=== PATIENT | female | born 1935 | race Caucasian/White ===

== ENCOUNTER 2021-11-04 15:55 | Inpatient (IN) | payer MEDICARE, BC, SELFPAY ==
[2021-11-04] VITALS (17 sets, daily range): BP systolic 90–139; BP diastolic 33–97; PULSE 67–92; RESP 13–20; TEMP 36.1–36.7; O2SAT 96–100
--- NOTE | 2021-11-04 16:30 | RT.EKG_ITS ---
APPROVED REPORT Exam: Resting ECG Reason for Exam: Syncope Patient Location: E HR:70 bpm ECG Measurements Heart Rate 70 AXIS ND 210 P [id number] QRSd 127 QRS -51 QT 438 T 42 QTc 472 Conclusion Atrial-paced rhythm RBBB and LAFB...QRSd >120mS, axis(-40,240) Probable left ventricular hypertrophy...(RaVL+SV3)xQRSd >300
--- NOTE | 2021-11-04 16:52 | ED.GENADUL_ITS ---
Discharge Plan Disposition Patient Disposition: [facility] INPATIENT Condition: Stable Discharge Details Clinical Impression: Anemia due to GI blood loss Admit Date/Time: 11/04/21 18:18 Admit Provider: Christina Rajan Attending Provider: Christina Rajan Primary Care Provider: Dede Miller ED Provider: Ofelia Oquendo Medical Decision Making 86-year-old female presents to the ER via EMS with chief complaint syncopal episode occurred prior to arrival. Patient was making supper in the kitchen when she fainted she denies hitting her head she reports her assisted her down to the floor. She reports having bright red blood from her colostomy stoma for the last 11 days. She had a colostomy placed in [place]. She she denies any abdominal pain, chest pain, shortness of breath, headache or any other associated symptoms. Patient states that she feels okay now. She does have a past medical history of high cholesterol, hypertension, atrial fibrillation, breast cancer, colon cancer with a hemicolectomy and a colostomy. She is alert and oriented x3 upon initial exam she does have dark red blood noted in the ostomy bag. CBC, CMP, PT, PTT, type and screen, serial troponins and EKG ordered. 1710: Critical lab result received from lab hemoglobin 6.9 hematocrit 22.3, will plan for blood transfusion. Discussed plan of care for blood transfusion with patient and who verbalized understanding. General surgeon on-call Dr. Rajan paged. CBC shows white blood cell count of 9.94 RBCs of 2.40, hemoglobin 6.9 hematocrit 22.3, MCHC 30.9%, RDW 15.1%, absolute neutrophils 7 2, PT 11.3 INR 1.1 APTT 19.2, potassium 5.7 chloride 108, carbon dioxide 20 point, BUN 38, creatinine 2.7 GFR 16.7 1814: Spoke with Dr. Rajan general surgeon on-call who agrees to accept patient for admission at this time. HPI General Mode of arrival: EMS . Date/Time Provider Initiated Documentation: 11/04/21 16:40 . Limitations to Documentation: no limitations . Information obtained by: patient, RN notes reviewed and old records reviewed . HPI Narrative: 86-year-old female presents to the ER via EMS with chief complaint syncopal episode occurred prior to arrival. Patient was making supper in the kitchen when she fainted she denies hitting her head she reports her assisted her down to the floor. She reports having bright red blood from her colostomy stoma for the last 11 days. She had a colostomy placed in [facility]. She she denies any abdominal pain, chest pain, shortness of breath, headache or any other associated symptoms. Patient states that she feels okay now. She does have a past medical history of high cholesterol, hypertension, atrial fibrillation, breast cancer, colon cancer with a hemicolectomy and a colostomy. She is alert and oriented x3 upon initial exam she does have dark red blood noted in the ostomy bag. Related Data Home Medications Medication Instructions Recorded Confirmed gabapentin 600 mg PO BID tab-cap NS 09/16/16 11/04/21 metoprolol succinate 100 mg PO QPM 03/13/18 11/04/21 naproxen sodium [Aleve] 220 mg PO BID 11/04/21 11/04/21 Allergies Allergy/AdvReac Type Severity Reaction Status Date / Time No Known Allergies Allergy Unverified 11/04/21 16:31 General Stated Complaint: Dizzy/Sync LETI: 2 Review of Systems All systems reviewed & are unremarkable except as noted in HPI and below Gastrointestinal Gastrointestinal: Denies abdominal pain, Reports hematochezia (X11 days from colostomy) and Denies hematemesis [facility] Active Problem List 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 (Acute) Discharge planning issues (Acute) Medical History Breast cancer Remains RADHA Chronic pain in left foot Hypercholesterolemia Hypertension Paroxysmal atrial fibrillation Surgical History 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 Appears stated age. Normal body habitus. Pale. Head: Normocephalic, no trauma. Eyes: Pupils PERRL, Red reflex noted, EOM's intact. Eyelids symmetrical without lesions, discharge, or swelling. ENT: Bilateral TM's WNL, External ear normal to inspection, no mastoid TTP, swe lling, or erythema, Nasal turbinates WNL, no nasal discharge. Normal dentition, Posterior pharynx WNL, no exudate. Chest: RRR, Normal S1, S2, distal pulses intact. Resp: Lungs clear to auscultation bilaterally, no wheezes, rales, or rhonchi. Abdomen: Soft, non-distended, Normoactive bowel sounds all 4 quads. Colostomy noted to the right lower quadrant. There is dark blood noted in the colostomy bag. Musculoskeletal: Normal gait, 5/5 strength to all four extremities. Skin: No suspicious rashes or lesions. Capillary refill less than 2 sec. Neurologic: Cranial nerves II-XII intact. Alert and oriented x 3. Motor: No deficits noted. Sensory: Intact bilaterally all 4 extremities. Reflexes: DTR's intact bilaterally.. Hematologic/Lymphatic: No ecchymosis, no lymphadenopathy. Course Vital Signs Vital signs: Vital Signs Temperature 36.7 C 11/04/21 16:25 Pulse 70 11/04/21 16:25 Respiratory Rate 15 11/04/21 16:25 Blood Pressure 101/54 L 11/04/21 16:25 Pulse Oximetry 99 11/04/21 16:25 Temperature 36.7 C 11/04/21 16:25 Temperature Source Skin 11/04/21 16:25 Pulse 70 11/04/21 16:25 Respiratory Rate 15 11/04/21 16:25 Respiratory Effort 11/04/21 16:25 Blood Pressure 101/54 L 11/04/21 16:25 Blood Pressure Position Supine 11/04/21 16:25 Pulse Oximetry 99 11/04/21 16:25 Oxygen Delivery Method Room Air 11/04/21 16:25 Oxygen Flow Rate 0 11/04/21 16:25 Pain Level 0 11/04/21 16:25
[2021-11-04 16:55] LABS: Abs Immature Grans 0.04 10^3/uL (0.0-0.06); Absolute Basophil Count 0.07 10^3/uL (0.0-0.2); Absolute Eosinophil Count 0.18 10^3/uL (0.0-0.7); Absolute Lymphocyte Count 2.28 10^3/uL (1.2-3.4); Absolute Monocyte Count 0.65 10^3/uL (0.1-0.8); Absolute Neutrophil Count 6.72 10^3/uL (1.2-6.7); Basophils % 0.7; Eosinophils % 1.8; Immature Grans % 0.4; Lymphocytes % 22.9; MCH 28.8 pg (27.0-33.0); MCHC 30.9 % (32.0-36.0); MCV 92.9 fL (80-95); Monocytes % 6.5; Neutrophils % 67.7; Nucleated RBC 0 %; Platelet Count 158 10^3/uL (130-400); RDW 15.1 % (11.7-14.6); WBC 9.94 10^3/uL (4.4-10.8)
[2021-11-04 17:10] LABS: Diff Comment RBC Morph Reviewed; HCT 22.3 % (36.0-46.0); HGB 6.9 g/dL (11.2-15.7); RBC Morphology Normal
[2021-11-04 17:11] LABS: ALT 19 U/L (14-59); AST 21 U/L (15-37); Albumin 2.9 g/dL (3.4-5.0); Alkaline Phosphatase 69 U/L (46-116); Anion Gap 10.4 mmol/L (3-11); BUN 38 mg/dL (7-18); Bilirubin, Total 1.3 mg/dL (0.2-1.0); CO2 20.6 mmol/L (21.0-32.0); CREATININE 2.7 mg/dL (0.55-1.02); Calcium 8.8 mg/dL (8.5-10.1); Chloride 108 mmol/L (98-107); Estimated GFR 16.75 (mL/min/1.73m2); Glucose 168 mg/dL (74-106); INR 1.1 (0.9-1.1); Magnesium 1.9 mg/dL (1.8-2.4); PTT Activated 19.2 sec (21.0-27.5); Potassium 5.7 mmol/L (3.5-5.1); Prothrombin Time 11.3 sec (9.3-11.0); Sodium 139 mmol/L (136-145); Total Protein 5.5 g/dL (6.4-8.2)
[2021-11-04 17:22] LABS: Troponin I < 0.05 ng/mL (<0.06)
[2021-11-04 17:29] LABS: Bilirubin Negative (Negative); Blood Negative (Negative); Clarity Sl Cloudy (Clear); Glucose Negative (Negative); Ketones Negative (Negative); Leukocyte Esterase Negative (Negative); Nitrite Negative (Negative); Specific Gravity >= 1.030 (1.005-1.025); Urobilinogen 0.2 EU/dL (Up TO 0.2); pH 5.5 (5-8)
[2021-11-04 18:40] LABS: Source Nasal/Nares
--- NOTE | 2021-11-04 18:53 | W.PM.HP.N ---
Date of service: 11/04/21 Time of Service: 18:53 Assessment and Plan Assessment and plan (1) 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: Status: Acute (2) Anemia due to GI blood loss: Status: Acute Assessment and plan: -transfuse to hgb 8 PPI gentle fluids. Pt Cr has generally been nl range -pt has had similar episodes in the past. possible colonoscopy when medically stable risks: Bleeding, infection, perforation, aspiration, complications of anesthesia, disruption of colostomy requiring surgery. obtain medical records from [facility] (3) Colon cancer: Status: Chronic (4) Paroxysmal atrial fibrillation: Status: Acute (5) Hypertension: Status: Acute (6) Hypercholesterolemia: Status: Acute (7) Breast cancer: Status: Acute (8) Chronic pain in left foot: Status: Acute (9) Hyperkalemia: Status: Acute (10) Elevated serum creatinine: Status: Acute History of Present Illness Consults Consult date: 11/04/21 Narrative: pt came to the ED after a syncopa; episode. In the ER she was found to have a hgb ~6. She has a hx of anemia per our system. She has a long standing ostoy due to colon cancer. She bleeding from her colectomy in the past. She is due to have a colonoscopy. She has had polyps for colon cancer. I did review her chart from the. She has minimized her having quite bleeding from the ostomy itself. It is not explained degree of bleeding that she is having. Review of Systems All systems reviewed & are unremarkable except as noted in HPI and below PFSH Active Problem List Elevated serum creatinine (Acute) Hyperkalemia (Acute) Chronic pain in left foot (Acute) Colon cancer (Chronic) Paroxysmal atrial fibrillation (Acute) Hypertension (Acute) Hypercholesterolemia (Acute) Breast cancer (Acute) 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 (Acute) Discharge planning issues (Acute) Anemia due to GI blood loss (Acute) Surgical History 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 Social History (Reviewed 11/05/21 @ 11:50 by UZMA Harley Smoking/Tobacco Use Status: Never Smoking risk assessment performed?: Yes Alcohol Intake: never Drug use: Never Do you feel safe in your relationship?: Yes Meds Allergies and Home Medications Allergies Allergy/AdvReac Type Severity Reaction Status Date / Time No Known Allergies Allergy Unverified 11/04/21 16:31 Home Medications Medication Instructions Recorded Confirmed Type gabapentin 600 mg PO BID tab-cap NS 09/16/16 11/04/21 History metoprolol succinate 100 mg PO QPM 03/13/18 11/04/21 History naproxen sodium [Aleve] 220 mg PO BID 11/04/21 11/04/21 History Exam Resp Effort & Inspection: normal respiratory effort and able to speak in complete sentences Auscultation: clear to auscultation bilaterally Cardio Rate: regular rate Rhythm: regular rhythm GI Other: Surgical changes noted. No abdominal hernia. Ostomy in the right upper quadrant. Several small small pinpoint mucosal bleeders. There is dark old clear blood in the bag and no clots. Good bowel sounds and no abdominal pain Results Labs Result diagrams: 11/05/21 07:12 11/05/21 07:12 Labs: Laboratory Results - last 24 hr 11/04/21 11/04/21 11/04/21 16:20 16:20 16:20 WBC 9.94 RBC 2.40 L Hgb 6.9 L* Hct 22.3 L MCV 92.9 MCH 28.8 MCHC 30.9 L RDW 15.1 H Plt Count 158 MPV 10.0 Immature Gran % 0.4 Neutrophils % 67.7 Lymphocytes % 22.9 Monocytes % 6.5 Eosinophils % 1.8 Basophils % 0.7 Nucleated RBC % 0 Absolute Neutrophils 6.72 H Absolute Lymphocytes 2.28 Absolute Monocytes 0.65 Absolute Eosinophils 0.18 Absolute Basophils 0.07 RBC Morphology Normal PT 11.3 H INR 1.1 APTT 19.2 L Sodium 139 Potassium 5.7 H Chloride 108 H Carbon Dioxide 20.6 L Anion Gap 10.4 BUN 38 H Creatinine 2.7 H Estimated GFR/1.73 m2 16.75 Glucose 168 H Calcium 8.8 Magnesium 1.9 Total Bilirubin 1.3 H AST 21 ALT 19 Alkaline Phosphatase 69 Troponin I < 0.05 Total Protein 5.5 L Albumin 2.9 L Urine Color Urine Clarity Urine pH Ur Specific [place] Urine Protein Urine Ketones Urine Blood Urine Nitrite Urine Bilirubin Urine Urobilinogen Ur Leukocyte Esterase Urine Glucose COVID-19 Source Patient ABO/Rh Antibody Screen Antigen Identification Crossmatch 11/04/21 11/04/21 11/04/21 16:50 17:20 18:30 WBC RBC Hgb Hct MCV MCH MCHC RDW Plt Count MPV Immature Gran % Neutrophils % Lymphocytes % Monocytes % Eosinophils % Basophils % Nucleated RBC % Absolute Neutrophils Absolute Lymphocytes Absolute Monocytes Absolute Eosinophils Absolute Basophils RBC Morphology PT INR APTT Sodium Potassium Chloride Carbon Dioxide Anion Gap BUN Creatinine Estimated GFR/1.73 m2 Glucose Calcium Magnesium Total Bilirubin AST ALT Alkaline Phosphatase Troponin I Total Protein Albumin Urine Color Yellow Urine Clarity Sl Cloudy Urine pH 5.5 Ur Specific [place] >= 1.030 H Urine Protein Negative Urine Ketones Negative Urine Blood Negative Urine Nitrite Negative Urine Bilirubin Negative Urine Urobilinogen 0.2 Ur Leukocyte Esterase Negative Urine Glucose Negative COVID-19 Source Nasal/Nares Patient ABO/Rh A Positive Antibody Screen NEGATIVE Antigen Identification K Antigen - NEGATIVE Crossmatch See Detail Last Vital Signs Temp 36.7 C 11/04/21 16:25 Pulse 67 11/04/21 18:16 Resp 18 11/04/21 18:16 BP 100/60 11/04/21 18:16 Pulse Ox 99 11/04/21 17:48
[2021-11-04 19:24] LABS: COVID-19 PCR Negative (Negative)
[2021-11-04 19:34] LABS: Troponin I < 0.05 ng/mL (<0.06)
[2021-11-04 21:25] LABS: TSH 1.43 uIU/mL (0.36-3.74)
[2021-11-04] MEDS: Pantoprazole 40 MG VIAL IVP (21:43)
[2021-11-04] MEDS: diphenhydrAMINE 25 MG CAP PO (21:44)
[2021-11-04] MEDS: Gabapentin 600 MG TAB PO (21:44)
[2021-11-04] MEDS: Normal Saline Flush 10 ML SYR IVP (21:44)
[2021-11-04] MEDS: Acetaminophen 500 MG TAB 1000 MG PO (21:44)
[2021-11-05] VITALS (18 sets, daily range): BP systolic 105–138; BP diastolic 51–79; PULSE 58–77; RESP 12–70; TEMP 35.9–37; O2SAT 77–99; BMI 32.5
[2021-11-05] MEDS: Normal Saline 1,000 ML 100 ML IV (06:20)
[2021-11-05] MEDS: Normal Saline Flush 10 ML SYR IVP ×3 (06:21→14:04)
--- NOTE | 2021-11-05 07:25 | W.PM.PROGNOT ---
Documented by User: HUNTER Oglesby 11/05/21 07:30 Date of Service Date of service: 11/05/21 Time of Service: 07:25 Assessment and Plan Assessment and plan (1) 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: Status: Acute (2) Anemia due to GI blood loss: Status: Acute Assessment and plan: -transfuse to hgb 8; Morning labs pending -PPI -gentle fluids. Pt Cr has generally been nl range -pt has had similar episodes in the past. Possible colonoscopy when medically stable (3) Colon cancer: Status: Chronic (4) Paroxysmal atrial fibrillation: Status: Acute (5) Hypertension: Status: Acute (6) Hypercholesterolemia: Status: Acute (7) Breast cancer: Status: Acute (8) Chronic pain in left foot: Status: Acute (9) Hyperkalemia: Status: Acute (10) Elevated serum creatinine: Status: Acute Subjective Subjective Interval history since last seen: Patient reports that this morning she was emptying her ostomy, and noted continued bright red blood. She states that while walking to and from the toilet, experienced nausea and light headedness. She denies any pain, nausea or vomiting at this time. Exam Const General: cooperative and comfortable Orientation: alert and oriented x3 Resp Effort & Inspection: normal respiratory effort, no audible wheezes and no cough GI Inspection: normal to inspection Palpation: soft, no guarding and nontender Other: Ostomy- with dark, red blood noted. Minimal stool. Objective Last Vital Signs Temp 35.9 C L 11/05/21 06:47 Pulse 73 11/05/21 06:47 Resp 18 11/05/21 06:47 BP 105/55 L 11/05/21 06:47 Pulse Ox 99 11/05/21 06:47 Laboratory Results - last 24 hr 11/04/21 11/04/21 11/04/21 16:20 16:20 16:20 WBC 9.94 RBC 2.40 L Hgb 6.9 L* Hct 22.3 L MCV 92.9 MCH 28.8 MCHC 30.9 L RDW 15.1 H Plt Count 158 MPV 10.0 Immature Gran % 0.4 Neutrophils % 67.7 Lymphocytes % 22.9 Monocytes % 6.5 Eosinophils % 1.8 Basophils % 0.7 Nucleated RBC % 0 Absolute Neutrophils 6.72 H Absolute Lymphocytes 2.28 Absolute Monocytes 0.65 Absolute Eosinophils 0.18 Absolute Basophils 0.07 RBC Morphology Normal PT 11.3 H INR 1.1 APTT 19.2 L Sodium 139 Potassium 5.7 H Chloride 108 H Carbon Dioxide 20.6 L Anion Gap 10.4 BUN 38 H Creatinine 2.7 H Estimated GFR/1.73 m2 16.75 Glucose 168 H Calcium 8.8 Magnesium 1.9 Total Bilirubin 1.3 H AST 21 ALT 19 Alkaline Phosphatase 69 Troponin I < 0.05 Total Protein 5.5 L Albumin 2.9 L TSH Urine Color Urine Clarity Urine pH Ur Specific [place] Urine Protein Urine Ketones Urine Blood Urine Nitrite Urine Bilirubin Urine Urobilinogen Ur Leukocyte Esterase Urine Glucose COVID-19 Source SARS-CoV-2 (PCR) Patient ABO/Rh Antibody Screen Antigen Identification Crossmatch 11/04/21 11/04/21 11/04/21 16:50 17:20 18:30 WBC RBC Hgb Hct MCV MCH MCHC RDW Plt Count MPV Immature Gran % Neutrophils % Lymphocytes % Monocytes % Eosinophils % Basophils % Nucleated RBC % Absolute Neutrophils Absolute Lymphocytes Absolute Monocytes Absolute Eosinophils Absolute Basophils RBC Morphology PT INR APTT Sodium Potassium Chloride Carbon Dioxide Anion Gap BUN Creatinine Estimated GFR/1.73 m2 Glucose Calcium Magnesium Total Bilirubin AST ALT Alkaline Phosphatase Troponin I Total Protein Albumin TSH Urine Color Yellow Urine Clarity Sl Cloudy Urine pH 5.5 Ur Specific [place] >= 1.030 H Urine Protein Negative Urine Ketones Negative Urine Blood Negative Urine Nitrite Negative Urine Bilirubin Negative Urine Urobilinogen 0.2 Ur Leukocyte Esterase Negative Urine Glucose Negative COVID-19 Source Nasal/Nares SARS-CoV-2 (PCR) Negative Patient ABO/Rh A Positive Antibody Screen NEGATIVE Antigen Identification K Antigen - NEGATIVE Crossmatch See Detail 11/04/21 11/04/21 19:00 19:50 WBC RBC Hgb Hct MCV MCH MCHC RDW Plt Count MPV Immature Gran % Neutrophils % Lymphocytes % Monocytes % Eosinophils % Basophils % Nucleated RBC % Absolute Neutrophils Absolute Lymphocytes Absolute Monocytes Absolute Eosinophils Absolute Basophils RBC Morphology PT INR APTT Sodium Potassium Chloride Carbon Dioxide Anion Gap BUN Creatinine Estimated GFR/1.73 m2 Glucose Calcium Magnesium Total Bilirubin AST ALT Alkaline Phosphatase Troponin I < 0.05 Total Protein Albumin TSH 1.43 Urine Color Urine Clarity Urine pH Ur Specific [place] Urine Protein Urine Ketones Urine Blood Urine Nitrite Urine Bilirubin Urine Urobilinogen Ur Leukocyte Esterase Urine Glucose COVID-19 Source SARS-CoV-2 (PCR) Patient ABO/Rh Antibody Screen Antigen Identification Crossmatch Documented by User: Christina Rjaan DO 11/05/21 11:57 Assessment and Plan Assessment and plan (1) 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: Status: Acute (2) Elevated serum creatinine: Status: Acute Assessment and plan: Anesthesia. Cardiovascular elevated.. I think the benefits outweigh the risks with the findings. Hemorrhage is coming from. I do not feel that bleeding from the patch resulted in her low hemoglobin.
[2021-11-05 07:36] LABS: Abs Immature Grans 0.03 10^3/uL (0.0-0.06); Absolute Basophil Count 0.06 10^3/uL (0.0-0.2); Absolute Eosinophil Count 0.15 10^3/uL (0.0-0.7); Absolute Lymphocyte Count 3.41 10^3/uL (1.2-3.4); Absolute Monocyte Count 0.78 10^3/uL (0.1-0.8); Absolute Neutrophil Count 5.66 10^3/uL (1.2-6.7); Basophils % 0.6; Eosinophils % 1.5; HCT 30.2 % (36.0-46.0); HGB 9.8 g/dL (11.2-15.7); Immature Grans % 0.3; Lymphocytes % 33.8; MCH 28.6 pg (27.0-33.0); MCHC 32.5 % (32.0-36.0); MPV 9.2 fL (8.0-11.0); Monocytes % 7.7; Neutrophils % 56.1; Nucleated RBC 0 %; Platelet Count 112 10^3/uL (130-400); RBC 3.43 10^6/uL (3.93-5.22); RDW 15.1 % (11.7-14.6); RDW-SD 48.4 fL; WBC 10.09 10^3/uL (4.4-10.8)
[2021-11-05 07:39] LABS: Reticulocyte 2.9 % (0.5-2.4)
[2021-11-05 07:53] LABS: Anion Gap 11.2 mmol/L (3-11); BUN 45 mg/dL (7-18); CO2 19.8 mmol/L (21.0-32.0); CREATININE 3.1 mg/dL (0.55-1.02); Calcium 8.8 mg/dL (8.5-10.1); Chloride 109 mmol/L (98-107); Estimated GFR 14.28 (mL/min/1.73m2); Glucose 102 mg/dL (74-106); Potassium 5.5 mmol/L (3.5-5.1); Sodium 140 mmol/L (136-145)
[2021-11-05 08:22] LABS: Ferritin 32 ng/mL (8-252); Magnesium 1.9 mg/dL (1.8-2.4)
--- NOTE | 2021-11-05 08:44 | PDOC.CMIN ---
- If Service Date Differs Date of service: 11/05/21 Time of Service: 08:44 Care Management Initial Assess REASON FOR HOSPITALIZATION:: GI Bleeding, Anemia PAST MEDICAL HISTORY/PAST SURGICAL HISTORY:: Patient reports that this morning she was emptying her ostomy, and noted continued bright red blood. She states that while walking to and from the toilet, experienced nausea and light headedness. She denies any pain, nausea or vomiting at this time. Breast cancer. Remains RADHA. Chronic pain in left foot. Hypercholesterolemia. Hypertension. Paroxysmal atrial fibrillation. Colonoscopy. 2013-Tubullovillous adenoma of the rectosigmoid-Dr. Park @ [facility] [place]-no recurrence. Colostomy. Hemicolectomy (06/30/13). 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 Independent at baseline with ADLs, does have FWW. CURRENT FUNCTIONAL STATUS:: Annamarie was brought to the OR today for a Flexible sigmoidoscopy. She was drowsy this afternoon when CM attempted to meet with her. ADVANCE DIRECTIVES:: None on file. Has patient been provided with info about the portal/API?: No Did the patient sign up for the portal?: No CODE STATUS:: Full Code INSURANCE COVERAGE / FINANCIAL ISSUES:: [employer] IDs only. MCR CURRENT HOME/COMMUNITY SERVICES/EQUIPMENT:: [facility] PRIMARY CARE PHYSICIAN:: Dede Miller POTENTIAL DISCHARGE NEEDS:: Follow up appointments. PATIENT/FAMILY EDUCATION NEEDS:: Review discharge instructions, discuss Ask Me Three. ANTICIPATED BARRIERS TO DISCHARGE:: None identified. TRANSPORTATION:: Via private vehicle with family. PLAN:: Annamarie will return home when ready per MD. She will follow up with her PCP and plan of care as prescribed. She will transport via private vehicle with family.
[2021-11-05 08:45] LABS: Iron 150 ug/dL (50-170); Total Iron Binding Capacity 321 ug/dL (250-450); Transferrin Sat 47 % (15-50)
[2021-11-05] MEDS: Gabapentin 600 MG TAB PO ×2 (08:53→19:41)
[2021-11-05] MEDS: Pantoprazole 40 MG VIAL IVP (08:53)
--- NOTE | 2021-11-05 11:26 | W.ANESPRE ---
General Info Date of Service Date Performed: 11/05/21 Height: 4 ft 11 in Weight: 73.1 kg Body Mass Index (BMI): 32.5 Surgical Procedure: Operation Date: 11/05/21 13:25 Proposed Procedures Side Surgeon p Flexible Sigmoidoscopy Christina Rajan, DO Meds Allergies and Home Medications Allergies Allergy/AdvReac Type Severity Reaction Status Date / Time No Known Allergies Allergy Unverified 11/04/21 16:31 Home Medication Medication Instructions Recorded gabapentin 600 mg PO BID tab-cap NS 09/16/16 metoprolol succinate 100 mg PO QPM 03/13/18 naproxen sodium [Aleve] 220 mg PO BID 11/04/21 Current Visit Medications: Current Medications Generic Name Dose Route Start Last Admin Trade Name Freq PRN Reason Stop Dose Admin Acetaminophen 1,000 mg 11/04/21 18:23 11/04/21 21:44 Acetaminophen 500 Mg Tab PO 1,000 mg Q6H PRN Administration Abdominal Pain Acetaminophen 650 mg 11/04/21 19:00 Acetaminophen 325 Mg Tab PO TODAY HENNA Diphenhydramine HCl 25 mg 11/04/21 18:30 11/04/21 21:44 Diphenhydramine 25 Mg Cap PO 25 mg TODAY HENNA Administration Gabapentin 600 mg 11/04/21 20:00 11/05/21 08:53 Gabapentin 600 Mg Tab PO 600 mg BID HENNA Administration Sodium Chloride 500 mls @ 0 mls/hr 11/04/21 18:18 Saline 500ml Bag IV PRN PRN As Directed Sodium Chloride 500 mls @ 0 mls/hr 11/04/21 18:23 Saline 500ml Bag IV PRN PRN As Directed Sodium Chloride 1,000 mls @ 100 mls/hr 11/04/21 18:30 11/05/21 06:20 Saline 1000ml Bag IV 100 mls/hr INFUSION HENNA Administration IV Miscellaneous Supplies 1 each 11/04/21 18:30 Iv Access IV DIRECTED HENNA IV Miscellaneous Supplies 1 each 11/04/21 18:30 Iv Access IV DIRECTED HENNA Morphine Sulfate 2 mg 11/04/21 18:23 Morphine 2 Mg/Ml Syr IVP Q1H PRN PRN Ondansetron HCl 4 mg 11/04/21 18:23 Ondansetron 4 Mg/2 Ml Vial IVP Q4H PRN PRN Pantoprazole Sodium 40 mg 11/05/21 08:30 11/05/21 08:53 Pantoprazole 40 Mg Vial IVP 40 mg DAILY HENNA Administration Pantoprazole Sodium 40 mg 11/04/21 20:00 11/04/21 21:43 Pantoprazole 40 Mg Vial IVP 40 mg Q24H HENNA Administration Sodium Chloride 0 ml 11/04/21 18:18 11/05/21 08:58 Normal Saline Flush 10 Ml Syr IVP 10 ml PRN PRN Administration Sodium Chloride 0 ml 11/04/21 18:23 Normal Saline Flush 10 Ml Syr IVP PRN PRN PFSH Active Problems Active Problems: Problem Status Onset Code Elevated serum creatinine R79.89 Hyperkalemia E87.5 Chronic pain in left foot Colon cancer C18.9 Paroxysmal atrial fibrillation Hypertension Hypercholesterolemia Breast cancer 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 K94.11 Discharge planning issues Z02.9 Anemia due to GI blood loss D50.0 Medical History Active Problem List Elevated serum creatinine (Acute) Hyperkalemia (Acute) Chronic pain in left foot (Acute) Colon cancer (Chronic) Paroxysmal atrial fibrillation (Acute) Hypertension (Acute) Hypercholesterolemia (Acute) Breast cancer (Acute) 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 (Acute) Discharge planning issues (Acute) Anemia due to GI blood loss (Acute) Surgical History Surgical History 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 Tobacco Smoking/Tobacco Use Status: Never Alcohol Alcohol Intake: never Substance Use Substance use: Never Vital Signs and Lab Results Vital Signs Most Recent Vital Signs in EMR: Most Recent Vital Signs Temp Pulse Resp BP Pulse Ox 36.7 C 58 L 16 132/68 96 11/05/21 08:27 11/05/21 08:27 11/05/21 08:27 11/05/21 08:27 11/05/21 08:27 Lab Results Result Diagrams: 11/05/21 07:12 11/05/21 07:12 Blood Type / Crossmatch: Patient ABO/Rh A Positive 11/04/21 16:50 11/04/21 Antibody Screen NEGATIVE 11/04/21 16:50 11/04/21 Crossmatch See Detail 11/04/21 16:50 11/04/21 Complete Blood Count: White Blood Count 10.09 10^3/uL (4.4-10.8) 11/05/21 07:12 11/05/21 Red Blood Count 3.43 10^6/uL (3.93-5.22) L 11/05/21 07:12 11/05/21 Hemoglobin 9.8 g/dL (11.2-15.7) L 11/05/21 07:12 11/05/21 Hematocrit 30.2 % (36.0-46.0) L 11/05/21 07:12 11/05/21 Platelet Count 112 10^3/uL (130-400) L 11/05/21 07:12 11/05/21 Complete Metabolic Panel: Sodium Level 140 mmol/L (136-145) 11/05/21 07:12 11/05/21 Potassium Level 5.5 mmol/L (3.5-5.1) H 11/05/21 07:12 11/05/21 Chloride Level 109 mmol/L (98-107) H 11/05/21 07:12 11/05/21 Carbon Dioxide Level 19.8 mmol/L (21.0-32.0) L 11/05/21 07:12 11/05/21 Blood Urea Nitrogen 45 mg/dL (7-18) H 11/05/21 07:12 11/05/21 Creatinine 3.1 mg/dL (0.55-1.02) H 11/05/21 07:12 11/05/21 Estimated GFR/1.73 m2 14.28 (mL/min/1.73m2) 11/05/21 07:12 11/05/21 Magnesium Level 1.9 mg/dL (1.8-2.4) 11/05/21 07:12 11/05/21 Calcium Level 8.8 mg/dL (8.5-10.1) 11/05/21 07:12 11/05/21 Albumin 2.9 g/dL (3.4-5.0) L 11/04/21 16:20 11/04/21 Glucose Level 102 mg/dL (74-106) 11/05/21 07:12 11/05/21 Liver Function Panel: Alanine Aminotransferase (ALT/SGPT) 19 U/L (14-59) 11/04/21 16:20 11/04/21 Aspartate Amino Transf (AST/SGOT) 21 U/L (15-37) 11/04/21 16:20 11/04/21 Coagulation Panel: INR International Normalized Ratio 1.1 (0.9-1.1) 11/04/21 16:20 11/04/21 Prothrombin Time 11.3 sec (9.3-11.0) H 11/04/21 16:20 11/04/21 Activated Partial Thromboplast Time 19.2 sec (21.0-27.5) L 11/04/21 16:20 11/04/21 Cardiac Panel: Troponin I < 0.05 ng/mL (<0.06) 11/04/21 19:00 11/04/21 Arterial Blood Gas: No Data to Display Venous Blood Gas: No Data to Display Pancreas Panel: No Data to Display Thyroid Panel: Thyroid Stimulating Hormone (TSH) 1.43 uIU/mL (0.36-3.74) 11/04/21 19:50 11/04/21 Infectious Disease: Coronavirus (COVID-19)(PCR) Negative (Negative) 11/04/21 18:30 11/04/21 Coronavirus 2019 Source Nasal/Nares 11/04/21 18:30 11/04/21 Blood Cultures: No Data to Display Toxicology Panel: No Data to Display Imaging and Studies Imaging and Studies Study information below may be from another EMR and interpreted by another provider. Please see original notes in EMR for more complete details. EKG Summary: 11/04/2021: RBBB with left axis bifacicular block. ? LVH. Anesthesia Assessment and Plan Anesthesia History Personal History: No History of Anesthesia Complications Family History: No Family History of Anesthesia Complications Exercise Tolerance Exercise Tolerance: Metabolic Equivalents>4 Pertinent Negatives Pertinent Negatives: No Symptoms of GERD, No Major Cardiovascular Symptoms or Complaints, No Major Pulmonary Symptoms or Complaints and No History of CVA/TIA Cardiac & Pulmonary Exam Cardiac Exam: Normal S1/S2 Heart Sounds Pulmonary Exam: Clear Bilateral Breath Sounds Implantable Cardiac Device Does patient have a Pacemaker or an ICD?: Yes Device [employer] Superintendent:: [email or web address] alonso DR [id number] DDDR Reason for Placement:: Tachy-wyatt syndrome Date of Last Device Interrogation:: 09/2021 Airway Exam Known Difficult Airway: No Mallampati Class: 3 Mouth Opening: Narrow (< 3cm) Thyromental Distance: Less than 3 cm Neck Range of Motion: Full ROM Neck Circumference: Normal Teeth Condition: Generalized Poor Dentition Airway Comments: #21, 11 missing ASA Classification ASA Score: ASA 3 Emergency Case?: No NPO Status NPO Status: NPO Clears >2 hours, Solids >8 hours Anesthesia Plan Resuscitation Status: Full Code Anesthesia Technique: MAC Anesthesia Airway Planned: Natural Airway Monitors Used: Standard Monitors Preoperative Comments:: 86 yo female who presented to the ED with syncope and was found to have a hgb of 6 to get a flex sig. Currently receiving pantoprazole, has also had 2 units of PRBC. Sig PMHx: HTN, CKD, pAFib (metoprolol does not appear that she has had this since she got admitted), Pacer (medtronic gavin MERRILL [id number] DDDR), s/p hemicolectomy with colostomy. Previous Anes: Mac 3 grade 1 in 2013 for ex lap. LMA 4 2005 for mastectomy.
[2021-11-05] MEDS: Lactated Ringers 500 ML 30 ML IV (13:24)
--- NOTE | 2021-11-05 14:05 | W.ANESPOSTOP ---
Postoperative Evaluation Date, Time and Location Date Performed: 11/05/21 Time Performed: 14:05 Patient Location: Med/Surg Vital Signs Most Recent Imported Vital Signs: Most Recent Vital Signs Temp Pulse Resp BP Pulse Ox 36 C L 75 12 115/51 L 98 11/05/21 13:59 11/05/21 13:59 11/05/21 13:59 11/05/21 13:59 11/05/21 13:59 Pain Score Most Recent Pain Score: Most Recent Pain Score Pain Level 0 11/05/21 13:59 Assessment Mental Status: Awake (Alert & Oriented to Patient Baseline) Airway and Respiratory Function: Patent airway with normal (patient baseline) respiratory exam Cardiovascular Function: Hemodynamically Stable Hydration Status: Adequately Hydrated Nausea & Vomiting: No Nausea or Vomiting Pain: Pt. Denies Any Pain Peripheral Nerve Block: Patient did not receive a nerve block
[2021-11-05] MEDS: Normal Saline 1,000 ML 75 ML IV ×2 (16:45→18:25)
[2021-11-05 18:10] LABS: CEA 1.7 ng/mL (See Note)
--- NOTE | 2021-11-05 21:55 | W.PM.OP ---
Date of service: 11/05/21 Time of Service: 21:55 Operative Note Operative Note DATE OF PROCEDURE: 11/05/21 PRE-OP DIAGNOSIS: anemia/hx of CRC. bleeding from ostomy POST-OP DIAGNOSIS: other (no signs of recurrence of cancer) PROCEDURE: scope of ileal pouch cauterize/oversew of bleeders on ostomy SURGEON: Christina Rajan ANESTHESIA TYPE: General:No Airway Refer to Anesthesia Record ESTIMATED BLOOD LOSS: 0 PATHOLOGY: none sent COMPLICATIONS: None Patient was transported to: floor Patient's condition: stable Procedure Description: After informed consent was obtained the patient was taken to the procedure room and placed in a supine position. Monitors were applied and a time out was done. The patients name, date of , procedure, allergies to medications and metal in their body was reviewed. The patient was then sedated. Once sedated and comfortable an exam of the ostomy was done. it the mucosal epidermal interface- there is increase in venous vasculature. There are some punctate hemorrhage, The scope was then introduced and retrofelexed. There are no signs of ulceration or masses. I did run the scope in for baout 30cm. This is an ileosotmy. The scope was then slowly retracted. The mucosa appears normal and no signs of bleeding. The the punctate areas of hemorrhage are cauterized. There is one large area where there is a dilated vein that is bleeding, this is oversewn with a 3-0 Vicryl. There is no further bleeding noted. Appliance is applied. Patient tolerated the procedure well. the scope was removed and the patient was woken up and taken [facility]. The patient tolerated the procedure well and there were no immediate complications. because of her elevated creatinine, that is probably due to her hypovolemia from her severe anemia, I do want to keep her on IV hydration overnight and repeat her labs in the morning. Once they are trending down then we will discharge her home and have her follow-up with her PCP Follow up: The patient should follow up in [] years unless they develop changes in bowel habits or other new gastrointestinal complaints.
--- NOTE | 2021-11-06 | DI.US_ITS ---
Exam(s) US RENAL EXAM: US RENAL CLINICAL HISTORY: ABBIE. TECHNIQUE: Bridges scale, color and spectral Doppler were used. COMPARISON: No exams were available for comparison FINDINGS: Renal size in cm: Right: 9.3. Left: 10.8. Echogenicity: Mild bilateral renal cortical atrophy. Hydronephrosis: No. Cyst or mass: 2 simple cysts in the inferior pole of the left kidney. The smaller measures 3.1 x 2.4 x 3.2 cm. The larger measures 6.3 x 6.2 x 5.6 cm. Nephrolithiasis: No. Other findings: None. Bladder:Normal. Ureteral jets: Right: Visualized and unremarkable. Left: Visualized and unremarkable. Prevoid vol:193 cc Postvoid vol:0 cc Renal color flow: Symmetric and within normal limits. IMPRESSION: 1. Mild bilateral renal cortical atrophy. 2. Left renal simple cysts. No follow-up is recommended. DATA REPOSITORY:
[2021-11-06] MEDS: Normal Saline 1,000 ML 75 ML IV (05:30)
[2021-11-06 07:14] LABS: Anion Gap 10.4 mmol/L (3-11); BUN 47 mg/dL (7-18); CO2 18.6 mmol/L (21.0-32.0); CREATININE 3.2 mg/dL (0.55-1.02); Chloride 110 mmol/L (98-107); Estimated GFR 13.77 (mL/min/1.73m2); Glucose 88 mg/dL (74-106); Magnesium 1.9 mg/dL (1.8-2.4); Potassium 5.3 mmol/L (3.5-5.1); Sodium 139 mmol/L (136-145)
[2021-11-06] MEDS: Normal Saline Flush 10 ML SYR IVP (08:09)
[2021-11-06] MEDS: Gabapentin 600 MG TAB PO (08:09)
[2021-11-06] MEDS: Pantoprazole 40 MG VIAL IVP (08:09)
[2021-11-06 08:10] VITALS: BP 124/73; PULSE 70; RESP 17; TEMP 36.5; O2SAT 96
--- NOTE | 2021-11-06 09:10 | W.PM.PROGNOT ---
Date of Service Date of service: 11/06/21 Time of Service: 09:10 Assessment and Plan Assessment and plan (1) 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: Status: Acute (2) Anemia due to GI blood loss: Status: Acute Assessment and plan: Patient is feeling much better and is stable. No further bleeding following cautery of bleeding sources from stoma. Tolerating post-op diet. D/C home later today. (3) Colon cancer: Status: Chronic (4) Paroxysmal atrial fibrillation: Status: Acute (5) Hypertension: Status: Acute (6) Hypercholesterolemia: Status: Acute (7) Breast cancer: Status: Acute (8) Chronic pain in left foot: Status: Acute (9) Hyperkalemia: Status: Acute (10) Elevated serum creatinine: Status: Acute Subjective Subjective Interval history since last seen: Patient reports that she is feeling very well this morning. She is eager to return home today. She denies any feelings of SOB, chest pain, light headedness, nausea or vomiting. She has not noted any further bleeding from her ostomy. Exam Const General: cooperative, healthy appearing and comfortable Orientation: alert and oriented x3 Resp Effort & Inspection: normal respiratory effort, no audible wheezes and no cough GI Inspection: normal to inspection and non-distended Palpation: soft, no guarding and nontender Other: Ostomy- No blood noted. soft, light brown stool and pieces of food noted in the bag. Objective Last Vital Signs Temp 36.5 C 11/06/21 08:10 Pulse 70 11/06/21 08:10 Resp 17 11/06/21 08:10 BP 124/73 11/06/21 08:10 Pulse Ox 96 11/06/21 08:10 Laboratory Results - last 24 hr 11/04/21 11/05/21 11/06/21 16:50 07:12 06:25 Sodium 139 Potassium 5.3 H Chloride 110 H Carbon Dioxide 18.6 L Anion Gap 10.4 BUN 47 H Creatinine 3.2 H Estimated GFR/1.73 m2 13.77 Glucose 88 Calcium 8.0 L Magnesium 1.9 Carcinoembryonic Ag 1.7 Antibody Screen NEGATIVE Crossmatch See Detail
--- NOTE | 2021-11-06 09:14 | DSE_ITS ---
Documented by User: HUNTER Oglesby 11/06/21 09:21 Date of service: 11/06/21 Time of Service: 09:14 DS: Diagnosis Discharge Diagnosis (1) 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: Status: Acute (2) Anemia due to GI blood loss: Status: Acute (3) Colon cancer: Status: Chronic (4) Paroxysmal atrial fibrillation: (5) Hypertension: (6) Hypercholesterolemia: Status: Acute (7) Breast cancer: (8) Chronic pain in left foot: Status: Acute (9) Hyperkalemia: Status: Acute (10) Elevated serum creatinine: Status: Acute Discharge Plan Disposition Patient Disposition: HOME Condition: Stable Discharge Details Reason For Visit: GI Bleeding, Anemia Admit Date/Time: 11/04/21 18:18 Admit Provider: Christina Rajan Attending Provider: Christina Rajan Primary Care Provider: Dede Miller Hospital Course Hospital Course: 86 y/o female with a history of a fib, colon cancer, HTN presented to the ER following a syncopal episode. Patient reported having bleeding from her stoma x 11 days prior to this. She was admitted and transfused 2 units of RBCs. Patient's Hgb increased to 9.8. Patient under went a Colonoscopy for further diagnostics for source of bleeding. Bleeding source was around the stoma, this was cauterized. Following this intervention, the patient had no further bleeding. Patient was stable over night and tolerated a post-op diet. Patient's discharge was held up for 24 hours because she had continued bleeding hemoglobin. She received another unit of blood on 11/07. She will be discharged home today as well 11/08. She will follow-up with me in the office next week for lab repeat Home Meds and New Rx's Prescriptions: Continued gabapentin 600 MG tablet 600 mg PO BID RF: 0 naproxen sodium [Aleve] 220 mg Tablet 220 mg PO BID RF: 0 metoprolol succinate 100 MG tablet extended release 24 hr 100 mg PO QPM RF: 0 Discharge Instructions Instructions: Anemia (DC) Stand Alone Forms: Nursing Discharge Form Referrals: Dede Miller [Primary Care Provider] - 11/18/21 10:45 am Christina Rajan DO [OSTEOPATHIC DOCTOR] - 11/14/21 9:15 am Activity:: Activity as Tolerated Equipment/Supplies:: No Equipment Needed Diet:: As Tolerated Discharge Orders Discharge Orders: Discharge Order (Routine); Ordered 11/08/21 Ordered By: Chritsina Rajan DS: Summary Time Spent with Patient providing and/or coordinating discharge services: Less than 30 minutes Status at Discharge Functional status at discharge: independent ambulation Overall status at discharge: patient is back to baseline Mental Status: mental status grossly normal Speech and Movement: speech and movement normal Mood: congruent mood Affect: normal affect Exam Const General: cooperative, healthy appearing and comfortable Orientation: alert and oriented x3 Resp Effort & Inspection: normal respiratory effort, no audible wheezes and no cough GI Palpation: soft, no guarding and nontender Psych Mental Status: mental status grossly normal Speech and Movement: speech and movement normal Mood: congruent mood Affect: normal affect DS: Data Vitals/I&O Vitals and I&O: Vital Signs Temperature 36.5 C 11/06/21 08:10 Temperature Source Temporal Artery Scan 11/06/21 08:10 Pulse 70 11/06/21 08:10 Pulse Rhythm Regular 11/06/21 08:24 Pulse 70 11/04/21 18:16 Respiratory Rate 17 11/06/21 08:10 Respiratory Effort 11/06/21 08:24 Respiratory Depth Normal 11/06/21 08:24 Respiratory Pattern Normal 11/06/21 08:24 Blood Pressure 124/73 11/06/21 08:10 Blood Pressure Mean 70 11/04/21 18:16 Blood Pressure Position Supine 11/04/21 16:25 Pulse Oximetry 96 11/06/21 08:10 Oxygen Delivery Method Room Air 11/06/21 08:10 Oxygen Flow Rate 0 11/06/21 08:10 Pain Level 0 11/06/21 08:10 Intake & Output 11/05/21 11/06/21 11/06/21 18:59 06:59 18:59 Intake Total 1225 / 2225 1000 / 2225 240 / 240 Output Total 200 / 450 250 / 450 100 / 100 Balance 1025 / 1775 750 / 1775 140 / 140 Weight 73.1 kg 73.8 kg Intake: IV 1225 / 2225 1000 / 2225 Oral 240 / 240 Output: Urine 100 / 100 Stool 100 / 350 250 / 350 100 / 100 Other: Urine Color Pale Pale Yellow Yellow Urine Appearance Clear Clear Urine Odor None None Comment per patient she voided in toilet Stool Characteristics Liquid Bloody Voiding Methods Toilet Toilet Data Completed and Pending Labs on day of discharge: Labs from last 24 hours 11/06/21 11/05/21 11/04/21 06:25 07:12 16:50 Sodium 139 Potassium 5.3 H Chloride 110 H Carbon Dioxide 18.6 L Anion Gap 10.4 BUN 47 H Creatinine 3.2 H Estimated GFR/1.73 m2 13.77 Glucose 88 Calcium 8.0 L Magnesium 1.9 Carcinoembryonic Ag 1.7 Antibody Screen NEGATIVE Crossmatch See Detail [facility] Medical History (Updated 11/06/21 @ 16:52 by Trish Morillo MD) Breast cancer Remains RADHA Cirrhosis CKD (chronic kidney disease), stage III H/O malignant neoplasm of colon History of breast cancer Hypertension Ischemic neuropathy of foot CONTRERAS (nonalcoholic steatohepatitis) PAD (peripheral artery disease) Paroxysmal atrial fibrillation Surgical History 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 Social History Smoking/Tobacco Use Status: Never Smoking risk assessment performed?: Yes Alcohol Intake: never Drug use: Never Do you feel safe in your relationship?: Yes Documented by User: Rosaura Mike MD 11/06/21 15:00 Discharge Plan Disposition Patient Disposition: HOME Condition: Stable Discharge Details Reason For Visit: GI Bleeding, Anemia Admit Date/Time: 11/04/21 18:18 Admit Provider: Christina Rajan Attending Provider: Christina Rajan Primary Care Provider: Dede Miller Hospital Course Hospital Course: 86 y/o female with a history of a fib, colon cancer, HTN presented to the ER following a syncopal episode. Patient reported having bleeding from her stoma x 11 days prior to this. She was admitted and transfused 2 units of RBCs. Patient's Hgb increased to 9.8. Patient under went a Colonoscopy for further diagnostics for source of bleeding. Bleeding source was around the stoma, this was cauterized. Following this intervention, the patient had no further bleeding. Patient was stable over night and tolerated a post-op diet. Patient's discharge was held up for 24 hours because she had continued bleeding hemoglobin. She received another unit of blood on 11/07. She will be discharged home today as well 11/08. She will follow-up with me in the office next week for lab repeat Home Meds and New Rx's Prescriptions: Continued gabapentin 600 MG tablet 600 mg PO BID RF: 0 naproxen sodium [Aleve] 220 mg Tablet 220 mg PO BID RF: 0 metoprolol succinate 100 MG tablet extended release 24 hr 100 mg PO QPM RF: 0 Discharge Instructions Instructions: Anemia (DC) Stand Alone Forms: Nursing Discharge Form Referrals: Dede Miller [Primary Care Provider] - 11/18/21 10:45 am Christina Rajan DO [OSTEOPATHIC DOCTOR] - 11/14/21 9:15 am Activity:: Activity as Tolerated Equipment/Supplies:: No Equipment Needed Diet:: As Tolerated Discharge Orders Discharge Orders: Discharge Order (Routine); Ordered 11/08/21 Ordered By: Christina Rajan [facility] Medical History (Updated 11/06/21 @ 16:52 by Trish Morillo MD) Breast cancer Remains RADHA Cirrhosis CKD (chronic kidney disease), stage III H/O malignant neoplasm of colon History of breast cancer Hypertension Ischemic neuropathy of foot CONTRERAS (nonalcoholic steatohepatitis) PAD (peripheral artery disease) Paroxysmal atrial fibrillation Surgical History 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 Social History Smoking/Tobacco Use Status: Never Smoking risk assessment performed?: Yes Alcohol Intake: never Drug use: Never Do you feel safe in your relationship?: Yes Documented by User: Christina Rajan DO 11/08/21 10:53 Discharge Plan Disposition Patient Disposition: HOME Condition: Stable Discharge Details Reason For Visit: GI Bleeding, Anemia Admit Date/Time: 11/04/21 18:18 Admit Provider: Christina Rajan Attending Provider: Christina Rajan Primary Care Provider: Dede Miller Hospital Course Hospital Course: 86 y/o female with a history of a fib, colon cancer, HTN presented to the ER following a syncopal episode. Patient reported having bleeding from her stoma x 11 days prior to this. She was admitted and transfused 2 units of RBCs. Patient's Hgb increased to 9.8. Patient under went a Colonoscopy for further diagnostics for source of bleeding. Bleeding source was around the stoma, this was cauterized. Following this intervention, the patient had no further bleeding. Patient was stable over night and tolerated a post-op diet. Patient's discharge was held up for 24 hours because she had continued bleeding hemoglobin. She received another unit of blood on 11/07. She will be discharged home today as well 11/08. She will follow-up with me in the office next week for lab repeat Home Meds and New Rx's Prescriptions: Continued gabapentin 600 MG tablet 600 mg PO BID RF: 0 naproxen sodium [Aleve] 220 mg Tablet 220 mg PO BID RF: 0 metoprolol succinate 100 MG tablet extended release 24 hr 100 mg PO QPM RF: 0 Discharge Instructions Instructions: Anemia (DC) Stand Alone Forms: Nursing Discharge Form Referrals: Dede Miller [Primary Care Provider] - 11/18/21 10:45 am Christina Rajan DO [OSTEOPATHIC DOCTOR] - 11/14/21 9:15 am Activity:: Activity as Tolerated Equipment/Supplies:: No Equipment Needed Diet:: As Tolerated Discharge Orders Discharge Orders: Discharge Order (Routine); Ordered 12/10/21 Ordered By: Christina Rajan [facility] Medical History (Updated 11/06/21 @ 16:52 by Trish Morillo MD) Breast cancer Remains RADHA Cirrhosis CKD (chronic kidney disease), stage III H/O malignant neoplasm of colon History of breast cancer Hypertension Ischemic neuropathy of foot CONTRERAS (nonalcoholic steatohepatitis) PAD (peripheral artery disease) Paroxysmal atrial fibrillation Surgical History 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
--- NOTE | 2021-11-06 09:15 | PDOC.CMPRO ---
- If Service Date Differs Date of service: 11/06/21 Time of Service: 09:15 Care Management Progress Note S/O: A: Annamarie is an 86 year old woman admitted on 11/04/21 with GI Bleeding and anemia P:Annamarie will likely return home when ready per MD. She will follow up with her PCP and plan of care as prescribed. She will transport via private vehicle with family.CM will continue to support Annamarie and assess for discharge needs and concerns
[2021-11-06 12:46] VITALS: BP 166/72; PULSE 70; RESP 17; TEMP 36.6; O2SAT 98
[2021-11-06 13:44] LABS: HCT 24.5 % (36.0-46.0)
[2021-11-06] MEDS: Lactated Ringers 1,000 ML 75 ML IV (15:30)
--- NOTE | 2021-11-06 15:41 | PDOC.CMDIS ---
- If Service Date Differs Date of service: 11/06/21 Time of Service: 15:41 LACE Index Scoring Tool - Questions: Length of Stay (in days): 2 Acuity (Admit via E.D.?): Yes Comorbidities: Any Tumor E.D. Visits: 1 - Answers: Total Score: 8 Risk of Readmission: Low Risk Care Management Discharge Reason for Hospitalization: GI Bleeding, Anemia Discharge Plan: Annamarie will return home when ready per MD. She will follow up with her PCP and plan of care as prescribed. She will transport via private vehicle with family. Patient/Family Education Needs: Review discharge instructions, medications, limitations, follow up plan, discuss Ask Me Three.
--- NOTE | 2021-11-06 16:32 | W.MEDCONSULT ---
Date of service: 11/06/21 Time of Service: 16:32 Assessment and Plan Assessment and plan (1) Acute kidney injury superimposed on chronic kidney disease: Status: Acute Assessment and plan: DDx: ATN from hypoperfusion/anemia (bleeding had been going on since before ), due to NSAIDs, less likely hepatorenal. Progression of hypertensive disease this quickly is less likely. Abstain from NSAIDs. Repeat UA looking for casts, protein. Continue IVF. Check CPK. Check FeNA. Monitor for urinary retention. Recheck labs in am. *It is ok to use tylenol in cirrhotics for a maximum daily dose of 2000 mg/day, if pain control becomes an issue. 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 She required a transfusion of 2 units of PRBCs. Hospitalists were consulted for ABBIE on CKD. The patient presented here with a Cr of 2.7 which is now up to 3.2 despite IVF and blood transfusion. Her Renal ultrasound does not reveal an explanation for this. Per my research, the last time her bloodwork was checked by PCP was in 05/2021, at which time her Cr was 2.0. Of note, the patient was on naproxen 220 mg PO BID for three weeks prior to her admission (for her arthritis of the hands and foot pain). and on gapabentin 600 mg PO BID as outpatient. She has never tried tylenol. Consults Consult date: 11/06/21 Requesting physician: Rosaura Mike Review of Systems All systems reviewed & are unremarkable except as noted in HPI and below PFSH Active Problem List (Updated 11/06/21 @ 16:52 by Trish Morillo MD) Acute kidney injury superimposed on chronic kidney disease (Acute) Pacemaker (Acute) Elevated serum creatinine (Acute) Hyperkalemia (Acute) Chronic pain in left foot (Acute) Colon cancer (Chronic) Hypercholesterolemia (Acute) 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 (Acute) Discharge planning issues (Acute) Anemia due to GI blood loss (Acute) Medical History (Updated 11/06/21 @ 16:52 by Trish Morillo MD) Breast cancer Remains RADHA Cirrhosis CKD (chronic kidney disease), stage III H/O malignant neoplasm of colon History of breast cancer Hypertension Ischemic neuropathy of foot CONTRERAS (nonalcoholic steatohepatitis) PAD (peripheral artery disease) Paroxysmal atrial fibrillation Surgical History 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 Park @ [facility] [place], 2015-no recurrence Colostomy Hemicolectomy (06/30/13) Right, due to colonic perforation from adenocarcinoma of transverse colon Social History Smoking/Tobacco Use Status: Never Smoking risk assessment performed?: Yes Alcohol Intake: never Drug use: Never Do you feel safe in your relationship?: Yes Exam Narrative Exam Narrative: General: Very pleasant elderly female, A&Ox3, laying comfortably flat in bed on room air, asleep, wakes up easily Neurological: No focal deficits Psychiatric: Appropriate speech pattern/content Skin: Visible skin intact HEENT: Atraumatic, normocephalic, EOMI, MMM, no goiter or JVD Cardiovascular: RRR, no m/r/g Lungs: CTAB Gastrointestinal: soft, ileostomy site without bleeding currently, brown output in ostomy Genitourinary: deferred Extremities: no edema BLE's Results Last Vital Signs Temp 36.6 C 11/06/21 12:46 Pulse 70 11/06/21 12:46 Resp 17 11/06/21 12:46 BP 166/72 H 11/06/21 12:46 Pulse Ox 98 11/06/21 12:46 Labs Result diagrams: 11/06/21 13:40 11/06/21 06:25 Labs: Laboratory Results - last 24 hr 11/05/21 11/06/21 11/06/21 07:12 06:25 13:40 Hgb 8.0 L Hct 24.5 L Sodium 139 Potassium 5.3 H Chloride 110 H Carbon Dioxide 18.6 L Anion Gap 10.4 BUN 47 H Creatinine 3.2 H Estimated GFR/1.73 m2 13.77 Glucose 88 Calcium 8.0 L Magnesium 1.9 Carcinoembryonic Ag 1.7 Imaging Additional studies: US renal: 1. Mild bilateral renal cortical atrophy. 2. Left renal simple cysts. No follow-up is recommended.
[2021-11-06 19:22] VITALS: BP 126/75; PULSE 70; RESP 16; TEMP 36; O2SAT 99
[2021-11-06 21:02] LABS: Bilirubin Negative (Negative); Blood Negative (Negative); Clarity Clear (Clear); Glucose Negative (Negative); Ketones Negative (Negative); Leukocyte Esterase Small (Negative); Nitrite Negative (Negative); Specific Gravity 1.025 (1.005-1.025); Urobilinogen 0.2 EU/dL (Up TO 0.2); pH 5.5 (5-8)
[2021-11-06 21:06] LABS: Creatinine,Urine 92.01 mg/dL; Sodium, Urine 3 mmol/L
[2021-11-06 21:13] LABS: Bacteria Few HPF (Negative); C & S Indicated? No/Sq. Contamination; Casts Negative LPF (Negative); Crystals Negative HPF (Negative); Epithelial Cells Moderate HPF (Negative); Mucus Negative (Negative); RBC Negative HPF (0-2)
[2021-11-06 23:39] VITALS: BP 113/65; PULSE 76; RESP 17; TEMP 36.9; O2SAT 97
[2021-11-07] VITALS (7 sets, daily range): BP systolic 117–149; BP diastolic 62–81; PULSE 70–78; RESP 12–18; TEMP 36.4–36.8; O2SAT 95–99
[2021-11-07] MEDS: Lactated Ringers 1,000 ML 75 ML IV ×2 (04:10→19:55)
[2021-11-07 07:50] LABS: Creatine Kinase 70 U/L (26-192); Magnesium 1.8 mg/dL (1.8-2.4)
[2021-11-07 07:51] LABS: ALT 9 U/L (14-59); AST 17 U/L (15-37); Albumin 2.3 g/dL (3.4-5.0); Alkaline Phosphatase 53 U/L (46-116); Anion Gap 9.2 mmol/L (3-11); BUN 39 mg/dL (7-18); Bilirubin, Total 1.3 mg/dL (0.2-1.0); CO2 19.8 mmol/L (21.0-32.0); CREATININE 2.9 mg/dL (0.55-1.02); Calcium 8.4 mg/dL (8.5-10.1); Chloride 112 mmol/L (98-107); Estimated GFR 15.42 (mL/min/1.73m2); Glucose 103 mg/dL (74-106); Potassium 4.8 mmol/L (3.5-5.1); Sodium 141 mmol/L (136-145); Total Protein 4.6 g/dL (6.4-8.2)
[2021-11-07 08:01] LABS: Abs Immature Grans 0.01 10^3/uL (0.0-0.06); Absolute Basophil Count 0.02 10^3/uL (0.0-0.2); Absolute Eosinophil Count 0.09 10^3/uL (0.0-0.7); Absolute Lymphocyte Count 1.13 10^3/uL (1.2-3.4); Absolute Monocyte Count 0.32 10^3/uL (0.1-0.8); Basophils % 0.5; Eosinophils % 2.2; Immature Grans % 0.2; MCH 28.7 pg (27.0-33.0); MCHC 32.7 % (32.0-36.0); MCV 87.9 fL (80-95); MPV 9.5 fL (8.0-11.0); Monocytes % 7.9; Neutrophils % 61.2; Nucleated RBC 0 %; RBC 2.23 10^6/uL (3.93-5.22); RDW 15.1 % (11.7-14.6); RDW-SD 47.8 fL; WBC 4.03 10^3/uL (4.4-10.8)
[2021-11-07] MEDS: Gabapentin 100 MG CAP PO ×3 (08:02→19:54)
[2021-11-07] MEDS: Pantoprazole 40 MG VIAL IVP (08:02)
[2021-11-07 08:04] LABS: Absolute Neutrophil Count 2.47 10^3/uL (1.2-6.7)
[2021-11-07 08:05] LABS: HCT 19.6 % (36.0-46.0); HGB 6.4 g/dL (11.2-15.7)
[2021-11-07 08:33] LABS: Diff Comment Diff Reviewed
[2021-11-07 08:34] LABS: Anisocytosis 1+; Macrocytosis 1+; Platelet Count 82 10^3/uL (130-400)
[2021-11-07] MEDS: Acetaminophen 325 MG TAB 650 MG PO (09:54)
--- NOTE | 2021-11-07 11:06 | PGE_ITS ---
Date of Service Date of service: 11/07/21 Time of Service: 11:06 Assessment and Plan Assessment and plan (1) Acute kidney injury superimposed on chronic kidney disease: Status: Acute (2) Pacemaker: Status: Acute (3) 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: Status: Acute (4) Anemia due to GI blood loss: Status: Acute Assessment and plan: -pt had repeat bleeding yesterday and oversew of bleeding vein yesterday. Her hgb today 6.8 Her creatinine is trending down Transfused with an additional unit of blood today. Recommendations from hospitalist appreciated. Subjective Subjective Interval history since last seen: Nursing reports that she did have some blood in her colostomy overnight. Dr. Pereira did have ligate another bleeder yesterday. No current bleeding. no pain. Tolerating po's + output form ostomy no headaches. No CP or SOB. no productive cough. no dysuria. no leg pain or swelling. Exam Const Other: L: cta b/l no CP or SOB abdom: soft good BS LE: no C/C/E Objective Last Vital Signs Temp 36.8 C 11/07/21 10:20 Pulse 78 11/07/21 10:20 Resp 14 11/07/21 10:20 BP 124/67 11/07/21 10:20 Pulse Ox 96 11/07/21 10:20 Laboratory Results - last 24 hr 11/04/21 11/06/21 11/06/21 16:50 13:40 19:30 WBC RBC Hgb 8.0 L Hct 24.5 L MCV MCH MCHC RDW Plt Count MPV Immature Gran % Neutrophils % Band Neutrophils % Lymphocytes % Atypical Lymphs % Monocytes % Eosinophils % Basophils % Metamyelocytes % Myelocytes % Promyelocytes % Other Cells % Nucleated RBC % Absolute Neutrophils Absolute Lymphocytes Absolute Monocytes Absolute Eosinophils Absolute Basophils RBC Morphology Polychromasia Hypochromasia Poikilocytosis Basophilic Stippling Anisocytosis Microcytosis Macrocytosis Spherocytes Tear Drop Cells Ovalocytes Stomatocytes Dial-[place] Bodies [place] Cells/Echinocytes Acanthocytes (Spur) Schistocytes Sodium Potassium Chloride Carbon Dioxide Anion Gap BUN Creatinine Estimated GFR/1.73 m2 Glucose Calcium Magnesium Total Bilirubin AST ALT Alkaline Phosphatase Creatine Kinase Total Protein Albumin Urine Color Yellow Urine Clarity Clear Urine pH 5.5 Ur Specific [place] 1.025 Urine Protein Negative Urine Ketones Negative Urine Blood Negative Urine Nitrite Negative Urine Bilirubin Negative Urine Urobilinogen 0.2 Ur Leukocyte Esterase Small H Urine RBC Negative Urine WBC 5-10 Ur Epithelial Cells Moderate Urine Crystals Negative Urine Bacteria Few Urine Casts Negative Urine Mucus Negative Ur Culture Indicated? No/Sq. Contamination Ur Random Creatinine Ur Random Sodium Urine Glucose Negative Patient ABO/Rh A Positive Antibody Screen NEGATIVE Antigen Identification K Antigen - NEGATIVE Crossmatch See Detail 11/06/21 11/07/21 11/07/21 19:30 05:35 06:40 WBC RBC Hgb Hct MCV MCH MCHC RDW Plt Count MPV Immature Gran % Neutrophils % Band Neutrophils % Lymphocytes % Atypical Lymphs % Monocytes % Eosinophils % Basophils % Metamyelocytes % Myelocytes % Promyelocytes % Other Cells % Nucleated RBC % Absolute Neutrophils Absolute Lymphocytes Absolute Monocytes Absolute Eosinophils Absolute Basophils RBC Morphology Polychromasia Hypochromasia Poikilocytosis Basophilic Stippling Anisocytosis Microcytosis Macrocytosis Spherocytes Tear Drop Cells Ovalocytes Stomatocytes Dial-[place] Bodies [place] Cells/Echinocytes Acanthocytes (Spur) Schistocytes Sodium Cancelled Potassium Cancelled Chloride Cancelled Carbon Dioxide Cancelled Anion Gap Cancelled BUN Cancelled Creatinine Cancelled Estimated GFR/1.73 m2 Cancelled Glucose Cancelled Calcium Cancelled Magnesium 1.8 Total Bilirubin AST ALT Alkaline Phosphatase Creatine Kinase 70 Total Protein Albumin Urine Color Urine Clarity Urine pH Ur Specific [place] Urine Protein Urine Ketones Urine Blood Urine Nitrite Urine Bilirubin Urine Urobilinogen Ur Leukocyte Esterase Urine RBC Urine WBC Ur Epithelial Cells Urine Crystals Urine Bacteria Urine Casts Urine Mucus Ur Culture Indicated? Ur Random Creatinine 92.01 Ur Random Sodium 3 Urine Glucose Patient ABO/Rh Antibody Screen Antigen Identification Crossmatch 11/07/21 11/07/21 11/07/21 06:40 06:40 07:50 WBC Cancelled 4.03 L RBC Cancelled 2.23 L Hgb Cancelled 6.4 L* Hct Cancelled 19.6 L* MCV Cancelled 87.9 MCH Cancelled 28.7 MCHC Cancelled 32.7 RDW Cancelled 15.1 H Plt Count Cancelled 82 L MPV Cancelled 9.5 Immature Gran % Cancelled 0.2 Neutrophils % Cancelled 61.2 Band Neutrophils % Cancelled Lymphocytes % Cancelled 28.0 Atypical Lymphs % Cancelled Monocytes % Cancelled 7.9 Eosinophils % Cancelled 2.2 Basophils % Cancelled 0.5 Metamyelocytes % Cancelled Myelocytes % Cancelled Promyelocytes % Cancelled Other Cells % Cancelled Nucleated RBC % Cancelled 0 Absolute Neutrophils Cancelled 2.47 Absolute Lymphocytes Cancelled 1.13 L Absolute Monocytes Cancelled 0.32 Absolute Eosinophils Cancelled 0.09 Absolute Basophils Cancelled 0.02 RBC Morphology Cancelled See Below Polychromasia Cancelled Hypochromasia Cancelled Poikilocytosis Cancelled Basophilic Stippling Cancelled Anisocytosis Cancelled 1+ Microcytosis Cancelled Macrocytosis Cancelled 1+ Spherocytes Cancelled Tear Drop Cells Cancelled Ovalocytes Cancelled Stomatocytes Cancelled Dial-[place] Bodies Cancelled [place] Cells/Echinocytes Cancelled Acanthocytes (Spur) Cancelled Schistocytes Cancelled Sodium 141 Potassium 4.8 Chloride 112 H Carbon Dioxide 19.8 L Anion Gap 9.2 BUN 39 H Creatinine 2.9 H Estimated GFR/1.73 m2 15.42 Glucose 103 Calcium 8.4 L Magnesium Total Bilirubin 1.3 H AST 17 ALT 9 L Alkaline Phosphatase 53 Creatine Kinase Total Protein 4.6 L Albumin 2.3 L Urine Color Urine Clarity Urine pH Ur Specific [place] Urine Protein Urine Ketones Urine Blood Urine Nitrite Urine Bilirubin Urine Urobilinogen Ur Leukocyte Esterase Urine RBC Urine WBC Ur Epithelial Cells Urine Crystals Urine Bacteria Urine Casts Urine Mucus Ur Culture Indicated? Ur Random Creatinine Ur Random Sodium Urine Glucose Patient ABO/Rh Antibody Screen Antigen Identification Crossmatch
--- NOTE | 2021-11-07 11:20 | CHAPLAIN ---
Annamarie was resting in bed when I visited, and she is hoping to be discharged today. She has some bleeding around her ostomy. She said this isn't my first rodeo with this issue, and that she probably waited too long before coming to the ED. She expects her will pick her up. Her doesn't cook, so he is looking forward to Annamarie getting home as well, Annamarie said. He can fix himself cereal, but that's about it.
--- NOTE | 2021-11-07 11:55 | PDOC.CMPRO ---
- If Service Date Differs Date of service: 11/07/21 Time of Service: 11:55 Care Management Progress Note S/O:Annamarie was sitting up in bed when CM met with her. She was smiling and agreeable to conversation. Annamarie shared that she is feeling better and has been told she will likely be discharged home tomorrow. This morning her H&H dropped from 24.4/8.0 to 19.6/6.4 and she received another unit of RBCs. Annamarie does not currently receive any services at home and denied the need for any at this time. She stated that her is wonderful and helps her with whatever she needs. She jokingly mentioned that he does not cook however and that he is anxious to have her back home. A: Annamarie is an 86 year old woman admitted on 11/04/21 with GI Bleeding P:Annamarie will return home when ready per MD. She will follow up with her PCP and plan of care as prescribed. She will transport via private vehicle with family. CM will continue to provide support to Annamarie and assess for discharge planning concerns.
--- NOTE | 2021-11-07 12:38 | PHA.REVIEW ---
Pharmacy Admission Review - Admission Clinical Review (Last Updated 11/06/21 @ 16:40 by Trish Morillo MD) Acute kidney injury superimposed on chronic kidney disease (Acute) Pacemaker (Acute) Elevated serum creatinine (Acute) Hyperkalemia (Acute) Chronic pain in left foot (Acute) Hypercholesterolemia (Acute) 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 (Acute) Anemia due to GI blood loss (Acute) No Known Allergies Allergy (Unverified 11/04/21 16:31) Resuscitation Status Full Code Height 4 ft 11 in Weight 77 kg - Renal Dosing Renal Dosing: BUN 39 mg/dL (7-18) H 11/07/21 06:40 Creatinine 2.9 mg/dL (0.55-1.02) H 11/07/21 06:40 Medications needing adjustments: Intervened (SCr: 2.9, CrCl~13.4mL/min (using adjusted body weight).) List of meds needing interventions: Gabapentin renally dosed (300mg/day). - Anticoagulation Anticoagulation: Hgb 6.4 g/dL (11.2-15.7) L* 11/07/21 07:50 Hct 19.6 % (36.0-46.0) L* 11/07/21 07:50 Plt Count 82 10^3/uL (130-400) L 11/07/21 07:50 INR 1.1 (0.9-1.1) 11/04/21 16:20 Creatinine 2.9 mg/dL (0.55-1.02) H 11/07/21 06:40 DVT Prophylaxis: N/A (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.) - Opiate Usage Evaluate Pain Scale/Pains Meds: N/A (Morphine PRN only) - Relevant Labs Sodium 141 mmol/L (136-145) 11/07/21 06:40 Potassium 4.8 mmol/L (3.5-5.1) 11/07/21 06:40 Chloride 112 mmol/L (98-107) H 11/07/21 06:40 Magnesium 1.8 mg/dL (1.8-2.4) 11/07/21 06:40 Electrolytes, C-Reactive P, ESR: Reviewed - DM Control DM Control: Glucose 103 mg/dL (74-106) 11/07/21 06:40 Insulin Dosing: N/A - Heart Failure/DC Heart Failure/DC: Troponin I < 0.05 ng/mL (<0.06) 11/04/21 19:00 EF%, WILLIAM's, B-Blockers, Diuretics: N/A - BP Control BP Control: Blood Pressure 117/81 Blood Pressure 117/81 Blood Pressure 124/67 If elevated: N/A - Qtc Review If Elevated: Reviewed (QTc 472 on admission.) - IV to PO Switch IV Medications: Reviewed - Home Meds Home Med List reviewed: Reviewed Relevent Home Meds Not ordered & why?: Metoprolol succinate 100mg QPM - not ordered, blood pressure has been low this admission. - Current meds Current Medication Order Review: Reviewed - Comments Comments/Follow Ups: Continue to monitor H&H, potassium, blood pressure, vitals, labs and for medication changes (avoid any QT prolonging medications and watch for any nephrotoxic/renally dosed medications).
[2021-11-07] MEDS: IRON SUCROSE COMPLEX 200 MG in Normal Saline 100 ML 400 MG IVPB (13:31)
[2021-11-07 16:36] LABS: Erythropoietin 183 mIU/mL (2.6 - 18.5)
--- NOTE | 2021-11-07 17:40 | PGE_ITS ---
Date of Service Date of service: 11/07/21 Time of Service: 12:30 Assessment and Plan Assessment and plan (1) Acute kidney injury superimposed on chronic kidney disease: Status: Acute Assessment and plan: FENA 0.1%, c/w prerenal ABBIE. Continue IVF, transfusing blood today. Recheck labs in am. Abstain from NSAIDS (It is ok to use tylenol in cirrhotics for a maximum daily dose of 2000 mg/day, if pain control becomes an issue). Subjective Subjective Interval history since last seen: Ms Bridges states she feels well. Denies dizziness, chest pain, shortness of breath, nausea. No bleeding. Receiving 1 unit pRBCs today. Exam Narrative Exam Narrative: General: Very pleasant elderly female, A&Ox3, laying comfortably flat in bed on room air, HEENT: EOMI, MMM Cardiovascular: RRR, no m/r/g Lungs: CTAB Gastrointestinal: soft, ileostomy site without bleeding currently, brown output in ostomy Extremities: no edema BLE's Objective Last Vital Signs Temp 36.4 C L 11/07/21 15:50 Pulse 70 11/07/21 15:50 Resp 17 11/07/21 15:50 BP 149/72 H 11/07/21 15:50 Pulse Ox 95 11/07/21 15:50 Laboratory Results - last 24 hr 11/04/21 11/04/21 11/06/21 16:50 19:50 19:30 WBC RBC Hgb Hct MCV MCH MCHC RDW Plt Count MPV Immature Gran % Neutrophils % Band Neutrophils % Lymphocytes % Atypical Lymphs % Monocytes % Eosinophils % Basophils % Metamyelocytes % Myelocytes % Promyelocytes % Other Cells % Nucleated RBC % Absolute Neutrophils Absolute Lymphocytes Absolute Monocytes Absolute Eosinophils Absolute Basophils RBC Morphology Polychromasia Hypochromasia Poikilocytosis Basophilic Stippling Anisocytosis Microcytosis Macrocytosis Spherocytes Tear Drop Cells Ovalocytes Stomatocytes Dial-[place] Bodies Kimi Cells/Echinocytes Acanthocytes (Spur) Schistocytes Sodium Potassium Chloride Carbon Dioxide Anion Gap BUN Creatinine Estimated GFR/1.73 m2 Glucose Calcium Magnesium Erythropoietin 183 H Total Bilirubin AST ALT Alkaline Phosphatase Creatine Kinase Total Protein Albumin Urine Color Yellow Urine Clarity Clear Urine pH 5.5 Ur Specific [place] 1.025 Urine Protein Negative Urine Ketones Negative Urine Blood Negative Urine Nitrite Negative Urine Bilirubin Negative Urine Urobilinogen 0.2 Ur Leukocyte Esterase Small H Urine RBC Negative Urine WBC 5-10 Ur Epithelial Cells Moderate Urine Crystals Negative Urine Bacteria Few Urine Casts Negative Urine Mucus Negative Ur Culture Indicated? No/Sq. Contamination Ur Random Creatinine Ur Random Sodium Urine Glucose Negative Patient ABO/Rh A Positive Antibody Screen NEGATIVE Antigen Identification K Antigen - NEGATIVE Crossmatch See Detail 11/06/21 11/07/21 11/07/21 19:30 05:35 06:40 WBC RBC Hgb Hct MCV MCH MCHC RDW Plt Count MPV Immature Gran % Neutrophils % Band Neutrophils % Lymphocytes % Atypical Lymphs % Monocytes % Eosinophils % Basophils % Metamyelocytes % Myelocytes % Promyelocytes % Other Cells % Nucleated RBC % Absolute Neutrophils Absolute Lymphocytes Absolute Monocytes Absolute Eosinophils Absolute Basophils RBC Morphology Polychromasia Hypochromasia Poikilocytosis Basophilic Stippling Anisocytosis Microcytosis Macrocytosis Spherocytes Tear Drop Cells Ovalocytes Stomatocytes Dial-[place] Bodies Kimi Cells/Echinocytes Acanthocytes (Spur) Schistocytes Sodium Cancelled Potassium Cancelled Chloride Cancelled Carbon Dioxide Cancelled Anion Gap Cancelled BUN Cancelled Creatinine Cancelled Estimated GFR/1.73 m2 Cancelled Glucose Cancelled Calcium Cancelled Magnesium 1.8 Erythropoietin Total Bilirubin AST ALT Alkaline Phosphatase Creatine Kinase 70 Total Protein Albumin Urine Color Urine Clarity Urine pH Ur Specific [place] Urine Protein Urine Ketones Urine Blood Urine Nitrite Urine Bilirubin Urine Urobilinogen Ur Leukocyte Esterase Urine RBC Urine WBC Ur Epithelial Cells Urine Crystals Urine Bacteria Urine Casts Urine Mucus Ur Culture Indicated? Ur Random Creatinine 92.01 Ur Random Sodium 3 Urine Glucose Patient ABO/Rh Antibody Screen Antigen Identification Crossmatch 11/07/21 11/07/21 11/07/21 06:40 06:40 07:50 WBC Cancelled 4.03 L RBC Cancelled 2.23 L Hgb Cancelled 6.4 L* Hct Cancelled 19.6 L* MCV Cancelled 87.9 MCH Cancelled 28.7 MCHC Cancelled 32.7 RDW Cancelled 15.1 H Plt Count Cancelled 82 L MPV Cancelled 9.5 Immature Gran % Cancelled 0.2 Neutrophils % Cancelled 61.2 Band Neutrophils % Cancelled Lymphocytes % Cancelled 28.0 Atypical Lymphs % Cancelled Monocytes % Cancelled 7.9 Eosinophils % Cancelled 2.2 Basophils % Cancelled 0.5 Metamyelocytes % Cancelled Myelocytes % Cancelled Promyelocytes % Cancelled Other Cells % Cancelled Nucleated RBC % Cancelled 0 Absolute Neutrophils Cancelled 2.47 Absolute Lymphocytes Cancelled 1.13 L Absolute Monocytes Cancelled 0.32 Absolute Eosinophils Cancelled 0.09 Absolute Basophils Cancelled 0.02 RBC Morphology Cancelled See Below Polychromasia Cancelled Hypochromasia Cancelled Poikilocytosis Cancelled Basophilic Stippling Cancelled Anisocytosis Cancelled 1+ Microcytosis Cancelled Macrocytosis Cancelled 1+ Spherocytes Cancelled Tear Drop Cells Cancelled Ovalocytes Cancelled Stomatocytes Cancelled Dial-[place] Bodies Cancelled [place] Cells/Echinocytes Cancelled Acanthocytes (Spur) Cancelled Schistocytes Cancelled Sodium 141 Potassium 4.8 Chloride 112 H Carbon Dioxide 19.8 L Anion Gap 9.2 BUN 39 H Creatinine 2.9 H Estimated GFR/1.73 m2 15.42 Glucose 103 Calcium 8.4 L Magnesium Erythropoietin Total Bilirubin 1.3 H AST 17 ALT 9 L Alkaline Phosphatase 53 Creatine Kinase Total Protein 4.6 L Albumin 2.3 L Urine Color Urine Clarity Urine pH Ur Specific [place] Urine Protein Urine Ketones Urine Blood Urine Nitrite Urine Bilirubin Urine Urobilinogen Ur Leukocyte Esterase Urine RBC Urine WBC Ur Epithelial Cells Urine Crystals Urine Bacteria Urine Casts Urine Mucus Ur Culture Indicated? Ur Random Creatinine Ur Random Sodium Urine Glucose Patient ABO/Rh Antibody Screen Antigen Identification Crossmatch
[2021-11-08 07:05] LABS: HCT 23.1 % (36.0-46.0); HGB 7.5 g/dL (11.2-15.7); MCH 28.6 pg (27.0-33.0); MCHC 32.5 % (32.0-36.0); MCV 88.2 fL (80-95); MPV 9.2 fL (8.0-11.0); Platelet Count 91 10^3/uL (130-400); RBC 2.62 10^6/uL (3.93-5.22); RDW 15.2 % (11.7-14.6); RDW-SD 47.7 fL; WBC 3.76 10^3/uL (4.4-10.8)
[2021-11-08 07:19] LABS: Anion Gap 7.8 mmol/L (3-11); BUN 32 mg/dL (7-18); CO2 22.2 mmol/L (21.0-32.0); CREATININE 2.5 mg/dL (0.55-1.02); Calcium 8.3 mg/dL (8.5-10.1); Chloride 111 mmol/L (98-107); Glucose 95 mg/dL (74-106); Magnesium 1.6 mg/dL (1.8-2.4); Potassium 4.5 mmol/L (3.5-5.1); Sodium 141 mmol/L (136-145)
[2021-11-08] MEDS: Pantoprazole 40 MG VIAL IVP (07:45)
[2021-11-08] MEDS: Gabapentin 100 MG CAP PO (07:45)
[2021-11-08] MEDS: MAGNESIUM SULFATE 2 GM/50 ML BAG IVPB (08:08)
[2021-11-08 09:30] VITALS: BP 135/77; PULSE 93; RESP 18; TEMP 36.9; O2SAT 98
--- NOTE | 2021-11-08 10:35 | W.PM.PROGNOT ---
Date of Service Date of service: 11/08/21 Time of Service: 10:35 Assessment and Plan Assessment and plan (1) Acute kidney injury superimposed on chronic kidney disease: Status: Acute (2) Elevated serum creatinine: Status: Acute (3) Hyperkalemia: Status: Acute (4) 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: Status: Acute Assessment and plan: She has not had any bleeding from her colostomy in 24 hours. She received 1 unit of blood Yesterday She is not iron deficient SHe small she should follow-up with myself or Dr. Carrington next week for repeat labs Subjective Subjective Interval history since last seen: Pt is doing well. no headaches. No CP or SOB. no productive cough. no dysuria. no leg pain or swelling. Patient is walking. She had no chest pain shortness of breath. She had no weakness or dizziness. She has no bleeding from her ostomy. She is tolerating regular diet. Her creatinine is improving and she is making urine. Exam Resp Effort & Inspection: normal respiratory effort and able to speak in complete sentences Auscultation: clear to auscultation bilaterally Cardio Rate: regular rate Rhythm: regular rhythm GI Inspection: normal to inspection Palpation: soft and nontender Auscultation: normal bowel sounds Other: Ago Miryam ostomy is pink healthy and patent. There is no signs of any recurrent Extrem General: no clubbing, cyanosis or edema Objective Last Vital Signs Temp 36.9 C 11/08/21 09:30 Pulse 93 H 11/08/21 09:30 Resp 18 11/08/21 09:30 BP 135/77 11/08/21 09:30 Pulse Ox 98 11/08/21 09:30 Laboratory Results - last 24 hr 11/04/21 11/04/21 11/08/21 16:50 19:50 06:00 WBC RBC Hgb Hct MCV MCH MCHC RDW Plt Count MPV Sodium 141 Potassium 4.5 Chloride 111 H Carbon Dioxide 22.2 Anion Gap 7.8 BUN 32 H Creatinine 2.5 H Estimated GFR/1.73 m2 18.30 Glucose 95 Calcium 8.3 L Magnesium 1.6 L Erythropoietin 183 H Crossmatch See Detail 11/08/21 06:00 WBC 3.76 L RBC 2.62 L Hgb 7.5 L Hct 23.1 L MCV 88.2 MCH 28.6 MCHC 32.5 RDW 15.2 H Plt Count 91 L MPV 9.2 Sodium Potassium Chloride Carbon Dioxide Anion Gap BUN Creatinine Estimated GFR/1.73 m2 Glucose Calcium Magnesium Erythropoietin Crossmatch
--- NOTE | 2021-11-08 12:02 | PDOC.CMDIS ---
- If Service Date Differs Date of service: 11/08/21 Time of Service: 12:02 LACE Index Scoring Tool - Questions: Length of Stay (in days): 4 - 6 Acuity (Admit via E.D.?): Yes Comorbidities: Any Tumor E.D. Visits: 1 - Answers: Total Score: 10 Risk of Readmission: High Risk Care Management Discharge Reason for Hospitalization: GI Bleeding, Anemia Discharge Plan: Annamarie will return home with no new services. She will follow up with her PCP and plan of care as prescribed and transport via private vehicle with family. Patient/Family Education Needs: Review discharge instructions including activity. medications, limitations, activity and discuss Ask Me Three.
== END 2021-11-08 12:16 | disposition home or self-care (01) | DRG 356 ==
LOC: ER 19:24 → MS 11-05 08:45
PROVIDERS: Internal Medicine; Physical Therapy Assistant; Surgery; Admitting Provider Surgery; Emergency Provider Registered Nurse Emergency; PCP Legal Medicine; Visit Provider Surgery
PROC: 0DJD8ZZ Inspection of Lower Intestinal Tract, Via Natural or Artificial Opening Endoscopic (ICD-10-PCS; CPT 45330; principal; 2021-11-05 13:15)
DX: K94.11 Enterostomy hemorrhage (principal); N17.0 Acute kidney failure with tubular necrosis; D62 Acute posthemorrhagic anemia; I48.0 Paroxysmal atrial fibrillation; E78.00 Pure hypercholesterolemia, unspecified; E87.5 Hyperkalemia; G89.29 Other chronic pain; M79.672 Pain in left foot; Z85.038 Personal history of other malignant neoplasm of large intestine; Z85.3 Personal history of malignant neoplasm of breast; I12.9 Hypertensive chronic kidney disease with stage 1 through stage 4 chronic kidney disease, or unspecified chronic kidney disease; N18.30 Chronic kidney disease, stage 3 unspecified; K74.69 Other cirrhosis of liver; Z95.0 Presence of cardiac pacemaker; I73.9 Peripheral vascular disease, unspecified; G57.82 Other specified mononeuropathies of left lower limb
CPT/HCPCS: 44386; 36415; 76770; 80048; 80053; 82550; 82668; 85027; 86850; 86900; 86901; 86920; 87635; 93005; 96374; 99221; 99231; 99232; 99238; 99285; 81003; 81015; 82378; 82565; 82728; 83540; 83550; 83735; 84300; 84443; 84484; 85014; 85018; 85025; 85045; 85610; 85730; 86902; 93010; 99222; J1756; J2001; P9016

== ENCOUNTER 2023-04-23 23:57 | Emergency (ER) | payer MEDICARE, BC, SELFPAY ==
--- NOTE | 2023-04-23 23:45 | RT.EKG_ITS ---
APPROVED REPORT Exam: Resting ECG Reason for Exam: fall, light headed, dizzy Patient Location: E HR:81 bpm ECG Measurements Heart Rate 81 AXIS MA 173 P 55 QRSd 120 QRS -56 QT 404 T 66 QTc 470 Conclusion Sinus rhythm...normal P axis, V-rate 60- 99 Incomplete RBBB and LAFB...axis(240,-40), S>R II III aVF Probable left ventricular hypertrophy...(RaVL+SV3)xQRSd >300 ST elevation, consider inferior injury...ST >0.08mV, II III aVF Physician: no stemi, unchanged from prior on 11/04/21
[2023-04-23 23:56] VITALS: BP 113/78; PULSE 86; RESP 16; TEMP 36.3; O2SAT 95
[2023-04-24] VITALS (25 sets, daily range): BP systolic 94–157; BP diastolic 56–128; PULSE 70–86; RESP 14–28; O2SAT 97–99
--- NOTE | 2023-04-24 00:15 | ED.GENADUL_ITS ---
Discharge Plan Disposition Patient Disposition: Home Discharge Details Chief Complaint: Fall/Non TraumaCriteria Clinical Impression: Abn react-external stoma Primary Care Provider: Dede Miller ED Provider: Stephen Askew Home Meds and New Rx's Prescriptions: No Action gabapentin 600 MG tablet 600 mg PO BID naproxen sodium [Aleve] 220 mg Tablet 220 mg PO BID metoprolol succinate 100 MG tablet extended release 24 hr 100 mg PO QPM Discharge Instructions Additional Instructions: The bleeding area on your stoma has stopped/resolved. Please avoid any abrasions or trauma to this area. Your blood levels have returned stable. If you notice any worsening of your symptoms, or any new symptoms such as vomiting, diarrhea, fever, chills, shortness of breath, chest pain, numbness, weakness, or fainting , please return immediately to the emergency department for reevaluation. Please follow up with your primary care provider as soon as possible for reassessment and reevaluation. As always, it was a pleasure participating in your medical care today. Referrals: Dede Miller [Primary Care Provider] - Medical Decision Making 87-year-old female with a past medical history of previous GI bleed, chronic kidney disease, previous colon cancer for which she has had colectomy and ostomy, hypertension, Osborne, paroxysmal A-fib not on any blood thinners, who [place] [facility] [place], who presents today for evaluation after a fall. Patient states that she was discharged at around 10:30 PM, she is not able to provide any specifics in regards to what was done there. She states that when she got home and tried to get out of the car she felt lightheaded and fell and landed on her right flank. She was down for about 20 to 30 minutes, when EMS eventually called. She was then brought to the ER for further evaluation. She admits to finding continued blood in her colostomy. She denies any significant abdominal pain aside for some mild achiness on the right after the fall. She denies hitting her head. She denies any chest pain. No other complaints at this time. No other modifying factors. On initial assessment there was concern for GI bleed as the patient did have a bout 100 cc of bloody fluid in her ostomy site. However I did contact [facility] with the patient was just discharged from. 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 She went to the ER last night because of the bleeding area was cauterized and the bleeding resolved. However when she went home and fell it pushed off the scab which eventually caused the bleeding to recur. On repeat exam we are able to remove her ostomy bag completely clean the entire area there was evidence of a clear ulceration. The Protonix and famotidine were stopped. We will still get a CT scan to evaluate for any evidence of trauma. The area was injected with lidocaine with epinephrine, this seemed to stop the bleeding. Area was then cauterized, and subsequently dermabonded. Patient tolerated all of this well, bleeding is stopped and she feels much better. We will follow-up on images and continue gentle hydration. 4:12 AM Patient is doing notably well. Bleeding has not resumed. Hemoglobin is stable and actually improved. CT scan negative for acute traumatic process. La boratory work-up demonstrates stability at her normal baseline. We have given continued slow rehydration while she is here. She shows no dizziness hypotension or tachycardia. Patient appears well and is stable for discharge. We will continue to watch her till 6 AM when her wakes up and we will allow her to go home at that point. Otherwise she looks clinically well with no indication for admission at this time. Discussed red flags for which to return. I have extensively reviewed the treatment plan and discharge instructions with the patient. I have addressed all patient concerns at this time. The patient was made aware of what symptoms to monitor for that would warrant a return to the emergency department. Discussed the plan with the patient, they demonstrate verbal understanding and agreement with our assessment and plan at this time. The documentation in this chart was dictated using [employer] dictation software. Please excuse any dictation errors. FINDINGS: Lungs: Unremarkable. No consolidation. No masses. Pleural spaces: Unremarkable. No pneumothorax. No pleural effusion. Heart: Coronary artery calcification. No cardiomegaly. No pericardial effusion. Lymph nodes: Unremarkable. No enlarged lymph nodes. Vasculature: Unremarkable. No aortic aneurysm. Bones/joints: Unremarkable. No acute fracture. Soft tissues: Unremarkable. IMPRESSION: No acute findings. FINDINGS: Liver: Hepatic cirrhosis. Gallbladder and bile ducts: Status post cholecystectomy. Pancreas: 10 mm cystic lesion of the pancreas. Spleen: Normal. No splenomegaly. Adrenal glands: Normal. No mass. Kidneys and ureters: Simple renal cyst, no further follow-up required. No hydronephrosis. Stomach and bowel: Colonic diverticula. Appendix: No evidence of appendicitis. Intraperitoneal space: Unremarkable. No free air. No significant fluid collection. Vasculature: Unremarkable. No abdominal aortic aneurysm. Lymph nodes: Unremarkable. No enlarged lymph nodes. Urinary bladder: Unremarkable as visualized. Reproductive: Status post hysterectomy. Partially fat containing 4 cm right adnexal lesion, could indicate ovarian dermoid with other etiology not excluded. Bones/joints: Multilevel degenerative disk disease and facet arthropathy with neuroforaminal and canal stenosis. Anterolisthesis of L3 on L4 and L4 on L5. No acute fracture. Soft tissues: Right mid abdominal ostomy with bowel containing peristomal hernia. IMPRESSION: No acute finding. Thank you for allowing us to participate in the care of your patient. Dictated and Authenticated by: Shaquille Barnes MD 04/24/2023 3:56 AM Eastern Time ([place] & [place]) HPI General Date/Time Provider Initiated Documentation: 04/24/23 00:00 . HPI Narrative: 87-year-old female with a past medical history of previous GI bleed, chronic kidney disease, previous colon cancer for which she has had colectomy and ostomy, hypertension, Osborne, paroxysmal A-fib not on any blood thinners, who [place] [facility] [place], who presents today for evaluation after a fall. Patient states that she was discharged at around 10:30 PM, she is not able to provide any specifics in regards to what was done there. She states that when she got home and tried to get out of the car she felt lightheaded and fell and landed on her right flank. She was down for about 20 to 30 minutes, when EMS eventually called. She was then brought to the ER for further evaluation. She admits to finding continued blood in her colostomy. She denies any significant abdominal pain aside for some mild achiness on the right after the fall. She denies hitting her head. She denies any chest pain. No other complaints at this time. No other modifying factors. Related Data Home Medications Medication Instructions Recorded Confirmed gabapentin 600 mg tablet 600 mg PO BID 09/16/16 04/24/23 metoprolol succinate 100 mg 100 mg PO QPM 03/13/18 04/24/23 tablet,extended release 24 hr naproxen sodium 220 mg tablet 220 mg PO BID 11/04/21 04/24/23 (Aleve) Allergies Allergy/AdvReac Type Severity Reaction Status Date / Time No Known Allergies Allergy Unverified 04/24/23 00:09 General Stated Complaint: Fall/Non TraumaCriteria LETI: 3 Review of Systems All systems reviewed & are unremarkable except as noted in HPI and below PFSH All Active Problems (Updated 04/24/23 @ 04:14 by Stephen Askew DO) Abn react-external stoma (Acute) Acute kidney injury superimposed on chronic kidney disease (Acute) Pacemaker (Acute) Elevated serum creatinine (Acute) Hyperkalemia (Acute) Chronic pain in left foot (Acute) Colon cancer (Chronic) Hypercholesterolemia (Acute) 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 (Acute) Discharge planning issues (Acute) Anemia due to GI blood loss (Acute) Medical History Breast cancer Remains RADHA Cirrhosis CKD (chronic kidney disease), stage III H/O malignant neoplasm of colon History of breast cancer Hypertension Ischemic neuropathy of foot OSBORNE (nonalcoholic steatohepatitis) PAD (peripheral artery disease) Paroxysmal atrial fibrillation Surgical History 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 [facility] [place] Colostomy Hemicolectomy (06/30/13) Right, due to colonic perforation from adenocarcinoma of transverse colon Social History Smoking/Tobacco Use Status: Never Smoking risk assessment performed?: Yes Alcohol Intake: never Drug use: Never Do you feel safe in your relationship?: Yes Exam Narrative Exam Narrative: 1.Const: Well-nourished, Well-developed, appearing stated age 2.Eyes: PERRL, no conjunctival injection, and symmetrical lids. 3.ENT: Atraumatic external nose and ears. Moist MM. Neck: Symmetric, trachea midline, No thyromegaly. 4.CVS: +S1/S2, No murmurs or gallops. Peripheral pulses 2+ and equal in all extremities. Brisk capillary refill in all extremities. 5.RESP: Unlabored respiratory effort. Clear to auscultation bilaterally. No wheezes rales or rhonchi 6.GI: Soft, Nontender/Nondistended, No hepatosplenomegaly. No guarding or rebound. Blood is present in the ostomy bag. No active bleeding from the stoma itself. There seems to be a very small ulcerated lesion on the 6 o'clock position for the stoma which is a source of the bleeding. No active GI bleeding. No pain or tenderness. 7.MSK: Normocephalic/Atraumatic, Extremities w/o deformity or ttp No cyanosis or clubbing, Normal movement of all extremities. 8.Skin: Warm, Dry. No rashes or lesions. 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 Sensation grossly intact, no focal neurologic deficits. 10.Psych: (AAO) x3. Appropriate mood and affect Course Vital Signs Vital signs: Vital Signs Temperature 36.3 C L 04/23/23 23:56 Pulse 86 04/23/23 23:56 Respiratory Rate 16 04/23/23 23:56 Blood Pressure 113/78 04/23/23 23:56 Pulse Oximetry 95 04/23/23 23:56 Temperature 36.3 C L 04/23/23 23:56 Temperature Source Tympanic 04/23/23 23:56 Pulse 86 04/23/23 23:56 Respiratory Rate 16 04/23/23 23:56 Respiratory Effort Normal 04/24/23 00:04 Blood Pressure 113/78 04/23/23 23:56 Pulse Oximetry 95 04/23/23 23:56 Oxygen Delivery Method Room Air 04/23/23 23:56 Oxygen Flow Rate 0 04/23/23 23:56 Pain Level 2 04/23/23 23:56
[2023-04-24 00:49] LABS: Absolute Basophil Count 0.07 10^3/uL (0.0-0.2); Absolute Eosinophil Count 0.01 10^3/uL (0.0-0.7); Absolute Lymphocyte Count 1.59 10^3/uL (1.2-3.4); Absolute Monocyte Count 0.65 10^3/uL (0.1-0.8); Absolute Neutrophil Count 12.41 10^3/uL (1.2-6.7); Basophils % 0.5; Eosinophils % 0.1; Immature Grans % 0.7; Lymphocytes % 10.7; MCH 28.6 pg (27.0-33.0); MCHC 32.4 % (32.0-36.0); MCV 88 fL (80-95); MPV 9.4 fL (8.0-11.0); Monocytes % 4.4; Neutrophils % 83.6; Platelet Count 160 10^3/uL (130-400); RBC 3.85 10^6/uL (3.93-5.22); RDW 13.8 % (11.7-14.6); RDW-SD 44.3 fL; WBC 14.85 10^3/uL (4.4-10.8)
[2023-04-24] MEDS: Famotidine 20 MG/2 ML VIAL IVP (00:54)
[2023-04-24] MEDS: Pantoprazole 40 MG VIAL IVP (00:55)
[2023-04-24] MEDS: PANTOPRAZOLE 80 MG in Normal Saline 100 ML 10 MG IV (00:55)
[2023-04-24 01:09] LABS: INR 1.1 (0.9-1.1); Prothrombin Time 10.9 sec (9.3-11.0)
[2023-04-24 01:11] LABS: ALT 20 U/L (14-59); AST 21 U/L (15-37); Albumin 3.5 g/dL (3.4-5.0); Alkaline Phosphatase 63 U/L (46-116); Anion Gap 10.7 mmol/L (3-11); BUN 33 mg/dL (7-18); Bilirubin, Total 1.5 mg/dL (0.2-1.0); CO2 21.3 mmol/L (21.0-32.0); CREATININE 2.6 mg/dL (0.55-1.02); Calcium 9.8 mg/dL (8.5-10.1); Chloride 106 mmol/L (98-107); Estimated GFR 17.43 (mL/min/1.73m2); Glucose 211 mg/dL (74-106); Sodium 138 mmol/L (136-145)
[2023-04-24 01:12] LABS: Troponin I < 50 ng/L (<or=60)
--- NOTE | 2023-04-24 01:15 | DI.CT_ITS ---
Exam(s) CT CHEST/ABD/PEL WO EXAM: CT CHEST/ABD/PEL WO CLINICAL HISTORY: fall, right flank pain. TECHNIQUE: Imaging Protocol: Axial computed tomography images with coronal and sagittal reformatted images were created and reviewed CONTRAST MATERIAL: Intravenous: none Oral: None COMPARISON: No exams were available for comparison FINDINGS: CHEST: LUNGS: No infiltrates nor lung contusion. No pleural effusions. No pneumothorax. No significant no dules in either lung field. Trachea and mainstem bronchi unremarkable.. MEDIASTINUM: No evidence of sternal fracture or mediastinal hematoma. No hilar nor mediastinal adeno aaliyah. CARDIAC: Pacemaker wires. Heart size normal. Small pericardial effusion measuring up to 7 mm thick at the apex level. Caliber thoracic aorta within normal limits. OSSEOUS: T12 superior endplate concavity consistent with mild compression fracture, age indeterminate . Probably not acute. ABDOMEN: There is no ascites. No evidence of bowel wall nor mesenteric hematoma. LIVER: Cirrhotic appearing liver. In the right hepatic lobe there is a subcapsular area of hypodensi ty measuring approximately 2 x 1.5 cm. Cannot exclude the possibility of laceration of the liver in trauma setting. There is, however, no subcapsular fluid nor perihepatic fluid at this level. Diffic ult to assess without IV contrast. GALLBLADDER/BILIARY: Gallbladder is surgically absent. CBD diameter is commensurate with post cholec ystectomy status and advanced age. PANCREAS: No evidence of obvious pancreatic mass nor dilatation of the pancreatic duct. SPLEEN: Unremarkable. No laceration nor perisplenic fluid. Normal size. ADRENALS: There are no significant adrenal masses. KIDNEYS: No evidence of renal laceration or subcapsular hematoma. Cysts are noted in the left kidney , the largest of these benign cysts measuring 6 x 6 cm. Do not require further workup. Solitary sma ll sub cm cyst in the opposite-right kidney. No solid renal masses. No calculi. No hydronephrosis. . ABDOMINAL AORTA: Calcified but not enlarged. No abnormal fluid around the aorta. Aortoiliac segment s appear intact. LYMPH NODES: There is no retroperitoneal nor para-aortic adenopathy. ABDOMINAL WALL/GI: There is a right sided ostomy prominent hernia sac this level containing multiple nonobstructed small bowel loops which do not appear dilated nor edematous. The hernia sac measures a pproximately 10 cm wide x 12 cm cephalocaudal, and the hernia sac neck is approximately 5 cm wide. No evidence of bowel obstruction. PELVIS: LYMPH NODES: There is no intrapelvic nor inguinal adenopathy. GI: No evidence of appendicitis.There are few sigmoid diverticuli but no evidence of acute diverticul itis. URINARY BLADDER: Intact. Not distended. Appears unremarkable. REPRODUCTIVE: Uterus atrophic or surgically absent. There is around 3.8 by 3.8 cm non cystic mass in the right-side of the pelvis, possibly ovarian origin. No masses in left side of the pelvis. OSSEOUS: Evidence of previous decompression surgery with absence of posterior osseous elements of the lower 3 levels. There is also anterolisthesis L3 upon L4 and L4 upon L5. Disc space narrowing at t hese levels also noted. There is Schmorl's node invagination in the superior endplate of L2. IMPRESSION: 1. No acute intrathoracic findings. T12 mild compression fracture, probably not acute. 2. Subtle subcapsular hypodensity in the right hepatic lobe. Cannot exclude laceration in trauma set ting but this finding is difficult to assess on a noncontrast study. There is also no subcapsular fl uid adjacent to this. Liver appears cirrhotic. No perihepatic ascites. This finding can be further assessed with contrast infused study. No significant trauma evident in the spleen and kidneys. 3. There is a round right adnexal mass measuring 3.8 x 3.8 cm which is probably ovarian neoplasm. A ppears to contain some fat and therefore may be a dermoid. No calcification therein. Uterus is surg ically absent. No free fluid in the abdomen and pelvis. 4. Right-sided ostomy with large small bowel containing hernia at this level as described above. No bowel obstruction. 5. Other findings as above. First read by [facility]. Final report called by myself to ER physician 04/24/2023 9:30 a.m.. RADIATION DOSE DELIVERED: 1,078.41mGy.cm Total DLP DATA REPOSITORY: All CT scans at this facility are submitted to the National Radiology Data Registry (NRDR) Dose Index Registry (DIR) with the [employer] (A[employer]). RADIATION OPTIMIZATION: All CT scans at this facility use at least one of these dose optimization te chniques: automated exposure control; mA and/or kV adjustment per patient size (includes targeted exa ms where dose is matched to clinical indication); or iterative reconstruction.
--- NOTE | 2023-04-24 01:33 | NUR.NOTE ---
Ostomy bag removed and stoma cleaned, site cauterized by Dr. Askew, ostomy bag replaced after dermabond dried. :
[2023-04-24] MEDS: Normal Saline 1,000 ML 125 ML IV (01:48)
[2023-04-24] MEDS: Silver Nitrate Stick 1 EACH (01:49)
--- NOTE | 2023-04-24 03:58 | DI.VRAD_ITS ---
PROCEDURE INFORMATION: Exam: CT Chest Without Contrast; Diagnostic Exam date and time: 04/24/2023 1:35 AM Age: 87 years old Clinical indication: Injury or trauma; Blunt; Generalized; Other: Fall, right flank pain TECHNIQUE: Imaging protocol: Diagnostic computed tomography of the chest without contrast. Radiation optimization: All CT scans at this facility use at least one of these dose optimization techniques: automated exposure control; mA and/or kV adjustment per patient size (includes targeted exams where dose is matched to clinical indication); or iterative reconstruction. COMPARISON: US RENAL 11/06/2021 10:59 AM FINDINGS: Lungs: Unremarkable. No consolidation. No masses. Pleural spaces: Unremarkable. No pneumothorax. No pleural effusion. Heart: Coronary artery calcification. No cardiomegaly. No pericardial effusion. Lymph nodes: Unremarkable. No enlarged lymph nodes. Vasculature: Unremarkable. No aortic aneurysm. Bones/joints: Unremarkable. No acute fracture. Soft tissues: Unremarkable. IMPRESSION: No acute findings. PROCEDURE INFORMATION: Exam: CT Abdomen And Pelvis Without Contrast Exam date and time: 04/24/2023 1:35 AM Age: 87 years old Clinical indication: Injury or trauma; Blunt; Generalized; Other: Fall, right flank pain TECHNIQUE: Imaging protocol: Computed tomography of the abdomen and pelvis without contrast. Radiation optimization: All CT scans at this facility use at least one of these dose optimization techniques: automated exposure control; mA and/or kV adjustment per patient size (includes targeted exams where dose is matched to clinical indication); or iterative reconstruction. COMPARISON: RENAL 11/06/2021 10:59 AM FINDINGS: Liver: Hepatic cirrhosis. Gallbladder and bile ducts: Status post cholecystectomy. Pancreas: 10 mm cystic lesion of the pancreas. Spleen: Normal. No splenomegaly. Adrenal glands: Normal. No mass. Kidneys and ureters: Simple renal cyst, no further follow-up required. No hydronephrosis. Stomach and bowel: Colonic diverticula. Appendix: No evidence of appendicitis. Intraperitoneal space: Unremarkable. No free air. No significant fluid collection. Vasculature: Unremarkable. No abdominal aortic aneurysm. Lymph nodes: Unremarkable. No enlarged lymph nodes. Urinary bladder: Unremarkable as visualized. Reproductive: Status post hysterectomy. Partially fat containing 4 cm right adnexal lesion, could indicate ovarian dermoid with other etiology not excluded. Bones/joints: Multilevel degenerative disk disease and facet arthropathy with neuroforaminal and canal stenosis. Anterolisthesis of L3 on L4 and L4 on L5. No acute fracture. Soft tissues: Right mid abdominal ostomy with bowel containing peristomal hernia. IMPRESSION: No acute finding. Dictated and Authenticated by: Shaquille Barnes MD. Ordering:VERONICA Mitchell MD
== END 2023-04-24 05:36 | disposition home or self-care (01) ==
PROVIDERS: Emergency Provider Student in an Organized Health Care Education/Training Program; PCP Legal Medicine
DX: K94.09 Other complications of colostomy (principal); W19.XXXA Unspecified fall, initial encounter; N18.9 Chronic kidney disease, unspecified; Z85.038 Personal history of other malignant neoplasm of large intestine
CPT/HCPCS: 71250; 80053; 86850; 86900; 86901; 93005; 96361; 96365; 96375; 99284; 74176; 84484; 85025; 85610; 85730; 86870; 86902; 93010

== ENCOUNTER 2023-04-24 16:47 | Inpatient (IN) | payer MEDICARE, BC, SELFPAY ==
[2023-04-24] VITALS (31 sets, daily range): BP systolic 65–137; BP diastolic 26–74; PULSE 68–123; RESP 9–30; TEMP 36–37; O2SAT 92–100
[2023-04-24 18:12] LABS: Abs Immature Grans 0.25 10^3/uL (0.0-0.06); Absolute Monocyte Count 1.49 10^3/uL (0.1-0.8); Basophils % 0.2; HCT 27.4 % (36.0-46.0); Immature Grans % 1.3; Lymphocytes % 7.5; MCH 28.9 pg (27.0-33.0); MCHC 32.8 % (32.0-36.0); MCV 88 fL (80-95); MPV 9.2 fL (8.0-11.0); Monocytes % 7.6; Neutrophils % 83.4; Platelet Count 158 10^3/uL (130-400); RBC 3.11 10^6/uL (3.93-5.22); RDW 14.3 % (11.7-14.6); RDW-SD 45.5 fL; WBC 19.54 10^3/uL (4.4-10.8)
[2023-04-24 18:16] LABS: Absolute Basophil Count 0.04 10^3/uL (0.0-0.2); Absolute Lymphocyte Count 1.47 10^3/uL (1.2-3.4)
[2023-04-24] MEDS: Normal Saline 1,000 ML 1000 ML IV (18:20)
--- NOTE | 2023-04-24 19:39 | NUR.NOTE ---
Nursing Note: Evelyn RN emptied the stoma bag, 400mL of blood and stool emptied. Casie MANAGER LOCATION is aware of the look of the contents of the bag.
--- NOTE | 2023-04-24 20:22 | NUR.NOTE ---
Nursing Note:Per POCKET BUILDER instruction from surgeon, Ostomy bag removed and EMLA cream applied. Tlefa applied over the emla and ABD pad taped over telfa. Awaiting the general surgeon to arrive to treat area and bleeding.
[2023-04-24] MEDS: Lidocaine/Prilocaine Cream 5 GM TUBE 20 GM TP (20:24)
[2023-04-24 20:58] LABS: HCT 23.3 % (36.0-46.0); HGB 7.7 g/dL (11.2-15.7)
--- NOTE | 2023-04-24 21:13 | ED.GENADUL_ITS ---
Discharge Plan Disposition Patient Disposition: Admit to [facility] Condition: Fair Discharge Details Clinical Impression: 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 Admit Date/Time: 04/25/23 11:33 Admit Provider: Christina Rajan Attending Provider: Solitario Hdz Primary Care Provider: Dede Miller ED Provider: Casie Evangelista Discharge Data Discharge Date/Time-TO BE ENTERED AT DEPARTURE: 04/24/23 22:44 HPI <Casie Evangelista NP - Last Filed: 04/25/23 20:36> General Mode of arrival: ambulatory . Date/Time Provider Initiated Documentation: 04/24/23 17:31 . Limitations to Documentation: no limitations . Information obtained by: patient . HPI Narrative: Patient returns to the emergency department for evaluation of lightheadedness which has been ongoing all day. She has been bleeding from her ileostomy site. She was seen in the emergency department at [facility] last night and then again here last night the site was cauterized but since being discharged she continues to have bleeding. She is now having lightheadedness and reports that she did pass out. On arrival she has her ostomy bag with bright red?maroon liquid. 400 cc drained. Vital signs show tachycardia and systolic blood pressure in the 90s. Related Data Home Medications Medication Instructions Recorded Confirmed gabapentin 600 mg tablet 600 mg PO BID 09/16/16 06/18/23 metoprolol succinate 100 mg 100 mg PO QPM 03/13/18 06/18/23 tablet,extended release 24 hr magnesium 250 mg tablet 250 mg PO DAILY #20 tabs 06/04/23 06/18/23 cholecalciferol (vitamin D3) 125 125 mcg PO DAILY 06/11/23 06/18/23 mcg (5,000 unit) capsule Previous Rx's Medication Instructions Recorded magnesium 250 mg tablet 250 mg PO DAILY #20 tabs 06/04/23 Allergies Allergy/AdvReac Type Severity Reaction Status Date / Time No Known Allergies Allergy Unverified 06/18/23 09:50 General Stated Complaint: Dizzy/Sync LETI: 3 Review of Systems <Casie Evangelista NP - Last Filed: 04/25/23 20:36> All systems reviewed & are unremarkable except as noted in HPI and below Exam <Casie Evangelista NP - Last Filed: 04/25/23 20:36> Const General: cooperative, frail appearing and ill appearing chronically Nutritional Appearance: overweight Orientation: alert, awake and oriented x3 [facility] Head: normal to inspection, normocephalic and atraumatic Mouth: moist mucous membranes abnormal (Dry) Chest Chest: normal inspection of the chest Resp Effort & Inspection: normal respiratory effort Cardio Rate: tachycardic GI Inspection: obesity and other (Ostomy intact right side. Maroon liquid in ostomy bag) Palpation: soft Auscultation: normal bowel sounds Skin General skin exam: no rashes or lesions noted and pallor Neuro General: patient alert, patient awake and patient oriented x3 Course <Casie Evangelista NP - Last Filed: 04/25/23 20:36> Vital Signs Vital signs: Vital Signs Temperature 36.5 C 04/24/23 16:56 Pulse 68 04/24/23 16:56 Respiratory Rate 17 04/24/23 16:56 Blood Pressure 92/49 L 04/24/23 16:56 Pulse Oximetry 92 04/24/23 16:56 Temperature 36.5 C 04/24/23 16:56 Temperature Source Temporal Artery Scan 04/24/23 16:56 Pulse 100 H 04/24/23 20:16 Pulse 109 H 04/24/23 20:16 Respiratory Rate 17 04/24/23 20:16 Respiratory Effort Normal 04/24/23 18:55 Respiratory Depth Normal 04/24/23 18:55 Respiratory Pattern Normal 04/24/23 18:55 Blood Pressure 77/52 L 04/24/23 20:16 Blood Pressure Mean 58 04/24/23 20:16 Blood Pressure Position Sitting 04/24/23 16:56 Pulse Oximetry 98 04/24/23 20:20 Oxygen Delivery Method Room Air 04/24/23 16:56 Oxygen Flow Rate 0 04/24/23 16:56 Pain Level 0 04/24/23 16:56 Lab/Test Results Lab/Test Results: Laboratory Tests Range/Units 04/24/23 04/24/23 04/24/23 17:34 17:34 18:04 WBC (4.4-10.8) 10^3/uL 19.54 H RBC (3.93-5.22) 10^6/uL 3.11 L Hgb (11.2-15.7) g/dL 9.0 L D Hct (36.0-46.0) % 27.4 L MCV (80-95) fL 88 MCH (27.0-33.0) pg 28.9 MCHC (32.0-36.0) % 32.8 RDW (11.7-14.6) % 14.3 Plt Count (130-400) 10^3/uL 158 MPV (8.0-11.0) fL 9.2 Immature Gran % 1.3 Neutrophils % 83.4 Lymphocytes % 7.5 Monocytes % 7.6 Eosinophils % 0.0 Basophils % 0.2 Nucleated RBC % (0.0-0.3) % 0.0 Absolute Neutrophils (1.2-6.7) 10^3/uL 16.30 H Absolute Lymphocytes (1.2-3.4) 10^3/uL 1.47 Absolute Monocytes (0.1-0.8) 10^3/uL 1.49 H Absolute Eosinophils (0.0-0.7) 10^3/uL 0.00 Absolute Basophils (0.0-0.2) 10^3/uL 0.04 Sodium Cancelled Potassium Cancelled Chloride Cancelled Carbon Dioxide Cancelled Anion Gap Cancelled BUN Cancelled Creatinine Cancelled Est GFR (CKD-EPI 2020) Cancelled Glucose Cancelled Calcium Cancelled Total Bilirubin Cancelled AST Cancelled ALT Cancelled Alkaline Phosphatase Cancelled Total Protein Cancelled Albumin Cancelled Patient ABO/Rh A Positive Antibody Screen POSITIVE Antibody Identification Anti-K Crossmatch See Detail Range/Units 04/24/23 20:52 WBC (4.4-10.8) 10^3/uL RBC (3.93-5.22) 10^6/uL Hgb (11.2-15.7) g/dL 7.7 L Hct (36.0-46.0) % 23.3 L MCV (80-95) fL MCH (27.0-33.0) pg MCHC (32.0-36.0) % RDW (11.7-14.6) % Plt Count (130-400) 10^3/uL MPV (8.0-11.0) fL Immature Gran % Neutrophils % Lymphocytes % Monocytes % Eosinophils % Basophils % Nucleated RBC % (0.0-0.3) % Absolute Neutrophils (1.2-6.7) 10^3/uL Absolute Lymphocytes (1.2-3.4) 10^3/uL Absolute Monocytes (0.1-0.8) 10^3/uL Absolute Eosinophils (0.0-0.7) 10^3/uL Absolute Basophils (0.0-0.2) 10^3/uL Sodium Potassium Chloride Carbon Dioxide Anion Gap BUN Creatinine Est GFR (CKD-EPI 2020) Glucose Calcium Total Bilirubin AST ALT Alkaline Phosphatase Total Protein Albumin Patient ABO/Rh Antibody Screen Antibody Identification Crossmatch Medical Decision Making <Casie Evangelista NP - Last Filed: 04/25/23 20:36> 87-year-old returns with ongoing bleeding from an ulcer at her ileostomy site. She is tachycardic hypotensive will establish IV type and cross plan to transfuse 1 unit of packed red blood cells. In the meantime she is given 1 L of normal saline. Dr. Rajan from general surgery consulted and at bedside for evaluation. Reporting care of patient transferred to Dr. Rajan for further management Medical Records Medical records reviewed: Yes I reviewed the patient's medical records. Lab Data Lab results reviewed: Yes I reviewed the patient's lab results. Lab results narrative: Laboratory Tests Range/Units 04/24/23 04/24/23 04/24/23 17:34 17:34 18:04 WBC (4.4-10.8) 10^3/uL 19.54 H RBC (3.93-5.22) 10^6/uL 3.11 L Hgb (11.2-15.7) g/dL 9.0 L D Hct (36.0-46.0) % 27.4 L MCV (80-95) fL 88 MCH (27.0-33.0) pg 28.9 MCHC (32.0-36.0) % 32.8 RDW (11.7-14.6) % 14.3 Plt Count (130-400) 10^3/uL 158 MPV (8.0-11.0) fL 9.2 Immature Gran % 1.3 Neutrophils % 83.4 Lymphocytes % 7.5 Monocytes % 7.6 Eosinophils % 0.0 Basophils % 0.2 Nucleated RBC % (0.0-0.3) % 0.0 Absolute Neutrophils (1.2-6.7) 10^3/uL 16.30 H Absolute Lymphocytes (1.2-3.4) 10^3/uL 1.47 Absolute Monocytes (0.1-0.8) 10^3/uL 1.49 H Absolute Eosinophils (0.0-0.7) 10^3/uL 0.00 Absolute Basophils (0.0-0.2) 10^3/uL 0.04 Sodium Cancelled Potassium Cancelled Chloride Cancelled Carbon Dioxide Cancelled Anion Gap Cancelled BUN Cancelled Creatinine Cancelled Est GFR (CKD-EPI 2020) Cancelled Glucose Cancelled Hemoglobin A1c (<5.7) % Calcium Cancelled Total Bilirubin Cancelled AST Cancelled ALT Cancelled Alkaline Phosphatase Cancelled Troponin I (<or=60) ng/L Total Protein Cancelled Albumin Cancelled Patient ABO/Rh A Positive Antibody Screen POSITIVE Antibody Identification Anti-K Crossmatch See Detail Range/Units 04/24/23 04/25/23 04/25/23 20:52 06:12 06:12 WBC (4.4-10.8) 10^3/uL 13.26 H RBC (3.93-5.22) 10^6/uL 3.49 L Hgb (11.2-15.7) g/dL 7.7 L 10.2 L D Hct (36.0-46.0) % 23.3 L 30.6 L MCV (80-95) fL 88 MCH (27.0-33.0) pg 29.2 MCHC (32.0-36.0) % 33.3 RDW (11.7-14.6) % 14.1 Plt Count (130-400) 10^3/uL 83 L MPV (8.0-11.0) fL 9.7 Immature Gran % 0.8 Neutrophils % 78.0 Lymphocytes % 13.7 Monocytes % 7.3 Eosinophils % 0.0 Basophils % 0.2 Nucleated RBC % (0.0-0.3) % 0.0 Absolute Neutrophils (1.2-6.7) 10^3/uL 10.34 H Absolute Lymphocytes (1.2-3.4) 10^3/uL 1.82 Absolute Monocytes (0.1-0.8) 10^3/uL 0.97 H Absolute Eosinophils (0.0-0.7) 10^3/uL 0.00 Absolute Basophils (0.0-0.2) 10^3/uL 0.03 Sodium Potassium Chloride Carbon Dioxide Anion Gap BUN Creatinine Est GFR (CKD-EPI 2020) Glucose Hemoglobin A1c (<5.7) % 5.3 Calcium Total Bilirubin AST ALT Alkaline Phosphatase Troponin I (<or=60) ng/L Total Protein Albumin Patient ABO/Rh Antibody Screen Antibody Identification Crossmatch Range/Units 04/25/23 04/25/23 06:12 11:02 WBC (4.4-10.8) 10^3/uL RBC (3.93-5.22) 10^6/uL Hgb (11.2-15.7) g/dL Hct (36.0-46.0) % MCV (80-95) fL MCH (27.0-33.0) pg MCHC (32.0-36.0) % RDW (11.7-14.6) % Plt Count (130-400) 10^3/uL MPV (8.0-11.0) fL Immature Gran % Neutrophils % Lymphocytes % Monocytes % Eosinophils % Basophils % Nucleated RBC % (0.0-0.3) % Absolute Neutrophils (1.2-6.7) 10^3/uL Absolute Lymphocytes (1.2-3.4) 10^3/uL Absolute Monocytes (0.1-0.8) 10^3/uL Absolute Eosinophils (0.0-0.7) 10^3/uL Absolute Basophils (0.0-0.2) 10^3/uL Sodium Potassium Chloride Carbon Dioxide Anion Gap BUN Creatinine Est GFR (CKD-EPI 2020) Glucose Hemoglobin A1c (<5.7) % Calcium Total Bilirubin AST ALT Alkaline Phosphatase Troponin I (<or=60) ng/L 388 H* 329 H* Total Protein Albumin Patient ABO/Rh Antibody Screen Antibody Identification Crossmatch <Edwin Rangel MD - Last Filed: 03/01/24 01:20> Medical Records Medical records narrative: I did not see this patient nor participate in her care. Edwin Rangel MD [facility] <Casie Evangelista NP - Last Filed: 04/25/23 20:36> All Active Problems (Updated 07/05/23 @ 00:11 by HARI WHITMAN) PSVT (paroxysmal supraventricular tachycardia) (Acute) At high risk for skin breakdown (Acute) Parastomal ulcer of enterostomy (Acute) 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 (Acute) Abn react-external stoma (Acute) Pacemaker (Chronic) Elevated serum creatinine (Acute) Chronic pain in left foot (Acute) Hypercholesterolemia (Acute) Anemia due to GI blood loss (Acute) Medical History (Updated 07/05/23 @ 00:11 by HARI WHITMAN) Hypomagnesemia Elevated troponin H/O malignant neoplasm of colon History of breast cancer CKD (chronic kidney disease), stage III CONTRERAS (nonalcoholic steatohepatitis) Cirrhosis Ischemic neuropathy of foot PAD (peripheral artery disease) Colon cancer Hypertension Paroxysmal atrial fibrillation Breast cancer Remains RADHA Surgical History Hemicolectomy (06/30/13) Right, 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 Park @ [facility], 2014-no recurrence Social History Smoking/Tobacco Use Status: Never Smoking risk assessment performed?: Yes Alcohol Intake: never Drug use: Never Housing: house Do you feel safe at home: Yes Do you feel safe in your relationship?: Yes
--- NOTE | 2023-04-24 21:27 | NUR.NOTE ---
Nursing Note: Surgeon came to room to stitch the patients areas of bleeding. She cauterized the area as well. RN and EMT-P in room to assist with reapplying the adhesive post surgeon being in room.
[2023-04-24] MEDS: fentaNYL 100 MCG/2 ML VIAL ×2 (21:28→21:31)
--- NOTE | 2023-04-24 21:35 | HPE_ITS ---
Date of service: 04/24/23 Time of Service: 21:35 Assessment and Plan Assessment and plan (1) 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: Status: Acute Assessment and plan: x2 bleeding veins that were oversewn and cauterized. The area was packed w/ gel foam and covered w/ tegaderm. The skin in this area is very macerated. She has had problems w/ bleeding in this area since 2018, from reviewing [facility] chart She had an MRI in 05/21 that did not show any portal HTN. 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 -Patient will be admitted overnight for observation and to receive a unit of blood. -We will change to convex pouching system in a.m. Check CBC and troponin in a.m.- This document was created with voice activated software and may contain errors. 90 mins spent with the patient today. (2) Anemia due to GI blood loss: Status: Acute Assessment and plan: - she is c/o sob. She did pass out at home. She denies CP. She does have a hx of A fib and has a pcer in place. The battery was change in 04/21. she is not on any thinners/asa. -hold any asa/nsaid's/heparin or lovenox due to increase risk of bleeding. (3) Hypercholesterolemia: Status: Acute (4) Pacemaker: Status: Acute Assessment and plan: Pacer site is clean dry and intact and well-healed (5) Breast cancer: (6) Cirrhosis: (7) CKD (chronic kidney disease), stage III: (8) H/O malignant neoplasm of colon: (9) Hypertension: (10) Ischemic neuropathy of foot: (11) OSBORNE (nonalcoholic steatohepatitis): (12) PAD (peripheral artery disease): (13) Paroxysmal atrial fibrillation: History of Present Illness Narrative: pt presented to the ED w/ venous bleeding from stoma. Pt has a senior living ileos jair that was placed in 2012. She had an extended right hemicolectomy for perforated colon cancer. This was done at [facility]. Her stay at that time was complicated by sepsis and prolonged mechanical ventilation. I did review the notes from [facility]. She has been having problems with peristomal bleeding since 2018. She does have a history of cirrhosis due to Osborne. She did have a CT scan and an MRI of the liver in 2021 at [facility]. The case was discussed at liver panel conference. They decided she does have cirrhosis but no signs of portal hypertension. There is no signs of varices around her stoma at that time. No real etiology for the continued bleeding has been discovered. She has been using the same pouching system since 2018 and has not been down to ostomy clinic since that time. She has gained 30 pounds or more since that time. She denies any trauma or injury. She denies any change to her routine as far as how changing her diet. She is well aware of foods she can have and what needs to avoid. She recently had a pacemaker battery changed. This went without incident. She did have a follow-up appointment with Dr. Heranndez on 217 in [place]. I did review this note She had bleeding last night and went [place] [facility] [place]. By the time she got there the bleeding was stopped. They did not really do much at [facility] [place] [place]. Patient states they did not even check her blood count. Today she has had significant heavy bleeding with at least 400 cc of acute blood loss. She did pass out at home and ambulance was called. She feels weak, dizzy, and short of breath. She was having chest pain at home. He is current hemoglobin is 7.7 and she is going to require a unit of blood Review of Systems All systems reviewed & are unremarkable except as noted in HPI and below PFSH All Active Problems (Updated 04/25/23 @ 15:36 by Christina Rajan DO) Parastomal ulcer of enterostomy (Acute) Elevated troponin (Acute) 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 (Acute) Abn react-external stoma (Acute) Acute kidney injury superimposed on chronic kidney disease (Acute) Pacemaker (Acute) Elevated serum creatinine (Acute) Hyperkalemia (Acute) Chronic pain in left foot (Acute) Hypercholesterolemia (Acute) Discharge planning issues (Acute) Anemia due to GI blood loss (Acute) Medical History (Updated 04/25/23 @ 15:36 by Christina Rajan DO) Breast cancer Remains RADHA Cirrhosis CKD (chronic kidney disease), stage III Colon cancer H/O malignant neoplasm of colon History of breast cancer Hypertension Ischemic neuropathy of foot OSBORNE (nonalcoholic steatohepatitis) PAD (peripheral artery disease) Paroxysmal atrial fibrillation Surgical History 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 Park @ [facility] [place], 2015-no recurrence Colostomy Hemicolectomy (06/30/13) Right, due to colonic perforation from adenocarcinoma of transverse colon Social History Smoking/Tobacco Use Status: Never Smoking risk assessment performed?: Yes Alcohol Intake: never Drug use: Never Do you feel safe in your relationship?: Yes Meds Allergies and Home Medications Allergies Allergy/AdvReac Type Severity Reaction Status Date / Time No Known Allergies Allergy Unverified 04/24/23 00:09 Home Medications Medication Instructions Recorded Confirmed Type gabapentin 600 mg tablet 600 mg PO BID 09/16/16 04/24/23 History metoprolol succinate 100 mg 100 mg PO QPM 03/13/18 04/24/23 History tablet,extended release 24 hr naproxen sodium 220 mg tablet 220 mg PO BID 11/04/21 04/24/23 History (Aleve) Exam Const General: cooperative, healthy appearing, comfortable and no acute distress Nutritional Appearance: overweight Orientation: alert, awake and oriented x3 Other: PHYSICAL EXAM GENERAL APPEARANCE: Alert, healthy appearance, oriented, x 3,? in no acute distress HYDRATION: Well hydrated HEAD, EYES, EARS, NECK, THROAT: Head is normocephalic, pupils equal, round, reactive to light and accommodation, ocular movement intact, sclera clear and no jaundice. ?Dentition intact. NECK: Trachea midline.? No JVD LUNGS: normal respiration/normal chest excursion. ?Clear to auscultation bilaterally. ?No wheeze. ?HEART: Regular rate and rhythm. no murmurs EXTREMITY: No edema or cyanosis.? no leg pain, redness, swelling.? ABDOMEN: soft and non-tender to palpation.? Normal bowel sounds.? No hernias.? Pressure dressing that was placed by the ER is taken down. She did have preprocedural Emla placed. She does have a few areas of pinpoint bleeding and these were cauterized. She has some necrotic tissue in the peristomal skin from the 4 to 7 o'clock position. This is debrided away. Upon doing this it is discovered that she has a 0.8 mm vein that is heavily and actively bleeding. 2 Vicryl sutures are placed across this to successfully quiescent the bleeding. Gelfoam is placed on the area and as well as Tegaderm to provide a compression dressing. Colostomy bag is placed over top of this. I am aware that this is going to leak and this is only a temporizing measure. We will allow a pressure dressing for the next 12 hours and then replaced the bag. Her stoma is very concave and is going to require a convex pouching system. Hopefully this can help alleviate drainage/skin maceration and bleeding. Results Labs 04/25/23 06:12 04/24/23 17:34 Labs: Laboratory Results - last 24 hr 04/24/23 04/24/23 04/24/23 17:34 17:34 18:04 WBC 19.54 H RBC 3.11 L Hgb 9.0 L D Hct 27.4 L MCV 88 MCH 28.9 MCHC 32.8 RDW 14.3 Plt Count 158 MPV 9.2 Immature Gran % 1.3 Neutrophils % 83.4 Lymphocytes % 7.5 Monocytes % 7.6 Eosinophils % 0.0 Basophils % 0.2 Nucleated RBC % 0.0 Absolute Neutrophils 16.30 H Absolute Lymphocytes 1.47 Absolute Monocytes 1.49 H Absolute Eosinophils 0.00 Absolute Basophils 0.04 Sodium Cancelled Potassium Cancelled Chloride Cancelled Carbon Dioxide Cancelled Anion Gap Cancelled BUN Cancelled Creatinine Cancelled Est GFR (CKD-EPI 2020) Cancelled Glucose Cancelled Calcium Cancelled Total Bilirubin Cancelled AST Cancelled ALT Cancelled Alkaline Phosphatase Cancelled Total Protein Cancelled Albumin Cancelled Patient ABO/Rh A Positive Antibody Screen POSITIVE Antibody Identification Anti-K Crossmatch See Detail 04/24/23 20:52 WBC RBC Hgb 7.7 L Hct 23.3 L MCV MCH MCHC RDW Plt Count MPV Immature Gran % Neutrophils % Lymphocytes % Monocytes % Eosinophils % Basophils % Nucleated RBC % Absolute Neutrophils Absolute Lymphocytes Absolute Monocytes Absolute Eosinophils Absolute Basophils Sodium Potassium Chloride Carbon Dioxide Anion Gap BUN Creatinine Est GFR (CKD-EPI 2020) Glucose Calcium Total Bilirubin AST ALT Alkaline Phosphatase Total Protein Albumin Patient ABO/Rh Antibody Screen Antibody Identification Crossmatch Last Vital Signs Temp 36.5 C 04/24/23 16:56 Pulse 91 H 04/24/23 20:32 Resp 17 04/24/23 20:16 BP 96/64 L 04/24/23 20:32 Pulse Ox 98 04/24/23 20:50 Time Spent Time spent with Patient: >75 minutes Time was spent: preparing to see the patient(eg.review tests), obtaining and/or reviewing separately otained hiistory, ordering medications,tests, procedures, referring, communicating with other health urgent care nurse practitioner, indepentently interpreting results, counseling the patient and care coordination
[2023-04-25] VITALS (68 sets, daily range): BP systolic 65–125; BP diastolic 38–86; PULSE 59–163; RESP 11–31; TEMP 35.9–37.2; O2SAT 92–100
[2023-04-25] MEDS: diphenhydrAMINE 25 MG CAP PO (00:53)
[2023-04-25] MEDS: Acetaminophen 325 MG TAB 650 MG PO (00:54)
[2023-04-25 06:33] LABS: Abs Immature Grans 0.11 10^3/uL (0.0-0.06); Absolute Basophil Count 0.03 10^3/uL (0.0-0.2); Absolute Lymphocyte Count 1.82 10^3/uL (1.2-3.4); Absolute Monocyte Count 0.97 10^3/uL (0.1-0.8); Basophils % 0.2; HCT 30.6 % (36.0-46.0); Immature Grans % 0.8; Lymphocytes % 13.7; MCH 29.2 pg (27.0-33.0); MCHC 33.3 % (32.0-36.0); MCV 88 fL (80-95); MPV 9.7 fL (8.0-11.0); Monocytes % 7.3; Platelet Count 83 10^3/uL (130-400); RBC 3.49 10^6/uL (3.93-5.22); RDW 14.1 % (11.7-14.6); RDW-SD 44.8 fL; WBC 13.26 10^3/uL (4.4-10.8)
[2023-04-25 06:49] LABS: Absolute Neutrophil Count 10.34 10^3/uL (1.2-6.7)
[2023-04-25 06:53] LABS: HGB 10.2 g/dL (11.2-15.7)
[2023-04-25 06:59] LABS: Hemoglobin A1C 5.3 % (<5.7)
[2023-04-25 07:20] LABS: Troponin I 388 ng/L (<or=60)
[2023-04-25] MEDS: Gabapentin 600 MG TAB PO (07:48)
[2023-04-25] MEDS: IRON SUCROSE COMPLEX 200 MG in Normal Saline 100 ML 440 MG IVPB (09:52)
--- NOTE | 2023-04-25 10:40 | PGE_ITS ---
Date of Service Date of service: 04/25/23 Time of Service: 10:40 Assessment and Plan Assessment and plan (1) 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: Status: Acute (2) Elevated troponin: Status: Acute Assessment and plan: -hospitalists were consulted -I did review Dr Trejo notes- Paroxismal a fib/Recent pacer battery replacement/B Blockers for rate control. No hx of CHF pt transffered to ICU for cardiac Monitoring -repeat trop's show down trending -pt still feels week and SOB -Hospitalist will take over Management of her carrdiac issues. surgery will continue to care for stoma and work on getting her new pouching system and skin issues. 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 -nystqatin placed. duoderm placed over this for protection -convex pouching system placed. -pt uses [employer] for supplies. she has developed stomal retraction/wt gain, and is going to require change in pouching system. Subjective Subjective Interval history since last seen: Pt is doing well. no headaches. No CP at rest. no productive cough. no dysuria. no leg pain or swelling. hgb today improved. no stomal bleeding overnight. Her metoprolol was held last night b/c SBP ~90. Today HR is in 160's. Pt transferred to ICU for Monitoring of HR, and hospitalists consulted. Pt did have breakfast and drank fluids. No urine output noted by RN's since admission. bladder scan and fluid bolus in progress. Pt did receive 1 until RPBC in er last night. pt had pacer battery change 03/[address] Hernandez on 04/15. Her pacer was working well at that time. She has a hx of paroxismal A fib (which her rate may be fib/flutter). She has not had a recent echo/cath in chart. She did have CT/MRI in 2021 that shows cirrhosis, but no portal HTN. She has had ongoing problems w/ stoma bleeding since 2018. No sign of stomal varices on MRI. No bleeding today. stoma shows maceration from 4-7 position and yeast. Stoma is also quite retracted. Pt notes she has gained 30#+ since it was done. She has not changed her pouching system since 2018. She uses [employer] for supplies (telephone ordering). I did place a convex flip Coloplast appliance today and w/ nystatin/stoma poder & paste. We need to get the peristomal skin irritation cleared up and different pouching system to avoid leaks/maceration/bleeding. Exam Narrative Exam Narrative: pt notes she feels fatigued and SOB, week. Const General: cooperative, healthy appearing and comfortable Nutritional Appearance: overweight Orientation: alert, awake and oriented x3 Other: HR- SVT L: CTA abdom: soft non tender. + BS ostomy- no bleeding. severe maceration 4-7 oclock postition. 3x1cm. sutures were Placed in the ED last night. NO bleeding. signs of yeast around entire peristomal skin. also in intertriginous areas. LE- no edema Objective Last Vital Signs Temp 37.0 C 04/25/23 06:05 Pulse 83 04/25/23 06:05 Resp 18 04/25/23 06:05 BP 107/64 04/25/23 06:05 Pulse Ox 99 04/25/23 06:05 Laboratory Results - last 24 hr 04/24/23 04/24/23 04/24/23 17:34 17:34 18:04 WBC 19.54 H RBC 3.11 L Hgb 9.0 L D Hct 27.4 L MCV 88 MCH 28.9 MCHC 32.8 RDW 14.3 Plt Count 158 MPV 9.2 Immature Gran % 1.3 Neutrophils % 83.4 Lymphocytes % 7.5 Monocytes % 7.6 Eosinophils % 0.0 Basophils % 0.2 Nucleated RBC % 0.0 Absolute Neutrophils 16.30 H Absolute Lymphocytes 1.47 Absolute Monocytes 1.49 H Absolute Eosinophils 0.00 Absolute Basophils 0.04 Sodium Cancelled Potassium Cancelled Chloride Cancelled Carbon Dioxide Cancelled Anion Gap Cancelled BUN Cancelled Creatinine Cancelled Est GFR (CKD-EPI 2020) Cancelled Glucose Cancelled Hemoglobin A1c Calcium Cancelled Total Bilirubin Cancelled AST Cancelled ALT Cancelled Alkaline Phosphatase Cancelled Troponin I Total Protein Cancelled Albumin Cancelled Patient ABO/Rh A Positive Antibody Screen POSITIVE Antibody Identification Anti-K Crossmatch See Detail 04/24/23 04/25/23 04/25/23 20:52 06:12 06:12 WBC 13.26 H RBC 3.49 L Hgb 7.7 L 10.2 L D Hct 23.3 L 30.6 L MCV 88 MCH 29.2 MCHC 33.3 RDW 14.1 Plt Count 83 L MPV 9.7 Immature Gran % 0.8 Neutrophils % 78.0 Lymphocytes % 13.7 Monocytes % 7.3 Eosinophils % 0.0 Basophils % 0.2 Nucleated RBC % 0.0 Absolute Neutrophils 10.34 H Absolute Lymphocytes 1.82 Absolute Monocytes 0.97 H Absolute Eosinophils 0.00 Absolute Basophils 0.03 Sodium Potassium Chloride Carbon Dioxide Anion Gap BUN Creatinine Est GFR (CKD-EPI 2020) Glucose Hemoglobin A1c 5.3 Calcium Total Bilirubin AST ALT Alkaline Phosphatase Troponin I Total Protein Albumin Patient ABO/Rh Antibody Screen Antibody Identification Crossmatch 04/25/23 06:12 WBC RBC Hgb Hct MCV MCH MCHC RDW Plt Count MPV Immature Gran % Neutrophils % Lymphocytes % Monocytes % Eosinophils % Basophils % Nucleated RBC % Absolute Neutrophils Absolute Lymphocytes Absolute Monocytes Absolute Eosinophils Absolute Basophils Sodium Potassium Chloride Carbon Dioxide Anion Gap BUN Creatinine Est GFR (CKD-EPI 2020) Glucose Hemoglobin A1c Calcium Total Bilirubin AST ALT Alkaline Phosphatase Troponin I 388 H* Total Protein Albumin Patient ABO/Rh Antibody Screen Antibody Identification Crossmatch Time Spent with Patient Time Spent with Patient: >50 minutes Time was spent: preparing to see the patient(eg.review tests), ordering medic ations,tests, procedures, referring, communicating with other health complex care nurse practitioner, indepentently interpreting results, counseling the patient, care coordination and other
--- NOTE | 2023-04-25 10:45 | RT.EKG_ITS ---
APPROVED REPORT Exam: Resting ECG Reason for Exam: Elevated troponin, blood loss anemia Patient Location: I HR:165 bpm ECG Measurements Heart Rate 165 AXIS MO [id number] P 0 QRSd 117 QRS -63 QT 306 T 93 QTc 507 Conclusion Supraventricular tachycardia...V-rate>(220-age), QRSd<120 RBBB and LAFB...QRSd >120mS, axis(-40,240) LVH with secondary repolarization abnormality...multi-LVH criteria, abnrm ST-T
[2023-04-25 11:30] LABS: Troponin I 329 ng/L (<or=60)
[2023-04-25] MEDS: Metoprolol 5 MG/5 ML VIAL IVP (13:00)
--- NOTE | 2023-04-25 13:41 | NUR.NOTE ---
Nursing Note: pt transfered to ICU.
[2023-04-25 14:06] LABS: Troponin I 253 ng/L (<or=60)
[2023-04-25 14:34] LABS: Lab Add On Test DONE
[2023-04-25 14:47] LABS: Magnesium 1.6 mg/dL (1.8-2.4)
[2023-04-25] MEDS: Normal Saline 250 ML 500 ML IV ×3 (14:52→16:45)
--- NOTE | 2023-04-25 14:57 | INITIAL_ITS ---
Date of service: 04/25/23 Time of Service: 14:57 Care Management Initial Assmt Initial Assessment REASON FOR HOSPITALIZATION:: Bleeding colostomy PREVIOUS FUNCTIONAL STATUS/SOCIAL/FAMILY SUPPORTS:: Resides in [facility] with , Mayur, previously independent with ADLs. CURRENT FUNCTIONAL STATUS:: Admitted to ICU ADVANCE DIRECTIVES:: None on file. Has patient been provided with info about the portal/API?: No Did the patient sign up for the portal?: No CODE STATUS:: Full Code INSURANCE COVERAGE / FINANCIAL ISSUES:: Medicare CURRENT HOME/COMMUNITY SERVICES/EQUIPMENT:: Colostomy PRIMARY CARE PHYSICIAN:: Dede Miller POTENTIAL DISCHARGE NEEDS:: Palliative consult; DNR/DNI discussion; requiring transfusions PATIENT/FAMILY EDUCATION NEEDS:: Review discharge instructions, discuss Ask Me Three. ANTICIPATED BARRIERS TO DISCHARGE:: None identified. TRANSPORTATION:: Dependent on disposition. PLAN:: MD to discuss code status, goals of care; refer to documentation for further details. CM continues to follow. PFSH All Active Problems (Updated 04/25/23 @ 15:36 by Christina Rajan DO) Parastomal ulcer of enterostomy (Acute) Elevated troponin (Acute) 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 (Acute) Abn react-external stoma (Acute) Acute kidney injury superimposed on chronic kidney disease (Acute) Pacemaker (Acute) Elevated serum creatinine (Acute) Hyperkalemia (Acute) Chronic pain in left foot (Acute) Hypercholesterolemia (Acute) Discharge planning issues (Acute) Anemia due to GI blood loss (Acute) Medical History (Updated 04/25/23 @ 15:36 by Christina Rajan DO) Breast cancer Remains RADHA Cirrhosis CKD (chronic kidney disease), stage III Colon cancer H/O malignant neoplasm of colon History of breast cancer Hypertension Ischemic neuropathy of foot CONTRERAS (nonalcoholic steatohepatitis) PAD (peripheral artery disease) Paroxysmal atrial fibrillation Surgical History 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
--- NOTE | 2023-04-25 15:57 | MCONE_ITS ---
Date of service: 04/25/23 Time of Service: 15:58 Assessment and Plan Assessment and plan (1) 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: Status: Acute Assessment and plan: Recurring. Dr Rajan has fitting her with a new pouching system that has brought the stoma above the skin surface. In the ED she had stitched an actively bleeding vein. Transfused and Hgb now 102. (2) Elevated troponin: Status: Acute Assessment and plan: Demand ischemia secondary to SVT. Troponin trend: 388 > 329 > 253. EKG w/o ST elevation. (3) Pacemaker: Status: Acute Assessment and plan: Interrogated on 04/15/25 in cardiology office. Battery changed at that visit. (4) Elevated serum creatinine: Status: Acute Assessment and plan: Volume depleted likely. Judicious IV fluid boluses and monitor. (5) Cirrhosis: Assessment and plan: Total bilirubin 1.5; previously 1.3 x 2 in our records. (6) CKD (chronic kidney disease), stage III: Assessment and plan: Creatinine now 2.6; variable creatinine readings in chart from mid 2's to 3's. Currently giving fluid d/t poor urine output and low BP. (7) Hypertension: (8) Ischemic neuropathy of foot: Assessment and plan: BP now low with low normal MAP. Continues on metoprolol d/t SVT. (9) CONTRERAS (nonalcoholic steatohepatitis): Assessment and plan: cause of her cirrhosis. (10) PAD (peripheral artery disease): Assessment and plan: No on an ASA. ON BB. (11) Paroxysmal atrial fibrillation: Assessment and plan: Now with SVT that, as the rate is slowing, is possibly aflutter. Cont nightly metoprolol with prn IV metoprolol. K normal. Mg 1.6; replete with IV and monitor. Diltiazem if not improving. Likely driven by volume depletion, blood loss and low Mg. (12) Anemia due to GI blood loss: Status: Acute Assessment and plan: As above; monitor. (13) Hypercholesterolemia: Status: Acute Assessment and plan: Not on a medication for this problem. History of Present Illness History of Present Illness Chief Complaint: Bleed from ileostomy site, elevated troponin Narrative: This is an 87 yo female with a PMH of colon cancer s/p ileostomy, cirrhosis d/t CONTRERAS, breast cancer s/p surgery, CKD III, HTN, Afib HLD, hemorrhage from ileostomy, pacemaker. She was admitted for hemorrhage at the ileostomy site; this has been a recurring probelms. Dr Romeo admitted the patient and is requesting a medicine service consult d/t an elevated troponin. EKG and telemetry has revealed SVT with a ventricular rate of 165. She endorses feeling a flutter in her mid upper chest. + mild shortness of breath. No N/V. Review of Systems All systems reviewed & are unremarkable except as noted in HPI and below PFSH All Active Problems (Updated 04/25/23 @ 15:36 by Christina Rajan DO) Parastomal ulcer of enterostomy (Acute) Elevated troponin (Acute) 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 (Acute) Abn react-external stoma (Acute) Acute kidney injury superimposed on chronic kidney disease (Acute) Pacemaker (Acute) Elevated serum creatinine (Acute) Hyperkalemia (Acute) Chronic pain in left foot (Acute) Hypercholesterolemia (Acute) Discharge planning issues (Acute) Anemia due to GI blood loss (Acute) Medical History (Updated 04/25/23 @ 15:36 by Christina Rajan DO) Breast cancer Remains RADHA Cirrhosis CKD (chronic kidney disease), stage III Colon cancer H/O malignant neoplasm of colon History of breast cancer Hypertension Ischemic neuropathy of foot CONTRERAS (nonalcoholic steatohepatitis) PAD (peripheral artery disease) Paroxysmal atrial fibrillation Surgical History 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 Odor of stool noted. Const General: cooperative, frail appearing and ill appearing chronically Nutritional Appearance: overweight Orientation: alert, awake and oriented x3 HENMT Head: atraumatic Mouth: moist mucous membranes abnormal (Dry) Eyes General: appearance normal, both eyes and all related structures Sclera: sclerae normal Chest Chest: normal inspection of the chest Resp Effort & Inspection: normal respiratory effort Auscultation: clear to auscultation bilaterally Cardio Rate: tachycardic Rhythm: regular rhythm GI Inspection: obesity and other (Ostomy intact right side. Maroon liquid in ostomy bag. Seepage onto skin. ) Palpation: soft Auscultation: normal bowel sounds Skin General skin exam: no rashes or lesions noted and pallor Neuro General: patient alert, patient awake, patient oriented x3 and no focal motor deficits Extrem General: no pedal edema and no calf tenderness Results Last Vital Signs Temp 35.9 C L 04/25/23 15:37 Pulse 129 H 04/25/23 13:54 Resp 20 04/25/23 15:37 BP 106/61 04/25/23 13:54 Pulse Ox 98 04/25/23 13:54 Labs 04/25/23 06:12 04/24/23 17:34 Labs: Laboratory Results - last 24 hr 04/24/23 04/24/23 04/24/23 17:34 17:34 18:04 WBC 19.54 H RBC 3.11 L Hgb 9.0 L D Hct 27.4 L MCV 88 MCH 28.9 MCHC 32.8 RDW 14.3 Plt Count 158 MPV 9.2 Immature Gran % 1.3 Neutrophils % 83.4 Lymphocytes % 7.5 Monocytes % 7.6 Eosinophils % 0.0 Basophils % 0.2 Nucleated RBC % 0.0 Absolute Neutrophils 16.30 H Absolute Lymphocytes 1.47 Absolute Monocytes 1.49 H Absolute Eosinophils 0.00 Absolute Basophils 0.04 Sodium Cancelled Potassium Cancelled Chloride Cancelled Carbon Dioxide Cancelled Anion Gap Cancelled BUN Cancelled Creatinine Cancelled Est GFR (CKD-EPI 2020) Cancelled Glucose Cancelled Hemoglobin A1c Calcium Cancelled Magnesium Total Bilirubin Cancelled AST Cancelled ALT Cancelled Alkaline Phosphatase Cancelled Troponin I Total Protein Cancelled Albumin Cancelled Add-On Test Request Patient ABO/Rh A Positive Antibody Screen POSITIVE Antibody Identification Anti-K Crossmatch See Detail 04/24/23 04/25/23 04/25/23 20:52 06:12 06:12 WBC 13.26 H RBC 3.49 L Hgb 7.7 L 10.2 L D Hct 23.3 L 30.6 L MCV 88 MCH 29.2 MCHC 33.3 RDW 14.1 Plt Count 83 L MPV 9.7 Immature Gran % 0.8 Neutrophils % 78.0 Lymphocytes % 13.7 Monocytes % 7.3 Eosinophils % 0.0 Basophils % 0.2 Nucleated RBC % 0.0 Absolute Neutrophils 10.34 H Absolute Lymphocytes 1.82 Absolute Monocytes 0.97 H Absolute Eosinophils 0.00 Absolute Basophils 0.03 Sodium Potassium Chloride Carbon Dioxide Anion Gap BUN Creatinine Est GFR (CKD-EPI 2020) Glucose Hemoglobin A1c 5.3 Calcium Magnesium Total Bilirubin AST ALT Alkaline Phosphatase Troponin I Total Protein Albumin Add-On Test Request Patient ABO/Rh Antibody Screen Antibody Identification Crossmatch 04/25/23 04/25/23 04/25/23 06:12 11:02 13:33 WBC RBC Hgb Hct MCV MCH MCHC RDW Plt Count MPV Immature Gran % Neutrophils % Lymphocytes % Monocytes % Eosinophils % Basophils % Nucleated RBC % Absolute Neutrophils Absolute Lymphocytes Absolute Monocytes Absolute Eosinophils Absolute Basophils Sodium Potassium Chloride Carbon Dioxide Anion Gap BUN Creatinine Est GFR (CKD-EPI 2020) Glucose Hemoglobin A1c Calcium Magnesium Total Bilirubin AST ALT Alkaline Phosphatase Troponin I 388 H* 329 H* 253 H* Total Protein Albumin Add-On Test Request Patient ABO/Rh Antibody Screen Antibody Identification Crossmatch 04/25/23 04/25/23 13:33 Unknown WBC RBC Hgb Hct MCV MCH MCHC RDW Plt Count MPV Immature Gran % Neutrophils % Lymphocytes % Monocytes % Eosinophils % Basophils % Nucleated RBC % Absolute Neutrophils Absolute Lymphocytes Absolute Monocytes Absolute Eosinophils Absolute Basophils Sodium Potassium Chloride Carbon Dioxide Anion Gap BUN Creatinine Est GFR (CKD-EPI 2020) Glucose Hemoglobin A1c Calcium Magnesium 1.6 L Total Bilirubin AST ALT Alkaline Phosphatase Troponin I Total Protein Albumin Add-On Test Request DONE Patient ABO/Rh Antibody Screen Antibody Identification Crossmatch
[2023-04-25] MEDS: MAGNESIUM SULFATE 4 GM/100 ML BAG IVPB (17:31)
[2023-04-25] MEDS: Metoprolol CR 50 MG TABCR PO (17:52)
[2023-04-25 19:04] LABS: HCT 30.4 % (36.0-46.0); HGB 10.2 g/dL (11.2-15.7)
[2023-04-25] MEDS: Gabapentin 300 MG CAP PO (19:54)
[2023-04-25] MEDS: Acetaminophen 500 MG TAB 1000 MG PO (19:54)
[2023-04-25] MEDS: Normal Saline Flush 10 ML SYR IVP (23:41)
[2023-04-26] VITALS (72 sets, daily range): BP systolic 64–127; BP diastolic 25–74; PULSE 59–67; RESP 14–26; TEMP 36–37; O2SAT 93–100
[2023-04-26] MEDS: Normal Saline 1,000 ML 500 ML IV (00:43)
--- NOTE | 2023-04-26 01:19 | NUR.NOTE ---
Nursing Note: 250ml NS bolus completed at this time. Rate decreased to 100ml/hour. Patient provided opportunity to void at this time, declined.
[2023-04-26 06:43] LABS: Anion Gap 11.3 mmol/L (3-11); BUN 42 mg/dL (7-18); CO2 16.7 mmol/L (21.0-32.0); CREATININE 2.7 mg/dL (0.55-1.02); Calcium 8.7 mg/dL (8.5-10.1); Chloride 112 mmol/L (98-107); Estimated GFR 16.66 (mL/min/1.73m2); Glucose 117 mg/dL (74-106); Magnesium 2.8 mg/dL (1.8-2.4); Potassium 4.8 mmol/L (3.5-5.1); Sodium 140 mmol/L (136-145)
[2023-04-26 07:36] LABS: BE (Venous) -11 mmol/L (-2-3); HCO3 (Venous) 17 mmol/L (23-28); O2 Sat (Venous) 96 %; TCO2 (Venous) 16 mmol/L (24-29); pCO2 (Venous) 39 mmHg (41-51); pH (Venous) 7.24 (7.31-7.41); pO2 (Venous) 76 mmHg
[2023-04-26 07:37] LABS: Lactate 1.1 mmol/L (0.6-1.4)
[2023-04-26 07:38] LABS: Abs Immature Grans 0.08 10^3/uL (0.0-0.06); Absolute Basophil Count 0.05 10^3/uL (0.0-0.2); Absolute Eosinophil Count 0.05 10^3/uL (0.0-0.7); Absolute Lymphocyte Count 2.22 10^3/uL (1.2-3.4); Absolute Monocyte Count 0.76 10^3/uL (0.1-0.8); Absolute Neutrophil Count 6.61 10^3/uL (1.2-6.7); Basophils % 0.5; Eosinophils % 0.5; HGB 8.8 g/dL (11.2-15.7); Immature Grans % 0.8; Lymphocytes % 22.7; MCH 29.4 pg (27.0-33.0); MCHC 32.6 % (32.0-36.0); MCV 90 fL (80-95); MPV 9.6 fL (8.0-11.0); Monocytes % 7.8; Neutrophils % 67.7; RBC 2.99 10^6/uL (3.93-5.22); RDW 14.6 % (11.7-14.6); RDW-SD 47.7 fL; WBC 9.77 10^3/uL (4.4-10.8)
[2023-04-26 07:54] LABS: Diff Comment Diff Reviewed; Platelet Count 86 10^3/uL (130-400); RBC Morphology Normal
[2023-04-26] MEDS: Gabapentin 300 MG CAP PO (07:59)
[2023-04-26] MEDS: Lactated Ringers 1,000 ML 100 ML IV (08:05)
[2023-04-26] MEDS: Nystatin POWDER 15 GM JAR TP ×2 (10:40→20:23)
[2023-04-26] MEDS: Normal Saline 250 ML IV (11:05)
[2023-04-26] MEDS: Tranexamic Acid 1,000 MG/10 ML VIAL NS (12:15)
--- NOTE | 2023-04-26 13:10 | W.PM.PROGNOT ---
Date of Service Date of service: 04/26/23 Time of Service: 13:11 Assessment and Plan Assessment and plan (1) 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: Status: Acute Assessment and plan: Recurrent. Sutured again today. Discussed with Dr Rajan: may benefit from an IR sclerotherapy for the bleeding vessel should bleeding recur. We will have IR take a look at her case once we have imaging done. 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 The patient's kidney function would not permit a contrast study (either CT or MRI). May still be able to get some information from a noncontrast MRA or an ultrasound. Will trial octreotide. Transfusing 2 units pRBCs today. Needs to see an ostomy nurse at [facility] [place]. (2) Anemia due to GI blood loss: Status: Acute Assessment and plan: As above (3) Elevated troponin: Status: Acute Assessment and plan: Agree that this is Demand ischemia secondary to SVT, anemia. Will obtain an echo. (4) Pacemaker: Status: Chronic Assessment and plan: Functioning well per monitor. F/u as outpatient. ?indication. (5) Elevated serum creatinine: Status: Acute Assessment and plan: Will monitor with IV hydration/blood transfusion. (6) Cirrhosis: Assessment and plan: As above. Obtain US abdomen and MRA to assess variceal status. (7) CKD (chronic kidney disease), stage III: Assessment and plan: Cr of 2.7. Will continue to try to optimize hydration status, HR, anemia. (8) Hypertension: Assessment and plan: BPs actually low. Continue metoprolol with holding parameters. (9) Ischemic neuropathy of foot: Assessment and plan: As above. Continue to try to optimize transfusion. (10) CONTRERAS (nonalcoholic steatohepatitis): Assessment and plan: Resulting in cirrhosis. As above. (11) PAD (peripheral artery disease): Assessment and plan: Would not start antiplatelet therapy given bleeding (12) Paroxysmal atrial fibrillation: Assessment and plan: Paroxysmal SVT/?Aflutter/Afib. Optimize volume. S/p pacemaker. Continue BB with holding parameters. (13) DVT prophylaxis: Status: Acute Assessment and plan: SCDs. Hold chemical DVT ppx in light of recurrent bleeding from ostomy (14) Discharge planning issues: Status: Acute Assessment and plan: DNR/DNI, per my conversation with the patient. Keep in ICU. Total Critical Care Time [address] Rajan. Subjective Subjective Interval history since last seen: Ms Bridges did not have any bleeding overnight, but then did have bloody liquid output through the ostomy estimated to be >650 cc. Her MAPs dipped down to 48-51. She was asymptomatic, though her suggests that perhaps she was dizzy. Dr Rajan has just finished suturing off a bleeding vessel when I came to see the patient. The patient denied dizziness, chest pain,shortness of breath, nausea, abodminal pain at the time of me talking to her. Overnight, became hypotensive and required IV fluids. Exam Narrative Exam Narrative: General: Pleasant elderly female who looks pale, is comfortable in bed HEENT: EOMI, MMM Heart: RRR, no m/r/g Lungs: CTAB anteriorly Abdomen: soft; R-sided ileostomy currently being compressed by nursing, does not appear to be actively bleeding currently Extremities: no edema BLEs Objective Last Vital Signs Temp 36.2 C L 04/26/23 12:40 Pulse 60 04/26/23 12:40 Resp 16 04/26/23 12:40 BP 97/42 L 04/26/23 12:40 Pulse Ox 95 04/26/23 12:40 Laboratory Results - last 24 hr 04/24/23 04/25/23 04/25/23 17:34 13:33 13:33 WBC RBC Hgb Hct MCV MCH MCHC RDW Plt Count MPV Immature Gran % Neutrophils % Lymphocytes % Monocytes % Eosinophils % Basophils % Nucleated RBC % Absolute Neutrophils Absolute Lymphocytes Absolute Monocytes Absolute Eosinophils Absolute Basophils RBC Morphology VBG pH VBG pCO2 VBG pO2 VBG HCO3 VBG Total CO2 VBG O2 Saturation VBG Base Excess VBG Lactate Sodium Potassium Chloride Carbon Dioxide Anion Gap BUN Creatinine Est GFR (CKD-EPI 2020) Glucose Calcium Magnesium 1.6 L Troponin I 253 H* Add-On Test Request Patient ABO/Rh A Positive Antibody Screen POSITIVE Antibody Identification Anti-K Crossmatch See Detail 04/25/23 04/25/23 04/26/23 18:55 Unknown 05:40 WBC RBC Hgb 10.2 L Hct 30.4 L MCV MCH MCHC RDW Plt Count MPV Immature Gran % Neutrophils % Lymphocytes % Monocytes % Eosinophils % Basophils % Nucleated RBC % Absolute Neutrophils Absolute Lymphocytes Absolute Monocytes Absolute Eosinophils Absolute Basophils RBC Morphology VBG pH VBG pCO2 VBG pO2 VBG HCO3 VBG Total CO2 VBG O2 Saturation VBG Base Excess VBG Lactate Sodium 140 Potassium 4.8 Chloride 112 H Carbon Dioxide 16.7 L Anion Gap 11.3 H BUN 42 H Creatinine 2.7 H Est GFR (CKD-EPI 2020) 16.66 Glucose 117 H Calcium 8.7 Magnesium 2.8 H Troponin I Add-On Test Request DONE Patient ABO/Rh Antibody Screen Antibody Identification Crossmatch 04/26/23 04/26/23 04/26/23 05:40 07:30 07:30 WBC 9.77 RBC 2.99 L Hgb 8.8 L Hct 27.0 L MCV 90 MCH 29.4 MCHC 32.6 RDW 14.6 Plt Count 86 L MPV 9.6 Immature Gran % 0.8 Neutrophils % 67.7 Lymphocytes % 22.7 Monocytes % 7.8 Eosinophils % 0.5 Basophils % 0.5 Nucleated RBC % 0.0 Absolute Neutrophils 6.61 Absolute Lymphocytes 2.22 Absolute Monocytes 0.76 Absolute Eosinophils 0.05 Absolute Basophils 0.05 RBC Morphology Normal VBG pH VBG pCO2 VBG pO2 VBG HCO3 VBG Total CO2 VBG O2 Saturation VBG Base Excess VBG Lactate 1.1 Sodium Potassium Chloride Carbon Dioxide Anion Gap BUN Creatinine Est GFR (CKD-EPI 2020) Glucose Calcium Magnesium Cancelled Troponin I Add-On Test Request Patient ABO/Rh Antibody Screen Antibody Identification Crossmatch 04/26/23 07:30 WBC RBC Hgb Hct MCV MCH MCHC RDW Plt Count MPV Immature Gran % Neutrophils % Lymphocytes % Monocytes % Eosinophils % Basophils % Nucleated RBC % Absolute Neutrophils Absolute Lymphocytes Absolute Monocytes Absolute Eosinophils Absolute Basophils RBC Morphology VBG pH 7.24 L VBG pCO2 39 L VBG pO2 76 VBG HCO3 17 L VBG Total CO2 16 L VBG O2 Saturation 96 VBG Base Excess -11 L VBG Lactate Sodium Potassium Chloride Carbon Dioxide Anion Gap BUN Creatinine Est GFR (CKD-EPI 2020) Glucose Calcium Magnesium Troponin I Add-On Test Request Patient ABO/Rh Antibody Screen Antibody Identification Crossmatch Multi-Disciplinary Checklist Lines/Tubes CENTRAL LINE: no ARTERIAL LINE: no BRADSHAW: no ENDOTRACHEAL TUBE: no ICU Maintenance GLUCOSE 140-180mg/dL: yes NUTRITION AT GOAL: yes PRESSURE ULCER: no RESTRAINTS: no ANTIBIOTICS(if yes, consider Stewardship): No Social Issues FAMILY UPDATED: yes PT/OT: yes GOALS/DISPOSITION/OPERATIONAL TEST MECHANIC: yes CODE STATUS: DNR/DNI Prophylaxis DVT PROPHYLAXIS: yes GI PROPHYLAXIS: no Time Spent with Patient Time Spent with Patient: 35-49 minutes Time was spent: preparing to see the patient(eg.review tests), obtaining and/or reviewing separately otained hiistory, ordering medications,tests, procedures, referring, communicating with other health career development associate, indepentently interpreting results, counseling the patient and care coordination
--- NOTE | 2023-04-26 14:06 | PDOC.CMIN ---
Date of service: 04/26/23 Time of Service: 14:07 [facility] All Active Problems (Updated 04/25/23 @ 15:36 by Christina Rajan DO) Parastomal ulcer of enterostomy (Acute) Elevated troponin (Acute) 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 (Acute) Abn react-external stoma (Acute) Acute kidney injury superimposed on chronic kidney disease (Acute) Pacemaker (Acute) Elevated serum creatinine (Acute) Hyperkalemia (Acute) Chronic pain in left foot (Acute) Hypercholesterolemia (Acute) Discharge planning issues (Acute) Anemia due to GI blood loss (Acute) Medical History (Updated 04/25/23 @ 15:36 by Christina Rajan DO) Breast cancer Remains RADHA Cirrhosis CKD (chronic kidney disease), stage III Colon cancer H/O malignant neoplasm of colon History of breast cancer Hypertension Ischemic neuropathy of foot CONTRERAS (nonalcoholic steatohepatitis) PAD (peripheral artery disease) Paroxysmal atrial fibrillation Surgical History 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 Park @ [facility] [place], 2015-no recurrence Colostomy Hemicolectomy (06/30/13) Right, due to colonic perforation from adenocarcinoma of transverse colon Social History Smoking/Tobacco Use Status: Never Smoking risk assessment performed?: Yes Alcohol Intake: never Drug use: Never Do you feel safe in your relationship?: Yes
--- NOTE | 2023-04-26 14:45 | PGE_ITS ---
Date of Service Date of service: 04/26/23 Time of Service: 11:00 Assessment and Plan Assessment and plan (1) Parastomal ulcer of enterostomy: Status: Acute Assessment and plan: Patient has some mild hypotension down into the 80s due to the acute blood loss. She will received 2 units of blood. Hold her PT today She can have p.o.'s as tolerated coloplast: [employer] Convex flip [id number] Product [facility]: [facility] Medical: [id number] Maxi - Stoma size: 1 3/8in (35mm) - Full [place] filter Transparent -This is the pouching system patiently currently has on in the hospital Coloplast DEEP convex option Short code: [id number] Product name: [facility]: [id number] Maxi (11in / 655mL) - Stoma size: 10-43mm 3/8 - 1 11/16in - with filter, Transparent -also would be good pouching optiont and probably cheaper (2) Cirrhosis: Assessment and plan: - Patient has had a colostomy since 2012. -She has been having bleeding issues since 2018. She does have a history of cirrhosis. She had a MRI and a CT April 2022 at [facility]. The liver panel committee did review it. She does have significant cirrhosis of the liver. However there is no stigmata of portal hypertension or varices around the stoma. -Because of this bleeding episode again, which is most likely due to excoriation and not varices, but I do think it be worthwhile to repeat the MRI providing her kidneys are able to withstand contrast. We did do a noncontrasted CT on that did not show any varices or portal h ypertension. (3) Elevated troponin: Status: Acute Assessment and plan: - Most likely this was reactive due to acute blood loss. She has known history of CHF. Per her [facility] chart she has never had an echo or I think would be reasonable to do an echo for cardiac evaluation. (4) 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: Status: Acute Assessment and plan: The bleeding vein was ReSound today with Prolene (5) Abn react-external stoma: Status: Acute Assessment and plan: excoraition parastoml skin due to leakage of effluent from poorly fitting bag. clinic will re-order (6) Acute kidney injury superimposed on chronic kidney disease: Status: Acute (7) Pacemaker: Status: Chronic (8) Elevated serum creatinine: Status: Acute (9) Hyperkalemia: Status: Acute (10) Chronic pain in left foot: Status: Acute (11) Anemia due to GI blood loss: Status: Acute (12) Paroxysmal atrial fibrillation: (13) PAD (peripheral artery disease): (14) CONTRERAS (nonalcoholic steatohepatitis): Assessment and plan: This document was created with voice activated software and may contain errors. 120 mins spent with the patient today. (15) Ischemic neuropathy of foot: (16) Hypertension: (17) History of breast cancer: (18) H/O malignant neoplasm of colon: (19) Colon cancer: (20) CKD (chronic kidney disease), stage III: (21) Breast cancer: Subjective Subjective Interval history since last seen: Patient started bleeding from her stoma again this morning. She has had about 800 cc out mixed blood and fluid in total. When I took her colostomy appliance down it was the same area that was bleeding. TXA soaked sponges were used to apply pressure. A stitch of 2-0 Prolene was placed through this area to control bleeding pressure is held again and there is no bleeding noted. A new Coloplast 35mm colostomy bag was applied. A separate piece of DuoDERM was placed to cover the peristomal skin and this was reinforced with additional strips of DuoDERM thin. The peristomal skin was prepped with skin prep and ostomy paste was applied prior to placing the appliance again she has excoriation from the 4 to 7 o'clock position most likely from leakage of the ileostomy because her stoma is flush to inverted. Hopefully using a convex pouching system can improve this. I discussed with Annamarie and she is amenable to us ordering new bags from [employer] for her inverted stoma. We used a convex pouching system yesterday and this did not leak. Patient has some mild hypotension down into the 80s due to the acute blood loss. She was received 2 units of blood. Hold her PT today She can have p.o.'s as tolerated will like into convex pouching options for lemos on thursday should go see stoma RN at [facility] [place] pt would be interested in seeing IR at [facility] [place] if varices demonstrated on MRI type and screen repeat on thursday TXA to bedisde in case of re-bleed no asa/nsaids/heprain or lovnox. tylenol is ok start PT in am echo trend trops Objective Last Vital Signs Temp 36.1 C L 04/26/23 13:00 Pulse 60 04/26/23 13:00 Resp 17 04/26/23 13:00 BP 97/44 L 04/26/23 13:00 Pulse Ox 96 04/26/23 13:00 Laboratory Results - last 24 hr 04/24/23 04/25/23 04/25/23 17:34 13:33 18:55 WBC RBC Hgb 10.2 L Hct 30.4 L MCV MCH MCHC RDW Plt Count MPV Immature Gran % Neutrophils % Lymphocytes % Monocytes % Eosinophils % Basophils % Nucleated RBC % Absolute Neutrophils Absolute Lymphocytes Absolute Monocytes Absolute Eosinophils Absolute Basophils RBC Morphology VBG pH VBG pCO2 VBG pO2 VBG HCO3 VBG Total CO2 VBG O2 Saturation VBG Base Excess VBG Lactate Sodium Potassium Chloride Carbon Dioxide Anion Gap BUN Creatinine Est GFR (CKD-EPI 2020) Glucose Calcium Magnesium 1.6 L Patient ABO/Rh A Positive Antibody Screen POSITIVE Antibody Identification Anti-K Crossmatch See Detail 04/26/23 04/26/23 04/26/23 05:40 05:40 07:30 WBC 9.77 RBC 2.99 L Hgb 8.8 L Hct 27.0 L MCV 90 MCH 29.4 MCHC 32.6 RDW 14.6 Plt Count 86 L MPV 9.6 Immature Gran % 0.8 Neutrophils % 67.7 Lymphocytes % 22.7 Monocytes % 7.8 Eosinophils % 0.5 Basophils % 0.5 Nucleated RBC % 0.0 Absolute Neutrophils 6.61 Absolute Lymphocytes 2.22 Absolute Monocytes 0.76 Absolute Eosinophils 0.05 Absolute Basophils 0.05 RBC Morphology Normal VBG pH VBG pCO2 VBG pO2 VBG HCO3 VBG Total CO2 VBG O2 Saturation VBG Base Excess VBG Lactate Sodium 140 Potassium 4.8 Chloride 112 H Carbon Dioxide 16.7 L Anion Gap 11.3 H BUN 42 H Creatinine 2.7 H Est GFR (CKD-EPI 2020) 16.66 Glucose 117 H Calcium 8.7 Magnesium 2.8 H Cancelled Patient ABO/Rh Antibody Screen Antibody Identification Crossmatch 04/26/23 04/26/23 07:30 07:30 WBC RBC Hgb Hct MCV MCH MCHC RDW Plt Count MPV Immature Gran % Neutrophils % Lymphocytes % Monocytes % Eosinophils % Basophils % Nucleated RBC % Absolute Neutrophils Absolute Lymphocytes Absolute Monocytes Absolute Eosinophils Absolute Basophils RBC Morphology VBG pH 7.24 L VBG pCO2 39 L VBG pO2 76 VBG HCO3 17 L VBG Total CO2 16 L VBG O2 Saturation 96 VBG Base Excess -11 L VBG Lactate 1.1 Sodium Potassium Chloride Carbon Dioxide Anion Gap BUN Creatinine Est GFR (CKD-EPI 2020) Glucose Calcium Magnesium Patient ABO/Rh Antibody Screen Antibody Identification Crossmatch Time Spent with Patient Time Spent with Patient: >50 minutes Time was spent: preparing to see the patient(eg.review tests), obtaining and/or reviewing separately otained hiistory, ordering medications,tests, procedures, referring, communicating with other health child care leader, indepentently interpreting results, counseling the patient, care coordination and other
[2023-04-26] MEDS: OCTREOTIDE 250 MCG in Normal Saline 245 ML 50 MCG IV ×2 (15:08→20:22)
[2023-04-26] MEDS: diphenhydrAMINE 25 MG CAP PO (18:26)
[2023-04-26] MEDS: Acetaminophen 325 MG TAB 650 MG PO (18:27)
[2023-04-26 20:21] LABS: HCT 37.2 % (36.0-46.0); HGB 12.2 g/dL (11.2-15.7)
[2023-04-26] MEDS: Metoprolol CR 50 MG TABCR PO (20:23)
[2023-04-27] VITALS (100 sets, daily range): BP systolic 88–114; BP diastolic 38–53; PULSE 60–79; RESP 12–30; TEMP 36.7–37.8; O2SAT 93–98
[2023-04-27] MEDS: OCTREOTIDE 250 MCG in Normal Saline 245 ML 50 MCG IV ×4 (00:27→16:09)
[2023-04-27 06:37] LABS: Abs Immature Grans 0.04 10^3/uL (0.0-0.06); Absolute Basophil Count 0.03 10^3/uL (0.0-0.2); Absolute Eosinophil Count 0.11 10^3/uL (0.0-0.7); Absolute Lymphocyte Count 1.25 10^3/uL (1.2-3.4); Absolute Monocyte Count 0.59 10^3/uL (0.1-0.8); Absolute Neutrophil Count 4.43 10^3/uL (1.2-6.7); Basophils % 0.5; Eosinophils % 1.7; HCT 30.4 % (36.0-46.0); HGB 10.1 g/dL (11.2-15.7); Immature Grans % 0.6; Lymphocytes % 19.4; MCH 29.4 pg (27.0-33.0); MCHC 33.2 % (32.0-36.0); MCV 88 fL (80-95); MPV 9.8 fL (8.0-11.0); Monocytes % 9.1; Neutrophils % 68.7; Nucleated RBC 0.3 % (0.0-0.3); RBC 3.44 10^6/uL (3.93-5.22); RDW 14.6 % (11.7-14.6); RDW-SD 46.6 fL; WBC 6.45 10^3/uL (4.4-10.8)
[2023-04-27 07:00] LABS: Platelet Count 63 10^3/uL (130-400)
[2023-04-27 07:11] LABS: Anion Gap 11.5 mmol/L (3-11); BUN 43 mg/dL (7-18); CO2 16.5 mmol/L (21.0-32.0); CREATININE 2.9 mg/dL (0.55-1.02); Calcium 8.4 mg/dL (8.5-10.1); Chloride 111 mmol/L (98-107); Estimated GFR 15.29 (mL/min/1.73m2); Glucose 143 mg/dL (74-106); Magnesium 2.2 mg/dL (1.8-2.4); Potassium 5.4 mmol/L (3.5-5.1); Sodium 139 mmol/L (136-145); Troponin I 60 ng/L (<or=60)
[2023-04-27] MEDS: Sodium Zirconium Cyclosilicate 10 GM PKT PO ×3 (08:27→22:06)
[2023-04-27 08:52] LABS: Lab Add On Test DONE
[2023-04-27 09:26] LABS: Procalcitonin 0.3 ng/mL
--- NOTE | 2023-04-27 09:33 | PHACLINREV_ITS ---
Pharmacy Admission Review - Admission Clinical Review (Last Updated 04/24/23 @ 21:36 by Christina Rajan DO) DVT prophylaxis (Acute) Parastomal ulcer of enterostomy (Acute) Elevated troponin (Acute) 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 (Acute) Abn react-external stoma (Acute) Acute kidney injury superimposed on chronic kidney disease (Acute) Elevated serum creatinine (Acute) Hyperkalemia (Acute) Chronic pain in left foot (Acute) Hypercholesterolemia (Acute) Discharge planning issues (Acute) Anemia due to GI blood loss (Acute) No Known Allergies Allergy (Unverified 04/24/23 00:09) Resuscitation Status DNR/DNI Height 4 ft 11 in Weight 73.3 kg - Comments Comments/Follow Ups: Hx bleeding from ileostomy in the past (done in 2012), A- fib with pacemaker, rec'd 4 units of blood, Hx Cirrhosis (non-alcoholic), CKD stage-3, HTN, H/o colon CA. Monitor H/H;currently 10.1/30.4, Plt 63, Electrolytes; trending Potassium levels s/p Lokelma. Octreotide infusion running continuously @ 50ml/hr - Renal Dosing Renal Dosing: BUN 43 mg/dL (7-18) H 04/27/23 05:36 Creatinine 2.9 mg/dL (0.55-1.02) H 04/27/23 05:36 Medications needing adjustments: Reviewed (CrCl~15.3ml/min, Stage-3 CKD, baseline SCR 2-3, Low dose Fluconazole) - Anticoagulation Anticoagulation: Hgb 10.1 g/dL (11.2-15.7) L D 04/27/23 05:36 Hgb Cancelled 04/27/23 05:36 Hct 30.4 % (36.0-46.0) L 04/27/23 05:36 Hct Cancelled 04/27/23 05:36 Plt Count 63 10^3/uL (130-400) L 04/27/23 05:36 Creatinine 2.9 mg/dL (0.55-1.02) H 04/27/23 05:36 DVT Prophylaxis: N/A (hold all potential bleeding meds at this time) - Opiate Usage Evaluate Pain Scale/Pains Meds: N/A - Relevant Labs Sodium 139 mmol/L (136-145) 04/27/23 05:36 Potassium 5.4 mmol/L (3.5-5.1) H 04/27/23 05:36 Chloride 111 mmol/L (98-107) H 04/27/23 05:36 Magnesium 2.2 mg/dL (1.8-2.4) 04/27/23 05:36 Electrolytes, C-Reactive P, ESR: Reviewed (Lokelma x 7 total doses ordered for elevated Potassium) - DM Control DM Control: Glucose 143 mg/dL (74-106) H 04/27/23 05:36 Hemoglobin A1c 5.3 % (<5.7) 04/25/23 06:12 DM Control: N/A - Cardiac Review Cardiac Review: Troponin I 60 ng/L (<or=60) 04/27/23 05:36 Troponin I Cancelled 04/27/23 05:36 BP, HR, EF%: Reviewed (Chest pain at home, dizzy, SOB..trended Troponins, demand ischemia. BP's soft, Metoprolol has hold parameters) - Qtc Review QTc: Reviewed (EKG report not avail) - Home Meds Home Med List reviewed: Reviewed Relevent Home Meds Not ordered & why?: Aleve...held for acute bleed
[2023-04-27] MEDS: Gabapentin 300 MG CAP PO (10:39)
[2023-04-27] MEDS: Fluconazole 100 MG TAB PO (10:39)
[2023-04-27] MEDS: Nystatin POWDER 15 GM JAR TP ×2 (10:39→20:40)
[2023-04-27] MEDS: Acetaminophen 500 MG TAB 1000 MG PO (11:38)
[2023-04-27 12:22] LABS: Potassium 5.2 mmol/L (3.5-5.1)
--- NOTE | 2023-04-27 17:00 | W.PM.PROGNOT ---
Date of Service Date of service: 04/27/23 Time of Service: 17:00 Assessment and Plan Assessment and plan (1) 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: Status: Acute Assessment and plan: Recurrent. No bleeding today. Continue octreotide. Await US. Not a candidate for an MRI at our facility due to having a pacemaker. Discussed with Dr Rajan: may benefit from an IR sclerotherapy for the bleeding vessel should bleeding recur. We will have IR take a look at her case once we have imaging done. 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 The patient's kidney function would not permit a contrast study (either CT or MRI). May still be able to get some information from a noncontrast MRA or an ultrasound. Noncontrast MRA would have to be done at a different facility where MRIs are compatible with pacemakers. S/p xfusion of 2 units of pRBCS today with HgB improving accordingly. Needs to see an ostomy nurse at [facility] [place]. (2) Anemia due to GI blood loss: Status: Acute Assessment and plan: As above (3) Elevated troponin: Status: Acute Assessment and plan: Agree that this is Demand ischemia secondary to SVT, anemia. Await echo. (4) Pacemaker: Status: Chronic Assessment and plan: Functioning well per monitor. F/u as outpatient. ?indication. (5) Elevated serum creatinine: Status: Acute Assessment and plan: Will monitor with IV hydration/blood transfusion. (6) Cirrhosis: Assessment and plan: As above. Obtain US abdomen to assess portal hypertension and variceal status. (7) CKD (chronic kidney disease), stage III: Assessment and plan: Cr of 2.9. Will continue to try to optimize hydration status, HR, anemia. (8) Hypertension: Assessment and plan: BPs actually low. Continue metoprolol with holding parameters. (9) Ischemic neuropathy of foot: Assessment and plan: As above. Continue to try to optimize Perfusion. (10) CONTRERAS (nonalcoholic steatohepatitis): Assessment and plan: Resulting in cirrhosis. As above. (11) PAD (peripheral artery disease): Assessment and plan: Would not start antiplatelet therapy given bleeding (12) Paroxysmal atrial fibrillation: Assessment and plan: Paroxysmal SVT/?Aflutter/Afib. Optimize volume. S/p pacemaker. Continue BB with holding parameters. (13) DVT prophylaxis: Status: Acute Assessment and plan: SCDs. Hold chemical DVT ppx in light of recurrent bleeding from ostomy (14) Discharge planning issues: Status: Acute Assessment and plan: DNR/DNI, per my conversation with the patient. Keep in ICU. Discussed with Dr Rajan. Subjective Subjective Interval history since last seen: I feel cold. No bleeding since yesterday afternoon. Denies pain, dizziness, shortness of breath, cough, dysuria. T max 37.8. Exam Narrative Exam Narrative: General: Pleasant elderly female who looks pale, is comfortable in bed HEENT: EOMI, MMM Heart: RRR, no m/r/g Lungs: CTAB anteriorly Abdomen: soft; R-sided ileostomy with light output, no blood. Extremities: no edema BLEs Objective Last Vital Signs Temp 37.6 C H 04/27/23 16:00 Pulse 61 04/27/23 16:00 Resp 20 04/27/23 16:00 BP 104/51 L 04/27/23 12:13 Pulse Ox 94 04/27/23 16:00 Laboratory Results - last 24 hr 04/26/23 04/27/23 04/27/23 20:15 05:36 05:36 WBC RBC Hgb 12.2 D Hct 37.2 MCV MCH MCHC RDW Plt Count MPV Immature Gran % Neutrophils % Lymphocytes % Monocytes % Eosinophils % Basophils % Nucleated RBC % Absolute Neutrophils Absolute Lymphocytes Absolute Monocytes Absolute Eosinophils Absolute Basophils Sodium 139 Potassium 5.4 H Chloride 111 H Carbon Dioxide 16.5 L Anion Gap 11.5 H BUN 43 H Creatinine 2.9 H Est GFR (CKD-EPI 2020) 15.29 Glucose 143 H Calcium 8.4 L Magnesium 2.2 Troponin I Cancelled 60 Procalcitonin Add-On Test Request Patient ABO/Rh Antibody Screen 04/27/23 04/27/23 04/27/23 05:36 05:36 05:36 WBC 6.45 RBC 3.44 L Hgb 10.1 L D Cancelled Hct 30.4 L Cancelled MCV 88 MCH 29.4 MCHC 33.2 RDW 14.6 Plt Count 63 L MPV 9.8 Immature Gran % 0.6 Neutrophils % 68.7 Lymphocytes % 19.4 Monocytes % 9.1 Eosinophils % 1.7 Basophils % 0.5 Nucleated RBC % 0.3 Absolute Neutrophils 4.43 Absolute Lymphocytes 1.25 Absolute Monocytes 0.59 Absolute Eosinophils 0.11 Absolute Basophils 0.03 Sodium Potassium Chloride Carbon Dioxide Anion Gap BUN Creatinine Est GFR (CKD-EPI 2020) Glucose Calcium Magnesium Troponin I Procalcitonin Add-On Test Request Patient ABO/Rh A Positive Antibody Screen NEGATIVE 04/27/23 04/27/23 04/27/23 05:36 05:36 12:01 WBC RBC Hgb Hct MCV MCH MCHC RDW Plt Count MPV Immature Gran % Neutrophils % Lymphocytes % Monocytes % Eosinophils % Basophils % Nucleated RBC % Absolute Neutrophils Absolute Lymphocytes Absolute Monocytes Absolute Eosinophils Absolute Basophils Sodium Potassium 5.2 H Chloride Carbon Dioxide Anion Gap BUN Creatinine Est GFR (CKD-EPI 2020) Glucose Calcium Magnesium Troponin I Procalcitonin 0.3 Add-On Test Request DONE Patient ABO/Rh Antibody Screen Multi-Disciplinary Checklist Lines/Tubes CENTRAL LINE: no BRADSHAW: no ENDOTRACHEAL TUBE: no ICU Maintenance GLUCOSE 140-180mg/dL: yes NUTRITION AT GOAL: yes PRESSURE ULCER: no RESTRAINTS: no ANTIBIOTICS(if yes, consider Stewardship): No Social Issues FAMILY UPDATED: yes PT/OT: yes GOALS/DISPOSITION/AIR VALUE TESTER: yes CODE STATUS: DNR/DNI Prophylaxis DVT PROPHYLAXIS: yes GI PROPHYLAXIS: no Time Spent with Patient Time Spent with Patient: 35-49 minutes Time was spent: preparing to see the patient(eg.review tests), obtaining and/or reviewing separately otained hiistory, ordering medications,tests, procedures, referring, communicating with other health care program resident, indepentently interpreting results, counseling the patient and care coordination
--- NOTE | 2023-04-27 18:03 | PGE_ITS ---
Date of Service Date of service: 04/27/23 Time of Service: 12:00 Assessment and Plan Assessment and plan (1) Parastomal ulcer of enterostomy: Status: Acute Assessment and plan: -needs to f/u WOC RN -will order new bags on thursday (2) 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: Status: Acute Assessment and plan: stable for the last 24 hrs (3) Abn react-external stoma: Status: Acute (4) Acute kidney injury superimposed on chronic kidney disease: Status: Acute (5) Pacemaker: Status: Chronic (6) Elevated serum creatinine: Status: Acute (7) Chronic pain in left foot: Status: Acute (8) Hypercholesterolemia: Status: Acute (9) Anemia due to GI blood loss: Status: Acute Assessment and plan: stable for 24 hrs (10) Cirrhosis: Assessment and plan: cannot due MRI due to pacer US in am no varix in 2021 (11) CKD (chronic kidney disease), stage III: (12) Hypertension: (13) Ischemic neuropathy of foot: (14) CONTRERAS (nonalcoholic steatohepatitis): (15) PAD (peripheral artery disease): (16) Paroxysmal atrial fibrillation: Assessment and plan: B Blockers (17) At high risk for skin breakdown: Status: Acute Assessment and plan: -reposition q2 PT in am Subjective Subjective Interval history since last seen: Pt feels cold. No fevers. no headaches. No CP or SOB. no productive cough. no dysuria. no leg pain or swelling. Not much appetite. Has not been OOB for >24 hrs due to hypotension yesterday. No bleeding in past 24 hrs. Pt is does not have any appetite today. Good output from ostomy and no blood. Nursing stated that buttocks are uniformly red that blanches, but no breakdown. high risk for breakdown. No PT today due to holiday. Exam Const Other: L; CTA bb/l H: rate controlled and sinus abdom- ostomy pink and productive. no blood. appliance not removed. no edema Objective Last Vital Signs Temp 37.6 C H 04/27/23 16:00 Pulse 61 04/27/23 16:00 Resp 20 04/27/23 16:00 BP 104/51 L 04/27/23 12:13 Pulse Ox 94 04/27/23 16:00 Laboratory Results - last 24 hr 04/26/23 04/27/23 04/27/23 20:15 05:36 05:36 WBC RBC Hgb 12.2 D Hct 37.2 MCV MCH MCHC RDW Plt Count MPV Immature Gran % Neutrophils % Lymphocytes % Monocytes % Eosinophils % Basophils % Nucleated RBC % Absolute Neutrophils Absolute Lymphocytes Absolute Monocytes Absolute Eosinophils Absolute Basophils Sodium 139 Potassium 5.4 H Chloride 111 H Carbon Dioxide 16.5 L Anion Gap 11.5 H BUN 43 H Creatinine 2.9 H Est GFR (CKD-EPI 2020) 15.29 Glucose 143 H Calcium 8.4 L Magnesium 2.2 Troponin I Cancelled 60 Procalcitonin Add-On Test Request Patient ABO/Rh Antibody Screen 04/27/23 04/27/23 04/27/23 05:36 05:36 05:36 WBC 6.45 RBC 3.44 L Hgb 10.1 L D Cancelled Hct 30.4 L Cancelled MCV 88 MCH 29.4 MCHC 33.2 RDW 14.6 Plt Count 63 L MPV 9.8 Immature Gran % 0.6 Neutrophils % 68.7 Lymphocytes % 19.4 Monocytes % 9.1 Eosinophils % 1.7 Basophils % 0.5 Nucleated RBC % 0.3 Absolute Neutrophils 4.43 Absolute Lymphocytes 1.25 Absolute Monocytes 0.59 Absolute Eosinophils 0.11 Absolute Basophils 0.03 Sodium Potassium Chloride Carbon Dioxide Anion Gap BUN Creatinine Est GFR (CKD-EPI 2020) Glucose Calcium Magnesium Troponin I Procalcitonin Add-On Test Request Patient ABO/Rh A Positive Antibody Screen NEGATIVE 04/27/23 04/27/23 04/27/23 05:36 05:36 12:01 WBC RBC Hgb Hct MCV MCH MCHC RDW Plt Count MPV Immature Gran % Neutrophils % Lymphocytes % Monocytes % Eosinophils % Basophils % Nucleated RBC % Absolute Neutrophils Absolute Lymphocytes Absolute Monocytes Absolute Eosinophils Absolute Basophils Sodium Potassium 5.2 H Chloride Carbon Dioxide Anion Gap BUN Creatinine Est GFR (CKD-EPI 2020) Glucose Calcium Magnesium Troponin I Procalcitonin 0.3 Add-On Test Request DONE Patient ABO/Rh Antibody Screen Time Spent with Patient Time Spent with Patient: 35-49 minutes Time was spent: preparing to see the patient(eg.review tests), obtaining and/or reviewing separately otained hiistory, ordering medications,tests, procedures, referring, communicating with other health child care coordinator, indepentently interpreting results, counseling the patient and care coordination
[2023-04-27] MEDS: Metoprolol CR 50 MG TABCR PO (20:49)
[2023-04-28] VITALS (26 sets, daily range): BP systolic 103–118; BP diastolic 34–89; PULSE 56–85; RESP 9–23; TEMP 36.7–37.7; O2SAT 93–99
[2023-04-28] MEDS: OCTREOTIDE 250 MCG in Normal Saline 245 ML 50 MCG IV ×2 (01:16→06:17)
[2023-04-28] MEDS: Sodium Zirconium Cyclosilicate 10 GM PKT PO (06:16)
[2023-04-28 06:54] LABS: Abs Immature Grans 0.06 10^3/uL (0.0-0.06); Absolute Basophil Count 0.04 10^3/uL (0.0-0.2); Absolute Eosinophil Count 0.23 10^3/uL (0.0-0.7); Absolute Lymphocyte Count 1.35 10^3/uL (1.2-3.4); Absolute Monocyte Count 0.81 10^3/uL (0.1-0.8); Absolute Neutrophil Count 6.26 10^3/uL (1.2-6.7); Basophils % 0.5; Eosinophils % 2.6; HGB 9.7 g/dL (11.2-15.7); Immature Grans % 0.7; Lymphocytes % 15.4; MCH 29.8 pg (27.0-33.0); MCHC 33.4 % (32.0-36.0); MCV 89 fL (80-95); MPV 9.4 fL (8.0-11.0); Monocytes % 9.3; Neutrophils % 71.5; RBC 3.25 10^6/uL (3.93-5.22); RDW 14.5 % (11.7-14.6); RDW-SD 46.3 fL; WBC 8.75 10^3/uL (4.4-10.8)
[2023-04-28 07:05] LABS: Anion Gap 9.8 mmol/L (3-11); BUN 37 mg/dL (7-18); CO2 19.2 mmol/L (21.0-32.0); CREATININE 2.4 mg/dL (0.55-1.02); Calcium 8.1 mg/dL (8.5-10.1); Chloride 109 mmol/L (98-107); Estimated GFR 19.19 (mL/min/1.73m2); Glucose 142 mg/dL (74-106); Magnesium 1.7 mg/dL (1.8-2.4); Sodium 138 mmol/L (136-145)
[2023-04-28 07:11] LABS: Diff Comment Diff Reviewed; Platelet Count 78 10^3/uL (130-400); RBC Morphology Normal
--- NOTE | 2023-04-28 07:52 | W.PM.PROGNOT ---
Date of Service Date of service: 04/28/23 Time of Service: 07:53 Assessment and Plan Assessment and plan (1) Parastomal ulcer of enterostomy: Status: Acute Assessment and plan: -needs to f/u WOC RN -will order new bags on thursday (2) 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: Status: Acute Assessment and plan: stable for the last 48 hrs Surgery will sign off. Patient seen this afternoon. Agree with above note. Patient is doing well. No more bleeding OK to D/C Home (3) Abn react-external stoma: Status: Acute (4) Acute kidney injury superimposed on chronic kidney disease: Status: Acute (5) Pacemaker: Status: Chronic (6) Elevated serum creatinine: Status: Acute (7) Chronic pain in left foot: Status: Acute (8) Hypercholesterolemia: Status: Acute (9) Anemia due to GI blood loss: Status: Acute Assessment and plan: stable for 24 hrs (10) Cirrhosis: Assessment and plan: cannot due MRI due to pacer US in am no varix in 2021 (11) CKD (chronic kidney disease), stage III: (12) Hypertension: (13) Ischemic neuropathy of foot: (14) CONTRERAS (nonalcoholic steatohepatitis): (15) PAD (peripheral artery disease): (16) Paroxysmal atrial fibrillation: Assessment and plan: B Blockers (17) At high risk for skin breakdown: Status: Acute Assessment and plan: -reposition q2 PT in am Subjective Subjective Interval history since last seen: Arrived with Ms. Bridges getting out of bed, sit in the chair. Denies having any bleeding from her stoma. She is eager to return home. Exam Const General: cooperative, healthy appearing and comfortable Orientation: alert and oriented x3 Resp Effort & Inspection: normal respiratory effort, no audible wheezes and no cough GI Other: Ileostomy-copious amounts of light brown stool. No bleeding or blood noted in the bag around the stoma. Objective Last Vital Signs Temp 37.7 C H 04/28/23 07:38 Pulse 62 04/28/23 07:38 Resp 19 04/28/23 07:38 BP 118/49 L 04/28/23 07:38 Pulse Ox 95 04/28/23 07:38 Laboratory Results - last 24 hr 04/27/23 04/27/23 04/27/23 05:36 05:36 12:01 WBC RBC Hgb Hct MCV MCH MCHC RDW Plt Count MPV Immature Gran % Neutrophils % Lymphocytes % Monocytes % Eosinophils % Basophils % Nucleated RBC % Absolute Neutrophils Absolute Lymphocytes Absolute Monocytes Absolute Eosinophils Absolute Basophils RBC Morphology Sodium Potassium 5.2 H Chloride Carbon Dioxide Anion Gap BUN Creatinine Est GFR (CKD-EPI 2020) Glucose Calcium Magnesium Procalcitonin 0.3 Add-On Test Request DONE 04/28/23 04/28/23 06:14 06:14 WBC 8.75 RBC 3.25 L Hgb 9.7 L Hct 29.0 L MCV 89 MCH 29.8 MCHC 33.4 RDW 14.5 Plt Count 78 L MPV 9.4 Immature Gran % 0.7 Neutrophils % 71.5 Lymphocytes % 15.4 Monocytes % 9.3 Eosinophils % 2.6 Basophils % 0.5 Nucleated RBC % 0.0 Absolute Neutrophils 6.26 Absolute Lymphocytes 1.35 Absolute Monocytes 0.81 H Absolute Eosinophils 0.23 Absolute Basophils 0.04 RBC Morphology Normal Sodium 138 Potassium 4.0 D Chloride 109 H Carbon Dioxide 19.2 L Anion Gap 9.8 BUN 37 H Creatinine 2.4 H Est GFR (CKD-EPI 2020) 19.19 Glucose 142 H Calcium 8.1 L Magnesium 1.7 L Procalcitonin Add-On Test Request Time Spent with Patient Time Spent with Patient: <25 minutes Time was spent: preparing to see the patient(eg.review tests), obtaining and/or reviewing separately otained hiistory and indepentently interpreting results
--- NOTE | 2023-04-28 08:00 | DI.US_ITS ---
APPROVED REPORT EXAM: Comprehensive 2D, Doppler, and color-flow Echocardiogram Patient Location: In-Patient Room/Bed: 220 Saw Operator: Armin Appiah RDMS, RVT Indications: SVT, elevated troponin Other Information Study Quality: Adequate. Technically limited study due to inability to position patient exam done sup ine. Conclusion Normal left ventricular wall thickness and chamber size. Ejection fraction is 55 to 60%. Wall motio n is normal Right ventricle is grossly normal in size and systolic function Left atrium is mildly dilated. Right atrial size is normal Device lead noted in the right heart Aortic valve is sclerotic and trileaflet with moderate stenosis. Peak gradient is 39, mean 22 mmHg. Calculated aortic valve area is 1.2 cm??. There is no aortic regurgitation Mild mitral annular calcification, trace mitral regurgitation Normal tricuspid valve with moderate regurgitation. Estimated right ventricular systolic pressure is 31 mmHg Wall motion Left Ventricle The left ventricle is normal size. The left ventricular systolic function is normal. The left ventric ular ejection fraction is within the normal range. There is normal left ventricular wall thickness. T here is normal LV segmental wall motion. There is no ventricular septal defect visualized. LVEF is 55 -60%. Right Ventricle Right ventricle is grossly normal in size. Right ventricular systolic function is grossly normal. The RVSP is 31.1 mmHg. Pacemaker lead is present in the right ventricle. Atria Left atrium is mildly dilated. The right atrium size is normal. The interatrial septum is intact wit h no evidence for an atrial septal defect. Aortic Valve Aortic valve is sclerotic and trileaflet Moderate aortic stenosis. Peak aortic valve gradient is 39.2 mmHg. Highest mean aortic valve gradient is 22.5 mmHg. Calculated MIKO by the continuity equation is 1.22 cm2. No aortic regurgitation is present. Mitral Valve Mild mitral annular calcification. No evidence of mitral valve stenosis. Trace mitral regurgitation . Tricuspid Valve The tricuspid valve is normal in structure. There is no tricuspid valve stenosis. Moderate tricuspid regurgitation. Pulmonic Valve The pulmonary valve is normal in structure. There is no pulmonic valvular stenosis. There is no pulmo nichol valvular regurgitation. Great Vessels The aortic root is normal in size. Ascending aorta is not well visualized. IVC is normal in size and collapses >50% with inspiration. Pericardium There is no pericardial effusion. 2D Dimensions IVSD d PLAX 0.81 cm F: 0.6-1.0 LV Vol A2C d MOD 66.1 mL LVPW d PLAX 0.87 cm F: 0.6 - 1.0 LV Vol A4C d MOD 84.1 mL LVID d PLAX 4.56 cm F: 3.8 - 5.2 LA vol/ BSA A2C s A-L 29.4 mL/m2 LVDs 3.20 cm F: 2.2 - 3.5 LA vol/ BSA A4C s A-L 40.4 mL/m2 Ao Root d 2.76 cm F: 2.7 - 3.3 LA Vol/ BSA Biplane s A-L 36.2 mL/m2 RA Area A4C 14.23 cm2 LA Area A4C s MOD 22.27 cm2 RA Vol/ BSA A4C s A-L 19.8 mL/m2 LA Area A2C s MOD 18.07 cm2 LV EF Teichholz 56.7 % LV EF A4C MOD 57.5 % LVEF (Merida's) 55.88 % F: 54 - 74 LV EF A2C MOD 60.7 % LV Volume 60.52 mL F: 46 - 106 LV EF Biplane MOD 55.9 % LV Volume Index 36.02 mL/m2 F: 29 - 61 SV 42.42 mL LV Vol Biplane MOD 75.9 mL SV Index 25.22 mL/m2 FS 29.60 % M-Mode TAPSE 2.50 cm (M/F) >1.7 LV Diastology MV E' medial 0.076 (>0.07 m/s) E/A Ratio 1.2 LV E/e MED 12.65 (<14) MV E Vmax 0.96 (0.4-1.3 m/s) MV E' lateral 0.095 (>0.1 m/s) MV A Vmax 0.80 (0.4-1.3 m/s) LV E/e LAT 10.05 (<14) MV E/A Ratio 1.13 MV E/E' medial 12.66 MV E/E' lateral 10.06 Aortic Valve LVOT Area 3.24 cm2 AoV Area Vmax 1.34 cm2 LVOT Vmax 1.29 m/s AoV Area/ BSA (Vmax) 0.80 cm2/m2 LVOT Mean Singh. 0.83 m/s MIKO Mean Singh. 1.22 cm2 LVOT Peak Grad 6.7 mmHg MIKO Mean Singh. Index 0.73 cm2/m2 LVOT Mean Grad 3.3 mmHg LVOT VTI 0.265 m LVOT Diam s 2.00 cm AoV Vmax 3.13 m/s Velocity Ratio 0.41 AoV Mean Singh. 2.21 m/s AoV Peak Grad 39.2 mmHg LVOT SV 86.09 mL AoV Mean Grad 22.5 mmHg AoV VTI 0.636 m AoV Area VTI 1.35 cm2 AoV Area/ BSA (VTI) 0.81 cm/m2 Mitral Valve MV DT 208 (160-240 msec) MV PHT 60 msec MV Area PHT 3.64 cm2 Pulmonary Valve PV Vmax 0.90 (0.5-1.5 m/s) RVOT Peak Gr. 2.08 mmHg PV Peak Grad 3.2 mmHg RVOT Mean Gr. 1.05 mmHg PV Mean Grad 1.5 mmHg RVOT VTI 0.161 m PV VTI 0.174 m RVOT Vmax 0.72 m/s Tricuspid Valve TR Peak Grad 27.1 mmHg TR Vmax 2.60 m/s RA Pressure 4.00 mmHg RVSP (TR) 31.1 mmHg
--- NOTE | 2023-04-28 08:00 | DI.US_ITS ---
Exam(s) US ABDOMEN EXAM: US ABDOMEN CLINICAL HISTORY: cirrhosis, ?portal hypertension/intraabdominal kassi TECHNIQUE: Ultrasound of complete upper abdomen performed using standard protocol. COMPARISON: CT CT CHEST/ABD/PEL WO from 04/24/2023 US US ECHOCARDIOGRAM from 04/28/2023 FINDINGS: There is a small amount of ascites evident. LIVER: Liver has cirrhotic appearance. Were not able to identified the hypodense area seen in the ri ght hepatic lobe on the recent CT scan. No focal hepatic lesions identified. No obvious laceration liver on the ultrasound. No subcapsular hematoma. GALLBLADDER/BILIARY: Gallbladder surgically absent. The common hepatic duct isdilated, measuring 9mm at the level of clay hepatis. PANCREAS: There is no evidence of pancreatic mass nor dilatation of the pancreatic duct. SPLEEN: Spleen size upper normal. No intrasplenic lesions identified. KIDNEYS:Benign cysts in both kidneys noted as seen on recent CT scan. The largest is in the left kid adelaida and measures 6 x 7 cm. No solid renal masses. No calculi. No hydronephrosis. ABDOMINAL AORTA: There is no evidence of abdominal aortic aneurysm. IVC: Normal diameter where visualized. IMPRESSION: 1. Gallbladder surgically absent. Biliary tree is not dilated. 2. Cirrhotic appearing liver. We were not able to identify and hepatic laceration nor other focal h epatic findings. 3. Spleen size upper normal. Bilateral renal cysts. No solid renal masses. DATA REPOSITORY:
[2023-04-28] MEDS: Fluconazole 100 MG TAB PO (08:07)
[2023-04-28] MEDS: Gabapentin 300 MG CAP PO (08:07)
[2023-04-28] MEDS: MAGNESIUM SULFATE 1 GM/100 ML BAG IVPB (08:08)
--- NOTE | 2023-04-28 08:41 | CMPROGNOTE_ITS ---
Date of service: 04/28/23 Time of Service: 08:41 Care Management Progress Note Progress Note Text Progress Note Text: S/O:Annamarie was just finishing with PT when CM met with her. Her Mayur was there at the time and they expressed that they were hopeful that she would be discharged today. Annamarie's ostomy has not shown signs of bleeding today and her H&H has stabilized, although it is a bit lower than yesterday. Annamarie denied the need for services at home. PT did not recommend SNF or home health PT either. CM will follow. A: Annamarie is an 87 year old woman admitted in 04/25/23 with a bleeding colostomy P:Anticipate Annamarie will be discharged home, possibly with new home health services, when medically cleared.She will follow up with her PCP and providers at [facility] [place] and will transport with family. CM will offer support to Annamarie and assess discharge needs.
--- NOTE | 2023-04-28 09:33 | PT.INIE ---
PT Notes <Stefanie Prater, DPT - Last Filed: 04/28/23 09:38> Visit Reasons: Bleeding Colostomy Inpatient Physical Therapy Evaluation Date: 04/28/23 Referring Doctor: Dr. Morillo PT Orders: PT CONSULT: limited ability to ambulate Precautions: fall, standard Patient Profile/Admitting Diagnosis: Patient admitted 04/24/23 after presenting to ER with bleeding from ileostomy. She was admitted for medical management. PT consult received for assessment of mobility. Social History/Home Situation: Patient lives with , Mayur. Independent at baseline. Current Functional Limitations: [] Equipment Owned/DME: [] Subjective: [] Objective: [] General Observation: [] Mental Status: [] Pain: [] Vital Signs: [] ROM: Right Upper Extremity: [] Left Upper Extremity: [] Right Lower Extremity: [] Left Lower Extremity: [] Strength: Right Upper Extremity: [] Left Upper Extremity: [] Right Lower Extremity: [] Left Lower Extremity: [] Sensation: [] Bed Mobility/Transfers: [] Gait: [] Balance: [] Static Sitting: [] Dynamic Sitting: [] Static Standing: [] Dynamic Standing: [] Special Tests: Mobility Limitations Standardized Measure [facility] AM-PAC 6 clicks Basic Mobility Inpatient Short Form: Raw Score: [] Standardized Score: [] CMS Score: [] Informed Consent/Education: Patient instructed in purpose of PT consult and plan of care. Assessment: Patient is a [] year old [] referred to physical therapy services with the diagnosis of []. Patient presents with clinical signs and symptoms consistent with [], as demonstrated by the following impairment level findings: []. Impairments are contributing to the following functional limitations: AMPAC score. Patient is assessed as a [] Low 81213 [] Moderate 26800 [] High 86857 complexity based on the following: History: [] Examination: [] Presentation: [] Decision Making: [] Goals: Goals X1 week 1. Supine-Sit [] 2. Sit-Supine [] 3. Sit-Stand [] 4. Stand-Sit [] 5. Bed-Chair [] 6. Chair-Bed [] 7. Gait [] 8. Stairs [] 9. Independent with home exercise program [] 10. Balance [] Plan of Care/Treatment Plan: 1-2x/day, 7 days/week x 1 week. Plan of care has been reviewed with the DRIVEMATIC MACHINE OPERATOR providing the service under Physical Therapy direction. Initiate Physical Therapy intervention for strengthening, bed mobility, transfers, gait, stairs, balance training, use of assistive device. DISCHARGE RECOMMENDATIONS: [] [] Home with no services [] [] Home with services [specify] [] Home with outpatient PT [] [] SNF for continued rehabilitation [] [] Skilled Nursing Care [] [] SNF versus LTC based on ability to participate and progress [] TREATMENT CODE/TIME: [] <Miryam Krishna - Last Filed: 04/28/23 13:10> Physical Therapy Inpatient Initial Evaluation Date: 04/28/23 Referring Doctor:? Dr. Trish Morillo PT Orders: PT CONSULT: limited ability and weak/fall risk Precautions: Fall, standard Patient Profile/Admitting Diagnosis:?Annamarie is an 87 yo female that was admitted 04/24/23 after presenting to ER with bleeding from ileostomy. She was admitted for medical management. PT consult received for assessment of mobility. Due to hypotensive issues, she was not appropriate to be seen right away. PMHX: See EMR Social History/Home Situation: Patient lives with , Mayur. Independent at baseline, assists with getting in bed. Uses [facility] for community ambulation. Equipment Owned/DME: [facility] Subjective: Cleared by nursing to see patient and patient is agreeable to PT. Patient is resting in bed following lunch at time of consult and connected to telemetry. Objective: General Observation: pleasant and alert Mental Status: A&O x3 Pain: None reported ROM: Right Upper Extremity: Shoulder Flexion to 90 degrees. Shoulder abduction to 90 degrees. Elbow flexion WFL. Wrist flexion WFL. Opening and closing of hand WFL. Left Upper Extremity: Shoulder Flexion to 90 degrees. Shoulder abduction to 90 degrees. Elbow flexion WFL. Wrist flexion WFL. Opening and closing of hand WFL. Right Lower Extremity: Hip flexion to 90 degrees. Hip abduction WFL. Knee flexion WFL. Ankle dorsiflexion WFL. Ankle plantarflexion WFL. Left Lower Extremity: Hip flexion to 90 degrees. Hip abduction WFL. Knee flexion WFL. Ankle dorsiflexion WFL. Ankle plantarflexion WFL. Strength: Right Upper Extremity: Shoulder flexors 5/5. Shoulder abductors 5/5. Elbow flexors 5/5. Elbow extensors 5/5. Manufacturing Engineer strong. Left Upper Extremity: Shoulder flexors 5/5. Shoulder abductors 5/5. Elbow flexors 5/5. Elbow extensors 5/5. Manufacturing Engineer strong. Right Lower Extremity: Hip flexors 5/5. Knee flexors 5/5. Knee extensors 5/5. Ankle dorsiflexors 5/5. Ankle plantarflexors 5/5. Left Lower Extremity: Hip flexors 5/5. Knee flexors 5/5. Knee extensors 5/5. Ankle dorsiflexors 5/5. Ankle plantarflexors 5/5. Sensation: Intact as to pain and pressure on bilateral lower extremities. Bed Mobility/Transfers: Rolling: Mod A Supine to sit: SBA Sit to supine: Min A with legs and 2 person max A to scoot up in bed Sit to stand: SBA Stand to sit: SBA Gait: Ambulated 5-10 feet in room with FWW Stairs: Not assessed Balance: Static Sitting: Good Dynamic Sitting: Fair Static Standing: Fair Dynamic Standing: Poor Special Tests: Mobility Limitations Standardized Measure [facility] AM-PAC 6 clicks Basic Mobility Inpatient Short Form: Raw Score: 18 CMS Score: 46.58% Informed Consent/Education: Patient instructed in purpose of PT consult and plan of care. Assessment: Patient presents with clinical signs and symptoms consistent with current/admitting diagnoses that have resulted to mobility limitations, gait instability, generalized weakness, and impairment of motor control as demonstrated by the following impairment level findings: 1. Decreased strength to core major muscle groups 2. Impaired sitting/standing balance 3. Impaired activity tolerance 4. Limitation of joint range of motion in bilateral shoulders Impairments are contributing to the following functional limitations: 1. Dependent bed mobility skills 2. Increased dependence with transfers 3. Inability to safely ambulate without assistive device and physical assistance 4. Increase completion time for mobility ADL performance 5. Increased fall risk 6. Inability to negotiate steps alone safely Patient is assessed as a Moderate complexity based on the following: History: 87 year old female with impairment level findings, functional limitations, and past medical history as indicated above Examination: Demonstrable impairment in strength, balance, and mobility level with underlying impairments and functional limitations as documented above Presentation: Evolving Decision Making: moderate complexity Patient appears to be at her baseline. is supportive at home. No dizziness or lightheaded feeling. Declines taking longer walk down cote. Goals: Goals x1 week 1. Supine-Sit: independent 2. Sit-Supine: independent 3. Sit-Stand: independent 4. Stand-Sit: independent 5. Bed-Chair: independent 6. Chair-Bed: independent 7. Independent gait on level surface with use of least restrictive device for at least 300 feet without report of pain nor dyspnea 8. Good static and dynamic standing balance/tolerance 9. Independent with home exercise program 10. Independent stair negotiation while holding onto bilateral rails for at least 10 steps without report of pain nor dyspnea Plan of Care/Treatment Plan: 1-2x/day, 7 days/week x1 week. Plan of care has been reviewed with the DRIVEMATIC MACHINE OPERATOR providing the service under Physical Therapy direction. Initiate Physical Therapy intervention for strengthening, bed mobility, transfers, gait, stairs, balance training, and use of assistive device. Discharge Plan DISCHARGE RECOMMENDATIONS: Home with no services TREATMENT CODE/TIME: 12:41-12:59 (18 minutes), [id number] Thank you for the opportunity to participate in the care of this patient. Miryam Krishna, PT, DPT, OCS [facility], [facility] [place], [place] <Stefanie Prater DPT - Last Filed: 04/28/23 09:38> [facility] All Active Problems (Updated 04/27/23 @ 18:07 by Christina Rajan DO) At high risk for skin breakdown (Acute) DVT prophylaxis (Acute) Parastomal ulcer of enterostomy (Acute) Elevated troponin (Acute) 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 (Acute) Abn react-external stoma (Acute) Acute kidney injury superimposed on chronic kidney disease (Acute) Pacemaker (Chronic) Elevated serum creatinine (Acute) Hyperkalemia (Acute) Chronic pain in left foot (Acute) Hypercholesterolemia (Acute) Discharge planning issues (Acute) Anemia due to GI blood loss (Acute) Medical History (Updated 04/27/23 @ 18:07 by Christina Rajan DO) Breast cancer Remains RADHA Cirrhosis CKD (chronic kidney disease), stage III Colon cancer H/O malignant neoplasm of colon History of breast cancer Hypertension Ischemic neuropathy of foot CONTRERAS (nonalcoholic steatohepatitis) PAD (peripheral artery disease) Paroxysmal atrial fibrillation Surgical History 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
[2023-04-28] MEDS: Nystatin POWDER 15 GM JAR TP (11:32)
--- NOTE | 2023-04-28 12:37 | PGE_ITS ---
Date of Service Date of service: 04/28/23 Time of Service: 12:37 Assessment and Plan Assessment and plan (1) 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: Status: Acute Assessment and plan: acute on chronic bleeding from stomal venous; can not exclude portal hypertension and varices from her CONTRERAS. Stable Hb, patient and her desire to return home today. I have asked CM to interview them to see what home needs she requires. P.T. is working w/ her now, and will give input on home dc plans. (2) Anemia due to GI blood loss: Status: Acute Assessment and plan: stable. I have requested iron studies to see if she needs supplementation. (3) Elevated troponin: Status: Acute Assessment and plan: Likely demand ischemia from severe anemia and resultant SVT. Rhythm is now paced. No chest pressure or dyspnea. Awaiting echo but by my examination I did not see any wall motion abnormalites and her LVEF if normal. I would not perform stress MPI at this point but allow her anemia to improve then decide as outpatient whether or not to pursue outpatient study. (4) Pacemaker: Status: Chronic Assessment and plan: Functioning well per monitor. F/u as outpatient. ?indication. (5) Elevated serum creatinine: Status: Acute Assessment and plan: stable chronic kidney disease. Baseline creatinine appears to be 2.5 to 2.9. (6) Cirrhosis: Assessment and plan: As above. Obtain US abdomen to assess portal hypertension and variceal status. Awaiting results of abdominal US but doubt that this will change her disposition. (7) CKD (chronic kidney disease), stage III: Assessment and plan: stable (8) Hypertension: Assessment and plan: BP now stable after transfusion of 4 units of PRBC. BP running 107 to 110 systolic. Tolerating her home dose of Toprol XL 100 mg nigthly (9) Ischemic neuropathy of foot: Assessment and plan: As above. Continue to try to optimize Perfusion. (10) CONTRERAS (nonalcoholic steatohepatitis): Assessment and plan: Resulting in cirrhosis. As above. (11) PAD (peripheral artery disease): Assessment and plan: Would not start antiplatelet therapy given bleeding (12) Paroxysmal atrial fibrillation: Assessment and plan: Paroxysmal SVT/?Aflutter/Afib. Optimize volume. S/p pacemaker. Continue BB with holding parameters. (13) DVT prophylaxis: Status: Acute Assessment and plan: SCDs. Hold chemical DVT ppx in light of recurrent bleeding from ostomy (14) Discharge planning issues: Status: Acute Assessment and plan: DNR/DNI per Dr. Morlilo's discussion w/ the patient. Will dc home. Patient declines any home health services, per CM discussion w/ patient and her Subjective Subjective Interval history since last seen: Patient and her are eager for her to return home. Her Hb is minimally decreased from yesterdays level (Hb 10.1 gm to 9.7 gm). Patient denies any abdominal pain or noticeable bleeding from her stoma. She has been on octreotide empirically for possible variceal bleeding but according to surgeon's notes no evidence of varices on prior studies in 2021, although she has cirrhosis from CONTRERAS, she has no known varices. Patient's bleeding was treated w/ ligation and cautery of bleeding vein from the stoma. Patient had transfusion of 4 units PRBC in total after presenting w/ syncope and Hb of 7.7 gm on admission. She had some transient elevation in her troponin levels that peaked at 388 but has declined to 60. She denies any chest pressure or dyspnea. She has some right chest wall tenderness from the fall. Exam Narrative Exam Narrative: alert and oriented, she is talking w/ P.T. who is here to work w/ ambulation LUngs: clear Heart: regular (atrial paced rhythm per monitor at rate of 62 bpm) Abdomen: soft, nontender, normal bowel sounds; ostomy w/ light brown stool, no visible blood Objective Last Vital Signs Temp 37.7 C H 04/28/23 08:00 Pulse 59 L 04/28/23 10:01 Resp 9 L 04/28/23 10:01 BP 110/45 L 04/28/23 10:01 Pulse Ox 94 04/28/23 08:00 Laboratory Results - last 24 hr 04/28/23 04/28/23 06:14 06:14 WBC 8.75 RBC 3.25 L Hgb 9.7 L Hct 29.0 L MCV 89 MCH 29.8 MCHC 33.4 RDW 14.5 Plt Count 78 L MPV 9.4 Immature Gran % 0.7 Neutrophils % 71.5 Lymphocytes % 15.4 Monocytes % 9.3 Eosinophils % 2.6 Basophils % 0.5 Nucleated RBC % 0.0 Absolute Neutrophils 6.26 Absolute Lymphocytes 1.35 Absolute Monocytes 0.81 H Absolute Eosinophils 0.23 Absolute Basophils 0.04 RBC Morphology Normal Sodium 138 Potassium 4.0 D Chloride 109 H Carbon Dioxide 19.2 L Anion Gap 9.8 BUN 37 H Creatinine 2.4 H Est GFR (CKD-EPI 2020) 19.19 Glucose 142 H Calcium 8.1 L Magnesium 1.7 L Time Spent with Patient Time Spent with Patient: 35-49 minutes Time was spent: preparing to see the patient(eg.review tests), ordering medications,tests, procedures, referring, communicating with other health transitions rn care coordinator, indepentently interpreting results, counseling the patient and care coordination
--- NOTE | 2023-04-28 13:04 | W.NUTCONSULT ---
Date of service: 04/28/23 Time of Service: 13:04 Nutritional Consult ASSESSMENT: Annamarie was admitted with parastomal ulcer of enterostomy with ileostomy. PMH includes CONTRERAS, CKD, breast/colon CA, HTN, obesity. Ileostomy output stable. Estimated Needs: (BEE x 1.2-1.3): 8786-3136 kcal, 88-96 g protein, 1500 ml fluid Following diabetic/low potassium diet and meeting approx. 60% of nutrient needs. At risk for skin breakdown as not meeting macronutrient needs. NUTRITIONAL DIAGNOSIS: Altered GI function Inadequate protein intake INTERVENTION: Recommend liquid protein 1 oz BID to supplement po intake Continue current meal plan MONITORING AND EVALUATION: po intake, weight, labs Time Spent in Nutritional Counseling and Treatment: 20
[2023-04-28 14:18] LABS: Lab Add On Test DONE
[2023-04-28 14:29] LABS: Iron 14 ug/dL (50-170); Total Iron Binding Capacity 277 ug/dL (250-450); Transferrin Sat 5 % (15-50)
[2023-04-28 14:43] LABS: Ferritin 318 ng/mL (8-252)
--- NOTE | 2023-04-28 17:03 | CHAPLAIN ---
I visited with Annamarie and her . They are hoping to find out that Annamarie is being discharged today and are waiting to speak with the hospitalist. I explained my role and offered support.
[2023-04-28] MEDS: Acetaminophen 500 MG TAB 1000 MG PO (18:41)
--- NOTE | 2023-04-28 22:51 | W.PM.DS.N ---
Date of service: 04/28/23 Time of Service: 19:09 DS: Diagnosis Discharge Diagnosis (1) 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: Status: Acute (2) Parastomal ulcer of enterostomy: Status: Acute (3) Anemia due to GI blood loss: Status: Acute (4) PSVT (paroxysmal supraventricular tachycardia): Status: Acute (5) Elevated troponin: Status: Acute (6) Acute kidney injury superimposed on chronic kidney disease: Status: Acute (7) Hypercholesterolemia: Status: Acute (8) Cirrhosis: (9) CKD (chronic kidney disease), stage III: (10) Ischemic neuropathy of foot: (11) PAD (peripheral artery disease): (12) CONTRERAS (nonalcoholic steatohepatitis): (13) Paroxysmal atrial fibrillation: (14) Hypertension: Discharge Plan Disposition Patient Disposition: Home Condition: Improving Discharge Details Reason For Visit: Bleeding Colostomy Admit Date/Time: 04/25/23 11:33 Admit Provider: Christina Rajan Attending Provider: Solitario Hdz Primary Care Provider: Dede Miller Hospital Course Hospital Course: 87 yr old female w/ PMH of PAF controlled w/ Toprol XL, not anticoagulated, HTN, cirrhosis d/t CONTRERAS, PAD w/ ischemic peripheral neuropathy who had prior right hemicolectomy for perforated colon cancer in 2013 who has suffered w/ recurrent intermittent parastomal ileostomy bleeding since 2018. She had been evaluated at [facility] IN 2021 w/ CT and MRI of her liver and hepatology panel discussed her case and determined she has cirrhosis from CONTRERAS but no evidence for portal hypertension or varices. She presents now to the the ED on 04/24/23 w/ syncope from recurrent parastomal bleeding and acute blood loss anemia in which her Hb was down to 7.7 gm. She was transfused initially 2 units of PRBC w/ subsequent rise in her Hb to 10.2 gm but her Hb dropped again to 8.8 and w/ recurrent parastoma bleeding and received 2 more units of PRBC. She was initially admitted to surgical service of Dr. Rajan. Her ileostomy had some bleeding veins and macerated stoma. The veins were oversewn and cauterized. A new stomal convex pouching system was applied. Her stay was complicated by PSVT in the 160's which was treated w/ beta blockers. She had a transient rise in her troponin I to as high as 388 (initial troponin on admission was normal at <50, w/ control of her anemia and her heart rate her troponin declined to 60. Her PSVT responded to beta blockers and she was continued on her Toprol XL. She never had any CP. Echocardiogram was eventually obtained on 04/28 and demonstrated normal LV and RV function and size, LVEF 55 TO 60% w/ no regional wall motion abnormalities. Her troponin rise was blamed on rate related ischemia brought on by her anemia. Serial hemoglobin/hematocrit were monitored and she had no more visible bleeding from her ostomy. Final Hb on discharge was 9.7 gm and HCT of 29%. Patient desired to return home. army manager met w/ her and her but they declined any home health services. Patient should have repeat hemogram done within one week. Further evaluation for occult ischemic heart disease has been deferred to her PCP. Patient was discharged in much improved condition. She should have follow up w/ surgery in the next 4 weeks. Repeat hemogram in one week. Home Meds and New Rx's Prescriptions: Continued gabapentin 600 MG tablet 600 mg PO BID metoprolol succinate 100 MG tablet extended release 24 hr 100 mg PO QPM Discontinued naproxen sodium [Aleve] 220 mg Tablet 220 mg PO BID Discharge Instructions Instructions: Acute Posthemorrhagic Anemia (DC) Additional Instructions: Please stop taking naproxen and any other non-steroidal anti-inflammatory medicaitons as this increases your risks for gastrointestinal bleeding and may worsen your liver cirrhosis. This includes motrin, Aleve, ibuprofen, naproxen. You may use small doses of Tylenol at a daily dose of 2 gm or less (that is two extra strength Tylenol twice a day) but do not use for more than 3 consecutive days as you are at risk for liver toxicity from your cirrhosis and chronic Tylenol accumulation can lead to liver failure. Please follow up w/ Dr. Mike in the 2 to 3 weeks regarding ileostomy care. Referrals: Dede Miller [Primary Care Provider] - Christina Rajan DO [OSTEOPATHIC DOCTOR] - Activity:: Activity as Tolerated Equipment/Supplies:: No Equipment Needed Diet:: As Tolerated Discharge Orders Discharge Orders: Discharge Order (Routine); Ordered 04/28/23 Ordered By: Albert Waldrop Other Ambulatory Orders: Complete Blood Count w/Diff (Routine) Timeframe: 1 Week Facility: [facility] - Location: Laboratory Outpatient - [facility] Ordered By: Albert Waldrop Discharge Data Discharge Date/Time-TO BE ENTERED AT DEPARTURE: 04/28/23 19:30 Discharge Comment: patient left via wheelchair from ICU DS: Summary Time Spent with Patient providing and/or coordinating discharge services: Less than 30 minutes Status at Discharge Functional status at discharge: independent ambulation Overall status at discharge: patient is progressing back to baseline Mental Status: mental status grossly normal Speech and Movement: speech and movement normal Mood: congruent mood Affect: normal affect Exam Psych Mental Status: mental status grossly normal Speech and Movement: speech and movement normal Mood: congruent mood Affect: normal affect DS: Data Vitals/I&O Vitals and I&O: Vital Signs Temperature 36.9 C 04/28/23 15:37 Temperature Source Temporal Artery Scan 04/28/23 15:37 Pulse 60 04/28/23 18:01 Pulse Rhythm Regular 04/25/23 07:15 Pulse 70 04/28/23 18:01 Respiratory Rate 17 04/28/23 18:01 Respiratory Effort Normal, Non-Labored 04/28/23 15:37 Respiratory Depth Normal 04/28/23 15:37 Respiratory Pattern Normal 04/28/23 15:37 Blood Pressure 110/34 L 04/28/23 18:01 Blood Pressure Mean 53 04/28/23 18:01 Blood Pressure Position Sitting 04/28/23 15:37 Pulse Oximetry 93 04/28/23 18:01 Oxygen Delivery Method Room Air 04/28/23 15:37 Oxygen Flow Rate 0 04/28/23 15:37 Pain Level 3 04/28/23 19:41 Comment RN infomred of VS 04/25/23 12:41 Intake & Output 04/27/23 04/28/23 04/28/23 23:59 11:59 23:59 Intake Total 1047.5 / 6648.303 3099.5 / 1262.5 100 / 1262.5 Output Total 950 / 1510 1300 / 1850 550 / 1850 Balance 97.5 / 441.667 -137.5 / -587.5 -450 / -587.5 Weight 74.8 kg Intake: IV 727.5 / 1431.667 772.5 / 872.5 100 / 872.5 Oral 320 / 520 390 / 390 Output: Urine 750 / 910 750 / 1150 400 / 1150 Stool 200 / 600 550 / 700 150 / 700 Other: Urine Color Light Sonal Yellow Yellow Urine Appearance Clear Clear Clear Urine Odor None Normal Normal Comment pt. declines need to use the bedside commode at this time pt denies dysuria Voiding Methods Bedside Commode Bedside Commode Bedside Commode Data Completed and Pending Labs on day of discharge: Labs from last 24 hours 04/28/23 04/28/23 04/28/23 06:14 06:14 06:14 WBC RBC Hgb Hct MCV MCH MCHC RDW Plt Count MPV Immature Gran % Neutrophils % Lymphocytes % Monocytes % Eosinophils % Basophils % Nucleated RBC % Absolute Neutrophils Absolute Lymphocytes Absolute Monocytes Absolute Eosinophils Absolute Basophils RBC Morphology Sodium Potassium Chloride Carbon Dioxide Anion Gap BUN Creatinine Est GFR (CKD-EPI 2020) Glucose Calcium Magnesium Iron 14 L TIBC 277 Transferrin Cancelled Transferrin % Sat 5 L Ferritin 318 H Add-On Test Request 04/28/23 04/28/23 04/28/23 06:14 06:14 06:14 WBC 8.75 RBC 3.25 L Hgb 9.7 L Hct 29.0 L MCV 89 MCH 29.8 MCHC 33.4 RDW 14.5 Plt Count 78 L MPV 9.4 Immature Gran % 0.7 Neutrophils % 71.5 Lymphocytes % 15.4 Monocytes % 9.3 Eosinophils % 2.6 Basophils % 0.5 Nucleated RBC % 0.0 Absolute Neutrophils 6.26 Absolute Lymphocytes 1.35 Absolute Monocytes 0.81 H Absolute Eosinophils 0.23 Absolute Basophils 0.04 RBC Morphology Normal Sodium 138 Potassium 4.0 D Chloride 109 H Carbon Dioxide 19.2 L Anion Gap 9.8 BUN 37 H Creatinine 2.4 H Est GFR (CKD-EPI 2020) 19.19 Glucose 142 H Calcium 8.1 L Magnesium 1.7 L Iron TIBC Transferrin Transferrin % Sat Ferritin Add-On Test Request DONE Preliminary micro results at discharge 04/27/23 18:35 Blood Culture - Preliminary Blood NO GROWTH 24 HOURS 04/27/23 18:42 Blood Culture - Preliminary Blood NO GROWTH 24 HOURS PFSH All Active Problems (Updated 04/28/23 @ 22:54 by Albert Waldrop MD) PSVT (paroxysmal supraventricular tachycardia) (Acute) At high risk for skin breakdown (Acute) DVT prophylaxis (Acute) Parastomal ulcer of enterostomy (Acute) Elevated troponin (Acute) 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 (Acute) Abn react-external stoma (Acute) Acute kidney injury superimposed on chronic kidney disease (Acute) Pacemaker (Chronic) Elevated serum creatinine (Acute) Hyperkalemia (Acute) Chronic pain in left foot (Acute) Hypercholesterolemia (Acute) Discharge planning issues (Acute) Anemia due to GI blood loss (Acute) Medical History (Updated 04/28/23 @ 22:54 by Albert Waldrop MD) Breast cancer Remains RADHA Cirrhosis CKD (chronic kidney disease), stage III Colon cancer H/O malignant neoplasm of colon History of breast cancer Hypertension Ischemic neuropathy of foot CONTRERAS (nonalcoholic steatohepatitis) PAD (peripheral artery disease) Paroxysmal atrial fibrillation Surgical History 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
== END 2023-04-28 19:30 | disposition home or self-care (01) | DRG 394 ==
LOC: ER 22:00 → MS 22:47 → ICU 04-25 13:45
PROVIDERS: Internal Medicine; Admitting Provider Surgery; Emergency Provider Nurse Practitioner Acute Care; PCP Legal Medicine; Visit Provider Family Medicine
DX: K94.11 Enterostomy hemorrhage (principal); D62 Acute posthemorrhagic anemia; I47.1 Supraventricular tachycardia; N17.9 Acute kidney failure, unspecified; I24.8 Other forms of acute ischemic heart disease; Z95.0 Presence of cardiac pacemaker; K74.60 Unspecified cirrhosis of liver; I12.9 Hypertensive chronic kidney disease with stage 1 through stage 4 chronic kidney disease, or unspecified chronic kidney disease; N18.30 Chronic kidney disease, stage 3 unspecified; K75.81 Nonalcoholic steatohepatitis (NASH); I48.0 Paroxysmal atrial fibrillation; I73.9 Peripheral vascular disease, unspecified; E78.00 Pure hypercholesterolemia, unspecified; M79.672 Pain in left foot; G89.29 Other chronic pain; E87.5 Hyperkalemia; Z85.3 Personal history of malignant neoplasm of breast; G57.82 Other specified mononeuropathies of left lower limb; Z85.038 Personal history of other malignant neoplasm of large intestine; Z90.49 Acquired absence of other specified parts of digestive tract; K94.19 Other complications of enterostomy; L98.499 Non-pressure chronic ulcer of skin of other sites with unspecified severity; Z66 Do not resuscitate; I95.89 Other hypotension; D75.839 Thrombocytosis, unspecified
CPT/HCPCS: 36415; 36430; 71250; 80048; 80053; 82805; 84145; 86850; 86900; 86901; 86920; 87040; 93306; 96361; 96365; 97162; 99223; 99232; 99233; 74176; 76700; 82728; 83036; 83540; 83550; 83605; 83735; 84132; 84466; 84484; 85014; 85018; 85025; 85610; 85730; 86870; 86902; 93005; 93010; 99238; 99291; G0378; J1756; J2354; J3010; J3475; P9016

== ENCOUNTER 2023-04-30 08:22 | Emergency (ER) | payer MEDICARE, SELFPAY ==
--- NOTE | 2023-04-30 10:43 | NUR.NOTE ---
Nursing Note: Put on tracker in error by [employer].
== END 2023-04-30 08:29 | disposition other institution (70) ==
PROVIDERS: PCP Legal Medicine
DX: Z53.21 Procedure and treatment not carried out due to patient leaving prior to being seen by health care provider (principal)

== ENCOUNTER → 2023-04-30 08:42 | Outpatient (BNVA) | payer MEDICARE, SELFPAY ==
--- NOTE | 2023-05-01 12:52 | PT.INDS ---
PT Notes Visit Reasons: ileostomy check Physical Therapy Inpatient Discharge Summary Date: 04/29/23 Dates of Service: 04/28/2023 only This is a clinical summary of care provided for the duration of dates listed above. No charge was made in the completion of this documentation. Referring Doctor:? Dr. Trish Morillo PT Orders: PT CONSULT: limited ability and weak/fall risk Precautions: Fall, standard Patient Profile/Admitting Diagnosis:? Annamarie is an 87 yo female that was admitted 04/24/23 after presenting to ER with bleeding from ileostomy. She was admitted for medical management. PT consult received for assessment of mobility. Due to hypotensive issues, she was not appropriate to be seen right away. PMHX: See EMR Social History/Home Situation: Patient lives with , Mayur. Independent at baseline, assists with getting in bed. Uses [employer] for community ambulation. Equipment Owned/DME: [employer] Subjective:? NT. See most recent BUSINESS SYSTEMS DEVELOPER notes. Objective:? General Observation: NT. See most recent BUSINESS SYSTEMS DEVELOPER notes. Mental Status: NT. See most recent BUSINESS SYSTEMS DEVELOPER notes. Pain: NT. See most recent BUSINESS SYSTEMS DEVELOPER notes. ROM: Right Upper Extremity: Shoulder Flexion to 90 degrees. Shoulder abduction to 90 degrees. Elbow flexion WFL. Wrist flexion WFL. Opening and closing of hand WFL. Left Upper Extremity: Shoulder Flexion to 90 degrees. Shoulder abduction to 90 degrees. Elbow flexion WFL. Wrist flexion WFL. Opening and closing of hand WFL. Right Lower Extremity: Hip flexion to 90 degrees. Hip abduction WFL. Knee flexion WFL. Ankle dorsiflexion WFL. Ankle plantarflexion WFL. Left Lower Extremity: Hip flexion to 90 degrees. Hip abduction WFL. Knee flexion WFL. Ankle dorsiflexion WFL. Ankle plantarflexion WFL. Strength: Right Upper Extremity: Shoulder flexors 5/5. Shoulder abductors 5/5. Elbow flexors 5/5. Elbow extensors 5/5. [place]aser strong. Left Upper Extremity: Shoulder flexors 5/5. Shoulder abductors 5/5. Elbow flexors 5/5. Elbow extensors 5/5. [place] strong. Right Lower Extremity: Hip flexors 5/5. Knee flexors 5/5. Knee extensors 5/5. Ankle dorsiflexors 5/5. Ankle plantarflexors 5/5. Left Lower Extremity: Hip flexors 5/5. Knee flexors 5/5. Knee extensors 5/5. Ankle dorsiflexors 5/5. Ankle plantarflexors 5/5. Sensation:? Intact as to pain and pressure on bilateral lower extremities. Bed Mobility/Transfers: Rolling: Mod A Supine to sit: SBA Sit to supine: Min A with legs and 2 person max A to scoot up in bed Sit to stand: SBA Stand to sit: SBA Gait:? Ambulated 5-10 feet in room with FWW Balance:? Static Sitting: Good Dynamic Sitting: Fair Static Standing: Fair Dynamic Standing: Poor Assessment: Patient presents with clinical signs and symptoms consistent with current/admitting diagnoses that have resulted to mobility limitations, gait instability, generalized weakness, and impairment of motor control as demonstrated by the following impairment level findings: 1. Decreased strength to core major muscle groups 2. Impaired sitting/standing balance 3. Impaired activity tolerance 4. Limitation of joint range of motion in bilateral shoulders Impairments are contributing to the following functional limitations: 1. Dependent bed mobility skills 2. Increased dependence with transfers 3. Inability to safely ambulate without assistive device and physical assistance 4. Increase completion time for mobility ADL performance 5. Increased fall risk 6. Inability to negotiate steps alone safely Goals: Goals x1 week 1. Supine-Sit: independent NOT MET 2. Sit-Supine: independent NOT MET 3. Sit-Stand: independent NOT MET 4. Stand-Sit: independent NOT MET 5. Bed-Chair: independent NOT MET 6. Chair-Bed: independent NOT MET 7. Independent gait on level surface with use of least restrictive device for at least 300 feet without report of pain nor dyspnea NOT MET 8. Good static and dynamic standing balance/tolerance NOT MET 9. Independent with home exercise program NOT MET 10. Independent stair negotiation while holding onto bilateral rails for at least 10 steps without report of pain nor dyspnea NOT MET Discharge Plan DISCHARGE RECOMMENDATIONS: Home with no services TREATMENT CODE/TIME: UT Thank you for the opportunity to participate in the care of this patient. Cecilia Moscoso PT, DPT, CLT [facility] [place], [place]
== END ==
PROVIDERS: PCP Legal Medicine; Referring Provider Legal Medicine; Visit Provider Surgery
DX: K94.19 Other complications of enterostomy (principal)

== ENCOUNTER → 2023-05-21 10:13 | Outpatient (BNVA) | payer MEDICARE, BC, SELFPAY | PROVIDERS: PCP Legal Medicine; Referring Provider Legal Medicine; Visit Provider Surgery | DX: K94.03 Colostomy malfunction (principal); K94.19 Other complications of enterostomy; K75.81 Nonalcoholic steatohepatitis (NASH); I73.9 Peripheral vascular disease, unspecified | CPT/HCPCS: 36415; 99213 ==

== ENCOUNTER 2023-05-21 10:49 | Outpatient (REF) | payer MEDICARE, BC, SELFPAY ==
[2023-05-21 11:43] LABS: Abs Immature Grans 0.01 10^3/uL (0.0-0.06); Absolute Basophil Count 0.03 10^3/uL (0.0-0.2); Absolute Eosinophil Count 0.18 10^3/uL (0.0-0.7); Absolute Lymphocyte Count 1.15 10^3/uL (1.2-3.4); Absolute Monocyte Count 0.43 10^3/uL (0.1-0.8); Absolute Neutrophil Count 3.02 10^3/uL (1.2-6.7); Basophils % 0.6; Eosinophils % 3.7; HCT 33.4 % (36.0-46.0); HGB 10.7 g/dL (11.2-15.7); Immature Grans % 0.2; Lymphocytes % 23.9; MCH 29.2 pg (27.0-33.0); MCV 91 fL (80-95); MPV 9.3 fL (8.0-11.0); Monocytes % 8.9; Neutrophils % 62.7; Platelet Count 116 10^3/uL (130-400); RBC 3.66 10^6/uL (3.93-5.22); RDW-SD 50.9 fL; WBC 4.82 10^3/uL (4.4-10.8)
[2023-05-21 12:06] LABS: Iron 80 ug/dL (50-170); Total Iron Binding Capacity 344 ug/dL (250-450); Transferrin Sat 23 % (15-50)
[2023-05-21 12:29] LABS: Ferritin 99 ng/mL (8-252)
== END 2023-05-21 10:50 | disposition home or self-care (01) ==
LOC: LBN 10:49
PROVIDERS: PCP Legal Medicine; Visit Provider Surgery
DX: D50.0 Iron deficiency anemia secondary to blood loss (chronic) (principal); K94.11 Enterostomy hemorrhage
CPT/HCPCS: 82728; 83540; 83550; 85025

== ENCOUNTER 2023-06-03 19:15 | Emergency (ER) | payer MEDICARE, BC, SELFPAY ==
--- NOTE | 2023-06-03 19:15 | RT.EKG_ITS ---
APPROVED REPORT Exam: Resting ECG Reason for Exam: dizziness Patient Location: E HR:62 bpm ECG Measurements Heart Rate 62 AXIS FL 182 P [id number] QRSd 126 QRS -49 QT 441 T 56 QTc 450 Conclusion Atrial-paced complexes...other complexes also detected RBBB and LAFB...QRSd >120mS, axis(-40,240) Probable left ventricular hypertrophy...(RaVL+SV3)xQRSd >300 ST elevation, consider inferior injury...ST >0.08mV, II III aVF
[2023-06-03 19:21] VITALS: BP 149/75; PULSE 67; RESP 20; TEMP 36.6; O2SAT 99
--- NOTE | 2023-06-03 19:58 | ED.GENADUL_ITS ---
Discharge Plan Disposition Patient Disposition: Home Condition: Stable Discharge Details Clinical Impression: Gastric bleeding Primary Care Provider: Dede Miller ED Provider: Ofelia Oquendo Home Meds and New Rx's Prescriptions: No Action gabapentin 600 MG tablet 600 mg PO BID magnesium 250 mg tablet 250 mg PO DAILY Qty: 20 0RF metoprolol succinate 100 MG tablet extended release 24 hr 100 mg PO QPM Discharge Instructions Instructions: Rectal Bleeding (ED) Additional Instructions: Keep the Band-Aid with the TXA on the area of bleeding until you change the ostomy bag. Follow-up with general surgery in 1 to 2 days. Return to the ER for any recurrent bleeding that you are unable to get to stop. Follow up with primary care provider in 3-5 days. Return to ED sooner if any worsening or concerns. Increase oral fluids. 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 Patient has approximately 150 mL of dark red blood in the stoma bag which she reports she is emptied to bags full of blood prior to arrival. She also reports dizziness which began yesterday. She has recently been admitted in March for similar. 2005: Spoke with Dr. Mike who is phone banker for general surgery, she states that it may be bleeding from higher up and can be admitted and and have surgery consult tomorrow. CBC, type and screen, CMP ordered and is pending at this time. CBC shows an H&H of 10 and 32 which is stable at this time. 2149: Attempted cauterization of bleeding area with silver nitrate sticks, this was unsuccessful. TXA was applied topically. Bleeding seems to be controlled at this time. Patient's colostomy bag was changed out. We will keep the TXA on topically until her next bag can be changed. I do encourage her to be seen by general surgery tomorrow if possible. She has had a total of approximately 200 mL of blood in the colostomy bag. Bleeding remained controlled throughout the remainder of her stay. Discussed tricked return instructions she verbalized understanding. This text was generated using [employer] dictation system, please disregard any oddities of phrase or misspellings. Medical Records Medical records reviewed: Yes I reviewed the patient's medical records. Lab Data Lab results reviewed: Yes I reviewed the patient's lab results. Labs: Laboratory Tests Range/Units 06/03/23 06/03/23 06/03/23 20:08 20:08 20:08 WBC (4.4-10.8) 10^3/uL 5.74 RBC (3.93-5.22) 10^6/uL 3.57 L Hgb (11.2-15.7) g/dL 10.6 L Hct (36.0-46.0) % 32.2 L MCV (80-95) fL 90 MCH (27.0-33.0) pg 29.7 MCHC (32.0-36.0) % 32.9 RDW (11.7-14.6) % 14.3 Plt Count (130-400) 10^3/uL 99 L MPV (8.0-11.0) fL 9.1 Immature Gran % 0.3 Neutrophils % 68.2 Lymphocytes % 22.8 Monocytes % 6.8 Eosinophils % 1.4 Basophils % 0.5 Nucleated RBC % (0.0-0.3) % 0.0 Absolute Neutrophils (1.2-6.7) 10^3/uL 3.91 Absolute Lymphocytes (1.2-3.4) 10^3/uL 1.31 Absolute Monocytes (0.1-0.8) 10^3/uL 0.39 Absolute Eosinophils (0.0-0.7) 10^3/uL 0.08 Absolute Basophils (0.0-0.2) 10^3/uL 0.03 PT (9.3-11.0) sec 10.2 INR (0.9-1.1) 1.0 APTT (21.5-31.9) sec 22.8 Sodium (136-145) mmol/L 144 Potassium (3.5-5.1) mmol/L 4.5 Chloride (98-107) mmol/L 110 H Carbon Dioxide (21.0-32.0) mmol/L 21.9 Anion Gap (3-11) mmol/L 12.1 H BUN (7-18) mg/dL 24 H Creatinine (0.55-1.02) mg/dL 1.9 H Est GFR (CKD-EPI 2020) (mL/min/1.73m2) 25.40 Glucose (74-106) mg/dL 143 H Calcium (8.5-10.1) mg/dL 9.5 Magnesium (1.8-2.4) mg/dL 1.5 L Total Bilirubin (0.2-1.0) mg/dL 1.4 H AST (15-37) U/L 21 ALT (14-59) U/L 17 Alkaline Phosphatase (46-116) U/L 71 Troponin I (<or=60) ng/L < 50 Total Protein (6.4-8.2) g/dL 6.8 Albumin (3.4-5.0) g/dL 3.4 Urine Color (Yellow) Urine Clarity (Clear) Urine pH (5-8) Ur Specific [place] (1.005-1.025) Urine Protein (Negative) mg/dL Urine Ketones (Negative) mg/dL Urine Blood (Negative) Urine Nitrite (Negative) Urine Bilirubin (Negative) Urine Urobilinogen (Up to 0.2) mg/dL Ur Leukocyte Esterase (Negative) Urine RBC (0-2) HPF Urine WBC (0-5) HPF Ur Epithelial Cells (Negative) HPF Urine Crystals (Negative) HPF Urine Bacteria (Negative) HPF Urine Casts (Negative) LPF Urine Mucus (Negative) Urine Other (Negative) Ur Culture Indicated? Urine Glucose (Negative) mg/dL Patient ABO/Rh Antibody Screen Antibody Identification Antigen Identification Range/Units 06/03/23 06/03/23 06/03/23 20:08 20:34 22:52 WBC (4.4-10.8) 10^3/uL RBC (3.93-5.22) 10^6/uL Hgb (11.2-15.7) g/dL Hct (36.0-46.0) % MCV (80-95) fL MCH (27.0-33.0) pg MCHC (32.0-36.0) % RDW (11.7-14.6) % Plt Count (130-400) 10^3/uL MPV (8.0-11.0) fL Immature Gran % Neutrophils % Lymphocytes % Monocytes % Eosinophils % Basophils % Nucleated RBC % (0.0-0.3) % Absolute Neutrophils (1.2-6.7) 10^3/uL Absolute Lymphocytes (1.2-3.4) 10^3/uL Absolute Monocytes (0.1-0.8) 10^3/uL Absolute Eosinophils (0.0-0.7) 10^3/uL Absolute Basophils (0.0-0.2) 10^3/uL PT (9.3-11.0) sec INR (0.9-1.1) APTT (21.5-31.9) sec Sodium (136-145) mmol/L Potassium (3.5-5.1) mmol/L Chloride (98-107) mmol/L Carbon Dioxide (21.0-32.0) mmol/L Anion Gap (3-11) mmol/L BUN (7-18) mg/dL Creatinine (0.55-1.02) mg/dL Est GFR (CKD-EPI 2020) (mL/min/1.73m2) Glucose (74-106) mg/dL Calcium (8.5-10.1) mg/dL Magnesium (1.8-2.4) mg/dL Total Bilirubin (0.2-1.0) mg/dL AST (15-37) U/L ALT (14-59) U/L Alkaline Phosphatase (46-116) U/L Troponin I (<or=60) ng/L Cancelled Total Protein (6.4-8.2) g/dL Albumin (3.4-5.0) g/dL Urine Color (Yellow) Yellow Urine Clarity (Clear) Sl Cloudy Urine pH (5-8) 5.5 Ur Specific [place] (1.005-1.025) 1.020 Urine Protein (Negative) mg/dL Negative Urine Ketones (Negative) mg/dL Negative Urine Blood (Negative) Negative Urine Nitrite (Negative) Negative Urine Bilirubin (Negative) Negative Urine Urobilinogen (Up to 0.2) mg/dL 0.2 Ur Leukocyte Esterase (Negative) Moderate H Urine RBC (0-2) HPF Negative Urine WBC (0-5) HPF 10-20 H Ur Epithelial Cells (Negative) HPF Many Urine Crystals (Negative) HPF Negative Urine Bacteria (Negative) HPF Moderate Urine Casts (Negative) LPF Negative Urine Mucus (Negative) Trace Urine Other (Negative) Few Transitional Ur Culture Indicated? No/Sq. Contamination Urine Glucose (Negative) mg/dL Negative Patient ABO/Rh A Positive Antibody Screen POSITIVE Antibody Identification Anti-K Antigen Identification K Antigen - NEGATIVE HPI General Mode of arrival: ambulatory . Date/Time Provider Initiated Documentation: 06/03/23 19:28 . Limitations to Documentation: no limitations . Information obtained by: patient, family, RN notes reviewed and old records reviewed . 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 Patient has approximately 150 mL of dark red blood in the stoma bag which she reports she is emptied to bags full of blood prior to arrival. She also reports dizziness which began yesterday. She has recently been admitted in March for similar. Related Data Home Medications Medication Instructions Recorded Confirmed gabapentin 600 mg tablet 600 mg PO BID 09/16/16 06/04/23 metoprolol succinate 100 mg 100 mg PO QPM 03/13/18 06/04/23 tablet,extended release 24 hr magnesium 250 mg tablet 250 mg PO DAILY #20 tabs 06/04/23 Previous Rx's Medication Instructions Recorded magnesium 250 mg tablet 250 mg PO DAILY #20 tabs 06/04/23 Allergies Allergy/AdvReac Type Severity Reaction Status Date / Time No Known Allergies Allergy Unverified 06/03/23 19:27 General Stated Complaint: GenMedical LETI: 3 Review of Systems All systems reviewed & are unremarkable except as noted in HPI and below ENT Ears, Nose, Mouth, and Throat: Reports dizziness Gastrointestinal Gastrointestinal: Reports as per HPI and Reports hematochezia (Dark Maroon blood noted in ostomy bag. ) Neurologic Neurologic: Reports dizziness PFSH All Active Problems (Updated 06/04/23 @ 13:54 by HUNTER Alaniz) Gastric bleeding (Acute) Colostomy malfunction (Acute) Hypomagnesemia (Acute) PSVT (paroxysmal supraventricular tachycardia) (Acute) At high risk for skin breakdown (Acute) Parastomal ulcer of enterostomy (Acute) Elevated troponin (Acute) 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 (Acute) Abn react-external stoma (Acute) Pacemaker (Chronic) Elevated serum creatinine (Acute) Chronic pain in left foot (Acute) Hypercholesterolemia (Acute) Anemia due to GI blood loss (Acute) Medical History Breast cancer Remains RADHA Cirrhosis CKD (chronic kidney disease), stage III Colon cancer H/O malignant neoplasm of colon History of breast cancer Hypertension Ischemic neuropathy of foot OSBORNE (nonalcoholic steatohepatitis) PAD (peripheral artery disease) Paroxysmal atrial fibrillation Surgical History 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 Appears stated age. Normal body habitus. Head: Normocephalic, no trauma. Eyes: Pupils PERRL, Red reflex noted, EOM's intact. Eyelids symmetrical without lesions, discharge, or swelling. Chest: RRR, Normal S1, S2, distal pulses intact. Resp: Lungs clear to auscultation bilaterally, no wheezes, rales, or rhonchi. Abdomen: Soft, non-distended, Normoactive bowel sounds all 4 quads.Bleeding noted from Ileostomy. Dark Maroon blood. Small punctate area of continuous squirt of blood at approximately 5 o' clock. Musculoskeletal: Normal gait, 5/5 strength to all four extremities. Skin: No suspicious rashes or lesions. Capillary refill less than 2 sec. Neurologic: Cranial nerves II-XII intact. Alert and oriented x 3. Motor: No deficits noted. Sensory: Intact bilaterally all 4 extremities. Reflexes: DTR's intact bilaterally.. Hematologic/Lymphatic: No ecchymosis, no lymphadenopathy. GI Inspection: other (Ileostomy stoma noted with dark maroon blood in bag. ) Course Vital Signs Vital signs: Vital Signs Temperature 36.6 C 06/03/23 19:21 Pulse 67 06/03/23 19:21 Respiratory Rate 20 06/03/23 19:21 Blood Pressure 149/75 H 06/03/23 19:21 Pulse Oximetry 99 06/03/23 19:21 Temperature 36.6 C 06/03/23 19:21 Temperature Source Oral 06/03/23 19:21 Pulse 67 06/03/23 19:21 Respiratory Rate 20 06/03/23 19:21 Blood Pressure 149/75 H 06/03/23 19:21 Blood Pressure Position Sitting 06/03/23 19:21 Pulse Oximetry 99 06/03/23 19:21 Oxygen Delivery Method Room Air 06/03/23 19:21 Oxygen Flow Rate 0 06/03/23 19:21 Procedures Other Description: Hemorrhage control. Cauterization used and TXA topical with pressure dressing. Patient had a small ultrasound right continuous venous squirt.
[2023-06-03 20:21] LABS: Abs Immature Grans 0.02 10^3/uL (0.0-0.06); Absolute Basophil Count 0.03 10^3/uL (0.0-0.2); Absolute Eosinophil Count 0.08 10^3/uL (0.0-0.7); Absolute Lymphocyte Count 1.31 10^3/uL (1.2-3.4); Absolute Monocyte Count 0.39 10^3/uL (0.1-0.8); Absolute Neutrophil Count 3.91 10^3/uL (1.2-6.7); Basophils % 0.5; Eosinophils % 1.4; HCT 32.2 % (36.0-46.0); HGB 10.6 g/dL (11.2-15.7); Immature Grans % 0.3; Lymphocytes % 22.8; MCH 29.7 pg (27.0-33.0); MCHC 32.9 % (32.0-36.0); MCV 90 fL (80-95); MPV 9.1 fL (8.0-11.0); Monocytes % 6.8; Neutrophils % 68.2; Platelet Count 99 10^3/uL (130-400); RBC 3.57 10^6/uL (3.93-5.22); RDW 14.3 % (11.7-14.6); RDW-SD 47.7 fL; WBC 5.74 10^3/uL (4.4-10.8)
[2023-06-03 20:33] LABS: PTT Activated 22.8 sec (21.5-31.9); Prothrombin Time 10.2 sec (9.3-11.0)
[2023-06-03 20:37] LABS: Bilirubin Negative (Negative); Blood Negative (Negative); Clarity Sl Cloudy (Clear); Glucose Negative (Negative); Ketones Negative (Negative); Leukocyte Esterase Moderate (Negative); Nitrite Negative (Negative); Urobilinogen 0.2 mg/dL (Up to 0.2); pH 5.5 (5-8)
[2023-06-03 20:38] LABS: ALT 17 U/L (14-59); AST 21 U/L (15-37); Albumin 3.4 g/dL (3.4-5.0); Alkaline Phosphatase 71 U/L (46-116); Anion Gap 12.1 mmol/L (3-11); BUN 24 mg/dL (7-18); Bilirubin, Total 1.4 mg/dL (0.2-1.0); CO2 21.9 mmol/L (21.0-32.0); CREATININE 1.9 mg/dL (0.55-1.02); Calcium 9.5 mg/dL (8.5-10.1); Chloride 110 mmol/L (98-107); Glucose 143 mg/dL (74-106); Magnesium 1.5 mg/dL (1.8-2.4); Potassium 4.5 mmol/L (3.5-5.1); Sodium 144 mmol/L (136-145); Total Protein 6.8 g/dL (6.4-8.2); Troponin I < 50 ng/L (<or=60)
[2023-06-03 20:43] LABS: Bacteria Moderate HPF (Negative); C & S Indicated? No/Sq. Contamination; Casts Negative LPF (Negative); Crystals Negative HPF (Negative); Epithelial Cells Many HPF (Negative); Mucus Trace (Negative); Other Cells Few Transitional (Negative); RBC Negative HPF (0-2)
== END 2023-06-03 22:25 | disposition home or self-care (01) ==
PROVIDERS: Emergency Provider Registered Nurse Emergency; PCP Legal Medicine
DX: K94.11 Enterostomy hemorrhage (principal); K94.03 Colostomy malfunction
CPT/HCPCS: 80053; 86850; 86900; 86901; 93005; 99283; 81003; 81015; 83735; 84484; 85025; 85610; 85730; 86870; 86902; 93010

== ENCOUNTER 2023-06-04 10:28 | Emergency (ER) | payer MEDICARE, BC, SELFPAY ==
[2023-06-04] VITALS (25 sets, daily range): BP systolic 137–157; BP diastolic 39–69; PULSE 59–88; RESP 12–26; TEMP 36.6; O2SAT 94–99
--- NOTE | 2023-06-04 10:30 | RT.EKG_ITS ---
APPROVED REPORT Exam: Resting ECG Reason for Exam: dizzy Patient Location: E HR:62 bpm ECG Measurements Heart Rate [address] 186 P [id number] QRSd 129 QRS -45 QT 436 T 32 QTc 442 Conclusion Atrial-paced complexes...other complexes also detected RBBB and LAFB...QRSd >120mS, axis(-40,240) Probable left ventricular hypertrophy...(RaVL+SV3)xQRSd >300 sinus rhythm, left axis, RBBB
[2023-06-04 11:42] LABS: Abs Immature Grans 0.02 10^3/uL (0.0-0.06); Absolute Basophil Count 0.03 10^3/uL (0.0-0.2); Absolute Eosinophil Count 0.04 10^3/uL (0.0-0.7); Absolute Lymphocyte Count 0.96 10^3/uL (1.2-3.4); Absolute Monocyte Count 0.37 10^3/uL (0.1-0.8); Absolute Neutrophil Count 3.22 10^3/uL (1.2-6.7); Basophils % 0.6; Eosinophils % 0.9; HCT 30.6 % (36.0-46.0); HGB 10.1 g/dL (11.2-15.7); Immature Grans % 0.4; Lymphocytes % 20.7; MCH 29.6 pg (27.0-33.0); MCV 90 fL (80-95); MPV 8.8 fL (8.0-11.0); Neutrophils % 69.4; RBC 3.41 10^6/uL (3.93-5.22); RDW 14.5 % (11.7-14.6); RDW-SD 47.6 fL; WBC 4.64 10^3/uL (4.4-10.8)
[2023-06-04 11:51] LABS: Prothrombin Time 10.4 sec (9.3-11.0)
[2023-06-04 12:09] LABS: ALT 16 U/L (14-59); AST 19 U/L (15-37); Albumin 3.2 g/dL (3.4-5.0); Alkaline Phosphatase 68 U/L (46-116); BUN 24 mg/dL (7-18); Bilirubin, Total 1.6 mg/dL (0.2-1.0); CREATININE 1.8 mg/dL (0.55-1.02); Calcium 9.2 mg/dL (8.5-10.1); Chloride 113 mmol/L (98-107); Glucose 159 mg/dL (74-106); Magnesium 1.5 mg/dL (1.8-2.4); Potassium 4.2 mmol/L (3.5-5.1); Sodium 145 mmol/L (136-145); TSH (W/Ref FT4) 1.56 uIU/mL (0.36-3.74); Total Protein 6.5 g/dL (6.4-8.2); Troponin I < 50 ng/L (<or=60)
[2023-06-04 12:17] LABS: Platelet Count 92 10^3/uL (130-400)
[2023-06-04 12:18] LABS: Diff Comment PLT Morph Reviewed; RBC Morphology Normal
[2023-06-04] MEDS: Normal Saline 1,000 ML 1000 ML IV (12:29)
[2023-06-04] MEDS: MAGNESIUM SULFATE 1 GM/100 ML BAG IVPB (12:39)
[2023-06-04 13:36] LABS: Bilirubin Negative (Negative); Blood Negative (Negative); Clarity Clear (Clear); Glucose Negative (Negative); Ketones Negative (Negative); Leukocyte Esterase Small (Negative); Nitrite Negative (Negative); Specific Gravity 1.015 (1.005-1.025); Urobilinogen 0.2 mg/dL (Up to 0.2)
--- NOTE | 2023-06-04 13:49 | ED.GENADUL_ITS ---
Discharge Plan Disposition Patient Disposition: Home Discharge Details Clinical Impression: Colostomy malfunction, Hypomagnesemia Primary Care Provider: Dede Miller ED Provider: Bonnie Finn Home Meds and New Rx's Prescriptions: New magnesium 250 mg tablet 250 mg PO DAILY Qty: 20 0RF Continued gabapentin 600 MG tablet 600 mg PO BID metoprolol succinate 100 MG tablet extended release 24 hr 100 mg PO QPM Discharge Instructions Instructions: Hypomagnesemia (ED) Additional Instructions: Please follow-up with your primary care physician Your labs today are similar to your labs yesterday, make sure you keep yourself hydrated Use caution when going from sitting to standing Return earlier should you have new or worsening complaints Your urinalysis does not show obvious evidence of infection Your magnesium was found to be low, please take magnesium supplementation Referrals: Bonnie Finn PA [Emergency Provider] - Discharge Data Discharge Date/Time-TO BE ENTERED AT DEPARTURE: 06/04/23 14:26 Medical Decision Making 87-year-old female presents for repeat visit after colostomy bag had site of skin breakdown and the site was treated by provider yesterday with TXA and a dressing Colostomy bag leaking today and patient feeling lightheaded so colostomy bag was changed, site is not actively bleeding, patient appears well, after fluids and sustenance, patient is feeling symptomatically improved, no orthostatic negative, ambulatory with steady gait, vital stable, nonfocal neurological exam While this patient does have multiple comorbidities she seems to be stable for discharge home, she is encouraged to follow-up with her primary care physician and surgery as needed for colostomy Return precautions reviewed, vitals compared and labs compared to prior, no significant anemia, hemoglobin and hematocrit unchanged, platelet count unchanged glucose within normal limits, magnesium was 1.5, this was supplemented with 1 g of magnesium and magnesium supplementation for home urinalysis does not show evidence of obvious infection, she does have red blood cells, she is encouraged to follow-up with her primary care physician regarding this finding HPI General Date/Time Provider Initiated Documentation: 06/04/23 10:48 . HPI Narrative: This 87-year-old female with multiple comorbidities including chronic anticoagulation and colostomy secondary to colon cancer presents for report of feeling lightheaded since this morning. She is status post assessment last evening for bleeding around her colostomy site and is wondering if she is anemic. She denies any falls or injuries. She denies any sensation of movement in the room or room spinning around her. She states she more feels like if she stands up too quickly she might pass out. She denies falling or syncopal events. Related Data Home Medications Medication Instructions Recorded Confirmed gabapentin 600 mg tablet 600 mg PO BID 09/16/16 06/06/23 metoprolol succinate 100 mg 100 mg PO QPM 03/13/18 06/06/23 tablet,extended release 24 hr magnesium 250 mg tablet 250 mg PO DAILY #20 tabs 06/04/23 06/06/23 Previous Rx's Medication Instructions Recorded magnesium 250 mg tablet 250 mg PO DAILY #20 tabs 06/04/23 Allergies Allergy/AdvReac Type Severity Reaction Status Date / Time No Known Allergies Allergy Unverified 06/03/23 19:27 General Stated Complaint: Dizzy/Sync LETI: 3 PFSH All Active Problems (Updated 06/04/23 @ 13:54 by HUNTER Alaniz) Gastric bleeding (Acute) Colostomy malfunction (Acute) Hypomagnesemia (Acute) PSVT (paroxysmal supraventricular tachycardia) (Acute) At high risk for skin breakdown (Acute) Parastomal ulcer of enterostomy (Acute) Elevated troponin (Acute) 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 (Acute) Abn react-external stoma (Acute) Pacemaker (Chronic) Elevated serum creatinine (Acute) Chronic pain in left foot (Acute) Hypercholesterolemia (Acute) Anemia due to GI blood loss (Acute) Medical History Breast cancer Remains RADHA Cirrhosis CKD (chronic kidney disease), stage III Colon cancer H/O malignant neoplasm of colon History of breast cancer Hypertension Ischemic neuropathy of foot CONTRERAS (nonalcoholic steatohepatitis) PAD (peripheral artery disease) Paroxysmal atrial fibrillation Surgical History 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 [facility] [place] Colostomy Hemicolectomy (06/30/13) Right, due to colonic perforation from adenocarcinoma of transverse colon Social History Smoking/Tobacco Use Status: Never Smoking risk assessment performed?: Yes Alcohol Intake: never Drug use: Never Housing: house Do you feel safe at home: Yes Do you feel safe in your relationship?: Yes Exam Narrative Exam Narrative: Patient is calm and cooperative, no acute distress, appears chronically ill Pupils equal round reactive light accommodation, lungs clear to auscultation, cardiac rate regular, no abdominal tenderness, colostomy bag leaking, no visible bleeding, alert and oriented x4, cranial nerves II through XII intact, negative [id number], negative pronator shift, negative heel dominguez, ambulatory with steady gait slow, neurovascularly intact with no peripheral edema Course Vital Signs Vital signs: Vital Signs Temperature 36.6 C 06/04/23 10:35 Pulse 67 06/04/23 10:35 Respiratory Rate 18 06/04/23 10:35 Blood Pressure 139/65 06/04/23 10:35 Pulse Oximetry 98 06/04/23 10:35 Temperature 36.6 C 06/04/23 10:35 Temperature Source Oral 06/04/23 10:35 Pulse 72 06/04/23 11:04 Respiratory Rate 16 06/04/23 11:04 Respiratory Effort Normal 06/04/23 12:43 Respiratory Depth Normal 06/04/23 11:09 Respiratory Pattern Normal 06/04/23 12:43 Blood Pressure 137/39 L 06/04/23 11:04 Pulse Oximetry 99 06/04/23 11:04 Oxygen Delivery Method Room Air 06/04/23 11:04 Oxygen Flow Rate 0 06/04/23 11:04 Pain Level 0 06/04/23 10:35 Lab/Test Results Lab/Test Results: Laboratory Tests Range/Units 06/04/23 06/04/23 06/04/23 11:30 11:30 11:30 WBC (4.4-10.8) 10^3/uL 4.64 RBC (3.93-5.22) 10^6/uL 3.41 L Hgb (11.2-15.7) g/dL 10.1 L Hct (36.0-46.0) % 30.6 L MCV (80-95) fL 90 MCH (27.0-33.0) pg 29.6 MCHC (32.0-36.0) % 33.0 RDW (11.7-14.6) % 14.5 Plt Count (130-400) 10^3/uL 92 L MPV (8.0-11.0) fL 8.8 Immature Gran % 0.4 Neutrophils % 69.4 Lymphocytes % 20.7 Monocytes % 8.0 Eosinophils % 0.9 Basophils % 0.6 Nucleated RBC % (0.0-0.3) % 0.0 Absolute Neutrophils (1.2-6.7) 10^3/uL 3.22 Absolute Lymphocytes (1.2-3.4) 10^3/uL 0.96 L Absolute Monocytes (0.1-0.8) 10^3/uL 0.37 Absolute Eosinophils (0.0-0.7) 10^3/uL 0.04 Absolute Basophils (0.0-0.2) 10^3/uL 0.03 RBC Morphology Normal PT (9.3-11.0) sec 10.4 INR (0.9-1.1) 1.0 Sodium (136-145) mmol/L 145 Potassium (3.5-5.1) mmol/L 4.2 Chloride (98-107) mmol/L 113 H Carbon Dioxide (21.0-32.0) mmol/L 20.0 L Anion Gap (3-11) mmol/L 12.0 H BUN (7-18) mg/dL 24 H Creatinine (0.55-1.02) mg/dL 1.8 H Est GFR (CKD-EPI 2020) (mL/min/1.73m2) 27.10 Glucose (74-106) mg/dL 159 H Calcium (8.5-10.1) mg/dL 9.2 Magnesium (1.8-2.4) mg/dL 1.5 L Total Bilirubin (0.2-1.0) mg/dL 1.6 H AST (15-37) U/L 19 ALT (14-59) U/L 16 Alkaline Phosphatase (46-116) U/L 68 Troponin I (<or=60) ng/L < 50 Total Protein (6.4-8.2) g/dL 6.5 Albumin (3.4-5.0) g/dL 3.2 L TSH (0.36-3.74) uIU/mL 1.56 Urine Color (Yellow) Urine Clarity (Clear) Urine pH (5-8) Ur Specific [place] (1.005-1.025) Urine Protein (Negative) mg/dL Urine Ketones (Negative) mg/dL Urine Blood (Negative) Urine Nitrite (Negative) Urine Bilirubin (Negative) Urine Urobilinogen (Up to 0.2) mg/dL Ur Leukocyte Esterase (Negative) Urine Glucose (Negative) mg/dL Patient ABO/Rh Antibody Screen Range/Units 06/04/23 06/04/23 06/04/23 11:30 12:03 13:30 WBC (4.4-10.8) 10^3/uL RBC (3.93-5.22) 10^6/uL Hgb (11.2-15.7) g/dL Hct (36.0-46.0) % MCV (80-95) fL MCH (27.0-33.0) pg MCHC (32.0-36.0) % RDW (11.7-14.6) % Plt Count (130-400) 10^3/uL MPV (8.0-11.0) fL Immature Gran % Neutrophils % Lymphocytes % Monocytes % Eosinophils % Basophils % Nucleated RBC % (0.0-0.3) % Absolute Neutrophils (1.2-6.7) 10^3/uL Absolute Lymphocytes (1.2-3.4) 10^3/uL Absolute Monocytes (0.1-0.8) 10^3/uL Absolute Eosinophils (0.0-0.7) 10^3/uL Absolute Basophils (0.0-0.2) 10^3/uL RBC Morphology PT (9.3-11.0) sec INR (0.9-1.1) Sodium (136-145) mmol/L Potassium (3.5-5.1) mmol/L Chloride (98-107) mmol/L Carbon Dioxide (21.0-32.0) mmol/L Anion Gap (3-11) mmol/L BUN (7-18) mg/dL Creatinine (0.55-1.02) mg/dL Est GFR (CKD-EPI 2020) (mL/min/1.73m2) Glucose (74-106) mg/dL Calcium (8.5-10.1) mg/dL Magnesium (1.8-2.4) mg/dL Total Bilirubin (0.2-1.0) mg/dL AST (15-37) U/L ALT (14-59) U/L Alkaline Phosphatase (46-116) U/L Troponin I (<or=60) ng/L Total Protein (6.4-8.2) g/dL Albumin (3.4-5.0) g/dL TSH (0.36-3.74) uIU/mL Cancelled Urine Color (Yellow) Yellow Urine Clarity (Clear) Clear Urine pH (5-8) 5.0 Ur Specific [place] (1.005-1.025) 1.015 Urine Protein (Negative) mg/dL Negative Urine Ketones (Negative) mg/dL Negative Urine Blood (Negative) Negative Urine Nitrite (Negative) Negative Urine Bilirubin (Negative) Negative Urine Urobilinogen (Up to 0.2) mg/dL 0.2 Ur Leukocyte Esterase (Negative) Small H Urine Glucose (Negative) mg/dL Negative Patient ABO/Rh A Positive Antibody Screen POSITIVE
[2023-06-04 13:52] LABS: Epithelial Cells Moderate HPF (Negative)
[2023-06-04 13:53] LABS: Bacteria Negative HPF (Negative); C & S Indicated? No/Sq. Contamination; Casts 0-2 Hyaline LPF (Negative); Crystals Negative HPF (Negative); Mucus Negative (Negative); Other Cells Rare Transitional (Negative)
--- NOTE | 2023-06-04 13:54 | NUR.NOTE ---
Nursing Note:this RN assisted patient in colostomy bag change. Patient had a pre-cut colostomy bag that she cut at home - was too big for her stoma site. This RN cut dressing to 45mm- fit right around stoma with no skin showing. Used patient supplied stoma powder and skin prep wipe. RN educated patient on the importance of sizing for her colostomy dressing. Patient verbalized her understanding and taught RN back on the correct procedure.
== END 2023-06-04 14:26 | disposition home or self-care (01) ==
PROVIDERS: Emergency Provider Physician Assistant; PCP Legal Medicine
DX: K94.03 Colostomy malfunction (principal); E83.42 Hypomagnesemia; R42 Dizziness and giddiness
CPT/HCPCS: 80053; 86850; 86900; 86901; 93005; 96365; 99284; 81003; 81015; 83735; 84443; 84484; 85025; 85610; 86870; 93010; J3475

== ENCOUNTER 2023-06-09 20:22 | Emergency (ER) | payer MEDICARE, BC, SELFPAY ==
[2023-06-09 20:26] VITALS: BP 134/66; PULSE 72; RESP 18; TEMP 36.5; O2SAT 97
--- NOTE | 2023-06-09 20:49 | W.ED.GENAD ---
Discharge Plan Disposition Patient Disposition: Home Condition: Stable Discharge Details Clinical Impression: 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 Primary Care Provider: Dede Miller ED Provider: Mike Landeros Meds and New Rx's Prescriptions: Continued gabapentin 600 MG tablet 600 mg PO BID magnesium 250 mg tablet 250 mg PO DAILY Qty: 20 0RF metoprolol succinate 100 MG tablet extended release 24 hr 100 mg PO QPM Discharge Instructions Referrals: Christina Rajan DO [OSTEOPATHIC DOCTOR] - 1 day Discharge Data Discharge Physician: Mike Landeros Medical Decision Making MDM: Summary: Patient presents emergency department for a third time and states that she has been here twice in the last 2 weeks stating that he has some blood in the stoma. On physical exam you do see some venous blood in the stoma but there is no active bleeding at this time. Labs were done which she has a stable hemoglobin hematocrit was exactly the same as the previous 1 with also BUN and creatinine the same and electrolytes the same. Patient definitely needs a referral to surgery to see where is she bleeding and the need of cauterization. She states that she was cauterized here in the emergency department but did not follow with the surgeon. I will get her an appointment so she can follow with the surgeon tomorrow or the following day. Patient is stable and wants to be discharged home Data Review Analysis All the data on this patient was reviewed by me including laboratory and imaging studies as well as bedside studies performed by me Independent review of Studies Imaging no imaging Lab: Labs are unremarkable and although she is anemic they are the same as the ones obtained a week ago and actually better Risk Stratification: Patient with most likely bleeding from the stoma which is a very slow bleed has been her twice she does not need to be admitted at this time for she is hemodynamically stable and her hemoglobin hematocrit have not dropped. Patient will follow-up tomorrow with surgery Differential Diagnosis: 1. Stoma bleed 2. GI bleed 3. Anemia 4. 5. Consultants: Shared disposition: Patient will follow up with Dr. Christina Nunez tomorrow Impression: Lab Data Lab results reviewed: Yes I reviewed the patient's lab results. HPI General Date/Time Provider Initiated Documentation: 06/09/23 20:25. HPI Narrative: Patient presents emergency department stating that she has been here 3 times for she has bleeding from the colostomy bag. States that today earlier she emptied the bag and there was about 10 mL of maroon blood. She states that she was seen by the surgeon here and she was supposed to follow but they have not called her and she does not know what to do. Denies any chills shortness of breath denies any nausea denies any vomiting denies any hematemesis Related Data Home Medications Medication Instructions Recorded Confirmed gabapentin 600 mg tablet 600 mg PO BID 09/16/16 06/06/23 metoprolol succinate 100 mg 100 mg PO QPM 03/13/18 06/06/23 tablet,extended release 24 hr magnesium 250 mg tablet 250 mg PO DAILY #20 tabs 06/04/23 06/06/23 Previous Rx's Medication Instructions Recorded magnesium 250 mg tablet 250 mg PO DAILY #20 tabs 06/04/23 Allergies Allergy/AdvReac Type Severity Reaction Status Date / Time No Known Allergies Allergy Unverified 06/03/23 19:27 General Stated Complaint: GenMedical LETI: 3 Review of Systems Narrative: Review of Systems: Constitutional: No fevers, chills, sweats Eye: No recent visual problems ENT: No ear pain, nasal congestion, sore throat Respiratory: No shortness of breath, cough Cardiovascular: No Chest pain, palpitations, syncope Gastrointestinal: No nausea, vomiting, diarrhea Genitourinary: No hematuria Darrell/Lymph: Negative for bruising tendency, swollen lymph glands Endocrine: Negative for excessive thirst, excessive hunger Musculoskeletal: No back pain, neck pain, joint pain, muscle pain, decreased range of motion Integumentary: No rash, pruritus, abrasions Neurologic: Alert & oriented X 4 Psychiatric: No anxiety, depression PFSH All Active Problems (Updated 06/09/23 @ 22:18 by Mike Landeros MD) Gastric bleeding (Acute) Colostomy malfunction (Acute) Hypomagnesemia (Acute) PSVT (paroxysmal supraventricular tachycardia) (Acute) At high risk for skin breakdown (Acute) Parastomal ulcer of enterostomy (Acute) Elevated troponin (Acute) 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 (Acute) Abn react-external stoma (Acute) Pacemaker (Chronic) Elevated serum creatinine (Acute) Chronic pain in left foot (Acute) Hypercholesterolemia (Acute) Anemia due to GI blood loss (Acute) Medical History Breast cancer Remains RADHA Cirrhosis CKD (chronic kidney disease), stage III Colon cancer H/O malignant neoplasm of colon History of breast cancer Hypertension Ischemic neuropathy of foot CONTRERAS (nonalcoholic steatohepatitis) PAD (peripheral artery disease) Paroxysmal atrial fibrillation Surgical History 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 Social History Smoking/Tobacco Use Status: Never Smoking risk assessment performed?: Yes Alcohol Intake: never Drug use: Never Housing: house Do you feel safe at home: Yes Do you feel safe in your relationship?: Yes Exam Narrative Exam Narrative: Exam; vitals signs as reported above normal Constitutional; In no acute distress, afebrile General: cooperative, healthy appearing, comfortable and no acute distress HEENT: Head: normal to inspection, no palpable skull fracture and normocephalic atraumatic Eyes: l: appearance normal, both eyes and all related structures Pupils: PERRL : EOM intact bilaterally Direct ophthalmoscopy: normal light reflex, normal conjunctiva, normal visual acuity Neck no JVD, supple non tender Neck: normal visual inspection, full ROM and no lymphadenopathy Chest: normal inspection of the chest Respiratory : normal respiratory effort and able to speak in complete sentences no wheezing no rales Cardio Rate: regular rate Rhythm: regular rhythm normal heart sounds S1 and S2 no murmurs, gallops, or rubs GI : normal to inspection, normal bowel sounds, soft, non tender, non distended, no organomegaly colostomy has maroon blood in the bag about 5 all labs mL Back/Spine/ no CVA tenderness Thoracic/Lumbar Spine: no tenderness or deformities Skin no rashes or lesions Neuro: patient alert and no meningeal signs, Cranial Nerves: CN's II-XI intact bilaterally, Cognition: normal cognition, Speech: speech normal, Gait: normal gait, Depp tendon reflexes normal 2+ Extremities, no edema, full range of motion, normal strength Course Vital Signs Vital signs: Vital Signs Temperature 36.5 C 06/09/23 20:26 Pulse 72 06/09/23 20:26 Respiratory Rate 18 06/09/23 20:26 Blood Pressure 134/66 06/09/23 20:26 Pulse Oximetry 97 06/09/23 20:26 Temperature 36.5 C 06/09/23 20:26 Pulse 72 06/09/23 20:26 Respiratory Rate 18 06/09/23 20:26 Blood Pressure 134/66 06/09/23 20:26 Pulse Oximetry 97 06/09/23 20:26 Oxygen Delivery Method Room Air 06/09/23 20:26 Oxygen Flow Rate 0 06/09/23 20:26 Vital Signs & Lab Results Vital Signs Most Recent Vital Signs: Most Recent Vital Signs Temp Pulse Resp BP Pulse Ox 36.5 C 72 16 134/66 97 06/09/23 20:26 06/09/23 20:26 06/09/23 21:13 06/09/23 20:26 06/09/23 20:26 Point of Care Results Nursing Point of Care Results: No Data to Display Lab Results 06/09/23 21:20 06/09/23 21:20 Blood Type / Crossmatch: Patient ABO/Rh A Positive 06/04/23 Antibody Screen POSITIVE 06/04/23 Complete Blood Count: White Blood Count 6.09 10^3/uL (4.4-10.8) 06/09/23 21:20 Red Blood Count 3.57 10^6/uL (3.93-5.22) L 06/09/23 21:20 Hemoglobin 10.5 g/dL (11.2-15.7) L 06/09/23 21:20 Hematocrit 32.2 % (36.0-46.0) L 06/09/23 21:20 Platelet Count 101 10^3/uL (130-400) L 06/09/23 21:20 Complete Metabolic Panel: Sodium 141 mmol/L (136-145) 06/09/23 21:20 Potassium 4.2 mmol/L (3.5-5.1) 06/09/23 21:20 Chloride 107 mmol/L (98-107) 06/09/23 21:20 Carbon Dioxide 23.7 mmol/L (21.0-32.0) 06/09/23 21:20 BUN 23 mg/dL (7-18) H 06/09/23 21:20 Creatinine 2.1 mg/dL (0.55-1.02) H 06/09/23 21:20 Est GFR (CKD-EPI 2020) 22.52 (mL/min/1.73m2) 06/09/23 21:20 Magnesium 1.7 mg/dL (1.8-2.4) L 06/09/23 21:20 Calcium 9.4 mg/dL (8.5-10.1) 06/09/23 21:20 Albumin 3.4 g/dL (3.4-5.0) 06/09/23 21:20 Glucose 232 mg/dL (74-106) H 06/09/23 21:20 Liver Function Panel: Alanine Aminotransferase (ALT/SGPT) 17 U/L (14-59) 06/09/23 21:20 Aspartate Amino Transf (AST/SGOT) 23 U/L (15-37) 06/09/23 21:20 Coagulation Panel: INR International Normalized Ratio 1.0 (0.9-1.1) 06/09/23 21:20 Prothrombin Time 10.5 sec (9.3-11.0) 06/09/23 21:20 Activated Partial Thromboplast Time 22.8 sec (21.5-31.9) 06/03/23 20:08 Cardiac Panel: Troponin I < 50 ng/L (<or=60) 06/09/23 Arterial Blood Gas: No Data to Display Venous Blood Gas: No Data to Display Pancreas Panel: Lipase 84 U/L (16-77) H 06/09/23 21:20 Thyroid Panel: Thyroid Stimulating Hormone (TSH) 1.56 uIU/mL (0.36-3.74) 06/04/23 11:30 Infectious Disease: No Data to Display Blood Cultures: No Data to Display Toxicology Panel: No Data to Display
[2023-06-09 21:13] VITALS: RESP 16
[2023-06-09] MEDS: Pantoprazole 40 MG VIAL 80 MG IVP (21:34)
[2023-06-09] MEDS: Normal Saline 1,000 ML 1000 ML IV (21:34)
[2023-06-09 21:39] LABS: Abs Immature Grans 0.01 10^3/uL (0.0-0.06); Absolute Basophil Count 0.03 10^3/uL (0.0-0.2); Absolute Eosinophil Count 0.06 10^3/uL (0.0-0.7); Absolute Lymphocyte Count 1.17 10^3/uL (1.2-3.4); Absolute Monocyte Count 0.42 10^3/uL (0.1-0.8); Basophils % 0.5; HCT 32.2 % (36.0-46.0); HGB 10.5 g/dL (11.2-15.7); Immature Grans % 0.2; Lymphocytes % 19.2; MCH 29.4 pg (27.0-33.0); MCHC 32.6 % (32.0-36.0); MCV 90 fL (80-95); MPV 10.1 fL (8.0-11.0); Monocytes % 6.9; Neutrophils % 72.2; Platelet Count 101 10^3/uL (130-400); RBC 3.57 10^6/uL (3.93-5.22); RDW 14.2 % (11.7-14.6); RDW-SD 46.7 fL; WBC 6.09 10^3/uL (4.4-10.8)
[2023-06-09 21:46] LABS: ALT 17 U/L (14-59); AST 23 U/L (15-37); Albumin 3.4 g/dL (3.4-5.0); Alkaline Phosphatase 75 U/L (46-116); Anion Gap 10.3 mmol/L (3-11); BUN 23 mg/dL (7-18); Bilirubin, Total 1.4 mg/dL (0.2-1.0); CO2 23.7 mmol/L (21.0-32.0); CREATININE 2.1 mg/dL (0.55-1.02); Calcium 9.4 mg/dL (8.5-10.1); Chloride 107 mmol/L (98-107); Estimated GFR 22.52 (mL/min/1.73m2); Glucose 232 mg/dL (74-106); Lipase 84 U/L (16-77); Magnesium 1.7 mg/dL (1.8-2.4); Potassium 4.2 mmol/L (3.5-5.1); Sodium 141 mmol/L (136-145); Total Protein 6.7 g/dL (6.4-8.2); Troponin I < 50 ng/L (<or=60)
[2023-06-09 21:57] LABS: Prothrombin Time 10.5 sec (9.3-11.0)
--- NOTE | 2023-06-09 22:14 | NUR.NOTE ---
Referral faxed to [facility] to f/u wendy, 06/10/23 if at all possible for bleeding from colostomy stoma.Nursing Note:
== END 2023-06-09 22:42 | disposition home or self-care (01) ==
PROVIDERS: Emergency Provider Emergency Medicine Emergency Medical Services; PCP Legal Medicine
DX: K94.11 Enterostomy hemorrhage (principal); I12.9 Hypertensive chronic kidney disease with stage 1 through stage 4 chronic kidney disease, or unspecified chronic kidney disease; N18.30 Chronic kidney disease, stage 3 unspecified; I48.0 Paroxysmal atrial fibrillation; Z95.0 Presence of cardiac pacemaker; Z79.899 Other long term (current) drug therapy
CPT/HCPCS: 80053; 83690; 86850; 86900; 86901; 96360; 99283; 83735; 84484; 85025; 85610; 86870; 99282

== ENCOUNTER → 2023-06-11 12:56 | Outpatient (BNVA) | payer MEDICARE, BC, SELFPAY | PROVIDERS: PCP Legal Medicine; Referring Provider Legal Medicine; Visit Provider Surgery | DX: K94.03 Colostomy malfunction (principal); K94.19 Other complications of enterostomy; Y83.3 Surgical operation with formation of external stoma as the cause of abnormal reaction of the patient, or of later complication, without mention of misadventure at the time of the procedure; K74.60 Unspecified cirrhosis of liver; Z95.0 Presence of cardiac pacemaker | CPT/HCPCS: 99213 ==

== ENCOUNTER → 2023-06-18 09:37 | Outpatient (BNVA) | payer MEDICARE, BC, SELFPAY | PROVIDERS: PCP Legal Medicine; Referring Provider Legal Medicine; Visit Provider Surgery | DX: K94.11 Enterostomy hemorrhage (principal); K94.03 Colostomy malfunction; Y83.3 Surgical operation with formation of external stoma as the cause of abnormal reaction of the patient, or of later complication, without mention of misadventure at the time of the procedure; Z95.0 Presence of cardiac pacemaker | CPT/HCPCS: 99212; 99213 ==

== ENCOUNTER 2024-05-21 00:59 | Emergency (ER) | payer MEDICARE, BC, SELFPAY ==
[2024-05-21] VITALS (100 sets, daily range): BP systolic 88–149; BP diastolic 47–122; PULSE 63–153; RESP 11–23; TEMP 36.3–36.4; O2SAT 94–100
--- NOTE | 2024-05-21 00:45 | RT.EKG_ITS ---
APPROVED REPORT Exam: Resting ECG Reason for Exam: gi bleed Patient Location: E HR:70 bpm ECG Measurements Heart Rate 70 AXIS VA 179 P [id number] QRSd 135 QRS -54 QT 411 T 76 QTc 446 Conclusion Atrial-paced complexes...other complexes also detected RBBB and LAFB...QRSd >120mS, axis(-40,240) Probable left ventricular hypertrophy...(RaVL+SV3)xQRSd >300 ST elevation, consider inferior injury...ST >0.08mV, II III aVF no STEMI
[2024-05-21 01:11] LABS: Abs Immature Grans 0.96 10^3/uL (0.0-0.06); Basophils % 0.1 %; HCT 27.4 % (36.0-46.0); Immature Grans % 4.7 %; Lymphocytes % 18.2 %; MCHC 32.8 % (32.0-36.0); MCV 91 fL (80-95); MPV 9.6 fL (8.0-11.0); Monocytes % 4.1 %; Neutrophils % 72.9 %; Nucleated RBC 0.2 % (0.0-0.3); Platelet Count 178 10^3/uL (130-400); RDW 14.3 % (11.7-14.6); RDW-SD 47.8 fL; WBC 20.44 10^3/uL (4.4-10.8)
--- NOTE | 2024-05-21 01:11 | ED.GENADUL_ITS ---
Discharge Plan Disposition Patient Disposition: Transfer-Acute Inpatient Care Specific Acute Inpt Facility: [facility] Condition: Critical Discharge Details Chief Complaint: GI Bleed Clinical Impression: Coagulopathy, 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, Anemia due to GI blood loss, Shock circulatory Primary Care Provider: Dede Miller ED Provider: Adeline Steele Home Meds and New Rx's Prescriptions: No Action cholecalciferol (vitamin D3) 125 mcg (5,000 unit) capsule 125 mcg PO DAILY gabapentin 600 MG tablet 600 mg PO BID magnesium 250 mg tablet 250 mg PO DAILY Qty: 20 0RF metoprolol succinate 50 mg tablet extended release 24 hr 50 mg PO DAILY prednisone 10 mg tablet 10 mg PO BID Patient Comments: TAKE 3TABS BY MOUTH TWO TIMES A DAY FOR 2DAYS, 2TABS TWO TIMES A DAY FOR 2DAYS, 3TABS ONCE DAILY FOR 2DAYS, 2TABS FOR 2DAYS, 1TAB FOR 2DAYS HPI General Mode of arrival: ambulatory . Date/Time Provider Initiated Documentation: 05/21/24 01:11 . Limitations to Documentation: no limitations . Information obtained by: patient . HPI Narrative: 88yo F, colostomy, not on thinners, presents via EMS for blood from ostomy. Emptied full bag for bright red blood x3 times since 4pm Highest HR 80's lowest SBP 90's for EMS. Pt had chest pain earlier in the day but not currently. Feels bad, denies chest pain, shortness of breath, or presyncope. Related Data Home Medications Medication Instructions Recorded Confirmed gabapentin 600 mg tablet 600 mg PO BID 09/16/16 05/21/24 magnesium 250 mg tablet 250 mg PO DAILY #20 tabs 06/04/23 05/21/24 cholecalciferol (vitamin D3) 125 125 mcg PO DAILY 06/11/23 05/21/24 mcg (5,000 unit) capsule metoprolol succinate 50 mg 50 mg PO DAILY 05/21/24 05/21/24 tablet,extended release 24 hr prednisone 10 mg tablet 10 mg PO BID 05/21/24 05/21/24 Previous Rx's Medication Instructions Recorded magnesium 250 mg tablet 250 mg PO DAILY #20 tabs 06/04/23 Allergies Allergy/AdvReac Type Severity Reaction Status Date / Time No Known Allergies Allergy Unverified 05/21/24 01:02 General Stated Complaint: GI Bleed LETI: 2 Review of Systems Narrative: see HPI Exam Narrative Exam Narrative: General: Alert, in no acute distress. Head: Normocephalic, atraumatic. Conjuctival pallor. Neck: Trachea midline, ?Neck supple. ENT: ?MMM.? Cardiac: ?RRR, no murmurs appreciated Resp: No respiratory distress. CTAB. Abd: ?Soft, non-distended, nontender. Ostomy in place, bag full of alex dark red blood. : ?No suprapubic tenderness. Extremities: ?No deformities.? Neurologic: GCS 15. ? Moves all extremities freely against gravity Course Vital Signs Vital signs: Vital Signs Pulse 88 05/21/24 00:57 Respiratory Rate 22 05/21/24 00:57 Blood Pressure 88/60 L 05/21/24 00:57 Pulse Oximetry 98 05/21/24 00:57 Pulse 88 05/21/24 00:57 Respiratory Rate 22 05/21/24 00:57 Respiratory Effort Normal, Non-Labored 05/21/24 01:02 Blood Pressure 88/60 L 05/21/24 00:57 Blood Pressure Position Supine 05/21/24 00:57 Pulse Oximetry 98 05/21/24 00:57 Oxygen Delivery Method Room Air 05/21/24 00:57 Oxygen Flow Rate 0 05/21/24 00:57 Pain Level 0 05/21/24 00:57 Lab/Test Results Lab/Test Results: Laboratory Tests Range/Units 05/21/24 01:05 Crossmatch See Detail Medical Decision Making Patient reports emptying ostomy bag full of blood three times since 4pm this afternoon, last at 2200. Not on blood thinners. For EMS highest HR 80's lowest SBP 90's. Arrives with HR in 80's (on metoprolol, paced), borderline hypotension 80's/60's, paper white conjuctiva; on arrival she has a full ostomy bag, drained for ~500cc alex blood. Potentially 2L total blood loss with ongoing hemmroaghe. IV access obtained, labs sent; will give 2 units uncrossmatched blood. Mentating well and VS borderline; will not rapid transfuse at this time unless hemodynamics change. EKG with IVD, no acute ischemic changes, QRS 130's After blood initiated pt felt acutely unwell, lightheaded, HR spiked to 150's, regular, QRS morphology unchanged from prior on repeat EKG. Kershaw to representate compensatory tachycardia/karuk rhythm, not Vtach. With only 1 IV access, IO placed in LLE. Blood infused rapidly with improvement in symptoms and HR over next 10-15 minutes. Transfused total of 4U PRBCS emergent release blood thus far. Regrettably no platelets available (at least for 6 hours), began thawing FFP. Left IJ central line placed. Post-line film reviewed, position acceptable for emergent use. Additional 300cc blood in ostomy, followed by some brownish stool. Discussed goals of care with patient; she reports that she has been 'thinking about dying alot' and is 'read to go if it's my time'. Would not want chest compressions, shocks, or intubation. She would accept ICU level care or surgery if it would help. Taken to CT after vitals improved. Labs reviewed as below, CBC with marked leukocytosis, Hg 9.0, normal platelets. PTT markedly elevated at >155, CMP as below with mild hyperkalemai at 5.4, slight acidosis with bicarb 19, Cr at baseline on [facility] record review (2.3), bili 1.2 (baseline) [place] [facility] [place]; txa unlikely to be beneficial, accepted to medical ICU under Dr. Norman. While in CT SBP dropped to 80's. Transfused additional 2 units PRBC A+, FFP transfused. With massive transfusion, given IV calcium. BP improved after transfusion. CT independently reviewed, images pushed [place] [facility] Radiology read pending. Transferred via [facility] ground. Imaging Data Radiologic Study: Imaging: X-Ray Radiologist's impression: Left subclavian transvenous pacer remains in place with leads in right cardiac chambers. A left internal jugular central venous catheter has been positioned with its tip seen in the region of the brachiocephalic venous confluence IMPRESSION: Borderline cardiac size with central venous catheter seen in position as above. Radiologic Study #2: Imaging: CT Scan Lab Data Lab results reviewed: Yes I reviewed the patient's lab results. Labs: Laboratory Tests Range/Units 05/21/24 01:05 WBC (4.4-10.8) 10^3/uL 20.44 H RBC (3.93-5.22) 10^6/uL 3.00 L Hgb (11.2-15.7) g/dL 9.0 L Hct (36.0-46.0) % 27.4 L MCV (80-95) fL 91 MCH (27.0-33.0) pg 30.0 MCHC (32.0-36.0) % 32.8 RDW (11.7-14.6) % 14.3 Plt Count (130-400) 10^3/uL 178 MPV (8.0-11.0) fL 9.6 Immature Gran % % 4.7 Neutrophils % % 72.9 Lymphocytes % % 18.2 Monocytes % % 4.1 Eosinophils % % 0.0 Basophils % % 0.1 Nucleated RBC % (0.0-0.3) % 0.2 Absolute Neutrophils (1.2-6.7) 10^3/uL 14.90 H Absolute Lymphocytes (1.2-3.4) 10^3/uL 3.72 H Absolute Monocytes (0.1-0.8) 10^3/uL 0.84 H Absolute Eosinophils (0.0-0.7) 10^3/uL 0.00 Absolute Basophils (0.0-0.2) 10^3/uL 0.02 RBC Morphology Normal PT (9.1-11.1) sec 11.9 H INR (0.9-1.1) 1.2 H APTT (23.6-32.8) sec > 155.0 H* Sodium (136-145) mmol/L 133 L Potassium (3.5-5.1) mmol/L 5.4 H Chloride (98-107) mmol/L 102 Carbon Dioxide (21.0-32.0) mmol/L 19.7 L Anion Gap (3-11) mmol/L 11.3 H BUN (7-18) mg/dL 51 H Creatinine (0.55-1.02) mg/dL 2.3 H Est GFR (CKD-EPI 2020) (mL/min/1.73m2) 20.07 Glucose (74-106) mg/dL 250 H Calcium (8.5-10.1) mg/dL 8.9 Magnesium (1.8-2.4) mg/dL 1.7 L Total Bilirubin (0.2-1.0) mg/dL 1.19 H AST (15-37) U/L 29 ALT (14-59) U/L 38 Alkaline Phosphatase (46-116) U/L 49 Troponin I (< or =60) ng/L < 50 Total Protein (6.4-8.2) g/dL 5.9 L Albumin (3.4-5.0) g/dL 3.0 L Lipase (16-77) U/L 184 H ABO/Rh A Positive Antibody Screen NEGATIVE Crossmatch See Detail Quality:SDOH Health Related Social Needs: No Data to Display Critical Care Time Critical Care Time Critical Care Time: Yes Total Critical Care Time: 64 Attestation: Due to a high probability of clinically significant, life threatening dete rioration, the patient required my highest level of preparedness to intervene emergently and I personally spent this critical care time directly and personally managing the patient. This critical care time included obtaining a history; examining the patient; pulse oximetry; ordering and review of studies; arranging urgent treatment with development of a management plan; evaluation of patient's response to treatment; frequent reassessment; and, discussions with other providers. This critical care time was performed to assess and manage the high probability of imminent, life-threatening deterioration that could result in multi-organ failure. It was exclusive of separately billable procedures PFSH All Active Problems (Updated 05/21/24 @ 04:09 by Adeline Steele MD) Shock circulatory (Acute) Coagulopathy (Acute) PSVT (paroxysmal supraventricular tachycardia) (Acute) At high risk for skin breakdown (Acute) Parastomal ulcer of enterostomy (Acute) 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 (Acute) Abn react-external stoma (Acute) Pacemaker (Chronic) Elevated serum creatinine (Acute) Chronic pain in left foot (Acute) Hypercholesterolemia (Acute) Anemia due to GI blood loss (Acute) Medical History (Updated 05/21/24 @ 04:09 by Adeline Steele MD) Hypomagnesemia Elevated troponin H/O malignant neoplasm of colon History of breast cancer CKD (chronic kidney disease), stage III CONTRERAS (nonalcoholic steatohepatitis) Cirrhosis Ischemic neuropathy of foot PAD (peripheral artery disease) Colon cancer Hypertension Paroxysmal atrial fibrillation Breast cancer Remains RADHA Surgical History Hemicolectomy (06/30/13) Right, 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 [facility] [place] Social History Smoking/Tobacco Use Status: Never Smoking risk assessment performed?: Yes Alcohol Intake: never Drug use: Never Housing: house Do you feel safe at home: Yes Do you feel safe in your relationship?: Yes
[2024-05-21 01:13] LABS: Absolute Basophil Count 0.02 10^3/uL (0.0-0.2); Absolute Lymphocyte Count 3.72 10^3/uL (1.2-3.4); Absolute Monocyte Count 0.84 10^3/uL (0.1-0.8)
[2024-05-21 01:21] LABS: Diff Comment Agrees w/ Instrument; RBC Morphology Normal
[2024-05-21 01:25] LABS: INR 1.2 (0.9-1.1); Prothrombin Time 11.9 sec (9.1-11.1)
[2024-05-21 01:29] LABS: ALT 38 U/L (14-59); AST 29 U/L (15-37); Alkaline Phosphatase 49 U/L (46-116); Anion Gap 11.3 mmol/L (3-11); BUN 51 mg/dL (7-18); Bilirubin, Total 1.19 mg/dL (0.2-1.0); CO2 19.7 mmol/L (21.0-32.0); CREATININE 2.3 mg/dL (0.55-1.02); Calcium 8.9 mg/dL (8.5-10.1); Chloride 102 mmol/L (98-107); Estimated GFR 20.07 (mL/min/1.73m2); Glucose 250 mg/dL (74-106); Lipase 184 U/L (16-77); Magnesium 1.7 mg/dL (1.8-2.4); Potassium 5.4 mmol/L (3.5-5.1); Sodium 133 mmol/L (136-145); Total Protein 5.9 g/dL (6.4-8.2); Troponin I < 50 ng/L (< or =60)
--- NOTE | 2024-05-21 01:57 | DI.RAD_ITS ---
Exam(s) XR PORTABLE CHEST AP EXAM: XR PORTABLE CHEST AP CLINICAL HISTORY: post line TECHNIQUE: 2D digital imaging was performed. COMPARISON: None FINDINGS: Leads overlie the chest which show partially obscure the central venous catheter. Left sided pharmacy graduate intern al jugular catheter has been placed. The tip lies near the junction of brachiocephalic vein and SVC. . LUNGS: Fibrotic changes. Some vascular prominence. Pulmonary edema not excluded. There is no focal consolidation. No pleural abnormality seen. HEART: Enlarged. Pacemaker. AORTA: Normal diameter. BONES: Not well visualized. Soft tissues: Unremarkable. IMPRESSION: Satisfactory placement of central line. Question pulmonary edema versus fibrotic changes. DATA REPOSITORY: RADIATION DOSE DELIVERED:
[2024-05-21 01:58] LABS: PTT Activated > 155.0 sec (23.6-32.8)
--- NOTE | 2024-05-21 02:00 | DI.CT_ITS ---
Exam(s) CT ABDOMEN PELVIS W CT ABDOMEN PELVIS CTA EXAM: CT ABDOMEN PELVIS CTA CLINICAL HISTORY: massive active GI bleed. TECHNIQUE: Imaging Protocol: Axial CT angiography was performed with multi-slice acquisition and m ulti-planar and/or 3D reconstructions. CONTRAST MATERIAL: Intravenous: Omnipaque 350 Contrast volume:structured data in ml Oral: / no COMPARISON: No exams were available for comparison FINDINGS: Exam is limited by mild motion and streak artifact related arm positioning. Vascular Structures: Heart is enlarged. Pacemaker present. Celiac Catano:No evidence of stenosis. SMA: No evidence of stenosis. Renal Arteries: No evidence of stenosis. There is a single renal artery perfusing each kidney. Aorta: No aneurysm. No dissection. Heavily calcified. Iliac Arteries: Heavily calcified. Narrowing of proximal iliac arteries, right greater than left, s table from prior. Common Femoral Arteries: No evidence of stenosis. Soft Tissues:Right lower quadrant ostomy with parastomal hernia containing multiple loops of small an d large bowel. No change from prior. No evidence of obstruction. Diastasis of rectus abdominis mus cles, unchanged. Right mastectomy. Lung bases:No acute findings. Liver: Normal size. Nodular appearance. Could indicate cirrhosis. Similar to prior. Normal densit y. Stable area of low attenuation in the right lobe of the liver Gallbladder and biliary tract: Status post cholecystectomy. No gallbladder wall thickening. No bili tomás dilation. Pancreas: Stable cyst in body of pancreas. Normal density, no abnormal calcifications or inflammator y process. Spleen: Normal. Kidneys: Normal size, contour and axis. No obstructive uropathy. Stable bilateral renal cysts. No s uspicious masses seen. No evidence of calculi. Adrenal glands: No masses seen. Bladder: No gross wall thickening. No evidence of calculi. No evidence of mass. Bowel: No obstruction or bowel wall thickening. Diverticulosis. High-density material seen in rec clint and a few loops of small bowel. The findings could represent previously administered oral contra st or other high-density ingested material. The findings could also represent extravasated IV contra st related to GI bleed although no active source of bleeding is identified. The findings are unchang ed between arterial and venous examinations, making this less likely. Peritoneal cavity: No ascites. No focal collection. No mesenteric inflammatory response. Bones: No acute findings. Postsurgical and degenerative changes. Old T12 compression fracture. Lymph nodes: Within normal limits. Reproductive: Status post hysterectomy. No change circumscribed solid mass in the right lower pelvis . IMPRESSION: No focal source of GI bleeding identified. No findings to suggest bowel ischemia. Multiple chronic findings as mentioned above. RADIATION DOSE DELIVERED: Total DLP DATA REPOSITORY: All CT scans at this facility are submitted to the National Radiology Data Registry (NRDR) Dose Index Registry (DIR) with the [employer] (ACR). RADIATION OPTIMIZATION: All CT scans at this facility use at least one of these dose optimization te chniques: automated exposure control; mA and/or kV adjustment per patient size (includes targeted exa ms where dose is matched to clinical indication); or iterative reconstruction.
[2024-05-21] MEDS: Normal Saline - Diluent 50 ML VIAL IJ (02:24)
[2024-05-21] MEDS: Omnipaque 350 MG/ML 100 ML BTL IJ (02:24)
--- NOTE | 2024-05-21 02:28 | DI.VRAD_ITS ---
PROCEDURE INFORMATION: Exam: XR Chest Exam date and time: 05/21/2024 2:00 AM Age: 88 years old Clinical indication: Device placement; Other: Post line TECHNIQUE: Imaging protocol: Radiologic exam of the chest. Views: 1 view. COMPARISON: CT CHEST/ABD/PEL WO 04/24/2023 1:35 AM FINDINGS: Tubes, catheters and devices: Left subclavian transvenous pacer remains in place with leads in right cardiac chambers. A left internal jugular central venous catheter has been positioned with its tip seen in the region of the brachiocephalic venous confluence. Lungs: No parenchymal mass or consolidation detected. Pleural spaces: No pneumothorax or pleural effusion is seen. Heart/Mediastinum: Heart size is upper limits of normal and vessel margins are sharply defined. Bones/joints: No acute osseous lesions are detected. IMPRESSION: Borderline cardiac size with central venous catheter seen in position as above. Dictated and Authenticated by: Keith Rodarte MD. Ordering:ROSSY Lr MD
[2024-05-21] MEDS: CALCIUM GLUCONATE in NaCl 1 GM/50 ML BAG IVPB (02:49)
--- NOTE | 2024-05-21 04:13 | DI.VRAD_ITS ---
PROCEDURE INFORMATION: Exam: CTA Abdomen and Pelvis With Contrast Exam date and time: 05/21/2024 2:13 AM Age: 88 years old Clinical indication: Other: Massive active gi bleed TECHNIQUE: Imaging protocol: Computed tomographic angiography of the abdomen and pelvis with contrast. Exam focused on the arteries. 3D rendering (Not supervised by radiologist): MIP and/or 3D reconstructed images were created by the technologist. Contrast material: OMNI 350; Contrast volume: 100 ml; Contrast route: INTRAVENOUS (IV); COMPARISON: CT scan of the abdomen and pelvis dated April 24, 2023. FINDINGS: Limitations: The study is limited secondary to streak artifact from the patient's arms with degradation of the images. Tubes, catheters and devices: Cardiac pacer wires are demonstrated, also demonstrated on the previous studies. Heart: There is reflux of contrast into the inferior vena cava and hepatic veins, sometimes seen with cardiac dysfunction. Aorta: No aortic aneurysm. No aortic dissection. Celiac trunk and mesenteric arteries: No occlusion or significant stenosis. Renal arteries: No occlusion or significant stenosis. Right iliac arteries: No occlusion or significant stenosis. Left iliac arteries: No occlusion or significant stenosis. Other arteries: Scattered arteriosclerotic changes are noted, a finding also present on the previous study. Liver: There is a subtle area of diminished attenuation in the right lobe of the liver measuring approximately 1.4 x 2.4 x 1.0 cm in size on axial images 153 -170, series 5, a finding also present on the previous study. Gallbladder and biliary ducts: The patient is status post cholecystectomy, a finding also present on the previous study. Pancreas: Cystic changes are noted in the tail of the pancreas with the larger cyst measuring approximately 1 cm in size, similar to the previous study. Spleen: Unremarkable. No splenomegaly. Adrenal glands: Unremarkable. No mass. Kidneys and ureters: Bilateral renal cysts are identified, a finding also present on the previous study. The largest cyst is in the left kidney and it measures approximately 5.8 cm. Stomach and bowel: Right lower quadrant ostomy site is demonstrated, a finding also present on the previous study. Parastomal hernia is present which contains loops of large and small bowel, a finding also present on the previous study. There is no evidence for bowel obstruction. There is no evidence for strangulation. Colonic diverticula are demonstrated but there is no evidence for acute diverticulitis, a finding also present on the previous study. There is no definite focal intraluminal bowel hemorrhage site identified. Appendix: No evidence of appendicitis. Intraperitoneal space: Unremarkable. No free air. No significant fluid collection. Lymph nodes: Unremarkable. No enlarged lymph nodes. Urinary bladder: Unremarkable. No mass. Reproductive: The patient is status post hysterectomy, a finding also present on the previous study. Heterogeneous right adnexal mass is present measuring approximately 3.9 x 3.8 x 4.1 cm in size, a finding also present on the previous study. Bones/joints: The patient is status post laminectomies involving L3 and L4, also identified on the previous study. There are grade 1 anterior spondylolisthesis of L3 in relationship to L4 and L4 in relationship to L5, also present on the previous study. There is an old compression fracture deformity of T12, a finding also present on the previous study. Soft tissues: The patient is status post right mastectomy, a finding also present on the previous study. There is calcification of the hamstring tendons bilaterally, a finding also present on the previous study. There is diastasis of the rectus abdominis muscles with eventration. IMPRESSION: 1. No discrete intraluminal bowel hemorrhagic site identified. 2. Right mastectomy. 3. Right lower quadrant ostomy site with parastomal herniation. 4. Colonic diverticulosis. 5. Hysterectomy. 6. Right adnexal mass. 7. Suggestion of possible cardiac dysfunction. 8. Small area of diminished attenuation in the right lobe of the liver, possibly cyst. 9. Cholecystectomy. 10. Bilateral renal cysts. 11. Diastases recti. 12. Two cysts in the tail of the pancreas. 13. Status post lumbar laminectomies. 14. Spinal findings, as described above. Dictated and Authenticated by: Sherman Weber MD. Ordering:ROSSY Lr MD
--- NOTE | 2024-05-22 04:27 | W.ED.PROC ---
Date of service: 05/21/24 Time of Service: 01:30 Procedures Central Line Placement Left IJ: Time Out Performed: Yes Patient Placed on Monitor/Pulse Ox: Yes MD Prep: mask, gown and gloves Central Line Prep: Chlorhexidine scrub Local Anesthetic: Lidocaine 2% Amount of anesthesia used (mL): 5 Ultrasound Used for Placement: Yes Central Line Lumen Inserted: triple Post Procedure: good blood return, all ports aspirated, flushed, capped and sutured in place with 2-0 silk Post Procedure X-Ray: tip of catheter in good position Patient Tolerated Procedure: well Complications: other (oozing from puncture site) Medical Decision Making Quality:SDOH Health Related Social Needs: No Data to Display
--- NOTE | 2024-05-23 13:01 | NUR.NOTE ---
Accessed chart to determine EKG orders to EKG in [facility]. Nursing Note:
== END 2024-05-21 04:10 | disposition short-term general hospital (02) ==
PROVIDERS: Emergency Provider Student in an Organized Health Care Education/Training Program; PCP Legal Medicine
DX: K94.11 Enterostomy hemorrhage (principal); D50.0 Iron deficiency anemia secondary to blood loss (chronic); R57.9 Shock, unspecified; D68.9 Coagulation defect, unspecified
CPT/HCPCS: 36430; 80053; 83690; 86850; 86900; 86901; 86920; 93005; 96365; 99291; 71045; 74174; 83735; 84484; 85025; 85610; 85730; 93010; J0613; J3490; P9016; P9059

== ENCOUNTER 2024-05-28 15:20 | Emergency (ER) | payer MEDICARE, BC, SELFPAY ==
[2024-05-28 15:24] VITALS: BP 133/44; PULSE 81; RESP 14; O2SAT 93
[2024-05-28 16:01] LABS: Abs Immature Grans 0.07 10^3/uL (0.0-0.06); Absolute Basophil Count 0.03 10^3/uL (0.0-0.2); Absolute Eosinophil Count 0.08 10^3/uL (0.0-0.7); Absolute Lymphocyte Count 1.27 10^3/uL (1.2-3.4); Absolute Monocyte Count 0.63 10^3/uL (0.1-0.8); Absolute Neutrophil Count 8.28 10^3/uL (1.2-6.7); Basophils % 0.3 %; Eosinophils % 0.8 %; HCT 30.5 % (36.0-46.0); HGB 9.9 g/dL (11.2-15.7); Immature Grans % 0.7 %; Lymphocytes % 12.3 %; MCH 29.6 pg (27.0-33.0); MCHC 32.5 % (32.0-36.0); MCV 91 fL (80-95); MPV 9.3 fL (8.0-11.0); Monocytes % 6.1 %; Neutrophils % 79.8 %; Platelet Count 101 10^3/uL (130-400); RBC 3.34 10^6/uL (3.93-5.22); RDW 16.1 % (11.7-14.6); RDW-SD 52.2 fL; WBC 10.36 10^3/uL (4.4-10.8)
[2024-05-28 16:18] LABS: INR 1.1 (0.9-1.1); Prothrombin Time 10.9 sec (9.1-11.1)
[2024-05-28 16:19] LABS: ALT 22 U/L (14-59); AST 23 U/L (15-37); Albumin 2.8 g/dL (3.4-5.0); Alkaline Phosphatase 50 U/L (46-116); Anion Gap 10.2 mmol/L (3-11); BUN 21 mg/dL (7-18); Bilirubin, Total 2.94 mg/dL (0.2-1.0); CO2 22.8 mmol/L (21.0-32.0); Calcium 8.6 mg/dL (8.5-10.1); Chloride 109 mmol/L (98-107); Estimated GFR 23.73 (mL/min/1.73m2); Glucose 157 mg/dL (74-106); Potassium 4.1 mmol/L (3.5-5.1); Sodium 142 mmol/L (136-145); Total Protein 5.4 g/dL (6.4-8.2)
--- NOTE | 2024-05-28 16:48 | ED.GENADUL_ITS ---
Discharge Plan Disposition Patient Disposition: Home Discharge Details Clinical Impression: 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 Primary Care Provider: Dede Miller ED Provider: Clair Lynn Home Meds and New Rx's Prescriptions: No Action cholecalciferol (vitamin D3) 125 mcg (5,000 unit) capsule 125 mcg PO DAILY gabapentin 600 MG tablet 600 mg PO BID magnesium 250 mg tablet 250 mg PO DAILY Qty: 20 0RF metoprolol succinate 50 mg tablet extended release 24 hr 50 mg PO DAILY prednisone 10 mg tablet 10 mg PO BID Patient Comments: TAKE 3TABS BY MOUTH TWO TIMES A DAY FOR 2DAYS, 2TABS TWO TIMES A DAY FOR 2DAYS, 3TABS ONCE DAILY FOR 2DAYS, 2TABS FOR 2DAYS, 1TAB FOR 2DAYS Discharge Instructions Additional Instructions: take great care when changing ostomy watch output closely please follow up with surgery clinic this week for re-evaluation HPI General Date/Time Provider Initiated Documentation: 05/28/24 15:38 . HPI Narrative: 88-year-old female with past medical history including colon cancer, status post ileostomy over 10 years ago, cirrhosis, chronic renal insufficiency presents for evaluation of bleeding from stoma. This has been an ongoing issue this week. She presented to the emergency department 1 week ago at that time she was having excessive hemorrhaging requiring 6 units of blood transfusion, she was transferred to [facility] and required a suture of a laceration on her ostomy. Yesterday she reported that she had some bleeding around her ostomy, she went to [facility] and they did some kind of cautery to the area. She states that she is still having bleeding. She reports that today she noted dark bleeding into her ostomy bag. Related Data Home Medications Medication Instructions Recorded Confirmed gabapentin 600 mg tablet 600 mg PO BID 09/16/16 05/21/24 magnesium 250 mg tablet 250 mg PO DAILY #20 tabs 06/04/23 05/21/24 cholecalciferol (vitamin D3) 125 125 mcg PO DAILY 06/11/23 05/21/24 mcg (5,000 unit) capsule metoprolol succinate 50 mg 50 mg PO DAILY 05/21/24 05/21/24 tablet,extended release 24 hr prednisone 10 mg tablet 10 mg PO BID 05/21/24 05/21/24 Previous Rx's Medication Instructions Recorded magnesium 250 mg tablet 250 mg PO DAILY #20 tabs 06/04/23 Allergies Allergy/AdvReac Type Severity Reaction Status Date / Time No Known Allergies Allergy Unverified 05/28/24 15:28 General Stated Complaint: GI Bleed LETI: 3 Exam Narrative Exam Narrative: Review of Systems: All systems reviewed & are unremarkable except as noted in HPI and below Well-developed, no acute distress NCAT PERRL, normal conjunctiva RRR Unlabored respiratory effort Abdomen is soft, ostomy stoma in the right lower quadrant, there is no active bleeding appreciated, there is dark-colored blood within the ostomy bag Bag removed and there is some irritation around 6:00, but no active bleeding Extremities w/o deformity, no cyanosis, no edema No rashes or lesions. no focal neurologic deficits Appropriate mood and affect Course Vital Signs Vital signs: Vital Signs Pulse 81 05/28/24 15:24 Respiratory Rate 14 05/28/24 15:24 Blood Pressure 133/44 L 05/28/24 15:24 Pulse Oximetry 93 05/28/24 15:24 Pulse 81 05/28/24 15:24 Respiratory Rate 14 05/28/24 15:24 Blood Pressure 133/44 L 05/28/24 15:24 Blood Pressure Position Sitting 05/28/24 15:24 Pulse Oximetry 93 05/28/24 15:24 Oxygen Delivery Method Room Air 05/28/24 15:24 Oxygen Flow Rate 0 05/28/24 15:24 Pain Level 4 05/28/24 15:24 Lab/Test Results Lab/Test Results: Laboratory Tests Range/Units 05/28/24 15:45 WBC (4.4-10.8) 10^3/uL 10.36 RBC (3.93-5.22) 10^6/uL 3.34 L Hgb (11.2-15.7) g/dL 9.9 L Hct (36.0-46.0) % 30.5 L MCV (80-95) fL 91 MCH (27.0-33.0) pg 29.6 MCHC (32.0-36.0) % 32.5 RDW (11.7-14.6) % 16.1 H Plt Count (130-400) 10^3/uL 101 L MPV (8.0-11.0) fL 9.3 Immature Gran % % 0.7 Neutrophils % % 79.8 Lymphocytes % % 12.3 Monocytes % % 6.1 Eosinophils % % 0.8 Basophils % % 0.3 Nucleated RBC % (0.0-0.3) % 0.0 Absolute Neutrophils (1.2-6.7) 10^3/uL 8.28 H Absolute Lymphocytes (1.2-3.4) 10^3/uL 1.27 Absolute Monocytes (0.1-0.8) 10^3/uL 0.63 Absolute Eosinophils (0.0-0.7) 10^3/uL 0.08 Absolute Basophils (0.0-0.2) 10^3/uL 0.03 PT (9.1-11.1) sec 10.9 INR (0.9-1.1) 1.1 APTT (23.6-32.8) sec 21.0 L Sodium (136-145) mmol/L 142 Potassium (3.5-5.1) mmol/L 4.1 Chloride (98-107) mmol/L 109 H Carbon Dioxide (21.0-32.0) mmol/L 22.8 Anion Gap (3-11) mmol/L 10.2 BUN (7-18) mg/dL 21 H Creatinine (0.55-1.02) mg/dL 2.0 H Est GFR (CKD-EPI 2020) (mL/min/1.73m2) 23.73 Glucose (74-106) mg/dL 157 H Calcium (8.5-10.1) mg/dL 8.6 Total Bilirubin (0.2-1.0) mg/dL 2.94 H AST (15-37) U/L 23 ALT (14-59) U/L 22 Alkaline Phosphatase (46-116) U/L 50 Total Protein (6.4-8.2) g/dL 5.4 L Albumin (3.4-5.0) g/dL 2.8 L ABO/Rh A Positive Antibody Screen POSITIVE Medical Decision Making Emergent evaluation of stoma complication. Patient has been evaluated twice previously this week for bleeding from her stoma. 1 week ago it appears that she was having critically ill bleeding that required multiple rounds of blood transfusions, transfer and surgical evaluation. At that time she had endoscopy and ileostomy no signs of internal bleeding were noted. There was laceration at the stoma. I reviewed the medical record and noted this has been an ongoing issue, thought by surgery to be more of irritation from the bag. Will check blood work and monitor for rebleeding as there is none present at this time. 1650 New ostomy bag in place, no blood noted 1745 Patient observed in the emergency department, no additional bleeding noted from the stoma or into the ostomy bag. Blood work reviewed. Her hemoglobin is 9.9. It was 11.8 at discharge from [facility] after 6 units of blood. So slight decrease, but likely more of a return to the patient's baseline. Thrombocytopenia has improved as well. Renal function is at baseline. Since the patient does not have significant blood loss anemia there is no indication for blood transfusion, she is not actively bleeding, at this time is appropriate for discharge. Recommend close follow-up with general surgery clinic this week. Return precautions advised. Medical Records Medical records reviewed: Yes I reviewed the patient's medical records. Lab Data Lab results reviewed: Yes I reviewed the patient's lab results. Quality:SDOH Health Related Social Needs: No Data to Display PFSH All Active Problems Shock circulatory (Acute) Coagulopathy (Acute) PSVT (paroxysmal supraventricular tachycardia) (Acute) At high risk for skin breakdown (Acute) Parastomal ulcer of enterostomy (Acute) 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 (Acute) Abn react-external stoma (Acute) Pacemaker (Chronic) Elevated serum creatinine (Acute) Chronic pain in left foot (Acute) Hypercholesterolemia (Acute) Anemia due to GI blood loss (Acute) Medical History Hypomagnesemia Elevated troponin H/O malignant neoplasm of colon History of breast cancer CKD (chronic kidney disease), stage III CONTRERAS (nonalcoholic steatohepatitis) Cirrhosis Ischemic neuropathy of foot PAD (peripheral artery disease) Colon cancer Hypertension Paroxysmal atrial fibrillation Breast cancer Remains RADHA Surgical History Hemicolectomy (06/30/13) Right, 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 Park @ [facility] [place]-no recurrence Social History Smoking/Tobacco Use Status: Never Smoking risk assessment performed?: Yes Alcohol Intake: never Drug use: Never Housing: house Do you feel safe at home: Yes Do you feel safe in your relationship?: Yes
[2024-05-28 18:15] VITALS: BP 163/64; PULSE 60; RESP 16; O2SAT 98
== END 2024-05-28 18:18 | disposition home or self-care (01) ==
PROVIDERS: Emergency Provider Emergency Medicine; PCP Legal Medicine
DX: K94.21 Gastrostomy hemorrhage (principal)
CPT/HCPCS: 80053; 86850; 86900; 86901; 99283; 85025; 85610; 85730; 86870; 86902

== ENCOUNTER 2024-05-29 16:43 | Inpatient (IN) | payer MEDICARE, BC, SELFPAY ==
[2024-05-29] VITALS (139 sets, daily range): BP systolic 62–192; BP diastolic 21–130; PULSE 58–144; RESP 12–25; TEMP 36.5–36.9; O2SAT 94–100; BMI 33.3
--- NOTE | 2024-05-29 17:00 | RT.EKG_ITS ---
APPROVED REPORT Exam: Resting ECG Reason for Exam: Irregular Heart Beat Patient Location: E HR:138 bpm ECG Measurements Heart Rate 138 AXIS WY 92 P 0 QRSd 119 QRS -67 QT 321 T 89 QTc 486 Conclusion Sinus tachycardia...rate> 99 Right bundle branch block...QRSd>120, terminal axis(90,270) LVH with IVCD and secondary repol abnrm...multi-criteria, wQRSd, abnr ST-T ST elevation secondary to LVH...Multiple VCG criteria consider supraventricular tachycardia with abberancy, likely afib/aflutter rvr given hx
[2024-05-29] MEDS: Tranexamic Acid 1,000 MG/10 ML VIAL 1000 MG IVP (17:25)
[2024-05-29 17:45] LABS: Abs Immature Grans 0.09 10^3/uL (0.0-0.06); Absolute Eosinophil Count 0.14 10^3/uL (0.0-0.7); Absolute Neutrophil Count 10.83 10^3/uL (1.2-6.7); Basophils % 0.3 %; HCT 27.1 % (36.0-46.0); HGB 8.8 g/dL (11.2-15.7); Immature Grans % 0.6 %; Lymphocytes % 16.7 %; MCH 29.7 pg (27.0-33.0); MCHC 32.5 % (32.0-36.0); MCV 92 fL (80-95); MPV 9.7 fL (8.0-11.0); Monocytes % 6.1 %; Neutrophils % 75.3 %; Platelet Count 135 10^3/uL (130-400); RBC 2.96 10^6/uL (3.93-5.22); RDW 16.7 % (11.7-14.6); RDW-SD 54.5 fL; WBC 14.38 10^3/uL (4.4-10.8)
[2024-05-29 17:48] LABS: Absolute Basophil Count 0.04 10^3/uL (0.0-0.2); Absolute Monocyte Count 0.88 10^3/uL (0.1-0.8)
[2024-05-29] MEDS: Normal Saline 500 ML IV (17:54)
[2024-05-29 18:10] LABS: INR 1.1 (0.9-1.1); PTT Activated 20.5 sec (23.6-32.8); Prothrombin Time 10.7 sec (9.1-11.1)
--- NOTE | 2024-05-29 18:11 | DI.RAD_ITS ---
Exam(s) XR PORTABLE CHEST AP POST LINE EXAM: XR PORTABLE CHEST AP POST LINE CLINICAL HISTORY: post line, right IJ. TECHNIQUE: 2D digital imaging was performed. COMPARISON: CR,XR XR PORTABLE CHEST AP from 05/21/2024 FINDINGS: Single AP portable view. Again noted is a bipolar left subclavian pacemaker with lead tips in RA and right ventricle Heart size is upper normal. The mediastinum is not widened. Lungs are clear. No infiltrates nor obvious pleural effusions. No evidence of pulmonary edema. There is a right internal jugular vein central line. Its distal tip is in the SVC which is in good p osition. IMPRESSION: No acute pulmonary findings on this single AP portable view of the chest. Right IJ central line in good position. Bipolar pacemaker again noted. DATA REPOSITORY: RADIATION DOSE DELIVERED:
--- NOTE | 2024-05-29 18:14 | ED.GENADUL_ITS ---
Discharge Plan Disposition Patient Disposition: Admit to [facility] Condition: Serious Discharge Details Chief Complaint: Abd Prob Clinical Impression: Hemorrhagic shock, 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 Primary Care Provider: Dede Miller ED Provider: Solitario Alberto Home Meds and New Rx's Prescriptions: No Action cholecalciferol (vitamin D3) 125 mcg (5,000 unit) capsule 125 mcg PO DAILY gabapentin 600 MG tablet 600 mg PO BID magnesium 250 mg tablet 250 mg PO DAILY Qty: 20 0RF metoprolol succinate 50 mg tablet extended release 24 hr 50 mg PO DAILY prednisone 10 mg tablet 10 mg PO BID Patient Comments: TAKE 3TABS BY MOUTH TWO TIMES A DAY FOR 2DAYS, 2TABS TWO TIMES A DAY FOR 2DAYS, 3TABS ONCE DAILY FOR 2DAYS, 2TABS FOR 2DAYS, 1TAB FOR 2DAYS HPI General Date/Time Provider Initiated Documentation: 05/29/24 17:02 . HPI Narrative: 88-year-old female history of adenocarcinoma of the colon status postresection 2 013 with ostomy, presents with recurrent bleeding at ostomy site has put out several 100 cc of blood into her bag today, feeling lightheaded. Was seen at [facility] recently transferred for bleeding from stoma taken to the OR and had surface vessel oversewn. Patient was seen at [facility] [place] within the last couple of days and had local mucosal surface cautery performed without improvement. Related Data Home Medications Medication Instructions Recorded Confirmed gabapentin 600 mg tablet 600 mg PO BID 09/16/16 05/21/24 magnesium 250 mg tablet 250 mg PO DAILY #20 tabs 06/04/23 05/21/24 cholecalciferol (vitamin D3) 125 125 mcg PO DAILY 06/11/23 05/21/24 mcg (5,000 unit) capsule metoprolol succinate 50 mg 50 mg PO DAILY 05/21/24 05/21/24 tablet,extended release 24 hr prednisone 10 mg tablet 10 mg PO BID 05/21/24 05/21/24 Previous Rx's Medication Instructions Recorded magnesium 250 mg tablet 250 mg PO DAILY #20 tabs 06/04/23 Allergies Allergy/AdvReac Type Severity Reaction Status Date / Time No Known Allergies Allergy Unverified 05/29/24 16:48 General Stated Complaint: Abd Prob LETI: 3 Review of Systems Narrative: Review of Systems Constitutional: Lightheaded Eyes: negative ENT: negative Cardiovascular: negative Respiratory: negative Gastrointestinal: Bleeding from stoma : negative Musculoskeletal: negative Skin: negative Neurologic: negative Psych: negative Exam Narrative Exam Narrative: Physical Examination General: alert, awake, cooperative, resting comfortably, no acute distress HEENT: normocephalic, atraumatic; PERRL, EOM intact, pale conjunctiva Neck: supple, trachea midline; full ROM Chest: normal to inspection Respiratory: normal respiratory effort, speaking in full sentences, clear to auscultation, no wheezing, rales or rhonchi Cardiac: Tachycardia to the 140s/150s, S1S2 intact, no murmurs rubs or gallops GI: abdomen soft, non-tender, non-distended; no palpable mass or hepatosplenomegaly; 300 cc of dark blood in stoma Skin: Pale Neuro: AAOx3, normal speech, moving all extremities Psych: Appropriate mood and affect Course Vital Signs Vital signs: Vital Signs Temperature 36.5 C 05/29/24 16:45 Pulse 73 05/29/24 16:45 Respiratory Rate 14 05/29/24 16:45 Blood Pressure 130/110 H 05/29/24 16:45 Pulse Oximetry 98 05/29/24 16:45 Temperature 36.6 C 05/29/24 17:53 Pulse 144 H 05/29/24 17:53 Pulse 65 05/29/24 17:51 Respiratory Rate 20 05/29/24 17:53 Respiratory Effort Normal, Non-Labored 05/29/24 17:53 Blood Pressure 91/51 L 05/29/24 17:53 Blood Pressure Mean 63 05/29/24 17:51 Pulse Oximetry 94 05/29/24 17:53 Oxygen Delivery Method Room Air 05/29/24 17:53 Oxygen Flow Rate 0 05/29/24 17:53 Pain Level 3 05/29/24 16:45 Lab/Test Results Lab/Test Results: Laboratory Tests Range/Units 05/29/24 05/29/24 17:10 17:11 WBC (4.4-10.8) 10^3/uL 14.38 H Cancelled RBC (3.93-5.22) 10^6/uL 2.96 L Cancelled Hgb (11.2-15.7) g/dL 8.8 L Cancelled Hct (36.0-46.0) % 27.1 L Cancelled MCV (80-95) fL 92 Cancelled MCH (27.0-33.0) pg 29.7 Cancelled MCHC (32.0-36.0) % 32.5 Cancelled RDW (11.7-14.6) % 16.7 H Cancelled Plt Count (130-400) 10^3/uL 135 Cancelled MPV (8.0-11.0) fL 9.7 Cancelled Immature Gran % % 0.6 Cancelled Neutrophils % % 75.3 Cancelled Band Neutrophils % Cancelled Lymphocytes % % 16.7 Cancelled Atypical Lymphs % Cancelled Monocytes % % 6.1 Cancelled Eosinophils % % 1.0 Cancelled Basophils % % 0.3 Cancelled Metamyelocytes % Cancelled Myelocytes % Cancelled Promyelocytes % Cancelled Other Cells % Cancelled Nucleated RBC % (0.0-0.3) % 0.0 Cancelled Absolute Neutrophils (1.2-6.7) 10^3/uL 10.83 H Cancelled Absolute Lymphocytes (1.2-3.4) 10^3/uL 2.40 Cancelled Absolute Monocytes (0.1-0.8) 10^3/uL 0.88 H Cancelled Absolute Eosinophils (0.0-0.7) 10^3/uL 0.14 Cancelled Absolute Basophils (0.0-0.2) 10^3/uL 0.04 Cancelled RBC Morphology Cancelled Polychromasia Cancelled Hypochromasia Cancelled Poikilocytosis Cancelled Basophilic Stippling Cancelled Anisocytosis Cancelled Microcytosis Cancelled Macrocytosis Cancelled Spherocytes Cancelled Tear Drop Cells Cancelled Ovalocytes Cancelled Stomatocytes Cancelled Dial-[place] Bodies Cancelled Henriette Cells/Echinocytes Cancelled Acanthocytes (Spur) Cancelled Schistocytes Cancelled PT (9.1-11.1) sec 10.7 Cancelled INR (0.9-1.1) 1.1 Cancelled APTT (23.6-32.8) sec 20.5 L Cancelled Sodium Cancelled Potassium Cancelled Chloride Cancelled Carbon Dioxide Cancelled Anion Gap Cancelled BUN Cancelled Creatinine Cancelled Est GFR (CKD-EPI 2020) Cancelled Glucose Cancelled Calcium Cancelled Total Bilirubin Cancelled AST Cancelled ALT Cancelled Alkaline Phosphatase Cancelled Total Protein Cancelled Albumin Cancelled ABO/Rh Cancelled Antibody Screen Cancelled Crossmatch See Detail Procedures Central Line Placement Right IJ: Time Out Performed: Yes Patient Placed on Monitor/Pulse Ox: Yes MD Prep: mask, gown and gloves Central Line Prep: Chlorhexidine scrub and sterile drapes applied Local Anesthetic: Lidocaine 1% Amount of anesthesia used (mL): 3 Ultrasound Used for Placement: Yes Central Line Lumen Inserted: triple Post Procedure: good blood return and all ports aspirated, flushed, capped Post Procedure X-Ray: tip of catheter in good position Patient Tolerated Procedure: well Medical Decision Making 88-year-old female history of adenocarcinoma of the colon, status post resection and ostomy in 2013 presents with recurrent bleeding to ostomy site, recent admission to [facility] taken to the OR by general surgery had surface vessel oversewn at ostomy site, had recurrent bleeding of the last couple of days was actually seen at [facility] and had localized cautery performed at ostomy without improvement, returns today with lightheadedness tachycardia hypotension blood pressures as low as the 70s systolic heart rate in the 140s/150s, IV access was obtained immediately, 2 units PRBCs and 2 units FFP have been ordered, we do not have platelets readily available here at this facility, patient received 1 g of TXA, airway intact breathing without distress, pulses intact however tachycardic and hypotensive; concern for hemorrhagic shock in the setting of bleeding from stoma, after emptying stoma bag patient had persistent slow dark blood oozing into bag, given expected clinical course and inability to access right upper extremity due to prior lymph node resection decision was made to place central line triple-lumen IJ catheter has been placed, will continue with resuscitation with blood products, discussed case with Dr. Webb of general surgery who is at bedside currently. Of note patient's heart rate spontaneously converted to a paced rhythm in the 60s and blood pressure improved to systolics in the 100s, likely initial rhythm was A-fib/a flutter RVR 18: 23 portable x-rays been ordered to confirm right IJ placement. Anesthesia is been done to assess patient in case she needs to go to the OR. Dr. Webb will admit to ICU. Quality:[facility] Health Related Social Needs: No Data to Display Critical Care Time Critical Care Time Critical Care Time: Yes Total Critical Care Time: 30 Attestation: Critical care time spent at bedside assessing patient interpreting labs interpreting imaging according specialty care and placing central line inpatient in hemorrhagic shock from a bleeding ostomy, requiring ICU level admission PFSH All Active Problems (Updated 05/29/24 @ 18:26 by Solitario Alberto MD) 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 (Acute) Hemorrhagic shock (Acute) Shock circulatory (Acute) Coagulopathy (Acute) PSVT (paroxysmal supraventricular tachycardia) (Acute) At high risk for skin breakdown (Acute) Parastomal ulcer of enterostomy (Acute) 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 (Acute) Abn react-external stoma (Acute) Pacemaker (Chronic) Elevated serum creatinine (Acute) Chronic pain in left foot (Acute) Hypercholesterolemia (Acute) Anemia due to GI blood loss (Acute) Medical History Hypomagnesemia Elevated troponin H/O malignant neoplasm of colon History of breast cancer CKD (chronic kidney disease), stage III CONTRERAS (nonalcoholic steatohepatitis) Cirrhosis Ischemic neuropathy of foot PAD (peripheral artery disease) Colon cancer Hypertension Paroxysmal atrial fibrillation Breast cancer Remains RADHA Surgical History Hemicolectomy (06/30/13) Right, 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 Park @ [facility] [place], 2015-no recurrence Social History Smoking/Tobacco Use Status: Never Smoking risk assessment performed?: Yes Alcohol Intake: never Drug use: Never Housing: house Do you feel safe at home: Yes Do you feel safe in your relationship?: Yes
[2024-05-29 18:23] LABS: ALT 21 U/L (14-59); AST 29 U/L (15-37); Albumin 2.7 g/dL (3.4-5.0); Alkaline Phosphatase 49 U/L (46-116); Anion Gap 11.6 mmol/L (3-11); BUN 24 mg/dL (7-18); Bilirubin, Total 2.66 mg/dL (0.2-1.0); CO2 20.4 mmol/L (21.0-32.0); Calcium 8.8 mg/dL (8.5-10.1); Chloride 110 mmol/L (98-107); Estimated GFR 23.73 (mL/min/1.73m2); Glucose 146 mg/dL (74-106); Potassium 4.3 mmol/L (3.5-5.1); Sodium 142 mmol/L (136-145); Total Protein 5.4 g/dL (6.4-8.2)
--- NOTE | 2024-05-29 19:00 | ANES.PREOP_ITS ---
General Info Date of Service Date Performed: 05/29/24 Height: 4 ft 11 in Weight: 74.843 kg Body Mass Index (BMI): 33.3 Surgical Procedure: Operation Date: 05/29/24 18:30 Proposed Procedure Side Surgeon p Exploratory Laparotomy Efren Webb MD Meds Allergies and Home Medications Allergies Allergy/AdvReac Type Severity Reaction Status Date / Time No Known Allergies Allergy Unverified 05/29/24 16:48 Home Medication Medication Instructions Recorded gabapentin 600 mg tablet 600 mg PO BID 09/16/16 magnesium 250 mg tablet 250 mg PO DAILY #20 tabs 06/04/23 cholecalciferol (vitamin D3) 125 125 mcg PO DAILY 06/11/23 mcg (5,000 unit) capsule metoprolol succinate 50 mg 50 mg PO DAILY 05/21/24 tablet,extended release 24 hr prednisone 10 mg tablet 10 mg PO BID 05/21/24 PFSH Active Problems Active Problems: Problem Status Onset Code 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 K94.11 Hemorrhagic shock R57.8 Shock circulatory R57.9 Coagulopathy D68.9 PSVT (paroxysmal supraventricular tachycardia) I47.1 At high risk for skin breakdown Z91.89 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 K94.11 Abn react-external stoma Y83.3 Pacemaker Z95.0 Elevated serum creatinine R79.89 Chronic pain in left foot Hypercholesterolemia Anemia due to GI blood loss D50.0 Medical History Medical History Hypomagnesemia Elevated troponin H/O malignant neoplasm of colon History of breast cancer CKD (chronic kidney disease), stage III CONTRERAS (nonalcoholic steatohepatitis) Cirrhosis Ischemic neuropathy of foot PAD (peripheral artery disease) Colon cancer Hypertension Paroxysmal atrial fibrillation Breast cancer Remains RADHA Surgical History Surgical History Hemicolectomy (06/30/13) Right, 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 Park @ [facility] [place], [place]-no recurrence Tobacco Smoking/Tobacco Use Status: Never Alcohol Alcohol Intake: never Substance Use Substance use: Never Vital Signs and Lab Results Vital Signs Most Recent Vital Signs in EMR: Most Recent Vital Signs Temp Pulse Resp BP Pulse Ox 36.6 C 130 H 19 102/66 94 05/29/24 18:29 05/29/24 18:41 05/29/24 18:41 05/29/24 18:41 05/29/24 17:53 Lab Results 05/29/24 17:10 05/29/24 17:10 Blood Type / Crossmatch: 2 Antibody Screen POSITIVE 05/28/24 Crossmatch See Detail 05/29/24 Complete Blood Count: 2 White Blood Count 14.38 10^3/uL (4.4-10.8) H 05/29/24 17:10 Red Blood Count 2.96 10^6/uL (3.93-5.22) L 05/29/24 17:10 Hemoglobin 8.8 g/dL (11.2-15.7) L 05/29/24 17:10 Hematocrit 27.1 % (36.0-46.0) L 05/29/24 17:10 Platelet Count 135 10^3/uL (130-400) 05/29/24 17:10 Complete Metabolic Panel: 2 Sodium 142 mmol/L (136-145) 05/29/24 17:10 Potassium 4.3 mmol/L (3.5-5.1) 05/29/24 17:10 Chloride 110 mmol/L (98-107) H 05/29/24 17:10 Carbon Dioxide 20.4 mmol/L (21.0-32.0) L 05/29/24 17:10 BUN 24 mg/dL (7-18) H 05/29/24 17:10 Creatinine 2.0 mg/dL (0.55-1.02) H 05/29/24 17:10 Est GFR (CKD-EPI 2020) 23.73 (mL/min/1.73m2) 05/29/24 17:10 Magnesium 1.7 mg/dL (1.8-2.4) L 05/21/24 01:05 Calcium 8.8 mg/dL (8.5-10.1) 05/29/24 17:10 Albumin 2.7 g/dL (3.4-5.0) L 05/29/24 17:10 Glucose 146 mg/dL (74-106) H 05/29/24 17:10 Liver Function Panel: 2 Alanine Aminotransferase (ALT/SGPT) 21 U/L (14-59) 05/29/24 17: 10 Aspartate Amino Transf (AST/SGOT) 29 U/L (15-37) 05/29/24 17:10 Coagulation Panel: 2 INR International Normalized Ratio 1.1 (0.9-1.1) 05/29/24 17:1 0 Prothrombin Time 10.7 sec (9.1-11.1) 05/29/24 17:10 Activated Partial Thromboplast Time 20.5 sec (23.6-32.8) L 05/29/24 17:10 Cardiac Panel: 2 Troponin I < 50 ng/L (< or =60) 05/21/24 Arterial Blood Gas: 2 No Data to Display Venous Blood Gas: 2 No Data to Display Pancreas Panel: 2 Lipase 184 U/L (16-77) H 05/21/24 01:05 Thyroid Panel: 2 No Data to Display Infectious Disease: 2 No Data to Display Blood Cultures: 2 No Data to Display Toxicology Panel: 2 No Data to Display Imaging and Studies Imaging and Studies Study information below may be from another EMR and interpreted by another provider. Please see original notes in EMR for more complete details. EKG Summary: 11/04/2021: RBBB with left axis bifacicular block. ? LVH. Anesthesia Assessment and Plan Anesthesia History Personal History: No History of Anesthesia Complications Family History: No Family History of Anesthesia Complications Exercise Tolerance Exercise Tolerance: Metabolic Equivalents>4 Pertinent Negatives Pertinent Negatives: No Symptoms of GERD Cardiac & Pulmonary Exam Cardiac Exam: Normal S1/S2 Heart Sounds Pulmonary Exam: Clear Bilateral Breath Sounds Implantable Cardiac Device Does patient have a Pacemaker or an ICD?: Yes Device Industrial Methods Consultant:: van alonso DR [id number] DDDR Reason for Placement:: HR Date of Last Device Interrogation:: Unknown Airway Exam Known Difficult Airway: No Mallampati Class: 3 Mouth Opening: Narrow (< 3cm) Thyromental Distance: Less than 3 cm Neck Range of Motion: Full ROM Neck Circumference: Normal Teeth Condition: Generalized Poor Dentition Airway Comments: #21, 11 missing ASA Classification ASA Score: ASA 4 Emergency Case?: Yes NPO Status NPO Status: NPO Clears >2 hours, Solids >8 hours Anesthesia Plan Resuscitation Status: DNR Modified During Perioperative Period (Pt does not want chest compressions if heart stops) Resuscitation Modifications: CPR Refused Anesthesia Technique: General Anesthesia Airway Planned: Endotracheal Tube Monitors Used: Standard Monitors, Arterial Line, Central Line and SedLine Preoperative Comments:: Sig PMHx: HTN, CKD, pAFib, Pacer ([employer] advisa [id number] DDDR), s/p hemicolectomy with colostomy. Previous Anes: Mac 3 grade 1 in 2012 for ex lap. LMA 4 2005 for mastectomy.
--- NOTE | 2024-05-29 19:19 | SCONE_ITS ---
Date of service: 05/29/24 Time of Service: 18:00 Assessment and Plan Assessment and plan (1) 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: Status: Acute Assessment and plan: 88-year-old woman is critically ill, in hypovolemic shock, from severe blood loss. Thankfully, no signs of organ failure at this time. She has CKD that appears to be stable based off lab work. Her atrial fibrillation is playing a component in her hemodynamic instability and that is probably being triggered by the hypovolemia. Her pacemaker is not going to help this scenario. The mainstay of treatment is volume resuscitation with blood products and permissive hypotension during this effort. There is no further bleeding happening right now though we do have the OR team on standby. They have opened a room in anticipation for possible ex lap. ASSESSMENT/PLAN - SYSTEM BASED LAB SUPPORT SERVICE TECH/Psych/NEURO: Stable. The patient has no deficits and is cognitively aware PLAN: Monitor only. Analgesia not needed. Sedation not needed. CARDIOVASCULAR: Unstable blood pressure, unstable rate -secondary to severe blood loss PLAN: Permissive hypotension and permissive tachycardia while providing volume resuscitation with blood products only. PULMONARY: Stable -no requirements or deficits PLAN: Monitor, especially since we are transfusing blood GASTROINTESTINAL: Ostomy having liquid output and no further hemorrhage. PLAN: Monitor for recurrent bleeding to start back up in order for us to have a target to surgically manage. Considering upper and lower endoscopy done at [facility] only a week ago, with reportedly no findings, there is no role for us to repeat the studies. RENAL/GENITOURINARY/E-LYTES: CKD is stable and electrolytes are grossly stable PLAN: Monitor NUTRITION: No acute issues, stable PLAN: Hopefully we can start feeding her as early as tomorrow ENDOCRINE: No obvious issues PLAN: No interventions needed HEME/ID: Coagulation parameters and platelet count within normal limits. Patient is not on blood thinners or antiplatelet therapy. PLAN: Transfuse PRBC until hemoglobin greater than 9 (patient has significant cardiac history). Check hemoglobin again in the morning or again if she starts to bleed again. MUSCULOSKELETAL/SKIN/SOFT-TISSUE: No issues PLAN: Minimize bedrest. Out of bed and ambulatory in the morning DRAINS/LINES: Triple-lumen catheter - good placement. Arterial line not needed. PLAN: Acuña catheter to monitor urine output. FAMILY/CODE STATUS: DNR/DNI. I discussed the patient's critical but treatable condition with the at the bedside. I was also able to discuss this with the patient herself as she is completely cognitively intact at the time of this consultation/admission. DISPOSITION: ICU I personally performed 70 minutes of aggregate critical care time exclusive of procedures. This includes time spent during direct, bedside patient evaluation, reassessment, interpreting diagnostic testing and imaging, directing life and/or organ supporting interventions, discussing/updating condition and care goals with family and/or medical power of securities attorney and documentation in the Intensive Care Unit or Trauma [place]. History of Present Illness Narrative: Patient is an 88-year-old woman who has had an end colostomy(? End ileostomy) in the right lower quadrant. She has had multiple episodes of hemorrhage from the ostomy. The most recent was only a week ago and she was transferred to [facility] and reportedly received 6 units of blood. She was taken to the OR there and had an upper endoscopy and a colonoscopy as well as oversewing of bleeding on her stoma. This is all per report and I have not seen any of these operative notes myself. Certainly this has been a problem that has been ongoing for many years however. It seems that previously the issues have been erosions at her stoma site from her appliances. Today she arrived to the emergency department with a heart rate in the 140s?150s and blood pressures in the 60s and 70s systolic. At the time I am at the bedside, her heart rate is in the 120s?130s and appears to be somewhat atrial fibrillation. Her blood pressure has been between 90 and 120 systolic. She has received 1 unit of blood and 1 unit of FFP. There is no more bleeding in her ostomy bag at this time. The emergency room physician had placed a right IJ central line already. PFSH All Active Problems (Updated 05/29/24 @ 18:26 by Solitario Alberto MD) 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 (Acute) Hemorrhagic shock (Acute) Shock circulatory (Acute) Coagulopathy (Acute) PSVT (paroxysmal supraventricular tachycardia) (Acute) At high risk for skin breakdown (Acute) Parastomal ulcer of enterostomy (Acute) 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 (Acute) Abn react-external stoma (Acute) Pacemaker (Chronic) Elevated serum creatinine (Acute) Chronic pain in left foot (Acute) Hypercholesterolemia (Acute) Anemia due to GI blood loss (Acute) Medical History Hypomagnesemia Elevated troponin H/O malignant neoplasm of colon History of breast cancer CKD (chronic kidney disease), stage III CONTRERAS (nonalcoholic steatohepatitis) Cirrhosis Ischemic neuropathy of foot PAD (peripheral artery disease) Colon cancer Hypertension Paroxysmal atrial fibrillation Breast cancer Remains RADHA Surgical History Hemicolectomy (06/30/13) Right, 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 Park @ [facility] [place], 2015-no recurrence Social History Smoking/Tobacco Use Status: Never Smoking risk assessment performed?: Yes Alcohol Intake: never Drug use: Never Housing: house Do you feel safe at home: Yes Do you feel safe in your relationship?: Yes Exam Narrative Exam Narrative: General: Nontoxic, comfortable and interactive. Denies lethargy or lightheadedness at the bedside. Neuro: Alert and oriented x 3 Psych: Good mood and affect, good insight and understanding into her condition Abdomen: Soft, nondistended and nontender. Her colostomy is pink, patent and there is liquid brown stool coming from it. There is no blood. Results Last Vital Signs Temp 97.9 F 05/29/24 18:29 Pulse 60 05/29/24 19:01 Resp 19 05/29/24 19:01 BP 134/60 05/29/24 19:01 Pulse Ox 94 05/29/24 17:53 Labs 05/29/24 17:10 05/29/24 17:10 Labs: Laboratory Results - last 24 hr 05/29/24 05/29/24 17:10 17:11 WBC 14.38 H Cancelled RBC 2.96 L Cancelled Hgb 8.8 L Cancelled Hct 27.1 L Cancelled MCV 92 Cancelled MCH 29.7 Cancelled MCHC 32.5 Cancelled RDW 16.7 H Cancelled Plt Count 135 Cancelled MPV 9.7 Cancelled Immature Gran % 0.6 Cancelled Neutrophils % 75.3 Cancelled Band Neutrophils % Cancelled Lymphocytes % 16.7 Cancelled Atypical Lymphs % Cancelled Monocytes % 6.1 Cancelled Eosinophils % 1.0 Cancelled Basophils % 0.3 Cancelled Metamyelocytes % Cancelled Myelocytes % Cancelled Promyelocytes % Cancelled Other Cells % Cancelled Nucleated RBC % 0.0 Cancelled Absolute Neutrophils 10.83 H Cancelled Absolute Lymphocytes 2.40 Cancelled Absolute Monocytes 0.88 H Cancelled Absolute Eosinophils 0.14 Cancelled Absolute Basophils 0.04 Cancelled RBC Morphology Cancelled Polychromasia Cancelled Hypochromasia Cancelled Poikilocytosis Cancelled Basophilic Stippling Cancelled Anisocytosis Cancelled Microcytosis Cancelled Macrocytosis Cancelled Spherocytes Cancelled Tear Drop Cells Cancelled Ovalocytes Cancelled Stomatocytes Cancelled Dial-[place] Bodies Cancelled Kimi Cells/Echinocytes Cancelled Acanthocytes (Spur) Cancelled Schistocytes Cancelled PT 10.7 Cancelled INR 1.1 Cancelled APTT 20.5 L Cancelled Sodium 142 Cancelled Potassium 4.3 Cancelled Chloride 110 H Cancelled Carbon Dioxide 20.4 L Cancelled Anion Gap 11.6 H Cancelled BUN 24 H Cancelled Creatinine 2.0 H Cancelled Est GFR (CKD-EPI 2020) 23.73 Cancelled Glucose 146 H Cancelled Calcium 8.8 Cancelled Total Bilirubin 2.66 H Cancelled AST 29 Cancelled ALT 21 Cancelled Alkaline Phosphatase 49 Cancelled Total Protein 5.4 L Cancelled Albumin 2.7 L Cancelled ABO/Rh Cancelled Antibody Screen Cancelled Crossmatch See Detail
--- NOTE | 2024-05-29 19:58 | DI.VRAD_ITS ---
PROCEDURE INFORMATION: Exam: XR Chest Exam date and time: 05/29/2024 6:23 PM Age: 88 years old Clinical indication: Other: Post line, right ij TECHNIQUE: Imaging protocol: Radiologic exam of the chest. Views: 1 view. COMPARISON: CR XR PORTABLE CHEST AP 05/21/2024 2:00 AM FINDINGS: Tubes, catheters and devices: Right IJ central line is well positioned. Distal tip is in the distal superior vena cava. Left chest pacemaker in position. Lungs: Lungs are clear bilaterally. Pleural spaces: No pleural effusion. No pneumothorax. Heart/Mediastinum: Normal heart size. Bones/joints: Unremarkable. IMPRESSION: 1. Right IJ central line is well positioned. No pneumothorax. 2. Clear lungs and pleural space. 3. Left chest pacemaker in position. Dictated and Authenticated by: Haroldo Collier MD. Ordering:ETIENNE Jerez MD
--- NOTE | 2024-05-29 20:43 | W.PC.ACHO ---
Registration Status: REG ER Primary Language: Preferred Language: Danish ED Information & Data Chief Complaint Abd Prob 05/29/24 18:19 Triage Note Pt was seen yesterday for 05/29/24 16:45 same issue. Pt is having bleeding into her stoma. Pt states bleeding has increased considerably. Pt states she is feeling dizzy and weak. Pt has not changed her ostomy bag since it was changed yesterday. Medical / Surgical History (Last Reviewed 05/28/24 @ 18:02 by Clair Lynn MD) Hypomagnesemia Elevated troponin H/O malignant neoplasm of colon History of breast cancer CKD (chronic kidney disease), stage III CONTRERAS (nonalcoholic steatohepatitis) Cirrhosis Ischemic neuropathy of foot PAD (peripheral artery disease) Colon cancer Hypertension Paroxysmal atrial fibrillation Breast cancer (Last Reviewed 05/28/24 @ 18:02 by Clair Lynn MD) Hemicolectomy (06/30/13) Colostomy Colonoscopy Most Recent Vital Signs Temperature 36.6 C 05/29/24 18:29 Temperature Source Temporal Artery Scan 05/29/24 18:29 Pulse 60 05/29/24 20:32 Pulse 62 05/29/24 19:01 Respiratory Rate 17 05/29/24 20:40 Respiratory Effort Normal, Non-Labored 05/29/24 17:53 Blood Pressure 105/33 L 05/29/24 20:32 Blood Pressure Mean 87 05/29/24 19:01 Pulse Oximetry 94 05/29/24 17:53 Oxygen Delivery Method Room Air 05/29/24 18:29 Oxygen Flow Rate 0 05/29/24 17:53 Pain Level 2 05/29/24 18:29 Allergies No Known Allergies Allergy (Unverified 05/29/24 16:48) Precautions Isolation Standard precaution 05/29/24 17:13 IV IV Catheter Type [Right Triple Lumen Subclavian Internal Jugular] IV Catheter Type [Left Forearm Peripheral IV ] IV Catheter Gauge [Left 18 Forearm] Diet Orders Category Date Time Status Nothing Per Oral [DIET] Nutrition 05/29/24 Dinner Active Diagnostics 05/29/24 05/29/24 05/29/24 Range/Units 21:30 17:11 17:10 WBC Pending Cancelled 14.38 H (4.4-10.8) 10^3/uL RBC Pending Cancelled 2.96 L (3.93-5.22) 10^6/uL Hgb Pending Cancelled 8.8 L (11.2-15.7) g/dL Hct Pending Cancelled 27.1 L (36.0-46.0) % MCV Pending Cancelled 92 (80-95) fL MCH Pending Cancelled 29.7 (27.0-33.0) pg MCHC Pending Cancelled 32.5 (32.0-36.0) % RDW Pending Cancelled 16.7 H (11.7-14.6) % Plt Count Pending Cancelled 135 (130-400) 10^3/uL MPV Pending Cancelled 9.7 (8.0-11.0) fL Immature Gran % Cancelled 0.6 % Neutrophils % Cancelled 75.3 % Band Neutrophils % Cancelled Lymphocytes % Cancelled 16.7 % Atypical Lymphs % Cancelled Monocytes % Cancelled 6.1 % Eosinophils % Cancelled 1.0 % Basophils % Cancelled 0.3 % Metamyelocytes % Cancelled Myelocytes % Cancelled Promyelocytes % Cancelled Other Cells % Cancelled Nucleated RBC % Cancelled 0.0 (0.0-0.3) % Absolute Neutrophils Cancelled 10.83 H (1.2-6.7) 10^3/uL Absolute Lymphocytes Cancelled 2.40 (1.2-3.4) 10^3/uL Absolute Monocytes Cancelled 0.88 H (0.1-0.8) 10^3/uL Absolute Eosinophils Cancelled 0.14 (0.0-0.7) 10^3/uL Absolute Basophils Cancelled 0.04 (0.0-0.2) 10^3/uL RBC Morphology Cancelled Polychromasia Cancelled Hypochromasia Cancelled Poikilocytosis Cancelled Basophilic Stippling Cancelled Anisocytosis Cancelled Microcytosis Cancelled Macrocytosis Cancelled Spherocytes Cancelled Tear Drop Cells Cancelled Ovalocytes Cancelled Stomatocytes Cancelled Dial-[place] Bodies Cancelled [place] Cells/Echinocytes Cancelled Acanthocytes (Spur) Cancelled Schistocytes Cancelled PT Cancelled 10.7 (9.1-11.1) sec INR Cancelled 1.1 (0.9-1.1) APTT Cancelled 20.5 L (23.6-32.8) sec Sodium Cancelled 142 (136-145) mmol/L Potassium Cancelled 4.3 (3.5-5.1) mmol/L Chloride Cancelled 110 H (98-107) mmol/L Carbon Dioxide Cancelled 20.4 L (21.0-32.0) mmol/L Anion Gap Cancelled 11.6 H (3-11) mmol/L BUN Cancelled 24 H (7-18) mg/dL Creatinine Cancelled 2.0 H (0.55-1.02) mg/dL Est GFR (CKD-EPI 2020) Cancelled 23.73 (mL/min/1.73m2) Glucose Cancelled 146 H (74-106) mg/dL Calcium Cancelled 8.8 (8.5-10.1) mg/dL Total Bilirubin Cancelled 2.66 H (0.2-1.0) mg/dL AST Cancelled 29 (15-37) U/L ALT Cancelled 21 (14-59) U/L Alkaline Phosphatase Cancelled 49 (46-116) U/L Total Protein Cancelled 5.4 L (6.4-8.2) g/dL Albumin Cancelled 2.7 L (3.4-5.0) g/dL ABO/Rh Cancelled Antibody Screen Cancelled Crossmatch See Detail Intake and Output - 24 Hour Total 05/29/24 16:43 thru 05/29/24 19:03 Weight 74.843 kg Falls Risk Assessment History of Falls No History 05/29/24 18:29 Contributing Factors Unstable 05/29/24 18:29 Ambulatory Aids Uses ambulatory device + 05/29/24 18:29 Tubes/Lines None 05/29/24 18:29 Gait Evaluation W/any additional score 05/29/24 18:29 Cognition No cognitive impairment 05/29/24 18:29 Fall Total Score 53 05/29/24 18:29 Level of Risk High Risk 05/29/24 18:29 Problems (Last Reviewed 05/28/24 @ 18:02 by Clair Lynn MD) 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 (Acute) Hemorrhagic shock (Acute) v v v v v v v v v Sending and/or Receiving Nurses: Please use comment section below to note any information pertinent to the patient hand-off not included above. Information / Comments: Report received from: Varsha AVILA
[2024-05-29] MEDS: Normal Saline Flush 10 ML SYR (21:58)
[2024-05-29] MEDS: Lactated Ringers 1,000 ML 30 ML IV (21:58)
[2024-05-29] MEDS: Miconazole 2% Topical Powder 85 GM BTL (21:59)
[2024-05-29 22:02] LABS: HCT 26.6 % (36.0-46.0); MCH 29.8 pg (27.0-33.0); MCHC 33.1 % (32.0-36.0); MCV 90 fL (80-95); MPV 9.3 fL (8.0-11.0); RBC 2.95 10^6/uL (3.93-5.22); RDW 15.7 % (11.7-14.6); RDW-SD 50.2 fL; WBC 8.85 10^3/uL (4.4-10.8)
[2024-05-29 22:32] LABS: HGB 8.8 g/dL (11.2-15.7); Platelet Count 93 10^3/uL (130-400)
[2024-05-30] VITALS (65 sets, daily range): BP systolic 70–138; BP diastolic 44–95; PULSE 58–134; RESP 10–21; TEMP 36.5–37.3; O2SAT 93–98
[2024-05-30] MEDS: Normal Saline Flush 10 ML SYR IVP ×3 (05:05→20:30)
[2024-05-30 06:18] LABS: Abs Immature Grans 0.02 10^3/uL (0.0-0.06); Absolute Basophil Count 0.02 10^3/uL (0.0-0.2); Absolute Eosinophil Count 0.11 10^3/uL (0.0-0.7); Absolute Lymphocyte Count 1.15 10^3/uL (1.2-3.4); Absolute Monocyte Count 0.44 10^3/uL (0.1-0.8); Absolute Neutrophil Count 4.77 10^3/uL (1.2-6.7); Basophils % 0.3 %; Eosinophils % 1.7 %; HCT 29.7 % (36.0-46.0); Immature Grans % 0.3 %; Lymphocytes % 17.7 %; MCH 30.2 pg (27.0-33.0); MCHC 33.7 % (32.0-36.0); MCV 90 fL (80-95); Monocytes % 6.8 %; Neutrophils % 73.2 %; RBC 3.31 10^6/uL (3.93-5.22); RDW 15.4 % (11.7-14.6); RDW-SD 49.5 fL; WBC 6.51 10^3/uL (4.4-10.8)
--- NOTE | 2024-05-30 06:31 | W.PM.PROGNOT ---
Date of Service Date of service: 05/30/24 Time of Service: 07:30 Assessment and Plan Assessment and plan (1) 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: Status: Acute Assessment and plan: 88-year-old woman who had hemorrhage from her end colostomy. This has been a chronic problem for the acutely it seems worse than usual. She is hemodynamically stable at this point and there has been no further bleeding. Her hemoglobin is stable. Will check another hemoglobin this afternoon just to be sure. At this point she being downgraded out of the ICU. She is no longer critically ill and no longer requires every hour monitoring. We will give her a diet and slowly advance to regular diet and hopefully she can be discharged home tomorrow. I will consult the medical team to manage any heart rate or rhythm issues or any other medical issues that arise. She was just admitted from home in the last 12 hours. She does not need a PT consult. I anticipate rapid discharge plan for her. Subjective Subjective Interval history since last seen: Overnight there were no bleeding events. Patient's hemoglobin this morning has come in at 10. Patient has no complaints at the bedside. Adequate urine output. Exam Narrative Exam Narrative: General: Nontoxic, comfortable and interactive Neuro: Alert and oriented x 3 Psych: Good mood and affect, good insight and understanding into her conditions Chest: Nonlabored breathing Heart: Regular/paced Abdomen: Soft, nondistended and nontender. Ostomy has liquid stool in it. No evidence of bright red blood. Objective Last Vital Signs Temp 97.9 F 05/30/24 04:45 Pulse 62 05/30/24 04:45 Resp 16 05/30/24 04:45 BP 119/56 L 05/30/24 04:45 Pulse Ox 97 05/30/24 04:45 Laboratory Results - last 24 hr 05/29/24 05/29/24 05/29/24 17:00 17:10 17:11 WBC 14.38 H Cancelled RBC 2.96 L Cancelled Hgb 8.8 L Cancelled Hct 27.1 L Cancelled MCV 92 Cancelled MCH 29.7 Cancelled MCHC 32.5 Cancelled RDW 16.7 H Cancelled Plt Count 135 Cancelled MPV 9.7 Cancelled Immature Gran % 0.6 Cancelled Neutrophils % 75.3 Cancelled Band Neutrophils % Cancelled Lymphocytes % 16.7 Cancelled Atypical Lymphs % Cancelled Monocytes % 6.1 Cancelled Eosinophils % 1.0 Cancelled Basophils % 0.3 Cancelled Metamyelocytes % Cancelled Myelocytes % Cancelled Promyelocytes % Cancelled Other Cells % Cancelled Nucleated RBC % 0.0 Cancelled Absolute Neutrophils 10.83 H Cancelled Absolute Lymphocytes 2.40 Cancelled Absolute Monocytes 0.88 H Cancelled Absolute Eosinophils 0.14 Cancelled Absolute Basophils 0.04 Cancelled RBC Morphology Cancelled Polychromasia Cancelled Hypochromasia Cancelled Poikilocytosis Cancelled Basophilic Stippling Cancelled Anisocytosis Cancelled Microcytosis Cancelled Macrocytosis Cancelled Spherocytes Cancelled Tear Drop Cells Cancelled Ovalocytes Cancelled Stomatocytes Cancelled Dial-[place] Bodies Cancelled [place] Cells/Echinocytes Cancelled Acanthocytes (Spur) Cancelled Schistocytes Cancelled PT 10.7 Cancelled INR 1.1 Cancelled APTT 20.5 L Cancelled Sodium 142 Cancelled Potassium 4.3 Cancelled Chloride 110 H Cancelled Carbon Dioxide 20.4 L Cancelled Anion Gap 11.6 H Cancelled BUN 24 H Cancelled Creatinine 2.0 H Cancelled Est GFR (CKD-EPI 2020) 23.73 Cancelled Glucose 146 H Cancelled Calcium 8.8 Cancelled Total Bilirubin 2.66 H Cancelled AST 29 Cancelled ALT 21 Cancelled Alkaline Phosphatase 49 Cancelled Total Protein 5.4 L Cancelled Albumin 2.7 L Cancelled ABO/Rh A Positive Cancelled Antibody Screen POSITIVE Cancelled Antibody Identification Anti-K Crossmatch See Detail See Detail 05/29/24 21:50 WBC 8.85 RBC 2.95 L Hgb 8.8 L Hct 26.6 L MCV 90 MCH 29.8 MCHC 33.1 RDW 15.7 H Plt Count 93 L MPV 9.3 Immature Gran % Neutrophils % Band Neutrophils % Lymphocytes % Atypical Lymphs % Monocytes % Eosinophils % Basophils % Metamyelocytes % Myelocytes % Promyelocytes % Other Cells % Nucleated RBC % Absolute Neutrophils Absolute Lymphocytes Absolute Monocytes Absolute Eosinophils Absolute Basophils RBC Morphology Polychromasia Hypochromasia Poikilocytosis Basophilic Stippling Anisocytosis Microcytosis Macrocytosis Spherocytes Tear Drop Cells Ovalocytes Stomatocytes Dial-[place] Bodies [place] Cells/Echinocytes Acanthocytes (Spur) Schistocytes PT INR APTT Sodium Potassium Chloride Carbon Dioxide Anion Gap BUN Creatinine Est GFR (CKD-EPI 2020) Glucose Calcium Total Bilirubin AST ALT Alkaline Phosphatase Total Protein Albumin ABO/Rh Antibody Screen Antibody Identification Crossmatch Time Spent with Patient Time Spent with Patient: <25 minutes Time was spent: preparing to see the patient(eg.review tests), referring, communicating with other health livestock caretaker, indepentently interpreting results and counseling the patient
[2024-05-30 06:38] LABS: BUN 19 mg/dL (7-18); CREATININE 1.7 mg/dL (0.55-1.02); Calcium 7.8 mg/dL (8.5-10.1); Chloride 112 mmol/L (98-107); Estimated GFR 28.84 (mL/min/1.73m2); Glucose 85 mg/dL (74-106); Magnesium 1.4 mg/dL (1.8-2.4); PHOSPHORUS 2.7 mg/dL (2.6-4.7); Potassium 3.8 mmol/L (3.5-5.1); Sodium 143 mmol/L (136-145)
[2024-05-30 06:49] LABS: PTT Activated 18.7 sec (23.6-32.8); Prothrombin Time 10.4 sec (9.1-11.1)
[2024-05-30 07:07] LABS: Diff Comment Diff Reviewed; RBC Morphology Normal
[2024-05-30] MEDS: Magnesium Oxide 400 MG TAB PO (08:29)
[2024-05-30] MEDS: Gabapentin 600 MG TAB PO ×2 (08:29→20:30)
[2024-05-30] MEDS: Cholecalciferol (Vitamin D3) 1,000 UNIT TAB 5000 UNITS PO (08:29)
--- NOTE | 2024-05-30 11:21 | INITIAL_ITS ---
Date of service: 05/30/24 Time of Service: 11:21 Care Management Initial Assmt Initial Assessment Reason for Hospitalization: GI bleeding Functional Status/Living Situation Patient Presentation: Annamarie was sitting up in bed when CM met with her. She stated that she is feeling much better today than when she arrived. She discussed her family; she and her Mayur have been for 70 years. They had five children; two have , one son lives in [place], a daughter lives in [place], but they do not have any contact with her, and their other daughter, Iris lives in [facility] and is very supportive. Annamarie stated that she and Mayur are very independent, and help each other out; she cooks the meals and he cleans the floors. She stated that Mayur mows a couple of lawns in the summer, which he enjoys, but she doesn't think he will be able to continue after this summer. Annamarie stated that she has been getting support from her PCP in [place], [place], as they are considering moving in that direction. She reported that they are also on the wait list at the [facility]. Annamarie expressed interest in learning more about lifeline; CM sent a referral to [facility] for support with lifeline, as well as housing support. CM will continue to follow. Town of Residence: [place] Resides with: Spouse (Mayur) Natural Supports: Daughter and son in law, Iris and Hipolito Rivas Employment Status: Retired Instrumental Activities of Daily Living (ADLs): Independent Medications Medication Management: No Issues/Barriers identified Physical Functioning/Mobility Assistive Device: 4WW Advance Directives Advance Directives: Do you have an Advance Directive: N 04/30/23 08:38 AD On File at [facility]: N 04/30/23 08:38 Date Asked 05/29/24 05/29/24 17:11 AD Date Reviewed COLST On File at [facility] COLST Date Scanned Code Status Resuscitation Status DNR/DNI Insurance Coverage/Financial Issues Insurance: [facility]. /BS supplement. ACO Member: No Care Team Visit Care Team Role Provider Type Dede Miller Primary Care Provider NON-[facility] STAFF PHYSICIAN Solitario Alberto MD Emergency Provider [facility] STAFF PHYSICIAN Efren Webb MD Admit Provider [facility] STAFF PHYSICIAN Attending Provider Discharge Potential Discharge Needs: Surgical F/U Appt Anticipated Barriers to Discharge: Medical Status Patient/Family Education Needs: Review discharge instructions, discuss Ask Me Three Transportation: Private vehicle Plan: Anticipate Annamarie will return home once medically cleared. She will be driven home via private vehicle by family. She will follow up with her PCP and discharge plan of care. CM will continue to follow. PFSH All Active Problems (Updated 05/30/24 @ 13:28 by Jesse Izaguirre MD) Chronic atrial fibrillation with RVR (Acute) 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 (Acute) Hemorrhagic shock (Acute) Shock circulatory (Acute) Coagulopathy (Acute) PSVT (paroxysmal supraventricular tachycardia) (Acute) At high risk for skin breakdown (Acute) Parastomal ulcer of enterostomy (Acute) 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 (Acute) Abn react-external stoma (Acute) Pacemaker (Chronic) Elevated serum creatinine (Acute) Chronic pain in left foot (Acute) Hypercholesterolemia (Acute) Anemia due to GI blood loss (Acute) Medical History Hypomagnesemia Elevated troponin H/O malignant neoplasm of colon History of breast cancer CKD (chronic kidney disease), stage III CONTRERAS (nonalcoholic steatohepatitis) Cirrhosis Ischemic neuropathy of foot PAD (peripheral artery disease) Colon cancer Hypertension Paroxysmal atrial fibrillation Breast cancer Remains RADHA Surgical History Hemicolectomy (06/30/13) Right, 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 [place] [facility] [place]no recurrence Social History Smoking/Tobacco Use Status: Never Smoking risk assessment performed?: Yes Alcohol Intake: never Drug use: Never Housing: house Do you feel safe at home: Yes Do you feel safe in your relationship?: Yes SDOH(Care Management) Screening Will the Patient Participate in the Screening?: Yes Do you worry about having a steady place to live?: no Problems where you live: no known problems In the past 12 months, have you had to go without electric, gas, oil or water in your home?: no Have you or anyone in your house had to go without enough food to eat?: no Has lack of transportation kept you from medical appointments or from doing things needed for daily living?: no Has anyone in your support network made you feel unsafe for any reason?: no Social Determinants of Health Comments(SDOH Details): pt reports that she and her know we need to downsize his hearing is no good , he can't hear me call for help. I don't have lifeline because we cant afford it
[2024-05-30] MEDS: Metoprolol CR 50 MG TABCR PO (12:27)
--- NOTE | 2024-05-30 13:16 | MCONE_ITS ---
Date of service: 05/30/24 Time of Service: 13:17 Assessment and Plan Assessment and plan (1) Chronic atrial fibrillation with RVR: Status: Acute Assessment and plan: - Upon initial presentation patient was in A-fib RVR -This was likely secondary to hemorrhagic shock, and improved after patient received first 2 units of packed red blood cells -She has pacemaker in place and has been restarted on her home Toprol-XL 50 mg daily -Will continue to monitor heart rate, if it begins to significantly increase or go into RVR will give additional doses of metoprolol and potentially increase her daily Toprol XL (2) 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: Status: Acute Assessment and plan: - Continue to manage as per general surgery (3) Hemorrhagic shock: Status: Acute Assessment and plan: Status post total 3 units packed red blood cells -Initial hemoglobin 8.8, up to 10 on a.m. 05/30/2024 -Continue to monitor hemoglobin as per general surgery recommendations (4) PSVT (paroxysmal supraventricular tachycardia): Status: Acute Assessment and plan: - Continue beta-shine as noted above (5) Pacemaker: Status: Chronic History of Present Illness History of Present Illness Chief Complaint: Consult for A-fib Narrative: 88-year-old female with a past medical history of paroxysmal SVT, chronic pain, and hemorrhagic shock from ileostomy presenting the emergency department with bleeding from her ostomy site. Patient states that she had recently been at [facility] where she was taken to the OR for ongoing bleeding stoma during that hospitalization she received a total of 6 units of packed red blood cells. Apparently they were able to get hemostasis and the patient was discharged. However, since that time she has had again increased bleeding from her ostomy into her bag, with associated lightheadedness. She denies any fevers, nausea, vomiting, abdominal pain. In the emergency department the patient was noted as being hypotensive with a blood pressure 75/52, tachycardic with a heart rate in the 140s secondary to A- fib RVR, initial hemoglobin of 8.8 and likely source of bleeding from patient's ostomy site. General surgery was contacted in the emergency department, and after being given 2 units of packed red blood cells patient was hemodynamically stable as it was determined her hypotension was likely secondary to A-fib RVR as a result of acute blood loss anemia. Since that time she has received a total of 3 units of packed red blood cells and has had stable heart rate in the 60s. However, general surgery requested consultation for management of heart rate and hemoglobin monitoring. Review of Systems All systems reviewed & are unremarkable except as noted in HPI and below PFSH All Active Problems (Updated 05/30/24 @ 13:28 by Jesse Izaguirre MD) Chronic atrial fibrillation with RVR (Acute) 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 (Acute) Hemorrhagic shock (Acute) Shock circulatory (Acute) Coagulopathy (Acute) PSVT (paroxysmal supraventricular tachycardia) (Acute) At high risk for skin breakdown (Acute) Parastomal ulcer of enterostomy (Acute) 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 (Acute) Abn react-external stoma (Acute) Pacemaker (Chronic) Elevated serum creatinine (Acute) Chronic pain in left foot (Acute) Hypercholesterolemia (Acute) Anemia due to GI blood loss (Acute) Medical History Hypomagnesemia Elevated troponin H/O malignant neoplasm of colon History of breast cancer CKD (chronic kidney disease), stage III CONTRERAS (nonalcoholic steatohepatitis) Cirrhosis Ischemic neuropathy of foot PAD (peripheral artery disease) Colon cancer Hypertension Paroxysmal atrial fibrillation Breast cancer Remains RADHA Surgical History Hemicolectomy (06/30/13) Right, 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 [facility] [place] Social History Smoking/Tobacco Use Status: Never Smoking risk assessment performed?: Yes Alcohol Intake: never Drug use: Never Housing: house Do you feel safe at home: Yes Do you feel safe in your relationship?: Yes Exam Narrative Exam Narrative: Well-appearing older female laying in bed in no acute distress, ANO x 4, heart irregularly irregular, rate in the 60s, lungs clear to auscultation bilaterally, abdomen soft, nontender, nondistended with ostomy having liquid output and no visible signs of additional hemorrhage Results Last Vital Signs Temp 98.1 F 05/30/24 12:32 Pulse 60 05/30/24 11:00 Resp 17 05/30/24 10:32 BP 117/47 L 05/30/24 11:00 Pulse Ox 96 05/30/24 10:32 Labs 05/30/24 14:00 05/30/24 05:39 Labs: Laboratory Results - last 24 hr 05/29/24 05/29/24 05/29/24 17:00 17:10 17:11 WBC 14.38 H Cancelled RBC 2.96 L Cancelled Hgb 8.8 L Cancelled Hct 27.1 L Cancelled MCV 92 Cancelled MCH 29.7 Cancelled MCHC 32.5 Cancelled RDW 16.7 H Cancelled Plt Count 135 Cancelled MPV 9.7 Cancelled Immature Gran % 0.6 Cancelled Neutrophils % 75.3 Cancelled Band Neutrophils % Cancelled Lymphocytes % 16.7 Cancelled Atypical Lymphs % Cancelled Monocytes % 6.1 Cancelled Eosinophils % 1.0 Cancelled Basophils % 0.3 Cancelled Metamyelocytes % Cancelled Myelocytes % Cancelled Promyelocytes % Cancelled Other Cells % Cancelled Nucleated RBC % 0.0 Cancelled Absolute Neutrophils 10.83 H Cancelled Absolute Lymphocytes 2.40 Cancelled Absolute Monocytes 0.88 H Cancelled Absolute Eosinophils 0.14 Cancelled Absolute Basophils 0.04 Cancelled RBC Morphology Cancelled Polychromasia Cancelled Hypochromasia Cancelled Poikilocytosis Cancelled Basophilic Stippling Cancelled Anisocytosis Cancelled Microcytosis Cancelled Macrocytosis Cancelled Spherocytes Cancelled Tear Drop Cells Cancelled Ovalocytes Cancelled Stomatocytes Cancelled Dial-[place] Bodies Cancelled [place] Cells/Echinocytes Cancelled Acanthocytes (Spur) Cancelled Schistocytes Cancelled PT 10.7 Cancelled INR 1.1 Cancelled APTT 20.5 L Cancelled Sodium 142 Cancelled Potassium 4.3 Cancelled Chloride 110 H Cancelled Carbon Dioxide 20.4 L Cancelled Anion Gap 11.6 H Cancelled BUN 24 H Cancelled Creatinine 2.0 H Cancelled Est GFR (CKD-EPI 2020) 23.73 Cancelled Glucose 146 H Cancelled Calcium 8.8 Cancelled Phosphorus Magnesium Total Bilirubin 2.66 H Cancelled AST 29 Cancelled ALT 21 Cancelled Alkaline Phosphatase 49 Cancelled Total Protein 5.4 L Cancelled Albumin 2.7 L Cancelled ABO/Rh A Positive Cancelled Antibody Screen POSITIVE Cancelled Antibody Identification Anti-K Antigen Identification Not Applicable Crossmatch See Detail See Detail 05/29/24 05/30/24 21:50 05:39 WBC 8.85 6.51 RBC 2.95 L 3.31 L Hgb 8.8 L 10.0 L Hct 26.6 L 29.7 L MCV 90 90 MCH 29.8 30.2 MCHC 33.1 33.7 RDW 15.7 H 15.4 H Plt Count 93 L MPV 9.3 Immature Gran % 0.3 Neutrophils % 73.2 Band Neutrophils % Lymphocytes % 17.7 Atypical Lymphs % Monocytes % 6.8 Eosinophils % 1.7 Basophils % 0.3 Metamyelocytes % Myelocytes % Promyelocytes % Other Cells % Nucleated RBC % 0.0 Absolute Neutrophils 4.77 Absolute Lymphocytes 1.15 L Absolute Monocytes 0.44 Absolute Eosinophils 0.11 Absolute Basophils 0.02 RBC Morphology Normal Polychromasia Hypochromasia Poikilocytosis Basophilic Stippling Anisocytosis Microcytosis Macrocytosis Spherocytes Tear Drop Cells Ovalocytes Stomatocytes Dial-[place] Bodies [place] Cells/Echinocytes Acanthocytes (Spur) Schistocytes PT 10.4 INR 1.0 APTT 18.7 L Sodium 143 Potassium 3.8 Chloride 112 H Carbon Dioxide 22.0 Anion Gap 9.0 BUN 19 H Creatinine 1.7 H Est GFR (CKD-EPI 2020) 28.84 Glucose 85 Calcium 7.8 L Phosphorus 2.7 Magnesium 1.4 L Total Bilirubin AST ALT Alkaline Phosphatase Total Protein Albumin ABO/Rh Antibody Screen Antibody Identification Antigen Identification Crossmatch
[2024-05-30 14:10] LABS: HCT 32.6 % (36.0-46.0); HGB 10.9 g/dL (11.2-15.7)
--- NOTE | 2024-05-30 16:45 | PHA.REVIEW2 ---
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 (Acute) Hemorrhagic shock (Acute) PSVT (paroxysmal supraventricular tachycardia) (Acute) No Known Allergies Allergy (Unverified 05/29/24 16:48) Resuscitation Status DNR/DNI Height 4 ft 11 in Weight 72.9 kg Pharmacy Admission Review Renal Dosing Renal Dosing: BUN 19 mg/dL (7-18) H 05/30/24 05:39 Creatinine 1.7 mg/dL (0.55-1.02) H 05/30/24 05:39 Medications needing adjustments: Reviewed (CrCl 26.35 mL/min) List of meds needing interventions: Current medications are okay Anticoagulation Anticoagulation: Hgb 10.9 g/dL (11.2-15.7) L 05/30/24 14:00 Hct 32.6 % (36.0-46.0) L 05/30/24 14:00 Plt Count 10^3/uL (130-400) 05/30/24 05:39 INR 1.0 (0.9-1.1) 05/30/24 05:39 Creatinine 1.7 mg/dL (0.55-1.02) H 05/30/24 05:39 DVT Prophylaxis: Reviewed (SCDs - GI bleed) Relevant Labs Relevant Labs: Sodium 143 mmol/L (136-145) 05/30/24 05:39 Potassium 3.8 mmol/L (3.5-5.1) 05/30/24 05:39 Chloride 112 mmol/L (98-107) H 05/30/24 05:39 Phosphorus 2.7 mg/dL (2.6-4.7) 05/30/24 05:39 Magnesium 1.4 mg/dL (1.8-2.4) L 05/30/24 05:39 Electrolytes, C-Reactive P, ESR: Reviewed (Mg 1.4 -repleting, hgb increased from 8.8 to 10.9 after 3 units of PRBC) Cardiac Review Cardiac Review: Blood Pressure [Standing] 70/60 1348 Blood Pressure [Standing] 106/67 1109 Blood Pressure [Sitting] 109/53 1342 Blood Pressure [Sitting] 119/54 1107 Blood Pressure [Sitting] 127/62 0726 Blood Pressure [Supine] 112/55 1356 Blood Pressure [Left Arm] 103/55 1555 Blood Pressure 70/60 1356 Blood Pressure 113/55 1356 Blood Pressure 109/53 1342 Blood Pressure 125/80 1301 BP, HR, EF%: Reviewed (BP 103/55 and HR 60) QTc Review QTc: Reviewed (446 from 05/21/24) IV to PO Switch IV Medications: Reviewed Home Meds Home Med List reviewed: Reviewed Current Meds Current Medication Order Review: Reviewed
[2024-05-31] VITALS (27 sets, daily range): BP systolic 106–147; BP diastolic 36–84; PULSE 59–77; RESP 12–20; TEMP 36.3–37.6; O2SAT 89–98; BMI 33.4
[2024-05-31] MEDS: Lactated Ringers 1,000 ML 30 ML IV (03:56)
[2024-05-31 06:57] LABS: HCT 27.8 % (36.0-46.0); HGB 9.5 g/dL (11.2-15.7)
[2024-05-31] MEDS: Magnesium Oxide 400 MG TAB PO (08:37)
[2024-05-31] MEDS: Metoprolol CR 50 MG TABCR PO (08:37)
[2024-05-31] MEDS: Gabapentin 600 MG TAB PO (08:37)
[2024-05-31] MEDS: Cholecalciferol (Vitamin D3) 1,000 UNIT TAB 5000 UNITS PO (08:41)
--- NOTE | 2024-05-31 10:25 | PDOC.CMPRO ---
Date of service: 05/31/24 Time of Service: 10:25 Care Management Progress Note Progress Note Text Progress Note Text: Annamarie was lying in bed when CM met with her. She reported that she spoke with the surgeon earlier today, and she will be going to the OR for an enteroscopy today. Per RN, she will likely remain overnight for observation after the procedure. Annamarie appeared tired during the conversation; CM let her rest before her procedure, which she was expecting to happen any time now. CM will continue to follow. Discharge Potential Discharge Needs: PCP F/U Appt Anticipated Barriers to Discharge: Medical Status Patient/Family Education Needs: Review discharge instructions, discuss Ask Me Three Transportation: Private vehicle Plan: Anticipate Annamarie will return home when medically cleared. Her will drive her home via private vehicle. She will follow up with her PCP and discharge plan of care. CM will continue to follow. SDOH(Care Management) Screening Will the Patient Participate in the Screening?: Yes Do you worry about having a steady place to live?: no Problems where you live: no known problems In the past 12 months, have you had to go without electric, gas, oil or water in your home?: no Have you or anyone in your house had to go without enough food to eat?: no Has lack of transportation kept you from medical appointments or from doing things needed for daily living?: no Has anyone in your support network made you feel unsafe for any reason?: no Social Determinants of Health Comments(SDOH Details): pt reports that she and her know we need to downsize his hearing is no good , he can't hear me call for help. I don't have lifeline because we cant afford it
--- NOTE | 2024-05-31 12:45 | ANES.PREOP_ITS ---
General Info Date of Service Date Performed: 05/31/24 Height: 4 ft 11 in Weight: 75.1 kg Body Mass Index (BMI): 33.4 Surgical Procedure: Operation Date: 05/29/24 18:30 Proposed Procedure Side Surgeon p Exploratory Laparotomy Efren Webb MD Operation Date: 05/31/24 12:20 Proposed Procedure Side Surgeon p Colonoscopy Efren Webb MD Meds Allergies and Home Medications Allergies Allergy/AdvReac Type Severity Reaction Status Date / Time No Known Allergies Allergy Unverified 05/29/24 16:48 Home Medication Medication Instructions Recorded gabapentin 600 mg tablet 600 mg PO BID 09/16/16 magnesium 250 mg tablet 250 mg PO DAILY #20 tabs 06/04/23 cholecalciferol (vitamin D3) 125 125 mcg PO DAILY 06/11/23 mcg (5,000 unit) capsule metoprolol succinate 50 mg 50 mg PO DAILY 05/21/24 tablet,extended release 24 hr Current Visit Medications: Current Medications Generic Name Dose Route Start Last Admin Trade Name Freq PRN Reason Stop Dose Admin Acetaminophen 500 mg 05/29/24 20:14 Acetaminophen 500 Mg Tab PO Q4H PRN PRN Cholecalciferol 5,000 units 05/30/24 08:30 05/31/24 08:41 Cholecalciferol (Vitamin D3) 1,000 Unit Tab PO 5,000 units DAILY HENNA Administration Gabapentin 300 mg 05/31/24 20:00 Gabapentin 300 Mg Cap PO BID HENNA Ringer's Solution 1,000 mls @ 30 mls/hr 05/29/24 20:15 05/31/24 03:56 IV 30 mls/hr INFUSION HENNA Administration Sodium Chloride 500 mls @ 0 mls/hr 05/30/24 10:45 Saline 500ml Bag IV DIRECTED PRN As Directed IV Miscellaneous Supplies 1 each 05/30/24 10:45 Iv Access IV DIRECTED HENNA Magnesium Oxide 400 mg 05/30/24 08:30 05/31/24 08:37 Magnesium Oxide 400 Mg Tab PO 400 mg DAILY HENNA Administration Metoprolol Succinate 50 mg 05/30/24 08:30 05/31/24 08:37 Metoprolol Cr 50 Mg Tabcr PO 50 mg DAILY HENNA Administration Sodium Chloride 0 ml 05/30/24 04:39 05/30/24 20:30 Normal Saline Flush 10 Ml Syr IVP 60 ml PRN PRN Administration PFSH Active Problems Active Problems: Problem Status Onset Code Chronic atrial fibrillation with RVR I48.20 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 K94.11 Hemorrhagic shock R57.8 Shock circulatory R57.9 Coagulopathy D68.9 PSVT (paroxysmal supraventricular tachycardia) I47.1 At high risk for skin breakdown Z91.89 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 K94.11 Abn react-external stoma Y83.3 Pacemaker Z95.0 Elevated serum creatinine R79.89 Chronic pain in left foot Hypercholesterolemia Anemia due to GI blood loss D50.0 Medical History Medical History Hypomagnesemia Elevated troponin H/O malignant neoplasm of colon History of breast cancer CKD (chronic kidney disease), stage III CONTRERAS (nonalcoholic steatohepatitis) Cirrhosis Ischemic neuropathy of foot PAD (peripheral artery disease) Colon cancer Hypertension Paroxysmal atrial fibrillation Breast cancer Remains RADHA Surgical History Surgical History Hemicolectomy (06/30/13) Right, 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 aPrk @ [facility] [place], 2014-no recurrence Tobacco Smoking/Tobacco Use Status: Never Alcohol Alcohol Intake: never Substance Use Substance use: Never Vital Signs and Lab Results Vital Signs Most Recent Vital Signs in EMR: Most Recent Vital Signs Temp Pulse Resp BP Pulse Ox 36.7 C 60 16 110/51 L 96 05/31/24 04:07 05/31/24 12:02 05/31/24 12:02 05/31/24 12:02 05/31/24 11:18 Lab Results 05/31/24 05:30 05/30/24 05:39 Blood Type / Crossmatch: 2 Antibody Screen POSITIVE 05/29/24 Crossmatch See Detail 05/29/24 Complete Blood Count: 2 White Blood Count 6.51 10^3/uL (4.4-10.8) 05/30/24 05:39 Red Blood Count 3.31 10^6/uL (3.93-5.22) L 05/30/24 05:39 Hemoglobin 9.5 g/dL (11.2-15.7) L 05/31/24 05:30 Hematocrit 27.8 % (36.0-46.0) L 05/31/24 05:30 Platelet Count 10^3/uL (130-400) 05/30/24 05:39 Complete Metabolic Panel: 2 Sodium 143 mmol/L (136-145) 05/30/24 05:39 Potassium 3.8 mmol/L (3.5-5.1) 05/30/24 05:39 Chloride 112 mmol/L (98-107) H 05/30/24 05:39 Carbon Dioxide 22.0 mmol/L (21.0-32.0) 05/30/24 05:39 BUN 19 mg/dL (7-18) H 05/30/24 05:39 Creatinine 1.7 mg/dL (0.55-1.02) H 05/30/24 05:39 Est GFR (CKD-EPI 2020) 28.84 (mL/min/1.73m2) 05/30/24 05:39 Magnesium 1.4 mg/dL (1.8-2.4) L 05/30/24 05:39 Calcium 7.8 mg/dL (8.5-10.1) L 05/30/24 05:39 Albumin 2.7 g/dL (3.4-5.0) L 05/29/24 17:10 Glucose 85 mg/dL (74-106) 05/30/24 05:39 Liver Function Panel: 2 Alanine Aminotransferase (ALT/SGPT) 21 U/L (14-59) 05/29/24 17: 10 Aspartate Amino Transf (AST/SGOT) 29 U/L (15-37) 05/29/24 17:10 Coagulation Panel: 2 INR International Normalized Ratio 1.0 (0.9-1.1) 05/30/24 05:3 9 Prothrombin Time 10.4 sec (9.1-11.1) 05/30/24 05:39 Activated Partial Thromboplast Time 18.7 sec (23.6-32.8) L 05/30/24 05:39 Cardiac Panel: 2 Troponin I < 50 ng/L (< or =60) 05/21/24 Arterial Blood Gas: 2 No Data to Display Venous Blood Gas: 2 No Data to Display Pancreas Panel: 2 Lipase 184 U/L (16-77) H 05/21/24 01:05 Thyroid Panel: 2 No Data to Display Infectious Disease: 2 No Data to Display Blood Cultures: 2 No Data to Display Toxicology Panel: 2 No Data to Display Imaging and Studies Imaging and Studies Study information below may be from another EMR and interpreted by another provider. Please see original notes in EMR for more complete details. EKG Summary: 11/04/2021: RBBB with left axis bifacicular block. ? LVH. Anesthesia Assessment and Plan Anesthesia History Personal History: No History of Anesthesia Complications Family History: No Family History of Anesthesia Complications Exercise Tolerance Exercise Tolerance: Metabolic Equivalents>4 Cardiac & Pulmonary Exam Cardiac Exam: Normal S1/S2 Heart Sounds Pulmonary Exam: Clear Bilateral Breath Sounds Implantable Cardiac Device Does patient have a Pacemaker or an ICD?: Yes Device Shop Teacher:: van alonso DR A2DR01 DDDR Reason for Placement:: HR Date of Last Device Interrogation:: Unknown Airway Exam Known Difficult Airway: No Mallampati Class: 3 Mouth Opening: Narrow (< 3cm) Thyromental Distance: Less than 3 cm Neck Range of Motion: Full ROM Neck Circumference: Normal Teeth Condition: Generalized Poor Dentition Airway Comments: #21, 11 missing ASA Classification ASA Score: ASA 3 Emergency Case?: Yes NPO Status NPO Status: NPO Clears >2 hours, Solids >8 hours Anesthesia Plan Resuscitation Status: DNR Maintained Throughout Perioperative Period Anesthesia Technique: MAC Anesthesia Airway Planned: Natural Airway Monitors Used: Standard Monitors Preoperative Comments:: 88 yo s/p bowel resection/colostomy at [facility] with bleeding from the stoma. Has received multiple transfusions and her hgb has been continuing to trend down. She had not had much in the way of obvious bleeding until today. Plan for minimal to zero sedation for brief colo via colostomy. Wishes to remain DNR through out procedure, even if it related to an anesthesia side effect. Sig PMHx: HTN, CKD, pAFib, Pacer (van alonso DR [id number] DDDR), s/p hemicolectomy with colostomy. Echo: LVEF 55-60%. moderate . trace MRChayo Previous Anes: Mac 3 grade 1 in 2013 for ex lap. LMA 4 2005 for mastectomy.
--- NOTE | 2024-05-31 12:58 | W.PM.PROGNOT ---
Date of Service Date of service: 05/31/24 Time of Service: 12:59 Assessment and Plan Assessment and plan (1) 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: Status: Acute Assessment and plan: Continues to have a little bit of bleeding from her ostomy and her hemoglobin this morning is slightly down. I am going to rescope her ostomy. I do not think there is any chance that this is from a foregut location. My best guess is that there is going to be a lesion at the fascial level of the ostomy. It probably hemorrhages from time to time and I suspect that a lot of this hemorrhage sits in the intestine until getting pushed out with stool. Especially since she is laying flat on her back for the most part, that makes the most sense. Then whenever she sits up or stands up, the blood then comes out of the ostomy by gravity. I am not sure but I am going to look and see if I can find the site of bleeding. I am quite confident the site is within a few centimeters of the ostomy opening. I may not see anything, but it is worth looking again. Simple enough to do anyway. Overall plan: Scope the ostomy Subjective Subjective Interval history since last seen: Annamarie had a great night. There has been no more bleeding and she is tolerating a diet. I was planning to send her home however she started having a slow tiny trickle of blood from the ostomy and I came back to evaluated at the bedside. Exam Narrative Exam Narrative: Ostomy: There is definitely a small amount of blood oozing from her ostomy orifice. It is NOT bleeding from the edge of her ostomy. Objective Last Vital Signs Temp 98.1 F 05/31/24 04:07 Pulse 60 05/31/24 12:02 Resp 16 05/31/24 12:02 BP 110/51 L 05/31/24 12:02 Pulse Ox 96 05/31/24 11:18 Laboratory Results - last 24 hr 05/30/24 05/31/24 14:00 05:30 Hgb 10.9 L 9.5 L Hct 32.6 L 27.8 L Time Spent with Patient Time Spent with Patient: <25 minutes Time was spent: preparing to see the patient(eg.review tests), obtaining and/or reviewing separately otained hiistory, indepentently interpreting results and counseling the patient
--- NOTE | 2024-05-31 13:42 | W.PM.OP ---
Date of service: 05/31/24 Time of Service: 13:42 Operative Note Operative Note Refer to Anesthesia Record Procedure Description: PROCEDURES PERFORMED: 1. enteroscopy PREOPERATIVE DIAGNOSIS: Stoma hemorrhage POSTOPERATIVE DIAGNOSIS: Ileostomy ulcer SURGEON: Nav Webb MD INDICATION FOR PROCEDURE: the patient is a 88-year-old woman who has been having on and off stoma(patient calls this a colostomy) hemorrhage for years. Last week she had hemorrhage that required 6 units of blood. She was discharged home. This week she required 3 units of blood a couple of nights ago. She had a scope through her stoma last week at an outside hospital with reportedly no findings. She started bleeding again today at the bedside before discharge and so I decided to scope her. FINDINGS: 2-3 cm within the stoma, just above the fascia and extending to the edge of the fascia, there is a 1-2 cm mucosal tear/ulceration. It looks old. It is oozing blood from the edges. The tissue of the stoma is clearly ileum and is NOT colon mucosa. Thus this is an ileostomy, NOT a colostomy. (Patient reports that this is a colostomy) FOLLOW-UP: Recommend ileostomy revision SPECIMENS: None EBL: Minimal COMPLICATIONS: None QUALITY of prep: Excellent Procedure in detail: The patient gave written consent and was in agreement with the indications, the potential risks as well as the benefits of the procedure. They were taken to the endoscopy suite and kept supine. Anesthesia was not necessary. Digital rectal and visual examination was performed. There are 3 Vicryl stitches in the periphery of the stoma. This is not bleeding. I placed a lot of lubrication at the edge and then digitally examined the ostomy. It is notably quite tight. I then passed well?lubricated colonoscope into the stoma and immediately recognizable as the villi of small intestine. This is definitely an ileostomy. I performed enteroscopy beyond the fascial edge and everything was completely normal. There is no evidence of any blood anywhere. I then slowly withdrew the scope insufflating, and at that time noticed, laying flat along the edge of the fascia and up above the fascia, there is a longitudinal ulceration/mucosal tear that has an old?appearance to it. It is bleeding from the edges. This is the cause of her bleeding. The patient tolerated the procedure well and was taken to the PACU in hemodynamically stable condition. It is recommended that she undergo ileostomy revision.
--- NOTE | 2024-05-31 15:11 | CHAPLAIN ---
Annamarie was resting in bed when I visited. She was in the OR for one scoping procedure yesterday and is being taken back today for a second one. Annamarie said she's been in touch with her daughter and let her know what's going on, and her daughter in turn as called Annamarie's to let him know. Annamarie was very pleasant, and looking forward to having this procedure over with. I will continue to visit.
--- NOTE | 2024-05-31 18:08 | W.PM.PROGNOT ---
Date of Service Date of service: 05/31/24 Time of Service: 18:08 Assessment and Plan Assessment and plan (1) 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: Status: Acute Assessment and plan: 88-year-old woman who has an ileostomy?related ulceration/lesion in the couple centimeters leading up to her stoma. This is directly at the level of the fascial edge. This is what is bleeding. I do not see how she has much choice other than revising the ostomy. If we do not revise it, it is going to continue to bleed and in the last 2 weeks alone she has gotten 9 units of blood. Her ileostomy tracks at least 5-6 cm lateral to medial from the fascia to the skin. It is within this distance that the ulcer exist. I am going to keep the existing fascial defect and bring the ileostomy out at a new skin site and perform a [place]. I will use a wound VAC at the existing site. Overall plan: Ileostomy revision Subjective Subjective Interval history since last seen: I discussed with the patient at the bedside about revising her ileostomy. I think he needs to be done since she continues to bleed. She agrees. Exam Narrative Exam Narrative: Hemodynamically stable, alert and oriented x 3. Good insight and understanding. Objective Last Vital Signs Temp 99.7 F H 05/31/24 15:30 Pulse 63 05/31/24 15:32 Resp 16 05/31/24 15:30 BP 124/55 L 05/31/24 15:32 Pulse Ox 95 05/31/24 16:01 Laboratory Results - last 24 hr 05/31/24 05:30 Hgb 9.5 L Hct 27.8 L Time Spent with Patient Time Spent with Patient: 25-34 minutes Time was spent: preparing to see the patient(eg.review tests), obtaining and/or reviewing separately otained hiistory, ordering medications,tests, procedures, referring, communicating with other health summer child caregiver, indepentently interpreting results, counseling the patient and care coordination
[2024-05-31] MEDS: metroNIDAZOLE 500 MG/100 ML BAG 100 MG IVPB (18:53)
[2024-05-31] MEDS: Bupivacaine 0.25% Pres-Free 30 ML VIAL (20:04)
--- NOTE | 2024-05-31 20:22 | W.PM.OP ---
Date of service: 05/31/24 Time of Service: 20:22 Operative Note Operative Note Refer to Anesthesia Record Procedure Description: Procedures: 1. Small bowel resection 2. Ileostomy creation 3. Extensive lysis of adhesions Preoperative diagnosis: Ileostomy hemorrhage, ileal ulcer Postoperative diagnosis: Same Surgeon: Nav Webb Assist: Albert Mora Anesthesia: General Anesthesiologist: Aye Indication: 88-year-old woman, DNR/DNI, has been having bleeding from her ileostomy on and off for the last 5 or 6 years at least. In the last 2 weeks she is needed 9 units of blood transfused because of this bleeding. Up until a few hours ago no cause has been identified. I scoped her stoma and about 3-4 cm from the stoma opening was an ulceration/tear in the ileum mucosa that was bleeding from the edges. She has a large parastomal hernia. It seems that she will simply continue to bleed, as she has been for years now, without some sort of stoma revision. It was my opinion that resection of the bleeding ulcer was the best move. Findings: 5-6 cm of ileum were resected which included the stoma. I did not attempt to reduce or repair the parastomal hernia but did need to perform extensive lysis of adhesions to mobilize the remaining terminal ileum to a new location. A new ileostomy was created about 3 cm away from the old site but still within the parastomal hernia sac. The old site wound was closed in layers, and with interrupted nylon sutures in mattress fashion. Complications: None Estimated Blood Loss: 50cc Specimens removed: Small bowel resection/ileostomy Grafts or implants: No Procedure in detail: Written consent was obtained from the patient who was in agreement with the risks, the benefits and the indications for the procedure. The patient was taken to the operating suite and laid supine on the operating table with left arm tucked. General anesthesia was administered which was tolerated very well. Antibiotics were given. Next we prepped and draped the abdomen in sterile fashion. A timeout was performed. When we were all in agreement we began the procedure. In a circular fashion, I made an incision around the ileostomy. Using a combination of sharp and blunt dissection I freed up the ileostomy circumferentially out of the soft tissue. Care was taken not to injure any small bowel around it because she has a known, large, parastomal hernia. There were extensive adhesions within the hernia sac and I was not able to mobilize the terminal ileum and existing/now?mobilized ileostomy adequately to reach new site which was my operative plan. I did perform extensive sharp adhesiolysis as well as adhesiolysis with the cautery to gain mobilization, within the hernia sac, of my new terminal ileum. Next, I made a new skin hole defect about 3 cm below and a little bit medial to the existing ileostomy location/wound that had been at the level of the umbilicus. I was able to extract the terminal ileum through this defect. Next, I closed the wound from the old ileostomy. This was done in layers with Vicryl in the dermis. I then closed the entire wound with Prolene in mattress interrupted fashion. Next I turned my attention to creating a new ostomy. I performed a small bowel resection of the distal 6 cm of ileum including the resected skin around the old ileostomy. The resection included the ileum ulcer that I had found. I had a new, fresh, end of the ileum to create and Azeb a new ileostomy. I passed the small bowel resection off the table and verified that the ulcer was in the specimen, and it was there grossly. The new ileostomy was created in Azeb fashion. Hemostasis was excellent. There was a fair amount of venous engorgement in the mesentery of the small bowel but nothing out of the ordinary. All of that mesentery was controlled with the LigaSure. The patient tolerated the procedure well. A wound?VAC dressing was placed over top of the primary-closed wound. An ostomy appliance was placed over the new ileostomy. She was taken to the PACU in hemodynamically stable condition. The sponge, instrument and sharps count was correct x3 at the end of the procedure.
[2024-06-01] VITALS (43 sets, daily range): BP systolic 58–128; BP diastolic 43–83; PULSE 43–143; RESP 16–20; TEMP 36.5–37.3; O2SAT 92–99
[2024-06-01 07:07] LABS: HCT 30.9 % (36.0-46.0); HGB 10.3 g/dL (11.2-15.7)
--- NOTE | 2024-06-01 07:44 | W.PM.PROGNOT ---
Date of Service Date of service: 06/01/24 Time of Service: 08:30 Assessment and Plan Assessment and plan (1) 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: Status: Acute Assessment and plan: 88-year-old woman who is postop day 1 (12 hours) from ileostomy revision because of a bleeding stoma. Her stoma is functioning and she is doing great clinically. She has no complaints. She really wants to go home. Overall plan: Advance her diet to regular as tolerated Monitor ileostomy and wound site for any issues Out of bed and ambulate Remove central line Likely discharge home in the morning Subjective Subjective Interval history since last seen: Annamarie is doing great. Her surgery was only 12 hours ago. She has no pain. Her ileostomy is already working. She is wondering about going home. She is eating food at the bedside. Exam Narrative Exam Narrative: General: Nontoxic, comfortable and interactive Neuro: Alert and oriented x 3 Psych: Good mood and affect, good insight and understanding Abdomen: Soft, grossly nontender and nondistended. Her ileostomy is functioning. Her wound VAC has a clean and dry dressing present. Objective Last Vital Signs Temp 97.7 F 06/01/24 00:30 Pulse 60 06/01/24 00:30 Resp 18 06/01/24 00:30 BP 128/47 L 06/01/24 00:30 Pulse Ox 95 06/01/24 00:30 Laboratory Results - last 24 hr 06/01/24 05:45 Hgb 10.3 L Hct 30.9 L Time Spent with Patient Time Spent with Patient: <25 minutes Time was spent: preparing to see the patient(eg.review tests), indepentently interpreting results, counseling the patient and care coordination
[2024-06-01] MEDS: Magnesium Oxide 400 MG TAB PO (07:52)
[2024-06-01] MEDS: Metoprolol CR 50 MG TABCR PO (07:53)
[2024-06-01] MEDS: Gabapentin 300 MG CAP PO ×2 (07:53→21:18)
[2024-06-01] MEDS: Cholecalciferol (Vitamin D3) 1,000 UNIT TAB 5000 UNITS PO (07:53)
[2024-06-01] MEDS: Lactated Ringers 1,000 ML 30 ML IV (07:54)
--- NOTE | 2024-06-01 08:53 | CMPROGNOTE_ITS ---
Date of service: 06/01/24 Time of Service: 08:53 Care Management Progress Note Progress Note Text Progress Note Text: Annamarie was sitting in a chair watching TV when CM met with her. She is in the ICU as Med Surg status. She went down to the OR for an revision of her ileostomy yesterday. She says she feels great and wants to have her daughter pick her up. She is waiting to meet with Dr. Webb and get her discharge paperwork. CM reviewed with nursing. No [facility] services are anticipated. Discharge Potential Discharge Needs: PCP F/U Appt and Surgical F/U Appt Patient/Family Education Needs: Review discharge instructions, discuss Ask Me Three Transportation: Private vehicle Plan: Anticipate Annamarie will return home once medically cleared. She will be driven home via private vehicle by family. She will follow up with her PCP and discharge plan of care. CM will continue to follow. SDOH(Care Management) Screening Will the Patient Participate in the Screening?: Yes Do you worry about having a steady place to live?: no Problems where you live: no known problems In the past 12 months, have you had to go without electric, gas, oil or water in your home?: no Have you or anyone in your house had to go without enough food to eat?: no Has lack of transportation kept you from medical appointments or from doing things needed for daily living?: no Has anyone in your support network made you feel unsafe for any reason?: no Social Determinants of Health Comments(SDOH Details): pt reports that she and her know we need to downsize his hearing is no good , he can't hear me call for help. I don't have lifeline because we cant afford it
--- NOTE | 2024-06-01 12:04 | W.ANESPOSTOP ---
Postoperative Evaluation Date, Time and Location Date Performed: 06/01/24 Time Performed: 12:04 Patient Location: Intensive Care Unit Vital Signs Most Recent Imported Vital Signs: Most Recent Vital Signs Temp Pulse Resp BP Pulse Ox 36.8 C 43 L 16 126/83 96 06/01/24 11:57 06/01/24 11:57 06/01/24 11:57 06/01/24 11:57 06/01/24 11:57 Pain Score Most Recent Pain Score: Most Recent Pain Score Pain Level 0 06/01/24 08:02 Assessment Mental Status: Awake (Alert & Oriented to Patient Baseline) Airway and Respiratory Function: Patent airway with normal (patient baseline) respiratory exam Cardiovascular Function: Hemodynamically Stable Hydration Status: Adequately Hydrated Nausea & Vomiting: No Nausea or Vomiting Pain: Pain is tolerable per patient Peripheral Nerve Block: Patient did not receive a nerve block
--- NOTE | 2024-06-01 17:32 | CHAPLAIN ---
Annamarie was waiting to go home when I visited late this afternoon. She said her second procedure in the OR went well and she was looking forward to being home and keeping an eye on her as she's concerned that he doesn't drink enough, which causes him to pass out. Annamarie shared some personal history and talked about her family.
--- NOTE | 2024-06-01 20:45 | RT.EKG_ITS ---
APPROVED REPORT Exam: Resting ECG Reason for Exam: rapid heart rate Patient Location: I HR:133 bpm ECG Measurements Heart Rate 133 AXIS GA [id number] P [id number] QRSd 107 QRS -60 QT 329 T 89 QTc 490 Conclusion SVT Incomplete RBBB and LAFB...axis(240,-40), S>R II III aVF LVH with secondary repolarization abnormality...multi-LVH criteria, abnrm ST-T
[2024-06-01] MEDS: Metoprolol 5 MG/5 ML VIAL 2.5 MG IVP ×2 (21:19→22:03)
[2024-06-01] MEDS: Normal Saline Flush 10 ML SYR IVP (21:26)
[2024-06-01 21:54] LABS: HCT 31.3 % (36.0-46.0); HGB 10.4 g/dL (11.2-15.7)
[2024-06-01 22:10] LABS: Anion Gap 10.3 mmol/L (3-11); BUN 30 mg/dL (7-18); CO2 20.7 mmol/L (21.0-32.0); CREATININE 2.3 mg/dL (0.55-1.02); Calcium 8.9 mg/dL (8.5-10.1); Chloride 105 mmol/L (98-107); Estimated GFR 20.07 (mL/min/1.73m2); Glucose 216 mg/dL (74-106); Magnesium 1.6 mg/dL (1.8-2.4); Potassium 4.4 mmol/L (3.5-5.1); Sodium 136 mmol/L (136-145); Troponin I < 50 ng/L (< or =60)
[2024-06-01] MEDS: dilTIAZem 25 MG/5 ML VIAL 10 MG IVP (22:55)
--- NOTE | 2024-06-01 23:00 | RT.EKG_ITS ---
APPROVED REPORT Exam: Resting ECG Reason for Exam: Rythym change Patient Location: I HR:60 bpm ECG Measurements Heart Rate 60 AXIS MO 247 P 65 QRSd 130 QRS -50 QT 446 T 0 QTc 446 Conclusion Sinus rhythm...normal P axis, V-rate 50- 99 Prolonged MO interval...MO >220, V-rate 50- 90 RBBB and LAFB...QRSd >120mS, axis(-40,240) Probable left ventricular hypertrophy...(RaVL+SV3)xQRSd >300
[2024-06-01] MEDS: Lactated Ringers 500 ML IV (23:25)
[2024-06-01] MEDS: MAGNESIUM SULFATE 2 GM/50 ML BAG IVINF (23:30)
--- NOTE | 2024-06-01 23:34 | W.EVENT ---
Date of service: 06/01/24 Time of Service: 23:35 Event Note: Patient HR noted to be in the 130's to 140's this afternoon was brought to my attention this evening. Patient was asymptomatic w/ HR 120's to 130's, EKG w/ RBBB w/ supraventricular tachycardia vs atrial flutter. Computer reading junctional tachycardia with rate of 133 bpm but actual rate is 150 and appears to be atrial flutter probable 2:1 conduction. Labs obtained including repeat hemogram given her recent ostomy bleeding and surgical repair of same, repeat BMP and magnesium (had been low at 1.4 this morning but only received oral replacement) and troponin. Troponin I was negative, hemoglobin stable at 10.4 gm, BUN and creatinine slightly higher at 30 and 2.3, K ok at 4.4 and repeat Mg 1.6. Patient treated w/ lopressor 2.5 mg IVP x two doses w/ little effect (HR still in 120's), Mg replaced w/ 2 gm IVPB, BP low w/ systolic in the high 80's to low 90's and given LR x 500 mL and diltiazem 10 mg IVP which brought her HR down to 60 bpm atrial paced. Exam: alert and oriented, denies any CP or dyspnea, lungs clear, heart now regular w/ soft systolic murmur over 2nd RICS grade 3/6. A/P: Recurrent SVT likely atrial flutter at rate of 150 bpm likely brought on by recent stress of surgery and stomal bleeding, patient w/ known hx of PAF/atrial flutter. Consider addition of oral diltiazem vs increasing her daily Toprol XL. I will defer to day hospitalist. For now she has responded to iv diltiazem and feels fine. Will monitor, telemetry resumed. recheck labs in the morning. Time Spent with Patient Time spent in critical care(minutes): 45 Time Spent Included: Coordination of care, Chart review, Documenting critically ill care and Time at immediate bedside (15 minutes time at bedside, rest of time in multiple discussion w/ nurse, putting in orders, reviewing serial EKG and labs approx. 30 minutes)
[2024-06-02] VITALS (75 sets, daily range): BP systolic 83–122; BP diastolic 38–86; PULSE 58–137; RESP 18; TEMP 36.6; O2SAT 92–100
[2024-06-02 07:02] LABS: Abs Immature Grans 0.06 10^3/uL (0.0-0.06); Absolute Basophil Count 0.01 10^3/uL (0.0-0.2); Absolute Eosinophil Count 0.01 10^3/uL (0.0-0.7); Absolute Lymphocyte Count 0.77 10^3/uL (1.2-3.4); Absolute Monocyte Count 0.41 10^3/uL (0.1-0.8); Absolute Neutrophil Count 6.45 10^3/uL (1.2-6.7); Basophils % 0.1 %; Eosinophils % 0.1 %; HGB 8.7 g/dL (11.2-15.7); Immature Grans % 0.8 %; MCH 30.2 pg (27.0-33.0); MCHC 33.5 % (32.0-36.0); MCV 90 fL (80-95); MPV 9.7 fL (8.0-11.0); Monocytes % 5.3 %; Neutrophils % 83.7 %; RBC 2.88 10^6/uL (3.93-5.22); RDW 16.2 % (11.7-14.6); RDW-SD 52.7 fL; WBC 7.71 10^3/uL (4.4-10.8)
[2024-06-02 07:20] LABS: Anion Gap 8.1 mmol/L (3-11); BUN 31 mg/dL (7-18); CO2 22.9 mmol/L (21.0-32.0); CREATININE 2.1 mg/dL (0.55-1.02); Calcium 9.1 mg/dL (8.5-10.1); Chloride 108 mmol/L (98-107); Estimated GFR 22.38 (mL/min/1.73m2); Glucose 169 mg/dL (74-106); Potassium 4.3 mmol/L (3.5-5.1); Sodium 139 mmol/L (136-145)
[2024-06-02 07:27] LABS: Diff Comment Diff Reviewed; Platelet Count 81 10^3/uL (130-400)
[2024-06-02 07:28] LABS: Hypochromasia 2+; Polychromasia Present
--- NOTE | 2024-06-02 08:42 | W.PM.PROGNOT ---
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 She is hemodynamically stable and doing well. Unclear what exactly we should do about her paroxysmal arrhythmias. I agree with the medical team to try some oral rate control medication and see how she tolerates it. It certainly in her interest for us to get her home as soon as possible since each day in the hospital will make her more debilitated. She is on a regular diet and otherwise doing great. Will try to get her discharged home tomorrow as long as she is tolerating the new oral medications. Overall plan for today: Ambulation and being out of bed Ensure no orthostatic hypotension while ambulatory with the new medication. Hopeful discharge home tomorrow Subjective Subjective Interval history since last seen: Patient is doing great from a surgical standpoint. Overnight had rapid heart rate in the 150s again with a low blood pressure associated. Patient says she had no symptoms. Medical team has started her on oral diltiazem today. Exam Narrative Exam Narrative: General: Nontoxic, comfortable and interactive. Good energy. Neuro: Alert and oriented x 3 Psych: Good mood and affect, good insight and understanding into her condition Abdomen: Soft, nondistended and nontender. Her ileostomy is working great. It is pink and productive. Her dressing is stained but completely dry and intact. Objective Last Vital Signs Temp 97.9 F 06/02/24 00:39 Pulse 60 06/02/24 07:58 Resp 18 06/02/24 00:39 BP 98/46 L 06/02/24 07:01 Pulse Ox 95 06/02/24 07:20 Laboratory Results - last 24 hr 06/01/24 06/02/24 06/02/24 21:45 05:45 05:45 WBC 7.71 RBC 2.88 L Hgb 10.4 L 8.7 L Hct 31.3 L 26.0 L MCV 90 MCH 30.2 MCHC 33.5 RDW 16.2 H Plt Count 81 L MPV 9.7 Immature Gran % 0.8 Neutrophils % 83.7 Lymphocytes % 10.0 Monocytes % 5.3 Eosinophils % 0.1 Basophils % 0.1 Nucleated RBC % 0.0 Absolute Neutrophils 6.45 Absolute Lymphocytes 0.77 L Absolute Monocytes 0.41 Absolute Eosinophils 0.01 Absolute Basophils 0.01 RBC Morphology See Below Polychromasia Present Hypochromasia 2+ Sodium 136 139 Potassium 4.4 4.3 Chloride 105 108 H Carbon Dioxide 20.7 L 22.9 Anion Gap 10.3 8.1 BUN 30 H 31 H Creatinine 2.3 H 2.1 H Est GFR (CKD-EPI 2020) 20.07 22.38 Glucose 216 H 169 H Calcium 8.9 9.1 Magnesium 1.6 L Cancelled 2.0 Troponin I < 50 Time Spent with Patient Time Spent with Patient: 25-34 minutes Time was spent: preparing to see the patient(eg.review tests), obtaining and/or reviewing separately otained hiistory, referring, communicating with other health resident care provider, indepentently interpreting results, counseling the patient and care coordination
[2024-06-02] MEDS: Magnesium Oxide 400 MG TAB PO (08:56)
[2024-06-02] MEDS: Cholecalciferol (Vitamin D3) 1,000 UNIT TAB 5000 UNITS PO (08:56)
[2024-06-02] MEDS: Metoprolol CR 50 MG TABCR PO (08:56)
[2024-06-02] MEDS: Gabapentin 300 MG CAP PO ×2 (08:57→19:40)
[2024-06-02] MEDS: dilTIAZem 30 MG TAB PO ×3 (09:21→19:40)
--- NOTE | 2024-06-02 11:47 | PGE_ITS ---
Date of Service Date of service: 06/02/24 Time of Service: 11:50 Assessment and Plan Assessment and plan (1) PSVT (paroxysmal supraventricular tachycardia): Status: Acute Assessment and plan: - Episodes last night and this morning c/w PSVT, possibly flutter. She doesn't report symptoms, but BP does drop. She seemed to respond better to diltiazem than additional metoprolol last night, I added oral dilt. She has a pacemaker so heart block is not a concern. I'd like to watch her blood pressure and symptoms to make sure she tolerates this before transitioning to long acting oral diltiazem for discharge. (2) Chronic atrial fibrillation with RVR: Status: Acute Assessment and plan: - Upon initial presentation patient was in A-fib RVR -This was likely secondary to hemorrhagic shock, and improved after patient received first 2 units of packed red blood cells -She has pacemaker in place and has been restarted on her home Toprol-XL 50 mg daily -see above, rate well controlled (paced) when she isn't in PSVT. 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 Stable from surgical perspective. (4) Hemorrhagic shock: Status: Acute Assessment and plan: Status post total 3 units packed red blood cells -stable post operatively, hgb a little lower today but no bleeding clinically. Follow. Subjective Subjective Patient reports: no new complaints; denies nausea, vomiting, shortness of breath or fever Interval history since last seen: 24: medicine called overnight, HR noted 130-150 and BP low on routine vitals, EKG showed regular SVT, aflutter? Treated with IV metoprolol 5mg x 2, then 10mg diltiazem, converted back to sinus Recurred briefly this am at 9:49am, HR 129, resolved with valsalva Annamarie feels fine. She is eating and drinking. Would like to go home. No blood in ostomy bag. No chest pain, not dizzy. Exam Narrative Exam Narrative: Older female laying in bed in no acute distress, alert and oriented, heart regular, rate at 60, lungs clear to auscultation bilaterally, abdomen soft, nontender, nondistended with ostomy having liquid output and no visible blood. Ext: non-tender, no edema. Objective Last Vital Signs Temp 36.6 C 06/02/24 00:39 Pulse 60 06/02/24 09:24 Resp 18 06/02/24 00:39 BP 104/59 L 06/02/24 09:24 Pulse Ox 99 06/02/24 09:24 Laboratory Results - last 24 hr 06/01/24 06/02/24 06/02/24 21:45 05:45 05:45 WBC 7.71 RBC 2.88 L Hgb 10.4 L 8.7 L Hct 31.3 L 26.0 L MCV 90 MCH 30.2 MCHC 33.5 RDW 16.2 H Plt Count 81 L MPV 9.7 Immature Gran % 0.8 Neutrophils % 83.7 Lymphocytes % 10.0 Monocytes % 5.3 Eosinophils % 0.1 Basophils % 0.1 Nucleated RBC % 0.0 Absolute Neutrophils 6.45 Absolute Lymphocytes 0.77 L Absolute Monocytes 0.41 Absolute Eosinophils 0.01 Absolute Basophils 0.01 RBC Morphology See Below Polychromasia Present Hypochromasia 2+ Sodium 136 139 Potassium 4.4 4.3 Chloride 105 108 H Carbon Dioxide 20.7 L 22.9 Anion Gap 10.3 8.1 BUN 30 H 31 H Creatinine 2.3 H 2.1 H Est GFR (CKD-EPI 2020) 20.07 22.38 Glucose 216 H 169 H Calcium 8.9 9.1 Magnesium 1.6 L Cancelled 2.0 Troponin I < 50 Time Spent with Patient Time Spent with Patient: 35-49 minutes Time was spent: preparing to see the patient(eg.review tests), obtaining and/or reviewing separately otained hiistory, ordering medications,tests, procedures, referring, communicating with other health professional healthcare representative, indepentently interpreting results, counseling the patient and care coordination
[2024-06-02] MEDS: Heparin 5,000 UNITS/ML VIAL 5000 UNITS SC (19:07)
[2024-06-02] MEDS: Normal Saline Flush 10 ML SYR IVP (19:41)
[2024-06-03] VITALS (19 sets, daily range): BP systolic 84–117; BP diastolic 43–68; PULSE 59–97; TEMP 36.9
[2024-06-03 05:38] LABS: HCT 28.5 % (36.0-46.0); MCH 30.3 pg (27.0-33.0); MCHC 33.3 % (32.0-36.0); MCV 91 fL (80-95); MPV 9.6 fL (8.0-11.0); RBC 3.14 10^6/uL (3.93-5.22); RDW 16.5 % (11.7-14.6); RDW-SD 54.7 fL; WBC 7.84 10^3/uL (4.4-10.8)
[2024-06-03 06:07] LABS: HGB 9.5 g/dL (11.2-15.7); Platelet Count 93 10^3/uL (130-400)
[2024-06-03 06:19] LABS: Vitamin B12 565 pg/mL (193-986)
[2024-06-03] MEDS: Heparin 5,000 UNITS/ML VIAL 5000 UNITS SC (06:31)
[2024-06-03] MEDS: Magnesium Oxide 400 MG TAB PO (08:17)
[2024-06-03] MEDS: Gabapentin 300 MG CAP PO (08:17)
[2024-06-03] MEDS: Cholecalciferol (Vitamin D3) 1,000 UNIT TAB 5000 UNITS PO (08:17)
[2024-06-03] MEDS: dilTIAZem CD 120 MG CAPCR PO (08:19)
[2024-06-03 09:02] LABS: HCT 30.4 % (36.0-46.0); HGB 10.1 g/dL (11.2-15.7)
--- NOTE | 2024-06-03 09:57 | W.PM.PROGNOT ---
Objective Last Vital Signs Temp 97.9 F 06/02/24 00:39 Pulse 59 L 06/03/24 09:30 Resp 18 06/02/24 00:39 BP 114/46 L 06/03/24 09:30 Pulse Ox 100 06/02/24 13:01 Laboratory Results - last 24 hr 06/03/24 06/03/24 06/03/24 05:20 05:25 08:48 WBC 7.84 RBC 3.14 L Hgb 9.5 L 10.1 L Hct 28.5 L 30.4 L MCV 91 MCH 30.3 MCHC 33.3 RDW 16.5 H Plt Count 93 L MPV 9.6 Vitamin B12 565
[2024-06-03] MEDS: Nystatin POWDER 60 GM JAR TP (10:46)
[2024-06-03] MEDS: Metoprolol CR 50 MG TABCR 25 MG PO (12:12)
--- NOTE | 2024-06-03 12:47 | W.PM.PROGNOT ---
Date of Service Date of service: 06/03/24 Time of Service: 12:47 Assessment and Plan Assessment and plan (1) PSVT (paroxysmal supraventricular tachycardia): Status: Acute Assessment and plan: - Episodes overnight 06/01 to 06/02 c/w PSVT, possibly flutter. She doesn't report symptoms, but BP does drop. She seemed to respond better to diltiazem than additional metoprolol. With unclear diagnosis adeonsine was not attempted, though she seems to have responded to valsalva on later episode. -She is tolerating 30mg TID of dilt, though BP on low end of normal. She has a pacemaker so heart block is not a concern. -Will cut metoprolol to 25mg and discharge on 120mg long acting dilt (this is the lowest dose avaiable, given this morning) -Okay to discharge -Follow up with PCP within a week, consider cardiology consult. (2) Chronic atrial fibrillation with RVR: Status: Acute Assessment and plan: - Upon initial presentation patient was felt to be in A-fib RVR -This was likely secondary to hemorrhagic shock, and improved after patient received first 2 units of packed red blood cells -She has pacemaker in place. See above re: paroxysms of tachycardia. 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 Stable from surgical perspective. (4) Hemorrhagic shock: Status: Acute Assessment and plan: Status post total 3 units packed red blood cells, shock resolved, no ongoing bleeding. -stable post operatively, hgb a little lower today but no bleeding clinically. Follow. (5) Cirrhosis: Assessment and plan: This has been present on previous imaging. This is the cause for thrombocytopenia. Follow up as outpatient. (6) Stage 4 chronic kidney disease: Assessment and plan: has been stable, follow up outpatient. Subjective Subjective Patient reports: feels better and tolerating a regular diet; denies nausea, vomiting, shortness of breath or fever Interval history since last seen: Events: diltiazem started 06/02. No persistent tachycardia overnight. She is feeling better, was able to walk without feeling dizzy. Exam Narrative Exam Narrative: Older female laying in bed in no acute distress, alert and oriented, heart regular, rate at 60, lungs clear to auscultation bilaterally, abdomen soft, nontender, nondistended with ostomy having liquid output and no visible blood. Ext: non-tender, no edema. Objective Last Vital Signs Temp 36.9 C 06/03/24 08:30 Pulse 59 L 06/03/24 10:51 Resp 18 06/02/24 00:39 BP 108/54 L 06/03/24 10:51 Pulse Ox 100 06/02/24 13:01 Laboratory Results - last 24 hr 06/03/24 06/03/24 06/03/24 05:20 05:25 08:48 WBC 7.84 RBC 3.14 L Hgb 9.5 L 10.1 L Hct 28.5 L 30.4 L MCV 91 MCH 30.3 MCHC 33.3 RDW 16.5 H Plt Count 93 L MPV 9.6 Vitamin B12 565 Time Spent with Patient Time Spent with Patient: >50 minutes Time was spent: preparing to see the patient(eg.review tests), obtaining and/or reviewing separately otained hiistory, ordering medications,tests, procedures, referring, communicating with other health transitions rn care coordinator, indepentently interpreting results, counseling the patient and care coordination
--- NOTE | 2024-06-03 13:28 | PDOC.DSDIS_ITS ---
Date of service: 06/03/24 Time of Service: 13:28 Discharge Plan Disposition Patient Disposition: Home Condition: Good Discharge Details Reason For Visit: GI bleeding Admit Date/Time: 05/29/24 20:26 Admit Provider: Efren Webb Attending Provider: Efren Webb Primary Care Provider: Dede Miller Hospital Course Hospital Course: Surgical Management: Patient presented to ER with hypovolemia shock and arrhythmia. Was resuscitated in the ER with a central line and blood products. She recovered very quickly. She has been dealing with ileostomy hemorrhage for years. She was monitored for couple of days in the ICU and then we did another colonoscopy and found an ulcer at the end of her ostomy. I then recommended a revision of her ostomy and this was done in the operating room. She has a large parastomal hernia and that was NOT repaired or manipulated. In the postoperative timeframe, she did great. Her ostomy was working on postop day 1 and she was having no difficulty with pain or any other issue. She did have arrhythmia issues on the monitor and for this reason was kept in the hospital for a few extra days. Once stabilized, the medical team cleared her for discharge home. She will have short?term/close follow-up in the surgery office to ensure her wounds are healing nicely. Her Prolene stitches should stay in place and not be removed for at least a thu. Medical Consult Management: The patient has a history of chronic atrial fibrillation as well as PSVTs. She has a pacer and her baseline rhythm is atrial paced. She was given her home metoprolol succinate. Overnight 06/01-06/02 she had an episode of tachycardia, possibly atrial flutter, associated with low blood pressure, though she had minimal symptoms. She did not respond to two metoprolol boluses of 2.5mg but did convert after 10mg diltiazem. Adenosine was not attempted. Given this, she was started on diltiazem and transitioned to long acting before discharge. Because her blood pressures run low, metoprolol was decreased to 25mg from 50mg. Of note she had shorter bursts of regular tachycardia that responded to valsalva, though she did not have these overnight before discharge. She will need close outpatient follow up with consideration for cardiology consult. The patient's platelets were noted to be low, which has been chronic since at least 2020. She also has a low albumin. Fibrosis-4 score is >6, indicating a high probability of advanced liver fibrosis/cirrhosis. Review of the CT abdomen on 05/23/24 did show liver nodularity, possibly cirrhosis. CT from 04/24/23 also showed cirrhotic liver. This should be confirmed with elastography and evaluated/monitored appropriately. Murmur was noted. She does have moderate aortic stenosis last documented on 04/21 echocardiogram. This should be followed as an outpatient. Home Meds and New Rx's Prescriptions: New diltiazem HCl 120 mg Capsule,Extended Release 24hr 120 mg PO DAILY Qty: 30 0RF Continued cholecalciferol (vitamin D3) 125 mcg (5,000 unit) capsule 125 mcg PO DAILY gabapentin 600 MG tablet 600 mg PO BID magnesium 250 mg tablet 250 mg PO DAILY Qty: 20 0RF metoprolol succinate 50 mg tablet extended release 24 hr 50 mg PO DAILY Discharge Instructions Additional Instructions: Incision: The dressing can be removed in the surgery office on Thursday or Thursday. Call and schedule an appointment. Activity: As tolerated. There are no restrictions. Diet: Regular diet as tolerated Medications: Resume all of your usual/regular home medications Follow-up: - Call the surgery office for a follow-up appointment to be seen next week. - You also need to see your cardiology doctor and your primary care doctor. Activity:: Activity as Tolerated Equipment/Supplies:: No Equipment Needed Diet:: As Tolerated DS: Diagnosis Discharge Diagnosis (1) PSVT (paroxysmal supraventricular tachycardia): Status: Acute (2) Chronic atrial fibrillation with RVR: Status: Acute (3) 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: Status: Acute Asessment and Plan: 88-year-old woman postop day 3 from ileostomy revision. She is doing great. She is hemodynamically stable. Having good bowel function. No pain. No bleeding. Her heart rate issues have not been an issue in the last 24 hours and the medical service is okay with her being discharged. They have recommended her to have close follow-up in the outpatient setting with her restaurant hospitality manager and PCP. I recommended that she have follow-up in the surgery office next week to make sure everything is going along smoothly. (4) Hemorrhagic shock: Status: Acute (5) Cirrhosis: (6) Stage 4 chronic kidney disease:
--- NOTE | 2024-06-03 13:51 | PDOC.CMDIS ---
Date of service: 06/03/24 Time of Service: 13:51 LACE Index Scoring Tool Questions: Length of Stay (in days): 4 - 6 Was the patient admitted via the E.D.?: Yes E.D. Visits: 2 Answers: Total Score: 9 Risk of Readmission: Low Risk Care Management Discharge Plan Reason for Hospitalization: GI Bleeding Discharge Plan: Annamarie will return home with no new services. Her daughter will drive her home via private vehicle. She will follow up with her PCP and her discharge plan of care. She is happy to be going home. Patient/Family Education Needs: Review discharge instructions and limitations, discussion of self care needs including ask me three. SDOH Health Related Social Needs: No Data to Display
== END 2024-06-03 15:30 | disposition home or self-care (01) | DRG 329 ==
LOC: ER 19:21 → ICU 05-30 10:24
PROVIDERS: Family Medicine; Internal Medicine; Admitting Provider Student in an Organized Health Care Education/Training Program; Emergency Provider Emergency Medicine; PCP Legal Medicine; Visit Provider Student in an Organized Health Care Education/Training Program
PROC: 0DJD8ZZ Inspection of Lower Intestinal Tract, Via Natural or Artificial Opening Endoscopic (ICD-10-PCS; CPT 45378; principal; 2024-05-31 12:15)
PROC: 0DJ08ZZ Inspection of Upper Intestinal Tract, Via Natural or Artificial Opening Endoscopic (ICD-10-PCS; CPT 44320; principal; 2024-05-31 16:30)
DX: K94.11 Enterostomy hemorrhage (principal); R57.8 Other shock; I47.10 Supraventricular tachycardia, unspecified; N18.4 Chronic kidney disease, stage 4 (severe); D62 Acute posthemorrhagic anemia; I48.20 Chronic atrial fibrillation, unspecified; I48.92 Unspecified atrial flutter; K74.60 Unspecified cirrhosis of liver; E78.00 Pure hypercholesterolemia, unspecified; E83.42 Hypomagnesemia; K75.81 Nonalcoholic steatohepatitis (NASH); I45.10 Unspecified right bundle-branch block; I12.9 Hypertensive chronic kidney disease with stage 1 through stage 4 chronic kidney disease, or unspecified chronic kidney disease; D69.59 Other secondary thrombocytopenia; K94.19 Other complications of enterostomy; Y83.8 Other surgical procedures as the cause of abnormal reaction of the patient, or of later complication, without mention of misadventure at the time of the procedure; Y73.2 Prosthetic and other implants, materials and accessory gastroenterology and urology devices associated with adverse incidents; K43.5 Parastomal hernia without obstruction or gangrene; Z66 Do not resuscitate; Z95.0 Presence of cardiac pacemaker; Z85.3 Personal history of malignant neoplasm of breast
CPT/HCPCS: 44388; 44125; 00123; 36415; 36430; 36556; 51702; 71045; 80048; 80053; 85027; 86850; 86900; 86901; 86920; 93005; 96361; 96374; 99222; 99231; 99291; 82607; 83735; 84100; 84484; 85014; 85018; 85025; 85610; 85730; 86870; 86902; 93010; 99232; 99233; J0665; J1100; J1644; J1836; J2001; J2371; J2405; J2704; J3475; P9016; P9059

== ENCOUNTER → 2024-06-07 12:54 | Outpatient (BNVA) | payer MEDICARE, BC, SELFPAY | PROVIDERS: PCP Legal Medicine; Referring Provider Legal Medicine; Visit Provider Physical Therapy Assistant | DX: Z48.815 Encounter for surgical aftercare following surgery on the digestive system (principal) ==

== ENCOUNTER → 2024-06-15 14:22 | Outpatient (BNVA) | payer MEDICARE, BC, SELFPAY | PROVIDERS: PCP Legal Medicine; Referring Provider Legal Medicine; Visit Provider Physical Therapy Assistant | DX: Z48.815 Encounter for surgical aftercare following surgery on the digestive system (principal) ==

== ENCOUNTER → 2024-06-22 12:39 | Outpatient (BNVA) | payer MEDICARE, BC, SELFPAY | PROVIDERS: PCP Legal Medicine; Referring Provider Legal Medicine; Visit Provider Physical Therapy Assistant | DX: Z48.815 Encounter for surgical aftercare following surgery on the digestive system (principal) ==

== ENCOUNTER → 2024-07-07 12:52 | Outpatient (BNVA) | payer MEDICARE, BC, SELFPAY | PROVIDERS: PCP Legal Medicine; Referring Provider Legal Medicine; Visit Provider Physical Therapy Assistant | DX: Z48.815 Encounter for surgical aftercare following surgery on the digestive system (principal); Z48.02 Encounter for removal of sutures ==

== ENCOUNTER 2024-07-12 14:14 | Emergency (ER) | payer MEDICARE, BC, SELFPAY ==
[2024-07-12] VITALS (113 sets, daily range): BP systolic 73–145; BP diastolic 31–113; PULSE 55–141; RESP 10–24; TEMP 36.6–37; O2SAT 92–100
--- NOTE | 2024-07-12 14:15 | RT.EKG_ITS ---
APPROVED REPORT Exam: Resting ECG Reason for Exam: Abdominal pain Patient Location: E HR:66 bpm ECG Measurements Heart Rate 66 AXIS RI 160 P 58 QRSd 114 QRS -55 QT 432 T 61 QTc 448 Conclusion Sinus rhythm...normal P axis, V-rate 60- 99 Atrial premature complex...SV complex w/ short R-R interval Incomplete RBBB and LAFB...axis(240,-40), S>R II III aVF Probable left ventricular hypertrophy...multiple LVH criteria Sinus rhythm at a rate of 66. Left axis deviation right bundle branch block?bifascicular block. No ST segment abnormalities. No T wave versions. No acute injury pattern.
--- NOTE | 2024-07-12 14:25 | ED.GENADUL_ITS ---
Discharge Plan Disposition Patient Disposition: Admit to [facility] Discharge Details Clinical Impression: ABBIE (acute kidney injury), Myocardial injury, Intraabdominal fluid collection, Effusion, pericardium Primary Care Provider: Dede Miller ED Provider: Edwin Rangel Home Meds and New Rx's Prescriptions: No Action cholecalciferol (vitamin D3) 125 mcg (5,000 unit) capsule 125 mcg PO DAILY gabapentin 600 MG tablet 600 mg PO BID magnesium 250 mg tablet 250 mg PO DAILY Qty: 20 0RF diltiazem HCl 120 mg Capsule,Extended Release 24hr 120 mg PO DAILY Qty: 30 0RF metoprolol succinate 50 mg tablet extended release 24 hr 50 mg PO DAILY Discharge Data Discharge Date/Time-TO BE ENTERED AT DEPARTURE: 07/12/24 17:34 HPI General Date/Time Provider Initiated Documentation: 07/12/24 14:24 . HPI Narrative: MDM Broad differential of this 88-year-old normothermic and not tachycardic female with intermittent dizziness and abdominal pain. Certainly given reported bloody output from ostomy she could be anemic though she has a reassuring shock index will send type and screen. No pain out of proportion to suggest necrotizing soft tissue infection. Intra-abdominal infection certainly a possibility so we will obtain cross-sectional imaging of her abdomen. She is not short of breath however given recent surgery will send a D-dimer use a cutoff of 1000 to assess risk for PE. She is not having any active dizziness and she is neurologically intact with no nystagmus so I did not apply the hints exam as I was not suspicious of posterior circulation CVA. No recent chiropractic manipulation nor headache to suggest cervical arterial dissection. No rash to abdomen to suggest zoster. No head strike to suggest increased risk for intracranial hemorrhage I did not feel that the patient required a CT scan of her head. Patient has not been vomiting so my suspicion for small bowel obstruction is low. No fevers no cough to suggest pneumonia so I did not obtain chest x-ray. 4:40 PM CBC shows marked leukocytosis but no anemia. No thrombocytopenia. D-dimer markedly elevated at 6000 approximately. Comprehensive metabolic panel showing mild hyperglycemia and decreased bicarbonate and elevated anion gap. Patient is not a diabetic so euglycemic DKA is low. She does have a marked ABBIE. Will provide her 1 L of IV fluids. She is making troponin. Given the absence of chest pain my suspicion is low for myocardial infarction and suspect that this represents myocardial injury. Will defer CT angiogram of her chest. Patient does have a history of paroxysmal SVT. She became tachycardic in the ED. Repeat ECG shows heart rate of 134 bpm. Will provide her with additional liter of IV fluids. Per echo results from last year her EF is normal. Will also provide her with her daily metoprolol succinate 50 mg. Will also provide her with 2 g of magnesium. With her tachycardia into the 130s patient remains asymptomatic. 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 She has no obvious P waves. Rhythm differential is SVT versus atrial flutter. She has not been adherent with her outpatient diltiazem. Will dose her oral metoprolol and give her 10 mg IV diltiazem push and total of 2 L IV fluids. In comparing her current ECG to her prior ECG from June 01, 2024 the rate is similar. She does however have a new T wave inversions in V3. Patient confirms DNI DNR. 5:30 PM I ordered an Acuña to be placed to accurately assess I's and O's. On CT scan patient had a large abnormal fluid collection in the abdomen measuring approximately 12 x 12 x 16 suspicious for abscess. I ordered blood cultures piperacillin/tazobactam lactate. Will consult general surgery. 6:15 PM Midline being placed currently. I was in touch with Dr. Hamilton for the general surgery team who was at bedside to assess the patient. Patient's repeat troponin had improved. She is not a paced rhythm with rates in the 60s. Map remains roughly 65. Will order repeat BMP and H&H status post first liter. 6:50 PM I spoke with Dr. Hamilton who is planning on taking the patient to the OR. Will optimize resuscitation first and complete 2 L of IV fluids with repeat labs. Will also monitor I's and O's via Acuña catheter. Dr. Hamilton requests hospitalist consult. Will reach out to on coming evening hospitalist. 7:05 PM I spoke with Dr. Gomes from the medical team who will complete a consult on this patient to facilitate her management on the general surgery service. 7:38 PM I spoke with Corby the PICC nurse was able to gain IV access. He was unable to obtain IV access on the left side. He obtained consent from the patient to place a right upper extremity midline. Please see separate note for details. Patient had had a mastectomy on the side greater than 30 years ago. Given the benefits of IV access compared to the risks of no access I felt that this was an acceptable trade off given remote mastectomy and difficult IV access. 8:36 PM I [place] Dozier [place] [facility] [place] the [place]. Will wait for bed placement to call. General surgery at [facility], Dr. Hamilton will update patient's family as she has already been in touch with them. 10:11 PM Patient received 10 mg of diltiazem and her heart rate improved now she is in a paced rhythm rates in the 60s. MAP 86. On POCUS she had a flat IVC site ordered. Additional 500 cc crystalloid for total of 2.5 L. In the 4 hours that her catheter has been placed she has been making approximately 1.5 cc/kg/h of urine. Her EF appears normal. She does not have signs of volume overload on POCUS. Patient had a midline in place at the time of transfer. US Guided Peripheral IV Procedure Note Indication: Difficult IV access Peripheral Prep: Skin prep: Alcohol prep. Prep agent: Prep was allowed to dry for 30 seconds. Sterility: Gloves. Insertion: Appropriate procedural pause was taken. Ultrasound guided 20-gauge catheter was placed under real-time guidance in the patient's left cephalic vein of the forearm. Post Procedure: Estimated blood loss: Minimal Complications: None Ultrasound IV confirmed by bubble study. Chronic conditions affecting the care of the patient: Ostomy History obtained from an outside historian: N/A External record review: N/A Diagnostic interpretations performed by me: Per my independent interpretation chest x-ray shows: Per my independent interpretation EKG shows: Sinus rhythm at a rate of 66. Left axis deviation right bundle branch block??bifascicular block. No ST segment abnormalities. No T wave versions. No acute injury pattern. ]Medications: Motor cc crystalloid Social determinants of health affecting disposition: N/A Management discussed with: General Surgery Treatment/interventions considered: N/A Response to therapies provided: Improved symptoms in the ED HPI This is an 88-year-old female ~ 6 weeks sp ileostomy revision (ostomy resection and relocation) arriving to the emergency department via private vehicle in setting of abdominal pain and dizziness. Patient notes that she has intermittently been dizzy over the past several weeks. She is intermittently had some bloody output from her ostomy bag. She has had decreased appetite and she notes that she is only urinated once per day over the past several days. She has however been changing her ostomy bag more frequently since her surgery changing it every 1 and half to 2 hours. She denies any chest pain shortness of breath history of PE DVT. She has had no recent fevers diarrhea. She has been nauseous and really vomited. She takes no anticoagulation. She denies headache. She denies any recent falls. She denies routine tobacco ethanol and illicits. Exam General: Chronically ill-appearing in no acute distress speaking in complete sentences. Head: Normocephalic, atraumatic. Eye: Extraocular eye movements intact. No conjunctival injection. No scleral icterus. Ear, nose, mouth, throat: Grossly normal inspection. Normal voice, handling secretions normally. Neck: Trachea midline. Cardiovascular: Well-perfused distal extremities. Systolic ejection murmur regular rate Respiratory: Nonlabored respiration. Clear lungs bilaterally Gastrointestinal: On the right side of the abdomen there is an ostomy placed that appears pink and healthy. Patient has diffuse mild abdominal tenderness. No rebound. No guarding. Surgical scars appear to be healing well. Musculoskeletal: No edema. Moving all 4 extremities spontaneously. Skin: Normal for age and race, grossly normal temperature and turgor. No acute rash. Neurologic: Alert and appropriate, no apparent acute deficits. Psychiatric: Mood and manner are appropriate. Grooming and personal hygiene are appropriate. Related Data Home Medications ?Medication ?Instructions ?Recorded ?Confirmed gabapentin 600 mg tablet 600 mg PO BID 09/16/16 07/12/24 magnesium 250 mg tablet 250 mg PO DAILY #20 tabs 06/04/23 07/12/24 cholecalciferol (vitamin D3) 125 125 mcg PO DAILY 06/11/23 07/12/24 mcg (5,000 unit) capsule metoprolol succinate 50 mg 50 mg PO DAILY 05/21/24 07/12/24 tablet,extended release 24 hr diltiazem HCl 120 mg 120 mg PO DAILY #30 caps 06/03/24 07/12/24 capsule,extended release 24 hr Previous Rx's ?Medication ?Instructions ?Recorded magnesium 250 mg tablet 250 mg PO DAILY #20 tabs 06/04/23 diltiazem HCl 120 mg 120 mg PO DAILY #30 caps 06/03/24 capsule,extended release 24 hr Allergies Allergy/AdvReac Type Severity Reaction Status Date / Time No Known Allergies Allergy Unverified 07/12/24 16:42 General Stated Complaint: Abd Prob LETI: 3 Course Vital Signs Vital signs: Vital Signs Temperature 36.6 C 07/12/24 14:19 Pulse 75 07/12/24 14:19 Respiratory Rate 18 07/12/24 14:19 Blood Pressure 116/39 L 07/12/24 14:19 Pulse Oximetry 98 07/12/24 14:19 Temperature 36.6 C 07/12/24 14:19 Pulse 75 07/12/24 14:19 Respiratory Rate 18 07/12/24 14:19 Blood Pressure 116/39 L 07/12/24 14:19 Pulse Oximetry 98 07/12/24 14:19 Oxygen Delivery Method Room Air 07/12/24 14:19 Oxygen Flow Rate 0 07/12/24 14:19 Medical Decision Making Quality:SDOH Health Related Social Needs: No Data to Display Critical Care Time Critical Care Time Critical Care Time: Yes Total Critical Care Time: 45 Attestation: Tachycardia hypotension PFSH All Active Problems (Updated 07/12/24 @ 19:39 by Edwin Rangel MD) Effusion, pericardium (Acute) Intraabdominal fluid collection (Acute) Myocardial injury (Acute) ABBIE (acute kidney injury) (Acute) Chronic atrial fibrillation with RVR (Acute) Shock circulatory (Acute) Coagulopathy (Acute) PSVT (paroxysmal supraventricular tachycardia) (Acute) At high risk for skin breakdown (Acute) Parastomal ulcer of enterostomy (Acute) Abn react-external stoma (Acute) Pacemaker (Chronic) Elevated serum creatinine (Acute) Chronic pain in left foot (Acute) Hypercholesterolemia (Acute) Anemia due to GI blood loss (Acute) Medical History (Updated 07/12/24 @ 19:39 by Edwin Rangel MD) Stage 4 chronic kidney disease Hypomagnesemia Elevated troponin H/O malignant neoplasm of colon History of breast cancer CKD (chronic kidney disease), stage III CONTRERAS (nonalcoholic steatohepatitis) Cirrhosis Ischemic neuropathy of foot PAD (peripheral artery disease) Colon cancer Hypertension Paroxysmal atrial fibrillation Breast cancer Remains RADHA Surgical History Hemicolectomy (06/30/13) Right, due to 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 [facility] [place] Social History Smoking/Tobacco Use Status: Never Smoking risk assessment performed?: Yes Alcohol Intake: never Drug use: Never Housing: house Do you feel safe at home: Yes Do you feel safe in your relationship?: Yes POCUS Exam (ED) Limited Cardiac Exam DATE OF EXAM: 07/12/24 TIME OF EXAM: 22:12 PROVIDER THAT PERFORMED THE STUDY: Edwin Rangel IS THIS A REPEAT EXAM DURING THIS ENCOUNTER: no REASON FOR EXAM: Hypovolemic shock VISUALIZED STRUCTURES: Left ventricle, LVOT and Other structure: Lungs bilaterally VIEW OBTAINED: Parasternal long-axis and Subxiphoid PERTINENT FINDINGS/IMPRESSION: IVC inspiratory collapsability and Pericardial effusion; No LV dysfunction DIFFERENTIAL DIAGNOSES: good squeeze, small significant pericardial effusion. No B-lines bilaterally. Collapsible IVC. Patient unable to tolerate apical four-chamber. Exam complete
[2024-07-12 14:51] LABS: Abs Immature Grans 0.11 10^3/uL (0.0-0.06); Absolute Eosinophil Count 0.02 10^3/uL (0.0-0.7); Absolute Lymphocyte Count 2.46 10^3/uL (1.2-3.4); Basophils % 0.2 %; Eosinophils % 0.1 %; HCT 35.6 % (36.0-46.0); HGB 11.8 g/dL (11.2-15.7); Immature Grans % 0.7 %; Lymphocytes % 15.2 %; MCH 27.8 pg (27.0-33.0); MCHC 33.1 % (32.0-36.0); MCV 84 fL (80-95); MPV 9.5 fL (8.0-11.0); Monocytes % 9.9 %; Neutrophils % 73.9 %; Platelet Count 211 10^3/uL (130-400); RBC 4.25 10^6/uL (3.93-5.22); RDW 14.5 % (11.7-14.6); RDW-SD 43.8 fL; WBC 16.16 10^3/uL (4.4-10.8)
[2024-07-12 14:52] LABS: Absolute Basophil Count 0.03 10^3/uL (0.0-0.2); Absolute Neutrophil Count 11.94 10^3/uL (1.2-6.7)
[2024-07-12] MEDS: Normal Saline 500 ML IV ×3 (14:56→20:43)
[2024-07-12 15:05] LABS: Diff Comment Diff Reviewed
[2024-07-12 15:06] LABS: RBC Morphology Normal
[2024-07-12 15:09] LABS: ALT 8 U/L (14-59); AST 17 U/L (15-37); Albumin 2.6 g/dL (3.4-5.0); Alkaline Phosphatase 39 U/L (46-116); Anion Gap 16.1 mmol/L (3-11); BUN 54 mg/dL (7-18); Bilirubin, Total 2.18 mg/dL (0.2-1.0); CO2 16.9 mmol/L (21.0-32.0); Calcium 10.2 mg/dL (8.5-10.1); Chloride 99 mmol/L (98-107); Estimated GFR 10.99 (mL/min/1.73m2); Glucose 115 mg/dL (74-106); Lipase 43 U/L (16-77); Potassium 4.7 mmol/L (3.5-5.1); Sodium 132 mmol/L (136-145); Total Protein 6.7 g/dL (6.4-8.2)
[2024-07-12 15:19] LABS: CREATININE 3.8 mg/dL (0.55-1.02)
[2024-07-12 15:20] LABS: Troponin I 143 ng/L (< or =60)
[2024-07-12 15:23] LABS: D-Dimer 6109 ng/mlFEU (<500)
--- NOTE | 2024-07-12 16:15 | RT.EKG_ITS ---
APPROVED REPORT Exam: Resting ECG Reason for Exam: abnormal beat Patient Location: E HR:134 bpm ECG Measurements Heart Rate 134 AXIS [place] [id number] P 0 QRSd 122 QRS -63 QT 325 T 83 QTc 486 Conclusion Sinus tachycardia...rate> 99 RBBB and LAFB...QRSd >120mS, axis(-40,240) Rapid regular tachycardia at a rate of 134?a flutter versus SVT. T wave inversion in V3. Derek red to prior tachycardia is replaced normal sinus rhythm.
--- NOTE | 2024-07-12 16:34 | DI.CT_ITS ---
Exam(s) CT ABDOMEN PELVIS WO EXAM: CT ABDOMEN PELVIS WO CLINICAL HISTORY: Abdominal pain. TECHNIQUE: Imaging Protocol: Axial computed tomography images with coronal and sagittal reformatted images were created and reviewed CONTRAST MATERIAL: Intravenous: none Oral: None COMPARISON: CT CT CHEST/ABD/PEL WO from 04/24/[address] ABDOMEN PELVIS CTA from 05/21/2024 CR,XR XR PORTABLE CHEST AP POST LINE from 05/29/2024 FINDINGS: VISUALIZED LUNG BASES: No nodules nor pleural effusions evident. There is a small pericardial effusi on now evident. Cardiac pacemaker wires noted. Heart size is normal. ABDOMEN: GI: Again noted is a right-sided ostomy with para ostial hernia again noted to be containing numerous nondilated small bowel loops. However, on today's study there is now a significant amount of fluid within this hernia sac at and there is a prominent isodense large fluid collection within the central abdomen which was not evident on the prior CT scan of 05/21/2024. This collection measures 11.5 cm wide by 12.5 cm AP by 16 cm craniocaudal. It is intimately associated with adjacent bowel loops. Th ere does not appear to be free intraperitoneal air and there are no gas bubbles within this relativel y homogeneous collection. There is also again noted a smaller right para umbilical fat only containing hernia. There is also h igher up in the midline again noted dehiscence of the rectus sheath with fat only containing hernia a t this level again noted. However, there is subcutaneous streaking in the anterior and left of cente r subcutaneous fat now evident which was not previously present. Also some increased streaking in th e deep subcutaneous fat over the left flank. There is no drainable subcutaneous fat level fluid yvonne ection. There is no evidence of bowel obstruction. Hyperdense fecal material in the rectum is unchanged from prior studies. LIVER: Cirrhotic appearing liver again noted. Peripheral high subcapsular hypodensity again noted in the right hepatic lobe difficult to assess on a noncontrast study. Is unchanged from prior CT scans of 04/24/2023 and 05/21/2024. GALLBLADDER/BILIARY: The gallbladder is again noted be surgically absent. CBD is not dilated. PANCREAS: There is a stable appearing septated cystic mass again noted in the pancreatic body measuri ng 3 cm wide by 1.5 cm AP by 1.2 cm craniocaudal, unchanged. SPLEEN: Spleen is not enlarged. No obvious intrasplenic lesions. ADRENALS: There are no significant adrenal masses. KIDNEYS:Multiple cysts in the left kidney again noted, the largest measuring 6 x 6 cm and not requiri ng further workup. There is a small hemorrhagic cyst off the lateral cortex of the right kidney note d which appears minimally larger than March 2023 but nevertheless benign appearance. There are no radi opaque calculi in the kidneys nor hydronephrosis. High no ominous solid renal masses. No solid ankit l masses. No calculi nor hydronephrosis. . ABDOMINAL AORTA: Aorta is calcified but not enlarged. Common iliac arteries also calcified but not e nlarged. LYMPH NODES: There is no retroperitoneal nor paraaortic adenopathy. ABDOMINAL WALL: No evidence of significant anterior abdominal wall nor inguinal hernia. PELVIS: LYMPH NODES: There is no intrapelvic nor inguinal adenopathy. GI: No evidence of appendicitis.No evidence of sigmoid diverticulitis. URINARY BLADDER: No significant focal findings REPRODUCTIVE: Uterus is again noted be surgically absent. Left ovary not seen. There is a 4 x 4 cm non-cystic density in the right adnexa which is unchanged from prior studies and most probably enlarg ed right ovary. There is no surrounding free fluid nor free fluid in the dependent aspect of the pel vis. OSSEOUS: Mild height loss appear endplate of T12 is unchanged from previous studies. There are no ne w fractures but there is disc space narrowing and degenerative anterolisthesis of L3 upon L4 and L4 u lino L5 again noted. IMPRESSION: 1. The main new finding is a large abnormal fluid collection in the abdomen measuring 11.5 x 12.5 x 1 6 cm intimately associated with bowel loops and exhibiting similar density to increased fluid which i s now seen within the previously described right parastomal hernia sac. There are no gas bubbles wit hin this large fluid collection but nevertheless still suspicious for abscess. There is no bowel obs truction. No obvious free air. 2. Other anterior abdominal hernias contain only fat and no bowel loops nor fluid and are unchanged f rom prior CT scans 3. Previous cholecystectomy and uterus is again noted be surgically absent. 4. Cirrhotic appearing liver again noted with stable peripheral hypodensity which is unchanged from CT scan of March 2023 and may be benign. 5. Enlarged right ovary again noted, also unchanged. No surrounding fluid in the pelvis. Opposite- left ovary is again not identified. 6. There a small pericardial effusion now evident which was not present on prior CTs listed above. 7. There is continued stable appearance previously described cystic lesion in the pancreatic body. Report called by myself to ER physician 07/12/2024 at 5:20 p.m. RADIATION DOSE DELIVERED: Total DLP DATA REPOSITORY: All CT scans at this facility are submitted to the National Radiology Data Registry (NRDR) Dose Index Registry (DIR) with the [employer] (A[employer]). RADIATION OPTIMIZATION: All CT scans at this facility use at least one of these dose optimization te chniques: automated exposure control; mA and/or kV adjustment per patient size (includes targeted exa ms where dose is matched to clinical indication); or iterative reconstruction.
[2024-07-12] MEDS: MAGNESIUM SULFATE 2 GM/50 ML BAG IVINF (17:07)
[2024-07-12] MEDS: Normal Saline 1,000 ML 1000 ML IV (17:08)
[2024-07-12] MEDS: Metoprolol CR 50 MG TABCR PO (17:21)
[2024-07-12 17:35] LABS: Lactate 1.5 mmol/L (0.6-1.4)
[2024-07-12 17:36] LABS: Troponin I 113 ng/L (< or =60)
[2024-07-12] MEDS: fentaNYL 100 MCG/2 ML VIAL (17:37)
--- NOTE | 2024-07-12 17:45 | RT.EKG_ITS ---
APPROVED REPORT Exam: Resting ECG Reason for Exam: Normal rate Patient Location: E HR:65 bpm ECG Measurements Heart Rate 65 AXIS [place] 199 P [id number] QRSd 118 QRS -53 QT 444 T 55 QTc 463 Conclusion Atrial-paced complexes...other complexes also detected Incomplete RBBB and LAFB...axis(240,-40), S>R II III aVF Insert history atrial paced rhythm at a rate of 65. Bifascicular block incomplete. No acute injury pattern.
[2024-07-12 18:31] LABS: Bilirubin Negative (Negative); Blood Negative (Negative); Clarity Clear (Clear); Glucose Negative (Negative); Ketones Negative (Negative); Leukocyte Esterase Negative (Negative); Nitrite Negative (Negative); Specific Gravity 1.025 (1.005-1.025); Urobilinogen 0.2 mg/dL (Up to 0.2); pH 5.5 (5-8)
--- NOTE | 2024-07-12 18:55 | W.PM.HP.N ---
Date of service: 07/12/24 Time of Service: 18:55 Assessment and Plan Assessment and plan (1) PSVT (paroxysmal supraventricular tachycardia): Status: Acute (2) Chronic atrial fibrillation with RVR: Status: Acute (3) Effusion, pericardium: Status: Acute (4) Shock circulatory: Status: Acute (5) Intraabdominal fluid collection: Status: Acute Assessment and plan: The recommendation was made to the patient for surgical intervention. It was explained to the patient that she is a very high risk patient. She has multi organ system failure. I subsequently discussed the case with the anesthesia team and the medicine team both teams agree that the patient is a high risk surgical patient with a poor prognosis. The medicine team is concerned about cardiac collapse intraoperatively due to new pericardial effusion and difficulty with resuscitation. They are also concerned with inability to control her heart rate postoperatively which could lead to myocardial infarction. The anesthesia team who is very familiar with the patient and her case suggest that the patient return to [facility] since that is where she had her initial surgical intervention for GI bleed. They are also concerned that the patient is a very complicated surgical case and a high risk patient. It is the consensus of the teams that the patient is a very high risk surgical patient and to have the best chance at survival she should be treated at a higher center of care. I explained all this to the patient and she requested that I speak to her daughter. I had a long conversation with her daughter Iris Rivas at [phone]. The patient's daughter's daughter Iris, also agrees the patient should be transferred to [facility] or another institution of higher level of care. I spoke with the emergency department physician who will assist in trying to get the patient transferred to [facility]. I also asked the patient's daughter to consider how she would like for us to proceed if we are unable to transfer the patient to a higher level of care with the understanding that the patient will most likely have a poor outcome with surgical intervention versus medical management. [facility] accepted patient as a transfer. (6) Elevated serum creatinine: Status: Acute History of Present Illness History of Present Illness Chief Complaint: Abdominal pain Narrative: This patient is a pleasant 88-year-old female with multiple medical comorbidities including but not limited to chronic atrial fibrillation, paroxysmal supra ventricular tachycardia, hypertension, renal insufficiency and pacemaker. She is 6 weeks ago the patient presented to [facility] with GI bleed from her ileostomy. Prior to her presentation the patient was treated at [facility] by interventional radiology for her GI bleed. Apparently the GI bleed was refractory to the care given by the interventional radiologist at [facility]. The patient was subsequently admitted to [facility]. After failure of medical management the patient was taken to the operating room for resection of the ileal stoma with the bleeding ulcer and a new ileostomy creation. The patient did fair postoperatively and was discharged home. Today the patient presents emergency department with complaints of several days of abdominal swelling, increased pain fevers and chills, decreased urination. The patient reports that she had only been urinating once a day for the past week.. Emergency department CT scan demonstrated a 16 cm fluid collection in the central abdomen associated with the new ileostomy and parastomal hernia. The patient was also found to have a new new pericardial effusion. It was also noted that the patient was in renal failure with a creatinine at creatinine of 3.8. Previous document creatinine was in the 1.3-1.5 range. Her troponins were also elevated. She also demonstrated hypotension with a blood pressure of 88/48. [facility] All Active Problems (Updated 07/12/24 @ 19:39 by Edwin Rangel MD) Effusion, pericardium (Acute) Intraabdominal fluid collection (Acute) Myocardial injury (Acute) ABBIE (acute kidney injury) (Acute) Chronic atrial fibrillation with RVR (Acute) Shock circulatory (Acute) Coagulopathy (Acute) PSVT (paroxysmal supraventricular tachycardia) (Acute) At high risk for skin breakdown (Acute) Parastomal ulcer of enterostomy (Acute) Abn react-external stoma (Acute) Pacemaker (Chronic) Elevated serum creatinine (Acute) Chronic pain in left foot (Acute) Hypercholesterolemia (Acute) Anemia due to GI blood loss (Acute) Medical History (Updated 07/12/24 @ 19:39 by Edwin Rangel MD) Stage 4 chronic kidney disease Hypomagnesemia Elevated troponin H/O malignant neoplasm of colon History of breast cancer CKD (chronic kidney disease), stage III CONTRERAS (nonalcoholic steatohepatitis) Cirrhosis Ischemic neuropathy of foot PAD (peripheral artery disease) Colon cancer Hypertension Paroxysmal atrial fibrillation Breast cancer Remains RADHA Surgical History Hemicolectomy (06/30/13) Right, due to 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 Park @ [facility] [place]-no recurrence Social History Smoking/Tobacco Use Status: Never Smoking risk assessment performed?: Yes Alcohol Intake: never Drug use: Never Housing: house Do you feel safe at home: Yes Do you feel safe in your relationship?: Yes Meds Allergies and Home Medications Allergies Allergy/AdvReac Type Severity Reaction Status Date / Time No Known Allergies Allergy Unverified 07/12/24 16:42 Home Medications ?Medication ?Instructions ?Recorded ?Confirmed ?Type gabapentin 600 mg tablet 600 mg PO BID 09/16/16 07/12/24 History magnesium 250 mg tablet 250 mg PO DAILY #20 tabs 06/04/23 07/12/24 Rx cholecalciferol (vitamin D3) 125 125 mcg PO DAILY 06/11/23 07/12/24 History mcg (5,000 unit) capsule metoprolol succinate 50 mg 50 mg PO DAILY 05/21/24 07/12/24 History tablet,extended release 24 hr diltiazem HCl 120 mg 120 mg PO DAILY #30 caps 06/03/24 07/12/24 Rx capsule,extended release 24 hr Exam Resp Effort & Inspection: normal respiratory effort and able to speak in complete sentences Auscultation: clear to auscultation bilaterally Cardio Jugular venous pressure: no JVD Other: irregular rhythm. tachy at times GI Palpation: soft and guarding Other: abdomen- distened with percussion and rebound tenderness. RUQ ostomy with erythema surrounding previous ostomy site. liquid stool in ostoy bag Results Labs 07/12/24 19:50 07/12/24 19:50 Labs: Laboratory Results - last 24 hr 07/12/24 07/12/24 07/12/24 14:36 17:06 17:27 WBC 16.16 H RBC 4.25 Hgb 11.8 Hct 35.6 L MCV 84 MCH 27.8 MCHC 33.1 RDW 14.5 Plt Count 211 MPV 9.5 Immature Gran % 0.7 Neutrophils % 73.9 Lymphocytes % 15.2 Monocytes % 9.9 Eosinophils % 0.1 Basophils % 0.2 Nucleated RBC % 0.0 Absolute Neutrophils 11.94 H Absolute Lymphocytes 2.46 Absolute Monocytes 1.60 H Absolute Eosinophils 0.02 Absolute Basophils 0.03 RBC Morphology Normal D-Dimer 6109 H VBG Lactate Sodium 132 L Potassium 4.7 Chloride 99 Carbon Dioxide 16.9 L Anion Gap 16.1 H BUN 54 H Creatinine 3.8 H* Est GFR (CKD-EPI 2020) 10.99 Glucose 115 H Calcium 10.2 H Total Bilirubin 2.18 H AST 17 ALT 8 L Alkaline Phosphatase 39 L Troponin I 143 H* 113 H* Total Protein 6.7 Albumin 2.6 L Lipase 43 Urine Color Yellow Urine Clarity Clear Urine pH 5.5 Ur Specific Griffin 1.025 Urine Protein Negative Urine Ketones Negative Urine Blood Negative Urine Nitrite Negative Urine Bilirubin Negative Urine Urobilinogen 0.2 Ur Leukocyte Esterase Negative Urine Glucose Negative ABO/Rh A Positive Antibody Screen POSITIVE 07/12/24 17:33 WBC RBC Hgb Hct MCV MCH MCHC RDW Plt Count MPV Immature Gran % Neutrophils % Lymphocytes % Monocytes % Eosinophils % Basophils % Nucleated RBC % Absolute Neutrophils Absolute Lymphocytes Absolute Monocytes Absolute Eosinophils Absolute Basophils RBC Morphology D-Dimer VBG Lactate 1.5 H Sodium Potassium Chloride Carbon Dioxide Anion Gap BUN Creatinine Est GFR (CKD-EPI 2020) Glucose Calcium Total Bilirubin AST ALT Alkaline Phosphatase Troponin I Total Protein Albumin Lipase Urine Color Urine Clarity Urine pH Ur Specific Griffin Urine Protein Urine Ketones Urine Blood Urine Nitrite Urine Bilirubin Urine Urobilinogen Ur Leukocyte Esterase Urine Glucose ABO/Rh Antibody Screen Last Vital Signs Temp 98.6 F 07/12/24 16:31 Pulse 122 H 07/12/24 17:41 Resp 14 07/12/24 17:50 BP 88/59 L 07/12/24 17:41 Pulse Ox 98 07/12/24 18:10 Time Spent Time spent with Patient: >75 minutes Time was spent: preparing to see the patient(eg.review tests), obtaining and/or reviewing separately otained hiistory, referring, communicating with other health healthcare prof, indepentently interpreting results, counseling the patient and care coordination
[2024-07-12] MEDS: PIPERACILLIN/TAZO 3.375 GM in Normal Saline 50 ML IVPB (19:56)
[2024-07-12 20:00] LABS: HCT 29.7 % (36.0-46.0); HGB 9.7 g/dL (11.2-15.7)
[2024-07-12 20:15] LABS: Anion Gap 11.9 mmol/L (3-11); BUN 54 mg/dL (7-18); CO2 18.1 mmol/L (21.0-32.0); CREATININE 3.4 mg/dL (0.55-1.02); Calcium 9.5 mg/dL (8.5-10.1); Chloride 103 mmol/L (98-107); Estimated GFR 12.56 (mL/min/1.73m2); Glucose 112 mg/dL (74-106); Potassium 5.1 mmol/L (3.5-5.1); Sodium 133 mmol/L (136-145)
[2024-07-12] MEDS: VANCOMYCIN 1,500 MG in Normal Saline 500 ML 333.3333 MG IVPB (20:39)
--- NOTE | 2024-07-12 21:30 | RT.EKG_ITS ---
APPROVED REPORT Exam: Resting ECG Reason for Exam: hipotensive Patient Location: E HR:107 bpm ECG Measurements Heart Rate 107 AXIS SD [id number] P [id number] QRSd 119 QRS -61 QT 387 T 73 QTc 500 Conclusion Atrial flutter...A-rate 288 Incomplete RBBB and LAFB...axis(240,-40), S>R II III aVF Rate controlled atrial flutter at a rate of 107. Prolonged QTc. Incomplete right bundle with left a xis deviation. No acute injury pattern.
[2024-07-12] MEDS: dilTIAZem 25 MG/5 ML VIAL 10 MG IVP (21:37)
[2024-07-12] MEDS: Normal Saline 1,000 ML 125 ML IV (22:00)
--- NOTE | 2024-07-13 07:22 | NUR.NOTE ---
pts chart opened to view HIPPA form. Nursing Note:
--- NOTE | 2024-07-13 14:06 | NUR.NOTE ---
Chart opned to chart critical care values. Nursing Note:
== END 2024-07-12 17:34 | disposition short-term general hospital (02) ==
PROVIDERS: Emergency Provider Emergency Medicine; PCP Legal Medicine
DX: N17.9 Acute kidney failure, unspecified; I5A Non-ischemic myocardial injury (non-traumatic); R18.8 Other ascites; I31.39 Other pericardial effusion (noninflammatory); R79.89 Other specified abnormal findings of blood chemistry; Z93.3 Colostomy status; I45.2 Bifascicular block
CPT/HCPCS: 00123; 36415; 36569; 51702; 80048; 80053; 83690; 86850; 86900; 86901; 87040; 87077; 93005; 93308; 96361; 96365; 96375; 99291; 74176; 81003; 83605; 84484; 85014; 85018; 85025; 85379; 86870; 93010; J2543; J3010; J3370; J3475

== ENCOUNTER 2024-08-19 01:37 | Outpatient (CLI) | payer MEDICARE, BC, SELFPAY ==
[2024-08-19 12:39] LABS: Abs Immature Grans 0.02 10^3/uL (0.0-0.06); Absolute Basophil Count 0.02 10^3/uL (0.0-0.2); Absolute Lymphocyte Count 1.08 10^3/uL (1.2-3.4); Absolute Neutrophil Count 3.15 10^3/uL (1.2-6.7); Basophils % 0.4 %; Eosinophils % 4.1 %; HCT 29.1 % (36.0-46.0); HGB 9.2 g/dL (11.2-15.7); Immature Grans % 0.4 %; Lymphocytes % 22.2 %; MCH 27.4 pg (27.0-33.0); MCHC 31.6 % (32.0-36.0); MCV 87 fL (80-95); MPV 10.3 fL (8.0-11.0); Monocytes % 8.2 %; Neutrophils % 64.7 %; RBC 3.36 10^6/uL (3.93-5.22); RDW 16.2 % (11.7-14.6); RDW-SD 51.2 fL; WBC 4.87 10^3/uL (4.4-10.8)
[2024-08-19 12:42] LABS: Anion Gap 9.9 mmol/L (3-11); BUN 33 mg/dL (7-18); CO2 26.1 mmol/L (21.0-32.0); CREATININE 2.2 mg/dL (0.55-1.02); Calcium 9.7 mg/dL (8.5-10.1); Chloride 101 mmol/L (98-107); Estimated GFR 21.17 (mL/min/1.73m2); Glucose 187 mg/dL (74-106); Potassium 3.8 mmol/L (3.5-5.1); Sodium 137 mmol/L (136-145)
[2024-08-19 12:50] LABS: Platelet Count 96 10^3/uL (130-400)
[2024-08-19 12:51] LABS: Diff Comment Diff Reviewed; Polychromasia Present
== END 2024-08-19 01:38 | disposition home or self-care (01) ==
LOC: LBO 01:48
PROVIDERS: PCP Legal Medicine; Visit Provider Family Medicine
DX: D63.8 Anemia in other chronic diseases classified elsewhere (principal); N18.9 Chronic kidney disease, unspecified; I48.20 Chronic atrial fibrillation, unspecified; M62.81 Muscle weakness (generalized)
CPT/HCPCS: 36415; 80048; 85025

== ENCOUNTER 2024-09-06 10:11 | Outpatient (CLI) | payer MEDICARE, BC, SELFPAY ==
[2024-09-06 10:11] LABS: INR 2.3 (0.9-1.1); Prothrombin Time 21.6 sec (9.1-11.1)
== END 2024-09-06 10:12 | disposition home or self-care (01) ==
LOC: LBO 10:12
PROVIDERS: PCP Legal Medicine; Visit Provider Legal Medicine
DX: I74.9 Embolism and thrombosis of unspecified artery (principal)
CPT/HCPCS: 36415; 85610

== ENCOUNTER 2024-09-16 13:11 | Outpatient (CLI) | payer MEDICARE, BC, SELFPAY ==
[2024-09-16 11:38] LABS: INR 2.7 (0.9-1.1); Prothrombin Time 25.3 sec (9.1-11.1)
== END 2024-09-16 13:12 | disposition home or self-care (01) ==
LOC: LBO 13:11
PROVIDERS: PCP Legal Medicine; Visit Provider Legal Medicine
DX: I74.9 Embolism and thrombosis of unspecified artery (principal)
CPT/HCPCS: 36415; 85610

== ENCOUNTER 2024-09-30 11:20 | Outpatient (CLI) | payer MEDICARE, BC, SELFPAY ==
[2024-09-30 09:49] LABS: INR 1.9 (0.9-1.1); Prothrombin Time 18.4 sec (9.1-11.1)
== END 2024-09-30 11:21 | disposition home or self-care (01) ==
LOC: LBO 11:22
PROVIDERS: PCP Legal Medicine; Visit Provider Legal Medicine
DX: I82.409 Acute embolism and thrombosis of unspecified deep veins of unspecified lower extremity (principal)
CPT/HCPCS: 36415; 85610

== ENCOUNTER 2024-10-06 09:38 | Outpatient (CLI) | payer MEDICARE, BC, SELFPAY ==
[2024-10-06 09:56] LABS: INR 2.2 (0.9-1.1); Prothrombin Time 20.6 sec (9.1-11.1)
== END 2024-10-06 09:39 | disposition home or self-care (01) ==
LOC: LBO 09:38
PROVIDERS: PCP Legal Medicine; Visit Provider Legal Medicine
DX: I82.409 Acute embolism and thrombosis of unspecified deep veins of unspecified lower extremity (principal)
CPT/HCPCS: 36415; 85610

== ENCOUNTER 2024-10-18 11:01 | Outpatient (CLI) | payer MEDICARE, BC, SELFPAY ==
[2024-10-18 11:35] LABS: INR 1.7 (0.9-1.1)
== END 2024-10-18 11:02 | disposition home or self-care (01) ==
LOC: LBO 11:01
PROVIDERS: PCP Legal Medicine; Visit Provider Legal Medicine
DX: I82.409 Acute embolism and thrombosis of unspecified deep veins of unspecified lower extremity (principal)
CPT/HCPCS: 36415; 85610

== ENCOUNTER 2024-10-26 11:42 | Outpatient (CLI) | payer MEDICARE, BC, SELFPAY ==
[2024-10-26 11:18] LABS: Prothrombin Time 41.9 sec (9.1-11.1)
[2024-10-26 11:33] LABS: INR 4.8 (0.9-1.1)
== END 2024-10-26 11:43 | disposition home or self-care (01) ==
LOC: LBO 11:43
PROVIDERS: PCP Legal Medicine; Visit Provider Legal Medicine
DX: I82.409 Acute embolism and thrombosis of unspecified deep veins of unspecified lower extremity (principal)
CPT/HCPCS: 36415; 85610

== ENCOUNTER 2024-11-07 10:43 | Outpatient (CLI) | payer MEDICARE, BC, SELFPAY ==
[2024-11-07 10:39] LABS: INR 2.4 (0.9-1.1); Prothrombin Time 22.3 sec (9.1-11.1)
== END 2024-11-07 10:44 | disposition home or self-care (01) ==
LOC: LBO 10:45
PROVIDERS: PCP Legal Medicine; Visit Provider Legal Medicine
DX: I82.409 Acute embolism and thrombosis of unspecified deep veins of unspecified lower extremity (principal)
CPT/HCPCS: 36415; 85610

== ENCOUNTER 2024-11-14 11:27 | Outpatient (CLI) | payer MEDICARE, BC, SELFPAY ==
[2024-11-14 11:41] LABS: INR 2.2 (0.9-1.1); Prothrombin Time 20.5 sec (9.1-11.1)
== END 2024-11-14 11:28 | disposition home or self-care (01) ==
LOC: LBO 11:28
PROVIDERS: PCP Legal Medicine; Visit Provider Legal Medicine
DX: I82.409 Acute embolism and thrombosis of unspecified deep veins of unspecified lower extremity (principal)
CPT/HCPCS: 36415; 85610

== ENCOUNTER 2024-11-21 11:37 | Outpatient (CLI) | payer MEDICARE, BC, SELFPAY ==
[2024-11-21 10:51] LABS: INR 3.1 (0.9-1.1)
== END 2024-11-21 11:38 | disposition home or self-care (01) ==
LOC: LBO 11:38
PROVIDERS: PCP Legal Medicine; Visit Provider Legal Medicine
DX: I82.409 Acute embolism and thrombosis of unspecified deep veins of unspecified lower extremity (principal)
CPT/HCPCS: 36415; 85610

== ENCOUNTER 2024-11-28 13:56 | Outpatient (CLI) | payer MEDICARE, BC, SELFPAY ==
[2024-11-28 11:20] LABS: Prothrombin Time 21.1 sec (9.1-11.1)
[2024-11-28 11:23] LABS: INR 2.2 (0.9-1.1)
== END 2024-11-28 13:57 | disposition home or self-care (01) ==
LOC: LBO 13:57
PROVIDERS: PCP Legal Medicine; Visit Provider Legal Medicine
DX: I82.409 Acute embolism and thrombosis of unspecified deep veins of unspecified lower extremity (principal)
CPT/HCPCS: 36415; 85610

== ENCOUNTER 2024-12-05 11:03 | Outpatient (CLI) | payer MEDICARE, SELFPAY ==
[2024-12-05 11:32] LABS: INR 1.6 (0.9-1.1); Prothrombin Time 15.4 sec (9.1-11.1)
== END 2024-12-05 11:04 | disposition home or self-care (01) ==
LOC: LBO 11:04
PROVIDERS: PCP Legal Medicine; Visit Provider Legal Medicine
DX: I82.409 Acute embolism and thrombosis of unspecified deep veins of unspecified lower extremity (principal)
CPT/HCPCS: 36415; 85610

== ENCOUNTER 2024-12-12 11:54 | Outpatient (CLI) | payer MEDICARE, SELFPAY ==
[2024-12-12 11:05] LABS: Prothrombin Time 18.8 sec (9.1-11.1)
== END 2024-12-12 11:55 | disposition home or self-care (01) ==
LOC: LBO 11:55
PROVIDERS: PCP Legal Medicine; Visit Provider Legal Medicine
DX: I82.409 Acute embolism and thrombosis of unspecified deep veins of unspecified lower extremity (principal)
CPT/HCPCS: 36415; 85610

== ENCOUNTER 2024-12-19 11:28 | Outpatient (CLI) | payer MEDICARE, SELFPAY ==
[2024-12-19 11:31] LABS: Prothrombin Time 19.2 sec (9.1-11.1)
== END 2024-12-19 11:29 | disposition home or self-care (01) ==
LOC: LBO 11:28
PROVIDERS: PCP Legal Medicine; Visit Provider Legal Medicine
DX: I82.409 Acute embolism and thrombosis of unspecified deep veins of unspecified lower extremity (principal)
CPT/HCPCS: 36415; 85610

== ENCOUNTER 2024-12-26 14:21 | Outpatient (CLI) | payer MEDICARE, SELFPAY ==
[2024-12-26 11:20] LABS: INR 1.5 (0.9-1.1); Prothrombin Time 14.8 sec (9.1-11.1)
== END 2024-12-26 14:22 | disposition home or self-care (01) ==
LOC: LBO 14:45
PROVIDERS: PCP Legal Medicine; Visit Provider Legal Medicine
DX: I82.409 Acute embolism and thrombosis of unspecified deep veins of unspecified lower extremity (principal)
CPT/HCPCS: 36415; 85610

== ENCOUNTER 2025-01-02 14:25 | Outpatient (CLI) | payer MEDICARE, SELFPAY ==
[2025-01-02 11:08] LABS: INR 1.7 (0.9-1.1); Prothrombin Time 16.1 sec (9.1-11.1)
== END 2025-01-02 14:26 | disposition home or self-care (01) ==
LOC: LBO 14:25
PROVIDERS: PCP Legal Medicine; Visit Provider Legal Medicine
DX: I82.409 Acute embolism and thrombosis of unspecified deep veins of unspecified lower extremity (principal)
CPT/HCPCS: 36415; 85610

== ENCOUNTER 2025-04-25 04:33 | Inpatient (IN) | payer MEDICARE, SELFPAY ==
[2025-04-25] VITALS (138 sets, daily range): BP systolic 65–161; BP diastolic 23–122; PULSE 45–131; RESP 11–32; TEMP 35.9–37; O2SAT 78–100
--- NOTE | 2025-04-25 04:40 | ED.GENADUL_ITS ---
Discharge Plan Discharge Details Chief Complaint: GI Bleed Clinical Impression: Acute renal failure, Hyperkalemia, GI bleeding Primary Care Provider: Dede Miller ED Provider: Arsh Garcia [place] Meds and New Rx's Prescriptions: No Action cholecalciferol (vitamin D3) 125 mcg (5,000 unit) capsule 125 mcg PO DAILY gabapentin 600 MG tablet 600 mg PO BID magnesium 250 mg tablet 250 mg PO DAILY Qty: 20 0RF diltiazem HCl 120 mg Capsule,Extended Release 24hr 120 mg PO DAILY Qty: 30 0RF metoprolol succinate 50 mg tablet extended release 24 hr 50 mg PO DAILY HPI General Mode of arrival: EMS . Date/Time Provider Initiated Documentation: 04/25/25 04:40 . Information obtained by: patient, EMS, RN notes reviewed and old records reviewshahab Domingo HPI Narrative: Patient presents to ED by ambulance with complaint of feeling weak and lightheaded, bleeding from her ileostomy. Patient seems a little confused and is a difficult historian. EMS reports told them she has been having blood in her ostomy bag on and off for maybe 3 weeks now. Over the last 24 hours complaining of feeling weak and dizzy. Patient denies having any type of chest pain or pressure, shortness of breath, abdominal pain. She has a history of atrial fibrillation but is not anticoagulated anymore. She had been on war farin in the past. Currently reports only taking metoprolol and gabapentin. Related Data Home Medications ?Medication ?Instructions ?Recorded ?Confirmed gabapentin 600 mg tablet 600 mg PO BID 09/16/16 04/25/25 magnesium 250 mg tablet 250 mg PO DAILY #20 tabs 06/04/23 04/25/25 cholecalciferol (vitamin D3) 125 125 mcg PO DAILY 06/11/23 04/25/25 mcg (5,000 unit) capsule metoprolol succinate 50 mg 50 mg PO DAILY 05/21/24 04/25/25 tablet,extended release 24 hr diltiazem HCl 120 mg 120 mg PO DAILY #30 caps 06/03/24 04/25/25 capsule,extended release 24 hr Previous Rx's ?Medication ?Instructions ?Recorded magnesium 250 mg tablet 250 mg PO DAILY #20 tabs 06/04/23 diltiazem HCl 120 mg 120 mg PO DAILY #30 caps 06/03/24 capsule,extended release 24 hr Allergies Allergy/AdvReac Type Severity Reaction Status Date / Time No Known Allergies Allergy Unverified 04/25/25 04:35 General Stated Complaint: GI Bleed LETI: 3 Exam Narrative Exam Narrative: Const: WDWN elderly female in NAD. VS per triage. HEENT: NC/AT. Normal facial exam. Neck: Supple. Trachea midline. Lungs: Normal respiratory effort. Lungs are clear. Cor: RRR with murmur. Good radial pulses. GI: Soft/ND/NT. Ileostomy in RLQ, very dark red blood in the ostomy bag. Neuro: A+O x 2. Normal speech. Cranial nerves II - XII grossly intact. No gross motor or sensory deficit. Ext: No C/C/E. Course Vital Signs Vital signs: Vital Signs Temperature 96.7 F L 04/25/25 04:27 Respiratory Rate 14 04/25/25 04:27 Blood Pressure 127/50 L 04/25/25 04:27 Pulse Oximetry 96 04/25/25 04:27 Temperature 96.7 F L 04/25/25 04:27 Temperature Source Temporal Artery Scan 04/25/25 04:27 Respiratory Rate 14 04/25/25 04:27 Blood Pressure 127/50 L 04/25/25 04:27 Blood Pressure Position Supine 04/25/25 04:27 Pulse Oximetry 96 04/25/25 04:27 Oxygen Delivery Method Room Air 04/25/25 04:27 Oxygen Flow Rate 0 04/25/25 04:27 Pain Level 0 04/25/25 04:27 Medical Decision Making Patient presenting to ED by ambulance from home with weakness and dizziness likely secondary to intermittent bleeding into her ostomy. Patient with similar problem last summer resulting in 9 units of packed red cells being transfused and ultimately revision of her ileostomy. Patient currently denies any pain, shortness of breath. She does have history of atrial fibrillation and has been on warfarin in the past but reports not being anticoagulated currently. Will obtain IV and give 500 mL bolus of saline pending laboratory results. Currently hemodynamically stable with a normal heart rate and blood pressure. 06:00 - Patient's hemoglobin is normal. However, she has a significant increase in her kidney function now with a BUN of 152 and creatinine of 5.3. Potassium elevated to 6.3 with a bicarb of 12 and anion gap of 17. Her EKG is atrially paced and not significantly different from her EKG back in June. She remains hemodynamically stable without physical complaint. Will give a second bolus of saline, treat the hyperkalemia with calcium gluconate, sodium bicarb, insulin and dextrose intravenously. Will also give dose of Lokelma. Urinalysis ordered. Plan to repeat a BMP an hour after treatment as outlined. 06:30 - Patient has now gone into atrial flutter but blood pressure remains normal. Will give a dose of IV lopressor for rate control. is here now. I have confirmed with patient that she wishes to remain DNR/DNI. She also has no interest in dialysis. Will plan repeat BMP at 7:30. Patient will be signed out to oncoming ED physician. Medical Records Medical records reviewed: Yes I reviewed the patient's medical records. Medical records narrative: Notes from last summer when patient was found to have ulcer involving her previous stoma resulting in resection and revision. Lab Data Lab results reviewed: Yes I reviewed the patient's lab results. Lab results narrative: See [facility] ECG Data Attestation: I personally reviewed and interpreted this ECG (s) as follows: Prior ECG tracings: available for review Interpretation: See EKG/MDM Critical Care Time Critical Care Time Critical Care Time: Yes Total Critical Care Time: 45 Attestation: Upon my evaluation, this patient had a high probability of imminent or life- threatening deterioration, which required my direct attention, intervention, and personal management. I have personally provided 45 minutes of critical care time exclusive of time spent on separately billable procedures. Time includes monitoring for potential decompensation, ordering of tests and medications, review of laboratory and radiology results, discussion with consultants and documentation . Interventions were performed as documented above in procedures. PFS All Active Problems (Updated 04/25/25 @ 06:43 by Arsh Garcia MD) GI bleeding (Chronic) Hyperkalemia (Acute) Acute renal failure (Acute) PSVT (paroxysmal supraventricular tachycardia) (Acute) At high risk for skin breakdown (Acute) Parastomal ulcer of enterostomy (Acute) Abn react-external stoma (Acute) Elevated serum creatinine (Acute) Chronic pain in left foot (Acute) Medical History Pacemaker Hypercholesterolemia Stage 4 chronic kidney disease H/O malignant neoplasm of colon History of breast cancer CKD (chronic kidney disease), stage III CONTRERAS (nonalcoholic steatohepatitis) Cirrhosis Ischemic neuropathy of foot PAD (peripheral artery disease) Hypertension Paroxysmal atrial fibrillation Surgical History Hemicolectomy (06/30/13) Right, 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 Park @ [facility] [place], 2014-no recurrence Social History Smoking/Tobacco Use Status: Never Smoking risk assessment performed?: Yes Alcohol Intake: never Drug use: Never Substance use type: does not use Housing: house Do you feel safe at home: Yes Do you feel safe in your relationship?: Yes
--- NOTE | 2025-04-25 04:45 | RT.EKG_ITS ---
APPROVED REPORT Exam: Resting ECG Reason for Exam: GI Bleed; hx of afib Patient Location: E HR:60 bpm ECG Measurements Heart Rate 60 AXIS HI 181 P [id number] QRSd 122 QRS -62 QT 433 T 61 QTc 433 Conclusion Atrial-paced rhythm RBBB and LAFB...QRSd >120mS, axis(-40,240) Probable left ventricular hypertrophy...(RaVL+SV3)xQRSd >300 ST elevation, consider inferior injury...ST >0.08mV, II III aVF There is no ST elevation inferiorly. EKG is similar to EKG from 07/12/24 @ 19:42.
[2025-04-25 05:08] LABS: Abs Immature Grans 0.03 10^3/uL (0.0-0.06); Absolute Basophil Count 0.05 10^3/uL (0.0-0.2); Absolute Monocyte Count 0.48 10^3/uL (0.1-0.8); Basophils % 0.5 %; HCT 39.5 % (36.0-46.0); HGB 13.2 g/dL (11.2-15.7); Immature Grans % 0.3 %; Lymphocytes % 9.3 %; MCH 28.6 pg (27.0-33.0); MCHC 33.4 % (32.0-36.0); MCV 86 fL (80-95); MPV 9.5 fL (8.0-11.0); Monocytes % 4.4 %; Neutrophils % 85.5 %; Platelet Count 107 10^3/uL (130-400); RBC 4.62 10^6/uL (3.93-5.22); RDW 15.7 % (11.7-14.6); RDW-SD 48.7 fL; WBC 10.81 10^3/uL (4.4-10.8)
[2025-04-25 05:10] LABS: Absolute Lymphocyte Count 1.01 10^3/uL (1.2-3.4); Absolute Neutrophil Count 9.24 10^3/uL (1.2-6.7)
[2025-04-25] MEDS: Normal Saline 500 ML IV ×2 (05:17→06:26)
[2025-04-25 05:31] LABS: INR 1.1 (0.9-1.1)
[2025-04-25 05:32] LABS: ALT 22 U/L (14-59); AST 28 U/L (15-37); Albumin 4.1 g/dL (3.4-5.0); Alkaline Phosphatase 79 U/L (46-116); Anion Gap 17.1 mmol/L (3-11); Bilirubin, Total 2.3 mg/dL (0.2-1.0); CO2 11.9 mmol/L (21.0-32.0); Calcium 10.5 mg/dL (8.5-10.1); Chloride 105 mmol/L (98-107); Estimated GFR 7.32 (mL/min/1.73m2); Glucose 140 mg/dL (74-106); Sodium 134 mmol/L (136-145); Total Protein 7.6 g/dL (6.4-8.2)
[2025-04-25 05:42] LABS: CREATININE 5.3 mg/dL (0.55-1.02); Potassium 6.3 mmol/L (3.5-5.1)
[2025-04-25 05:43] LABS: BUN 152 mg/dL (7-18)
[2025-04-25] MEDS: Dextrose 50%-Water 25 GM/50 ML SYR IVP (06:25)
[2025-04-25] MEDS: Sodium Bicarbonate 50 MEQ/50 ML SYR IVP (06:25)
[2025-04-25] MEDS: Sodium Zirconium Cyclosilicate 10 GM PKT PO ×2 (06:25→22:59)
[2025-04-25] MEDS: Calcium Gluconate 4.65 MEQ/10 ML VIAL 4.65 MG IVP (06:25)
[2025-04-25] MEDS: Normal Saline 50 ML (06:26)
[2025-04-25] MEDS: Insulin REGULAR-Human 100 UNITS/ML UNIT 10 UNITS IV (06:31)
[2025-04-25] MEDS: Metoprolol 5 MG/5 ML VIAL IVP (06:35)
[2025-04-25 07:02] LABS: Bilirubin Negative (Negative); Blood Small (Negative); Clarity Sl Cloudy (Clear); Glucose Negative (Negative); Ketones Negative (Negative); Leukocyte Esterase Large (Negative); Nitrite Negative (Negative); Specific Gravity 1.015 (1.005-1.025); Urobilinogen 0.2 mg/dL (Up to 0.2); pH 5.5 (5-8)
[2025-04-25 07:10] LABS: Bacteria Many HPF (Negative); C & S Indicated? No/Sq. Contamination; Casts Negative LPF (Negative); Crystals Negative HPF (Negative); Epithelial Cells Moderate HPF (Negative); Mucus Negative (Negative); Other Cells Few Transitional (Negative)
[2025-04-25 07:11] LABS: WBC 20-50 HPF (0-5)
--- NOTE | 2025-04-25 07:19 | ED.PROG_ITS ---
Date of service: 04/25/25 Time of Service: 07:19 Medical Decision Making I received signout on this 89-year-old DNI DNR female who would not want dialysis found to have significant ABBIE elevated BUN and hyperkalemia for which she is receiving treatment with insulin, bicarbonate, calcium, and potassium binder using sodium zirconium. Repeat basic metabolic panel ordered for 7:30 AM. 9:37 AM I met with the patient's her daughter Iris with Dr. Escalante. Patient confirms she would not want dialysis. Patient was accepted to [facility]. Her renal function improved slightly and her hyperkalemia resolved. Quality:[facility] Health Related Social Needs: Health related social needs housing instability, house d, with risk of homelessness (Z59.811), feeling lonely/isolated (Z60.8) Health related social needs details n/a, Discharge Plan Disposition Patient Disposition: Admit to [facility] Discharge Details Clinical Impression: Acute renal failure, Hyperkalemia, GI bleeding Admit Date/Time: 04/25/25 10:06 Admit Provider: Edwin Escalante Attending Provider: Edwin Escalante Primary Care Provider: Dede Miller ED Provider: Edwin Rangel Discharge Data Discharge Date/Time-TO BE ENTERED AT DEPARTURE: 04/25/25 11:14
[2025-04-25 08:32] LABS: Anion Gap 15.8 mmol/L (3-11); CO2 13.2 mmol/L (21.0-32.0); Calcium 9.7 mg/dL (8.5-10.1); Chloride 110 mmol/L (98-107); Estimated GFR 8.46 (mL/min/1.73m2); Glucose 153 mg/dL (74-106); Potassium 4.8 mmol/L (3.5-5.1); Sodium 139 mmol/L (136-145)
[2025-04-25 08:33] LABS: BUN 148 mg/dL (7-18); CREATININE 4.7 mg/dL (0.55-1.02)
[2025-04-25] MEDS: Normal Saline 500 ML 1000 ML IV (10:02)
--- NOTE | 2025-04-25 11:26 | HPE_ITS ---
Date of service: 04/25/25 Time of Service: 11:26 Assessment and Plan Assessment and plan (1) Acute renal failure: Status: Acute Assessment and plan: Acute renal failure on chronic stage 4 CKD. She is acidotic and hyperkalemic. She declines transfer to [facility] to consider hemodyalysis. Secondary to blood/fluid loss with hypotension, see below. Fortunately, she has had at least adequate urine output, acidosis slowly improving. Continue supportive care, hydration, monitor I/Os. (2) Hypovolemic shock: Status: Acute Assessment and plan: Non-agressive fluid so far, given an additoinal 500ml fluid and ordered norepinephrine. She was initially ambivalent about intensive care, but decided to take this treatment (3) GI bleeding: Status: Chronic Assessment and plan: She doesn't want more procedures. Bleeding is likely from the same area of ileostomy. Subacute by history and anemia not severe. Follow H/H, tranfuse if large drop with worse bleeding. Can use PPI, though unlikely to help. (4) Cirrhosis: Assessment and plan: Compensated clinically. No known portal HTN or signs of this to suggest risk of esophageal bleed. (5) Paroxysmal atrial fibrillation: Assessment and plan: Continue metoprolol. If rate control needed while on presser, can use esmolol as this is titratable, fortunately currently rate controlled without the additional diltaizem. (6) Hyperkalemia: Status: Acute Assessment and plan: Improved after insulin/glucose and one dose of binder in ED. Giving additional fluids, give additional lokelma. (7) ACP (advance care planning): Status: Acute Assessment and plan: Patient is able to understand risk of non-agressive care including risk of without hemodyalysis. She met with palliative and was able to talk to her sister, which she wanted to do before she dies. Continue following with palliative. COnfirmed DNR/DNI. She may shift to [employer] if she worsens. History of Present Illness History of Present Illness Chief Complaint: lightheaded, bleeding Narrative: This patient is a pleasant 89-year-old female with multiple medical comorbidities including atrial fibrillation/flutter off anticoagulation due to history of bleeding from her ileostomy, hypertension, MASLD cirrhosis, and stage 4 CKD, and pacemaker who presented with 2 days of fatigue, intermittent confusion, and lightheadedness in the setting of 2-3 weeks of blood and increased output in her ileostomy. She has not had chest pain, shortness of breath, or abdominal pain. Her noted she was having a hard time getting up walking in the house this morning and called EMS. She has been eating and drinking. No n/v or diarrhea. She has been taking her metoprolol and gabapentin but not diltiazem. She was admitted in April 2024 for bleeding from her ileostomy at [facility] [place] and had a bleeding vessel at the ileostomy site ligated. She was readmitted in May to have a fluid collection around the ileostomy drained and treated with antibiotics. She has been off anticoagulation since then. She also has stopped her diltiazem. Her discharge creatinine was 1.58. Review of Systems All systems reviewed & are unremarkable except as noted in HPI and below Musculoskeletal Comments: chronic left hip radicular pain, gets injections PFSH All Active Problems (Updated 04/25/25 @ 16:15 by Edwin Escalante) Hypovolemic shock (Acute) Palliative care encounter (Acute) ACP (advance care planning) (Acute) Encounter for hospice care discussion (Acute) Unintentional weight loss (Acute) GI bleeding (Chronic) Hyperkalemia (Acute) Acute renal failure (Acute) PSVT (paroxysmal supraventricular tachycardia) (Acute) At high risk for skin breakdown (Acute) Parastomal ulcer of enterostomy (Acute) Abn react-external stoma (Acute) Elevated serum creatinine (Acute) Chronic pain in left foot (Acute) Medical History (Updated 04/25/25 @ 16:15 by Edwin Escalante) Stage 4 chronic kidney disease H/O malignant neoplasm of colon History of breast cancer CONTRERAS (nonalcoholic steatohepatitis) Cirrhosis Ischemic neuropathy of foot PAD (peripheral artery disease) Pacemaker Hypertension Paroxysmal atrial fibrillation Hypercholesterolemia Surgical History Hemicolectomy (06/30/13) Right, 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 Park @ [facility] [place], 2015-no recurrence Social History Smoking/Tobacco Use Status: Never Smoking risk assessment performed?: Yes Alcohol Intake: never Drug use: Never Substance use type: does not use Housing: house Do you feel safe at home: Yes Do you feel safe in your relationship?: Yes Meds Allergies and Home Medications Allergies Allergy/AdvReac Type Severity Reaction Status Date / Time No Known Allergies Allergy Unverified 04/25/25 04:35 Home Medications ?Medication ?Instructions ?Recorded ?Confirmed ?Type gabapentin 600 mg tablet 600 mg PO BID 09/16/16 04/25/25 History magnesium 250 mg tablet 250 mg PO DAILY #20 tabs 06/04/23 04/25/25 Rx cholecalciferol (vitamin D3) 125 125 mcg PO DAILY 06/11/23 04/25/25 History mcg (5,000 unit) capsule metoprolol succinate 50 mg 50 mg PO DAILY 05/21/24 04/25/25 History tablet,extended release 24 hr diltiazem HCl 120 mg 120 mg PO DAILY #30 caps 06/03/24 04/25/25 Rx capsule,extended release 24 hr Exam Narrative Exam Narrative: GEN: Alert and oriented x 4, though slow to respond at times and does loose her thought process before . She is pleasant and cooperative, gives linear history. No acute distress at rest. HEENT: Head atraumatic. Conjunctiva clear, no icterus. PEERL, EOMI. no rhinorrhea. MMM, OP benign. Neck is supple with no masses or lymphadenopathy, trachea midline LUNGS: CTAB with normal effort CV: RRR with no murmurs, gallops, or rubs. ABD: active bowel sounds, soft, nontender and nondistended. No masses. Ostomy pink with few small clots. Dark red-tinged liquid in bag. EXT: no cyanosis, clubbing, or edema MSK: No joint redness or swelling NEURO: CN 2-12 grossly intact. Normal movement of 4 extremities. Normal speech and coordination. No tremor SKIN: No rashes or open wounds. PSYCH: normal mood and affect Results Labs 04/25/25 13:15 04/25/25 13:15 Labs: Laboratory Results - last 24 hr 04/25/25 04/25/25 04/25/25 05:00 06:48 08:07 WBC 10.81 H RBC 4.62 Hgb 13.2 Hct 39.5 MCV 86 MCH 28.6 MCHC 33.4 RDW 15.7 H Plt Count 107 L MPV 9.5 Immature Gran % 0.3 Neutrophils % 85.5 Lymphocytes % 9.3 Monocytes % 4.4 Eosinophils % 0.0 Basophils % 0.5 Nucleated RBC % 0.0 Absolute Neutrophils 9.24 H Absolute Lymphocytes 1.01 L Absolute Monocytes 0.48 Absolute Eosinophils 0.00 Absolute Basophils 0.05 PT 11.0 INR 1.1 Sodium 134 L 139 Potassium 6.3 H* 4.8 D Chloride 105 110 H Carbon Dioxide 11.9 L 13.2 L Anion Gap 17.1 H 15.8 H BUN 152 H* 148 H* Creatinine 5.3 H* 4.7 H* Est GFR (CKD-EPI 2020) 7.32 8.46 Glucose 140 H 153 H Calcium 10.5 H 9.7 Magnesium 2.0 Total Bilirubin 2.3 H AST 28 ALT 22 Alkaline Phosphatase 79 Total Protein 7.6 Albumin 4.1 Urine Color Yellow Urine Clarity Sl Cloudy Urine pH 5.5 Ur Specific [place] 1.015 Urine Protein 30 H Urine Ketones Negative Urine Blood Small H Urine Nitrite Negative Urine Bilirubin Negative Urine Urobilinogen 0.2 Ur Leukocyte Esterase Large H Urine RBC 5-10 H Urine WBC 20-50 H Ur Epithelial Cells Moderate Urine Crystals Negative Urine Bacteria Many Urine Casts Negative Urine Mucus Negative Urine Other Few Transitional Ur Culture Indicated? No/Sq. Contamination Urine Glucose Negative ABO/Rh A Positive Antibody Screen POSITIVE Antibody Identification Anti-K Crossmatch See Detail Last Vital Signs Temp 35.9 C L 04/25/25 04:27 Pulse 62 04/25/25 11:01 Resp 16 04/25/25 11:01 BP 102/42 L 04/25/25 11:01 Pulse Ox 99 04/25/25 11:01 Time Spent Time spent with Patient: >75 minutes Time was spent: preparing to see the patient(eg.review tests), obtaining and/or reviewing separately otained hiistory, ordering medications,tests, procedures, referring, communicating with other health home health care respiratory therapist, indepentently interpreting results, counseling the patient and care coordination
[2025-04-25 13:29] LABS: HGB 11.4 g/dL (11.2-15.7)
[2025-04-25 13:41] LABS: Anion Gap 14.1 mmol/L (3-11); CO2 14.9 mmol/L (21.0-32.0); Calcium 10.1 mg/dL (8.5-10.1); Chloride 110 mmol/L (98-107); Estimated GFR 8.46 (mL/min/1.73m2); Glucose 146 mg/dL (74-106); Potassium 5.2 mmol/L (3.5-5.1); Sodium 139 mmol/L (136-145)
--- NOTE | 2025-04-25 13:44 | CHAPLAIN ---
Annamarie was resting in bed when I visited. She was admitted through the ED and will meet with Palliative Care. She was ordering her meals from the food packer staff and when the staff mentioned breakfast, Annamarie said she might not live that long. She told me she waiting for another procedure and then to talk with the doctor. Her was in earlier and she suggested that he go home. Their daughter, Iris, also visited and lives nearby but needed to help with a care of a grandson. Annamarie told me that she and her have been for more than70 years, with an anniversary in April. 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 (According to Annamarie's nurse, MARGARITA England, Annamarie's four sons have .) Annamarie talked about how much she loved living and working on the farm even when the days were very long. She said I could have cried for the rest of my life when we sold the farm. She and her live in [place] now. Annamarie was very matter of fact about her prognosis telling me that she's not going to worry about anything I can't change. She said she would leave the worrying up to her . I will continue to visit.
--- NOTE | 2025-04-25 13:53 | CHAPLAIN ---
Additionally, Annamarie's code status is DNR/DNI and she is not interested in dialysis if that is recommended.
[2025-04-25 13:58] LABS: BUN 146 mg/dL (7-18); CREATININE 4.7 mg/dL (0.55-1.02)
[2025-04-25] MEDS: Lactated Ringers 500 ML 250 ML IV (14:12)
[2025-04-25] MEDS: Norepinephrine in D5W 8 MG/250 ML BAG 3.75 MG IV (15:14)
--- NOTE | 2025-04-25 15:22 | W.PALLCONSUL ---
Date of service: 04/25/25 Time of Service: 13:30 History of Present Illness Narrative: Mrs. De Luna is an 89 y/o F currently hospitalized in ICU 2/2 ABBIE, hyperkalemia and GIB; PMHx sig for CKD (stage 4), HLD, HTN, h/o breast and colon cancer (s/p ileostomy 2012), CONTRERAS w/cirrhosis, PAD, PAF - PC consult to review GOC and ensure current POC; today's visit in brief, w/plan for f/u tomorrow - Annamarie is in ICU room alone at time of visit, she admits she is tired and has not slept Hospital Course: presented to [facility] ED early this morning w/CC weakness, lightheaded and bleeding in ileostomy; blood in ostomy present for potentially 3wks, other sxs 24h onset; - of note similar problem (bleeding in ostomy), requiring 9 units PRBC and revision of ostomy; given IVF bolus, hemodynamically stable; BUN 152/5.3, K 6.3; in atrial flutter but BP remaining mornal, IV lopressor given for rate control; renal function improved on 2nd labs; admit inpatient for ongoing management; pt and family report/confirm preference for no dialysis and DNR/I - plan for bolus of LR, may start on norepi if no improvement; Annamarie is tired today, she has just met with Drapery Cutter, her had to go home after visiting all morning; She has never heard of an Advanced Directive; she would want her daughter Iris to be her HCA; she confirms DNR/I and no dialysis she feels like maybe nothing can be done, and that the ship is beginning to sink, she cannot quantify what this means. She is aware she is in ICU and is getting some treatment. She would not want treatments repeatedly tried if no improvement/impact w/first attempts Assessment and Plan Assessment and plan (1) GI bleeding: Status: Chronic (2) Hyperkalemia: Status: Acute (3) Acute renal failure: Status: Acute Assessment and plan: not seeking dialysis - hospice criteria CrCl 7mL/min - at hospice criteria Serum Cr 5.3 - hospice criteria >6 w/DM or 8 w/o eGFR 8.46 - at hospice criteria - comorbid conditions: h/o malignancy, cardiac dz, liver dz - albumin 4.1 - hospice criteria <3.5 - platelet count 107,000 - hospice criteria <25,000 - GIB pending improvement, could be hospice eligible (4) At high risk for skin breakdown: Status: Acute (5) Parastomal ulcer of enterostomy: Status: Acute (6) Stage 4 chronic kidney disease: Assessment and plan: as above w/CKD - additional hospice sxs: uremia, oliguria, intractable hyperkalemia (>7.0 not responsive to tx), HRS, uremic peridcarditis, fluid overload (7) H/O malignant neoplasm of colon: (8) CONTRERAS (nonalcoholic steatohepatitis): Assessment and plan: MELD score 24, 19.6% mortality in 3 mos (9) Unintentional weight loss: Status: Acute Assessment and plan: 170lbs in Jun 2024, currently 131lbs today demonstrating 39lbs weight loss in 9 mos - 23% (10) Encounter for hospice care discussion: Status: Acute Assessment and plan: Big picture - Annamarie is eligible for hospice at this time, see above - added to hospice watch list will continue to review POC tomorrow may consider pivot to comfort directed care and potentially discharge home on hospice, pending family and pt meeting tomorrow (11) ACP (advance care planning): Status: Acute Assessment and plan: reviewed w/Annamarie current tx preferences, including DNR/I and no dialysis reviewed preferences for HCA, reports trusts daughter Iris as HCA; did not complete today d/t concerns w/capacity, will reassess tomorrow reviewed current POC to trial treatments to see if she can return to her baseline, she would want things (like norepi) trialed one time, but has more concerns w/repeated efforts if the ship is sinking, let it sink (12) Palliative care encounter: Status: Acute Assessment and plan: PC will continue to follow closely, plan for f/u visit tomorrow - to review AD and current care preferences will review hospice as appropriate Review of Systems Narrative: as per HPI PFSH All Active Problems (Updated 04/25/25 @ 15:52 by Elyse Silverman NP) Palliative care encounter (Acute) ACP (advance care planning) (Acute) Encounter for hospice care discussion (Acute) Unintentional weight loss (Acute) GI bleeding (Chronic) Hyperkalemia (Acute) Acute renal failure (Acute) PSVT (paroxysmal supraventricular tachycardia) (Acute) At high risk for skin breakdown (Acute) Parastomal ulcer of enterostomy (Acute) Abn react-external stoma (Acute) Elevated serum creatinine (Acute) Chronic pain in left foot (Acute) Medical History Pacemaker Hypercholesterolemia Stage 4 chronic kidney disease H/O malignant neoplasm of colon History of breast cancer CKD (chronic kidney disease), stage III CONTRERAS (nonalcoholic steatohepatitis) Cirrhosis Ischemic neuropathy of foot PAD (peripheral artery disease) Hypertension Paroxysmal atrial fibrillation Surgical History Hemicolectomy (06/30/13) Right, 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 [facility] [place] Social History Smoking/Tobacco Use Status: Never Smoking risk assessment performed?: Yes Alcohol Intake: never Drug use: Never Substance use type: does not use Housing: house Do you feel safe at home: Yes Do you feel safe in your relationship?: Yes Exam Narrative Exam Narrative: General: older adult female, in ICU room, ill appearing; eyes closed, wakes easily to light voice volume HEENT: [id number], MMM, normocephalic, atraumatic Resp: even and unlabored, speaks full sentences, limited by energy; no cough or audible wheeze Psych: tangential ('s mormon preferences/her own), pleasant, cooperative, speech clear; insight/judgment limited Results Last Vital Signs Temp 97.2 F L 04/25/25 11:29 Pulse 62 04/25/25 11:01 Resp 13 04/25/25 11:29 BP 102/42 L 04/25/25 11:01 Pulse Ox 100 04/25/25 11:29 Labs 04/25/25 13:15 04/25/25 13:15 Labs: Laboratory Results - last 24 hr 04/25/25 04/25/25 04/25/25 05:00 06:48 08:07 WBC 10.81 H RBC 4.62 Hgb 13.2 Hct 39.5 MCV 86 MCH 28.6 MCHC 33.4 RDW 15.7 H Plt Count 107 L MPV 9.5 Immature Gran % 0.3 Neutrophils % 85.5 Lymphocytes % 9.3 Monocytes % 4.4 Eosinophils % 0.0 Basophils % 0.5 Nucleated RBC % 0.0 Absolute Neutrophils 9.24 H Absolute Lymphocytes 1.01 L Absolute Monocytes 0.48 Absolute Eosinophils 0.00 Absolute Basophils 0.05 PT 11.0 INR 1.1 Sodium 134 L 139 Potassium 6.3 H* 4.8 D Chloride 105 110 H Carbon Dioxide 11.9 L 13.2 L Anion Gap 17.1 H 15.8 H BUN 152 H* 148 H* Creatinine 5.3 H* 4.7 H* Est GFR (CKD-EPI 2020) 7.32 8.46 Glucose 140 H 153 H Calcium 10.5 H 9.7 Magnesium 2.0 Total Bilirubin 2.3 H AST 28 ALT 22 Alkaline Phosphatase 79 Total Protein 7.6 Albumin 4.1 Urine Color Yellow Urine Clarity Sl Cloudy Urine pH 5.5 Ur Specific [place] 1.015 Urine Protein 30 H Urine Ketones Negative Urine Blood Small H Urine Nitrite Negative Urine Bilirubin Negative Urine Urobilinogen 0.2 Ur Leukocyte Esterase Large H Urine RBC 5-10 H Urine WBC 20-50 H Ur Epithelial Cells Moderate Urine Crystals Negative Urine Bacteria Many Urine Casts Negative Urine Mucus Negative Urine Other Few Transitional Ur Culture Indicated? No/Sq. Contamination Urine Glucose Negative ABO/Rh A Positive Antibody Screen POSITIVE Antibody Identification Anti-K Crossmatch See Detail 04/25/25 13:15 WBC RBC Hgb 11.4 Hct 34.0 L MCV MCH MCHC RDW Plt Count MPV Immature Gran % Neutrophils % Lymphocytes % Monocytes % Eosinophils % Basophils % Nucleated RBC % Absolute Neutrophils Absolute Lymphocytes Absolute Monocytes Absolute Eosinophils Absolute Basophils PT INR Sodium 139 Potassium 5.2 H Chloride 110 H Carbon Dioxide 14.9 L Anion Gap 14.1 H BUN 146 H* Creatinine 4.7 H* Est GFR (CKD-EPI 2020) 8.46 Glucose 146 H Calcium 10.1 Magnesium Total Bilirubin AST ALT Alkaline Phosphatase Total Protein Albumin Urine Color Urine Clarity Urine pH Ur Specific [place] Urine Protein Urine Ketones Urine Blood Urine Nitrite Urine Bilirubin Urine Urobilinogen Ur Leukocyte Esterase Urine RBC Urine WBC Ur Epithelial Cells Urine Crystals Urine Bacteria Urine Casts Urine Mucus Urine Other Ur Culture Indicated? Urine Glucose ABO/Rh Antibody Screen Antibody Identification Crossmatch Time Spent Time Spent with Patient Time Spent(min): 45
[2025-04-25] MEDS: Normal Saline Flush 10 ML SYR IVP ×2 (17:18→17:19)
[2025-04-25] MEDS: Pantoprazole 40 MG VIAL IVP (17:18)
[2025-04-25] MEDS: Lactated Ringers 1,000 ML 75 ML IV ×2 (20:09→22:59)
[2025-04-25] MEDS: Gabapentin 100 MG CAP 200 MG PO (20:35)
[2025-04-25] MEDS: Refresh PLUS Eye Drops 0.4ml 30 EACH (21:19)
[2025-04-26] VITALS (152 sets, daily range): BP systolic 73–132; BP diastolic 30–78; PULSE 55–132; RESP 10–22; TEMP 36.3–36.4; O2SAT 90–100
[2025-04-26] MEDS: Lactated Ringers 250 ML IV (00:35)
--- NOTE | 2025-04-26 00:38 | NUR.NOTE ---
oooo-pt HR up to [address] Ni notified. Ordered one time bolus of LR of 250 cc. Given as ordered.pts hr now 70's with pacer spikes. noted to be in bigeminy for short time.
--- NOTE | 2025-04-26 01:02 | NUR.NOTE ---
0100bolus infused. HR now 62and AV paced. Some bigeminy noted. Norepi down to 2.5 mcg
--- NOTE | 2025-04-26 02:25 | NUR.NOTE ---
0230- pt sleeping soundly now with HR in the 60's and AV paced. freq pvcs. urine output borderline. aware.
[2025-04-26] MEDS: Sodium Zirconium Cyclosilicate 10 GM PKT PO (06:14)
[2025-04-26 06:35] LABS: Abs Immature Grans 0.02 10^3/uL (0.0-0.06); Absolute Basophil Count 0.04 10^3/uL (0.0-0.2); Absolute Eosinophil Count 0.11 10^3/uL (0.0-0.7); Absolute Lymphocyte Count 2.51 10^3/uL (1.2-3.4); Absolute Neutrophil Count 5.01 10^3/uL (1.2-6.7); Basophils % 0.5 %; Eosinophils % 1.3 %; HCT 28.6 % (36.0-46.0); HGB 9.7 g/dL (11.2-15.7); Immature Grans % 0.2 %; Lymphocytes % 30.3 %; MCH 28.5 pg (27.0-33.0); MCHC 33.9 % (32.0-36.0); MCV 84 fL (80-95); MPV 10.2 fL (8.0-11.0); Monocytes % 7.2 %; Neutrophils % 60.5 %; RDW 15.5 % (11.7-14.6); RDW-SD 47.5 fL; WBC 8.29 10^3/uL (4.4-10.8)
[2025-04-26 06:50] LABS: Diff Comment Diff Reviewed; Platelet Count 84 10^3/uL (130-400); RBC Morphology Normal
[2025-04-26 06:52] LABS: ALT 14 U/L (14-59); AST 31 U/L (15-37); Alkaline Phosphatase 55 U/L (46-116); Anion Gap 11.7 mmol/L (3-11); Bilirubin, Total 2.8 mg/dL (0.2-1.0); CO2 15.3 mmol/L (21.0-32.0); Calcium 9.2 mg/dL (8.5-10.1); Chloride 109 mmol/L (98-107); Estimated GFR 10.27 (mL/min/1.73m2); Glucose 105 mg/dL (74-106); Potassium 4.2 mmol/L (3.5-5.1); Sodium 136 mmol/L (136-145); Total Protein 5.5 g/dL (6.4-8.2)
[2025-04-26 06:56] LABS: BUN 128 mg/dL (7-18)
[2025-04-26] MEDS: Normal Saline Flush 10 ML SYR IVP ×2 (08:09→20:31)
--- NOTE | 2025-04-26 08:09 | W.PM.PROGNOT ---
Date of Service Date of service: 04/26/25 Time of Service: 08:09 Assessment and Plan Assessment and plan (1) Acute renal failure: Status: Acute Assessment and plan: Acute renal failure on chronic stage 4 CKD. She was acidotic and hyperkalemic on admission, declined transfer to [facility] to consider hemodyalysis. Secondary to blood/fluid loss with hypotension, see below. Fortunately, she continues adequate urine output, acidosis slowly improving. AG almost closed, bicarb is low but close to baseline with CKD in high teens) Continue supportive care, hydration, monitor I/Os. (2) Hypovolemic shock: Status: Acute Assessment and plan: Started on norepinephrine after 1500ml isotonic, seemed to respond to additional 250ml bolus this morning and off norepi She has h/o moderate , I would like echo to understand if possible cardiogenic component. (3) GI bleeding: Status: Chronic Assessment and plan: She doesn't want aggressive procedures. Bleeding is likely from the area of ileostomy that was bleeding in the past. Subacute by history and anemia not severe. Bleeding visibly resolved this morning. Hemoglobin dropped 3-4units, but also hydration, likely hemoconcentrated on admission with baseline anemia of CKD per history. Started PPI, though less likely gastric source. She would consider limited procedure, will ask for surgery to talk with her about scope options to look for bleeding source. (4) Cirrhosis: Assessment and plan: Compensated clinically. No known h/o varicies but low platelets do suggest portal HTN. I'm not sure this is contributing to bleeding, but consider changing metoprolol to carvedilol to lower this risk when BP more stable. (5) Paroxysmal atrial fibrillation: Assessment and plan: Continue metoprolol for now. Rate now controlled after hydration. (6) Hyperkalemia: Status: Acute Assessment and plan: Improved after binder overnight, acidosis also resolving. Stop lokelma. (7) ACP (advance care planning): Status: Acute Assessment and plan: Patient was able to understand risk of non-agressive care including risk of without hemodyalysis. She met with palliative and was able to talk to her sister, which she wanted to do before she dies. Continue following with palliative. COnfirmed DNR/DNI. She may shift to [employer] if she worsens, but she seems to be stabilizing Will have f/u palliative today, discuss plan going forward if she goes home. Subjective Subjective Patient reports: tolerating liquids well; denies diarrhea, nausea, vomiting, shortness of breath or fever Interval history since last seen: Events: On norepi overnight. Turned off this morning after 250ml bolus LR She is feeling okay. STill tired, hasn't been on her feet. No longer dizzy. No chest pain or abdominal pain. She does feel like she could eat. Exam Narrative Exam Narrative: GEN: Alert and oriented, sitting up in bed, no acute distress at rest. LUNGS: CTAB with normal effort CV: RRR with 3/6 systolic murmur, no gallops, or rubs. ABD: active bowel sounds, soft, nontender and nondistended. No masses. Ostomy pink, brown liquid in bag, no longer visible blood. PSYCH: normal mood and affect Objective Last Vital Signs Temp 36.4 C L 04/26/25 04:05 Pulse 60 04/26/25 06:10 Resp 15 04/26/25 06:10 BP 104/30 L 04/26/25 06:03 Pulse Ox 99 04/26/25 06:10 Laboratory Results - last 24 hr 04/25/25 04/25/25 04/25/25 05:00 08:07 13:15 WBC RBC Hgb 11.4 Hct 34.0 L MCV MCH MCHC RDW Plt Count MPV Immature Gran % Neutrophils % Lymphocytes % Monocytes % Eosinophils % Basophils % Nucleated RBC % Absolute Neutrophils Absolute Lymphocytes Absolute Monocytes Absolute Eosinophils Absolute Basophils RBC Morphology Sodium 139 139 Potassium 4.8 D 5.2 H Chloride 110 H 110 H Carbon Dioxide 13.2 L 14.9 L Anion Gap 15.8 H 14.1 H BUN 148 H* 146 H* Creatinine 4.7 H* 4.7 H* Est GFR (CKD-EPI 2020) 8.46 8.46 Glucose 153 H 146 H Calcium 9.7 10.1 Total Bilirubin AST ALT Alkaline Phosphatase Total Protein Albumin ABO/Rh A Positive Antibody Screen POSITIVE Antibody Identification Anti-K Crossmatch See Detail 04/26/25 04/26/25 05:35 06:20 WBC 8.29 RBC 3.40 L Hgb 9.7 L Hct 28.6 L MCV 84 MCH 28.5 MCHC 33.9 RDW 15.5 H Plt Count 84 L MPV 10.2 Immature Gran % 0.2 Neutrophils % 60.5 Lymphocytes % 30.3 Monocytes % 7.2 Eosinophils % 1.3 Basophils % 0.5 Nucleated RBC % 0.0 Absolute Neutrophils 5.01 Absolute Lymphocytes 2.51 Absolute Monocytes 0.60 Absolute Eosinophils 0.11 Absolute Basophils 0.04 RBC Morphology Normal Sodium Cancelled 136 Potassium Cancelled 4.2 D Chloride Cancelled 109 H Carbon Dioxide Cancelled 15.3 L Anion Gap Cancelled 11.7 H BUN Cancelled 128 H* Creatinine Cancelled 4.0 H* Est GFR (CKD-EPI 2020) Cancelled 10.27 Glucose Cancelled 105 Calcium Cancelled 9.2 Total Bilirubin 2.8 H AST 31 ALT 14 Alkaline Phosphatase 55 Total Protein 5.5 L Albumin 3.0 L ABO/Rh Antibody Screen Antibody Identification Crossmatch Time Spent with Patient Time Spent with Patient: >50 minutes Time was spent: preparing to see the patient(eg.review tests), obtaining and/or reviewing separately otained hiistory, ordering medications,tests, procedures, referring, communicating with other health customer care agent, indepentently interpreting results, counseling the patient and care coordination
[2025-04-26] MEDS: Pantoprazole 40 MG TABCR PO (08:10)
[2025-04-26] MEDS: Gabapentin 100 MG CAP 200 MG PO ×2 (08:10→20:32)
[2025-04-26] MEDS: Metoprolol CR 50 MG TABCR PO (08:10)
--- NOTE | 2025-04-26 08:29 | SCONE_ITS ---
Date of service: 04/26/25 Time of Service: 08:29 Assessment and Plan Assessment and plan (1) Ileum ulcer: Status: Acute Assessment and plan: 89-year-old woman with a long?standing history of stomal bleeding. She was revised last year and it seems like she got about 1 year out of that surgery. This is a really difficult situation with no clear-cut strategy or answers for her problem. On one hand, the stoma could be revised again. She would need to then have another surgical procedure which is something she says she does not want. If we did this, it seems obvious that it would only be temporary until she starts having another bleed from a new ulceration or venous problem in the same location all over again. The benefit that seems obvious would be more time . . . On the other hand, if she really does not want any procedures done and does not want to be in the hospital, then she should consider not coming to the hospital when the bleeding happens and except that this will probably be a life?ending situation at some point in the future. Hard to say exactly when. We can certainly keep transfusing her whenever it happens. And she will probably recover each time. Doing any surgery on her carries significant risk for obvious reasons and, as we are seeing this time, is not a durable or longer- term solution. I do not recommend an open abdominal surgery for remove her ileostomy to a completely different location. I think that is too much surgery for someone as frail as she is. Surgery will follow along and see what the family and patient's goals of care are in discussion with palliative care and the medical team. In the meantime, we should honor DNR/DNI and consideration should be given to no more transfusions if she chooses to be made comfortable. History of Present Illness Narrative: Annamarie is well-known to me. This is a difficult scenario with no straightforward management options. Brief history: She has an end ileostomy. She has had this for years. She has had GI bleeding from this ileostomy for a long time as well. The GI bleeding often comes and goes. In the past it has been severe and she has required many?unit transfusions. The bleeding then stops and is away for a long time until it happens again. To make matters more difficult, she has a large parastomal hernia. The reason that she was having GI bleeding in the past centers around an ulcer found just underneath her ileostomy. The ulcer was missed on multiple colonoscopies through her stoma. The ulcer is just beneath the surface. Because of this finding, we revised her ileostomy just about 1 year ago. That piece was resected and a new ileostomy was brought to the skin level. We did not explore her abdomen cavity. And we did not attempt to do anything with her parastomal hernia. That surgery, which is really not a clear or definitive strategy, worked effectively and she was discharged home. She did have a complication from that surgery and had to have an abscess related to that surgery drained by IR at [facility] ~6 weeks later. She reports that the ostomy has been working fine ever since and she has not had any other problems except for now she has started seeing some bleeding happening again. She tells me that she has been having dreams about heaven and she is ready to go at any point and is expecting such in the near future. She does not want to have any more procedures or surgeries done. In the past we have hypothesized and presumed that there is some degree of portal hypertension and thus venous mesenteric hypertension that is probably playing a role in the severity of the bleeding when it happens. Our hypothesis about the etiology of the ulcer also lies in speculation that it is a mechanical, rubbing problem secondary to her large parastomal hernia. Hard to say. At the time of consultation she is not bleeding. She is DNR and DNI. PFSH All Active Problems (Updated 04/26/25 @ 18:17 by Efren Webb MD) Ileum ulcer (Acute) Hypovolemic shock (Acute) Palliative care encounter (Acute) ACP (advance care planning) (Acute) Encounter for hospice care discussion (Acute) Unintentional weight loss (Acute) GI bleeding (Chronic) Hyperkalemia (Acute) Acute renal failure (Acute) PSVT (paroxysmal supraventricular tachycardia) (Acute) At high risk for skin breakdown (Acute) Parastomal ulcer of enterostomy (Acute) Abn react-external stoma (Acute) Elevated serum creatinine (Acute) Chronic pain in left foot (Acute) Medical History (Updated 04/26/25 @ 18:17 by Efren Webb MD) Pacemaker Hypercholesterolemia Stage 4 chronic kidney disease H/O malignant neoplasm of colon History of breast cancer CONTRERAS (nonalcoholic steatohepatitis) Cirrhosis Ischemic neuropathy of foot PAD (peripheral artery disease) Hypertension Paroxysmal atrial fibrillation Surgical History Hemicolectomy (06/30/13) Right, 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 [facility] [place] Social History Smoking/Tobacco Use Status: Never Smoking risk assessment performed?: Yes Alcohol Intake: never Drug use: Never Substance use type: does not use Housing: house Do you feel safe at home: Yes Do you feel safe in your relationship?: Yes Exam Narrative Exam Narrative: General: Elderly, somewhat weak but otherwise interactive and friendly and sweet Neuro: Alert and oriented x 3 Psych: Good mood and affect, good insight and understanding Abdomen: Soft, nondistended and nontender. Her ileostomy is pink and producing liquid stool. There is no blood in it at this time. Results Last Vital Signs Temp 97.5 F L 04/26/25 04:05 Pulse 60 04/26/25 06:10 Resp 15 04/26/25 06:10 BP 104/30 L 04/26/25 06:03 Pulse Ox 99 04/26/25 06:10 Labs 04/26/25 06:20 04/26/25 06:20 Labs: Laboratory Results - last 24 hr 04/25/25 04/25/25 04/25/25 05:00 08:07 13:15 WBC RBC Hgb 11.4 Hct 34.0 L MCV MCH MCHC RDW Plt Count MPV Immature Gran % Neutrophils % Lymphocytes % Monocytes % Eosinophils % Basophils % Nucleated RBC % Absolute Neutrophils Absolute Lymphocytes Absolute Monocytes Absolute Eosinophils Absolute Basophils RBC Morphology Sodium 139 139 Potassium 4.8 D 5.2 H Chloride 110 H 110 H Carbon Dioxide 13.2 L 14.9 L Anion Gap 15.8 H 14.1 H BUN 148 H* 146 H* Creatinine 4.7 H* 4.7 H* Est GFR (CKD-EPI 2020) 8.46 8.46 Glucose 153 H 146 H Calcium 9.7 10.1 Total Bilirubin AST ALT Alkaline Phosphatase Total Protein Albumin ABO/Rh A Positive Antibody Screen POSITIVE Antibody Identification Anti-K Crossmatch See Detail 04/26/25 04/26/25 05:35 06:20 WBC 8.29 RBC 3.40 L Hgb 9.7 L Hct 28.6 L MCV 84 MCH 28.5 MCHC 33.9 RDW 15.5 H Plt Count 84 L MPV 10.2 Immature Gran % 0.2 Neutrophils % 60.5 Lymphocytes % 30.3 Monocytes % 7.2 Eosinophils % 1.3 Basophils % 0.5 Nucleated RBC % 0.0 Absolute Neutrophils 5.01 Absolute Lymphocytes 2.51 Absolute Monocytes 0.60 Absolute Eosinophils 0.11 Absolute Basophils 0.04 RBC Morphology Normal Sodium Cancelled 136 Potassium Cancelled 4.2 D Chloride Cancelled 109 H Carbon Dioxide Cancelled 15.3 L Anion Gap Cancelled 11.7 H BUN Cancelled 128 H* Creatinine Cancelled 4.0 H* Est GFR (CKD-EPI 2020) Cancelled 10.27 Glucose Cancelled 105 Calcium Cancelled 9.2 Total Bilirubin 2.8 H AST 31 ALT 14 Alkaline Phosphatase 55 Total Protein 5.5 L Albumin 3.0 L ABO/Rh Antibody Screen Antibody Identification Crossmatch
--- NOTE | 2025-04-26 08:31 | INITIAL_ITS ---
Date of service: 04/26/25 Time of Service: 08:31 Care Management Initial Assmt Initial Assessment Reason for Hospitalization: ABBIE Functional Status/Living Situation Patient Presentation: Annamarie was awake and lying in bed when CM met with her. She is pleasant, soft spoken and easily engages in conversation. Annamarie shared with this CM that she doesn't have much time on this earth and expresses that she is thankful for her family. Per pt, her Daughter Iris and BOUBACAR Burch have offered to care for in her own home, adding that Jacqueline' sister recently so the two are familiar with the process. In addition, Annamarie identified that she wants to be cremated and her is not at the hospital at the moment because he is making the arrangements. Palliative is planning to meet with Annamarie and her this afternoon and if her goals align, and caregiver support is available Annamarie will have the option to admit to hospice services. She would be interested in a hospital bed, bed side table and commode. CM reviewed with REJI Pappas from Palliative and will continue to follow and support discharge needs when plan is established. Town of Residence: [place] Resides with: Spouse (Mayur) Significant Other/Family: Local Natural Supports: Mayur and Daughter and son in law, Iris and Hipolito Rivas Employment Status: Retired (Worked at [employer] for 17 years) Instrumental Activities of Daily Living (ADLs): Independent Medications Medication Management: No Issues/Barriers identified Physical Functioning/Mobility Assistive Device: 4WW Advance Directives Advance Directives: Do you have an Advance Directive: N 04/30/23 08:38 AD On File at [facility]: N 04/30/23 08:38 Date Asked 01/02/25 01/02/25 13:16 AD Date Reviewed COLST On File at [facility] COLST Date Scanned Code Status Resuscitation Status DNR/DNI Portal Pt does not currently have a portal and education provided: Yes Insurance Coverage/Financial Issues Insurance: IRA Lynn [facility] Adv - [id number] Care Team Visit Care Team Role Provider Type Dede Miller Primary Care Provider NON-[facility] STAFF PHYSICIAN Miriam Saavedra MD Other Providers NON-[facility] STAFF PHYSICIAN HUNTER Oglesby Other Providers PHYSICIANS ASSISTANT Paulo Carm[facility] Other Providers [facility] STAFF PHYSICIAN Paulo Carmichael [facility] Other Providers NON-[facility] STAFF PHYS IVON Delgado, DO Other Providers CONSULTING PHYSICIAN Jovanni Nunes MD Other Providers [facility] STAFF PHYSICIAN Efren Webb MD Other Providers [facility] STAFF PHYSICIAN Annamarie Guzman MD Other Providers [facility] STAFF PHYSICIAN Melanie Hamilton, DO Other Providers CONSULTING PHYSICIAN Gilberto Renteria MD Other Providers CONSULTING PHYSICIAN Carson Roldan MD Other Providers [facility] STAFF PHYSICIAN Yashira Khan, DO Other Providers OSTEOPATHIC DOCTOR Edwin Rangel MD Emergency Provider [facility] STAFF PHYSICIAN Edwin Escalante Admit Provider [facility] STAFF PHYSICIAN Attending Provider Discharge Potential Discharge Needs: PCP F/U Appt and Surgical F/U Appt Anticipated Barriers to Discharge: None Identified Patient/Family Education Needs: Review discharge instructions, discuss Ask Me Three Transportation: Private vehicle Plan: Anticipate, Annamarie will return home once medically cleared, possibly with a plan to admit to hospice services. She will be driven home via private vehicle by family. She will follow up with community providers and her discharge plan of care. CM will continue to follow. Social Determinants of Health Screening Social Determinants of health last assessed in clinic: 04/26/25 Will the Patient Participate in the Screening?: Yes Do you worry about having a steady place to live?: yes What is your living situation today?: I have housing today, but am worried about losing it Problems where you live: no known problems In the past 12 months, have you had to go without electric, gas, oil or water in your home?: no 1. Within the past 12 months, we worried whether our food would run out before we got money to buy more.: Never true 2. Within the past 12 months, the food we bought just didn't last and we didn't have money to get more.: Never true Has lack of transportation kept you from medical appointments or from doing things needed for daily living?: no Has anyone in your life made you feel unsafe or unsupported?: no How hard is it for you to pay for the very basics like food, housing, medical care, and heating? Would you say it is:: Not hard at all Do you want help finding or keeping work or a job?: I do not need or want help If for any reason you need help with day-to-day activities such as bathing, preparing meals, shopping, managing finances, etc., do you get the help you need?: I get all the help I need How often do you feel lonely or isolated from those around you?: Rarely Do you speak a language other than Macedonian at home?: No Does the patient want assistance with any of the above?: No Health Related Social Needs Health related social needs: housing instability, housed, with risk of homelessness (Z59.811) and feeling lonely/isolated (Z60.8) Health related social needs details: n/a PFSH All Active Problems (Updated 04/26/25 @ 08:45 by Edwin Escalante) Hypovolemic shock (Acute) Palliative care encounter (Acute) ACP (advance care planning) (Acute) Encounter for hospice care discussion (Acute) Unintentional weight loss (Acute) GI bleeding (Chronic) Hyperkalemia (Acute) Acute renal failure (Acute) PSVT (paroxysmal supraventricular tachycardia) (Acute) At high risk for skin breakdown (Acute) Parastomal ulcer of enterostomy (Acute) Abn react-external stoma (Acute) Elevated serum creatinine (Acute) Chronic pain in left foot (Acute) Medical History (Updated 04/26/25 @ 08:45 by Edwin Escalante) Pacemaker Hypercholesterolemia Stage 4 chronic kidney disease H/O malignant neoplasm of colon History of breast cancer CONTRERAS (nonalcoholic steatohepatitis) Cirrhosis Ischemic neuropathy of foot PAD (peripheral artery disease) Hypertension Paroxysmal atrial fibrillation Surgical History Hemicolectomy (06/30/13) Right, 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 Park @ [facility] [place]no recurrence Social History Smoking/Tobacco Use Status: Never Smoking risk assessment performed?: Yes Alcohol Intake: never Drug use: Never Substance use type: does not use Housing: house Do you feel safe at home: Yes Do you feel safe in your relationship?: Yes
[2025-04-26] MEDS: Lactated Ringers 1,000 ML 75 ML IV ×2 (08:32→20:35)
--- NOTE | 2025-04-26 10:58 | PHA.REVIEW2 ---
Pharmacy Admission Review Admission Clinical Review Admission Pharmacy Review: Hypovolemic shock (Acute) Palliative care encounter (Acute) ACP (advance care planning) (Acute) Encounter for hospice care discussion (Acute) Unintentional weight loss (Acute) Hyperkalemia (Acute) Acute renal failure (Acute) At high risk for skin breakdown (Acute) Parastomal ulcer of enterostomy (Acute) No Known Allergies Allergy (Unverified 04/25/25 04:35) Resuscitation Status DNR/DNI Height 4 ft 11 in Weight 66.9 kg Comments Comments/Follow Ups: palliative care consult / possible hospice discussions per morning meeting Pharmacy Admission Review Renal Dosing Renal Dosing: BUN 128 mg/dL (7-18) H* 04/26/25 06:20 Creatinine 4.0 mg/dL (0.55-1.02) H* 04/26/25 06:20 Medications needing adjustments: Reviewed (CrCl 10.2 mL/min, BUN decreased from 146 and SCr decreased from 4.7) List of meds needing interventions: ABBIE on CKD stage 4. Current medications are okay Anticoagulation Anticoagulation: Hgb 9.7 g/dL (11.2-15.7) L 04/26/25 06:20 Hct 28.6 % (36.0-46.0) L 04/26/25 06:20 Plt Count 84 10^3/uL (130-400) L 04/26/25 06:20 INR 1.1 (0.9-1.1) 04/25/25 05:00 Creatinine 4.0 mg/dL (0.55-1.02) H* 04/26/25 06:20 DVT Prophylaxis: Reviewed (SCDs/TEDs - GI bleed, Hgb decreased from 11.4, PLT count decreased from 107) Relevant Labs Relevant Labs: Sodium 136 mmol/L (136-145) 04/26/25 06:20 Potassium 4.2 mmol/L (3.5-5.1) D 04/26/25 06:20 Chloride 109 mmol/L (98-107) H 04/26/25 06:20 Magnesium 2.0 mg/dL (1.8-2.4) 04/25/25 05:00 Electrolytes, C-Reactive P, ESR: Reviewed (Potassium down from 5.2 - Lokelma order discontinued this morning) Cardiac Review Cardiac Review: Blood Pressure 93/47 0900 Blood Pressure 106/56 0801 Blood Pressure 90/49 0717 Blood Pressure 96/71 0701 Blood Pressure 104/30 0603 Blood Pressure 105/49 0500 Blood Pressure 91/47 0401 Blood Pressure 86/46 0302 Blood Pressure 87/45 0231 BP, HR, EF%: Reviewed (HR ranging high 50s to low 60s) List meds needing interventions: Has order for metoprolol XL 50mg daily. Was on norepinephrine infusion which was stopped this AM - order still active. Reach out to provider to discontinue if she remains off it by tomorrow. QTc Review QTc: Reviewed (445 from 04/21/25) IV to PO Switch IV Medications: Reviewed Home Meds Home Med List reviewed: Reviewed Relevent Home Meds Not ordered & why?: diltiazem (per home med list patient reports that she is not taking) Current Meds Current Medication Order Review: Intervened Comments: Changed IV ED access order Comments Comments/Follow Ups: palliative care consult / possible hospice discussions per morning meeting
--- NOTE | 2025-04-26 14:12 | W.PALPGNOTE ---
Date of service: 04/26/25 Time of Service: 13:15 Assessment and Plan Assessment and plan (1) GI bleeding: Status: Chronic (2) Hyperkalemia: Status: Acute (3) Acute renal failure: Status: Acute Assessment and plan: not seeking dialysis - hospice criteria CrCl 10 today, was 7mL/min yest - at hospice criteria *note her documented weight changed from 131lb to 147lbs yest to today Serum Cr 4.0, down from yesterday - hospice criteria >6 w/DM or 8 w/o eGFR 10.27, previously 7 - hospice criteria <10 - comorbid conditions: h/o malignancy, cardiac dz, liver dz - albumin 3.0, down from yesterday - at hospice criteria - platelet count 84,000, down from yesterday 107,000 - hospice criteria <25,000 - GIB pending improvement, could be hospice eligible (4) At high risk for skin breakdown: Status: Acute (5) Parastomal ulcer of enterostomy: Status: Acute (6) Stage 4 chronic kidney disease: Assessment and plan: as above w/CKD - additional hospice sxs: uremia, oliguria, intractable hyperkalemia (>7.0 not responsive to tx), HRS, uremic peridcarditis, fluid overload (7) H/O malignant neoplasm of colon: (8) CONTRERAS (nonalcoholic steatohepatitis): Assessment and plan: MELD score 25, 19.6% mortality in 3 mos - unchanged from yesterday (9) Unintentional weight loss: Status: Acute Assessment and plan: 170lbs in Jun 2024, today's weight 147lbs, different from yesterdays 131lbs demonstrating 23lbs weight loss in 9 mos - 13.5% (10) Encounter for hospice care discussion: Status: Acute Assessment and plan: Big picture - Annamarie is eligible for hospice at this time, see above - added to hospice watch list - may continue to consider pivot to comfort directed care or discharge home on hospice if pt desires Hospice will need to be alerted as early as possible to have DME ordered for delivery, presumably she will need this on arrival home - recommend PT consult to determine discharge equipment if on hospice or for HH referral if no hospice current known DME needs: hospital bed, bedside table, commode (11) ACP (advance care planning): Status: Acute Assessment and plan: Annamarie requested no paperwork completed today. She answers I don't know when asked about whom she would want to be HCA or who she identified yesterday. Annamarie confirms DNR/I status, she is okay w/being in the hospital, is unsure if she would want to return, preference to be home and spend time with family. reviewed hospice supports in home to honor her life, remain home and focus on quality of life; reviewed how hospice would be there to provide in home support, equipment, education and assistance for her and her family - she denies hospice today bc her daughter and BOUBACAR can take care of her; denies PC request to call Iris to review (12) Palliative care encounter: Status: Acute Assessment and plan: PC will continue to follow closely, plan for f/u Thursday w/Manju Urban - recommend hospice on discharge, if denies or improves to not being eligible recommend PT/RN/OT left PC number in ICU room w/note to Iris to call PC - reviewed w/nursing and CM if contact Iris to promote home on hospice and encourage calling PC for additional info PRN Subjective Subjective Interval history since last seen: Annamarie remains hospitalized 2/2 ABBIE; Mayur at bedside (extremely [place]) per staff: labs are slightly better, leveling out; surgery consult this morning recommended no repeat scope for GIB investigation, see note - she is off norepi as of this morning, BPs remain soft, scheduled for ECHO today - w/CM earlier today she indicated she'd like to be home with daughter and BOUBACAR taking care of her for EOL, she feels she is dying sooner rather than later Annamarie initially does not want to engage with PC today. she does not want to complete any paperwork. She denies offer for PC to call Iris, x2 Her goal is to return home. However, she is okay w/staying in hospital receiving current care at this time. Biggest goal: spend time with family; biggest worry: I don't worry about anything, then expresses concerns w/sending checks/finances - has not thought more about HCA documentation, I don't know - confirms she does not want invasive intervention like CPR or intubation; has not thought about artificial nutrition/tubes before, unsure if she would want a procedure, would want to avoid those things as much as possible - Does not feel she needs hospice at home because her daughter/BOUBACAR can take care of her Annamarie and Mayur are celebrating their 71st wedding anniversary on 05/04, both are hopeful she will still be here for this. they recently visited her sister Juanita in [place], which was a nice visit - they have outlived most to all of their friends and family - they both hope they could quickly and peacefully in their sleep Exam Narrative Exam Narrative: General: older adult female, in ICU room, ill appearing; engaging w/ on arrival; no acute distress HEENT: [place], MMM, normocephalic, atraumatic Resp: even and unlabored, speaks full sentences, limited by energy; no cough or audible wheeze Psych: pleasant, cooperative, speech clear; refuses to answer, mostly around ACP conversations, answers I don't know often; insight/judgment limited - I am open minded to procedures I am not interested in procedures - I am not ready to I don't know if I'll be there for that, I think I'll be Objective Last Vital Signs Temp 97.3 F L 04/26/25 07:15 Pulse 61 04/26/25 13:40 Resp 17 04/26/25 13:40 BP 92/53 L 04/26/25 13:01 Pulse Ox 97 04/26/25 13:40 Laboratory Results - last 24 hr 04/26/25 04/26/25 05:35 06:20 WBC 8.29 RBC 3.40 L Hgb 9.7 L Hct 28.6 L MCV 84 MCH 28.5 MCHC 33.9 RDW 15.5 H Plt Count 84 L MPV 10.2 Immature Gran % 0.2 Neutrophils % 60.5 Lymphocytes % 30.3 Monocytes % 7.2 Eosinophils % 1.3 Basophils % 0.5 Nucleated RBC % 0.0 Absolute Neutrophils 5.01 Absolute Lymphocytes 2.51 Absolute Monocytes 0.60 Absolute Eosinophils 0.11 Absolute Basophils 0.04 RBC Morphology Normal Sodium Cancelled 136 Potassium Cancelled 4.2 D Chloride Cancelled 109 H Carbon Dioxide Cancelled 15.3 L Anion Gap Cancelled 11.7 H BUN Cancelled 128 H* Creatinine Cancelled 4.0 H* Est GFR (CKD-EPI 2020) Cancelled 10.27 Glucose Cancelled 105 Calcium Cancelled 9.2 Total Bilirubin 2.8 H AST 31 ALT 14 Alkaline Phosphatase 55 Total Protein 5.5 L Albumin 3.0 L
--- NOTE | 2025-04-26 17:03 | CHAPLAIN ---
Annamarie had just finished talking with her sister in [place] when I visited this afternoon. She said her sister was happy to hear Annamarie sounding better than the last time they spoke. Annamaire mentioned that Elyse Silverman NP, from [facility]iative [facility], and visited earlier and said Annamarie would be eligible for Hospice when she goes home. Annamarie said she wasn't sure that she is interested in hospice because she doesn't think she'll live very long after going home. She also talked about needing to take care of her check book because Mayur doesn't know how. She also talked about her four sons, two who in accidents, one who of cancer and a fourth who lives in [place] and is not in touch with Annamarie and Mayur as he got in trouble and left. Many of Annamarie friends have also , although Annamarie said she didn't have close girlfriends ever. She is feeling okay and is comfortable. When I said I'd check in with her tomorrow, she said if I'm still here. She has been very matter of fact about the idea that she is possibly dying and has said things like, if the ship is sinking, we should let it go.
[2025-04-27] VITALS (22 sets, daily range): BP systolic 75–100; BP diastolic 36–72; PULSE 59–141; RESP 12–20; TEMP 36–37; O2SAT 97–100
--- NOTE | 2025-04-27 | DI.US_ITS ---
APPROVED REPORT EXAM: Comprehensive 2D, Doppler, and color-flow Echocardiogram Patient Location: In-Patient Room/Bed: [id number] [place] Subject Matter Expert: Aysha White RDCS (AE) Indications: Hypotension, aortic stenosis Other Information Study Quality: Adequate. Technically limited study due to inability to position patient exam done sup [facility] bedside ICU. Conclusion Normal left ventricular wall thickness and chamber size. Ejection fraction is 60%. There are no seg mental wall motion abnormalities Normal right ventricular size and function Both atria are normal in size Device lead noted in the right heart Aortic valve is sclerotic and probably trileaflet. There is moderate aortic stenosis. Peak gradient is 44, mean 25 mmHg. Calculated aortic valve area is 1.1 cm??. There is trace aortic regurgitation Mild mitral annular calcification. Trace mitral regurgitation Estimated right ventricular systolic pressure is 32 mmHgyu Wall motion Left Ventricle The left ventricle is normal size. The left ventricular systolic function is normal. The left ventric ular ejection fraction is within the normal range. There is normal left ventricular wall thickness. T here is normal LV segmental wall motion. There is no ventricular septal defect visualized. LVEF is 60 %. Right Ventricle The right ventricle is normal size. The right ventricular systolic function is normal. Pacemaker lead is present in the right ventricle. Atria The left atrium size is normal. The right atrium size is normal. The interatrial septum is intact wit h no evidence for an atrial septal defect. Aortic Valve Aortic valve is calcified. Number of aortic valve leaflets could not be assessed. Moderate aortic olga nosis. Peak aortic valve gradient is 44.07mmHg. Highest mean aortic valve gradient is 24.85mmHg. Calc ulated MIKO by the continuity equation is 1.3cm2. Trace aortic regurgitation. Mitral Valve Mild mitral annular calcification. No evidence of mitral valve stenosis. Trace mitral regurgitation. Tricuspid Valve The tricuspid valve is normal in structure. There is no tricuspid valve stenosis. Mild tricuspid regu rgitation. The RVSP is 32.1 mmHg. Pulmonic Valve The pulmonary valve is normal in structure. There is no pulmonic valvular stenosis. There is no pulmo nichol valvular regurgitation. Great Vessels The aortic root is normal in size. The ascending aorta is normal in size. Aortic arch is not well vis ualized. IVC is normal in size and collapses >50% with inspiration. Pericardium There is no pericardial effusion. 2D Dimensions IVSD d PLAX 0.87 cm F: 0.6-1.0 Ao Root d 2.48 cm F: 2.7 - 3.3 LVPW d PLAX 0.89 cm F: 0.6 - 1.0 Ao Asc Diam d 2.91 cm F: 2.3 - 3.1 LVID d PLAX 4.03 cm F: 3.8 - 5.2 LVDs 2.77 cm F: 2.2 - 3.5 LV EF Teichholz 59.9 % FS 31.45 % LV EDV (Teich) 71.4 mL LV ESV (Teich) 28.7 mL M-Mode TAPSE 1.75 cm (M/F) >1.7 Auto EF LV EDV A4C 79.7 mL LV EDV A2C 84.2 mL LV EDV BP 81.7 mL LV ESV A4C 31.7 mL LV ESV A2C 35.1 mL LV ESV BP 33.3 mL LVEF(%) A4C 60.2 % LVEF(%) A2C 58.3 % LVEF(%) BP 59.3 % LV SV A4C 48.0 ml LV SV A2C 49.1 ml LV SV BP 48.5 ml LV CO A4C 2.9 L/min LV CO A2C 2.9 L/min LV CO BP 2.9 L/min HR A4C 59.80 BPM HR A2C 59.90 BPM LV EDV Index (BP) LA Volume LA Length A4C 5.5 cm LA Length A2C 5.6 cm LA Area A4C s 14.79 cm2 LA Area A2C s 16.66 cm2 LA Vol A4C A-L 33.78 mL LA Vol A2C A-L 41.93 mL LA Vol Biplane A-L 38.0 mL LA Vol/BSA A4C A-L LA Vol/BSA A2C A-L LA Vol/BSA BP A-L 23.5 mL/m2 LA Vol A4C MOD 32.4 mL LA Vol A2C MOD 39.4 mL LA Vol BP MOD 35.9 mL RA Volume RA Area A4C 14.9 cm2 RA ESV A4C (A-L) 36.8mL RA Vol/BSA A4C A-L RA Length A4C 5.1 cm RA ESV A4C (MOD) 34.1mL LV Diastology MV E' medial 0.087 (>0.07 m/s) MV E Vmax 0.86 (0.4-1.3 m/s) MV E/E' MED 9.86 (<14) MV A Vmax 0.95 (0.4-1.3 m/s) MV E' lateral 0.077 (>0.1 m/s) E/A Ratio 0.9 MV E/E' LAT 11.12 (<14) MV E' Average 0.082 m/s MV E/E'(average) 10.45 Aortic Valve AoV Vmax 3.32 m/s LVOT Vmax 1.21 m/s AoV Peak Grad 44.1 mmHg LVOT Peak Grad 5.8 mmHg AoV Area (Vmax) 1.10 cm2 LVOT VTI 0.322 m AoV VTI 0.756 m LVOT Mean Grad 3.9 mmHg AoV Mean Singh. 2.37 m/s LVOT SV 97.31 mL AoV Mean Grad 24.9 mmHg LVOT Diam s 1.95 cm AoV Area (VTI) 1.29 cm2 AV Regurg Peak Gr. 44.07 mmHg Velocity Ratio 0.36 Mitral Valve MV DT 244 (160-240 msec) MV Vmax TIPS 1.01 m/s MV Mean Grad 1.6 (<2mmHg) MV VTI 0.363 m Pulmonary Valve PV Vmax 1.09 (0.5-1.5 m/s) RVOT Vmax 0.85 m/s PV Peak Grad 4.7 mmHg RVOT Peak Gr. 2.9 mmHg PV Mean Singh 0.73 m/s RVOT VTI 0.207 m PV Mean Grad 2.5 mmHg RVOT Mean Gr. 1.8 mmHg Tricuspid Valve RA Pressure 3.00 mmHg TR Vmax 2.70 m/s TV S' 0.15 m/s TR Peak Grad 29.1 mmHg RVSP (TR) 32.1 mmHg
[2025-04-27 06:44] LABS: HCT 24.9 % (36.0-46.0); MCH 28.7 pg (27.0-33.0); MCHC 33.7 % (32.0-36.0); MCV 85 fL (80-95); MPV 10.7 fL (8.0-11.0); RBC 2.93 10^6/uL (3.93-5.22); RDW 15.3 % (11.7-14.6); RDW-SD 47.6 fL; WBC 3.77 10^3/uL (4.4-10.8)
[2025-04-27 06:59] LABS: Anion Gap 11.7 mmol/L (3-11); CO2 17.3 mmol/L (21.0-32.0); CREATININE 3.4 mg/dL (0.55-1.02); Calcium 9.2 mg/dL (8.5-10.1); Chloride 109 mmol/L (98-107); Estimated GFR 12.48 (mL/min/1.73m2); Glucose 83 mg/dL (74-106); Potassium 4.3 mmol/L (3.5-5.1); Sodium 138 mmol/L (136-145)
[2025-04-27 07:02] LABS: BUN 102 mg/dL (7-18)
[2025-04-27 07:03] LABS: HGB 8.4 g/dL (11.2-15.7)
[2025-04-27 07:04] LABS: Platelet Count 66 10^3/uL (130-400)
[2025-04-27] MEDS: Gabapentin 100 MG CAP 200 MG PO ×2 (08:08→21:56)
[2025-04-27] MEDS: Pantoprazole 40 MG TABCR PO (08:08)
[2025-04-27] MEDS: Metoprolol CR 50 MG TABCR PO (08:10)
[2025-04-27] MEDS: Normal Saline Flush 10 ML SYR IVP ×2 (08:11→21:57)
--- NOTE | 2025-04-27 08:30 | RT.EKG_ITS ---
APPROVED REPORT Exam: Resting ECG Reason for Exam: svt Patient Location: I HR:139 bpm ECG Measurements Heart Rate 139 AXIS ND [id number] P 0 QRSd 113 QRS -63 QT 338 T 95 QTc 514 Conclusion Probable atrial flutter Incomplete RBBB and LAFB...axis(240,-40), S>R II III aVF Consider anterior infarct...Q >30mS in V2-V5 Repolarization abnormality, prob rate related...ST dep, T neg, tachycardia
--- NOTE | 2025-04-27 08:33 | W.PM.PROGNOT ---
Date of Service Date of service: 04/27/25 Time of Service: 08:33 Assessment and Plan Assessment and plan (1) Parastomal ulcer of enterostomy: Status: Suspected Assessment and plan: 89-year-old woman with stomal bleeding as a long, chronic problem on/off. She endorses that this is the first bleeding event since the revision surgery a year ago which was done for an ulcer in her stomal tissue. The management here is basically driven by the patient and familiy's goals of care. Revising the ostomy again can always be considered, but it would be another surgical procedure which carries obvious risk as well as an unclear durability since the same problem is already back, now, only 1 year later. Historically the bleeding has always been paroxysmal, responds?well to blood transfusion and then is not a problem again for some time. This is the first bleed since the revision surgery last year. There is probably some, possibly unrealistic, optimism that maybe she will not have another bleed for many months. Surgery signing off at this time. Call us back as needed. I think the patient, and the family, are well?aware of the various options and strategies since they have been in this situation many times in the past and the same considerations and options have been weighed. Probably the most important thing to consider is that this is almost certainly going to happen again, at some point, and that reality is what needs decision-making now, rather than in the moment. 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 . . then they need to consider that bringing her to the hospital will result in blood transfusions and everyone asking the same questions all over again. I discussed all of this with Dr. Escalante and the patient, at the bedside. Subjective Subjective Interval history since last seen: There has not been any more bleeding overnight. She is eating regular food, quite happily, at the bedside. She had good discussions with palliative care consultation yesterday. Unclear exactly what the long-term and definitive decisions will be. Objective Last Vital Signs Temp 97.9 F 04/27/25 07:30 Pulse 59 L 04/27/25 07:34 Resp 15 04/27/25 07:34 BP 100/43 L 04/27/25 07:34 Pulse Ox 100 04/27/25 07:34 Laboratory Results - last 24 hr 04/27/25 06:22 WBC 3.77 L RBC 2.93 L Hgb 8.4 L Hct 24.9 L MCV 85 MCH 28.7 MCHC 33.7 RDW 15.3 H Plt Count 66 L MPV 10.7 Sodium 138 Potassium 4.3 Chloride 109 H Carbon Dioxide 17.3 L Anion Gap 11.7 H BUN 102 H* Creatinine 3.4 H Est GFR (CKD-EPI 2020) 12.48 Glucose 83 Calcium 9.2 Time Spent with Patient Time Spent with Patient: 25-34 minutes Time was spent: preparing to see the patient(eg.review tests), obtaining and/or reviewing separately otained hiistory, referring, communicating with other health aged or disabled care worker, indepentently interpreting results, counseling the patient and care coordination
--- NOTE | 2025-04-27 08:38 | CMPROGNOTE_ITS ---
Date of service: 04/27/25 Time of Service: 08:38 Care Management Progress Note Progress Note Text Progress Note Text: Annamarie was lying in bed, visiting with her , Mayur, when CM met with her today. Both were very pleasant. Annamarie is undecided about hospice, but is eager to go home tomorrow. PT was recommended, but Annamarie is unsure if she wants it. This was strongly encouraged by CM. CM encouraged her to talk about this with Mayur. Annamarie and Mayur stated that their daughter lives nearby and is very helpful. Discharge Potential Discharge Needs: PCP F/U Appt Anticipated Barriers to Discharge: None Identified Patient/Family Education Needs: Review discharge instructions, discuss Ask Me Three Transportation: Private vehicle Plan: Anticipate, Annamarie will return home once medically cleared, it is unsure if she will accept hospice services. If no to hospice, she will have new HC services of SN and PT. She will be driven home via private vehicle by family. She will follow up with community providers and her discharge plan of care. CM will continue to follow. Social Determinants of Health Screening Social Determinants of health last assessed in clinic: 04/27/25 Will the Patient Participate in the Screening?: Yes Do you worry about having a steady place to live?: yes What is your living situation today?: I have housing today, but am worried about losing it Problems where you live: no known problems In the past 12 months, have you had to go without electric, gas, oil or water in your home?: no 1. Within the past 12 months, we worried whether our food would run out before we got money to buy more.: Never true 2. Within the past 12 months, the food we bought just didn't last and we didn't have money to get more.: Never true Has lack of transportation kept you from medical appointments or from doing things needed for daily living?: no Has anyone in your life made you feel unsafe or unsupported?: no How hard is it for you to pay for the very basics like food, housing, medical care, and heating? Would you say it is:: Not hard at all Do you want help finding or keeping work or a job?: I do not need or want help If for any reason you need help with day-to-day activities such as bathing, preparing meals, shopping, managing finances, etc., do you get the help you need?: I get all the help I need How often do you feel lonely or isolated from those around you?: Rarely Do you speak a language other than Yakut at home?: No Does the patient want assistance with any of the above?: No Health Related Social Needs Health related social needs: housing instability, housed, with risk of jaimie elessness (Z59.811) and feeling lonely/isolated (Z60.8) Health related social needs details: n/a
--- NOTE | 2025-04-27 09:31 | TELEFU_ITS ---
Date of service: 04/27/25 Time of Service: 09:31 Nutrition Note NOTE: Myrna is a pleasant 89yo woman being treated in ICU for GI bleed, hperkalemia, acute renal failure, parastomal ulcer with bleeding. Hx of CKD4, malignant colon neoplasm. She has experienced weight loss through all of her chronic and acute conditions with an estimated 4-5kg loss over the last 2 years. Her albumin and total protein labs were low yesterday. From provider notes appears Myrna and family are working through decision making for adjunct faculty for medical terminology goals of care/hospice/comfort measures. She advanced from clear liquid diet order yesterday to heart healthy - I did liberalize this to low sodium to support her po intake. She is offered high kcal/protein ons drinks at meals from staff as she desires. She reports no food allergies / special needs from kitchen - will have items such as meats, estonian toast etc... cut/modified for easier manageability. Will monitor myrna's intake, weight, nutrition-related labs Time Spent in Nutritional Counseling and Treatment: 10 min
[2025-04-27] MEDS: dilTIAZem 25 MG/5 ML VIAL 5 MG IVP (10:00)
[2025-04-27] MEDS: Miconazole 2% Topical Powder 85 GM BTL TP (10:35)
--- NOTE | 2025-04-27 11:07 | IN_ITS ---
PT Notes Visit Reasons: GI bleed, renal failure, acidosis Physical Therapy Inpatient Initial Evaluation Date: 04/27/2025 Referring Doctor: Dr. Escalante PT Orders: PT CONSULT: Eval for assistive device, safety consult for discharge Precautions: Telemetry, ileostomy, Forte catheter, IV access left upper extrem ity Patient Profile/Admitting Diagnosis: Annamarie is an 89-year-old female presented to the ED with 2 days of fatigue, intermittent confusion, and lightheadedness in the setting of 2-3 weeks of blood and increased output in her ileostomy. Patient admitted to ICU with acute kidney injury, hypovolemic shock, paroxysmal A-fib and GI bleed. Patient had palliative consult who recommended PT consult PMHX: Hypovolemic shock (Acute) Palliative care encounter (Acute) ACP (advance care planning) (Acute) Encounter for hospice care discussion (Acute) Unintentional weight loss (Acute) GI bleeding (Chronic) Hyperkalemia (Acute) Acute renal failure (Acute) PSVT (paroxysmal supraventricular tachycardia) (Acute) At high risk for skin breakdown (Acute) Parastomal ulcer of enterostomy (Acute) Abn react-external stoma (Acute) Elevated serum creatinine (Acute) Chronic pain in left foot (Acute) Medical History (Updated 04/25/25 @ 16:15 by Edwin Escalante) Stage 4 chronic kidney disease H/O malignant neoplasm of colon History of breast cancer CONTRERAS (nonalcoholic steatohepatitis) Cirrhosis Ischemic neuropathy of foot PAD (peripheral artery disease) Pacemaker Hypertension Paroxysmal atrial fibrillation Hypercholesterolemia Surgical History Hemicolectomy (06/30/13) Right, due to colonic perforation from adenocarcinoma of transverse colonColostomy 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 Park @ [facility] [place], 2015-no recurrence Social History/Home Situation: Pt resides at home with her . Pt independent with 4WW for ambulation. Pt independent ADL including illeostomy care. Pt manages finances and meal prep. Pt's daughter is available to assist . Thoracic Equipment Owned/DME: 4ww with Subjective: Pt reports she wants to go home. She states she has not decided if she wants Hospice services at this time. She notes her legs feel Stiff Objective: [] General Observation: female awake semireclined in bed with telemetry, forte and IV infusing in LUE. Mental Status: A+)x4, able to follow instructions she is, pleasant and cooperative, Pt agreeable to participate in PT assessment Pain: denies ROM: [] B Upper Extremity: impaired GHJ flexion to 90 degrees, , Unable to reach behind head, elbow wrist WFL, grasp good BLE: WFL except DF to neutral Strength: [] BUE: grossly 3/5 BLE: hips 3-/5, knee extension 3/5,flexion 3-/5, ankle 3/5 Sensation: intact Bed Mobility/Transfers: [] Supine to sit mod A Sit to stand min A verbal cues for hand placement Stand to sit min A verbal cues for hand placement Bed to chair :min assist with four-wheel walker Gait: Ambulate 8 steps with 4 wheeled walker min assist of 1 demonstrating decreased step length bilaterally, narrow base of support Balance: Static Sitting: Good Dynamic Sitting: Fair Static Standing: Fair Dynamic Standing: Fair minus Special Tests: [] Mobility Limitations Standardized Measure [] [facility] 6 clicks Basic Mobility Inpatient Short Form: [] Raw Score: 9 CMS Score: 81.38% Informed Consent/Education: Patient instructed in purpose of PT consult. Treatment: 27256 Sit to stand from bedside chair with mod assist of 1 and cues for hand placement, step turn with four-wheel walker chair to bed with min assist of 1, sit to supine mod assist of 1 for lower extremities and trunk management, rolling [id number] with use of rail min assist of 1 Assessment: Patient is an 89-year-old female who presents with clinical signs and symptoms consistent with current/admitting diagnoses that have resulted to mobility limitations, gait instability, generalized weakness, and impairment of motor control as demonstrated by the following impairment level findings: 1. Decreased strength to BUE/ BLE major muscle groups 2. Impaired standing balance 3. Limitation of joint range of motion in B shoulders, B Ankles 4. Impaired functional activity tolerance Impairments are contributing to the following functional limitations: 1. Inability to safely ambulate without assistive device 2. Increase completion time for mobility ADL performance 3. Increased fall risk Pt. is uncertain of her discharge plan at this time. PT discharge recommendations for equipment if pt should decide on hospice or end of life care within home are as follows: Hospital bed, bedside table, commode and hemiheight wheelchair for transport if pt unable to ambulate. Patient is assessed as a moderate complexity based on the following: History: 89-year-old female with impairment level findings, functional limitations, and past medical history as indicated above Examination: Demonstrable impairment in strength, balance, and mobility level with underlying impairments and functional limitations as documented above Presentation: evolving Decision Making: moderate Goals: 1. min A bed mobility 2. CGA transfers with 4WW 3. min A amb with 4WW >25 feet x4 Plan of Care/Treatment Plan: 1-2x/day, 7 days/week x 1 week. Plan of care has been reviewed with the MANAGER PRIVATE providing the service under Physical Therapy direction. Initiate Physical Therapy intervention for strengthening, bed mobility, transfers, gait, stairs, balance training, use of assistive device. DISCHARGE RECOMMENDATIONS: Home with HHPT. Pt would benefit from hospital bed, commode, bedside table and wheelchair vs transport chair for locomotion within home. Pt has 4WW/rollator at home which she is able to use now. as status changes she may benefit from FWW TREATMENT CODE/TIME: [id number]/ [id number], [id number] Thank you for the opportunity to participate in the care of this patient. Destini Huynh, PT [facility]
--- NOTE | 2025-04-27 12:57 | W.PC.ACHO ---
Registration Status: Primary Language: Preferred Language: ED Information & Data Chief Complaint GI Bleed 04/25/25 04:53 Triage Note Brought in by ambulance from 04/25/25 04:27 home, states bleeding from vagina, started a couple days ago. Per EMS - pt has been bleeding from colostomy bag x3 weeks. reports feeling dizzy, lightheaded since yesterday. colostomy in place for 10 years. Denies nausea, vomiting. pt confused, poor historian. Medical / Surgical History (Last Updated 04/25/25 @ 16:12 by Edwin Escalante) Pacemaker Hypercholesterolemia Stage 4 chronic kidney disease H/O malignant neoplasm of colon History of breast cancer CONTRERAS (nonalcoholic steatohepatitis) Cirrhosis Ischemic neuropathy of foot PAD (peripheral artery disease) Hypertension Paroxysmal atrial fibrillation (Last Reviewed 04/25/25 @ 15:56 by Edwin Escalante) Hemicolectomy (06/30/13) Colostomy Colonoscopy Most Recent Vital Signs Temperature 36.6 C 04/27/25 07:30 Temperature Source Temporal Artery Scan 04/27/25 07:30 Pulse 61 04/27/25 12:03 Pulse 60 04/27/25 12:04 Respiratory Rate 14 04/27/25 12:04 Respiratory Effort Normal, Non-Labored 04/25/25 11:29 Respiratory Depth Normal 04/25/25 11:29 Respiratory Pattern Normal 04/25/25 11:29 Blood Pressure 98/41 L 04/27/25 12:03 Blood Pressure Mean 60 04/27/25 12:03 Blood Pressure Position Supine 04/25/25 04:27 Pulse Oximetry 100 04/27/25 07:35 Oxygen Delivery Method Room Air 04/27/25 07:30 Oxygen Flow Rate 0 04/27/25 07:30 Pain Level 0 04/27/25 07:30 Comment Left forearm 04/27/25 10:15 Allergies No Known Allergies Allergy (Unverified 04/25/25 04:35) Precautions Isolation Standard precaution 04/25/25 04:35 Active Medications Generic Name Dose Route Start Last Admin Trade Name Freq PRN Reason Stop Dose Admin Gabapentin 200 mg 04/25/25 20:00 04/27/25 08:08 Gabapentin 100 Mg Cap PO 200 mg BID HENNA Administration Miconazole Nitrate 0 gm 04/27/25 20:00 04/27/25 10:35 Miconazole 2% Topical Powder 85 Gm Btl TP 05/11/25 23:59 1 applic BID HENNA Administration Pantoprazole Sodium 40 mg 04/26/25 07:30 04/27/25 08:08 Pantoprazole 40 Mg Tabcr PO 40 mg DAILY@0730 HENNA Administration Sodium Chloride 0 ml 04/25/25 08:30 04/27/25 08:11 Normal Saline Flush 10 Ml Syr IVP 40 ml BID HENNA Administration IV IV Catheter Type [Left Forearm Saline Lock ] IV Catheter Type [Left Upper Peripheral IV arm] IV Catheter Type [Left Saline Lock Antecubital] IV Catheter Gauge [Left 20 Forearm] IV Catheter Gauge [Left Upper 18 arm] IV Catheter Gauge [Left 18 Antecubital] Diet Orders Category Date Time Status Diet [Low Sodium] [DIET] Nutrition 04/27/25 Lunch Active Diagnostics 04/27/25 Range/Units 06:22 WBC 3.77 L (4.4-10.8) 10^3/uL RBC 2.93 L (3.93-5.22) 10^6/uL Hgb 8.4 L (11.2-15.7) g/dL Hct 24.9 L (36.0-46.0) % MCV 85 (80-95) fL MCH 28.7 (27.0-33.0) pg MCHC 33.7 (32.0-36.0) % RDW 15.3 H (11.7-14.6) % Plt Count 66 L (130-400) 10^3/uL MPV 10.7 (8.0-11.0) fL Sodium 138 (136-145) mmol/L Potassium 4.3 (3.5-5.1) mmol/L Chloride 109 H (98-107) mmol/L Carbon Dioxide 17.3 L (21.0-32.0) mmol/L Anion Gap 11.7 H (3-11) mmol/L BUN 102 H* (7-18) mg/dL Creatinine 3.4 H (0.55-1.02) mg/dL Est GFR (CKD-EPI 2020) 12.48 (mL/min/1.73m2) Glucose 83 (74-106) mg/dL Calcium 9.2 (8.5-10.1) mg/dL [id number] Documentation Fingerstick Glucose Start: 04/25/25 07:02 Freq: .Q1H Status: Complete Protocol: Activity Type Activity Date Activity User E-sign Co-sign Detail Recorded Client Recorded Date Recorded By Document 04/25/25 07:34 SHERMANG DAHUSSEINON(3) [id number] 04/25/25 07:35 BKG DAEMON(4) Intake and Output - 24 Hour Total 04/25/25 04:25 thru 04/27/25 12:33 Intake Total 6271.016 Output Total 2650 Balance 3621.016 Weight 69.9 kg Intake: IV 4141.016 Oral 2130 Output: Urine 1650 Stool 1000 Other: Urine Color Yellow Urine Appearance Cloudy Stool Characteristics Liquid Brown Emesis Description None Urinary Catheter Urinary Catheter Date of 04/25/25 Insertion [Urethral (Acuña)] Time of insertion [Urethral ( 06:51 Acuña)] Falls Risk Assessment History of Falls No History 04/25/25 11:29 Contributing Factors Unstable,Impairments 04/25/25 11:29 Ambulatory Aids Uses ambulatory device 04/25/25 11:29 Tubes/Lines W/no contributing factors 04/25/25 11:29 Gait Evaluation W/any additional score 04/25/25 11:29 Cognition Cognitive impairment 04/25/25 11:29 Fall Total Score 66 04/25/25 11:29 Level of Risk High Risk 04/25/25 11:29 Problems (Last Updated 04/25/25 @ 16:12 by Edwin Escalante) Ileum ulcer (Acute) Hypovolemic shock (Acute) Palliative care encounter (Acute) ACP (advance care planning) (Acute) Encounter for hospice care discussion (Acute) Unintentional weight loss (Acute) GI bleeding (Chronic) Hyperkalemia (Acute) Acute renal failure (Acute) At high risk for skin breakdown (Acute) Notes 04/26/25 02:25 Nursing Notes by Stephanie Kumar 0230- pt sleeping soundly now with HR in the 60's and AV paced. freq pvcs. urine output borderline. MD aware. Initialized on 04/26/25 02:25 - END OF NOTE 04/26/25 01:02 Nursing Notes by Stephanie Kumar 0100bolus infused. HR now 62and AV paced. Some bigeminy noted. Norepi down to 2.5 mcg Initialized on 04/26/25 01:02 - END OF NOTE 04/26/25 00:38 Nursing Notes by Stephanie Kumar-pt HR up to [address] Ni notified. Ordered one time bolus of LR of 250 cc. Given as ordered.pts hr now 70's with pacer spikes. noted to be in bigeminy for short time. Initialized on 04/26/25 00:38 - END OF NOTE v v v v v v v v v Sending and/or Receiving Nurses: Please use comment section below to note any information pertinent to the patient hand-off not included above. Information / Comments: report received all questions answered. Report received from: MARGARITA Raphael@ [phone]
--- NOTE | 2025-04-27 13:01 | W.PM.PROGNOT ---
Date of Service Date of service: 04/27/25 Time of Service: 13:01 Assessment and Plan Assessment and plan (1) Acute renal failure: Status: Acute Assessment and plan: Acute renal failure on chronic stage 4 CKD. She was acidotic and hyperkalemic on admission, declined transfer to [facility] to consider hemodyalysis. Secondary to blood/fluid loss with hypotension, see below. Fortunately, she continues adequate urine output, acidosis slowly improving. AG almost closed, bicarb is low but close to baseline with CKD in high teens. GFR imrpoving now approaching baselin. Continue supportive care, hydration, monitor I/Os, but can d/c forte (2) Hypovolemic shock: Status: Acute Assessment and plan: Improved with fluids, on norinephrine in first 24hrs, now stable off. She has h/o moderate , echo 04/27 shows stable moderate , preserved LVEF. (3) GI bleeding: Status: Chronic Assessment and plan: She doesn't want aggressive procedures. Bleeding is likely from the area of ileostomy that was bleeding in the past. Subacute by history and anemia not severe. Bleeding visibly resolved 04/26. Appreciate surgical input, Dr. Webb did her previous procedure and knows her well. No procedure recommended at this point. Hemoglobin continuing to drift down. Follow, get iron levels. I want to see this stabilize before discharge. (4) Cirrhosis: Assessment and plan: Compensated clinically. No known h/o varicies but low platelets do suggest portal HTN. I'm not sure this is contributing to bleeding, but change metoprolol to carvedilol to lower this risk when BP more stable. (5) Paroxysmal atrial fibrillation: Assessment and plan: Going into flutter here, which she had before. Responded to diltiazem. She was on both dilt and metoprolol before. Will resume oral diltiazem, replace metoprolol with low dose carvedilol for portal HTN. She has pacer so heart block not a concern. (6) Hyperkalemia: Status: Acute Assessment and plan: Improved after binder overnight, acidosis also resolving. Stopped lokelma 04/26, follow. (7) ACP (advance care planning): Status: Acute Assessment and plan: Patient was able to understand risk of non-agressive care including risk of without hemodyalysis. She met with palliative and was able to talk to her sister, which she wanted to do before she dies. Continue following with palliative. COnfirmed DNR/DNI. She may shift to MANAGER MANAGING if she worsens, but she seems to be stabilizing Offered hospice on discharge, not ready to commit. Will plan ongoing palliative follow up. Subjective Subjective Patient reports: tolerating a regular diet; denies diarrhea, vomiting, shortness of breath or fever Interval history since last seen: Events: SVT overnight. Another episode 96 minutes at ~140bpm this morning, resolved after 5mg diltizem IV She feels okay. 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 Exam Narrative Exam Narrative: GEN: Alert and oriented, sitting up in bed, no acute distress at rest. LUNGS: CTAB with normal effort CV: RRR with 3/6 systolic murmur, no gallops, or rubs. ABD: active bowel sounds, soft, nontender and nondistended. No masses. Ostomy pink, brown liquid in bag, no visible blood. PSYCH: normal mood and affect Objective Last Vital Signs Temp 36.0 C L 04/27/25 12:56 Pulse 62 04/27/25 12:56 Resp 16 04/27/25 12:56 BP 83/37 L 04/27/25 12:56 Pulse Ox 100 04/27/25 12:56 Laboratory Results - last 24 hr 04/27/25 06:22 WBC 3.77 L RBC 2.93 L Hgb 8.4 L Hct 24.9 L MCV 85 MCH 28.7 MCHC 33.7 RDW 15.3 H Plt Count 66 L MPV 10.7 Sodium 138 Potassium 4.3 Chloride 109 H Carbon Dioxide 17.3 L Anion Gap 11.7 H BUN 102 H* Creatinine 3.4 H Est GFR (CKD-EPI 2020) 12.48 Glucose 83 Calcium 9.2 Time Spent with Patient Time Spent with Patient: >50 minutes Time was spent: preparing to see the patient(eg.review tests), obtaining and/or reviewing separately otained hiistory, ordering medications,tests, procedures, referring, communicating with other health direct support professional caregiver, indepentently interpreting results, counseling the patient, care coordination and other (Acute care for SVT/atrial flutter)
[2025-04-27 13:57] LABS: Lab Add On Test DONE
[2025-04-27 14:08] LABS: Iron 48 ug/dL (50-170); Total Iron Binding Capacity 241 ug/dL (250-450); Transferrin Sat 20 % (15-50)
--- NOTE | 2025-04-27 16:29 | PT.INTREAT ---
PT Notes Visit Reasons: GI bleed, renal failure, acidosis Inpatient Physical Therapy Treatment Note [facility] Date: 04/27/2025 PRECAUTIONS: Telemetry, Acuña, IV access left upper extremity ileostomy SUBJECTIVE: Patient reports she had her test and is ready to get out of bed for lunch. OBJECTIVE: Patient presented semireclined in bed telemetry in place, Acuña, IV infusing in left upper extremity with visiting ? PAIN: Denied VITALS: ?Monitored via telemetry throughout Therapeutic Activities (06780h[]): Direct one-on-one instruction in dynamic activities to improve functional performance. ? BED MOBILITY/TRANSFERS? Rolling L/R: Min assist Supine-sit: Mod assist ? Sit-supine: This session not assessed ? Sit-stand: Min assist from bed, mod assist from chair? Stand-sit: Min assist from bed/chair? Bed-Chair: With 4 WW mod assist? Provided skilled cues and instruction on performance and technique throughout. ASSESSMENT:?Pt tolerates session well. Pt with no reports of lightheadedness or dizziness during transfer. Pt limited activity tolerance in standing. PLAN: Cont with POC TREATMENT CODE/TIME: 40145 / [id number] DISCHARGE RECOMMENDATION: Home with HHPT vs Hospice
[2025-04-28 03:35] VITALS: BP 100/46; PULSE 63; RESP 19; TEMP 36.7; O2SAT 99
[2025-04-28 07:56] VITALS: BP 102/50; PULSE 62; RESP 15; TEMP 37.2; O2SAT 98
[2025-04-28] MEDS: Gabapentin 100 MG CAP 200 MG PO (08:26)
[2025-04-28] MEDS: dilTIAZem CD 120 MG CAPCR PO (08:26)
[2025-04-28] MEDS: Normal Saline Flush 10 ML SYR IVP (08:27)
[2025-04-28] MEDS: Pantoprazole 40 MG TABCR PO (08:27)
[2025-04-28] MEDS: Miconazole 2% Topical Powder 85 GM BTL TP (08:34)
[2025-04-28] MEDS: Carvedilol 3.125 MG TAB PO (08:37)
[2025-04-28 09:14] LABS: HCT 26.4 % (36.0-46.0); HGB 8.7 g/dL (11.2-15.7); MCH 28.6 pg (27.0-33.0); MCV 87 fL (80-95); MPV 11.3 fL (8.0-11.0); RBC 3.04 10^6/uL (3.93-5.22); RDW 15.5 % (11.7-14.6); WBC 5.81 10^3/uL (4.4-10.8)
--- NOTE | 2025-04-28 09:33 | PDOC.CMDIS ---
Date of service: 04/28/25 Time of Service: 09:33 LACE Index Scoring Tool Questions: Length of Stay (in days): 3 Was the patient admitted via the E.D.?: Yes E.D. Visits: 1 Answers: Total Score: 7 Risk of Readmission: Low Risk Care Management Discharge Plan Reason for Hospitalization: GI bleed, Renal Failure, Acidosis Discharge Plan: Discharge home with a plan to admit to Hospice services and is transferred via EMS. Annamarie will follow up with community providers and discharge plan of care as directed. software performance engineer spoke with family and it has been decided that DME is not needed on discharge per family request. Patient/Family Education Needs: Review discharge instructions and plan to follow up after discharge. Discuss ask me three and goals of self care. Services Needed at Discharge: Home Health Care Services (Hospice) and Transportation (EMS- [facility]-coordinated by CM ) SDOH Health Related Social Needs: Health related social needs housing instability, housed, with risk of homelessness (Z59.811), feeling lonely/isolated (Z60.8) Health related social needs details n/a, Health related social needs details: n/a
[2025-04-28 09:37] LABS: Anion Gap 14.1 mmol/L (3-11); CO2 15.9 mmol/L (21.0-32.0); Calcium 9.3 mg/dL (8.5-10.1); Chloride 110 mmol/L (98-107); Estimated GFR 11.65 (mL/min/1.73m2); Glucose 127 mg/dL (74-106); Potassium 4.5 mmol/L (3.5-5.1); Sodium 140 mmol/L (136-145)
[2025-04-28 09:42] LABS: BUN 100 mg/dL (7-18); CREATININE 3.6 mg/dL (0.55-1.02)
[2025-04-28 10:10] LABS: Platelet Count 64 10^3/uL (130-400)
--- NOTE | 2025-04-28 10:54 | W.PALPGNOTE ---
Date of service: 04/28/25 Time of Service: 10:35 Assessment and Plan Assessment and plan (1) Acute renal failure: Status: Acute Assessment and plan: Acute renal failure on chronic stage 4 CKD. She was acidotic and hyperkalemic on admission, declined transfer to [facility] to consider hemodyalysis. Secondary to blood/fluid loss with hypotension, see below. Fortunately, she continues adequate urine output, acidosis slowly improving. GFR imrpoving. Never wants dialysis. GOC- remain home, focus on QOL. (2) Hypovolemic shock: Status: Acute Assessment and plan: Improved with fluids, on norinephrine in first 24hrs, now stable off. She has h/o moderate , echo 04/27 shows stable moderate , preserved LVEF. (3) GI bleeding: Status: Chronic Assessment and plan: She doesn't want aggressive procedures. Bleeding is likely from the area of ileostomy that was bleeding in the past. Subacute by history and anemia not severe. Bleeding visibly resolved 04/26. Appreciate surgical input, Dr. Webb did her previous procedure and knows her well. No procedure recommended at this point. (4) Cirrhosis: Assessment and plan: Hx CONTRERAS. Compensated clinically. (5) Paroxysmal atrial fibrillation: Assessment and plan: She has pacemaker. (6) Hyperkalemia: Status: Acute Assessment and plan: Improved. (7) ACP (advance care planning): Status: Acute Assessment and plan: Annamarie is an 89 year old female currently hospitalized with Acute on chronic renal failure, hyperkalemia with no plans to ever do dialysis. She also has past medical Hx significant for cirrhosis r/t CONTRERAS, GI bleeding from stoma (recurrent), no surgery indicated per general surgery consultation, PAF. She met with palliative earlier on this admission. GOC discussion today: she prefers to be home, not in hospital, prefers to focus on comfort/QOL. She has repeated several times she never wants dialysis. She is DNR/DNI, COLST completed. Reviewed hospice and discussed with daughter, both agree this is in line with her goals. Iris, daughter willing to sign on as primary caregiver, she already helps a lot. Annamarie lives with her elderly , Mayur, who also helps her. Refer to hospice. PT recommends: Pt would benefit from hospital bed, commode, bedside table and wheelchair vs transport chair for locomotion within home. Subjective Subjective Interval history since last seen: Annamarie was seen for Palliative f/u. She was seen earlier on this admission by Elyse Silverman, REJI. Reviewed GOC. She is clear she never wants dialysis. She does not want CPR or to be intubated. She prefers not to be in the hospital. She wishes to focus on QOL. Reviewed the option of hospice as this appears to be in line with her goals. She is agreeable as long as her daughter, Iris agrees. Iris helps Annamarie and her , Mayru in their home frequently. Phone call to Iris, she agrees with transition to hospice. Iris agrees to sign on as caregiver if the team feels this is appropriate. She lives with her , Mayur who also helps her. She reports that her appetite is okay. She declined breakfast today. She has been eating 50-100% of her meals while in the hospital. Her weight appears to be down about 20# since last summer. PT evaluation recommends: Pt would benefit from hospital bed, commode, bedside table and wheelchair vs transport chair for locomotion within home. Exam Narrative Exam Narrative: General: older adult female, chronically ill appearing, lying in bed with HOB elevated. No acute distress. She is awake and alert, engages in the visit, answers questions appropriately. HEENT: KOBUK, MMM, normocephalic, atraumatic Resp: even and unlabored, speaks full sentences, no cough or audible wheeze Ext: R ankle tender on palpation, no edema. Objective Last Vital Signs Temp 37.2 C 04/28/25 07:56 Pulse 62 04/28/25 07:56 Resp 15 04/28/25 07:56 BP 102/50 L 04/28/25 07:56 Pulse Ox 98 04/28/25 07:56 Laboratory Results - last 24 hr 04/27/25 04/27/25 04/28/25 06:22 Unknown 09:05 WBC 5.81 RBC 3.04 L Hgb 8.7 L Hct 26.4 L MCV 87 MCH 28.6 MCHC 33.0 RDW 15.5 H Plt Count 64 L MPV 11.3 H Sodium 140 Potassium 4.5 Chloride 110 H Carbon Dioxide 15.9 L Anion Gap 14.1 H BUN 100 H* Creatinine 3.6 H* Est GFR (CKD-EPI 2020) 11.65 Glucose 127 H Calcium 9.3 Iron 48 L TIBC 241 L Transferrin % Sat 20 Add-On Test Request DONE
[2025-04-28 11:41] VITALS: BP 108/90; PULSE 60; RESP 15; TEMP 37.4; O2SAT 96
--- NOTE | 2025-04-28 12:24 | DSE_ITS ---
Date of service: 04/28/25 Time of Service: 12:24 DS: Diagnosis Discharge Diagnosis (1) Acute renal failure: Status: Acute (2) Hypovolemic shock: Status: Acute (3) GI bleeding: Status: Chronic (4) Cirrhosis: (5) Paroxysmal atrial fibrillation: (6) Hyperkalemia: Status: Acute (7) ACP (advance care planning): Status: Acute Discharge Plan Disposition Patient Disposition: Home W/Hospice Services Condition: Stable Discharge Details Reason For Visit: GI bleed, renal failure, acidosis Admit Date/Time: 04/25/25 10:06 Admit Provider: Edwin Escalante Attending Provider: Edwin Escalante Primary Care Provider: Dede Miller Hospital Course Hospital Course: 89-year-old female with multiple medical comorbidities including atrial fibrillation/flutter off anticoagulation due to history of bleeding from her ileostomy, hypertension, MASLD cirrhosis, stage 4 CKD, and pacemaker who presented with 2 days of fatigue, intermittent confusion, and lightheadedness in the setting of 2-3 weeks of blood and increased output in her ileostomy. She never had chest pain, shortness of breath, or abdominal pain. She was hypotensive on ED evaluation and found to have hyperkalemia to 6.3, Cr of 5.3 up from 2.7, and have mixed AG/non AG acidosis with CO2 of 11.9. She declined transfer for renal replacement therapy. She was treated with IV fluids and a did require norepinephrine along with insulin/glucose and potassium binders. She was making adequate. Fortunately her hyperkalemia and acidosis improved and she was off norepinephrine by the next morning. Her hemoglobin decreased from 11.4 to 8.4 then stabilized at 8.7. The visible bleeding in her ostomy bag resolved. She was seen and evaluated by Dr. Webb who did her previous surgery and he did not recommend repeating surgery for bleeing from the ileostomy. She had episodes of SVT to the 140s consistent with aflutter. After a 90+ minute episode she was treated with Diltiazem 5mg IV and this converted her back to sinus. Her long acting oral diltiazem 120mg was resumed. Metoprolol was replaced with carvedilol to lower portal HTN associated with cirrhosis which may be contributing to her bleeding. She met with palliative care and was offered hospice services, which she accepted. She will be discharged to home hospice. The rate control medications were continued for comfort. Gabapentin was also continued for comfort at a lower dose due to renal disease. She was using antifungal skin powder as well. Home Meds and New Rx's Prescriptions: New miconazole nitrate [Remedy Phytoplex Antifungal] 2 % Powder 1 applic topical BID Qty: 100 0RF carvedilol 3.125 mg Tablet 3.125 mg PO BID Qty: 60 2RF gabapentin 100 mg Capsule 200 mg PO BID Qty: 60 2RF carboxymethylcellulose sodium [Refresh Plus] 0.5 % Dropperette 2 drp OU PRN PRNQty: 1 0RF Continued acetaminophen 650 mg suppository 650 mg IN Q6H PRN (Reason: fever, mild pain) Qty: 6 0RF Rx Instructions: Hospice Patient hyoscyamine sulfate 0.125 mg tablet,disintegrating 0.125 - 0.25 mg PO Q4H PRN (Reason: secretions) Qty: 24 0RF Rx Instructions: Hospice Patient lorazepam 1 mg tablet 1 mg PO Q4H PRN (Reason: anxiety, SINGH or nausea) Qty: 6 5RF Rx Instructions: Hospice Patient haloperidol lactate 2 mg/mL concentrate 1 mg PO Q6H PRN (Reason: agitation) Qty: 15 0RF Rx Instructions: Hospice Patient morphine concentrate 100 mg/5 mL (20 mg/mL) solution 5 - 20 mg PO Q1-4H MDD 5 mL PRN (Reason: moderate to severe pain or shortness of breath) Qty: 30 0RF Rx Instructions: Hospice Patient prochlorperazine maleate 10 mg tablet 10 mg PO Q6H PRN (Reason: nausea and vomiting) Qty: 6 0RF Rx Instructions: Hospice Patient bisacodyl [Dulcolax (bisacodyl)] 10 mg suppository 10 mg IN daily PRN (Reason: constipation) Qty: 2 0RF Rx Instructions: Hospice Patient Insert 1 supp IN Daily PRN constipation (no BM in 3 days) diltiazem HCl 120 mg Capsule,Extended Release 24hr 120 mg PO DAILY Qty: 90 1RF Discontinued gabapentin 600 MG tablet 600 mg PO BID No Action metoprolol succinate 50 mg tablet extended release 24 hr 50 mg PO DAILY Discharge Instructions Instructions: Gastrointestinal Bleeding (DC), Atrial Flutter (DC) Stand Alone Forms: Nursing Discharge Form Activity:: Activity as Tolerated Equipment/Supplies:: No Equipment Needed Diet:: As Tolerated Discharge Orders Discharge Orders: Discharge Order (Routine); Ordered 04/28/25 Ordered By: Edwin Escalante DS: Summary Time Spent with Patient providing and/or coordinating discharge services: Greater than 30 minutes Status at Discharge Functional status at discharge: bed bound Overall status at discharge: patient is not back to baseline Mental Status: mental status grossly normal Speech and Movement: speech and movement normal Mood: congruent mood Affect: normal affect Quality:SDOH Health Related Social Needs: Health related social needs housing instability, house d, with risk of homelessness (Z59.811), feeling lonely/isolated (Z60.8) Health related social needs details n/a, Health related social needs details: n/a Exam Narrative Exam Narrative: GEN: Alert and oriented, sitting up in bed, no acute distress at rest. LUNGS: CTAB with normal effort CV: RRR with 3/6 systolic murmur, no gallops, or rubs. ABD: active bowel sounds, soft, nontender and nondistended. No masses. Ostomy pink, brown liquid in bag, no visible blood. PSYCH: normal mood and affect Psych Mental Status: mental status grossly normal Speech and Movement: speech and movement normal Mood: congruent mood Affect: normal affect DS: Data Vitals/I&O Vitals and I&O: Vital Signs Temperature 37.4 C 04/28/25 11:41 Temperature Source Tympanic 04/28/25 11:41 Pulse 60 04/28/25 11:41 Pulse 60 04/27/25 12:04 Respiratory Rate 15 04/28/25 11:41 Respiratory Effort Normal, Non-Labored 04/25/25 11:29 Respiratory Depth Normal 04/25/25 11:29 Respiratory Pattern Normal 04/25/25 11:29 Blood Pressure 108/90 04/28/25 11:41 Blood Pressure Mean 96 04/28/25 11:41 Blood Pressure Position Supine 04/25/25 04:27 Pulse Oximetry 96 04/28/25 11:41 Oxygen Delivery Method Room Air 04/28/25 11:41 Oxygen Flow Rate 0 04/28/25 11:41 Pain Level 0 04/27/25 15:04 Comment RN notified 04/28/25 07:56 Comment Left forearm 04/27/25 10:15 Intake & Output 04/27/25 04/28/25 04/28/25 23:59 11:59 23:59 Intake Total 1700 / 1900 Output Total 400 / 1200 400 / 400 Balance 1300 / 700 -390 / -390 Weight 71.577 kg Intake: IV 1000 / 1000 Oral 700 / 900 Output: Urine 100 / 600 200 / 200 Stool 300 / 600 200 / 200 Other: Urine Color Yellow Yellow Urine Appearance Clear Comment chronic forte, see catheter assessment for voiding output Stool Size Moderate Moderate Stool Characteristics Liquid Liquid Brown Brown Data Completed and Pending Labs on day of discharge: Labs from last 24 hours 04/28/25 04/27/25 04/27/25 09:05 Unknown 06:22 WBC 5.81 RBC 3.04 L Hgb 8.7 L Hct 26.4 L MCV 87 MCH 28.6 MCHC 33.0 RDW 15.5 H Plt Count 64 L MPV 11.3 H Sodium 140 Potassium 4.5 Chloride 110 H Carbon Dioxide 15.9 L Anion Gap 14.1 H BUN 100 H* Creatinine 3.6 H* Est GFR (CKD-EPI 2020) 11.65 Glucose 127 H Calcium 9.3 Iron 48 L TIBC 241 L Transferrin % Sat 20 Add-On Test Request DONE PFSH All Active Problems (Updated 04/27/25 @ 08:34 by Efren Webb MD) Ileum ulcer (Acute) Hypovolemic shock (Acute) Palliative care encounter (Acute) ACP (advance care planning) (Acute) Encounter for hospice care discussion (Acute) Unintentional weight loss (Acute) GI bleeding (Chronic) Hyperkalemia (Acute) Acute renal failure (Acute) PSVT (paroxysmal supraventricular tachycardia) (Acute) At high risk for skin breakdown (Acute) Abn react-external stoma (Acute) Elevated serum creatinine (Acute) Chronic pain in left foot (Acute) Medical History (Updated 04/27/25 @ 08:34 by Efren Webb MD) Stage 4 chronic kidney disease H/O malignant neoplasm of colon History of breast cancer CONTRERAS (nonalcoholic steatohepatitis) Cirrhosis Ischemic neuropathy of foot PAD (peripheral artery disease) Pacemaker Hypertension Paroxysmal atrial fibrillation Hypercholesterolemia Surgical History Hemicolectomy (06/30/13) Right, 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 Park @ [facility] [place]-no recurrence Social History Smoking/Tobacco Use Status: Never Smoking risk assessment performed?: Yes Alcohol Intake: never Drug use: Never Substance use type: does not use Housing: house Do you feel safe at home: Yes Do you feel safe in your relationship?: Yes Time Spent with Patient Time Spent with Patient: 45-69 minutes Time was spent: preparing to see the patient(eg.review tests), obtaining and/or reviewing separately otained hiistory, ordering medications,tests, procedures, referring, communicating with other health early breastfeeding care specialist, indepentently interpreting results, counseling the patient and care coordination
--- NOTE | 2025-04-28 14:34 | CHAPLAIN ---
When I stopped in to see Annamarie this afternoon, she was agitated. She said she'd try to call for her nurse, but no one had answer. It didn't appear that she'd pushed the call button. She was worried that Ghassan has not returned yet after going home for a nap at 10 am. She wanted to have the phone closer to her. I got the phone and we tried calling her daughter, Iris, but the call went to voice mail and the mailbox was full. When I checked back about 20 minutes later, Ghassan had arrived.
== END 2025-04-28 15:55 | disposition hospice, home (50) | DRG 393 ==
LOC: ER 09:38 → ICU 13:49 → MS 04-27 12:53
PROVIDERS: Emergency Medicine; Admitting Provider Family Medicine; Emergency Provider Emergency Medicine; PCP Legal Medicine; Responsible Provider Family Medicine; Visit Provider Family Medicine
DX: K94.11 Enterostomy hemorrhage (principal); R57.1 Hypovolemic shock; N17.9 Acute kidney failure, unspecified; N18.4 Chronic kidney disease, stage 4 (severe); K63.3 Ulcer of intestine; I47.19 Other supraventricular tachycardia; I48.92 Unspecified atrial flutter; K76.6 Portal hypertension; E87.20 Acidosis, unspecified; K94.19 Other complications of enterostomy; E87.5 Hyperkalemia; R63.4 Abnormal weight loss; Z51.5 Encounter for palliative care; K74.69 Other cirrhosis of liver; I48.0 Paroxysmal atrial fibrillation; Z85.038 Personal history of other malignant neoplasm of large intestine; Z68.31 Body mass index [BMI] 31.0-31.9, adult; K43.5 Parastomal hernia without obstruction or gangrene; G89.29 Other chronic pain; I12.9 Hypertensive chronic kidney disease with stage 1 through stage 4 chronic kidney disease, or unspecified chronic kidney disease; Z95.0 Presence of cardiac pacemaker; R53.83 Other fatigue; R41.0 Disorientation, unspecified; Z66 Do not resuscitate; I35.0 Nonrheumatic aortic (valve) stenosis
CPT/HCPCS: 00123; 36415; 36416; 51702; 80048; 80053; 82962; 85027; 86850; 86900; 86901; 86920; 93005; 93306; 96361; 96374; 96375; 97162; 97530; 99222; 99232; 99291; 81003; 81015; 83540; 83550; 83735; 85014; 85018; 85025; 85610; 86870; 86902; 93010; 99223; 99233; 99239; J0612; J1815; J2470

== ENCOUNTER 2025-04-29 16:24 | Observation (INO) | payer MEDICARE, SELFPAY ==
[2025-04-29 16:28] VITALS: BP 112/53; PULSE 80; RESP 16; TEMP 36.9; O2SAT 99
[2025-04-29 16:33] VITALS: BP 112/53; PULSE 80; RESP 19; TEMP 36.9; O2SAT 99
--- NOTE | 2025-04-29 16:38 | ED.GENADUL_ITS ---
Discharge Plan Disposition Patient Disposition: Admit to [facility] Discharge Details Chief Complaint: GenMedical Clinical Impression: Adult failure to thrive, Elevated serum creatinine, Hypomagnesemia Admit Date/Time: 04/29/25 17:20 Admit Provider: Arsh Saleh Attending Provider: Arsh Saleh Primary Care Provider: Dede Miller ED Provider: Maggi Fowler [facility] General Date/Time Provider Initiated Documentation: 04/29/25 16:27 . HPI Narrative: Annamarie is an 89-year-old female who presents to the emergency department today for evaluation of failure to thrive. She reports that she does not feel she can take care of herself at home. was brought to the emergency department for evaluation as well. Discharged yesterday after hospitalization for resolved stoma bleeding. History of cancer, post-surgery, in remission. Stoma functioning normally. No recent illness, fevers, chills, congestion, sore throat, cough, headaches, dizziness, chest pain, dyspnea, abdominal pain, nausea, vomiting, or changes in bowel/bladder habits. No diabetes or history of [place]. Consumed water and coffee today, as well as oatmeal. Concerned about self-care due to new inability to walk, started weeks ago with ankle soreness. Reports tenderness from ankle to toes. Says she was unable to get around while in the hospital, has not used a wheelchair at home. PMH significant for pacemaker, paroxysmal SVT, MASLD cirrhosis, stage 4 CKD. Related Data Home Medications ?Medication ?Instructions ?Recorded ?Confirmed metoprolol succinate 50 mg 50 mg PO DAILY 05/21/24 04/29/25 tablet,extended release 24 hr acetaminophen 650 mg rectal 650 mg CA Q6H PRN fever, mild pain 04/28/25 04/29/25 suppository #6 supp bisacodyl 10 mg rectal suppository 10 mg CA daily PRN constipation #2 04/28/25 04/29/25 (Dulcolax (bisacodyl)) supp carboxymethylcellulose sodium 0.5 2 drp OU PRN PRN #1 ea 04/28/25 04/29/25 % eye drops in a dropperette (Refresh Plus) carvedilol 3.125 mg tablet 3.125 mg PO BID #60 tabs 04/28/25 04/29/25 diltiazem HCl 120 mg 120 mg PO DAILY #90 caps 04/28/25 04/29/25 capsule,extended release 24 hr gabapentin 100 mg capsule 200 mg (2 x 100 mg) PO BID #60 caps 04/28/25 04/29/25 haloperidol lactate 2 mg/mL oral 1 mg (0.5 mL) PO Q6H PRN agitation 04/28/25 04/29/25 concentrate #15 mL hyoscyamine sulfate 0.125 mg 0.125 - 0.25 mg (1 - 2 x 0.125 mg) 04/28/25 04/29/25 disintegrating tablet PO Q4H PRN secretions #24 tabs lorazepam 1 mg tablet 1 mg PO Q4H PRN anxiety, SINGH or 04/28/25 04/29/25 nausea #6 tabs miconazole nitrate 2 % topical 1 applic topical BID #100 grams 04/28/25 04/29/25 powder (Remedy Phytoplex Antifungal) morphine concentrate 100 mg/5 mL 5 - 20 mg (0.25 - 1 mL) PO Q1-4H 04/28/25 04/29/25 (20 mg/mL) oral solution PRN moderate to severe pain or shortness of breath #30 mL prochlorperazine maleate 10 mg 10 mg PO Q6H PRN nausea and 04/28/25 04/29/25 tablet vomiting #6 tabs Previous Rx's ?Medication ?Instructions ?Recorded acetaminophen 650 mg rectal 650 mg CA Q6H PRN fever, mild pain 04/28/25 suppository #6 supp bisacodyl 10 mg rectal suppository 10 mg CA daily PRN constipation #2 04/28/25 (Dulcolax (bisacodyl)) supp carboxymethylcellulose sodium 0.5 2 drp OU PRN PRN #1 ea 04/28/25 % eye drops in a dropperette (Refresh Plus) carvedilol 3.125 mg tablet 3.125 mg PO BID #60 tabs 04/28/25 diltiazem HCl 120 mg 120 mg PO DAILY #90 caps 04/28/25 capsule,extended release 24 hr gabapentin 100 mg capsule 200 mg (2 x 100 mg) PO BID #60 caps 04/28/25 haloperidol lactate 2 mg/mL oral 1 mg (0.5 mL) PO Q6H PRN agitation 04/28/25 concentrate #15 mL hyoscyamine sulfate 0.125 mg 0.125 - 0.25 mg (1 - 2 x 0.125 mg) 04/28/25 disintegrating tablet PO Q4H PRN secretions #24 tabs lorazepam 1 mg tablet 1 mg PO Q4H PRN anxiety, SINGH or 04/28/25 nausea #6 tabs miconazole nitrate 2 % topical 1 applic topical BID #100 grams 04/28/25 powder (Remedy Phytoplex Antifungal) morphine concentrate 100 mg/5 mL 5 - 20 mg (0.25 - 1 mL) PO Q1-4H 04/28/25 (20 mg/mL) oral solution PRN moderate to severe pain or shortness of breath #30 mL prochlorperazine maleate 10 mg 10 mg PO Q6H PRN nausea and 04/28/25 tablet vomiting #6 tabs Allergies Allergy/AdvReac Type Severity Reaction Status Date / Time No Known Allergies Allergy Verified 04/29/25 16:32 General Stated Complaint: GenMedical LETI: 3 Course Vital Signs Vital signs: Vital Signs Temperature 36.9 C 04/29/25 16:28 Pulse 80 04/29/25 16:28 Respiratory Rate 16 04/29/25 16:28 Blood Pressure 112/53 L 04/29/25 16:28 Pulse Oximetry 99 04/29/25 16:28 Temperature 36.9 C 04/29/25 16:33 Temperature Source Axillary 04/29/25 16:33 Pulse 80 04/29/25 16:33 Respiratory Rate 19 04/29/25 16:33 Blood Pressure 112/53 L 04/29/25 16:33 Blood Pressure Position Sitting 04/29/25 16:33 Pulse Oximetry 99 04/29/25 16:33 Oxygen Delivery Method Room Air 04/29/25 16:33 Oxygen Flow Rate 0 04/29/25 16:28 Medical Decision Making Initial Assessment: 89-year-old female with failure to thrive, unable to self- care, new difficulty walking due to ankle pain. Recently discharged post- treatment for resolved stoma bleeding. Alert and oriented but unable to manage at home due to 's declining health. I did review patient's recent hospitalization records from 04/25 to 04/28/2025. She was admitted to the ICU with ABBIE, hypovolemic shock, paroxysmal A-fib, and GI bleed. She was evaluated by PT on 04/27/2025, was found to have generalized weakness, gait instability, decree strength to upper and lower extremities, as well as limitation of joint ROM in ankles. She does have a four-wheel walker/rollator at home which she was able to use. She does have a daughter who was able to assist with care. She was discharged home to home hospice. ED Course: - Initiate comprehensive medical workup to rule out new/worsening electrolyte abnormalities - Implement fall precautions - Exam reveals diffuse tenderness to ankles and dorsum of foot, R>L Final Assessment: Patient is an 89-year-old female with failure to thrive and new difficulty walking due to ankle pain. Recently discharged post-treatment for resolved stoma bleeding. Alert and oriented but unable to manage at home due to 's declining health and her inability to care for self. Comprehensive medical workup initiated and fall precautions implemented. I independently interpreted the following tests: CBC reassuring. CMP notable for elevated creatinine compared to yesterday, 3.8 today (vs 3.6 yesterday). Hypomagnesemia noted, magnesium 1.4. TSH unremarkable Clinical Impression: - Failure to thrive - Hypomagnesemia Discussed case with Dr. Saleh, hospitalist and care management team. Patient to be admitted to begin long-term care placement/hospice placement. MDM Components Evaluation: - Number of Differential Diagnoses or Management Options: Failure to thrive, ankle pain - Amount and Complexity of Data Reviewed: Exam reveals ankle tenderness - Risk of Complication and Morbidity or Mortality: High due to patient's inability to self-care and 's declining health Patient consented to the use of NAHEED Quality:SDOH Health Related Social Needs: Health related social needs housing instability, house d, with risk of homelessness (Z59.811), feeling lonely/isolated (Z60.8) Health related social needs details n/a, PFSH All Active Problems (Updated 04/29/25 @ 19:03 by Maggi Bernard) Hypomagnesemia (Acute) Adult failure to thrive (Acute) Ileum ulcer (Acute) Palliative care encounter (Acute) ACP (advance care planning) (Acute) Encounter for hospice care discussion (Acute) Unintentional weight loss (Acute) GI bleeding (Chronic) PSVT (paroxysmal supraventricular tachycardia) (Acute) At high risk for skin breakdown (Acute) Abn react-external stoma (Acute) Elevated serum creatinine (Acute) Chronic pain in left foot (Acute) Medical History (Updated 04/29/25 @ 19:03 by Maggi Bernard) Pacemaker Hypercholesterolemia Stage 4 chronic kidney disease H/O malignant neoplasm of colon History of breast cancer CONTRERAS (nonalcoholic steatohepatitis) Cirrhosis Ischemic neuropathy of foot PAD (peripheral artery disease) Hypertension Paroxysmal atrial fibrillation Surgical History Hemicolectomy (06/30/13) Right, 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 Park @ [facility] [place], 2015-no recurrence Social History Smoking/Tobacco Use Status: Never Smoking risk assessment performed?: Yes Alcohol Intake: never Drug use: Never Substance use type: does not use Housing: house Do you feel safe at home: Yes Do you feel safe in your relationship?: Yes
--- NOTE | 2025-04-29 16:45 | RT.EKG_ITS ---
APPROVED REPORT Exam: Resting ECG Reason for Exam: generalized weakness, electrolyte imbalance Patient Location: E HR:66 bpm ECG Measurements Heart Rate 66 AXIS MI 192 P 62 QRSd 128 QRS -49 QT 404 T 57 QTc 424 Conclusion Sinus rhythm at a rate of 66 with RBBB, LAFB without acute ischemic change
--- NOTE | 2025-04-29 17:23 | W.PM.HP.N ---
Date of service: 04/29/25 Time of Service: 17:23 Assessment and Plan Assessment and plan (1) Acute renal failure: Status: Resolved Assessment and plan: Acute renal failure on chronic stage 4 CKD. She was acidotic and hyperkalemic on admission, declined transfer to [facility] to consider hemodyalysis. Secondary to blood/fluid loss with hypotension, see below. Fortunately, she continues adequate urine output, acidosis slowly improving. GFR imrpoving. Never wants dialysis. GOC- remain home, focus on QOL. 04/29/25 Awaiting labs but considering pt's wishes, this will only be important if there are significant electrolyte abnormalities (2) Hypovolemic shock: Status: Resolved Assessment and plan: Improved with fluids, on norinephrine in first 24hrs, now stable off. She has h/o moderate , echo 04/27 shows stable moderate , preserved LVEF. 04/29/25 resolved (3) GI bleeding: Status: Chronic Assessment and plan: She doesn't want aggressive procedures. Bleeding is likely from the area of ileostomy that was bleeding in the past. Subacute by history and anemia not severe. Bleeding visibly resolved 04/26. Appreciate surgical input, Dr. Webb did her previous procedure and knows her well. No procedure recommended at this point. 04/29/25 resolved (4) Cirrhosis: Assessment and plan: Hx CONTRERAS. Compensated clinically. (5) Paroxysmal atrial fibrillation: Assessment and plan: She has pacemaker. (6) Hyperkalemia: Status: Resolved Assessment and plan: Improved. 04/29/25 labs pending (7) ACP (advance care planning): Status: Acute Assessment and plan: Annamarie is an 89 year old female currently hospitalized with Acute on chronic renal failure, hyperkalemia with no plans to ever do dialysis. She also has past medical Hx significant for cirrhosis r/t CONTRERAS, GI bleeding from stoma (recurrent), no surgery indicated per general surgery consultation, PAF. She met with palliative earlier on this admission. GOC discussion today: she prefers to be home, not in hospital, prefers to focus on comfort/QOL. She has repeated several times she never wants dialysis. She is DNR/DNI, COLST completed. Reviewed hospice and discussed with daughter, both agree this is in line with her goals. Iris, daughter willing to sign on as primary caregiver, she already helps a lot. Annamarie lives with her elderly , Mayur, who also helps her. Refer to hospice. PT recommends: Pt would benefit from hospital bed, commode, bedside table and wheelchair vs transport chair for locomotion within home. History of Present Illness History of Present Illness Chief Complaint: FTT Narrative: This is an 89-year-old female who was recently discharged from the hospital yesterday and was to go on hospice secondary to chronic kidney disease and not wanting to hemodialysis. While she was at home the home health care workers came into see the family and thought that her was possibly having a stroke and recommended that he go to the hospital. Since he was her primary caregiver they thought it would be a good idea for her to come to the hospital as well. Of note, the patient's does not want to stay in the hospital and is leaving today. Upon my discussion with the patient she states that she does want to stay in the hospital so we will admit to obs. Labs are pending but I cannot see any of these being important not to change our disposition at this point. PFSH All Active Problems (Updated 04/29/25 @ 00:00 by HARI WHITMAN) Ileum ulcer (Acute) Palliative care encounter (Acute) ACP (advance care planning) (Acute) Encounter for hospice care discussion (Acute) Unintentional weight loss (Acute) GI bleeding (Chronic) PSVT (paroxysmal supraventricular tachycardia) (Acute) At high risk for skin breakdown (Acute) Abn react-external stoma (Acute) Elevated serum creatinine (Acute) Chronic pain in left foot (Acute) Medical History (Updated 04/29/25 @ 00:00 by HARI WHITMAN) Pacemaker Hypercholesterolemia Stage 4 chronic kidney disease H/O malignant neoplasm of colon History of breast cancer CONTRERAS (nonalcoholic steatohepatitis) Cirrhosis Ischemic neuropathy of foot PAD (peripheral artery disease) Hypertension Paroxysmal atrial fibrillation Surgical History Hemicolectomy (06/30/13) Right, 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 [facility] [place] Social History Smoking/Tobacco Use Status: Never Smoking risk assessment performed?: Yes Alcohol Intake: never Drug use: Never Substance use type: does not use Housing: house Do you feel safe at home: Yes Do you feel safe in your relationship?: Yes Meds Allergies and Home Medications Allergies Allergy/AdvReac Type Severity Reaction Status Date / Time No Known Allergies Allergy Verified 04/29/25 16:32 Home Medications ?Medication ?Instructions ?Recorded ?Confirmed ?Type metoprolol succinate 50 mg 50 mg PO DAILY 05/21/24 04/29/25 History tablet,extended release 24 hr acetaminophen 650 mg rectal 650 mg WA Q6H PRN fever, mild pain 04/28/25 04/29/25 Rx suppository #6 supp bisacodyl 10 mg rectal suppository 10 mg WA daily PRN constipation #2 04/28/25 04/29/25 Rx (Dulcolax (bisacodyl)) supp carboxymethylcellulose sodium 0.5 2 drp OU PRN PRN #1 ea 04/28/25 04/29/25 Rx % eye drops in a dropperette (Refresh Plus) carvedilol 3.125 mg tablet 3.125 mg PO BID #60 tabs 04/28/25 04/29/25 Rx diltiazem HCl 120 mg 120 mg PO DAILY #90 caps 04/28/25 04/29/25 Rx capsule,extended release 24 hr gabapentin 100 mg capsule 200 mg (2 x 100 mg) PO BID #60 caps 04/28/25 04/29/25 Rx haloperidol lactate 2 mg/mL oral 1 mg (0.5 mL) PO Q6H PRN agitation 04/28/25 04/29/25 Rx concentrate #15 mL hyoscyamine sulfate 0.125 mg 0.125 - 0.25 mg (1 - 2 x 0.125 mg) 04/28/25 04/29/25 Rx disintegrating tablet PO Q4H PRN secretions #24 tabs lorazepam 1 mg tablet 1 mg PO Q4H PRN anxiety, SINGH or 04/28/25 04/29/25 Rx nausea #6 tabs miconazole nitrate 2 % topical 1 applic topical BID #100 grams 04/28/25 04/29/25 Rx powder (Remedy Phytoplex Antifungal) morphine concentrate 100 mg/5 mL 5 - 20 mg (0.25 - 1 mL) PO Q1-4H 05/30/25 05/31/25 Rx (20 mg/mL) oral solution PRN moderate to severe pain or shortness of breath #30 mL prochlorperazine maleate 10 mg 10 mg PO Q6H PRN nausea and 04/28/25 04/29/25 Rx tablet vomiting #6 tabs Exam Narrative Exam Narrative: HEENT-NCAT MMM NECK-NO LAD NO JVD CV-RRR NO MRG LUNNGS-CTAB NO AMU ABD-SNTNDBSA ostomy in place EXT-NO CCE PSYCH-AAO X3 Results Labs 04/29/25 16:46 04/29/25 16:46 Last Vital Signs Temp 36.9 C 04/29/25 16:33 Pulse 80 04/29/25 16:33 Resp 19 04/29/25 16:33 BP 112/53 L 04/29/25 16:33 Pulse Ox 99 04/29/25 16:33 Time Spent Time spent with Patient: 40-54 minutes Time was spent: preparing to see the patient(eg.review tests), obtaining and/or reviewing separately otained hiistory, ordering medications,tests, procedures, referring, communicating with other health primary care sales representative, indepentently interpreting results, counseling the patient and care coordination
--- NOTE | 2025-04-29 18:01 | W.PC.ACHO ---
Registration Status: Primary Language: Preferred Language: ED Information & Data Chief Complaint GenMedical 04/29/25 16:47 Triage Note patient brought in with EMS, 04/29/25 16:28 patient declines hospice today and patient does not feel she will be able to get the rehab she needs at home and requested to come back to the hospital. patient d/c yesterday from this hospital. Medical / Surgical History (Last Updated 04/25/25 @ 16:12 by Edwin Escalante) Pacemaker Hypercholesterolemia Stage 4 chronic kidney disease H/O malignant neoplasm of colon History of breast cancer CONTRERAS (nonalcoholic steatohepatitis) Cirrhosis Ischemic neuropathy of foot PAD (peripheral artery disease) Hypertension Paroxysmal atrial fibrillation (Last Reviewed 04/25/25 @ 15:56 by Edwin Escalante) Hemicolectomy (06/30/13) Colostomy Colonoscopy Most Recent Vital Signs Temperature 36.9 C 04/29/25 16:33 Temperature Source Axillary 04/29/25 16:33 Pulse 80 04/29/25 16:33 Respiratory Rate 19 04/29/25 16:33 Respiratory Effort Normal, Non-Labored 04/29/25 16:40 Blood Pressure 112/53 L 04/29/25 16:33 Blood Pressure Position Sitting 04/29/25 16:33 Pulse Oximetry 99 04/29/25 16:33 Oxygen Delivery Method Room Air 04/29/25 16:33 Oxygen Flow Rate 0 04/29/25 16:28 Allergies No Known Allergies Allergy (Verified 04/29/25 16:32) Precautions Isolation Fall precaution 04/29/25 16:33 Diet Orders Category Date Time Status Regular/Normal [DIET] Nutrition 04/29/25 Dinner Active Diagnostics 04/29/25 04/29/25 Range/Units 16:47 16:46 WBC Pending RBC Pending Hgb Pending Hct Pending MCV Pending MCH Pending MCHC Pending RDW Pending Plt Count Pending MPV Pending Immature Gran % Pending Neutrophils % Pending Lymphocytes % Pending Monocytes % Pending Eosinophils % Pending Basophils % Pending Absolute Neutrophils Pending Absolute Lymphocytes Pending Absolute Monocytes Pending Absolute Eosinophils Pending Absolute Basophils Pending Sodium Pending Potassium Pending Chloride Pending Carbon Dioxide Pending Anion Gap Pending BUN Pending Creatinine Pending Est GFR (CKD-EPI 2020) Pending Glucose Pending Calcium Pending Magnesium Pending Total Bilirubin Pending AST Pending ALT Pending Alkaline Phosphatase Pending Total Protein Pending Albumin Pending TSH Pending Intake and Output - 24 Hour Total 04/29/25 16:09 thru 04/29/25 16:28 Weight 69.853 kg Falls Risk Assessment History of Falls Previous History 04/29/25 16:33 Contributing Factors Confusion 04/29/25 16:33 Ambulatory Aids Uses ambulatory device 04/29/25 16:33 Tubes/Lines With any additional score 04/29/25 16:33 Gait Evaluation W/any additional score 04/29/25 16:33 Cognition Cognitive impairment 04/29/25 16:33 Fall Total Score 88 04/29/25 16:33 Level of Risk Maximum Risk 04/29/25 16:33 Problems (Last Updated 04/25/25 @ 16:12 by Edwin Escalante) ACP (advance care planning) (Acute) GI bleeding (Chronic) v v v v v v v v v Sending and/or Receiving Nurses: Please use comment section below to note any information pertinent to the patient hand-off not included above. Information / Comments: Report received from: Called ED at 17:54 to get report from [facility]. Last VS: 112/53, 96, 19, 36.9, 99% ra
[2025-04-29 18:10] LABS: Abs Immature Grans 0.03 10^3/uL (0.0-0.06); Absolute Basophil Count 0.02 10^3/uL (0.0-0.2); Absolute Eosinophil Count 0.15 10^3/uL (0.0-0.7); Absolute Lymphocyte Count 1.03 10^3/uL (1.2-3.4); Absolute Monocyte Count 0.82 10^3/uL (0.1-0.8); Absolute Neutrophil Count 7.73 10^3/uL (1.2-6.7); Basophils % 0.2 %; Eosinophils % 1.5 %; HCT 29.3 % (36.0-46.0); HGB 9.6 g/dL (11.2-15.7); Immature Grans % 0.3 %; Lymphocytes % 10.5 %; MCH 28.7 pg (27.0-33.0); MCHC 32.8 % (32.0-36.0); MCV 88 fL (80-95); MPV 10.2 fL (8.0-11.0); Monocytes % 8.4 %; Neutrophils % 79.1 %; RBC 3.35 10^6/uL (3.93-5.22); RDW 15.7 % (11.7-14.6); RDW-SD 50.2 fL; WBC 9.78 10^3/uL (4.4-10.8)
[2025-04-29 18:16] VITALS: BP 118/55; PULSE 63; RESP 19; TEMP 36.7; O2SAT 98
[2025-04-29 18:24] LABS: ALT 13 U/L (14-59); AST 26 U/L (15-37); Albumin 2.9 g/dL (3.4-5.0); Alkaline Phosphatase 51 U/L (46-116); Anion Gap 12.6 mmol/L (3-11); Bilirubin, Total 2.6 mg/dL (0.2-1.0); CO2 17.4 mmol/L (21.0-32.0); Calcium 10.3 mg/dL (8.5-10.1); Chloride 111 mmol/L (98-107); Estimated GFR 10.92 (mL/min/1.73m2); Glucose 106 mg/dL (74-106); Magnesium 1.4 mg/dL (1.8-2.4); Potassium 4.5 mmol/L (3.5-5.1); Sodium 141 mmol/L (136-145); Total Protein 6.3 g/dL (6.4-8.2)
[2025-04-29 18:26] LABS: BUN 98 mg/dL (7-18); CREATININE 3.8 mg/dL (0.55-1.02)
[2025-04-29 18:30] LABS: Diff Comment PLT Morph Reviewed; Platelet Count 90 10^3/uL (130-400); RBC Morphology Normal
[2025-04-29 18:33] VITALS: BP 118/55; PULSE 63; RESP 19; TEMP 36.7; O2SAT 98
[2025-04-29 20:17] VITALS: BP 107/41; PULSE 60; RESP 18; TEMP 36.5; O2SAT 90
[2025-04-29] MEDS: Miconazole 2% Topical Powder 85 GM BTL TP (21:15)
[2025-04-29 23:17] VITALS: BP 114/48; PULSE 62; RESP 17; TEMP 36.7; O2SAT 98
[2025-04-30] VITALS (7 sets, daily range): BP systolic 98–120; BP diastolic 35–61; PULSE 60–132; RESP 5–18; TEMP 35.6–36.7; O2SAT 95–97
[2025-04-30 07:19] LABS: ALT 10 U/L (14-59); AST 24 U/L (15-37); Albumin 2.4 g/dL (3.4-5.0); Alkaline Phosphatase 42 U/L (46-116); Anion Gap 11.3 mmol/L (3-11); Bilirubin, Total 2.2 mg/dL (0.2-1.0); CO2 15.7 mmol/L (21.0-32.0); CREATININE 3.5 mg/dL (0.55-1.02); Calcium 9.7 mg/dL (8.5-10.1); Chloride 111 mmol/L (98-107); Estimated GFR 12.05 (mL/min/1.73m2); Glucose 99 mg/dL (74-106); Potassium 4.3 mmol/L (3.5-5.1); Sodium 138 mmol/L (136-145); Total Protein 5.5 g/dL (6.4-8.2)
[2025-04-30 07:24] LABS: BUN 97 mg/dL (7-18)
--- NOTE | 2025-04-30 08:56 | INITIAL_ITS ---
Date of service: 04/30/25 Time of Service: 16:05 Care Management Initial Assmt Initial Assessment Reason for Hospitalization: Failure to thrive Functional Status/Living Situation Patient Presentation: Annamarie was lying in bed accompanied by her when CM arrived. Annamarie was discharged on 04/28/25 and was reportedly going home, on hospice. She presented to the ED, yesterday 04/29/25, for failure to thrive. Per report, at the time of hospice admission, her children stated to hospice, they are not willing and were not aware they would need to provide caregiver services. Per hospice, Annamarie was refusing these services and reportedly did not have a safe caregiver, so RN sent Annamarie to the ED by EMS; Hospice admission did not happen. Annamarie states to this writing and Lyubov from home health, that she wishes to get stronger and start walking again. At this time, Annamarie is agreeable to SNF referrals to all facilities other than [facility]. Palliative has been consulted and will revisit goals of care with Annamarie again. CM will continue to follow. Town of Residence: [place] Resides with: Spouse (Mayur) Significant Other/Family: Local Caregiver/Guardian: n/a Natural Supports: Mayur and Daughter and son in law, Iris and Hipolito Caban Employment Status: Retired (Worked at [employer] for 17 years) Instrumental Activities of Daily Living (ADLs): Requires support Medications Medication Management: No Issues/Barriers identified Physical Functioning/Mobility Assistive Device: 4WW Advance Directives Advance Directives: Do you have an Advance Directive: N 04/30/23 08:38 AD On File at [facility]: N 04/30/23 08:38 Date Asked 04/29/25 04/29/25 16:28 AD Date Reviewed COLST On File at [facility] Yes 04/29/25 16:28 COLST Date Scanned Code Status Resuscitation Status DNR/DNI Portal Pt does not currently have a portal and education provided: Yes Insurance Coverage/Financial Issues Insurance: IRA HAMMOND Adv - [id number] Care Team Visit Care Team Role Provider Type Dede Miller Primary Care Provider NON-[facility] STAFF PHYSICIAN Lindy Joshua Other Providers BUFFING WHEEL OPERATOR Dede Hill Other Providers BUFFING WHEEL OPERATOR Frances García Other Providers BUFFING WHEEL OPERATOR Ignacio Rodriguez Other Providers OTHER Daphnie Sewell RN Other Providers BUFFING WHEEL OPERATOR Eve Saleh Other Providers BUFFING WHEEL OPERATOR Maggi Bernard Emergency Provider NURSE PRACTITIONER Arsh Saleh MD Admit Provider MD [facility] STAFF PHYSICIAN Attending Provider Discharge Potential Discharge Needs: PCP F/U Appt and Other (22/06 Caregivers to obtain hospice vs. SNF) Anticipated Barriers to Discharge: Other (caregivers willing to provide support for hospice support) Patient/Family Education Needs: Review discharge instructions, discuss Ask Me Three Transportation: Private vehicle Plan: Anticipate Annamarie will be discharged to SNF to [facility], prior to returning home, once medically ready with a bed offer. Annamarie will follow up with facility providers and continue per her plan of care. Annamarie will transport via [facility]. CM will continue to follow. Social Determinants of Health Screening Will the Patient Participate in the Screening?: Declined to provide PFSH All Active Problems (Updated 04/29/25 @ 19:03 by Maggi Bernard) Hypomagnesemia (Acute) Adult failure to thrive (Acute) Ileum ulcer (Acute) Palliative care encounter (Acute) ACP (advance care planning) (Acute) Encounter for hospice care discussion (Acute) Unintentional weight loss (Acute) GI bleeding (Chronic) PSVT (paroxysmal supraventricular tachycardia) (Acute) At high risk for skin breakdown (Acute) Abn react-external stoma (Acute) Elevated serum creatinine (Acute) Chronic pain in left foot (Acute) Medical History (Updated 04/29/25 @ 19:03 by Maggi Bernard) Pacemaker Hypercholesterolemia Stage 4 chronic kidney disease H/O malignant neoplasm of colon History of breast cancer CONTRERAS (nonalcoholic steatohepatitis) Cirrhosis Ischemic neuropathy of foot PAD (peripheral artery disease) Hypertension Paroxysmal atrial fibrillation Surgical History Hemicolectomy (06/30/13) Right, 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 Park @ [facility] [place], 2015-no recurrence Social History Smoking/Tobacco Use Status: Never Smoking risk assessment performed?: Yes Alcohol Intake: never Drug use: Never Substance use type: does not use Housing: house Do you feel safe at home: Yes Do you feel safe in your relationship?: Yes Readmission Within the Past 30 Days Yes or No: Yes Date of First Admission Date of 1st Admission: 04/26/25 Date of this Admission Date of Admission: 04/29/25 This admission was: Through ED Office Visit Since 1st Admission Have you seen your PCP in the office since discharge?: No Had an appointment Been Scheduled?: No Speicalist Appointments Have you seen any other specialist since your 1st Admission?: Yes Date you saw the Specialist: 04/29/25 Specialist Seen: blade balancer went in yesterday. Per Lyubov at [facility], they called EMS and sent pt to [facility] due to having acute illness and daughter refusing to sit with Annamarie, while he went to the ED. I. Interview patient and/or Family Difficulty reaching your doctor or getting an office appt?: No Have you had trouble purchasing/ or taking medication?: No Describe barriers fpr purchasing or taking medication: n/a Have you had trouble with getting meals at home?: No Did you feel ready for discharge when you left the last time: Yes Were services received that you thought were set up on disch: Yes What services were received?: Hospice Did you call your physician beore you came to the ED?: No Did your physician tell you to come in?: No How do you think you became sick enough to come back?: Patient states Im not sure what happened, one minute I was home and now im here. ED visits How many ED visits in the past 12 months: 6 Assessment for Readmission Summary of readmission circumstances, based upon interviews: pt was brought in with EMS after reportedly refusing hospice services today. Per son, she did not refuse hospice. Per son, there is nobody to provider care to her.
[2025-04-30] MEDS: MORPHine Oral Concentrate 20 MG/ML PO (09:19)
[2025-04-30] MEDS: Heparin 5,000 UNITS/ML VIAL 5000 UNITS SC ×2 (12:13→20:01)
[2025-04-30 12:54] LABS: Bilirubin Negative (Negative); Blood Large (Negative); Clarity Sl Cloudy (Clear); Glucose Negative (Negative); Ketones Negative (Negative); Leukocyte Esterase Large (Negative); Nitrite Negative (Negative); Urobilinogen 0.2 mg/dL (Up to 0.2); pH >= 9.0 (5-8)
[2025-04-30 13:04] LABS: Bacteria Many HPF (Negative); Crystals Many Triple Phos HPF (Negative); Epithelial Cells Moderate HPF (Negative); Other Cells Few Transitional (Negative)
[2025-04-30 13:05] LABS: C & S Indicated? Yes; Casts Negative LPF (Negative); Mucus Moderate (Negative)
[2025-04-30] MEDS: Miconazole 2% Topical Powder 85 GM BTL TP ×2 (13:14→21:58)
--- NOTE | 2025-04-30 15:52 | W.PM.PROGNOT ---
Date of Service Date of service: 04/30/25 Time of Service: 15:52 Assessment and Plan Assessment and plan (1) Acute renal failure: Status: Resolved Assessment and plan: Acute renal failure on chronic stage 4 CKD. She was acidotic and hyperkalemic on admission, declined transfer to [facility] to consider hemodyalysis. Secondary to blood/fluid loss with hypotension, see below. Fortunately, she continues adequate urine output, acidosis slowly improving. GFR imrpoving. Never wants dialysis. GOC- remain home, focus on QOL. 04/29/25 Awaiting labs but considering pt's wishes, this will only be important if there are significant electrolyte abnormalities 04/30/25 Pt renal indices are poor but appear stable. Latest bun/cr 87/3.5 Pt does not want HD Electrolytes WNL (2) Cirrhosis: Assessment and plan: Hx CONTRERAS. Compensated clinically. (3) Paroxysmal atrial fibrillation: Assessment and plan: She has pacemaker. (4) Hyperkalemia: Status: Resolved Assessment and plan: Improved. 04/29/25 labs pending 04/30/25 resolved, currently at 4.3 (5) ACP (advance care planning): Status: Acute Assessment and plan: Annamarie is an 89 year old female currently hospitalized with Acute on chronic renal failure, hyperkalemia with no plans to ever do dialysis. She also has past medical Hx significant for cirrhosis r/t CONTRERAS, GI bleeding from stoma (recurrent), no surgery indicated per general surgery consultation, PAF. She met with palliative earlier on this admission. GOC discussion today: she prefers to be home, not in hospital, prefers to focus on comfort/QOL. She has repeated several times she never wants dialysis. She is DNR/DNI, COLST completed. Reviewed hospice and discussed with daughter, both agree this is in line with her goals. Iris, daughter willing to sign on as primary caregiver, she already helps a lot. Annamarie lives with her elderly , Mayur, who also helps her. Refer to hospice. PT recommends: Pt would benefit from hospital bed, commode, bedside table and wheelchair vs transport chair for locomotion within home. 04/30/25 Pt was on hospice and will d/w CM tomorrow about plan of care. Physical therapy consult pending Subjective Subjective Interval history since last seen: pt without complaint this am Exam Narrative Exam Narrative: HEENT-NCAT MMM NECK-NO LAD NO JVD CV-RRR NO MRG LUNNGS-CTAB NO AMU ABD-SNTNDBSA ostomy in place EXT-NO CCE PSYCH-AAO X3 Objective Last Vital Signs Temp 35.6 C L 04/30/25 15:28 Pulse 64 04/30/25 15:28 Resp 14 04/30/25 15:50 BP 109/54 L 04/30/25 15:28 Pulse Ox 97 04/30/25 15:28 Laboratory Results - last 24 hr 04/29/25 04/30/25 04/30/25 17:50 05:55 12:25 WBC 9.78 RBC 3.35 L Hgb 9.6 L Hct 29.3 L MCV 88 MCH 28.7 MCHC 32.8 RDW 15.7 H Plt Count 90 L MPV 10.2 Immature Gran % 0.3 Neutrophils % 79.1 Lymphocytes % 10.5 Monocytes % 8.4 Eosinophils % 1.5 Basophils % 0.2 Nucleated RBC % 0.0 Absolute Neutrophils 7.73 H Absolute Lymphocytes 1.03 L Absolute Monocytes 0.82 H Absolute Eosinophils 0.15 Absolute Basophils 0.02 RBC Morphology Normal Sodium 141 138 Potassium 4.5 4.3 Chloride 111 H 111 H Carbon Dioxide 17.4 L 15.7 L Anion Gap 12.6 H 11.3 H BUN 98 H* 97 H* Creatinine 3.8 H* 3.5 H Est GFR (CKD-EPI 2020) 10.92 12.05 Glucose 106 99 Calcium 10.3 H 9.7 Magnesium 1.4 L Total Bilirubin 2.6 H 2.2 H AST 26 24 ALT 13 L 10 L Alkaline Phosphatase 51 42 L Total Protein 6.3 L 5.5 L Albumin 2.9 L 2.4 L TSH 1.10 Urine Color Yellow Urine Clarity Sl Cloudy Urine pH >= 9.0 H Ur Specific [place] 1.010 Urine Protein 100 H Urine Ketones Negative Urine Blood Large H Urine Nitrite Negative Urine Bilirubin Negative Urine Urobilinogen 0.2 Ur Leukocyte Esterase Large H Urine RBC 10-20 H Urine WBC 10-20 H Ur Epithelial Cells Moderate Urine Crystals Many Triple Phos Urine Bacteria Many Urine Casts Negative Urine Mucus Moderate Urine Other Few Transitional Ur Culture Indicated? Yes Urine Glucose Negative Time Spent with Patient Time Spent with Patient: 25-34 minutes Time was spent: preparing to see the patient(eg.review tests), obtaining and/or reviewing separately otained hiistory, ordering medications,tests, procedures, referring, communicating with other health care mgr, indepentently interpreting results, counseling the patient and care coordination
[2025-04-30] MEDS: Gabapentin 100 MG CAP 200 MG PO (19:55)
[2025-04-30] MEDS: Carvedilol 3.125 MG TAB PO (19:56)
--- NOTE | 2025-04-30 20:12 | NUR.NOTE ---
reviewed VS and Meds held this am with Miriam Jaramillo MS RN report of HR > 120's and resp distress. advised giving coreg that is due now with 30 onset and calling MD for short acting replacements of her AM cardizem CR and metoprolol CR? issued tele and pending MD order for same
[2025-05-01] VITALS (7 sets, daily range): BP systolic 82–99; BP diastolic 46–64; PULSE 52–134; RESP 12–22; TEMP 36.1–36.8; O2SAT 92–98
[2025-05-01] MEDS: Heparin 5,000 UNITS/ML VIAL 5000 UNITS SC ×2 (04:15→12:33)
[2025-05-01 07:34] LABS: Abs Immature Grans 0.01 10^3/uL (0.0-0.06); Absolute Lymphocyte Count 0.84 10^3/uL (1.2-3.4); Absolute Monocyte Count 0.36 10^3/uL (0.1-0.8); Absolute Neutrophil Count 2.85 10^3/uL (1.2-6.7); Eosinophils % 2.4 %; HCT 22.8 % (36.0-46.0); HGB 7.2 g/dL (11.2-15.7); Immature Grans % 0.2 %; Lymphocytes % 20.2 %; MCH 28.1 pg (27.0-33.0); MCHC 31.6 % (32.0-36.0); MCV 89 fL (80-95); MPV 10.5 fL (8.0-11.0); Monocytes % 8.7 %; Neutrophils % 68.5 %; RBC 2.56 10^6/uL (3.93-5.22); RDW 15.3 % (11.7-14.6); RDW-SD 49.4 fL; WBC 4.16 10^3/uL (4.4-10.8)
[2025-05-01 07:50] LABS: Platelet Count 83 10^3/uL (130-400)
[2025-05-01 07:53] LABS: ALT 15 U/L (14-59); AST 37 U/L (15-37); Albumin 2.4 g/dL (3.4-5.0); Alkaline Phosphatase 57 U/L (46-116); Anion Gap 11.6 mmol/L (3-11); Bilirubin, Total 1.4 mg/dL (0.2-1.0); CO2 18.4 mmol/L (21.0-32.0); Calcium 9.5 mg/dL (8.5-10.1); Chloride 112 mmol/L (98-107); Estimated GFR 10.92 (mL/min/1.73m2); Glucose 96 mg/dL (74-106); Potassium 4.6 mmol/L (3.5-5.1); Sodium 142 mmol/L (136-145); Total Protein 5.4 g/dL (6.4-8.2)
[2025-05-01 07:55] LABS: BUN 103 mg/dL (7-18); CREATININE 3.8 mg/dL (0.55-1.02)
--- NOTE | 2025-05-01 09:24 | IN_ITS ---
PT Notes Visit Reasons: failure to thrive Physical Therapy Inpatient Initial Evaluation Date: 05/01/2025 Referring Doctor: Arsh Saleh MD PT Orders: PT CONSULT: Eval/Treat Precautions: Fall risk. Standard precautions in place. Ileostomy in place. Pacemaker in situ. Patient Profile/Admitting Diagnosis: Annamarie is an 89-year-old female who recently was admitted to this hospital for ABBIE, hypovolemic shock, and PAF and came home under hospice care. She represented to the ED on 04/29/2025 with diagnosis of failure to thrive. She was admitted for management of acute renal failure, advancing cirrhosis, PAF, hyperkalemia, and adult failure to thrive. She is DNR/DNI. PMHx: All Active Problems (Reviewed on 05/01/25 @ 09:24 by Cecilia Moscoso DPT) Ileum ulcer (Acute) Palliative care encounter (Acute) ACP (advance care planning) (Acute) Encounter for hospice care discussion (Acute) Unintentional weight loss (Acute) GI bleeding (Chronic) PSVT (paroxysmal supraventricular tachycardia) (Acute) At high risk for skin breakdown (Acute) Abn react-external stoma (Acute) Elevated serum creatinine (Acute) Chronic pain in left foot (Acute) Medical History (Reviewed on 05/01/25 @ 09:24 by Cecilia Moscoso DPT) Pacemaker Hypercholesterolemia Stage 4 chronic kidney disease H/O malignant neoplasm of colon History of breast cancer CONTRERAS (nonalcoholic steatohepatitis) Cirrhosis Ischemic neuropathy of foot PAD (peripheral artery disease) Hypertension Paroxysmal atrial fibrillation Surgical History (Reviewed on 05/01/25 @ 09:24 by Cecilia Moscoso DPT) Hemicolectomy (06/30/13) Right, 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 Park @ [facility] [place]-no recurrence Social History/Home Situation: Lives with Mayur in a mobile home with 3 steps to enter with rails on B sides. Per , up intil about 2 weeks ago, patient was ambulatory with her 4WW, was able to move short distances with no AD. Patient and has been managing patient's ileostomy tube for over 20 years now. Equipment Owned/DME: 4WW Subjective: Patient verbalized holdin stevo on any standing activities or any movement as she does not feel that she can tolerate anythig right now. She did agree to sit at edge of bed and try standing up with help of 2-3 LNAs for safety. Became very anxious as her pain level in B feet and R hip went up as she was being assisted to standing by Pt adn CLAIR Martineza with stand by assist of Nurse Eusebia. stated that about 2 weeks ago, patient was managing inddor distances with her 4WW. Patient was scheduled to see an orthopedic MD for a scheduled R hip injection but this got postponed due to this hospitalization. Objective: General Observation: Resting in bed. CLAIR Coronel present in room assisting Pt for safety. Mental Status: Alert and oriented as to person and place. Anxious about Mayur as she feels he definitely need to rest. Able to follow double-step commands. Pain: Reported pain in B feet and R hip with standing up from edge of bed ROM: Right Upper Extremity: Shoulder Flexion allows up to about 90 degrees. Shoulder abduction allows up to about 60 degrees. Elbow flexion WFL. Wrist flexion WFL. Functional opening and closing of hand WFL. Shoulder Flexion allows up to about 90 degrees. Shoulder abduction allows up to about 60 degrees. Elbow flexion WFL. Wrist flexion WFL. Functional opening and closing of hand WFL.Shoulder Flexion WFL. Shoulder abduction WFL. Elbow flexion WFL. Wrist flexion WFL. Functional opening and closing of hand WFL. Right Lower Extremity: Hip flexion allows up to about 60 degrees before report of pain. Hip abduction about 10 degrees before needing help prior to sitting up at edge of bed. Knee flexion 30 degrees to 90 degrees. Kjee extension -30 degrees. Ankle dorsiflexion to neutral only. Ankle plantarflexion WFL. Left Lower Extremity: Hip flexion WFL. Hip abduction WFL. Knee flexion WFL. Ankle dorsiflexion to neutral only. Ankle plantarflexion WFL. Strength: Right Upper Extremity: Shoulder flexors 3-/5. Shoulder abductors 3-/5. Elbow flexors 3/5. Elbow extensors 3/5. Textile Machinery Sales Representative weak but functional. Left Upper Extremity:Shoulder flexors 3-/5. Shoulder abductors 3-/5. Elbow flexors 3/5. Elbow extensors 3/5. Textile Machinery Sales Representative weak but functional. Right Lower Extremity: Hip flexors 3-/5. Hip abductors 3-/5. Knee flexors 3-/5. Knee extensors 3-/5. Ankle dorsiflexors 3-/5. Ankle plantarflexors 4-/5. Left Lower Extremity:Hip flexors 3+/5. Hip abductors 3+/5. Knee flexors 3/5. Knee extensors 3/5. Ankle dorsiflexors 3-/5. Ankle plantarflexors 4-/5. Bed Mobility/Transfers: Moderate verbal cueing provided for use of B hands as needed for support, movement sequence, AD management, and posture to reduce fall risk and minimize pain report Supine to sit moderate assist with HOB at 30 degrees Sit to stand moderate assist 2 unable to and anxious about putting too much weight through the R LE due to pain Stand to sit moderate assist of 2 Bed to chair unable to initiate and complete Gait: Unable to initiate and complete due to worsening pain through R hip and B ankles Balance: Static Sitting: Good Dynamic Sitting: Fair Static Standing: Unable to test. Patient was unable to fully stand up and adequately distribute weight through B LE due to pain report despite extensive assistance of PT and INTEGRATIVE MEDICINE PHYSICIAN Berna Dynamic Standing: Unable to test Special Tests: Mobility Limitations Standardized Measure [facility] AM-PAC 6 clicks Basic Mobility Inpatient Short Form: Raw Score: 8 CMS Score:87% deficit 4-stage Balance Test: Deferred Informed Consent/Education: Patient instructed in purpose of PT consult and plan of care. Agreeable to proceed with established PT POC to achieve personal goals. Assessment: Pain in R hip and B ankles appeared to be limiting patient's ability to move at this time to the point of increasing patient's anxiety when attempt to stand her up was made. Will await what palliative/hospice care team will decide with patient/ today in terms of mobility training and strengthening. As of conclusion of this morning evaluation, patient wanted to hod off on any mobilizations until pain is much controlled. Per the and the patient, patient was, about 2-3 weeks ag,o able to move inside the house with a 4WW and could use the grocery cart while at the grocery store. Red calcaneal erythema worse on the R than L. palpation of dorsum of foot at MTP joint level cause patient to withraw becasue of pain more on the r than L. Patient is an 89-year-old female who presents with clinical signs and symptoms consistent with current/admitting diagnoses that have resulted to mobility limitations, gait instability, generalized weakness, and impairment of motor control as demonstrated by the following impairment level findings: 1. Decreased strength to BUE/ BLE major muscle groups 2. Impaired standing balance 3. Limitation of joint range of motion in B shoulders, B Ankles 4. Impaired functional activity tolerance 5. Pain through R hip and B ankles Impairments are contributing to the following functional limitations: 1. Inability to safely ambulate without assistive device 2. Increase completion time for mobility ADL performance 3. Increased fall risk Patient is assessed as a 62232 high complexity based on the following: History: 89-year-old female with impairment level findings, functional limitations, and past medical history as indicated above Examination: Demonstrable impairment in strength, balance, and mobility level with underlying impairments and functional limitations as documented above with BOSTON_AMPA score of 83% functional deficit Presentation: Evolving Decision Makin high complexity Goals X1 week 1. Supine-Sit independent 2. Sit-Supine independent 3. Sit-Stand independent 4. Stand-Sit independent 5. Bed-Chair independent 6. Chair-Bed independent 7. Independent gait on level surface with use of least restrictive device for at least 300 feet without report of pain nor dyspnea 8. Independent stair negotiation while holding onto bilateral rails for at least 10 steps without report of pain nor dyspnea 9. Independent with home exercise program 10. Good static and dynamic standing balance/tolerance Plan of Care/Treatment Plan: 1-2x/day, 7 days/week x 1 week. Plan of care has been reviewed with the HAMMER HEATER providing the service under Physical Therapy direction. Initiate Physical Therapy intervention for strengthening, bed mobility, transfers, gait, stairs, balance training, use of assistive device. DISCHARGE RECOMMENDATIONS: SNF vs LTC due to inability of caregiver at home to provide needed care as he himself is not doing well medically TREATMENT CODE/TIME: 31598 x 30 minutes, 45402 x 24 minutes 2 units (9:24-10;18). Thank you for the opportunity to participate in the care of this patient. Cecilia Moscoso PT, DPT, CLT [facility] [place], [place]
--- NOTE | 2025-05-01 13:58 | W.PM.PROGNOT ---
Date of Service Date of service: 05/01/25 Time of Service: 13:58 Assessment and Plan Assessment and plan (1) Acute renal failure: Status: Resolved Assessment and plan: Acute renal failure on chronic stage 4 CKD. She was acidotic and hyperkalemic on admission, declined transfer to [facility] to consider hemodyalysis. Secondary to blood/fluid loss with hypotension, see below. Fortunately, she continues adequate urine output, acidosis slowly improving. GFR imrpoving. Never wants dialysis. GOC- remain home, focus on QOL. 04/29/25 Awaiting labs but considering pt's wishes, this will only be important if there are significant electrolyte abnormalities 04/30/25 Pt renal indices are poor but appear stable. Latest bun/cr 87/3.5 Pt does not want HD Electrolytes WNL 05/01/25 Pt with acute on chronic renal failure. Currently bun/cr are 103/3.8 respectively. Electrolytes are ok at this point (2) Cirrhosis: Assessment and plan: Hx CONTRERAS. Compensated clinically. (3) Paroxysmal atrial fibrillation: Assessment and plan: She has pacemaker. (4) Hyperkalemia: Status: Resolved Assessment and plan: Improved. 04/29/25 labs pending 04/30/25 resolved, currently at 4.3 (5) ACP (advance care planning): Status: Acute Assessment and plan: Annamarie is an 89 year old female currently hospitalized with Acute on chronic renal failure, hyperkalemia with no plans to ever do dialysis. She also has past medical Hx significant for cirrhosis r/t CONTRERAS, GI bleeding from stoma (recurrent), no surgery indicated per general surgery consultation, PAF. She met with palliative earlier on this admission. GOC discussion today: she prefers to be home, not in hospital, prefers to focus on comfort/QOL. She has repeated several times she never wants dialysis. She is DNR/DNI, COLST completed. Reviewed hospice and discussed with daughter, both agree this is in line with her goals. Iris, daughter willing to sign on as primary caregiver, she already helps a lot. Annamarie lives with her elderly , Mayur, who also helps her. Refer to hospice. PT recommends: Pt would benefit from hospital bed, commode, bedside table and wheelchair vs transport chair for locomotion within home. 04/30/25 Pt was on hospice and will d/w CM tomorrow about plan of care. Physical therapy consult pending 05/01/25 Palliative care to see today. Will hopefully be able to elucidate goals of care Subjective Subjective Interval history since last seen: Pt wanting to try PT but is significantly hindered by BLE pain as well as generalized weakness. Not able to work with PT today for very long Exam Narrative Exam Narrative: HEENT-NCAT MMM NECK-NO LAD NO JVD CV-RRR 03/05 RANJITH LUNNGS-CTAB NO AMU ABD-SNTNDBSA ostomy in place EXT-NO CCE PSYCH-AAO X3 Objective Last Vital Signs Temp 36.1 C L 05/01/25 12:52 Pulse 113 H 05/01/25 12:52 Resp 12 05/01/25 12:52 BP 97/53 L 05/01/25 12:52 Pulse Ox 92 05/01/25 12:52 Laboratory Results - last 24 hr 05/01/25 06:42 WBC 4.16 L RBC 2.56 L Hgb 7.2 L D Hct 22.8 L MCV 89 MCH 28.1 MCHC 31.6 L RDW 15.3 H Plt Count 83 L MPV 10.5 Immature Gran % 0.2 Neutrophils % 68.5 Lymphocytes % 20.2 Monocytes % 8.7 Eosinophils % 2.4 Basophils % 0.0 Nucleated RBC % 0.0 Absolute Neutrophils 2.85 Absolute Lymphocytes 0.84 L Absolute Monocytes 0.36 Absolute Eosinophils 0.10 Absolute Basophils 0.00 Sodium 142 Potassium 4.6 Chloride 112 H Carbon Dioxide 18.4 L Anion Gap 11.6 H BUN 103 H* Creatinine 3.8 H* Est GFR (CKD-EPI 2020) 10.92 Glucose 96 Calcium 9.5 Total Bilirubin 1.4 H AST 37 ALT 15 Alkaline Phosphatase 57 Total Protein 5.4 L Albumin 2.4 L Time Spent with Patient Time Spent with Patient: 25-34 minutes Time was spent: preparing to see the patient(eg.review tests), obtaining and/or reviewing separately otained hiistory, ordering medications,tests, procedures, referring, communicating with other health manager urgent care, indepentently interpreting results, counseling the patient and care coordination
--- NOTE | 2025-05-01 14:51 | NUR.NOTE ---
Nursing Note: this rn attempted to call daughter Iris, who is on HIPPA, back for an update. No answer at [phone])
--- NOTE | 2025-05-01 15:55 | PHA.REVIEW2 ---
Pharmacy Admission Review Admission Clinical Review Admission Pharmacy Review: Hypomagnesemia (Acute) Adult failure to thrive (Acute) ACP (advance care planning) (Acute) Elevated serum creatinine (Acute) Resuscitation Status DNR/DNI Height 4 ft 10 in Weight 66.1 kg Pharmacy Admission Review Renal Dosing Renal Dosing: BUN 103 mg/dL (7-18) H* 05/01/25 06:42 Creatinine 3.8 mg/dL (0.55-1.02) H* 05/01/25 06:42 Medications needing adjustments: Reviewed List of meds needing interventions: NO MEDS NEED ADJUSTMENT Anticoagulation Anticoagulation: Hgb 7.2 g/dL (11.2-15.7) L D 05/01/25 06:42 Hct 22.8 % (36.0-46.0) L 05/01/25 06:42 Plt Count 83 10^3/uL (130-400) L 05/01/25 06:42 Creatinine 3.8 mg/dL (0.55-1.02) H* 05/01/25 06:42 DVT Prophylaxis: Reviewed Medications: Heparin Opiate Usage Evaluate Pain Scale/Pains Meds: Reviewed Scheduled Bowel Reg ordered if on Opiates?: Yes Relevant Labs Relevant Labs: Sodium 142 mmol/L (136-145) 05/01/25 06:42 Potassium 4.6 mmol/L (3.5-5.1) 05/01/25 06:42 Chloride 112 mmol/L (98-107) H 05/01/25 06:42 Magnesium 1.4 mg/dL (1.8-2.4) L 04/29/25 17:50 Electrolytes, C-Reactive P, ESR: Reviewed DM Control DM Control: Reviewed Cardiac Review BP, HR, EF%: Reviewed QTc Review QTc: Reviewed List meds needing interventions: [id number] IV to PO Switch IV Medications: Reviewed Home Meds Home Med List reviewed: Reviewed
--- NOTE | 2025-05-01 16:11 | PCNE_ITS ---
Date of service: 05/01/25 Time of Service: 15:15 History of Present Illness Narrative: Mrs. De Luna is an 89 y/o F currently hospitalized in ICU 2/2 FTT; PMHx sig for CKD (stage 4), HLD, HTN, h/o breast and colon cancer (s/p ileostomy 2012), CONTRERAS w/cirrhosis, PAD, PAF Recent hospitalization 2/2 ABBIE, d/c'd on 04/28 w/plan for hospice admission on 04/29; unfortunately when hospice presented for admission her was being transferred to ED w/seizure/stroke? concerns, her daughter refused admission d/t unable to provide caregiving requirements, Annamarie was transferred at same time - currently hospitalized for FTT per Iris: unable to provide 24/7 care, nor is any other family members. Mayur is not fit to provide care; would like to pursue NH placement, whether for SNF or transition to LTC, pending recovery of strength. [facility]ris is currently providing nearly full IADL supports at this time; Annamarie has gone to [facility] in the past, not a great experience, preference to consider [facility] d/t closer location; open to to [place] or [place] location, would be able to get there easily enough, confirms Annamarie did work at [employer] for 17 years, that may be a nice fit for her per staff: struggling w/fear of dying, says she is not ready, and also that she thinks it may be soon. no active complaints; agreeable yesterday to SNF referrals being sent; potentially bed avail at [facility] Annamarie reports some pain in RLE, denies need for medications at this time; denies other concerns or needs. open minded to SNF, goal of working w/therapy to get stronger, clau w/walking goals. goals are to focus on comfort and QoL, would not want to be transferred, no aggressive interventions/procedures, preference to be out of the hospital and stay out in future Annamarie reports she is unsure whom she would want to make decisions for her if she couldn't make them, [facility] may be a good option but she would like to defer this today; confirms COL DNR/I, comfort directed care - she is okay w/ongoing VS monitoring, but would prefer it was just as needed or only once daily - okay w/ongoing BS monitoring w/glucometer, important while Im here Assessment and Plan Assessment and plan (1) Palliative care encounter: Status: Acute Assessment and plan: PC will continue to follow as needed during this hospital stay, anticipate discharge to SNF prior to next avail on 05/03 - SNF referrals sent today, please make sure [facility] also sent (2) Adult failure to thrive: Status: Acute (3) ACP (advance care planning): Status: Acute Assessment and plan: reviewed care preferences with both Annamarie and Iris, comfort directed care, limited interventions w/comfort/quality as goal reviewed goal of getting stronger, engaging in therapy, initial discharge to SNF w/goal of improving ambulatory status to walking, may consider relocation home at that time, this is highly variable however d/t no ADL caregiver avail in home reviewed local options for SNF, options for hospice in home w/family caregivers vs [facility] vs SNF; preference for SNF at this time; they do not have finances to cover private pay caregiving, nor do they qualify for Medicaid at this time reviewed [facility], preference likely [facility], refuses paperwork today, COLST completed last visit DNR/I, comfort directed care, no FT, only limited IVF/abx with comfort as goal recommend limit VS to only PRN or once daily or qshift change; okay w/continuing BS monitoring review of orders appropriate for comfort directed care - please consider low dose morphine or Ativan for pain or anxiety if needed spent 25m w/ACP - w/Iris telephone call for 18m (4) Encounter for hospice care discussion: Status: Acute Assessment and plan: while she is eligible for hospice at this time, she does not have the appropriate home supports for admission at this time she would like to consider SNF for ongoing therapy to get as strong as possible, w/limited interventions as possible (5) Deficit in activities of daily living (ADL): Status: Acute Review of Systems Narrative: as per HPI PFSH All Active Problems (Updated 05/01/25 @ 16:28 by Elyse Silverman NP) Deficit in activities of daily living (ADL) (Acute) Hypomagnesemia (Acute) Adult failure to thrive (Acute) Ileum ulcer (Acute) Palliative care encounter (Acute) ACP (advance care planning) (Acute) Encounter for hospice care discussion (Acute) Unintentional weight loss (Acute) GI bleeding (Chronic) PSVT (paroxysmal supraventricular tachycardia) (Acute) At high risk for skin breakdown (Acute) Abn react-external stoma (Acute) Elevated serum creatinine (Acute) Chronic pain in left foot (Acute) Medical History Pacemaker Hypercholesterolemia Stage 4 chronic kidney disease H/O malignant neoplasm of colon History of breast cancer CONTRERAS (nonalcoholic steatohepatitis) Cirrhosis Ischemic neuropathy of foot PAD (peripheral artery disease) Hypertension Paroxysmal atrial fibrillation Surgical History Hemicolectomy (06/30/13) Right, 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 Park @ [facility] [place], 2015-no recurrence Social History Smoking/Tobacco Use Status: Never Smoking risk assessment performed?: Yes Alcohol Intake: never Drug use: Never Substance use type: does not use Housing: house Do you feel safe at home: Yes Do you feel safe in your relationship?: Yes Exam Narrative Exam Narrative: General: older adult female, lying in room w/eyes closed, wakes easily, ill appearing; no acute distress HEENT: [place], MMM, normocephalic, atraumatic; provided light oral care; swallows water appropriately Resp: even and unlabored, speech limited d/t fatigue to 1-2 sentences, no SOB, limited by energy; no cough or audible wheeze Psych: pleasant, cooperative, speech clear; refuses to answer, mostly around ACP conversations, answers I don't know often; insight/judgment limited Results Last Vital Signs Temp 97.5 F L 05/01/25 15:04 Pulse 63 05/01/25 15:04 Resp 16 05/01/25 15:04 BP 91/50 L 05/01/25 15:04 Pulse Ox 98 05/01/25 15:04 Labs 05/01/25 06:42 05/01/25 06:42 Labs: Laboratory Results - last 24 hr 05/01/25 06:42 WBC 4.16 L RBC 2.56 L Hgb 7.2 L D Hct 22.8 L MCV 89 MCH 28.1 MCHC 31.6 L RDW 15.3 H Plt Count 83 L MPV 10.5 Immature Gran % 0.2 Neutrophils % 68.5 Lymphocytes % 20.2 Monocytes % 8.7 Eosinophils % 2.4 Basophils % 0.0 Nucleated RBC % 0.0 Absolute Neutrophils 2.85 Absolute Lymphocytes 0.84 L Absolute Monocytes 0.36 Absolute Eosinophils 0.10 Absolute Basophils 0.00 Sodium 142 Potassium 4.6 Chloride 112 H Carbon Dioxide 18.4 L Anion Gap 11.6 H BUN 103 H* Creatinine 3.8 H* Est GFR (CKD-EPI 2020) 10.92 Glucose 96 Calcium 9.5 Total Bilirubin 1.4 H AST 37 ALT 15 Alkaline Phosphatase 57 Total Protein 5.4 L Albumin 2.4 L Time Spent Time Spent with Patient Time Spent(min): 70
--- NOTE | 2025-05-01 17:11 | CMPROGNOTE_ITS ---
Date of service: 05/01/25 Time of Service: 17:11 Care Management Progress Note Progress Note Text Progress Note Text: Annamarie was lying in bed and sleeping, when CM arrived. Per report, Annamarie is still agreeable to SNF and referrals are pending. CM will continue to follow. Discharge Potential Discharge Needs: PCP F/U Appt Anticipated Barriers to Discharge: Bed availability Patient/Family Education Needs: Review discharge instructions, discuss Ask Me Three Transportation: [facility] Plan: Anticipate Annamarie will be discharged to SNF to [facility], prior to returning home, once medically ready with a bed offer. Annamarie will follow up with facility providers and continue per her plan of care. Annamarie will transport via [facility]. CM will continue to follow. Social Determinants of Health Screening Will the Patient Participate in the Screening?: Declined to provide
--- NOTE | 2025-05-01 18:07 | PGE_ITS ---
Date of Service Date of service: 05/01/25 Time of Service: 18:08 Subjective Subjective Interval history since last seen: pt seen and examined in her room this am Objective Last Vital Signs Temp 36.4 C L 05/01/25 15:04 Pulse 63 05/01/25 15:04 Resp 16 05/01/25 15:04 BP 91/50 L 05/01/25 15:04 Pulse Ox 98 05/01/25 15:04 Laboratory Results - last 24 hr 05/01/25 06:42 WBC 4.16 L RBC 2.56 L Hgb 7.2 L D Hct 22.8 L MCV 89 MCH 28.1 MCHC 31.6 L RDW 15.3 H Plt Count 83 L MPV 10.5 Immature Gran % 0.2 Neutrophils % 68.5 Lymphocytes % 20.2 Monocytes % 8.7 Eosinophils % 2.4 Basophils % 0.0 Nucleated RBC % 0.0 Absolute Neutrophils 2.85 Absolute Lymphocytes 0.84 L Absolute Monocytes 0.36 Absolute Eosinophils 0.10 Absolute Basophils 0.00 Sodium 142 Potassium 4.6 Chloride 112 H Carbon Dioxide 18.4 L Anion Gap 11.6 H BUN 103 H* Creatinine 3.8 H* Est GFR (CKD-EPI 2020) 10.92 Glucose 96 Calcium 9.5 Total Bilirubin 1.4 H AST 37 ALT 15 Alkaline Phosphatase 57 Total Protein 5.4 L Albumin 2.4 L Time Spent with Patient Time Spent with Patient: 25-34 minutes Time was spent: preparing to see the patient(eg.review tests), obtaining and/or reviewing separately otained hiistory, ordering medications,tests, procedures, referring, communicating with other health dialysis patient care technician, indepentently interpreting results, counseling the patient and care coordination
--- NOTE | 2025-05-01 18:09 | PGE_ITS ---
Date of Service Date of service: 05/01/25 Time of Service: 18:09 Assessment and Plan Assessment and plan (1) Palliative care encounter: Status: Acute Assessment and plan: PC will continue to follow as needed during this hospital stay, anticipate discharge to SNF prior to next avail on 05/03 - SNF referrals sent today, please make sure [facility] also sent 05/01/25 awaiting placement, has revoked hospice (2) Adult failure to thrive: Status: Acute Assessment and plan: as above (3) ACP (advance care planning): Status: Acute Assessment and plan: reviewed care preferences with both Annamarie and Iris, comfort directed care, limited interventions w/comfort/quality as goal reviewed goal of getting stronger, engaging in therapy, initial discharge to SNF w/goal of improving ambulatory status to walking, may consider relocation home at that time, this is highly variable however d/t no ADL caregiver avail in home reviewed local options for SNF, options for hospice in home w/family caregivers vs [facility] vs SNF; preference for SNF at this time; they do not have finances to cover private pay caregiving, nor do they qualify for Medicaid at this time reviewed [facility], preference likely Iris, refuses paperwork today, COLST completed last visit DNR/I, comfort directed care, no FT, only limited IVF/abx with comfort as goal recommend limit VS to only PRN or once daily or qshift change; okay w/continuing BS monitoring review of orders appropriate for comfort directed care - please consider low dose morphine or Ativan for pain or anxiety if needed spent 25m w/ACP - kain/Iris telephone call for 18m (4) Encounter for hospice care discussion: Status: Acute Assessment and plan: while she is eligible for hospice at this time, she does not have the appropriate home supports for admission at this time she would like to consider SNF for ongoing therapy to get as strong as possible, w/limited interventions as possible (5) Deficit in activities of daily living (ADL): Status: Acute (6) Stage 4 chronic kidney disease: Assessment and plan: pt has refused HD multiple times in the past. At this point her electrolytes are stable. Will monitor on heparin for dvtp 2/2 renal fx Subjective Subjective Interval history since last seen: Pt seen and examined in her room this am. Pt is trying to work with PT but complains of bilat foot pain as well as weakness Exam Narrative Exam Narrative: General: older adult female, lying in room w/eyes closed, wakes easily, ill appearing; no acute distress HEENT: [place], MMM, normocephalic, atraumatic; provided light oral care; swallows water appropriately Resp: even and unlabored, speech limited d/t fatigue to 1-2 sentences, no SOB, limited by energy; no cough or audible wheeze Psych: pleasant, cooperative, speech clear; refuses to answer, mostly around ACP conversations, answers I don't know often; insight/judgment limited Objective Last Vital Signs Temp 36.4 C L 05/01/25 15:04 Pulse 63 05/01/25 15:04 Resp 16 05/01/25 15:04 BP 91/50 L 05/01/25 15:04 Pulse Ox 98 05/01/25 15:04 Laboratory Results - last 24 hr 05/01/25 06:42 WBC 4.16 L RBC 2.56 L Hgb 7.2 L D Hct 22.8 L MCV 89 MCH 28.1 MCHC 31.6 L RDW 15.3 H Plt Count 83 L MPV 10.5 Immature Gran % 0.2 Neutrophils % 68.5 Lymphocytes % 20.2 Monocytes % 8.7 Eosinophils % 2.4 Basophils % 0.0 Nucleated RBC % 0.0 Absolute Neutrophils 2.85 Absolute Lymphocytes 0.84 L Absolute Monocytes 0.36 Absolute Eosinophils 0.10 Absolute Basophils 0.00 Sodium 142 Potassium 4.6 Chloride 112 H Carbon Dioxide 18.4 L Anion Gap 11.6 H BUN 103 H* Creatinine 3.8 H* Est GFR (CKD-EPI 2020) 10.92 Glucose 96 Calcium 9.5 Total Bilirubin 1.4 H AST 37 ALT 15 Alkaline Phosphatase 57 Total Protein 5.4 L Albumin 2.4 L Time Spent with Patient Time Spent with Patient: 25-34 minutes Time was spent: preparing to see the patient(eg.review tests), obtaining and/or reviewing separately otained hiistory, ordering medications,tests, procedures, referring, communicating with other health long term care social worker, indepentently interpreting results, counseling the patient and care coordination
[2025-05-01] MEDS: Gabapentin 100 MG CAP 200 MG PO (20:05)
[2025-05-01] MEDS: Miconazole 2% Topical Powder 85 GM BTL TP (20:38)
[2025-05-01] MEDS: Carvedilol 3.125 MG TAB PO (20:38)
[2025-05-02 07:04] LABS: ALT 19 U/L (14-59); AST 32 U/L (15-37); Albumin 2.3 g/dL (3.4-5.0); Alkaline Phosphatase 67 U/L (46-116); Anion Gap 11.4 mmol/L (3-11); Bilirubin, Total 0.9 mg/dL (0.2-1.0); CO2 18.6 mmol/L (21.0-32.0); CREATININE 3.5 mg/dL (0.55-1.02); Calcium 9.3 mg/dL (8.5-10.1); Chloride 111 mmol/L (98-107); Estimated GFR 12.05 (mL/min/1.73m2); Glucose 115 mg/dL (74-106); Potassium 4.9 mmol/L (3.5-5.1); Sodium 141 mmol/L (136-145); Total Protein 5.3 g/dL (6.4-8.2)
[2025-05-02 07:11] LABS: BUN 104 mg/dL (7-18)
[2025-05-02 07:22] VITALS: BP 91/41; PULSE 61; RESP 16; TEMP 36; O2SAT 97
--- NOTE | 2025-05-02 08:24 | CMPROGNOTE_ITS ---
Date of service: 05/02/25 Time of Service: 11:52 Care Management Progress Note Progress Note Text Progress Note Text: CM met with Annamarie this morning. Annamarie's wish is to be at home with her but has no soil fertility extension specialist; She still would like to attend short term rehab, prior to going home. Referrals are sent to the following facilities: [facility], [facility], [facility], and [facility]. Annamarie was agreeable to meeting with [facility], for assistance with terminal supervisor planning; With the patient's permission, a referral was sent. CM will follow up with the SNF's and continue to follow. Discharge Potential Discharge Needs: PCP F/U Appt Anticipated Barriers to Discharge: None Identified Patient/Family Education Needs: Review discharge instructions, discuss Ask Me Three Transportation: RCT Plan: Anticipate Annamarie will be discharged to SNF to [facility], prior to returning home, once medically ready with a bed offer. Annamarie will follow up with facility providers and continue per her plan of care. Annamarie will transport via RCT. CM will continue to follow. Social Determinants of Health Screening Will the Patient Participate in the Screening?: Declined to provide
[2025-05-02] MEDS: Miconazole 2% Topical Powder 85 GM BTL TP ×2 (09:22→20:50)
[2025-05-02] MEDS: Ciprofloxacin 250 MG TAB PO (11:03)
[2025-05-02 11:34] VITALS: BP 91/36; PULSE 63; RESP 17; TEMP 36.1; O2SAT 99
--- NOTE | 2025-05-02 11:44 | PTTR_ITS ---
PT Notes Visit Reasons: failure to thrive Physical Therapy Inpatient Treatment Note Date: 05/02/2025 Precautions: Fall risk. Standard precautions in place. Ileostomy in place. Pacemaker in situ. Subjective: Touching patient's feet makes her scream and highly anxious. Did not want to put any weight onto her feet for this session but did agree on doing bed level exercises. Objective: General Observation: Resting in bed. soles of B feet swollen and warm. 1st MTP joints red. Mental Status: Alert and oriented as to person and place. Pain: Considerable pain to palpation of B feet and distal B legs Bed Mobility/Transfers: Moderate verbal cueing provided for use of B hands as needed for support, movement sequence, AD management, and posture to reduce fall risk and minimize pain report Bending trunk forward with head of bed at 30 degrees stand by assist while pulling from B rails, able to lean forward 10 degrees beyond neutral Gait: Refused by patient Balance: Static Sitting: Good Dynamic Sitting: Fair Static Standing: Unable to test Dynamic Standing: Unable to test THERA EX: Provided guidance with correct execution of the following exercises to maintain joint flexibility and activity tolerance: Forward trunk flexion while pulling on B rails with HOB at 30 degrees x 10 Deep breathing exercises x 3 Small range SLR x 10--R LE up to about 30 degrees, L LE about 15 degrees Deep breathing exercises x 3 Alternate knee to chest x 10 Deep breathing exercises x 3 Ankle DF UNABLE DUE TO PAIN Partial/modified bridging/Gluteal sets x 10 Assessment: Refuses weight bearing through B LE due to pain report and anxiety over standing up due to pain. Agreeable onlyto bed exercises for this session. Plan of Care/Treatment Plan: 1-2x/day, 7 days/week x 1 week. Plan of care has been reviewed with the STAGE ELECTRICIAN HELPER providing the service under Physical Therapy direction. Initiate Physical Therapy intervention for strengthening, bed mobility, transfers, and balance training with use of assistive device. DISCHARGE RECOMMENDATIONS: SNF vs LTC due to inability of caregiver at home to provide needed care as he himself is not doing well medically TREATMENT CODE/TIME: 06741 x 30 minutes 2 units (11:44-12:14).
[2025-05-02 15:30] VITALS: BP 97/44; PULSE 61; RESP 15; TEMP 36.4; O2SAT 97
--- NOTE | 2025-05-02 16:24 | PGE_ITS ---
Date of Service Date of service: 05/02/25 Time of Service: 16:25 Subjective Subjective Interval history since last seen: No new complaints today. Notes from PT reviewed Exam Narrative Exam Narrative: HEENT-NCAT MMM EOMI PERRLA NECK-NO LAD NO JVD CV-4/6 RANJITH RRR PULM-CTAB NO AMU EXT-NO CCEB Objective Last Vital Signs Temp 36.4 C L 05/02/25 15:30 Pulse 61 05/02/25 15:30 Resp 15 05/02/25 15:30 BP 97/44 L 05/02/25 15:30 Pulse Ox 97 05/02/25 15:30 Laboratory Results - last 24 hr 05/02/25 06:20 Sodium 141 Potassium 4.9 Chloride 111 H Carbon Dioxide 18.6 L Anion Gap 11.4 H BUN 104 H* Creatinine 3.5 H Est GFR (CKD-EPI 2020) 12.05 Glucose 115 H Calcium 9.3 Total Bilirubin 0.9 AST 32 ALT 19 Alkaline Phosphatase 67 Total Protein 5.3 L Albumin 2.3 L Time Spent with Patient Time Spent with Patient: 25-34 minutes Time was spent: preparing to see the patient(eg.review tests), obtaining and/or reviewing separately otained hiistory, ordering medications,tests, procedures, referring, communicating with other health career development coordinator, indepentently interpreting results, counseling the patient and care coordination
[2025-05-02 20:41] VITALS: BP 102/37; PULSE 60; RESP 18; TEMP 36.7; O2SAT 99
[2025-05-02] MEDS: Carvedilol 3.125 MG TAB PO (20:50)
[2025-05-02] MEDS: Gabapentin 100 MG CAP 200 MG PO (20:50)
[2025-05-03] MEDS: Acetaminophen 325 MG TAB PO (06:29)
[2025-05-03 06:52] LABS: Abs Immature Grans 0.02 10^3/uL (0.0-0.06); Absolute Basophil Count 0.01 10^3/uL (0.0-0.2); Absolute Eosinophil Count 0.07 10^3/uL (0.0-0.7); Absolute Lymphocyte Count 0.49 10^3/uL (1.2-3.4); Absolute Monocyte Count 0.28 10^3/uL (0.1-0.8); Absolute Neutrophil Count 1.79 10^3/uL (1.2-6.7); Basophils % 0.4 %; Eosinophils % 2.6 %; HGB 7.5 g/dL (11.2-15.7); Immature Grans % 0.8 %; Lymphocytes % 18.4 %; MCH 28.5 pg (27.0-33.0); MCHC 32.6 % (32.0-36.0); MCV 88 fL (80-95); MPV 9.6 fL (8.0-11.0); Monocytes % 10.5 %; Neutrophils % 67.3 %; RBC 2.63 10^6/uL (3.93-5.22); RDW 14.6 % (11.7-14.6); RDW-SD 47.2 fL; WBC 2.66 10^3/uL (4.4-10.8)
[2025-05-03 07:12] LABS: ALT 31 U/L (14-59); AST 40 U/L (15-37); Albumin 2.3 g/dL (3.4-5.0); Alkaline Phosphatase 105 U/L (46-116); Anion Gap 10.1 mmol/L (3-11); CO2 17.9 mmol/L (21.0-32.0); CREATININE 3.2 mg/dL (0.55-1.02); Calcium 9.4 mg/dL (8.5-10.1); Chloride 112 mmol/L (98-107); Estimated GFR 13.42 (mL/min/1.73m2); Glucose 103 mg/dL (74-106); Sodium 140 mmol/L (136-145); Total Protein 5.2 g/dL (6.4-8.2)
[2025-05-03 07:16] LABS: Diff Comment Diff Reviewed; Hypochromasia 2+; Platelet Count 90 10^3/uL (130-400)
[2025-05-03 07:21] LABS: BUN 99 mg/dL (7-18)
[2025-05-03 07:24] VITALS: BP 96/47; PULSE 60; RESP 16; TEMP 36.3; O2SAT 98
[2025-05-03] MEDS: Ciprofloxacin 250 MG TAB PO (09:14)
--- NOTE | 2025-05-03 09:58 | PDOC.CMPRO ---
Date of service: 05/03/25 Time of Service: 09:58 Care Management Progress Note Discharge Potential Discharge Needs: Other (SNF) Anticipated Barriers to Discharge: Bed availability Patient/Family Education Needs: Review discharge instructions, discuss Ask Me Three Transportation: RCT Plan: Anticipate Annamarie will be discharged to SNF for short term rehab prior to returning home. She has received and accepted a bed offer from [facility] and is waiting for prior authorization from her insurance company. Annamarie will follow up with facility providers and plan of care and will transport via RCT. CM will follow and continue to support discharge planning efforts. Social Determinants of Health Screening Will the Patient Participate in the Screening?: Declined to provide
--- NOTE | 2025-05-03 10:15 | PTTR_ITS ---
PT Notes Visit Reasons: failure to thrive Physical Therapy Inpatient Treatment Note Date: 05/03/2025 Precautions: Fall risk. Standard precautions in place. Ileostomy in place. Pacemaker in situ. Subjective: Has no had breakfast, no appetite but when asked about what she likes to try to eat when PT came in, patient verbalized chicken noodle soup. She was agreeable to be repositioned in bed so she is upright enough fore her meal. Objective: General Observation: Resting in bed. 1st MTP joints red. Mental Status: Alert and oriented as to person and place. Pain: Considerable pain to palpation of B feet and distal B legs Bed Mobility/Transfers: Moderate verbal cueing provided for use of B hands as needed for support, movement sequence, AD management, and posture to reduce fall risk and minimize pain report Scoot up in bed moderate assist of PT and SEISMIC SURVEY ASSISTANT Mary Lou Bed positioning for comfort: Elevated knee part of bed and placed pillows under B knees before HOB was elevated to 60 degrees Gait: Continues to decline weight bearing through B LE Balance: Static Sitting: Good Dynamic Sitting: Fair Static Standing: Unable to test Dynamic Standing: Unable to test THERA EX: Deferred for this session as patient has not had breakfast and had minimal supper eaten. Will return later this morning to attempt bed level/edge of bed exercises Assessment: Refuses weight bearing through B LE due to pain report and anxiety over standing up due to pain. Agreeable only to bed exercises for this session. Plan of Care/Treatment Plan: 1-2x/day, 7 days/week x 1 week. Recommending slow progression of bed mobility and edge of bed activities at this time at subacute rehab. Attempt standing activities once pain level is more controlled. DISCHARGE RECOMMENDATIONS: SNF vs LTC due to inability of caregiver at home to provide needed care as he himself is not doing well medically TREATMENT CODE/TIME: 42357 x 10 minutes 1 unit (10:15-10:25).
--- NOTE | 2025-05-03 12:45 | DSE_ITS ---
Date of service: 05/03/25 Time of Service: 12:45 DS: Diagnosis Discharge Diagnosis (1) Palliative care encounter: Status: Acute (2) Adult failure to thrive: Status: Acute (3) ACP (advance care planning): Status: Acute (4) Encounter for hospice care discussion: Status: Acute (5) Deficit in activities of daily living (ADL): Status: Acute (6) Stage 4 chronic kidney disease: Discharge Plan Disposition Patient Disposition: Halfway Facility(SNF) Condition: Stable Discharge Details Reason For Visit: failure to thrive Admit Date/Time: 04/29/25 17:20 Admit Provider: Arsh Saleh Attending Provider: Arsh Saleh Primary Care Provider: Dede Miller Hospital Course Hospital Course: This is an 89-year-old female who was recently discharged from the hospital yesterday and was to go on hospice secondary to chronic kidney disease and not wanting to hemodialysis. While she was at home the home health care workers came into see the family and thought that her was possibly having a stroke and recommended that he go to the hospital. Since he was her primary caregiver they thought it would be a good idea for her to come to the hospital as well. Of note, the patient's does not want to stay in the hospital and is leaving today. Upon my discussion with the patient she states that she does want to stay in the hospital so we will admit to obs. Labs are pending but I cannot see any of these being important not to change our disposition at this point. While the patient was in the hospital she was seen in consultation physical therapy who recommended intermediate facility as patient did not seem safe to go home. On 03 May she was excepted including intermediate facility and was subsequently discharged. Patient has refused hemodialysis multiple times in the past and her electrolytes are currently fairly benign. I have held the patient's Cardizem, metoprolol, and Coreg. Not sure why the pat ient is on metoprolol and Coreg but the patient is currently hypotensive. Will add back to her antihypertensives as needed in the outpatient setting. Patient also is taking some medications other relatively contraindicated by beers criteria but will defer to PCP Home Meds and New Rx's Prescriptions: Continued acetaminophen 650 mg suppository 650 mg NJ Q6H PRN (Reason: fever, mild pain) Qty: 6 0RF Rx Instructions: Hospice Patient hyoscyamine sulfate 0.125 mg tablet,disintegrating 0.125 - 0.25 mg PO Q4H PRN (Reason: secretions) Qty: 24 0RF Rx Instructions: Hospice Patient lorazepam 1 mg tablet 1 mg PO Q4H PRN (Reason: anxiety, ISNGH or nausea) Qty: 6 5RF Rx Instructions: Hospice Patient haloperidol lactate 2 mg/mL concentrate 1 mg PO Q6H PRN (Reason: agitation) Qty: 15 0RF Rx Instructions: Hospice Patient morphine concentrate 100 mg/5 mL (20 mg/mL) solution 5 - 20 mg PO Q1-4H MDD 5 mL PRN (Reason: moderate to severe pain or shortness of breath) Qty: 30 0RF Rx Instructions: Hospice Patient prochlorperazine maleate 10 mg tablet 10 mg PO Q6H PRN (Reason: nausea and vomiting) Qty: 6 0RF Rx Instructions: Hospice Patient bisacodyl [Dulcolax (bisacodyl)] 10 mg suppository 10 mg NJ daily PRN (Reason: constipation) Qty: 2 0RF Rx Instructions: Hospice Patient Insert 1 supp NJ Daily PRN constipation (no BM in 3 days) miconazole nitrate [Remedy Phytoplex Antifungal] 2 % Powder 1 applic topical BID Qty: 100 0RF gabapentin 100 mg Capsule 200 mg PO BID Qty: 60 2RF carboxymethylcellulose sodium [Refresh Plus] 0.5 % Dropperette 2 drp OU PRN PRNQty: 1 0RF Discontinued carvedilol 3.125 mg Tablet 3.125 mg PO BID Qty: 60 2RF diltiazem HCl 120 mg Capsule,Extended Release 24hr 120 mg PO DAILY Qty: 90 1RF metoprolol succinate 50 mg tablet extended release 24 hr 50 mg PO DAILY Discharge Instructions Referrals: Dede Miller [Primary Care Provider] - (follow up in 5-7 days) Activity:: Activity as Tolerated Equipment/Supplies:: No Equipment Needed Diet:: As Tolerated Discharge Orders Discharge Orders: Discharge Order (Routine); Ordered 05/03/25 Ordered By: Arsh Saleh DS: Summary Time Spent with Patient providing and/or coordinating discharge services: Less than 30 minutes Status at Discharge Functional status at discharge: uses cane/walker Overall status at discharge: patient is progressing back to baseline Mental Status: mental status grossly normal Speech and Movement: speech and movement normal Mood: congruent mood Affect: normal affect Quality:SDOH Health Related Social Needs: Health related social needs housing instability, house d, with risk of homelessness (Z59.811), feeling lonely/isolated (Z60.8) Health related social needs details n/a, Exam Narrative Exam Narrative: HEENT-NCAT MMM EOMI PERRLA NECK-NO LAD NO JVD CV-4/6 RANJITH RRR PULM-CTAB NO AMU EXT-NO CCEB Psych Mental Status: mental status grossly normal Speech and Movement: speech and movement normal Mood: congruent mood Affect: normal affect DS: Data Vitals/I&O Vitals and I&O: Vital Signs Temperature 36.3 C L 05/03/25 07:24 Temperature Source Temporal Artery Scan 05/03/25 07:24 Pulse 60 05/03/25 07:24 Pulse Rhythm Regular 04/29/25 18:16 Respiratory Rate 16 05/03/25 07:24 Respiratory Effort Normal 04/29/25 18:16 Respiratory Depth Normal 04/29/25 18:16 Respiratory Pattern Normal 04/29/25 18:16 Blood Pressure 96/47 L 05/03/25 07:24 Blood Pressure Mean 63 05/03/25 07:24 Blood Pressure Position Sitting 04/29/25 16:33 Pulse Oximetry 98 05/03/25 07:24 Oxygen Delivery Method Room Air 05/03/25 07:24 Oxygen Flow Rate 0 05/03/25 07:24 Pain Level 3 05/03/25 07:24 Comment RN notified of bp 05/03/25 07:24 Intake & Output 05/02/25 05/03/25 05/03/25 23:59 11:59 23:59 Output Total 400 / 650 500 / 500 Balance -400 / -650 -500 / -500 Output: Urine 200 / 350 200 / 200 Stool 200 / 300 300 / 300 Other: Urine Color Light Sonal Pale Yellow Data Completed and Pending Labs on day of discharge: Labs from last 24 hours 05/03/25 06:27 WBC 2.66 L RBC 2.63 L Hgb 7.5 L Hct 23.0 L MCV 88 MCH 28.5 MCHC 32.6 RDW 14.6 Plt Count 90 L MPV 9.6 Immature Gran % 0.8 Neutrophils % 67.3 Lymphocytes % 18.4 Monocytes % 10.5 Eosinophils % 2.6 Basophils % 0.4 Nucleated RBC % 0.0 Absolute Neutrophils 1.79 Absolute Lymphocytes 0.49 L Absolute Monocytes 0.28 Absolute Eosinophils 0.07 Absolute Basophils 0.01 RBC Morphology See Below Hypochromasia 2+ Sodium 140 Potassium 5.0 Chloride 112 H Carbon Dioxide 17.9 L Anion Gap 10.1 BUN 99 H* Creatinine 3.2 H Est GFR (CKD-EPI 2020) 13.42 Glucose 103 Calcium 9.4 Total Bilirubin 1.0 AST 40 H ALT 31 Alkaline Phosphatase 105 Total Protein 5.2 L Albumin 2.3 L PFSH All Active Problems (Updated 05/01/25 @ 16:28 by Elyse Silverman NP) Deficit in activities of daily living (ADL) (Acute) Hypomagnesemia (Acute) Adult failure to thrive (Acute) Ileum ulcer (Acute) Palliative care encounter (Acute) ACP (advance care planning) (Acute) Encounter for hospice care discussion (Acute) Unintentional weight loss (Acute) GI bleeding (Chronic) PSVT (paroxysmal supraventricular tachycardia) (Acute) At high risk for skin breakdown (Acute) Abn react-external stoma (Acute) Elevated serum creatinine (Acute) Chronic pain in left foot (Acute) Medical History Pacemaker Hypercholesterolemia Stage 4 chronic kidney disease H/O malignant neoplasm of colon History of breast cancer CONTRERAS (nonalcoholic steatohepatitis) Cirrhosis Ischemic neuropathy of foot PAD (peripheral artery disease) Hypertension Paroxysmal atrial fibrillation Surgical History Hemicolectomy (06/30/13) Right, due to 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 Park @ [facility], 2015-no recurrence Social History Smoking/Tobacco Use Status: Never Smoking risk assessment performed?: Yes Alcohol Intake: never Drug use: Never Substance use type: does not use Housing: house Do you feel safe at home: Yes Do you feel safe in your relationship?: Yes Time Spent with Patient Time Spent with Patient: <45 minutes Time was spent: preparing to see the patient(eg.review tests), obtaining and/or reviewing separately [facility] hiistory, ordering medications,tests, procedures, referring, communicating with other health childcare provider, indepentently interpreting results, counseling the patient and care coordination
--- NOTE | 2025-05-03 14:35 | W.PALPGNOTE ---
Date of service: 05/03/25 Time of Service: 12:00 Assessment and Plan Assessment and plan (1) Deficit in activities of daily living (ADL): Status: Acute Assessment and plan: requiring 24/7 caregiving at this time, reviewed w/pt and unsafe for discharge home at this time - plan for SNF for ongoing caregiving and therapy requirements (2) Adult failure to thrive: Status: Acute (3) Palliative care encounter: Status: Acute Assessment and plan: pending discharge from [place] may re-engage w/palliative in future - previously recommended hospice, she is still eligible today (4) Unintentional weight loss: Status: Acute (5) Stage 4 chronic kidney disease: Assessment and plan: w/reduced urine output (6) Cirrhosis: (7) ACP (advance care planning): Status: Acute Assessment and plan: reviewed plan for discharge, goals of engaging w/therapy for improved function/walking if able, need for 24/7 care reviewed [facility] program, Annamarie would like daughter to complete paperwork at this time, [facility] [employer] Counselor to contact her this afternoon reviewed suspected life expectency is less than 6 mos, though in reality, suspect closer to weeks at this time, pending acute recovery w/appropriate multimedia services coordinator care Subjective Subjective Interval history since last seen: Annamarie remains hospitalized for FTT, pending discharge to SNF, bed offer accepted at [facility], pending prior auth for insurance payment; present at bedside Mayur De Luna and Mayur have previously agreed to discharge plans [facility] [employer] counselor met w/her earlier and Annamarie was unable to understand the CFC program or application, Iris is already on approved list for contact and could sign aplication per staff: appetite reduced to <25%, doing well w/protein shakes, drinking limited water; increased confusion; weakness requiring 2-3 person transfer assist; limited participation w/PT d/t feeling like she can't get out of bed, but did participate in bed exercises this morning; increased sleeping; reduced urine output to 150-200cc in 12 hours Annamarie is unsure of what I do, I don't know, wishes she could go home, this is her primary goal; she is confused about CFC program I don't have the money Mayur would love to take her home and provide caregiving, but agrees he cannot provide 24/7 care, but can do the best he can Tomorrow is their 72st wedding anniversary. He plans on bringing her thapa Exam Narrative Exam Narrative: General: older adult female, lying in room at bedside, ill/frail appearing; no acute distress HEENT: [place], MMM, normocephalic, atraumatic; Resp: even and unlabored, speech limited d/t fatigue to 1-2 sentences, no SOB, limited by energy; no cough or audible wheeze Psych: cooperative, speech clear; confused; refuses to answer, mostly around ACP conversations, answers I don't know often; insight/judgment limited Objective Last Vital Signs Temp 97.3 F L 05/03/25 07:24 Pulse 60 05/03/25 07:24 Resp 16 05/03/25 07:24 BP 96/47 L 05/03/25 07:24 Pulse Ox 98 05/03/25 07:24 Laboratory Results - last 24 hr 05/03/25 06:27 WBC 2.66 L RBC 2.63 L Hgb 7.5 L Hct 23.0 L MCV 88 MCH 28.5 MCHC 32.6 RDW 14.6 Plt Count 90 L MPV 9.6 Immature Gran % 0.8 Neutrophils % 67.3 Lymphocytes % 18.4 Monocytes % 10.5 Eosinophils % 2.6 Basophils % 0.4 Nucleated RBC % 0.0 Absolute Neutrophils 1.79 Absolute Lymphocytes 0.49 L Absolute Monocytes 0.28 Absolute Eosinophils 0.07 Absolute Basophils 0.01 RBC Morphology See Below Hypochromasia 2+ Sodium 140 Potassium 5.0 Chloride 112 H Carbon Dioxide 17.9 L Anion Gap 10.1 BUN 99 H* Creatinine 3.2 H Est GFR (CKD-EPI 2020) 13.42 Glucose 103 Calcium 9.4 Total Bilirubin 1.0 AST 40 H ALT 31 Alkaline Phosphatase 105 Total Protein 5.2 L Albumin 2.3 L
--- NOTE | 2025-05-03 15:43 | CMDISCH_ITS ---
Date of service: 05/03/25 Time of Service: 15:44 LACE Index Scoring Tool Questions: Length of Stay (in days): 4 - 6 Was the patient admitted via the E.D.?: Yes Comorbidities: PVD, Any Tumor and Liver or Renal Disease E.D. Visits: 2 Answers: Total Score: 14 Risk of Readmission: High Risk Care Management Discharge Plan Reason for Hospitalization: failure to thrive Discharge Plan: Annamarie will be transferred to [facility] for short term rehab prior to returning home. It may be necessary for her to transition to fdc care. Iris from the [facility] has been working with Annamarie and has completed a [place] Medicaid application with her. Annamarie will follow up with the facility providers and plan of care and transport via EMS with [facility]. Patient/Family Education Needs: Review of discharge instructions, limitations, follow up plan and discuss Ask Me Three Services Needed at Discharge: Detention Facility SDOH Health Related Social Needs: Health related social needs housing instability, house d, with risk of homelessness (Z59.811), feeling lonely/isolated (Z60.8) Health related social needs details n/a,
== END 2025-05-03 13:36 | disposition skilled nursing facility (03) ==
LOC: ER 17:47 → MS 18:04
PROVIDERS: Admitting Provider Hospitalist; Emergency Provider Nurse Practitioner Family; PCP Legal Medicine; Responsible Provider Hospitalist; Visit Provider Hospitalist
DX: N17.9 Acute kidney failure, unspecified (principal); R57.1 Hypovolemic shock; K92.1 Melena; I48.0 Paroxysmal atrial fibrillation; N39.0 Urinary tract infection, site not specified; K94.11 Enterostomy hemorrhage; K74.60 Unspecified cirrhosis of liver; I12.9 Hypertensive chronic kidney disease with stage 1 through stage 4 chronic kidney disease, or unspecified chronic kidney disease; E87.5 Hyperkalemia; R62.7 Adult failure to thrive; N18.4 Chronic kidney disease, stage 4 (severe); E83.42 Hypomagnesemia; R26.2 Difficulty in walking, not elsewhere classified; G57.82 Other specified mononeuropathies of left lower limb; I73.9 Peripheral vascular disease, unspecified; Z85.3 Personal history of malignant neoplasm of breast; E78.00 Pure hypercholesterolemia, unspecified; I35.0 Nonrheumatic aortic (valve) stenosis; K63.3 Ulcer of intestine; I47.19 Other supraventricular tachycardia; K75.81 Nonalcoholic steatohepatitis (NASH); Z95.0 Presence of cardiac pacemaker; Z68.29 Body mass index [BMI] 29.0-29.9, adult; Z66 Do not resuscitate; Z85.038 Personal history of other malignant neoplasm of large intestine; Y83.8 Other surgical procedures as the cause of abnormal reaction of the patient, or of later complication, without mention of misadventure at the time of the procedure; Z90.49 Acquired absence of other specified parts of digestive tract; Z79.899 Other long term (current) drug therapy; Z73.6 Limitation of activities due to disability
CPT/HCPCS: 00123; 36415; 80053; 87077; 93005; 97110; 97163; 97530; 99285; 81003; 81015; 83735; 84443; 85025; 87086; 87186; 93010; 99222; 99231; 99238; G0378; J1644

== ENCOUNTER 2025-06-11 23:38 | Observation (INO) | payer MEDICARE, SELFPAY ==
[2025-06-11 23:43] VITALS: BP 104/36; PULSE 74; RESP 18; TEMP 36.6; O2SAT 98
--- NOTE | 2025-06-11 23:45 | RT.EKG_ITS ---
APPROVED REPORT Exam: Resting ECG Reason for Exam: tachycardia Patient Location: E HR:155 bpm ECG Measurements Heart Rate 155 AXIS KS 60 P 0 QRSd 126 QRS -61 QT 329 T 81 QTc 528 Conclusion Wide-QRS tachycardia...V-rate>(220-age), QRSd>120 RBBB and LAFB...QRSd >120mS, axis(-40,240)
[2025-06-11 23:48] VITALS: PULSE 71; O2SAT 98
[2025-06-11 23:49] VITALS: BP 97/44; PULSE 70
[2025-06-11 23:51] VITALS: PULSE 119; RESP 9
--- NOTE | 2025-06-11 23:51 | ED.GENADUL_ITS ---
Discharge Plan Disposition Patient Disposition: Admit to [facility] Condition: Serious Discharge Details Clinical Impression: Acute hypotension, Wide-complex tachycardia, CKD (chronic kidney disease), Acute GI bleeding, Goals of care, counseling/discussion Primary Care Provider: Dede Miller ED Provider: Adeline Steele Home Meds and New Rx's Prescriptions: No Action gabapentin 600 mg tablet Patient Comments: TAKE 1 TABLET BY MOUTH THREE TIMES DAILY HPI General Mode of arrival: ambulatory . Date/Time Provider Initiated Documentation: 06/11/25 23:40 . Limitations to Documentation: no limitations . Information obtained by: patient, family and old records reviewed . 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 Had an episode yesterday where it was bleeding but this resolved on it's own. Started up again tonight and filled her bag with blood; emptied prior to coming to the ED. Has felt somewhat lightheaded tonight. No chest pain or shortness of breath. No syncope. Otherwise in her usual state of health with no fevers, chills, rash, nausea, vomiting, abdominal pain, or other concerns. Related Data Home Medications ?Medication ?Instructions ?Recorded ?Confirmed gabapentin 600 mg tablet mg 06/11/25 Allergies Allergy/AdvReac Type Severity Reaction Status Date / Time No Known Drug Allergies Allergy none Verified 06/11/25 23:48 General Stated Complaint: Abd Prob LETI: 3 Review of Systems Narrative: see HPI Exam Narrative Exam Narrative: General: Alert, in no acute distress. Head: Normocephalic, atraumatic. Pale conjuctiva. Neck: Trachea midline, ?Neck supple. ENT: ?MMM.? Cardiac: ?RRR, no murmurs appreciated Resp: No respiratory distress. CTAB. Abd: ?Soft, non-distended, nontender. Ostomy present, ~500cc dark purple fluid in bag : ?No suprapubic tenderness. Extremities: ?No deformities.? No peripheral edema. Neurologic: GCS 15. ? Moves all extremities freely against gravity Course Vital Signs Vital signs: Vital Signs Temperature 36.6 C 06/11/25 23:43 Pulse 74 06/11/25 23:43 Respiratory Rate 18 06/11/25 23:43 Blood Pressure 104/36 L 06/11/25 23:43 Pulse Oximetry 98 06/11/25 23:43 Temperature 36.6 C 06/11/25 23:43 Temperature Source Oral 06/11/25 23:43 Pulse 74 06/11/25 23:43 Respiratory Rate 18 06/11/25 23:43 Blood Pressure 104/36 L 06/11/25 23:43 Pulse Oximetry 98 06/11/25 23:43 Pain Level 0 06/11/25 23:43 Procedure Central Line Placement Date of Procedure: 06/12/25 Time of Procedure: 01:00 Provider that performed the procedure: Adeline Steele Indication: Hypotension Patient Consented: Verbally Standard Time Out Performed: Yes Sterility: Sterile Local Anesthetic: Lidocaine 2% Amount of anesthetic used(mL): 5 Laterality: Left Insertion Site: Internal Jugular (IJ) Insertion Procedure: Vessel accessed with needle and Guidewire met resistance Ultrasound: Other (used, image not saved) Number of Attempts(see previous attempts in note section): 1 Procedure Tolerated: Complications Encountered (unable to advance guidewire) Procedure Outcome: Unsuccessful Medical Decision Making Initial presentation and resuscitation: 89yo F with hx HTN, afib, pacer in place, CKD, cirrhosis, 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 Episode of bleeding yesterday which resolved; started up again tonight and filled her bag with blood; emptied prior to coming to the ED and blood appeared to be coming directly from stoma. Normal heart rate and acceptable blood pressure on arrival with ~500cc dark purple fluid in ostomy bag, pale conjuctiva, no abdominal tenderness. Shortly thereafter, wide complex tachycardia to 160's with BP 70-80's/50's. Mentating well with no chest pain; does feel somewhat lightheaded however 'not that much worse than before'. Difficult IV access, multiple PIV attempts in left arm without success. Pt continues to go in and out of RVR. Given hemodynamic instability, discussed blood transfusion and placing central line with patient to which she reluctantly agreed. Erythema to bilateral groin so left IJ line placement attempted without success; pt refused further attempts. Avoiding PIV in right arm d/t lymphedema however with with pt refusing central line risk/benefit of PIV there favors placement and she is agreeable to this. IV successfully placed. Given 1 unit emergent release blood and 5mg IV diltazem; HR and BP subsequently improved. Continues to have intermittent episodes of RVR but not sustained. ED course: -Initial EKG wide complex tachycardia, rate 150's; repeat atrial paced in 60's with RBBB. Pacer interrogated, shows frequent episodes of tachycardai and afib/RVR. -Labs reviewed as below, CBC with Hg 9.2 (reassuring though may not yet have had time to equilibrate with active bleed; will complete unit that is running) and mild thrombocytopenia at 113, coags normal, CMP with no actionable abnormalities, Mg slightly low (replacement ordered). -Ostomy bag changed. Scant watery brown stool leaking from stoma. No active bleeding from stoma currently. -CT abd/pelvis independently reviewed; no obstruction or free fluid on my view, radiology read below. [facility] records reviewed; patient with multiple prior episodes of stomal bleeding, last admitted in March of this year, not thought to be a candidate for revision at that time. Discussed goals of care with patient. She had previously considered hospice and referrals were sent by palliative care, but this was not followed through on during rehab stay after most recent hospital admission (dced from rehab 'a few days ago'). She affirms DNR/DNI; does want some medical i nterventions including blood if necessary but also states maybe I should have just stayed at home to . Adamantly opposed to transfer to another hospital; hesitant to consider admission here and states she will think about it, discuss with family. Daughter and son-in-law subsequently at bedside and I reviewed with them her clinical course thus far. On reassessment patient is hypotensive while sleeping, 80's/30's; improves to 105/46 when awakened. I spoke again with Ms. Bridges. She would like limited medical interventions- okay for labs, IV fluids, blood products. Does not want ICU level care, central line, pressors, intubation, or CPR. She would like to explore options for hospice. Scant thin brown stool in ostomy bag, no bleeding at this time. Repeat CBC with Hg 9.9, platelets 86 (platelets ordered, will transfuse when available). I am unclear as the source of blood in her ostomy bag today; pt stated it looked like it was coming from the stoma itself when she emptied the bag, however stoma is not actively bleeding here (though it looks macerated and not particularly healthy) and so GI bleed is possible. Given cirrohsis, must consider variceal bleeding however no nausea or hematemesis. Will give IV protonix for possible upper GI bleeding. With patient declining transfer and limited medical interventions, warrants staying at [facility] for monitoring for re-bleeding, trending vital signs and CBC. She is no longer actively bleeding. Surgeon email operations manager aware of patient, requests consult be placed and will see in the am to assess stoma. Discussed with [facility] hospitalist Dr. Kaur; pt accepted to medicine service. Awaiting admission orders and transfer to the floor. Imaging Data Radiologic Study: Imaging: CT Scan Radiologist's impression: IMPRESSION: 1. Prior right hemicolectomy with a long colorectal pouch and a 5.7 cm x 12.0 cm x 17.3 cm small bowel containing parastomal hernia. No upstream small bowel dilatation to suggest obstruction. 2. Cirrhotic liver morphology. 3. 4.2 cm x 3.0 cm mass redemonstrated in the right adnexal region apparently containing fatty components. This finding is not well characterized by today's exam; however, a right ovarian dermoid could probably have this appearance. Comparison with remote prior imaging is recommended. Lab Data Lab results reviewed: Yes I reviewed the patient's lab results. Labs: Laboratory Tests Range/Units 06/11/25 06/11/25 06/12/25 23:47 23:58 00:14 WBC Cancelled RBC Cancelled Hgb Cancelled Hct Cancelled MCV Cancelled MCH Cancelled MCHC Cancelled RDW Cancelled Plt Count Cancelled MPV Cancelled Immature Gran % Cancelled Neutrophils % Cancelled Band Neutrophils % Cancelled Lymphocytes % Cancelled Atypical Lymphs % Cancelled Monocytes % Cancelled Eosinophils % Cancelled Basophils % Cancelled Metamyelocytes % Cancelled Myelocytes % Cancelled Promyelocytes % Cancelled Other Cells % Cancelled Nucleated RBC % Cancelled Absolute Neutrophils Cancelled Absolute Lymphocytes Cancelled Absolute Monocytes Cancelled Absolute Eosinophils Cancelled Absolute Basophils Cancelled RBC Morphology Cancelled Polychromasia Cancelled Hypochromasia Cancelled Poikilocytosis Cancelled Basophilic Stippling Cancelled Anisocytosis Cancelled Microcytosis Cancelled Macrocytosis Cancelled Spherocytes Cancelled Tear Drop Cells Cancelled Ovalocytes Cancelled Stomatocytes Cancelled Dial-[place] Bodies Cancelled [place] Cells/Echinocytes Cancelled Acanthocytes (Spur) Cancelled Schistocytes Cancelled PT Cancelled INR Cancelled APTT Cancelled Sodium Cancelled Potassium Cancelled Chloride Cancelled Carbon Dioxide Cancelled Anion Gap Cancelled BUN Cancelled Creatinine Cancelled Est GFR (CKD-EPI 2020) Cancelled Glucose Cancelled Calcium Cancelled Magnesium Cancelled Total Bilirubin Cancelled AST Cancelled ALT Cancelled Alkaline Phosphatase Cancelled Total Protein Cancelled Albumin Cancelled ABO/Rh Cancelled Cancelled Antibody Screen Cancelled Cancelled Crossmatch Range/Units 06/12/25 01:16 WBC 6.23 RBC 3.22 L Hgb 9.2 L Hct 27.2 L MCV 85 MCH 28.6 MCHC 33.8 RDW 14.1 Plt Count 113 L MPV 9.4 Immature Gran % 0.3 Neutrophils % 66.0 Band Neutrophils % Lymphocytes % 23.4 Atypical Lymphs % Monocytes % 8.7 Eosinophils % 1.3 Basophils % 0.3 Metamyelocytes % Myelocytes % Promyelocytes % Other Cells % Nucleated RBC % 0.0 Absolute Neutrophils 4.11 Absolute Lymphocytes 1.46 Absolute Monocytes 0.54 Absolute Eosinophils 0.08 Absolute Basophils 0.02 RBC Morphology Polychromasia Hypochromasia Poikilocytosis Basophilic Stippling Anisocytosis Microcytosis Macrocytosis Spherocytes Tear Drop Cells Ovalocytes Stomatocytes Dial-[place] Bodies Columbia Cells/Echinocytes Acanthocytes (Spur) Schistocytes PT 10.4 INR 1.0 APTT 23.6 Sodium 133 L Potassium 3.9 Chloride 103 Carbon Dioxide 15.3 L Anion Gap 14.7 H BUN 64 H Creatinine 3.8 H* Est GFR (CKD-EPI 2020) 10.92 Glucose 104 Calcium 9.5 Magnesium 1.6 L Total Bilirubin 1.0 AST 23 ALT 20 Alkaline Phosphatase 61 Total Protein 6.5 Albumin 3.4 ABO/Rh A Positive Antibody Screen POSITIVE Crossmatch See Detail Quality:SDOH Health Related Social Needs: Health related social needs risk of homeless lonely/is olated Health related social needs details n/a Critical Care Time Critical Care Time Critical Care Time: Yes Total Critical Care Time: 48 Attestation: Due to a high probability of clinically significant, life threatening deterioration, the patient required my highest level of preparedness to intervene emergently and I personally spent this critical care time directly and personally managing the patient. This critical care time included obtaining a history; examining the patient; pulse oximetry; ordering and review of studies; arranging urgent treatment with development of a management plan; evaluation of patient's response to treatment; frequent reassessment; and, discussions with other providers. This critical care time was performed to assess and manage the high probability of imminent, life-threatening deterioration that could result in multi-organ failure. It was exclusive of separately billable procedures and treating other patients? PFSH All Active Problems (Updated 06/12/25 @ 04:51 by Adeline Steele MD) Goals of care, counseling/discussion (Acute) Acute GI bleeding (Acute) CKD (chronic kidney disease) (Chronic) Wide-complex tachycardia (Acute) Acute hypotension (Acute) Deficit in activities of daily living (ADL) (Acute) Adult failure to thrive (Acute) Ileum ulcer (Acute) Unintentional weight loss (Acute) GI bleeding (Chronic) PSVT (paroxysmal supraventricular tachycardia) (Acute) At high risk for skin breakdown (Acute) Abn react-external stoma (Acute) Elevated serum creatinine (Acute) Chronic pain in left foot (Acute) Medical History Pacemaker Hypercholesterolemia Stage 4 chronic kidney disease H/O malignant neoplasm of colon History of breast cancer CONTRERAS (nonalcoholic steatohepatitis) Cirrhosis Ischemic neuropathy of foot PAD (peripheral artery disease) Hypertension Paroxysmal atrial fibrillation Surgical History Hemicolectomy (06/30/13) Right, 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 Park @ [facility] [place]-no recurrence Social History Smoking/Tobacco Use Status: Never Smoking risk assessment performed?: Yes Alcohol Intake: never Drug use: Never Substance use type: does not use Housing: house Do you feel safe at home: Yes Do you feel safe in your relationship?: Yes
[2025-06-12] VITALS (108 sets, daily range): BP systolic 70–117; BP diastolic 23–66; PULSE 57–159; RESP 10–19; TEMP 35.8–36.5; O2SAT 96–100
--- NOTE | 2025-06-12 00:34 | NUR.NOTE ---
after 5 failed attempts to start an IV ED MD is starting a central line Nursing Note:
[2025-06-12 01:24] LABS: Abs Immature Grans 0.02 10^3/uL (0.0-0.06); HCT 27.2 % (36.0-46.0); HGB 9.2 g/dL (11.2-15.7); Immature Grans % 0.3 %; MCH 28.6 pg (27.0-33.0); MCHC 33.8 % (32.0-36.0); MCV 85 fL (80-95); MPV 9.4 fL (8.0-11.0); Platelet Count 113 10^3/uL (130-400); RBC 3.22 10^6/uL (3.93-5.22); RDW 14.1 % (11.7-14.6); RDW-SD 43.8 fL; WBC 6.23 10^3/uL (4.4-10.8)
[2025-06-12] MEDS: dilTIAZem 25 MG/5 ML VIAL 5 MG IVP (01:24)
[2025-06-12] MEDS: Normal Saline 1,000 ML 1000 ML IV ×2 (01:24→03:30)
--- NOTE | 2025-06-12 01:44 | NUR.NOTE ---
at 0140 blood products started and charted on paper form Nursing Note:
--- NOTE | 2025-06-12 01:45 | RT.EKG_ITS ---
APPROVED REPORT Exam: Resting ECG Reason for Exam: chest pain Patient Location: E HR:60 bpm ECG Measurements Heart Rate 60 AXIS AK 228 P [id number] QRSd 124 QRS -50 QT 433 T 36 QTc 433 Conclusion Atrial-paced rhythm RBBB and LAFB...QRSd >120mS, axis(-40,240) no ST segment or T wave abnormalities to suggest occlusive [place]
[2025-06-12 01:47] LABS: INR 1.0 (0.9-1.1); PTT Activated 23.6 sec (20.6-30.2); Prothrombin Time 10.4 sec (9.1-11.1)
[2025-06-12 01:49] LABS: ALT 20 U/L (14-59); AST 23 U/L (15-37); Albumin 3.4 g/dL (3.4-5.0); Alkaline Phosphatase 61 U/L (46-116); Anion Gap 14.7 mmol/L (3-11); BUN 64 mg/dL (7-18); Bilirubin, Total 1.0 mg/dL (0.2-1.0); CO2 15.3 mmol/L (21.0-32.0); Calcium 9.5 mg/dL (8.5-10.1); Chloride 103 mmol/L (98-107); Estimated GFR 10.92 (mL/min/1.73m2); Glucose 104 mg/dL (74-106); Magnesium 1.6 mg/dL (1.8-2.4); Potassium 3.9 mmol/L (3.5-5.1); Sodium 133 mmol/L (136-145); Total Protein 6.5 g/dL (6.4-8.2)
[2025-06-12] MEDS: Magnesium Gluconate 500 MG TAB 1000 MG PO (02:11)
--- NOTE | 2025-06-12 02:45 | DI.CT_ITS ---
Exam(s) CT ABDOMEN PELVIS WO EXAM: CT ABDOMEN PELVIS WO CLINICAL HISTORY: bleeding into ostomy bag. TECHNIQUE: Imaging Protocol: Axial computed tomography images with coronal and sagittal reformatted images were created and reviewed. COMPARISON: CT CT CHEST/ABD/PEL WO from 04/24/[address] ABDOMEN PELVIS WO from 07/12/2024 FINDINGS: ABDOMEN: Lung Bases: Normal where visualized. Liver: There is a lobulated contour of the liver suggesting hepatic cirrhosis. There is a stable area of decreased attenuation in the right lobe of the liver. Gallbladder and biliary tract: Status post cholecystectomy. There is stable mild dilatation of the extrahepatic bile duct. This may be due to post cholecystectomy state. Pancreas: Normal density, no abnormal calcifications or inflammatory process. There is a stable 1 cm cyst in the body of the pancreas. Spleen: The spleen is at the upper limits of normal in size. There is a 1.7 cm round hypodensity in the anterior aspect of the spleen. This may represent hemangioma or cyst. This was present on the prior examination. Kidneys: Normal size, contour and axis.No radiodense stones or obstructive uropathy. There are stable bilateral renal cysts. No follow-up is recommended. Adrenal glands: No mass is seen. Lymph nodes: Within normal limits. Abdominal Aorta: Abdominal portion non-dilated. Atherosclerotic calcification is present. PELVIS: Bladder:Symmetric distention, no gross wall thickening. Bowel: There has been resection of the right colon. There is a right lower quadrant enterostomy. There is again seen a large amount of small bowel within a peristomal hernia. There is no evidence of bowel obstruction. No bowel wall thickening is present. Peritoneal cavity: The mass in the right lower quadrant is again noted. It measures approximately 4 cm. No free air. Reproductive organs: Status post hysterectomy. Bones: Age-appropriate degenerative changes are seen throughout the spine. There is stable grade 2 anterolisthesis of L3 on L4 and grade 1 anterolisthesis of L4 on L5. There is a stable compression deformity of T12. Soft Tissues: Within normal limits. IMPRESSION: 1. No acute abdominal or pelvic process. 2. There is a right lower quadrant enterostomy with a large peristomal hernia again noted. There is no evidence of bowel obstruction or or incarceration. 3. Stable 4 cm right lower quadrant mass. There are some fatty components to this lesion and may represent a ovarian dermoid. It is unchanged compared to prior examinations. If further imaging is warranted MRI or ultrasound may be obtained for further evaluation. 4. Stable findings in the abdomen and pelvis as described above. 5. The preliminary [facility] report was reviewed. RADIATION DOSE DELIVERED: 410.07mGy.cm Total DLP DATA REPOSITORY: All CT scans at this facility are submitted to the National Radiology Data Registry (NRDR) Dose Index Registry (DIR) with the [employer] (ACR). RADIATION OPTIMIZATION: All CT scans at this facility use at least one of these dose optimization techniques: automated exposure control; mA and/or kV adjustment per patient size (includes targeted exams where dose is matched to clinical indication); or iterative reconstruction.
--- NOTE | 2025-06-12 03:37 | NUR.NOTE ---
Blood products ended at 0330 Nursing Note:
[2025-06-12] MEDS: Pantoprazole 40 MG VIAL IVP (03:41)
--- NOTE | 2025-06-12 03:44 | DI.[facility]_ITS ---
PROCEDURE INFORMATION: Exam: CT Abdomen And Pelvis Without Contrast Exam date and time: 06/12/2025 3:12 AM Age: 89 years old Clinical indication: Other: Bleeding into ostomy bag; Prior surgery; Surgery date: 6+ months; Surgery type: Pacemaker, hemicolectomy TECHNIQUE: Imaging protocol: Computed tomography of the abdomen and pelvis without contrast. Radiation optimization: All CT scans at this facility use at least one of these dose optimization techniques: automated exposure control; mA and/or kV adjustment per patient size (includes targeted exams where dose is matched to clinical indication); or iterative reconstruction. COMPARISON: 1. CT ABDOMEN PELVIS WO 07/12/2024 4:[address] ABDOMEN PELVIS CTA 05/21/2024 2:13 AM FINDINGS: Lungs: Lung bases clear. Liver: Small liver with a nodular contour characteristic of hepatic cirrhosis. Clinical correlation recommended. Indeterminate 1.1 cm x 1.6 cm hypoattenuating hepatic lesion on image 40 of series 3, not well characterized by today's exam, uncertain etiology and clinical significance but also present on the comparison exam from May 21, 2024. Gallbladder and biliary ducts: Prior cholecystectomy with postop biliary dilatation. Pancreas: Moderate atrophy of the pancreas. 1.1 cm x 2.1 cm cyst-like hypoattenuating hepatic lesion in the pancreatic body on image 79 of series 3, likely a pancreatic cyst, pseudocyst, or cystic neoplasm, also present on the comparison exams. Spleen: Spleen top-normal in size measuring 13 cm. Indeterminate hypoattenuating splenic lesion, incompletely characterized but most likely a small cyst or hemangioma. Adrenal glands: Normal appearing adrenal glands. Kidneys and ureters: 3.3 cm left renal cyst with a density of 7 Hounsfield units density on image 105 of series 3. 5.7 cm left renal cyst with a density of 13 Hounsfield units on image 156 of series 3. Additional smaller hypoattenuating renal lesions, not well characterized but statistically most likely additional small cysts. No radiopaque urinary tract stones, hydronephrosis, or evidence of recent stone passage. Stomach and bowel: No oral contrast. Stomach partially decompressed. No small bowel dilatation to suggest obstruction. 5.7 cm x 12.0 cm x 17.3 cm fat and small bowel containing parastomal hernia on the right. Prior right hemicolectomy with a right-sided ileostomy and a long colorectal pouch. No evidence of diverticulitis or colitis through the colorectal pouch. Appendix: Suspected to be surgically absent in the setting of a prior right hemicolectomy. Correlation with surgical history recommended. Intraperitoneal space: No gross ascites or free air. Vasculature: Normal caliber abdominal aorta. Lymph nodes: No pathologically enlarged mesenteric, retroperitoneal, or pelvic sidewall lymph nodes. Urinary bladder: Urinary bladder partially collapsed but grossly unremarkable, as seen. Reproductive: Prior hysterectomy. 4.2 cm x 3.0 cm mass redemonstrated in the right adnexal region apparently containing fatty components, image 331 of series 3, 4.0 cm x 3.6 cm on the comparison exam from May 21, 2024. Bones/joints: T12: Old superior endplate compression fracture deformity with mild loss of central vertebral height and a Schmorl's node extending through the superior endplate, also present on the comparison exam from July 12, 2024. L2: Old superior endplate compression fracture deformity with a large Schmorl's node extending through the superior endplate, also present on the prior exam. Grade 2 anterolisthesis of L3 on L4. Grade 1-2 anterolisthesis of L4 on L5. Prior lumbar surgery with posterior decompression at L3-L4 and L4-L5, also seen on the comparison exam. Soft tissues: Diastasis recti. Small fat containing ventral hernia in the upper anterior abdominal wall. Relative atrophy of the abdominal wall musculature. Large parastomal hernia, as detailed above. Small fat containing right paramidline ventral hernia at the level of the umbilicus. IMPRESSION: 1. Prior right hemicolectomy with a long colorectal pouch and a 5.7 cm x 12.0 cm x 17.3 cm small bowel containing parastomal hernia. No upstream small bowel dilatation to suggest obstruction. 2. Cirrhotic liver morphology. 3. 4.2 cm x 3.0 cm mass redemonstrated in the right adnexal region apparently containing fatty components. This finding is not well characterized by today's exam; however, a right ovarian dermoid could probably have this appearance. Comparison with remote prior imaging is recommended. Dictated and Authenticated by: Hood Howard MD. Orderin Cedric Lr MD
[2025-06-12 05:02] LABS: HCT 29.7 % (36.0-46.0); HGB 9.9 g/dL (11.2-15.7); MCH 29.3 pg (27.0-33.0); MCHC 33.3 % (32.0-36.0); MCV 88 fL (80-95); MPV 10.7 fL (8.0-11.0); RBC 3.38 10^6/uL (3.93-5.22); RDW 14.1 % (11.7-14.6); RDW-SD 45.2 fL; WBC 5.48 10^3/uL (4.4-10.8)
[2025-06-12 05:21] LABS: Platelet Count 86 10^3/uL (130-400)
--- NOTE | 2025-06-12 07:00 | SCONE_ITS ---
Date of service: 06/12/25 Time of Service: 07:00 Assessment and Plan Assessment and plan (1) Acute GI bleeding: Status: Acute Assessment and plan: 89-year-old female with acute bleeding from ileostomy. Spontaneously resolved. Ileostomy in the past related to peristomal ulcer, which may have recurred following ileostomy revision on 05/2024. Although no evidence of ischemia or obstruction, suspect parastomal hernia is contributing to ulcer formation and bleeding. Anemia had improved at time of admission compared to last month but patient got 1 unit of blood. Hemoglobin now 10 - In setting of underlying comorbidities, hostile nature of patient's abdomen, and her failure to thrive; patient is a very poor surgical candidate - No surgical intervention recommended at this time - Enteroscopy could be considered, however that would require bowel prep and anesthesia. Do not feel the patient would tolerate either of those well - Okay to discharge from general surgery-standpoint - follow-up with Dr. Webb outpatient - Recommend palliative care see patient and family again (2) Parastomal hernia: Status: Acute (3) Parastomal ulcer of enterostomy: Status: Suspected (4) Adult failure to thrive: Status: Acute (5) CKD (chronic kidney disease): Status: Chronic History of Present Illness History of Present Illness Chief Complaint: Stomal bleeding Narrative: 89-year-old female with history of end ileostomy, parastomal hernia, cirrhosis, stage IV CKD presenting for recurrent stomal bleeding. Stomal bleeding had been a longstanding problem for the patient, intermittent in nature, but often requiring transfusions. She was found to have an ulcer just below the level of the stoma so she underwent a local stomal revision and resection of small bowel segment/ulcer 05/2024, which was complicated by peristomal abscess requiring IR drain. Stomal bleeding ceased for approximately 1 year until patient was readmitted 03/2025. Since that time patient was admitted 04/2025 with failure to thrive and discharged to SNF. Patient returns with recurrent stomal bleeding. Hemoglobin 9.2 upon admission to emergency department. Received 1 unit of blood. Hemoglobin now 9.9 and stable. History of CKD, cirrhosis, afib with pacer in place, recurrent stoma bleeds from ieloostomy. Presenting with bleeding from stoma - had an episode yesterday where it was bleeding but this resolved on it's own. Started up again last night and filled her bag with blood. She felt somewhat lightheaded. No chest pain or shortness of breath. No syncope. Otherwise no fevers, chills, rash, nausea, vomiting, abdominal pain, or other concerns. Review of Systems Constitutional Constitutional: Denies chills, Denies fever(s) and Denies frequent falls ENT Ears, Nose, Mouth, and Throat: Reports dizziness Cardiovascular Cardiovascular: Denies chest pain, Denies edema and Denies dyspnea Respiratory Respiratory: Denies cough and Denies dyspnea Gastrointestinal Gastrointestinal: Denies abdominal pain, Reports hematochezia, Denies nausea and Denies vomiting Neurologic Neurologic: Denies confusion, Reports dizziness and Denies frequent falls Psychiatric Psychiatric: Denies confusion PFSH All Active Problems (Updated 06/12/25 @ 12:01 by Surinder Morton DO) Parastomal hernia (Acute) Goals of care, counseling/discussion (Acute) Acute GI bleeding (Acute) CKD (chronic kidney disease) (Chronic) Wide-complex tachycardia (Acute) Acute hypotension (Acute) Deficit in activities of daily living (ADL) (Acute) Adult failure to thrive (Acute) Ileum ulcer (Acute) Unintentional weight loss (Acute) GI bleeding (Chronic) PSVT (paroxysmal supraventricular tachycardia) (Acute) At high risk for skin breakdown (Acute) Abn react-external stoma (Acute) Elevated serum creatinine (Acute) Chronic pain in left foot (Acute) Medical History Pacemaker Hypercholesterolemia Stage 4 chronic kidney disease H/O malignant neoplasm of colon History of breast cancer CONTRERAS (nonalcoholic steatohepatitis) Cirrhosis Ischemic neuropathy of foot PAD (peripheral artery disease) Hypertension Paroxysmal atrial fibrillation Surgical History Hemicolectomy (06/30/13) Right, 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 Park @ [facility] [place]-no recurrence Social History Smoking/Tobacco Use Status: Never Smoking risk assessment performed?: Yes Alcohol Intake: never Drug use: Never Substance use type: does not use Housing: house Do you feel safe at home: Yes Do you feel safe in your relationship?: Yes Exam Const General: cooperative, comfortable, no acute distress and other (frail appearing) Eyes EOM: EOM intact bilaterally Resp Effort & Inspection: normal respiratory effort and no cough Cardio Rate: regular rate GI Inspection: non-distended, scar (midline well healed) and other (RLQ stoma pink and healthy, no bleeding or ulcers) Skin General skin exam: turgor normal and no ecchymosis Neuro General: patient alert and patient awake Speech: speech normal Results Last Vital Signs Temp 36.6 C 06/11/25 23:43 Pulse 60 06/12/25 05:17 Resp 12 06/12/25 05:20 BP 82/36 L 06/12/25 05:17 Pulse Ox 100 06/12/25 05:10 Labs 06/12/25 04:38 06/12/25 01:16 Labs: Laboratory Results - last 24 hr 06/11/25 06/11/25 06/12/25 23:47 23:58 00:14 WBC Cancelled RBC Cancelled Hgb Cancelled Hct Cancelled MCV Cancelled MCH Cancelled MCHC Cancelled RDW Cancelled Plt Count Cancelled MPV Cancelled Immature Gran % Cancelled Neutrophils % Cancelled Band Neutrophils % Cancelled Lymphocytes % Cancelled Atypical Lymphs % Cancelled Monocytes % Cancelled Eosinophils % Cancelled Basophils % Cancelled Metamyelocytes % Cancelled Myelocytes % Cancelled Promyelocytes % Cancelled Other Cells % Cancelled Nucleated RBC % Cancelled Absolute Neutrophils Cancelled Absolute Lymphocytes Cancelled Absolute Monocytes Cancelled Absolute Eosinophils Cancelled Absolute Basophils Cancelled RBC Morphology Cancelled Polychromasia Cancelled Hypochromasia Cancelled Poikilocytosis Cancelled Basophilic Stippling Cancelled Anisocytosis Cancelled Microcytosis Cancelled Macrocytosis Cancelled Spherocytes Cancelled Tear Drop Cells Cancelled Ovalocytes Cancelled Stomatocytes Cancelled [place]ial[place] Bodies Cancelled [place] Cells/Echinocytes Cancelled Acanthocytes (Spur) Cancelled Schistocytes Cancelled PT Cancelled INR Cancelled APTT Cancelled Sodium Cancelled Potassium Cancelled Chloride Cancelled Carbon Dioxide Cancelled Anion Gap Cancelled BUN Cancelled Creatinine Cancelled Est GFR (CKD-EPI 2020) Cancelled Glucose Cancelled Calcium Cancelled Magnesium Cancelled Total Bilirubin Cancelled AST Cancelled ALT Cancelled Alkaline Phosphatase Cancelled Total Protein Cancelled Albumin Cancelled ABO/Rh Cancelled Cancelled Antibody Screen Cancelled Cancelled Crossmatch 06/12/25 06/12/25 01:16 04:38 WBC 6.23 5.48 RBC 3.22 L 3.38 L Hgb 9.2 L 9.9 L Hct 27.2 L 29.7 L MCV 85 88 MCH 28.6 29.3 MCHC 33.8 33.3 RDW 14.1 14.1 Plt Count 113 L 86 L MPV 9.4 10.7 Immature Gran % 0.3 Neutrophils % 66.0 Band Neutrophils % Lymphocytes % 23.4 Atypical Lymphs % Monocytes % 8.7 Eosinophils % 1.3 Basophils % 0.3 Metamyelocytes % Myelocytes % Promyelocytes % Other Cells % Nucleated RBC % 0.0 Absolute Neutrophils 4.11 Absolute Lymphocytes 1.46 Absolute Monocytes 0.54 Absolute Eosinophils 0.08 Absolute Basophils 0.02 RBC Morphology Polychromasia Hypochromasia Poikilocytosis Basophilic Stippling Anisocytosis Microcytosis Macrocytosis Spherocytes Tear Drop Cells Ovalocytes Stomatocytes Dial-[place] Bodies [place] Cells/Echinocytes Acanthocytes (Spur) Schistocytes PT 10.4 INR 1.0 APTT 23.6 Sodium 133 L Potassium 3.9 Chloride 103 Carbon Dioxide 15.3 L Anion Gap 14.7 H BUN 64 H Creatinine 3.8 H* Est GFR (CKD-EPI 2020) 10.92 Glucose 104 Calcium 9.5 Magnesium 1.6 L Total Bilirubin 1.0 AST 23 ALT 20 Alkaline Phosphatase 61 Total Protein 6.5 Albumin 3.4 ABO/Rh A Positive Antibody Screen POSITIVE Crossmatch See Detail
[2025-06-12] MEDS: Lactated Ringers 1,000 ML 75 ML IV (07:54)
--- NOTE | 2025-06-12 08:57 | W.PC.ACHO ---
Registration Status: REG ER Primary Language: Preferred Language: Romanian ED Information & Data Chief Complaint Abd Prob 06/11/25 23:51 Triage Note PT has blood coming from her 06/11/25 23:43 stoma that started yesterday. Medical / Surgical History (Last Reviewed 05/01/25 @ 16:25 by Elyse Silverman NP) Pacemaker Hypercholesterolemia Stage 4 chronic kidney disease H/O malignant neoplasm of colon History of breast cancer CONTRERAS (nonalcoholic steatohepatitis) Cirrhosis Ischemic neuropathy of foot PAD (peripheral artery disease) Hypertension Paroxysmal atrial fibrillation (Last Reviewed 05/01/25 @ 16:25 by Elyse Silverman NP) Hemicolectomy (06/30/13) Colostomy Colonoscopy Most Recent Vital Signs Temperature 97.9 F 06/11/25 23:43 Temperature Source Oral 06/11/25 23:43 Pulse 65 06/12/25 07:50 Pulse 65 06/12/25 07:50 Respiratory Rate 12 06/12/25 07:50 Blood Pressure 83/35 L 06/12/25 07:46 Blood Pressure Mean 48 06/12/25 07:46 Pulse Oximetry 98 06/12/25 07:50 Pain Level 0 06/11/25 23:43 Allergies No Known Drug Allergies Allergy (Verified 06/11/25 23:48) none Active Medications Generic Name Dose Route Start Last Admin Trade Name Anya PRN Reason Stop Dose Admin Ringer's Solution 1,000 mls @ 75 mls/hr 06/12/25 07:30 06/12/25 07:54 IV 75 mls/hr INFUSION HENNA Administration IV IV Catheter Type [Right Saline Lock Forearm] IV Catheter Gauge [Right 20 Forearm] Diet Orders Category Date Time Status Regular/Normal [DIET] Nutrition 06/12/25 Lunch Active Diagnostics 06/12/25 06/12/25 06/12/25 Range/Units 04:50 04:38 01:16 WBC 5.48 6.23 RBC 3.38 L 3.22 L Hgb 9.9 L 9.2 L Hct 29.7 L 27.2 L MCV 88 85 MCH 29.3 28.6 MCHC 33.3 33.8 RDW 14.1 14.1 Plt Count 86 L 113 L MPV 10.7 9.4 Immature Gran % 0.3 Neutrophils % 66.0 Band Neutrophils % Lymphocytes % 23.4 Atypical Lymphs % Monocytes % 8.7 Eosinophils % 1.3 Basophils % 0.3 Metamyelocytes % Myelocytes % Promyelocytes % Other Cells % Nucleated RBC % 0.0 Absolute Neutrophils 4.11 Absolute Lymphocytes 1.46 Absolute Monocytes 0.54 Absolute Eosinophils 0.08 Absolute Basophils 0.02 RBC Morphology Polychromasia Hypochromasia Poikilocytosis Basophilic Stippling Anisocytosis Microcytosis Macrocytosis Spherocytes Tear Drop Cells Ovalocytes Stomatocytes Dial-[place] Bodies [place] Cells/Echinocytes Acanthocytes (Spur) Schistocytes PT 10.4 INR 1.0 APTT 23.6 Sodium 133 L Potassium 3.9 Chloride 103 Carbon Dioxide 15.3 L Anion Gap 14.7 H BUN 64 H Creatinine 3.8 H* Est GFR (CKD-EPI 2020) 10.92 Glucose 104 Calcium 9.5 Magnesium 1.6 L Total Bilirubin 1.0 AST 23 ALT 20 Alkaline Phosphatase 61 Total Protein 6.5 Albumin 3.4 ABO/Rh A Positive Antibody Screen POSITIVE Antibody Identification Pending Antibody ID Referred Pending Crossmatch See Detail 06/12/25 06/11/25 06/11/25 Range/Units 00:14 23:58 23:47 WBC Cancelled RBC Cancelled Hgb Cancelled Hct Cancelled MCV Cancelled MCH Cancelled MCHC Cancelled RDW Cancelled Plt Count Cancelled MPV Cancelled Immature Gran % Cancelled Neutrophils % Cancelled Band Neutrophils % Cancelled Lymphocytes % Cancelled Atypical Lymphs % Cancelled Monocytes % Cancelled Eosinophils % Cancelled Basophils % Cancelled Metamyelocytes % Cancelled Myelocytes % Cancelled Promyelocytes % Cancelled Other Cells % Cancelled Nucleated RBC % Cancelled Absolute Neutrophils Cancelled Absolute Lymphocytes Cancelled Absolute Monocytes Cancelled Absolute Eosinophils Cancelled Absolute Basophils Cancelled RBC Morphology Cancelled Polychromasia Cancelled Hypochromasia Cancelled Poikilocytosis Cancelled Basophilic Stippling Cancelled Anisocytosis Cancelled Microcytosis Cancelled Macrocytosis Cancelled Spherocytes Cancelled Tear Drop Cells Cancelled Ovalocytes Cancelled Stomatocytes Cancelled Dial-[place] Bodies Cancelled [place] Cells/Echinocytes Cancelled Acanthocytes (Spur) Cancelled Schistocytes Cancelled PT Cancelled INR Cancelled APTT Cancelled Sodium Cancelled Potassium Cancelled Chloride Cancelled Carbon Dioxide Cancelled Anion Gap Cancelled BUN Cancelled Creatinine Cancelled Est GFR (CKD-EPI 2021) Cancelled Glucose Cancelled Calcium Cancelled Magnesium Cancelled Total Bilirubin Cancelled AST Cancelled ALT Cancelled Alkaline Phosphatase Cancelled Total Protein Cancelled Albumin Cancelled ABO/Rh Cancelled Cancelled Antibody Screen Cancelled Cancelled Antibody Identification Antibody ID Referred Crossmatch Intake and Output - 24 Hour Total 06/11/25 23:38 thru 06/12/25 01:30 Intake Total 100 Balance 100 Weight 134 lb 7.712 oz Intake: IV 100 Falls Risk Assessment History of Falls No History 06/11/25 23:46 Contributing Factors No Factors 06/11/25 23:46 Ambulatory Aids Independent 06/11/25 23:46 Tubes/Lines None 06/11/25 23:46 Gait Evaluation No gait disturbance 06/11/25 23:46 Cognition No cognitive impairment 06/11/25 23:46 Fall Total Score 0 06/11/25 23:46 Level of Risk Standard/Low Risk 06/11/25 23:46 Notes 06/12/25 03:37 Nursing Notes by Bill Rod Blood products ended at 0330 Nursing Note: Initialized on 06/12/25 03:37 - END OF NOTE 06/12/25 01:44 Nursing Notes by Bill Rod at 0140 blood products started and charted on paper form Nursing Note: Initialized on 06/12/25 01:44 - END OF NOTE 06/12/25 01:44 Nursing Notes by Bill Rod Nursing Note: Initialized on 06/12/25 01:44 - END OF NOTE 06/12/25 00:34 Nursing Notes by Bill Rod after 5 failed attempts to start an IV ED MD is starting a central line Nursing Note: Initialized on 06/12/25 00:34 - END OF NOTE v v v v v v v v v Sending and/or Receiving Nurses: Please use comment section below to note any information pertinent to the patient hand-off not included above. Information / Comments: BP 93/43 HR A Paced at 60bpm but upon arrival 5mg diltazem IVP given RR15 Temp: 37 Report received from:Gabi Gomez RN
--- NOTE | 2025-06-12 10:46 | HPE_ITS ---
Date of service: 06/12/25 Time of Service: 08:30 Assessment and Plan Assessment and plan (1) Chronic atrial fibrillation with RVR: Status: Resolved Assessment and plan: - Upon initial presentation patient was in A-fib RVR in ED - given diltiazem 5 mg IVP - Paced - HR 60's on admission (2) 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: Status: Resolved Assessment and plan: - hemocult pending - no alex blood noted in bag. Hgb stable 9.2 on admission; one unit of blood given, 2 litres NS - hgb then 9.8 - Continue to manage as per general surgery (3) Pacemaker: Assessment and plan: Paced rhythm - 60'd History of Present Illness History of Present Illness Chief Complaint: Bleeding from ileostomy Narrative: 89-year-old female with complex medical history including CKD stage 4, cirrhosis, AFib with pacemaker, prior colon cancer with hemicolectomy and colostomy, presents with recurrent stoma bleeding. She had one episode yesterday that resolved spontaneously, but bleeding recurred tonight, filling her ostomy bag with dark blood. [place] lightheaded but denied chest pain, SOB, syncope, or other systemic symptoms. No active GI symptoms at presentation aside from bleeding. Labs in the ED: * Hgb: 9.2 ? 9.9 * Platelets: ? 113 ? 86 * Creatinine: ? 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 Patient diagnosed with : Wide-complex tachycardia (AFib with RVR) worsened hemodynamics. Chronic thrombocytopenia and anemia?likely multifactorial (cirrhosis, chronic bleeding, CKD). Recurrent stoma bleeds not currently active; prior GI consult found no surgical correction feasible. Patient not a candidate for high-intensity interventions, but still amenable to basic supportive care including transfusion. Treatment in the ED: Attempted central line (L IJ) unsuccessful due to guidewire resistance; patient declined further attempts. Peripheral IV placed in right arm despite lymphedema due to need for access. Normal Saline 0.9% 2 litres IV Transfused 1 unit PRBC; HR and BP improved. IV Diltiazem 5 mg given for rate control. Magnesium 1 gm oral Started IV Protonix for potential upper GI source. Admit to medicine floor for monitoring of re-bleeding, vitals, and trending labs. Continue supportive care (fluids, blood as needed, electrolyte correction). Surgical consult placed for stoma evaluation in the morning. Palliative care/hospice consult to be initiated. DNR/DNI clarified and agreed upon. Review of Systems Narrative: * General: * Denies fever, chills, or recent weight gain. * Reports lightheadedness. * Reports unintentional weight loss and functional decline. * Cardiovascular: * Denies chest pain. * History of atrial fibrillation with episodes of rapid ventricular response (RVR). * Reports intermittent palpitations (wide-complex tachycardia noted in ED). * Respiratory: * Denies shortness of breath, cough, or wheezing. * No respiratory distress observed. * Gastrointestinal: * Reports recurrent bleeding from ileostomy stoma, with recent episode filling ostomy bag with dark red/purple blood. * Denies abdominal pain, nausea, vomiting, hematemesis, or melena. * Reports thin, watery brown stool from ostomy following bleeding episode. * Genitourinary: * Denies dysuria, hematuria, or suprapubic pain. * Neurologic: * Denies syncope or focal deficits. * Mild lightheadedness noted. * Alert and oriented, GCS 15. * Skin: * No rashes reported. * Stoma described as macerated and unhealthy in appearance. * Hematologic: * Known chronic anemia and thrombocytopenia. * Actively bleeding from ostomy earlier; currently no active bleeding. PFSH All Active Problems (Updated 06/12/25 @ 12:01 by Surinder Morton DO) Parastomal hernia (Acute) Goals of care, counseling/discussion (Acute) Acute GI bleeding (Acute) CKD (chronic kidney disease) (Chronic) Wide-complex tachycardia (Acute) Acute hypotension (Acute) Deficit in activities of daily living (ADL) (Acute) Adult failure to thrive (Acute) Ileum ulcer (Acute) Unintentional weight loss (Acute) GI bleeding (Chronic) PSVT (paroxysmal supraventricular tachycardia) (Acute) At high risk for skin breakdown (Acute) Abn react-external stoma (Acute) Elevated serum creatinine (Acute) Chronic pain in left foot (Acute) Medical History Pacemaker Hypercholesterolemia Stage 4 chronic kidney disease H/O malignant neoplasm of colon History of breast cancer CONTRERAS (nonalcoholic steatohepatitis) Cirrhosis Ischemic neuropathy of foot PAD (peripheral artery disease) Hypertension Paroxysmal atrial fibrillation Surgical History Hemicolectomy (06/30/13) Right, 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 Park @ [facility] – [place], 2015-no recurrence Social History Smoking/Tobacco Use Status: Never Smoking risk assessment performed?: Yes Alcohol Intake: never Drug use: Never Substance use type: does not use Housing: house Do you feel safe at home: Yes Do you feel safe in your relationship?: Yes Meds Allergies and Home Medications Allergies Allergy/AdvReac Type Severity Reaction Status Date / Time No Known Drug Allergies Allergy none Verified 06/11/25 23:48 Home Medications ?Medication ?Instructions ?Recorded ?Confirmed ?Type gabapentin 600 mg tablet mg 06/11/25 History Exam Narrative Exam Narrative: General: * Alert, oriented, in no acute distress. * Appears pale. Head/Eyes: * Normocephalic, atraumatic. * Pale conjunctiva noted (suggestive of anemia). Neck: * Trachea midline. * Neck supple, no lymphadenopathy. ENT: * Moist mucous membranes. Cardiovascular: * Regular rate and rhythm (RRR). * No murmurs appreciated. * History of pacemaker, rhythm varies between paced and tachyarrhythmia Respiratory: * No respiratory distress. * Clear to auscultation bilaterally. Abdomen: * Soft, non-distended, non-tender. * Ostomy present. * ~500cc dark purple fluid noted in ostomy bag on arrival. * No active bleeding from stoma at time of exam. * Thin watery brown stool observed. Genitourinary: * No suprapubic tenderness Extremities: * No deformities. * No peripheral edema. * Right arm with history of lymphedema (IV placed here with patient?s consent). Neurologic: * GCS 15. * Moves all extremities freely against gravity. * No focal deficits. Skin/Stoma: * Ostomy site noted to be macerated, not actively bleeding on exam. Results Labs 06/12/25 04:38 06/12/25 01:16 Labs: Laboratory Results - last 24 hr 06/11/25 06/11/25 06/12/25 23:47 23:58 00:14 WBC Cancelled RBC Cancelled Hgb Cancelled Hct Cancelled MCV Cancelled MCH Cancelled MCHC Cancelled RDW Cancelled Plt Count Cancelled MPV Cancelled Immature Gran % Cancelled Neutrophils % Cancelled Band Neutrophils % Cancelled Lymphocytes % Cancelled Atypical Lymphs % Cancelled Monocytes % Cancelled Eosinophils % Cancelled Basophils % Cancelled Metamyelocytes % Cancelled Myelocytes % Cancelled Promyelocytes % Cancelled Other Cells % Cancelled Nucleated RBC % Cancelled Absolute Neutrophils Cancelled Absolute Lymphocytes Cancelled Absolute Monocytes Cancelled Absolute Eosinophils Cancelled Absolute Basophils Cancelled RBC Morphology Cancelled Polychromasia Cancelled Hypochromasia Cancelled Poikilocytosis Cancelled Basophilic Stippling Cancelled Anisocytosis Cancelled Microcytosis Cancelled Macrocytosis Cancelled Spherocytes Cancelled Tear Drop Cells Cancelled Ovalocytes Cancelled Stomatocytes Cancelled Dial-[place] Bodies Cancelled [place] Cells/Echinocytes Cancelled Acanthocytes (Spur) Cancelled Schistocytes Cancelled PT Cancelled INR Cancelled APTT Cancelled Sodium Cancelled Potassium Cancelled Chloride Cancelled Carbon Dioxide Cancelled Anion Gap Cancelled BUN Cancelled Creatinine Cancelled Est GFR (CKD-EPI 2020) Cancelled Glucose Cancelled Calcium Cancelled Magnesium Cancelled Total Bilirubin Cancelled AST Cancelled ALT Cancelled Alkaline Phosphatase Cancelled Total Protein Cancelled Albumin Cancelled ABO/Rh Cancelled Cancelled Antibody Screen Cancelled Cancelled Crossmatch 06/12/25 06/12/25 01:16 04:38 WBC 6.23 5.48 RBC 3.22 L 3.38 L Hgb 9.2 L 9.9 L Hct 27.2 L 29.7 L MCV 85 88 MCH 28.6 29.3 MCHC 33.8 33.3 RDW 14.1 14.1 Plt Count 113 L 86 L MPV 9.4 10.7 Immature Gran % 0.3 Neutrophils % 66.0 Band Neutrophils % Lymphocytes % 23.4 Atypical Lymphs % Monocytes % 8.7 Eosinophils % 1.3 Basophils % 0.3 Metamyelocytes % Myelocytes % Promyelocytes % Other Cells % Nucleated RBC % 0.0 Absolute Neutrophils 4.11 Absolute Lymphocytes 1.46 Absolute Monocytes 0.54 Absolute Eosinophils 0.08 Absolute Basophils 0.02 RBC Morphology Polychromasia Hypochromasia Poikilocytosis Basophilic Stippling Anisocytosis Microcytosis Macrocytosis Spherocytes Tear Drop Cells Ovalocytes Stomatocytes Dial-[place] Bodies [place] Cells/Echinocytes Acanthocytes (Spur) Schistocytes PT 10.4 INR 1.0 APTT 23.6 Sodium 133 L Potassium 3.9 Chloride 103 Carbon Dioxide 15.3 L Anion Gap 14.7 H BUN 64 H Creatinine 3.8 H* Est GFR (CKD-EPI 2020) 10.92 Glucose 104 Calcium 9.5 Magnesium 1.6 L Total Bilirubin 1.0 AST 23 ALT 20 Alkaline Phosphatase 61 Total Protein 6.5 Albumin 3.4 ABO/Rh A Positive Antibody Screen POSITIVE Crossmatch See Detail Last Vital Signs Temp 35.8 C L 06/12/25 09:10 Pulse 63 06/12/25 09:10 Resp 17 06/12/25 09:10 BP 103/51 L 06/12/25 09:10 Pulse Ox 99 06/12/25 09:10 Time Spent Time spent with Patient: 40-54 minutes Time was spent: preparing to see the patient(eg.review tests), ordering medications,tests, procedures, referring, communicating with other health memory care program director, indepentently interpreting results, counseling the patient and care coordination
--- NOTE | 2025-06-12 19:22 | DSE_ITS ---
Date of service: 06/12/25 Time of Service: 17:30 DS: Diagnosis Discharge Diagnosis (1) Chronic atrial fibrillation with RVR: Status: Resolved (2) 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: Status: Resolved (3) Pacemaker: Discharge Plan Disposition Patient Disposition: Against Medical Advice Condition: Fair Discharge Details Reason For Visit: GIB Admit Date/Time: 06/12/25 07:16 Admit Provider: Arsh Saleh Attending Provider: Arsh Saleh Primary Care Provider: Dede Miller Hospital Course Hospital Course: An 89-year-old female with a complex medical history including chronic kidney disease (stage 4), cirrhosis, paroxysmal atrial fibrillation (with pacemaker), prior colon cancer (status post hemicolectomy and end ileostomy), and chronic anemia presented to the ED with recurrent bleeding from her ileostomy. She reported a previous episode the day prior that self-resolved, but the bleeding recurred overnight, filling her ostomy bag with dark blood. She also endorsed mild lightheadedness but denied chest pain, shortness of breath, or syncope. On evaluation, her hemoglobin was 9.2. She received IV fluids and one unit of PRBC, after which her hemoglobin improved to 9.9. CT abdomen/pelvis revealed a parastomal hernia without signs of obstruction or active bleeding. Her vitals and symptoms stabilized during hospitalization. Surgical consultation attributed the bleeding to a likely recurrence of a parastomal ulcer, potentially related to her parastomal hernia and prior stomal revision (05/2024), which had been complicated by abscess formation. Given her comorbidities, frailty, and poor overall prognosis, she was deemed a poor candidate for surgical or procedural intervention. No surgical management was recommended, and she was cleared for discharge from the surgical standpoint. Outpatient follow-up with Dr. Webb was advised, and palliative care involv ement was recommended. The patient was admitted briefly to the medicine service for supportive care, including blood transfusion, electrolyte management, and monitoring. Atrial fibrillation with RVR on presentation resolved with IV diltiazem, and her pacemaker maintained a stable rhythm thereafter. Unclear if medication list is accurate. Will have PCP follow up med rec. The patient left the hospital against medical advice in stable condition, alert, oriented, and aware of the potential risks. She remained hemodynamically stable with no active bleeding noted at the time of departure. Patient left with her . Risks of Leaving AMA * Clinical Deterioration * Unresolved or partially treated medical problems (e.g., GI bleeding, ane charu, arrhythmias) may worsen without ongoing care. * Risk of re-bleeding from the ileostomy or parastomal ulcer. * Risk of hemodynamic instability or recurrence of atrial fibrillation with RVR. * Worsening of renal function due to underlying CKD and inadequate fluid management. * Increased Readmission Rates and Mortality * Studies consistently show patients who leave AMA are at higher risk for: * 30-day readmission * Longer subsequent hospital stays * Increased mortality rates * Delayed or Missed Diagnoses * Potentially important diagnostic testing, specialist evaluations (e.g., palliative care, enteroscopy), or imaging may be missed or postponed. * Medication Non-Compliance or Errors * Patient may leave without full understanding of medications, resulting in: * Missed doses * Incorrect use * Adverse drug interactions * Limited Access to Outpatient Care * Many patients leaving AMA may not follow up as recommended. * In this case, if the patient does not follow up with general surgery or pa lliative care, symptoms could progress unnoticed. * Legal and Ethical Concerns * Providers must ensure the patient had capacity to make the decision. * Thorough documentation is necessary to confirm: * Patient was informed of the risks * Patient understood and voluntarily assumed the risks * Alternatives were offered and declined * Strain on Care Coordination * AMA discharges may disrupt the interdisciplinary care plan and burden caregivers or outpatient services unexpectedly. Given her: * Age and frailty * History of failure to thrive * High surgical risk and recent procedures * Chronic anemia and thrombocytopenia * Recurrent GI bleeding and low baseline hemoglobin ?leaving AMA may significantly increase the risk of morbidity and mortality, especially if follow-up is delayed or missed. Discussed with Dr Saleh Recommendations for Follow Up Recommended tests to be ordered by follow up provider: CBC; med rec Home Meds and New Rx's Prescriptions: Continued gabapentin 600 mg tablet 300 mg PO Q8H Patient Comments: TAKE 1 TABLET BY MOUTH THREE TIMES DAILY Discharge Instructions Additional Instructions: Leaving the Hospital Against Medical Advice (AMA): Important Information You have chosen to leave the hospital before your doctors believe it is medically safe. We want to make sure you understand the possible risks and what you can do to stay as safe as possible. Potential Risks of Leaving the Hospital Early * Your condition could get worse. * You are still at risk for serious complications, such as bleeding from your stoma, dizziness, or changes in your heart rhythm. * You may need to come back. * People who leave early are more likely to return to the hospital within a few days, often in worse condition. * You may miss important treatments or tests. * We had planned additional care (such as follow-up with surgery or palliative care) to help treat your bleeding and manage your comfort. * You might not have all the information you need. * If you leave now, you may not fully understand your medications, follow-up appointments, or warning signs to watch for. What You Should Do Now * Watch for serious symptoms: * Call 911 or go to the ER right away if you have: * New or worsening bleeding from your stoma * Dizziness, fainting, or weakness * Chest pain, shortness of breath, or a fast or irregular heartbeat * Take your medications as instructed. * If you have any questions about your medications, call your doctor or pharmacist. * Keep follow-up appointments. * You were advised to follow up with Dr. Webb (General Surgery) and Palliative Care. Please contact them to schedule. * Contact your primary care provider within 1?2 days for a check-in. Your Decision You have the right to make your own healthcare decisions. We want to be sure you are fully informed and understand that leaving AMA increases your health risks. Please call us or return to the hospital if you change your mind or need more help. Referrals: [facility] [OTHER, Hospice] Referral Note: Follow up post hospitalization. Dede Miller [Primary Care Provider, Medicine] Referral Note: Follow up in 1 week post hospitalization. Efren Webb MD [ [facility] STAFF PHYSICIAN, Surgery] Referral Note: Follow up in one-two weeks Problems: Acute GI bleeding; Parastomal hernia Diet:: As Tolerated Discharge Orders Discharge Orders: Discharge Order (Routine); Ordered 06/12/25 Ordered By: Dorota Freeman Other Ambulatory Orders: Complete Blood Count w/Diff (Routine) Timeframe: 3 Days Facility: [facility] - Location: Laboratory Outpatient - [facility] Ordered By: Dorota Freeman Discharge Data Discharge Date/Time-TO BE ENTERED AT DEPARTURE: 06/12/25 17:00 DS: Summary Time Spent with Patient providing and/or coordinating discharge services: Greater than 30 minutes Status at Discharge Functional status at discharge: uses cane/walker Overall status at discharge: patient is back to baseline Mental Status: mental status grossly normal Speech and Movement: speech and movement normal Mood: congruent mood Affect: normal affect Quality:SDOH Health Related Social Needs: Health related social needs risk of homeless lonely/is olated Health related social needs details Pt states that she uses home health. Health related social needs details: Pt states that she uses home health. Exam Narrative Exam Narrative: General: * Alert, oriented, in no acute distress. * Appears pale. Head/Eyes: * Normocephalic, atraumatic. * Pale conjunctiva noted (suggestive of anemia). Neck: * Trachea midline. * Neck supple, no lymphadenopathy. ENT: * Moist mucous membranes. Cardiovascular: * Regular rate and rhythm (RRR). * No murmurs appreciated. * History of pacemaker, rhythm varies between paced and tachyarrhythmia Respiratory: * No respiratory distress. * Clear to auscultation bilaterally. Abdomen: * Soft, non-distended, non-tender. * Ostomy present. * ~500cc dark purple fluid noted in ostomy bag on arrival. * No active bleeding from stoma at time of exam. * Thin watery brown stool observed. Genitourinary: * No suprapubic tenderness Extremities: * No deformities. * No peripheral edema. * Right arm with history of lymphedema (IV placed here with patient?s consent). Neurologic: * GCS 15. * Moves all extremities freely against gravity. * No focal deficits. Skin/Stoma: * Ostomy site noted to be macerated, not actively bleeding on exam. Psych Mental Status: mental status grossly normal Speech and Movement: speech and movement normal Mood: congruent mood Affect: normal affect DS: Data Vitals/I&O Vitals and I&O: Vital Signs Temperature 36.5 C 06/12/25 13:30 Temperature Source Temporal Artery Scan 06/12/25 13:30 Pulse 61 06/12/25 13:30 Pulse Rhythm Regular 06/12/25 09:10 Pulse 60 06/12/25 08:50 Respiratory Rate 12 06/12/25 13:30 Respiratory Effort Normal, Non-Labored 06/12/25 09:10 Respiratory Depth Normal 06/12/25 09:10 Respiratory Pattern Normal 06/12/25 09:10 Blood Pressure 114/45 L 06/12/25 13:30 Blood Pressure Mean 68 06/12/25 13:30 Pulse Oximetry 96 06/12/25 13:30 Oxygen Delivery Method Room Air 06/12/25 13:30 Oxygen Flow Rate 0 06/12/25 13:30 Pain Level 0 06/12/25 13:30 Comment Madai alarm placed in patient's chair at this time. 06/12/25 13:30 Intake & Output 06/11/25 06/12/25 06/12/25 23:59 11:59 23:59 Intake Total 1100 / 1708.75 608.75 / 1708.75 Output Total 200 / 375 175 / 375 Balance 900 / 1333.75 433.75 / 1333.75 Weight 61 kg 62.051 kg Intake: IV 1100 / 1708.75 608.75 / 1708.75 Output: Stool 200 / 375 175 / 375 Other: Urine Color Yellow Urine Appearance Clear Data Completed and Pending Labs on day of discharge: Labs from last 24 hours 06/12/25 06/12/25 06/12/25 04:50 04:38 01:16 WBC 5.48 6.23 RBC 3.38 L 3.22 L Hgb 9.9 L 9.2 L Hct 29.7 L 27.2 L MCV 88 85 MCH 29.3 28.6 MCHC 33.3 33.8 RDW 14.1 14.1 Plt Count 86 L 113 L MPV 10.7 9.4 Immature Gran % 0.3 Neutrophils % 66.0 Band Neutrophils % Lymphocytes % 23.4 Atypical Lymphs % Monocytes % 8.7 Eosinophils % 1.3 Basophils % 0.3 Metamyelocytes % Myelocytes % Promyelocytes % Other Cells % Nucleated RBC % 0.0 Absolute Neutrophils 4.11 Absolute Lymphocytes 1.46 Absolute Monocytes 0.54 Absolute Eosinophils 0.08 Absolute Basophils 0.02 RBC Morphology Polychromasia Hypochromasia Poikilocytosis Basophilic Stippling Anisocytosis Microcytosis Macrocytosis Spherocytes Tear Drop Cells Ovalocytes Stomatocytes Dial-[place] Bodies [place] Cells/Echinocytes Acanthocytes ([place]) Schistocytes PT 10.4 INR 1.0 APTT 23.6 Sodium 133 L Potassium 3.9 Chloride 103 Carbon Dioxide 15.3 L Anion Gap 14.7 H BUN 64 H Creatinine 3.8 H* Est GFR (CKD-EPI 2020) 10.92 Glucose 104 Calcium 9.5 Magnesium 1.6 L Total Bilirubin 1.0 AST 23 ALT 20 Alkaline Phosphatase 61 Total Protein 6.5 Albumin 3.4 ABO/Rh A Positive Antibody Screen POSITIVE Antibody Identification Anti-K Antibody ID Referred Cancelled Crossmatch See Detail 06/12/25 06/11/25 06/11/25 00:14 23:58 23:47 WBC Cancelled RBC Cancelled Hgb Cancelled Hct Cancelled MCV Cancelled MCH Cancelled MCHC Cancelled RDW Cancelled Plt Count Cancelled MPV Cancelled Immature Gran % Cancelled Neutrophils % Cancelled Band Neutrophils % Cancelled Lymphocytes % Cancelled Atypical Lymphs % Cancelled Monocytes % Cancelled Eosinophils % Cancelled Basophils % Cancelled Metamyelocytes % Cancelled Myelocytes % Cancelled Promyelocytes % Cancelled Other Cells % Cancelled Nucleated RBC % Cancelled Absolute Neutrophils Cancelled Absolute Lymphocytes Cancelled Absolute Monocytes Cancelled Absolute Eosinophils Cancelled Absolute Basophils Cancelled RBC Morphology Cancelled Polychromasia Cancelled Hypochromasia Cancelled Poikilocytosis Cancelled Basophilic Stippling Cancelled Anisocytosis Cancelled Microcytosis Cancelled Macrocytosis Cancelled Spherocytes Cancelled Tear Drop Cells Cancelled Ovalocytes Cancelled Stomatocytes Cancelled [place]ial[place] Bodies Cancelled [place] Cells/Echinocytes Cancelled Acanthocytes ([place]) Cancelled Schistocytes Cancelled PT Cancelled INR Cancelled APTT Cancelled Sodium Cancelled Potassium Cancelled Chloride Cancelled Carbon Dioxide Cancelled Anion Gap Cancelled BUN Cancelled Creatinine Cancelled Est GFR (CKD-EPI 2020) Cancelled Glucose Cancelled Calcium Cancelled Magnesium Cancelled Total Bilirubin Cancelled AST Cancelled ALT Cancelled Alkaline Phosphatase Cancelled Total Protein Cancelled Albumin Cancelled ABO/Rh Cancelled Cancelled Antibody Screen Cancelled Cancelled Antibody Identification Antibody ID Referred [facility] All Active Problems (Updated 06/12/25 @ 12:01 by Surinder Morton DO) Parastomal hernia (Acute) Goals of care, counseling/discussion (Acute) Acute GI bleeding (Acute) CKD (chronic kidney disease) (Chronic) Wide-complex tachycardia (Acute) Acute hypotension (Acute) Deficit in activities of daily living (ADL) (Acute) Adult failure to thrive (Acute) Ileum ulcer (Acute) Unintentional weight loss (Acute) GI bleeding (Chronic) PSVT (paroxysmal supraventricular tachycardia) (Acute) At high risk for skin breakdown (Acute) Abn react-external stoma (Acute) Elevated serum creatinine (Acute) Chronic pain in left foot (Acute) Medical History Pacemaker Hypercholesterolemia Stage 4 chronic kidney disease H/O malignant neoplasm of colon History of breast cancer CONTRERAS (nonalcoholic steatohepatitis) Cirrhosis Ischemic neuropathy of foot PAD (peripheral artery disease) Hypertension Paroxysmal atrial fibrillation Surgical History Hemicolectomy (06/30/13) Right, 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 Park @ [facility] [place], 2015-no recurrence Social History Smoking/Tobacco Use Status: Never Smoking risk assessment performed?: Yes Alcohol Intake: never Drug use: Never Substance use type: does not use Housing: house Do you feel safe at home: Yes Do you feel safe in your relationship?: Yes Time Spent with Patient Time Spent with Patient: <45 minutes Time was spent: referring, communicating with other health urgent care physician assistant, counseling the patient and care coordination
== END 2025-06-12 17:00 | disposition left against medical advice (07) ==
LOC: ER 06-12 04:51 → MS 06-12 09:03
PROVIDERS: Admitting Provider Hospitalist; Emergency Provider Student in an Organized Health Care Education/Training Program; PCP Legal Medicine; Responsible Provider Nurse Practitioner Family; Visit Provider Hospitalist
DX: K94.11 Enterostomy hemorrhage (principal); K43.5 Parastomal hernia without obstruction or gangrene; R62.7 Adult failure to thrive; N18.4 Chronic kidney disease, stage 4 (severe); I48.20 Chronic atrial fibrillation, unspecified; K94.19 Other complications of enterostomy; Z95.0 Presence of cardiac pacemaker; D64.9 Anemia, unspecified; D69.6 Thrombocytopenia, unspecified; Z66 Do not resuscitate; Z90.49 Acquired absence of other specified parts of digestive tract; Z85.038 Personal history of other malignant neoplasm of large intestine; K74.60 Unspecified cirrhosis of liver; I47.10 Supraventricular tachycardia, unspecified; R79.89 Other specified abnormal findings of blood chemistry; G89.29 Other chronic pain; E78.00 Pure hypercholesterolemia, unspecified; Z85.3 Personal history of malignant neoplasm of breast; I73.9 Peripheral vascular disease, unspecified; I95.9 Hypotension, unspecified
CPT/HCPCS: 00123; 36430; 80053; 85027; 86850; 86900; 86901; 86920; 93005; 96361; 96374; 96375; 96376; 99222; 99231; 99291; 74176; 82272; 83735; 85025; 85610; 85730; 86870; 86880; 86885; 86905; 93010; 99223; 99236; 99238; G0378; J2470; P9016

== ENCOUNTER 2025-06-12 17:57 | Observation (INO) | payer MEDICARE, SELFPAY ==
[2025-06-12] VITALS (41 sets, daily range): BP systolic 71–126; BP diastolic 43–78; PULSE 55–147; RESP 11–20; TEMP 36.1–36.3; O2SAT 89–100
--- NOTE | 2025-06-12 18:15 | RT.EKG_ITS ---
APPROVED REPORT Exam: Resting ECG Reason for Exam: baseline/screening Patient Location: E HR:143 bpm ECG Measurements Heart Rate 143 AXIS NV [id number] P 0 QRSd 116 QRS -61 QT 360 T 81 QTc 555 Conclusion Supraventricular tachycardia...V-rate>(220-age), QRSd<120 RBBB and LAFB...QRSd >120mS, axis(-40,240) Low voltage, precordial leads...precordial leads <1.0mV LVH with secondary repolarization abnormality...multi-LVH criteria, abnrm ST-T
[2025-06-12 18:51] LABS: Abs Immature Grans 0.02 10^3/uL (0.0-0.06); HCT 32.6 % (36.0-46.0); HGB 10.8 g/dL (11.2-15.7); Immature Grans % 0.4 %; MCH 28.6 pg (27.0-33.0); MCHC 33.1 % (32.0-36.0); MCV 87 fL (80-95); MPV 9.9 fL (8.0-11.0); Platelet Count 108 10^3/uL (130-400); RBC 3.77 10^6/uL (3.93-5.22); RDW 14.1 % (11.7-14.6); RDW-SD 43.5 fL; WBC 5.25 10^3/uL (4.4-10.8)
[2025-06-12 19:02] LABS: INR 1.1 (0.9-1.1); PTT Activated 24.5 sec (20.6-30.2); Prothrombin Time 10.7 sec (9.1-11.1)
[2025-06-12 19:11] LABS: ALT 18 U/L (14-59); AST 23 U/L (15-37); Albumin 3.2 g/dL (3.4-5.0); Alkaline Phosphatase 58 U/L (46-116); Anion Gap 15.4 mmol/L (3-11); BUN 60 mg/dL (7-18); Bilirubin, Total 4.1 mg/dL (0.2-1.0); CO2 15.6 mmol/L (21.0-32.0); Calcium 9.3 mg/dL (8.5-10.1); Chloride 105 mmol/L (98-107); Estimated GFR 12.05 (mL/min/1.73m2); Glucose 99 mg/dL (74-106); Lipase 88 U/L (<78); Magnesium 1.6 mg/dL (1.8-2.4); NT-proBNP 2473 pg/mL (<300); Potassium 3.8 mmol/L (3.5-5.1); Sodium 136 mmol/L (136-145); Total Protein 6.2 g/dL (6.4-8.2)
[2025-06-12 19:22] LABS: Troponin I 56 ng/L (<or=51)
[2025-06-12] MEDS: Normal Saline 500 ML IV (19:30)
--- NOTE | 2025-06-12 20:08 | W.ED.GENAD ---
Discharge Plan Disposition Patient Disposition: Admit to [facility] Condition: Stable Discharge Details Clinical Impression: GI bleeding, Paroxysmal supraventricular tachycardia Primary Care Provider: Dede Miller ED Provider: Stephen Fang Home Meds and New Rx's Prescriptions: No Action gabapentin 600 mg tablet 300 mg PO Q8H Patient Comments: TAKE 1 TABLET BY MOUTH THREE TIMES DAILY HPI General Date/Time Provider Initiated Documentation: 06/12/25 17:59. HPI Narrative: 89 year-old female presents to ED today by POV/ambulating with her with a chief complaint of bleeding of stoma- was in-patient here for this and received transfusions, but was not bleeding anymore and checked herself out AMA today after surgical consult with onset resumed bleeding immediately upon arrival home without symptoms of dizziness/weakness. Patient has had this in the past intermittently and required transfusions- has known yudi-antibody blood. Quality described as bleeding steadily into stoma bag, no radiation to chest pain, shortness of breath, near syncope, hematemesis, coffee-ground emesis. Severity is described as moderate for bleeding. Palliating factors include nothing specific attempted. Provoking factors include nothing specific. Events leading up to the incident/Associated Symptoms: Patient is not a great surgical candidate, has severe CKD, cirrhosis which is likely affecting her clotting factors. Patient not anticoagulated. Related Data Home Medications ?Medication ?Instructions ?Recorded ?Confirmed gabapentin 600 mg tablet 300 mg PO Q8H 06/11/25 06/12/25 Allergies Allergy/AdvReac Type Severity Reaction Status Date / Time No Known Drug Allergies Allergy none Verified 06/12/25 18:19 General Stated Complaint: Abd Prob LETI: 2 Review of Systems All systems reviewed & are unremarkable except as noted in HPI and below Exam Narrative Exam Narrative: GENERAL APPEARANCE: Frail, non-toxic, awake and alert, atraumatic, moderate acute distress. SKIN: Warm, pale, dry, intact, without rashes/lesions/ulcerations. HEAD: Normocephalic, atraumatic, normal hair distribution for gender/age. EYES: Normal conjunctiva, no exudates on lids/lashes. ENT: Nares patent, no circumoral cyanosis, no facial swelling NECK: Supple, trachea midline, painless cervical ROM. LUNGS/CHEST: Lungs CTA bilaterally- no rhonchi/no wheezing, fine rales at bases, non-labored respirations, normal A/P diameter, symmetrical expansion, no chest wall deformity HEART (CV/PV): Irregular rate and rhythm without murmur, no peripheral edema, no JVD. ABDOMEN: Soft, distended, no guarding, diffuse mild tenderness, no erythema around R sided abdominal stoma, bright maroon active oozing of blood into stoma bag MSK: Normal ROM, no swelling/deformity to bilateral UEs or LEs, moving all extremities without weakness, no cyanosis, spine midline without tenderness, normal curvature. NEURO: Mental Status AAOx4 - alert to person, place, time, events No facial droop, no forehead involvement. Motor: No focal weakness - strength 5/5 in bilateral UEs and LEs, proximal and distal, symmetric. Sensory: sensation intact to light touch globally. Gait NT. PSYCH: euthymic, cooperative, pleasant, appropriate speech Course Vital Signs Vital signs: Vital Signs Temperature 36.3 C L 06/12/25 18:00 Pulse 146 H 06/12/25 18:00 Respiratory Rate 20 06/12/25 18:00 Blood Pressure 105/47 L 06/12/25 18:00 Pulse Oximetry 98 06/12/25 18:00 Temperature 36.3 C L 06/12/25 18:48 Temperature Source Oral 06/12/25 18:00 Pulse 146 H 06/12/25 19:31 Pulse 139 H 06/12/25 19:31 Respiratory Rate 14 06/12/25 19:31 Blood Pressure 85/60 L 06/12/25 19:31 Blood Pressure Mean 67 06/12/25 19:31 Pulse Oximetry 99 06/12/25 19:30 Oxygen Delivery Method Room Air 06/12/25 18:48 Oxygen Flow Rate 0 06/12/25 18:00 Pain Level 0 06/12/25 18:48 Lab/Test Results Lab/Test Results: Laboratory Tests Range/Units 06/12/25 18:38 WBC (4.4-10.8) 10^3/uL 5.25 RBC (3.93-5.22) 10^6/uL 3.77 L Hgb (11.2-15.7) g/dL 10.8 L Hct (36.0-46.0) % 32.6 L MCV (80-95) fL 87 MCH (27.0-33.0) pg 28.6 MCHC (32.0-36.0) % 33.1 RDW (11.7-14.6) % 14.1 Plt Count (130-400) 10^3/uL 108 L MPV (8.0-11.0) fL 9.9 Immature Gran % % 0.4 Neutrophils % % 70.2 Lymphocytes % % 21.0 Monocytes % % 6.1 Eosinophils % % 1.7 Basophils % % 0.6 Nucleated RBC % (0.0-0.3) % 0.0 Absolute Neutrophils (1.2-6.7) 10^3/uL 3.69 Absolute Lymphocytes (1.2-3.4) 10^3/uL 1.10 L Absolute Monocytes (0.1-0.8) 10^3/uL 0.32 Absolute Eosinophils (0.0-0.7) 10^3/uL 0.09 Absolute Basophils (0.0-0.2) 10^3/uL 0.03 PT (9.1-11.1) sec 10.7 INR (0.9-1.1) 1.1 APTT (20.6-30.2) sec 24.5 Sodium (136-145) mmol/L 136 Potassium (3.5-5.1) mmol/L 3.8 Chloride (98-107) mmol/L 105 Carbon Dioxide (21.0-32.0) mmol/L 15.6 L Anion Gap (3-11) mmol/L 15.4 H BUN (7-18) mg/dL 60 H Creatinine (0.55-1.02) mg/dL 3.5 H Est GFR (CKD-EPI 2020) (mL/min/1.73m2) 12.05 Glucose (74-106) mg/dL 99 Calcium (8.5-10.1) mg/dL 9.3 Magnesium (1.8-2.4) mg/dL 1.6 L Total Bilirubin (0.2-1.0) mg/dL 4.1 H AST (15-37) U/L 23 ALT (14-59) U/L 18 Alkaline Phosphatase (46-116) U/L 58 Troponin I (<or=51) ng/L 56 H* NT-Pro-B Natriuret Pep (<300) pg/mL 2473 H Total Protein (6.4-8.2) g/dL 6.2 L Albumin (3.4-5.0) g/dL 3.2 L Lipase (<78) U/L 88 H ABO/Rh A Positive Antibody Screen POSITIVE Medical Decision Making This dictation utilizes [id number] dictation software and may contain unedited grammatical errors. 89 year-old female presents to ED today by POV/ambulating with her with a chief complaint of bleeding of stoma- was in-patient here for this and received transfusions, but was not bleeding anymore and checked herself out AMA today after surgical consult with onset resumed bleeding immediately upon arrival home without symptoms of dizziness/weakness. Patient has had this in the past intermittently and required transfusions- has known yudi-antibody blood. Quality described as bleeding steadily into stoma bag, no radiation to chest pain, shortness of breath, near syncope, hematemesis, coffee-ground emesis. Severity is described as moderate for bleeding. Palliating factors include nothing specific attempted. Provoking factors include nothing specific. Events leading up to the incident/Associated Symptoms: Patient is not a great surgical candidate, has severe CKD, cirrhosis which is likely affecting her clotting factors. Patients' medical history: Pacemaker, stage IV CKD, malignant neoplasm of colon, CONTRERAS cirrhosis, PAD, hypertension, atrial fibrillation, paroxysmal SVT. Family and social history: non-smoker, lives at home with . Pertinent exam findings / vital signs include no erythema around stoma, active oozing of blood into stoma bag, irregular runs of tachycardic rhythm that appears to be brief and sinus, with re-capture by pacemaker. Differential / pathologies of concern include GI bleeding, hemorrhage, CHF due to arrhythmia. Diagnostic studies of: - CBC, CMP, coagulation studies, type and screen, CMP, magnesium, troponin, BNP, lipase. - CBC shows no leukocytosis it does show a hemoglobin of 10.8 but with the patient's recent starting of the bleeding I suspect this is falsely elevated and she has not equilibrium at her losses yet - PT/INR within normal limits - PTT within normal limits - Patient has chronic derangements on her metabolic panel including low carbon dioxide, severely elevated BUN at 60 and a creatinine of 3.5 which is her baseline with a GFR of 12 - She has mildly low magnesium which can be repleted from inpatient medicine as bleeding is taking precedence over this at this time - Troponin 56, repeat pending - BNP is elevated at 2473 likely from her renal function and repeated tacky arrhythmias - Lipase mildly elevated at 88 - Portable chest x-ray shows pacer leads in place by my read- vRAD read pending at time of admission - EKG shows a supraventricular tachycardia with right bundle branch block, no widened QT QTc Interventions of: -Consult with General Surgery Dr. Morton- recommends admit, but no surgical intervention at this time, attempt to control bleeding due to uremia with patients chronic liver problems with desmopressin one dose 0.3mcg, the blood has gotten darker indicating likely slowing, consider cardiology consult if patient continues her brief runs of tachyarrhythmia. Will cover an ABD with tegaderm to see if it slows bleeding, should be changed back to bag sometime tonight on in-patient side. -Consulted with Dr. Izaguirre who accepted for admission at 2130. ED Course/Assessment/Plan: 89-year-old female presents with stomal bleeding which has been a frequent complaint in the past, she signed her self out AGAINST MEDICAL ADVICE from hospitalist service today and returned home and immediately had a resumption of bleeding from her stoma site, is actively oozing and she did have some soft blood pressure readings which warranted critical care time to evaluate for blood loss and shock, she did have improved readings over time with 500 mL fluid bolus and 1 unit of packed red blood cells given on emergent basis, she remained asymptomatic of severe blood loss and mentating normally despite some hypotensive readings, she was consulted on by surgery and has no surgical intervention options at this time due to her chronic comorbidities, he recommends DDAVP 1 dose to start with reevaluation, the patient may need cardiology consult if she keeps having paroxysmal tacky arrhythmias. Excepted to hospitalist service, we did attempt to place a direct pressure dressing over the stoma of an ABD pad and Tegaderm that should be replaced in a couple hours time back to a stoma bag to prevent blockage from expelling GI contents. Disposition of GI Bleeding, Paroxysmal Supraventricular Tachycardia. Patient verbalized understanding of the plan and return to ED criteria and engaged in shared decision making. Medical Records Medical records reviewed: Yes I reviewed the patient's medical records. Imaging Data Radiologic Study: Attestation: I personally reviewed and interpreted this imaging study as follows: Imaging: X-Ray My impression: pacer leads in place, no diffuse pulmonary edema Lab Data Lab results reviewed: Yes I reviewed the patient's lab results. Labs: Laboratory Tests Range/Units 06/12/25 18:38 WBC (4.4-10.8) 10^3/uL 5.25 RBC (3.93-5.22) 10^6/uL 3.77 L Hgb (11.2-15.7) g/dL 10.8 L Hct (36.0-46.0) % 32.6 L MCV (80-95) fL 87 MCH (27.0-33.0) pg 28.6 MCHC (32.0-36.0) % 33.1 RDW (11.7-14.6) % 14.1 Plt Count (130-400) 10^3/uL 108 L MPV (8.0-11.0) fL 9.9 Immature Gran % % 0.4 Neutrophils % % 70.2 Lymphocytes % % 21.0 Monocytes % % 6.1 Eosinophils % % 1.7 Basophils % % 0.6 Nucleated RBC % (0.0-0.3) % 0.0 Absolute Neutrophils (1.2-6.7) 10^3/uL 3.69 Absolute Lymphocytes (1.2-3.4) 10^3/uL 1.10 L Absolute Monocytes (0.1-0.8) 10^3/uL 0.32 Absolute Eosinophils (0.0-0.7) 10^3/uL 0.09 Absolute Basophils (0.0-0.2) 10^3/uL 0.03 PT (9.1-11.1) sec 10.7 INR (0.9-1.1) 1.1 APTT (20.6-30.2) sec 24.5 Sodium (136-145) mmol/L 136 Potassium (3.5-5.1) mmol/L 3.8 Chloride (98-107) mmol/L 105 Carbon Dioxide (21.0-32.0) mmol/L 15.6 L Anion Gap (3-11) mmol/L 15.4 H BUN (7-18) mg/dL 60 H Creatinine (0.55-1.02) mg/dL 3.5 H Est GFR (CKD-EPI 2020) (mL/min/1.73m2) 12.05 Glucose (74-106) mg/dL 99 Calcium (8.5-10.1) mg/dL 9.3 Magnesium (1.8-2.4) mg/dL 1.6 L Total Bilirubin (0.2-1.0) mg/dL 4.1 H AST (15-37) U/L 23 ALT (14-59) U/L 18 Alkaline Phosphatase (46-116) U/L 58 Troponin I (<or=51) ng/L 56 H* NT-Pro-B Natriuret Pep (<300) pg/mL 2473 H Total Protein (6.4-8.2) g/dL 6.2 L Albumin (3.4-5.0) g/dL 3.2 L Lipase (<78) U/L 88 H ABO/Rh A Positive Antibody Screen POSITIVE Antibody Identification Anti-K Crossmatch See Detail Quality:SDOH Health Related Social Needs: Health related social needs risk of homeless lonely/isolated Health related social needs details Pt states that she uses home health. PFSH All Active Problems Paroxysmal supraventricular tachycardia (Acute) GI bleeding (Chronic) Parastomal hernia (Acute) Goals of care, counseling/discussion (Acute) Acute GI bleeding (Acute) CKD (chronic kidney disease) (Chronic) Wide-complex tachycardia (Acute) Acute hypotension (Acute) Deficit in activities of daily living (ADL) (Acute) Adult failure to thrive (Acute) Ileum ulcer (Acute) Unintentional weight loss (Acute) GI bleeding (Chronic) PSVT (paroxysmal supraventricular tachycardia) (Acute) At high risk for skin breakdown (Acute) Abn react-external stoma (Acute) Elevated serum creatinine (Acute) Chronic pain in left foot (Acute) Medical History Pacemaker Hypercholesterolemia Stage 4 chronic kidney disease H/O malignant neoplasm of colon History of breast cancer CONTRERAS (nonalcoholic steatohepatitis) Cirrhosis Ischemic neuropathy of foot PAD (peripheral artery disease) Hypertension Paroxysmal atrial fibrillation Surgical History Hemicolectomy (06/30/13) Right, 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 Park @ [facility] [place], 2015-no recurrence Social History Smoking/Tobacco Use Status: Never Smoking risk assessment performed?: Yes Alcohol Intake: never Drug use: Never Substance use type: does not use Housing: house Do you feel safe at home: Yes Do you feel safe in your relationship?: Yes
--- NOTE | 2025-06-12 20:20 | W.SURGCON ---
Date of service: 06/12/25 Time of Service: 20:20 Assessment and Plan Assessment and plan (1) Parastomal ulcer of enterostomy: Status: Suspected Assessment and plan: 89-year-old female William presenting with stomal bleeding. Appears to have stopped in the time since she is presented to the emergency department. Underlying CKD leading to uremia, likely affecting platelet function. Underlying cirrhosis resulting in low platelet counts also affecting platelet function and likely synthetic clotting function. Poor surgical candidate - [place]uña balloon inflated within the ostomy may be an option to temporarily stop bleeding - Recommend DDAVP to help clotting function - No acute surgical interventions recommended at this time - Overall with the patient's multiple medical co-morbidities and worsening health status, she may benefit from further discussions with palliative care and consideration of hospice (2) Acute GI bleeding: Status: Acute Assessment and plan: Although admission hemoglobin was 10.8, patient received another unit of blood in the emergency department. Bleeding appears to have stopped at this time. - Trend hemoglobin - No further transfusions unless evidence of hemoglobin dropping (3) CKD (chronic kidney disease): Status: Chronic (4) Paroxysmal supraventricular tachycardia: Status: Acute Assessment and plan: Having runs of SVT. Possible effect on blood pressure. - Recommend cardiology consult History of Present Illness History of Present Illness Chief Complaint: ostomy bleed Narrative: 89-year-old female with history of end ileostomy, parastomal hernia, cirrhosis, stage IV CKD presenting for recurrent stomal bleeding. Stomal bleeding had been a longstanding problem for the patient, intermittent in nature, but often requiring transfusions. She was found to have an ulcer just below the level of the stoma so she underwent a local stomal revision and resection of small bowel segment/ulcer 05/2024, which was complicated by peristomal abscess requiring IR drain. Stomal bleeding ceased for approximately 1 year until patient was readmitted 03/2025. Since that time patient was admitted 04/2025 with failure to thrive and discharged to SNF. Patient came to hospital last night with recurrent stomal bleeding, left earlier today, returns this evening with stomal bleeding again. Hemoglobin 10.8 upon re-admission to emergency department. Received 1 unit of blood last night, and another 1u of blood in ED tonight. History of CKD, cirrhosis, afib with pacer in place, recurrent stoma bleeds from ileostomy. Denied lightheadedness, chest pain or shortness of breath upon return today. No syncope. Otherwise no fevers, chills, rash, nausea, vomiting, abdominal pain, or other concerns. Having runs of tachycardia on monitor, not fully captured by pacer Review of Systems Constitutional Constitutional: Denies chills, Denies fatigue, Denies fever(s), Denies headache(s), Denies malaise and Denies weakness ENT Ears, Nose, Mouth, and Throat: Denies dizziness and Denies headache(s) Cardiovascular Cardiovascular: Denies chest pain, Reports irregular heart rhythm, Denies leg edema and Denies dyspnea Respiratory Respiratory: Denies cough and Denies dyspnea Gastrointestinal Gastrointestinal: Denies abdominal pain and Reports hematochezia Neurologic Neurologic: Denies confusion, Denies dizziness, Denies headache(s) and Denies weakness Psychiatric Psychiatric: Denies confusion Endocrine Endocrine: Denies fatigue Hematologic/Lymphatic Hematologic/Lymphatic: Denies easy bleeding and Denies easy bruising PFSH All Active Problems Paroxysmal supraventricular tachycardia (Acute) GI bleeding (Chronic) Parastomal hernia (Acute) Goals of care, counseling/discussion (Acute) Acute GI bleeding (Acute) CKD (chronic kidney disease) (Chronic) Wide-complex tachycardia (Acute) Acute hypotension (Acute) Deficit in activities of daily living (ADL) (Acute) Adult failure to thrive (Acute) Ileum ulcer (Acute) Unintentional weight loss (Acute) GI bleeding (Chronic) PSVT (paroxysmal supraventricular tachycardia) (Acute) At high risk for skin breakdown (Acute) Abn react-external stoma (Acute) Elevated serum creatinine (Acute) Chronic pain in left foot (Acute) Medical History Pacemaker Hypercholesterolemia Stage 4 chronic kidney disease H/O malignant neoplasm of colon History of breast cancer CONTRERAS (nonalcoholic steatohepatitis) Cirrhosis Ischemic neuropathy of foot PAD (peripheral artery disease) Hypertension Paroxysmal atrial fibrillation Surgical History Hemicolectomy (06/30/13) Right, 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 [facility] [place] Social History Smoking/Tobacco Use Status: Never Smoking risk assessment performed?: Yes Alcohol Intake: never Drug use: Never Substance use type: does not use Housing: house Do you feel safe at home: Yes Do you feel safe in your relationship?: Yes Exam Const General: cooperative, comfortable and no acute distress Eyes Pupils: PERRL EOM: EOM intact bilaterally Resp Effort & Inspection: normal respiratory effort Cardio Rate: tachycardic Rhythm: abnormal rhythm GI Inspection: scar (well healed) and other (ostomy pink. old blood and stool in bag now - bright red earlier by report) Neuro General: patient alert, patient awake and patient oriented x3 Cognition: normal cognition Speech: speech normal Results Last Vital Signs Temp 36.3 C L 06/12/25 18:48 Pulse 146 H 06/12/25 19:31 Resp 14 06/12/25 19:31 BP 85/60 L 06/12/25 19:31 Pulse Ox 99 06/12/25 19:30 Labs 06/12/25 18:38 06/12/25 18:38 Labs: Laboratory Results - last 24 hr 06/12/25 18:38 WBC 5.25 RBC 3.77 L Hgb 10.8 L Hct 32.6 L MCV 87 MCH 28.6 MCHC 33.1 RDW 14.1 Plt Count 108 L MPV 9.9 Immature Gran % 0.4 Neutrophils % 70.2 Lymphocytes % 21.0 Monocytes % 6.1 Eosinophils % 1.7 Basophils % 0.6 Nucleated RBC % 0.0 Absolute Neutrophils 3.69 Absolute Lymphocytes 1.10 L Absolute Monocytes 0.32 Absolute Eosinophils 0.09 Absolute Basophils 0.03 PT 10.7 INR 1.1 APTT 24.5 Sodium 136 Potassium 3.8 Chloride 105 Carbon Dioxide 15.6 L Anion Gap 15.4 H BUN 60 H Creatinine 3.5 H Est GFR (CKD-EPI 2020) 12.05 Glucose 99 Calcium 9.3 Magnesium 1.6 L Total Bilirubin 4.1 H AST 23 ALT 18 Alkaline Phosphatase 58 Troponin I 56 H* NT-Pro-B Natriuret Pep 2473 H Total Protein 6.2 L Albumin 3.2 L Lipase 88 H ABO/Rh A Positive Antibody Screen POSITIVE
--- NOTE | 2025-06-12 20:45 | DI.RAD_ITS ---
Exam(s) XR PORTABLE CHEST AP EXAM: XR PORTABLE CHEST AP CLINICAL HISTORY: arrhythmia TECHNIQUE: 2D digital imaging was performed of the chest. One image was obtained. An AP view was obtained. COMPARISON: CR,XR XR PORTABLE CHEST AP POST LINE from 05/29/2024 FINDINGS: MEDIASTINUM: Normal. HEART: Normal. There is a cardiac pacing device in stable position. PULMONARY VASCULATURE: Normal. LUNGS: Clear. PLEURAL SPACE: No pleural effusion or pneumothorax. BONE:Within normal limits for the patient's age. Degenerative changes are seen in the shoulders bilaterally. There is calcific tendinosis seen in the left shoulder. OTHER FINDINGS:There are surgical clips in the right upper quadrant of the abdomen. IMPRESSION: 1. No acute pulmonary findings. 2. The preliminary [facility] report was reviewed. DATA REPOSITORY: RADIATION DOSE DELIVERED:
--- NOTE | 2025-06-12 21:05 | HPE_ITS ---
Date of service: 06/12/25 Time of Service: 21:05 Assessment and Plan Assessment and plan (1) 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: Status: Resolved Assessment and plan: - Patient had left AGAINST MEDICAL ADVICE earlier in the day on 06/12/2025 as she initially presented for bleeding but it stopped - Reportedly bleeding recurred once presenting back home which prompted her to come back to the emergency department - Hemoglobin was 9.8 prior to leaving AMA and was found to be 10.8 upon presenting back to the emergency department though there was blood coming from her ostomy - As was mentioned in surgery consultation note from earlier in the day, patient is not surgical candidate recommended ongoing discussion with palliative care - General Surgery was again consulted in the emergency department and recommended DDAVP as this is likely brought on by uremia (2) Chronic atrial fibrillation with RVR: Assessment and plan: - Intermittent episodes of RVR in the emergency department - Required 5 mg IV push diltiazem when she was in the emergency department earlier this morning prior to leaving AMA - Will monitor heart rate and give additional doses of IV rate control medication as needed (3) Pacemaker: Assessment and plan: - Appears to be paced were not having episodes of tachycardia likely brought on by GI bleed as noted above (4) CKD (chronic kidney disease): Assessment and plan: - BUN and creatinine roughly baseline, creatinine 3.4 BUN 60 History of Present Illness History of Present Illness Chief Complaint: bleeding from stoma Narrative: 89-year-old female with a past medical history of pacemaker, A-fib not on anticoagulation, cirrhosis, CKD, and end ileostomy who presents back to the emergency department after leaving AGAINST MEDICAL ADVICE earlier in the day for bleeding from her stoma. Patient reports that she left AMA because she was no longer bleeding, however upon returning home she immediately had significant increasing bleeding from her stoma prompting her to present back to the emergency department. She denies any headache, lightheadedness, dizziness, chest pain, nausea or vomiting. In the emergency department the patient was noted as being somewhat hypotensive though this may have been secondary to blood pressure cuff being placed on her forearm. She also had periods of intermittent A-fib with RVR. Her hemoglobin was checked and was noted to be 10.8 which is actually higher than when she left the hospital earlier in the day where it was in the mid nines. However, there was blood noted coming out of her stoma so she was given a unit of packed red blood cells (in addition to the unit that she received earlier in the morning prior to leaving AMA). Patient was seen by general surgery in the emergency department who in addition to Santi recommended that she be given DDAVP as her elevated BUN may be contributing factor to ongoing bleed. General surgery also reiterated that given patient's CKD stage IV, cirrhosis, and multiple comorbid conditions that she would not be a surgical candidate. At which time emergency room provider paged hospitalist for admission for patient with GI bleed. Review of Systems All systems reviewed & are unremarkable except as noted in HPI and below PFSH All Active Problems (Updated 06/13/25 @ 00:03 by HARI WHITMAN) Paroxysmal supraventricular tachycardia (Acute) GI bleeding (Chronic) Parastomal hernia (Acute) Goals of care, counseling/discussion (Acute) Wide-complex tachycardia (Acute) Acute hypotension (Acute) Deficit in activities of daily living (ADL) (Acute) Ileum ulcer (Acute) Unintentional weight loss (Acute) GI bleeding (Chronic) PSVT (paroxysmal supraventricular tachycardia) (Acute) At high risk for skin breakdown (Acute) Abn react-external stoma (Acute) Elevated serum creatinine (Acute) Chronic pain in left foot (Acute) Medical History Pacemaker Hypercholesterolemia Stage 4 chronic kidney disease H/O malignant neoplasm of colon History of breast cancer CONTRERAS (nonalcoholic steatohepatitis) Cirrhosis Ischemic neuropathy of foot PAD (peripheral artery disease) Hypertension Paroxysmal atrial fibrillation Surgical History Hemicolectomy (06/30/13) Right, 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 [facility] [place] Social History Smoking/Tobacco Use Status: Never Smoking risk assessment performed?: Yes Alcohol Intake: never Drug use: Never Substance use type: does not use Housing: house Do you feel safe at home: Yes Do you feel safe in your relationship?: Yes Meds Allergies and Home Medications Allergies Allergy/AdvReac Type Severity Reaction Status Date / Time No Known Drug Allergies Allergy none Verified 06/12/25 18:19 Home Medications ?Medication ?Instructions ?Recorded ?Confirmed ?Type gabapentin 600 mg tablet 300 mg PO Q8H 06/11/2506/12 History Exam Narrative Exam Narrative: fatigues appearing older female laying in bed in no acute distress, AOx4, heart irregularly irregular, rate ~80bpm, lungs CTAB, abdomen soft non-tender, non- distended with stoma appearing normal without signs of recent bleeding Results Labs 06/12/25 18:38 06/12/25 18:38 Labs: Laboratory Results - last 24 hr 06/12/25 18:38 WBC 5.25 RBC 3.77 L Hgb 10.8 L Hct 32.6 L MCV 87 MCH 28.6 MCHC 33.1 RDW 14.1 Plt Count 108 L MPV 9.9 Immature Gran % 0.4 Neutrophils % 70.2 Lymphocytes % 21.0 Monocytes % 6.1 Eosinophils % 1.7 Basophils % 0.6 Nucleated RBC % 0.0 Absolute Neutrophils 3.69 Absolute Lymphocytes 1.10 L Absolute Monocytes 0.32 Absolute Eosinophils 0.09 Absolute Basophils 0.03 PT 10.7 INR 1.1 APTT 24.5 Sodium 136 Potassium 3.8 Chloride 105 Carbon Dioxide 15.6 L Anion Gap 15.4 H BUN 60 H Creatinine 3.5 H Est GFR (CKD-EPI 2020) 12.05 Glucose 99 Calcium 9.3 Magnesium 1.6 L Total Bilirubin 4.1 H AST 23 ALT 18 Alkaline Phosphatase 58 Troponin I 56 H* NT-Pro-B Natriuret Pep 2473 H Total Protein 6.2 L Albumin 3.2 L Lipase 88 H ABO/Rh A Positive Antibody Screen POSITIVE Last Vital Signs Temp 97.4 F L 06/12/25 18:48 Pulse 59 L 06/12/25 20:41 Resp 14 06/12/25 20:41 BP 105/43 L 06/12/25 20:41 Pulse Ox 96 06/12/25 20:41 Time Spent Time spent with Patient: >75 minutes Time was spent: preparing to see the patient(eg.review tests), obtaining and/or reviewing separately otained hiistory, ordering medications,tests, procedures, referring, communicating with other health childcare attendant, indepentently interpreting results, counseling the patient and care coordination
--- NOTE | 2025-06-12 22:10 | W.PC.ACHO ---
Registration Status: REG ER Primary Language: Preferred Language: Czech ED Information & Data Chief Complaint Abd Prob 06/12/25 20:09 Triage Note patient state she was 06/12/25 18:00 discharged today from the hospital today and after reaching home she noticed bleeding in her stoma. Medical / Surgical History (Last Reviewed 06/12/25 @ 21:47 by Surinder Morton DO) Pacemaker Hypercholesterolemia Stage 4 chronic kidney disease H/O malignant neoplasm of colon History of breast cancer CONTRERAS (nonalcoholic steatohepatitis) Cirrhosis Ischemic neuropathy of foot PAD (peripheral artery disease) Hypertension Paroxysmal atrial fibrillation (Last Reviewed 06/12/25 @ 21:47 by Surinder Morton DO) Hemicolectomy (06/30/13) Colostomy Colonoscopy Most Recent Vital Signs Temperature 36.3 C L 06/12/25 18:48 Temperature Source Oral 06/12/25 18:00 Pulse 59 L 06/12/25 20:41 Pulse 62 06/12/25 20:41 Respiratory Rate 14 06/12/25 20:41 Blood Pressure 105/43 L 06/12/25 20:41 Blood Pressure Mean 64 06/12/25 20:41 Pulse Oximetry 96 06/12/25 20:41 Oxygen Delivery Method Room Air 06/12/25 18:48 Oxygen Flow Rate 0 06/12/25 18:00 Pain Level 0 06/12/25 18:48 Allergies No Known Drug Allergies Allergy (Verified 06/12/25 18:19) none IV IV Catheter Type [Left Saline Lock Antecubital] IV Catheter Gauge [Left 20 Antecubital] Diagnostics 06/12/25 06/12/25 Range/Units 21:55 18:38 WBC 5.25 (4.4-10.8) 10^3/uL RBC 3.77 L (3.93-5.22) 10^6/uL Hgb 10.8 L (11.2-15.7) g/dL Hct 32.6 L (36.0-46.0) % MCV 87 (80-95) fL MCH 28.6 (27.0-33.0) pg MCHC 33.1 (32.0-36.0) % RDW 14.1 (11.7-14.6) % Plt Count 108 L (130-400) 10^3/uL MPV 9.9 (8.0-11.0) fL Immature Gran % 0.4 % Neutrophils % 70.2 % Lymphocytes % 21.0 % Monocytes % 6.1 % Eosinophils % 1.7 % Basophils % 0.6 % Nucleated RBC % 0.0 (0.0-0.3) % Absolute Neutrophils 3.69 (1.2-6.7) 10^3/uL Absolute Lymphocytes 1.10 L (1.2-3.4) 10^3/uL Absolute Monocytes 0.32 (0.1-0.8) 10^3/uL Absolute Eosinophils 0.09 (0.0-0.7) 10^3/uL Absolute Basophils 0.03 (0.0-0.2) 10^3/uL PT 10.7 (9.1-11.1) sec INR 1.1 (0.9-1.1) APTT 24.5 (20.6-30.2) sec Sodium 136 (136-145) mmol/L Potassium 3.8 (3.5-5.1) mmol/L Chloride 105 (98-107) mmol/L Carbon Dioxide 15.6 L (21.0-32.0) mmol/L Anion Gap 15.4 H (3-11) mmol/L BUN 60 H (7-18) mg/dL Creatinine 3.5 H (0.55-1.02) mg/dL Est GFR (CKD-EPI 2020) 12.05 (mL/min/1.73m2) Glucose 99 (74-106) mg/dL Calcium 9.3 (8.5-10.1) mg/dL Magnesium 1.6 L (1.8-2.4) mg/dL Total Bilirubin 4.1 H (0.2-1.0) mg/dL AST 23 (15-37) U/L ALT 18 (14-59) U/L Alkaline Phosphatase 58 (46-116) U/L Troponin I Pending 56 H* (<or=51) ng/L NT-Pro-B Natriuret Pep 2473 H (<300) pg/mL Total Protein 6.2 L (6.4-8.2) g/dL Albumin 3.2 L (3.4-5.0) g/dL Lipase 88 H (<78) U/L ABO/Rh A Positive Antibody Screen POSITIVE Antibody Identification Anti-K Crossmatch See Detail Intake and Output - 24 Hour Total 06/12/25 17:57 thru 06/12/25 18:00 Weight 63.503 kg Falls Risk Assessment History of Falls No History 06/12/25 18:49 Contributing Factors No Factors 06/12/25 18:49 Ambulatory Aids Uses ambulatory device 06/12/25 18:49 Tubes/Lines None 06/12/25 18:49 Gait Evaluation W/no contributing factors 06/12/25 18:49 Cognition No cognitive impairment 06/12/25 18:49 Fall Total Score 06/12/25 18:49 Level of Risk Moderate Risk 06/12/25 18:49 Problems (Last Reviewed 06/12/25 @ 21:47 by Surinder Morton, DO) Paroxysmal supraventricular tachycardia (Acute) Acute GI bleeding (Acute) CKD (chronic kidney disease) (Chronic) v v v v v v v v v Sending and/or Receiving Nurses: Please use comment section below to note any information pertinent to the patient hand-off not included above. Information / Comments: patient returned to ER after leaving AMA earlier in day because she was not bleeding. after returning home, started to bleed per stoma and returned to ER. 1 additional unit of PRBC given this ER visit. 500ml NS bolus given. Will give desmopressin in ER. Small amount of blood observed in bag on admission to ER. bag removed, ABD applied. no bleeding through. Heart rate will go from 130s-150s briefly and then back to 50s. Patient is alert and oriented. Report received from: Doug Hodge @ [id number]
[2025-06-12 22:21] LABS: Troponin I 56 ng/L (<or=51)
--- NOTE | 2025-06-12 22:57 | DI.VRAD_ITS ---
PROCEDURE INFORMATION: Exam: XR Chest Exam date and time: 06/12/2025 9:18 PM Age: 89 years old Clinical indication: Other: Arythmia; Prior surgery; Surgery date: 6+ months; Surgery type: Pacemaker; Arrhythmia TECHNIQUE: Imaging protocol: Radiologic exam of the chest. Views: 1 view. COMPARISON: CR XR PORTABLE CHEST AP POST LINE 05/29/2024 6:23 PM FINDINGS: Tubes, catheters and devices: Cardiac pacemaker remains in place. Leads appear to be in good position. Lungs: Unremarkable. No consolidation. Pleural spaces: Unremarkable. No pleural effusion. No pneumothorax. Heart/Mediastinum: Unremarkable. No cardiomegaly. Bones/joints: Mild thoracic scoliosis. Moderate degenerative changes of the spine and both shoulders. No acute osseous abnormality. IMPRESSION: No acute abnormality Dictated and Authenticated by: Eleno Justice MD. Orderin Leoncio Mitchell MD
[2025-06-13] VITALS (12 sets, daily range): BP systolic 77–115; BP diastolic 40–67; PULSE 60–138; RESP 16–18; TEMP 36.1–36.6; O2SAT 96–99
[2025-06-13] MEDS: Metoprolol 5 MG/5 ML VIAL IVP (03:53)
[2025-06-13] MEDS: Normal Saline Flush 10 ML SYR (04:14)
[2025-06-13] MEDS: Normal Saline 500 ML IV (04:15)
--- NOTE | 2025-06-13 07:08 | NUR.NOTE ---
Access chart to get disposition of patient, someone called for patient asking if she was ready to come home. Nursing Note:
--- NOTE | 2025-06-13 07:39 | W.PM.PROGNOT ---
Date of Service Date of service: 06/13/25 Time of Service: 07:39 Assessment and Plan Assessment and plan (1) GI bleeding: Status: Chronic Assessment and plan: 89-year-old female with CKD, cirrhosis, A-fib returning with bleeding from right lower quadrant ileostomy. No bleeding since presenting to the hospital. Chronic, recurrent problem likely related to ileal ulcer within the parastomal hernia?previously temporarily improved after ileostomy revision. Received DDAVP to help with clotting in setting of CKD with uremia. -Poor surgical candidate. No interventions planned - Encourage ambulation prior to discharge and evaluate for recurrent bleed - No further transfusions at this time unless demonstrating a hemoglobin less than 7 - Educated patient and staff that small amount of bleeding can appear extensive when diluted with an intestinal contents - Consider repeating DDAVP in the future if bleeding recurs - Consider [place] balloon tamponade again in the future if bleeding recurs - follow-up with operating surgeon Dr. Webb - Palliative care recommendations appreciated (2) Parastomal ulcer of enterostomy: Status: Suspected (3) Ileum ulcer: Status: Acute (4) Parastomal hernia: Status: Acute Subjective Subjective Interval history since last seen: No further bleeding since presenting to the emergency department last night. No abdominal pain. Received DDAVP Exam Const General: cooperative, comfortable and no acute distress Eyes Sclera: sclerae normal Pupils: PERRL EOM: EOM intact bilaterally Resp Effort & Inspection: normal respiratory effort and no cough GI Inspection: obesity, scar (Well-healed) and other (Right lower quadrant ileostomy pink with brown liquid stool in bag) Palpation: soft Skin General skin exam: turgor normal, no ecchymosis and no pallor Neuro General: patient alert, patient awake and patient oriented x3 Cognition: normal cognition Speech: speech normal Objective Last Vital Signs Temp 36.1 C L 06/13/25 03:23 Pulse 60 06/13/25 05:55 Resp 16 06/13/25 03:23 BP 93/54 L 06/13/25 05:55 Pulse Ox 98 06/13/25 03:23 Laboratory Results - last 24 hr 06/12/25 06/12/25 18:38 21:55 WBC 5.25 RBC 3.77 L Hgb 10.8 L Hct 32.6 L MCV 87 MCH 28.6 MCHC 33.1 RDW 14.1 Plt Count 108 L MPV 9.9 Immature Gran % 0.4 Neutrophils % 70.2 Lymphocytes % 21.0 Monocytes % 6.1 Eosinophils % 1.7 Basophils % 0.6 Nucleated RBC % 0.0 Absolute Neutrophils 3.69 Absolute Lymphocytes 1.10 L Absolute Monocytes 0.32 Absolute Eosinophils 0.09 Absolute Basophils 0.03 PT 10.7 INR 1.1 APTT 24.5 Sodium 136 Potassium 3.8 Chloride 105 Carbon Dioxide 15.6 L Anion Gap 15.4 H BUN 60 H Creatinine 3.5 H Est GFR (CKD-EPI 2020) 12.05 Glucose 99 Calcium 9.3 Magnesium 1.6 L Total Bilirubin 4.1 H AST 23 ALT 18 Alkaline Phosphatase 58 Troponin I 56 H* 56 H* NT-Pro-B Natriuret Pep 2473 H Total Protein 6.2 L Albumin 3.2 L Lipase 88 H ABO/Rh A Positive Antibody Screen POSITIVE Antibody Identification Anti-K Crossmatch See Detail Time Spent with Patient Time Spent with Patient: <25 minutes Time was spent: preparing to see the patient(eg.review tests), referring, communicating with other health healthcare advisory services manager, counseling the patient and care coordination
[2025-06-13 08:17] LABS: HCT 35.1 % (36.0-46.0); HGB 11.7 g/dL (11.2-15.7); MCH 28.5 pg (27.0-33.0); MCHC 33.3 % (32.0-36.0); MCV 86 fL (80-95); MPV 10.3 fL (8.0-11.0); RBC 4.10 10^6/uL (3.93-5.22); RDW 14.8 % (11.7-14.6); RDW-SD 45.4 fL; WBC 4.96 10^3/uL (4.4-10.8)
[2025-06-13 08:30] LABS: Platelet Count 96 10^3/uL (130-400)
[2025-06-13 08:36] LABS: Anion Gap 11.0 mmol/L (3-11); BUN 61 mg/dL (7-18); CO2 18.0 mmol/L (21.0-32.0); Calcium 9.3 mg/dL (8.5-10.1); Chloride 110 mmol/L (98-107); Estimated GFR 12.93 (mL/min/1.73m2); Glucose 85 mg/dL (74-106); Magnesium 1.7 mg/dL (1.8-2.4); Potassium 4.4 mmol/L (3.5-5.1); Sodium 139 mmol/L (136-145)
[2025-06-13] MEDS: Normal Saline Flush 10 ML SYR IVP (08:52)
--- NOTE | 2025-06-13 09:18 | PDOC.CMIN ---
Date of service: 06/13/25 Time of Service: 09:18 Care Management Initial Assmt Initial Assessment Reason for Hospitalization: GI bleed Functional Status/Living Situation Patient Presentation: Annamarie was admitted to the hospital, after presenting to the ED (06/11/25) for bleeding from her stoma. She left AMA 06/12/25 and was transported by her . Approximately 1 hour later, Annamarie represented to the ED to be evaluated once more, with a chief complaint of bleeding from her stoma; Annamarie was admitted. On Annamarie's previous admission (04/29/25), Annamarie worked with Iris (Options Counselor - [employer]) to complete a longterm MARIJA applications. Per [employer], Annamarie was hesitant to sign this, but after working with Annamarie, and her daughter, the application was sent & received 05/05/25. Per Millicent Lindsey [facility] ([phone]), Annamarie qualifies for CFC highest level of care and has a 'waiver while waiting' meaning she can receive these services while the applications pending. As of now, Annamarie does not have a CM at [facility] for CFC due to being a longterm patient at [facility] [place]. Per [facility] [place], Annamarie was admitted to their facility 05/03/25 for longterm care and was discharged 06/06/25 because she wanted to go home. Per [facility] [place], she was assisted to the car and left with family. [facility] [place] sent a hospice referral, at the time Annamarie was discharged but Annamarie does not have caregivers available to her. Today, Annamarie was lying down in bed when arrived. 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 Annamarie states her goal is to stay home and be able to take care of herself; she appears clear and able to make her own decisions, at this time. CM discussed the option of CFC to increase Annamarie's home support, she declined COA services. Annamarie states she does not have a secondary plan if home does not work, but states she will not consider another SNF. Annamarie has been seen by palliative in the past, CM request consult. Annamarie plans to go home. She is agreeable to a home health, CM requested a PT consult, as her HH services will be new. Town of Residence: [place] Resides with: Spouse Significant Other/Family: Local Caregiver/Guardian: None at this time Natural Supports: family Employment Status: Retired Instrumental Activities of Daily Living (ADLs): Independent (patient states she is independent ) Medications Medication Management: No Issues/Barriers identified Physical Functioning/Mobility Assistive Device: Walker Advance Directives Advance Directives: Do you have an Advance Directive: N 04/30/23, 08:38 AD On File at [facility]: N 04/30/23, 08:38 Date Asked 06/12/25 06/12/25, 00:04 AD Date Reviewed COLST On File at [facility] Yes 04/29/25, 16:28 COLST Date Scanned 04/28/25 06/12/25, 09:03 Code Status Resuscitation Status DNR/DNI Portal Pt does not currently have a portal and education provided: Yes Insurance Coverage/Financial Issues Insurance: [facility] Adv - [id number] Care Team Visit Care Team Role Provider Type Dede Miller Primary Care Provider NON-[facility] STAFF PHYSICIAN Surinder Morton, DO Other Providers OSTEOPATHIC DOCTOR HUNTER Aguilar Emergency Provider PH[employer] SUPERVISOR Jesse Izaguirre MD Admit Provider [facility] STAFF PHYSICIAN Attending Provider Discharge Potential Discharge Needs: PT Evaluation and PCP F/U Appt Anticipated Barriers to Discharge: Medical Status Patient/Family Education Needs: Review discharge instructions, discuss Ask Me Three Transportation: Private vehicle Plan: Annamarie will be discharged home once medically ready. recommends Annamarie will discharge with Dorota - for Annamarie Bridges at discharge, I am hoping we can do new HH PT/OT/RN/KAIAKO KURA TUARUA. Iris from the [facility] [place] [facility] submitted a adjunct faculty for medical terminology MARIJA and it was received 05/05/25. Annamarie will follow up with community providers and plan of care. Annamarie will likely transport via private vehicle by family. Social Determinants of Health Screening Social Determinants of health last assessed in clinic: 06/13/25 Will the Patient Participate in the Screening?: Yes Do you worry about having a steady place to live?: no Problems where you live: no known problems In the past 12 months, have you had to go without electric, gas, oil or water in your home?: no 1. Within the past 12 months, we worried whether our food would run out before we got money to buy more.: Never true 2. Within the past 12 months, the food we bought just didn't last and we didn't have money to get more.: Never true Has lack of transportation kept you from medical appointments or from doing things needed for daily living?: no Has anyone in your life made you feel unsafe or unsupported?: no How hard is it for you to pay for the very basics like food, housing, medical care, and heating? Would you say it is:: Not hard at all Do you want help finding or keeping work or a job?: I do not need or want help If for any reason you need help with day-to-day activities such as bathing, preparing meals, shopping, managing finances, etc., do you get the help you need?: I don?t need any help How often do you feel lonely or isolated from those around you?: Sometimes Do you speak a language other than [place] at home?: No Does the patient want assistance with any of the above?: No Comments: patient reports she reads and is happy to be a loner Health Related Social Needs Health related social needs: feeling lonely/isolated (Z60.8) Health related social needs details: patient states she reads and is happy to be a loner [facility] All Active Problems (Updated 06/13/25 @ 10:56 by Surinder Morton DO) Paroxysmal supraventricular tachycardia (Acute) GI bleeding (Chronic) Parastomal hernia (Acute) Goals of care, counseling/discussion (Acute) Wide-complex tachycardia (Acute) Acute hypotension (Acute) Deficit in activities of daily living (ADL) (Acute) Ileum ulcer (Acute) Unintentional weight loss (Acute) GI bleeding (Chronic) PSVT (paroxysmal supraventricular tachycardia) (Acute) At high risk for skin breakdown (Acute) Abn react-external stoma (Acute) Elevated serum creatinine (Acute) Chronic pain in left foot (Acute) Medical History Pacemaker Hypercholesterolemia Stage 4 chronic kidney disease H/O malignant neoplasm of colon History of breast cancer CONTRERAS (nonalcoholic steatohepatitis) Cirrhosis Ischemic neuropathy of foot PAD (peripheral artery disease) Hypertension Paroxysmal atrial fibrillation Surgical History Hemicolectomy (06/30/13) Right, due to 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 Park @ [facility] [place]-no recurrence Social History Smoking/Tobacco Use Status: Never Smoking risk assessment performed?: Yes Alcohol Intake: never Drug use: Never Substance use type: does not use Housing: house Do you feel safe at home: Yes Do you feel safe in your relationship?: Yes Readmission Within the Past 30 Days Yes or No: No Date of First Admission Date of 1st Admission: 06/12/25 Date of this Admission Date of Admission: 06/12/25 This admission was: Through ED Office Visit Since 1st Admission Have you seen your PCP in the office since discharge?: No Had an appointment Been Scheduled?: No Speicalist Appointments Have you seen any other specialist since your 1st Admission?: No I. Interview patient and/or Family Difficulty reaching your doctor or getting an office appt?: No Have you had trouble purchasing/ or taking medication?: No Have you had trouble with getting meals at home?: No Did you feel ready for discharge when you left the last time: Yes (Left AMA) Were services received that you thought were set up on disch: Yes Did you call your physician beore you came to the ED?: No Did your physician tell you to come in?: No How do you think you became sick enough to come back?: Left AMA, came back If the patient had a VNA ordered Did the patient have a VNA order?: No Assessment for Readmission Summary of readmission circumstances, based upon interviews: The patient left AMA, then did not feel well enough so represented to the ED.
--- NOTE | 2025-06-13 14:14 | IN_ITS ---
PT Notes Visit Reasons: GI Bleed Physical Therapy Inpatient Initial Evaluation Date: 06/13/2025 Referring Doctor: Dorota Freeman NP PT Orders: PT CONSULT: discharge eval Precautions: Fall risk. Standard precautions in place. Ileostomy in place. Pacemaker in situ. Patient Profile/Admitting Diagnosis: Annamarie is an 89-year-old female who has had recent admission s to this hospital due to failure to thrive readmitted here this time for management of parastomal ulcer of enetrostomy, ileum ulcer, parastomal hernia, hemorrhage form ileostomy, CDKD, ans chroninc AF. She is DNR/DNI. PMHx: All Active Problems (Updated 06/13/25 @ 00:03 by HARI WHITMAN) Paroxysmal supraventricular tachycardia (Acute) GI bleeding (Chronic) Parastomal hernia (Acute) Goals of care, counseling/discussion (Acute) Wide-complex tachycardia (Acute) Acute hypotension (Acute) Deficit in activities of daily living (ADL) (Acute) Ileum ulcer (Acute) Unintentional weight loss (Acute) GI bleeding (Chronic) PSVT (paroxysmal supraventricular tachycardia) (Acute) At high risk for skin breakdown (Acute) Abn react-external stoma (Acute) Elevated serum creatinine (Acute) Chronic pain in left foot (Acute) Medical History Pacemaker Hypercholesterolemia Stage 4 chronic kidney disease H/O malignant neoplasm of colon History of breast cancer CONTRERAS (nonalcoholic steatohepatitis) Cirrhosis Ischemic neuropathy of foot PAD (peripheral artery disease) Hypertension Paroxysmal atrial fibrillation Surgical History Hemicolectomy (06/30/13) Right, 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 Park @ [facility] [place], 2015-no recurrence Social History/Home Situation: Lives with Mayur who has been having worsening cognitive issues in a mobile home with 3 steps to enter with rails on B sides. Patient and has been managing patient's ileostomy tube for over 20 years now. Daughters live about half an hour from them and can help as needed. Equipment Owned/DME: 4[employer], FWW Subjective: Wanted to go home as soon as she is cleared. Denied headache, chest pain, and lightheadedness throughout session. Objective: General Observation: Resting in bed. Mayur present in room. Telemetry monitoring in place. Mental Status: Alert and oriented as to person and place. Anxious about Mayur as she feels he definitely need to rest. Able to follow double-step commands. Pain: Reported pain in B feet and R hip with standing up from edge of bed ROM: Right Upper Extremity: Shoulder Flexion allows up to about 110 degrees. Shoulder abduction allows up to about 100 degrees. Elbow flexion WFL. Wrist flexion WFL. Functional opening and closing of hand WFL. Elbow flexion WFL. Wrist flexion WFL. Functional opening and closing of hand WFL. Left Upper Extremity: Shoulder Flexion allows up to about 110 degrees. Shoulder abduction allows up to about 100 degrees. Elbow flexion WFL. Wrist flexion WFL. Functional opening and closing of hand WFL. Elbow flexion WFL. Wrist flexion WFL. Functional opening and closing of hand WFL. Right Lower Extremity: Hip flexion WFL. Hip abduction WFL. Knee flexion WFL. Ankle dorsiflexion to neutral only. Ankle plantarflexion WFL. Left Lower Extremity: Hip flexion WFL. Hip abduction WFL. Knee flexion WFL. Ankle dorsiflexion to neutral only. Ankle plantarflexion WFL. Strength: Right Upper Extremity: Shoulder flexors 3-/5. Shoulder abductors 3-/5. Elbow flexors 3/5. Elbow extensors 3/5. Glassware Verifier weak but functional. Left Upper Extremity:Shoulder flexors 3-/5. Shoulder abductors 3-/5. Elbow flexors 3/5. Elbow extensors 3/5. Glassware Verifier weak but functional. Right Lower Extremity: Hip flexors 3-/5. Hip abductors 3-/5. Knee flexors 3-/5. Knee extensors 3-/5. Ankle dorsiflexors 3-/5. Ankle plantarflexors 4-/5. Left Lower Extremity:Hip flexors 3+/5. Hip abductors 3+/5. Knee flexors 3/5. Knee extensors 3/5. Ankle dorsiflexors 3-/5. Ankle plantarflexors 4-/5. Bed Mobility/Transfers: Minimal verbal cueing provided for use of B hands as needed for support, movement sequence, AD management, and posture to reduce fall risk and minimize pain report Supine to sit stand by assist with HOB at 30 degrees Sit to stand stand by assist with FWW Stand to sit stand by assist with FWW Bed to chair stand by assist with FWW Gait: 150 feet using the front-wheeled walker with stand by assist, wheelchair follow provided for safety. No report of pain, headache, chest pain, and lightheadedness. Denied abdominal pain. Verbal cues given for directions and overall safety. Balance: Static Sitting: Normal Dynamic Sitting: Good Static Standing: Fair Dynamic Standing: Fair Special Tests: Mobility Limitations Standardized Measure [facility] AM-PAC 6 clicks Basic Mobility Inpatient Short Form: Raw Score: 22 CMS Score:21% deficit 4-stage Balance Test: Feet together 10 seconds Semi-tandem <10 seconds Full tandem deferred One-legged stance deferred Informed Consent/Education: Patient instructed in purpose of PT consult and plan of care. Agreeable to proceed with established PT POC to achieve personal goals. Assessment: Patient is an 89-year-old female who presents with clinical signs and symptoms consistent with current/admitting diagnoses that have resulted to mobility limitations, gait instability, generalized weakness, and impairment of motor control as demonstrated by the following impairment level findings: 1. Decreased strength to BUE/ BLE major muscle groups 2. Impaired standing balance 3. Limitation of joint range of motion in B shoulders, B Ankles 4. Impaired functional activity tolerance 5. Pain through R hip and B ankles Impairments are contributing to the following functional limitations: 1. Inability to safely ambulate without assistive device 2. Increase completion time for mobility ADL performance 3. Increased fall risk Patient is assessed as a 54108 high complexity based on the following: History: 89-year-old female with impairment level findings, functional limitations, and past medical history as indicated above Examination: Demonstrable impairment in strength, balance, and mobility level with underlying impairments and functional limitations as documented above with [facility] score of 83% functional deficit Presentation: Evolving Decision Makin high complexity Goals X1 week 1. Supine-Sit independent 2. Sit-Supine independent 3. Sit-Stand independent 4. Stand-Sit independent 5. Bed-Chair independent 6. Chair-Bed independent 7. Independent gait on level surface with use of least restrictive device for at least 300 feet without report of pain nor dyspnea 8. Independent stair negotiation while holding onto bilateral rails for at least 10 steps without report of pain nor dyspnea 9. Independent with home exercise program 10. Good static and dynamic standing balance/tolerance Plan of Care/Treatment Plan: 1-2x/day, 7 days/week x 1 week. Plan of care has been reviewed with the [employer] providing the service under Physical Therapy direction. Initiate Physical Therapy intervention for strengthening, bed mobility, transfers, gait, stairs, balance training, use of assistive device. DISCHARGE RECOMMENDATIONS: PT TREATMENT CODE/TIME: 03016 x 24 minutes for 1 unit (14:14-14:38). Thank you for the opportunity to participate in the care of this patient. Cecilia Moscoso PT, DPT, CLT [facility] [place], [place]
--- NOTE | 2025-06-13 14:46 | PCNE_ITS ---
Date of service: 06/13/25 Time of Service: 15:02 History of Present Illness Narrative: Mrs. Bridges is an 89-year-old woman who has had multiple hospital admissions to [facility] in the last few months. Complex medical history including ongoing failure to thrive, CKD 4, hyperlipidemia, hypertension, history of breast and colon cancer (status post ileostomy 2012) CONTRERAS with cirrhosis, peripheral artery disease, chronic anemia, atrial fibrillation (pacemaker in place). She lives with her in their home in [place]. Patient continues to want to return to her own home. However, combination of her 's medical issues and family feeling unable to provide 24/7 care, hospice declined to admit her to home hospice. She agreed to admission to SNF ([facility]) and as there from 05/03-06/06/25. But then checked herself out of SNF and went home. Reportedly at home until 06/12, when she had Periostial bleeding. Hospital admission overnight a few days ago because of bleeding from stomal area. Hemoglobin was down to 9.2 at that time and she received 1 unit PRBC. History of recurring peristomal ulcer; has had abscess in that area on occasion. She signed out to the hospital on the morning of the 14th AMA after receiving IV fluids and her blood transfusion.She then presented back to the hospital within hours of going home, as peristomal bleeding recurred. She has been seen at each admission by surgical service, which feels she is not a good surgical candidate, given FTT and comorbidities. Surgery also mention that they were concerned that cirrhosis was affecting clotting factors leading to increased bleeding. PC with Daughter Iris: THey help with some shopping and drive them to doctor's appts. No help with housework that she knows off. Iris says that her dad has a licensee and does not have seizures She does not think that they need help at home, house is always clean. She felt dad did OK when Ms. Bridges was in [facility] Iris does not feel that she should be at a meeting, you should just ask them if they want help. Care Team: Primary Care physician: Dr. Paul Erwin HX: Lives with in [place]. Patient unwilling to share any history today, as she is getting ready to return home Advanced Care Planning: Advanced Directive: None on file Health Care Agent: None on file COLST: See 04/28/2025: DNR/DNI, comfort measures only. trial course of antibioitcs. Limitations: NA; Not applicable NQ: Not Queried Assessment and Plan Assessment and plan (1) Parastomal ulcer of enterostomy: Status: Suspected Assessment and plan: Hospitalist and care management team were hoping pt would be willing to meet with us to discuss her goals and therefore start thinking of ways to keep her safe and comfortable at home without requiring recurrent hospital admissions. Patient however if planning to go home (AMA, although she repeatedly tells me that no one told her that she could not go home). She declines to have further discussion with me. PC with daughter Iris today: she feels they are able to manage their lives without assistance at this time. Recommend: Set up a FAMILY MEETING with patient and , palliative Care bioinformatics team member, case management, daughter or other interested family member to discuss Ms. Bridges's goals and how to meet those goals and set up a safe and supportive situation given her declining funciton on ongoing medical issues. If pt is still in the hospital (or back in the hopsital) later this week, and family is agreeable to coming, this could be arranged through Palliative Care Nurse. PLease call us with question or to set up family meeting. (2) Unintentional weight loss: Status: Acute (3) Adult failure to thrive: (4) CKD (chronic kidney disease): (5) Stage 4 chronic kidney disease: [facility] All Active Problems (Updated 06/13/25 @ 10:56 by Surinder Morton DO) Paroxysmal supraventricular tachycardia (Acute) GI bleeding (Chronic) Parastomal hernia (Acute) Goals of care, counseling/discussion (Acute) Wide-complex tachycardia (Acute) Acute hypotension (Acute) Deficit in activities of daily living (ADL) (Acute) Ileum ulcer (Acute) Unintentional weight loss (Acute) GI bleeding (Chronic) PSVT (paroxysmal supraventricular tachycardia) (Acute) At high risk for skin breakdown (Acute) Abn react-external stoma (Acute) Elevated serum creatinine (Acute) Chronic pain in left foot (Acute) Medical History Pacemaker Hypercholesterolemia Stage 4 chronic kidney disease H/O malignant neoplasm of colon History of breast cancer CONTRERAS (nonalcoholic steatohepatitis) Cirrhosis Ischemic neuropathy of foot PAD (peripheral artery disease) Hypertension Paroxysmal atrial fibrillation Surgical History Hemicolectomy (06/30/13) Right, 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 Park @ [facility] [place], 2014-no recurrence Social History Smoking/Tobacco Use Status: Never Smoking risk assessment performed?: Yes Alcohol Intake: never Drug use: Never Substance use type: does not use Housing: house Do you feel safe at home: Yes Do you feel safe in your relationship?: Yes Results Last Vital Signs Temp 36.5 C 06/13/25 11:18 Pulse 64 06/13/25 11:18 Resp 17 06/13/25 11:18 BP 110/54 L 06/13/25 12:51 Pulse Ox 99 06/13/25 11:18 Labs 06/13/25 07:53 06/13/25 07:53 Labs: Laboratory Results - last 24 hr 06/12/25 06/12/25 06/13/25 18:38 21:55 07:53 WBC 5.25 4.96 RBC 3.77 L 4.10 Hgb 10.8 L 11.7 Hct 32.6 L 35.1 L MCV 87 86 MCH 28.6 28.5 MCHC 33.1 33.3 RDW 14.1 14.8 H Plt Count 108 L 96 L MPV 9.9 10.3 Immature Gran % 0.4 Neutrophils % 70.2 Lymphocytes % 21.0 Monocytes % 6.1 Eosinophils % 1.7 Basophils % 0.6 Nucleated RBC % 0.0 Absolute Neutrophils 3.69 Absolute Lymphocytes 1.10 L Absolute Monocytes 0.32 Absolute Eosinophils 0.09 Absolute Basophils 0.03 PT 10.7 INR 1.1 APTT 24.5 Sodium 136 139 Potassium 3.8 4.4 Chloride 105 110 H Carbon Dioxide 15.6 L 18.0 L Anion Gap 15.4 H 11.0 BUN 60 H 61 H Creatinine 3.5 H 3.3 H Est GFR (CKD-EPI 2020) 12.05 12.93 Glucose 99 85 Calcium 9.3 9.3 Magnesium 1.6 L 1.7 L Total Bilirubin 4.1 H AST 23 ALT 18 Alkaline Phosphatase 58 Troponin I 56 H* 56 H* NT-Pro-B Natriuret Pep 2473 H Total Protein 6.2 L Albumin 3.2 L Lipase 88 H ABO/Rh A Positive Antibody Screen POSITIVE Antibody Identification Anti-K Crossmatch See Detail Time Spent Time Spent with Patient Time Spent(min): 60
--- NOTE | 2025-06-13 15:21 | CHAPLAIN ---
Annamarie was admitted on the , and left AMA on the and then was readmitted again yesterday. We remembered each other from her previous admission a month or so ago. She has been living most recently at home with her . She also lives with a daughter and son in law. She plans to return there as well. I will continue to visit.
--- NOTE | 2025-06-13 19:47 | DSE_ITS ---
Date of service: 06/13/25 Time of Service: 19:47 DS: Diagnosis Discharge Diagnosis (1) Parastomal ulcer of enterostomy: Status: Suspected (2) Unintentional weight loss: Status: Acute Discharge Plan Disposition Patient Disposition: Against Medical Advice Condition: Fair Discharge Details Reason For Visit: GI Bleed Admit Date/Time: 06/12/25 21:05 Admit Provider: Jesse Izaguirre Attending Provider: Jesse Izaguirre Primary Care Provider: Dede Miller Hospital Course Hospital Course: 89-year-old female with complex medical history including CKD stage 4, cirrhosis (CONTRERAS), atrial fibrillation (with pacemaker), chronic anemia, and history of colon cancer with ileostomy (2012), presenting again with bleeding from right lower quadrant ileostomy site. No further bleeding noted since this hospital presentation. Bleeding is chronic and recurrent, likely from an ileal ulcer w ithin the parastomal hernia. Previously improved after ileostomy revision. She received DDAVP in setting of CKD and presumed uremia-induced platelet dysfunction. * Not a surgical candidate due to poor functional reserve and multiple comorbidities * No interventions planned at this time * Encourage ambulation prior to discharge, monitor for recurrence * No transfusions unless Hgb < 7 * Educated patient/staff that diluted intestinal content may make small bleeds appear more significant * Consider repeat DDAVP or Acuña balloon tamponade if recurrence * Follow-up with Dr. Webb (operating surgeon) (2) Parastomal ulcer of enterostomy Status: Suspected (3) Ileum ulcer Status: Acute (4) Parastomal hernia Status: Acute Mrs. Bridges is an 89-year-old woman with a history of multiple recent hospitalizations to [facility] over the past several months. She has a complex medical background including failure to thrive, CKD stage 4, hyperlipidemia, hypertension, breast and colon cancer (s/p ileostomy 2012), CONTRERAS with cirrhosis, peripheral artery disease, chronic anemia, and atrial fibrillation with a pacemaker. She lives at home in [place] with her and has consistently expressed a strong desire to return and remain at home. However, due to her 's own health limitations and the family's inability to provide 24/7 care, she was declined for home hospice. She previously agreed to admission to [facility] ([facility] [place]) from 05/03 to 06/06/25, but subsequently discharged herself and returned home. She remained at home until 06/12 when she developed peristomal bleeding and presented to the ED. She was admitted overnight and transfused 1 unit PRBC when hemoglobin was found to be 9.2. She left AMA the morning of 06/12 after receiving IV fluids and transfusion, but returned within hours due to recurrent bleeding. She has been evaluated by surgery at each admission. The surgical team has continued to recommend against operative intervention due to her poor surgical candidacy and concern that cirrhosis is contributing to coagulopathy and increased bleeding risk. Family Discussion: * Iris and family assist with shopping and transportation to appointments. * No formal help at home, although Iris notes the home is always clean. * Iris felt her father did fine when Mrs. Bridges was at [facility] [place]. * Father holds a valid auto crane driver?s license and does not have seizures. * Iris declined participation in further discharge planning, stating, ?you should just ask them if they want help.? Patient Interaction: Patient not forthcoming with additional history during today?s exam, as she is focused on returning home. Patient was again advised of risk of leaving the hospital and left AMA with her . Home Meds and New Rx's Prescriptions: Continued gabapentin 600 mg tablet 300 mg PO Q8H Patient Comments: TAKE 1 TABLET BY MOUTH THREE TIMES DAILY Discharge Instructions Additional Instructions: Given her: * Age and frailty * History of failure to thrive * High surgical risk and recent procedures * Chronic anemia and thrombocytopenia * Recurrent GI bleeding and low baseline hemoglobin ?leaving AMA may significantly increase the risk of morbidity and mortality, especially if follow-up is delayed or missed. Discussed with Dr Saleh Recommendations for Follow Up Recommended tests to be ordered by follow up provider: CBC; med rec Home Meds and New Rx's Prescriptions: Continued gabapentin 600 mg tablet 300 mg PO Q8H Patient Comments: TAKE 1 TABLET BY MOUTH THREE TIMES DAILY Discharge Instructions Additional Instructions: Leaving the Hospital Against Medical Advice (AMA): Important Information You have chosen to leave the hospital before your doctors believe it is medically safe. We want to make sure you understand the possible risks and what you can do to stay as safe as possible. Potential Risks of Leaving the Hospital Early * Your condition could get worse. * You are still at risk for serious complications, such as bleeding from your stoma, dizziness, or changes in your heart rhythm. * You may need to come back. * People who leave early are more likely to return to the hospital within a few days, often in worse condition. * You may miss important treatments or tests. * We had planned additional care (such as follow-up with surgery or palliative care) to help treat your bleeding and manage your comfort. * You might not have all the information you need. * If you leave now, you may not fully understand your medications, follow-up appointments, or warning signs to watch for. What You Should Do Now * Watch for serious symptoms: * Call 911 or go to the ER right away if you have: * New or worsening bleeding from your stoma * Dizziness, fainting, or weakness * Chest pain, shortness of breath, or a fast or irregular heartbeat * Take your medications as instructed. * If you have any questions about your medications, call your doctor or pharmacist. * Keep follow-up appointments. * You were advised to follow up with Dr. Webb (General Surgery) and Palliative Care. Please contact them to schedule. * Contact your primary care provider within 1?2 days for a check-in. Your Decision You have the right to make your own healthcare decisions. We want to be sure you are fully informed and understand that leaving AMA increases your health risks. Please call us or return to the hospital if you change your mind or need more help. Referrals: [facility] [OTHER, Hospice] Referral Note: Follow up post hospitalization.Dede Miller [Primary Care Provider, Medicine] Referral Note: Follow up in 1 week post hospitalization. Efren Webb MD [ [facility] STAFF PHYSICIAN, Surgery] Referral Note: Follow up in one-two weeks Referrals: Efren Webb MD [ [facility] STAFF PHYSICIAN, Surgery] Referral Note: ileostomy bleed follow up Problems: Ileum ulcer; Parastomal hernia; GI bleeding Discharge Data Discharge Date/Time-TO BE ENTERED AT DEPARTURE: 06/13/25 16:36 DS: Summary Time Spent with Patient providing and/or coordinating discharge services: Less than 30 minutes Status at Discharge Functional status at discharge: uses cane/walker Overall status at discharge: patient is back to baseline Mental Status: mental status grossly normal Speech and Movement: speech and movement normal Mood: congruent mood Affect: normal affect Quality:SDOH Health Related Social Needs: Health related social needs lonely/isolated Health related social needs details patient states she reads and is happy to be a loner Health related social needs details: patient states she reads and is happy to be a loner Exam Const General: cooperative, comfortable, no acute distress and other (frail appearing) Eyes EOM: EOM intact bilaterally Resp Effort & Inspection: normal respiratory effort and no cough Cardio Rate: regular rate GI Inspection: non-distended, scar (midline well healed) and other (RLQ stoma pink and healthy, no bleeding or ulcers) Skin General skin exam: turgor normal and no ecchymosis Neuro General: patient alert and patient awake Speech: speech normal Psych Mental Status: mental status grossly normal Speech and Movement: speech and movement normal Mood: congruent mood Affect: normal affect DS: Data Vitals/I&O Vitals and I&O: Vital Signs Temperature 36.3 C L 06/13/25 15:16 Temperature Source Temporal Artery Scan 06/13/25 15:16 Pulse 65 06/13/25 15:16 Pulse Rhythm Irregular 06/12/25 23:08 Pulse 62 06/12/25 20:41 Respiratory Rate 16 06/13/25 15:16 Respiratory Effort Normal, Non-Labored 06/12/25 23:08 Respiratory Depth Normal 06/12/25 23:08 Respiratory Pattern Normal 06/12/25 23:08 Blood Pressure 115/51 L 06/13/25 15:16 Blood Pressure Mean 72 06/13/25 15:16 Pulse Oximetry 99 06/13/25 15:16 Oxygen Delivery Method Room Air 06/13/25 15:16 Oxygen Flow Rate 0 06/13/25 15:16 Pain Level 0 06/13/25 08:53 Comment rn notified 06/13/25 11:18 Intake & Output 06/12/25 06/13/25 06/13/25 23:59 11:59 23:59 Intake Total 500 / 500 510 / 510 Output Total 400 / 850 450 / 850 Balance 500 / 500 110 / -340 -450 / -340 Weight 60.9 kg Intake: IV 500 / 500 510 / 510 Output: Urine 300 / 600 300 / 600 Stool 100 / 250 150 / 250 Other: Urine Color Yellow Yellow Urine Appearance Clear Clear Urine Odor Normal Normal Comment voided x 1 in toilet, missing measuring hat Stool Size Small Stool Characteristics Liquid Data Completed and Pending Labs on day of discharge: Labs from last 24 hours 06/13/25 06/12/25 06/12/25 07:53 21:55 18:38 WBC 4.96 RBC 4.10 Hgb 11.7 Hct 35.1 L MCV 86 MCH 28.5 MCHC 33.3 RDW 14.8 H Plt Count 96 L MPV 10.3 Sodium 139 Potassium 4.4 Chloride 110 H Carbon Dioxide 18.0 L Anion Gap 11.0 BUN 61 H Creatinine 3.3 H Est GFR (CKD-EPI 2020) 12.93 Glucose 85 Calcium 9.3 Magnesium 1.7 L Troponin I 56 H* ABO/Rh A Positive Antibody Screen POSITIVE Antibody Identification Anti-K Crossmatch See Detail PFSH All Active Problems (Updated 06/13/25 @ 10:56 by Surinder Morton, DO) Paroxysmal supraventricular tachycardia (Acute) GI bleeding (Chronic) Parastomal hernia (Acute) Goals of care, counseling/discussion (Acute) Wide-complex tachycardia (Acute) Acute hypotension (Acute) Deficit in activities of daily living (ADL) (Acute) Ileum ulcer (Acute) Unintentional weight loss (Acute) GI bleeding (Chronic) PSVT (paroxysmal supraventricular tachycardia) (Acute) At high risk for skin breakdown (Acute) Abn react-external stoma (Acute) Elevated serum creatinine (Acute) Chronic pain in left foot (Acute) Medical History Pacemaker Hypercholesterolemia Stage 4 chronic kidney disease H/O malignant neoplasm of colon History of breast cancer CONTRERAS (nonalcoholic steatohepatitis) Cirrhosis Ischemic neuropathy of foot PAD (peripheral artery disease) Hypertension Paroxysmal atrial fibrillation Surgical History Hemicolectomy (06/30/13) Right, 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 Park @ [facility] [place], 2014-no recurrence Social History Smoking/Tobacco Use Status: Never Smoking risk assessment performed?: Yes Alcohol Intake: never Drug use: Never Substance use type: does not use Housing: house Do you feel safe at home: Yes Do you feel safe in your relationship?: Yes Time Spent with Patient Time Spent with Patient: <45 minutes Time was spent: referring, communicating with other health critical care technician and counseling the patient
== END 2025-06-13 16:36 | disposition left against medical advice (07) ==
LOC: ER 21:46 → MS 06-13 01:04
PROVIDERS: Admitting Provider Family Medicine; Emergency Provider Physician Assistant; PCP Legal Medicine; Responsible Provider Nurse Practitioner Family; Visit Provider Family Medicine
DX: K94.11 Enterostomy hemorrhage (principal); I47.10 Supraventricular tachycardia, unspecified; N18.4 Chronic kidney disease, stage 4 (severe); I48.20 Chronic atrial fibrillation, unspecified; K63.3 Ulcer of intestine; Z95.0 Presence of cardiac pacemaker; R63.4 Abnormal weight loss; R62.7 Adult failure to thrive; Z85.038 Personal history of other malignant neoplasm of large intestine; K75.81 Nonalcoholic steatohepatitis (NASH); K74.69 Other cirrhosis of liver; I73.9 Peripheral vascular disease, unspecified; I12.9 Hypertensive chronic kidney disease with stage 1 through stage 4 chronic kidney disease, or unspecified chronic kidney disease; K43.5 Parastomal hernia without obstruction or gangrene; E78.00 Pure hypercholesterolemia, unspecified; Z85.3 Personal history of malignant neoplasm of breast; I95.9 Hypotension, unspecified; G57.82 Other specified mononeuropathies of left lower limb; Z66 Do not resuscitate
CPT/HCPCS: 00123; 36415; 80048; 80053; 83690; 85027; 86850; 86900; 86901; 86920; 93005; 96360; 97162; 99222; 99231; 99285; 71045; 83735; 83880; 84484; 85025; 85610; 85730; 86870; 93010; 99223; 99238; G0378; J2597; P9016